=== PATIENT | male | born 1960 | race Caucasian/White ===

== ENCOUNTER → 2018-09-05 11:45 | Outpatient (CLI) | payer BC, MEDICARE, SELFPAY ==
--- NOTE | 2018-09-05 11:52 | VDUE_ITS ---
Reason For Study: ESRD Right Arm Left Arm Right Cephalic Vein at the wrist measures Left Cephalic Vein at the wrist measures 0.17 x 0.18 cm. 0.13 x 0.15 cm. Right Cephalic Vein in the forearm measures Left Cephalic Vein in the forearm measures 0.18 x 0.20 cm. 0.04 x 0.04 cm. Right Cephalic Vein below antecub measures Left Cephalic Vein below antecub measures 0.19 x 0.20 cm. 0.06 x 0.05 cm. Right Cephalic Vein above antecub measures Left Cephalic Vein above antecub measures 0.33 x 0.35 cm. 0.21 x 0.26 cm. Right Cephalic Vein mid bicep measures 0.29 Left Cephalic Vein at mid bicep measures x 0.30 cm. 0.22 x 0.25 cm. Right Cephalic Vein at the shoulder measures Left Cephalic Vein at the shoulder measures 0.40 x 0.41 cm. 0.38 x 0.37 cm. Right Basilic Vein at the origin measures Basilic vein at origin measures 0.37 x 0.36 0.54 x 0.52 cm. cm. Right Basilic Vein mid bicep measures 0.44 x Basilic vein at bicep measures 0.31 x 0.32 0.48 cm. cm. Right Basilic Vein above antecub measures Basilic vein above antecub measures 0.34 x 0.30 x 0.33 cm. 0.34 cm. Rt Brachial artery mesures 0.56 x 0.56 cm Lt Brachial artery measures 0.48 x 0.47 cm with a velocity of 86.7 cm/sec. with a velocity of 71.1 cm/sec. Rt Radial artery measures 0.25 x 0.24 cm Lt Radial artery measures 0.23 x 0.23 cm with a velocity of 72 cm/sec. with a velocity of 62.3 cm/sec. Interpretation Summary Patent and compressible bilateral upper extremity cephalic and basilic veins. Diminutive bilateral forearm cephalic veins Adequate bilateral upper arm basilic veins Normal diameter bilateral radial and brachial arteries. Ordering Physician: Dilan Grayson Performed By: Frida Carranza RVT ?
== END ==
PROVIDERS: Referring Provider Internal Medicine Nephrology; Visit Provider Internal Medicine Nephrology
DX: Z01.818 Encounter for other preprocedural examination (principal); N18.6 End stage renal disease
CPT/HCPCS: 93970; 93971; G0365

== ENCOUNTER → 2019-12-23 11:00 | Outpatient (CLI) | payer BC, MEDICARE, SELFPAY | DX: D84.9 Immunodeficiency, unspecified (principal); R05 Cough ==

== ENCOUNTER → 2020-02-18 15:21 | Outpatient (CLI) | payer MEDICARE, BC, SELFPAY ==
[2020-02-18 15:33] LABS: Bacteria 0 SEEN /hpf (None Seen); Mucous, Urine 0 SEEN /hpf (<or=2+); Red Blood Cells-Urine 0 SEEN /hpf (0-5); Squamous Epithelial Cells - UA 0 SEEN /hpf (0-5); White Blood Cells 0 SEEN /hpf (0-5)
[2020-02-18 18:20] LABS: Hematocrit 47.3 % (40-54); Hemoglobin 14.8 g/dL (13.0-16.5); Mean Corp Hgb Conc 31.3 g/dL (32-36); Mean Corpuscular Hgb 28.1 pg (27.0-32.0); Mean Corpuscular Volume 89.9 fL (80-94); Mean Platelet Vol. 9.4 fl (6.2-12.0); Platelet Count 237 K/mm3 (150-450); RBC Distribution Width CV 13.9 % (11.6-14.6); Red Blood Count 5.26 M/mm3 (4.6-6.2); White Blood Count 5.2 K/mm3 (4.4-11.0)
[2020-02-18 18:22] LABS: Color, Urine Yellow (Yellow); Glucose, Dipstick Normal (Normal); Ketone-Dipstick Negative (Negative); Leukocyte Esterase-Dipstick Negative /ul (Negative); Nitrite-Dipstick Negative (Negative); Occult Blood-Urine Negative /ul (Negative); Protein-Dipstick Negative (Negative); Urine Bilirubin Dipstick Negative (Negative); Urine Clarity Clear (Clear); Urine Urobilinogen Normal (Normal)
[2020-02-18 18:36] LABS: ALB/GLOB Ratio 1.1 RATIO (0.9-2.4); AST(SGOT) 15 U/L (15-37); Alanine Aminotransfer ALT/SGPT 31 U/L (16-61); Albumin, Serum 3.9 g/dL (3.2-5.0); Alkaline Phosphatase 115 U/L (45-117); Anion Gap 8 (5-15); BUN 22 mg/dL (7-18); BUN/Creat Ratio 18.2 RATIO (10-20); Calcium,Total 9.5 mg/dL (8.5-10.1); Chloride 109 mmol/L (98-107); Creatinine, Serum 1.21 mg/dL (0.70-1.30); EST Glomerular Filtration Rate 65 mL/min (>60); Est Glom Filt Rate - Afr Amer 79 mL/min (>60); Globulin 3.4 g/dL (2.2-4.2); Glucose 88 mg/dL (74-106); Magnesium 1.8 mg/dL (1.6-2.6); Phosphorus 2.9 mg/dL (2.5-4.9); Potassium 4.1 mmol/L (3.5-5.1); Protein, Total 7.3 g/dL (6.4-8.2); Sodium Level 140 mmol/L (136-145)
[2020-02-18 18:40] LABS: Vitamin D,25 Hydroxy 16.4 ng/mL
[2020-02-18 19:00] LABS: Microalbumin,Random Urine 10.1 mg/L (NO RANGE EST.); Microalbumin:Creatinine Ratio 9.6 mg/g CRE (<30 mg/g CRE); Protein, Urine (Random) 25.5 mg/dL (<11.9); Protein:Creat Ratio 243 mg/g CRE (0-200)
[2020-02-19 09:04] LABS: PTHIN 213.2 pg/mL (18.4-80.1)
[2020-02-23 07:25] LABS: Tacrolimus (FK506) 4.3 ng/mL (2.0-20.0)
== END ==
PROVIDERS: Referring Provider Pediatrics Pediatric Nephrology; Visit Provider Pediatrics Pediatric Nephrology
DX: D89.9 Disorder involving the immune mechanism, unspecified (principal); D64.9 Anemia, unspecified; E55.9 Vitamin D deficiency, unspecified; Z94.0 Kidney transplant status
CPT/HCPCS: 36415; 80053; 80197; 81001; 82043; 82306; 82570; 83735; 83970; 84100; 84156; 85027

== ENCOUNTER 2020-02-24 14:56 | Outpatient (RCR) | payer MEDICARE, BC, SELFPAY ==
[2020-02-24 18:19] LABS: Hemoglobin 14.8 g/dL (13.0-16.5); Mean Corp Hgb Conc 30.8 g/dL (32-36); Mean Corpuscular Hgb 28.4 pg (27.0-32.0); Mean Platelet Vol. 9.9 fl (6.2-12.0); Platelet Count 241 K/mm3 (150-450); RBC Distribution Width SD 47.6 fl (35.1-43.9); Red Blood Count 5.22 M/mm3 (4.6-6.2); White Blood Count 5.3 K/mm3 (4.4-11.0)
[2020-02-24 18:39] LABS: Anion Gap 6 (5-15); BUN 20 mg/dL (7-18); BUN/Creat Ratio 17.1 RATIO (10-20); Calcium,Total 9.5 mg/dL (8.5-10.1); Chloride 111 mmol/L (98-107); Creatinine, Serum 1.17 mg/dL (0.70-1.30); EST Glomerular Filtration Rate 68 mL/min (>60); Est Glom Filt Rate - Afr Amer 82 mL/min (>60); Glucose 72 mg/dL (74-106); Potassium 4.2 mmol/L (3.5-5.1); Sodium Level 141 mmol/L (136-145)
[2020-02-27 15:44] LABS: Tacrolimus (FK506) 2.1 ng/mL (2.0-20.0)
== END 2020-02-24 18:00 | disposition home or self-care (01) ==
LOC: MTLAB 14:56
DX: Z48.298 Encounter for aftercare following other organ transplant (principal); D50.0 Iron deficiency anemia secondary to blood loss (chronic); D84.9 Immunodeficiency, unspecified; R79.9 Abnormal finding of blood chemistry, unspecified; R68.89 Other general symptoms and signs; Z94.0 Kidney transplant status; Z79.899 Other long term (current) drug therapy
CPT/HCPCS: 36415; 80048; 80197; 85027

== ENCOUNTER 2020-03-23 16:26 | Outpatient (RCR) | payer MEDICARE, BC, SELFPAY ==
[2020-03-10 18:00] LABS: Hematocrit 50.8 % (40-54); Hemoglobin 15.5 g/dL (13.0-16.5); Mean Corp Hgb Conc 30.5 g/dL (32-36); Mean Corpuscular Hgb 27.9 pg (27.0-32.0); Mean Corpuscular Volume 91.5 fL (80-94); Mean Platelet Vol. 10.1 fl (6.2-12.0); Platelet Count 214 K/mm3 (150-450); RBC Distribution Width CV 13.7 % (11.6-14.6); RBC Distribution Width SD 46.7 fl (35.1-43.9); Red Blood Count 5.55 M/mm3 (4.6-6.2); White Blood Count 5.6 K/mm3 (4.4-11.0)
[2020-03-10 18:26] LABS: Anion Gap 8 (5-15); BUN 25 mg/dL (7-18); Chloride 110 mmol/L (98-107); Creatinine, Serum 1.25 mg/dL (0.70-1.30); EST Glomerular Filtration Rate 63 mL/min (>60); Est Glom Filt Rate - Afr Amer 76 mL/min (>60); Glucose 75 mg/dL (74-106); Sodium Level 140 mmol/L (136-145)
[2020-03-15 09:41] LABS: Tacrolimus (FK506) 4.8 ng/mL (2.0-20.0)
[2020-03-23 17:35] LABS: Hematocrit 50.6 % (40-54); Hemoglobin 15.6 g/dL (13.0-16.5); Mean Corp Hgb Conc 30.8 g/dL (32-36); Mean Corpuscular Hgb 28.3 pg (27.0-32.0); Mean Corpuscular Volume 91.8 fL (80-94); Mean Platelet Vol. 9.9 fl (6.2-12.0); Platelet Count 220 K/mm3 (150-450); RBC Distribution Width CV 13.6 % (11.6-14.6); Red Blood Count 5.51 M/mm3 (4.6-6.2); White Blood Count 5.8 K/mm3 (4.4-11.0)
[2020-03-23 17:59] LABS: Anion Gap 5 (5-15); BUN 19 mg/dL (7-18); Chloride 110 mmol/L (98-107); Creatinine, Serum 1.13 mg/dL (0.70-1.30); EST Glomerular Filtration Rate 70 mL/min (>60); Est Glom Filt Rate - Afr Amer 85 mL/min (>60); Glucose 75 mg/dL (74-106); Potassium 4.1 mmol/L (3.5-5.1); Sodium Level 141 mmol/L (136-145)
[2020-03-27 14:25] LABS: Tacrolimus (FK506) 5.7 ng/mL (2.0-20.0)
== END 2020-03-23 18:00 | disposition home or self-care (01) ==
LOC: MTLAB 16:26
DX: Z94.0 Kidney transplant status (principal); Z48.298 Encounter for aftercare following other organ transplant; D50.0 Iron deficiency anemia secondary to blood loss (chronic); D84.9 Immunodeficiency, unspecified; R79.9 Abnormal finding of blood chemistry, unspecified; R68.89 Other general symptoms and signs; Z79.899 Other long term (current) drug therapy
CPT/HCPCS: 36415; 80051; 80197; 82565; 82947; 84520; 85027

== ENCOUNTER 2020-05-04 16:06 | Outpatient (RCR) | payer MEDICARE, BC, SELFPAY ==
[2020-04-06 17:56] LABS: Hematocrit 52.3 % (40-54); Hemoglobin 16.5 g/dL (13.0-16.5); Mean Corp Hgb Conc 31.5 g/dL (32-36); Mean Corpuscular Volume 91.9 fL (80-94); Mean Platelet Vol. 9.8 fl (6.2-12.0); Platelet Count 204 K/mm3 (150-450); RBC Distribution Width CV 13.2 % (11.6-14.6); RBC Distribution Width SD 45.1 fl (35.1-43.9); Red Blood Count 5.69 M/mm3 (4.6-6.2); White Blood Count 6.1 K/mm3 (4.4-11.0)
[2020-04-06 18:07] LABS: AST(SGOT) 15 U/L (15-37); Alanine Aminotransfer ALT/SGPT 22 U/L (16-61); Alkaline Phosphatase 115 U/L (45-117); Anion Gap 8 (5-15); BUN 25 mg/dL (7-18); BUN/Creat Ratio 17.5 RATIO (10-20); Calcium,Total 10.2 mg/dL (8.5-10.1); Chloride 107 mmol/L (98-107); Creatinine, Serum 1.43 mg/dL (0.70-1.30); EST Glomerular Filtration Rate 54 mL/min (>60); Est Glom Filt Rate - Afr Amer 65 mL/min (>60); Glucose 90 mg/dL (74-106); Magnesium 1.7 mg/dL (1.6-2.6); Phosphorus 2.9 mg/dL (2.5-4.9); Potassium 4.4 mmol/L (3.5-5.1); Sodium Level 139 mmol/L (136-145); Uric Acid 5.9 mg/dL (3.5-7.2)
[2020-04-06 18:21] LABS: Protein:Creat Ratio 226 mg/g CRE (0-200)
[2020-04-11 13:05] LABS: Tacrolimus (FK506) 4.7 ng/mL (2.0-20.0)
[2020-04-20 17:44] LABS: Hematocrit 54.4 % (40-54); Hemoglobin 17.5 g/dL (13.0-16.5); Mean Corp Hgb Conc 32.2 g/dL (32-36); Mean Corpuscular Hgb 29.7 pg (27.0-32.0); Mean Corpuscular Volume 92.2 fL (80-94); Mean Platelet Vol. 9.9 fl (6.2-12.0); Platelet Count 200 K/mm3 (150-450); RBC Distribution Width CV 12.9 % (11.6-14.6); RBC Distribution Width SD 43.4 fl (35.1-43.9); White Blood Count 6.6 K/mm3 (4.4-11.0)
[2020-04-20 17:58] LABS: Anion Gap 5 (5-15); BUN 18 mg/dL (7-18); Chloride 110 mmol/L (98-107); Creatinine, Serum 1.35 mg/dL (0.70-1.30); EST Glomerular Filtration Rate 57 mL/min (>60); Est Glom Filt Rate - Afr Amer 69 mL/min (>60); Glucose 86 mg/dL (74-106); Potassium 4.4 mmol/L (3.5-5.1); Sodium Level 138 mmol/L (136-145)
[2020-04-23 20:18] LABS: Tacrolimus (FK506) 7.3 ng/mL (2.0-20.0)
[2020-05-04 17:48] LABS: Hematocrit 52.5 % (40-54); Hemoglobin 16.9 g/dL (13.0-16.5); Mean Corp Hgb Conc 32.2 g/dL (32-36); Mean Corpuscular Hgb 29.4 pg (27.0-32.0); Mean Corpuscular Volume 91.5 fL (80-94); Mean Platelet Vol. 9.9 fl (6.2-12.0); Platelet Count 243 K/mm3 (150-450); RBC Distribution Width CV 12.4 % (11.6-14.6); RBC Distribution Width SD 41.7 fl (35.1-43.9); Red Blood Count 5.74 M/mm3 (4.6-6.2); White Blood Count 6.7 K/mm3 (4.4-11.0)
[2020-05-04 18:07] LABS: Protein, Urine (Random) 27.7 mg/dL (<11.9); Protein:Creat Ratio 181 mg/g CRE (0-200)
[2020-05-04 18:11] LABS: AST(SGOT) 12 U/L (15-37); Alanine Aminotransfer ALT/SGPT 25 U/L (16-61); Albumin, Serum 3.9 g/dL (3.2-5.0); Alkaline Phosphatase 118 U/L (45-117); Anion Gap 6 (5-15); BUN 26 mg/dL (7-18); BUN/Creat Ratio 17.7 RATIO (10-20); Calcium,Total 9.8 mg/dL (8.5-10.1); Chloride 111 mmol/L (98-107); Creatinine, Serum 1.47 mg/dL (0.70-1.30); EST Glomerular Filtration Rate 52 mL/min (>60); Est Glom Filt Rate - Afr Amer 63 mL/min (>60); Glucose 100 mg/dL (74-106); Magnesium 1.9 mg/dL (1.6-2.6); Phosphorus 2.4 mg/dL (2.5-4.9); Potassium 4.1 mmol/L (3.5-5.1); Sodium Level 139 mmol/L (136-145); Uric Acid 7.3 mg/dL (3.5-7.2)
[2020-05-08 14:34] LABS: Tacrolimus (FK506) 6.8 ng/mL (2.0-20.0)
== END 2020-05-04 18:00 | disposition home or self-care (01) ==
LOC: MTLAB 16:06
DX: R79.9 Abnormal finding of blood chemistry, unspecified (principal); D50.0 Iron deficiency anemia secondary to blood loss (chronic); D84.9 Immunodeficiency, unspecified; R68.89 Other general symptoms and signs; Z94.0 Kidney transplant status; Z79.899 Other long term (current) drug therapy; Z48.298 Encounter for aftercare following other organ transplant
CPT/HCPCS: 36415; 80048; 80051; 80197; 82040; 82247; 82565; 82570; 82947; 83735; 84075; 84100; 84156; 84450; 84460; 84520; 84550; 85027

== ENCOUNTER 2020-06-01 16:02 | Outpatient (RCR) | payer MEDICARE, BC, SELFPAY ==
[2020-05-16 07:45] LABS: Absolute Lymphocyte Count 0.46 X10^3/uL (0.83-4.51); Absolute Neutrophil Count 2.2 X10^3/uL (2.0-7.7); Basophil# 0.03 X10^3/uL; Basophil% 0.9 % (0-1); Eosinophil# 0.07 X10^3/uL; Hematocrit 53.2 % (40-54); Lymphocyte # 0.46 X10^3/ul (4.0); Lymphocyte % 13.4 % (19-41); Mean Corpuscular Hgb 29.5 pg (27.0-32.0); Mean Corpuscular Volume 92.4 fL (80-94); Mean Platelet Vol. 9.5 fl (6.2-12.0); Monocyte# 0.65 X10^3/uL; NRBC Flagged by Analyzer 0 % (0-5); Neutrophil # 2.18 X10^3/uL (2.7-7.7); Neutrophil % 63.5 % (47-70); POSITIVE DIFFERENTIAL YES; Platelet Count 182 K/mm3 (150-450); RBC Distribution Width CV 12.3 % (11.6-14.6); RBC Distribution Width SD 42.1 fl (35.1-43.9); Red Blood Count 5.76 M/mm3 (4.6-6.2); White Blood Count 3.4 K/mm3 (4.4-11.0)
[2020-05-16 07:47] LABS: Differential Indicated SCAN CRITERIA MET
[2020-05-16 08:00] LABS: Protein, Urine (Random) 32.1 mg/dL (<11.9); Protein:Creat Ratio 223 mg/g CRE (0-200)
[2020-05-16 08:21] LABS: AST(SGOT) 15 U/L (15-37); Alanine Aminotransfer ALT/SGPT 24 U/L (16-61); Albumin, Serum 3.7 g/dL (3.2-5.0); Alkaline Phosphatase 106 U/L (45-117); Anion Gap 6 (5-15); BUN 17 mg/dL (7-18); BUN/Creat Ratio 13.4 RATIO (10-20); Bilirubin, Direct 0.11 mg/dL (0.00-0.30); Calcium,Total 9.9 mg/dL (8.5-10.1); Chloride 110 mmol/L (98-107); Cholesterol 161 mg/dL (200); Creatinine, Serum 1.27 mg/dL (0.70-1.30); EST Glomerular Filtration Rate 62 mL/min (>60); Est Glom Filt Rate - Afr Amer 74 mL/min (>60); Ferritin 899 ng/mL (26-388); Globulin 3.4 g/dL (2.2-4.2); Glucose 111 mg/dL (74-106); High Density Lipoprotein 45 mg/dL; Iron 63 ug/dL (65-175); Iron Binding Capacity,Total 229 ug/dL (250-450); Magnesium 1.9 mg/dL (1.6-2.6); PERCENT IRON SATURATION 27.5 % (15.0-55.0); Phosphorus 2.3 mg/dL (2.5-4.9); Potassium 4.3 mmol/L (3.5-5.1); Protein, Total 7.1 g/dL (6.4-8.2); Sodium Level 140 mmol/L (136-145); Triglycerides 198 mg/dL; Uric Acid 5.2 mg/dL (3.5-7.2); Very Low Density Lipoprotein 40 mg/dL (5-40)
[2020-05-16 09:41] LABS: Hemoglobin A1c 5.2 % (3.8-5.6)
[2020-05-18 12:19] LABS: Pathologist Review Reviewed
[2020-05-18 18:38] LABS: Protein, Urine (Random) 26.4 mg/dL (<11.9); Protein:Creat Ratio 259 mg/g CRE (0-200)
[2020-05-19 15:39] LABS: Tacrolimus (FK506) 3.5 ng/mL (2.0-20.0)
[2020-06-01 17:54] LABS: Hematocrit 51.5 % (40-54); Hemoglobin 16.2 g/dL (13.0-16.5); Mean Corp Hgb Conc 31.5 g/dL (32-36); Mean Corpuscular Hgb 28.4 pg (27.0-32.0); Mean Corpuscular Volume 90.4 fL (80-94); Mean Platelet Vol. 9.6 fl (6.2-12.0); Platelet Count 219 K/mm3 (150-450); RBC Distribution Width CV 12.3 % (11.6-14.6); RBC Distribution Width SD 40.3 fl (35.1-43.9); White Blood Count 6.2 K/mm3 (4.4-11.0)
[2020-06-01 18:19] LABS: Anion Gap 8 (5-15); BUN 18 mg/dL (7-18); Chloride 107 mmol/L (98-107); Creatinine, Serum 1.11 mg/dL (0.70-1.30); EST Glomerular Filtration Rate 72 mL/min (>60); Est Glom Filt Rate - Afr Amer 87 mL/min (>60); Glucose 86 mg/dL (74-106); Sodium Level 138 mmol/L (136-145)
[2020-06-01 18:30] LABS: PSA,Total - Annual Screen 2.48 ng/mL (0.00-4.00)
[2020-06-02 10:00] LABS: PTHIN 191.9 pg/mL (18.4-80.1)
== END 2020-06-01 18:00 | disposition home or self-care (01) ==
LOC: MTLAB 16:02
PROVIDERS: Family Medicine
DX: R79.9 Abnormal finding of blood chemistry, unspecified (principal); D50.0 Iron deficiency anemia secondary to blood loss (chronic); D84.9 Immunodeficiency, unspecified; R68.89 Other general symptoms and signs; Z94.0 Kidney transplant status; Z79.899 Other long term (current) drug therapy; Z48.298 Encounter for aftercare following other organ transplant; Z12.5 Encounter for screening for malignant neoplasm of prostate
CPT/HCPCS: 36415; 80048; 80051; 80061; 80076; 80197; 81050; 82565; 82570; 82728; 82947; 83036; 83540; 83550; 83735; 83970; 84100; 84153; 84156; 84520; 84550; 85025; 85027; G0103

== ENCOUNTER 2020-06-29 07:55 | Outpatient (RCR) | payer MEDICARE, BC, SELFPAY ==
[2020-06-15 18:01] LABS: Protein, Urine (Random) 40.2 mg/dL (<11.9); Protein:Creat Ratio 207 mg/g CRE (0-200)
[2020-06-15 18:08] LABS: Hematocrit 51.9 % (40-54); Hemoglobin 16.6 g/dL (13.0-16.5); Mean Corpuscular Hgb 28.4 pg (27.0-32.0); Mean Corpuscular Volume 88.9 fL (80-94); Mean Platelet Vol. 9.8 fl (6.2-12.0); Platelet Count 237 K/mm3 (150-450); RBC Distribution Width CV 12.4 % (11.6-14.6); RBC Distribution Width SD 40.2 fl (35.1-43.9); Red Blood Count 5.84 M/mm3 (4.6-6.2); White Blood Count 7.2 K/mm3 (4.4-11.0)
[2020-06-15 18:23] LABS: AST(SGOT) 15 U/L (15-37); Alanine Aminotransfer ALT/SGPT 26 U/L (16-61); Alkaline Phosphatase 107 U/L (45-117); Anion Gap 11 (5-15); BUN 20 mg/dL (7-18); BUN/Creat Ratio 14.1 RATIO (10-20); Calcium,Total 9.7 mg/dL (8.5-10.1); Chloride 107 mmol/L (98-107); Creatinine, Serum 1.42 mg/dL (0.70-1.30); EST Glomerular Filtration Rate 54 mL/min (>60); Est Glom Filt Rate - Afr Amer 65 mL/min (>60); Glucose 136 mg/dL (74-106); Magnesium 1.5 mg/dL (1.6-2.6); Phosphorus 2.4 mg/dL (2.5-4.9); Potassium 3.9 mmol/L (3.5-5.1); Sodium Level 140 mmol/L (136-145); Uric Acid 5.7 mg/dL (3.5-7.2)
[2020-06-19 12:48] LABS: Tacrolimus (FK506) 7.3 ng/mL (2.0-20.0)
[2020-06-29 10:39] LABS: Absolute Lymphocyte Count 0.67 X10^3/uL (0.83-4.51); Absolute Neutrophil Count 3.5 X10^3/uL (2.0-7.7); Basophil# 0.02 X10^3/uL; Basophil% 0.4 % (0-1); Hematocrit 49.3 % (40-54); Hemoglobin 15.9 g/dL (13.0-16.5); Lymphocyte # 0.67 X10^3/ul (0.83-4.51); Lymphocyte % 13.6 % (19-41); Mean Corp Hgb Conc 32.3 g/dL (32-36); Mean Corpuscular Hgb 28.9 pg (27.0-32.0); Mean Corpuscular Volume 89.6 fL (80-94); Mean Platelet Vol. 9.9 fl (6.2-12.0); Monocyte# 0.58 X10^3/uL; Monocyte% 11.8 % (0-10); NRBC Flagged by Analyzer 0 % (0-5); Neutrophil # 3.51 X10^3/uL (2.7-7.7); Neutrophil % 71.6 % (47-70); Platelet Count 222 K/mm3 (150-450); RBC Distribution Width CV 12.7 % (11.6-14.6); RBC Distribution Width SD 41.7 fl (35.1-43.9); White Blood Count 4.9 K/mm3 (4.4-11.0)
[2020-06-29 10:51] LABS: Protein:Creat Ratio 209 mg/g CRE (0-200)
[2020-06-29 10:55] LABS: AST(SGOT) 14 U/L (15-37); Alanine Aminotransfer ALT/SGPT 21 U/L (16-61); Albumin, Serum 3.7 g/dL (3.2-5.0); Alkaline Phosphatase 96 U/L (45-117); BUN 19 mg/dL (7-18); Calcium,Total 9.6 mg/dL (8.5-10.1); Chloride 108 mmol/L (98-107); Creatinine, Serum 1.09 mg/dL (0.70-1.30); EST Glomerular Filtration Rate 73 mL/min (>60); Est Glom Filt Rate - Afr Amer 89 mL/min (>60); Glucose 109 mg/dL (74-106); Phosphorus 2.2 mg/dL (2.5-4.9); Potassium 4.3 mmol/L (3.5-5.1); Sodium Level 139 mmol/L (136-145); Uric Acid 4.9 mg/dL (3.5-7.2)
[2020-07-01 13:32] LABS: Tacrolimus (FK506) 3.6 ng/mL (2.0-20.0)
== END 2020-06-29 18:00 | disposition home or self-care (01) ==
LOC: MTLAB 07:55
DX: R79.9 Abnormal finding of blood chemistry, unspecified (principal); D50.0 Iron deficiency anemia secondary to blood loss (chronic); D84.9 Immunodeficiency, unspecified; R68.89 Other general symptoms and signs; Z94.0 Kidney transplant status; Z79.899 Other long term (current) drug therapy; Z48.298 Encounter for aftercare following other organ transplant
CPT/HCPCS: 36415; 80048; 80197; 82040; 82247; 82310; 82374; 82435; 82565; 82570; 82947; 83735; 84075; 84100; 84132; 84156; 84295; 84450; 84460; 84520; 84550; 85025; 85027

== ENCOUNTER 2020-07-27 16:25 | Outpatient (RCR) | payer MEDICARE, BC, SELFPAY ==
[2020-07-13 17:49] LABS: Hemoglobin 15.8 g/dL (13.0-16.5); Mean Corp Hgb Conc 32.9 g/dL (32-36); Mean Corpuscular Hgb 29.5 pg (27.0-32.0); Mean Corpuscular Volume 89.7 fL (80-94); Platelet Count 226 K/mm3 (150-450); RBC Distribution Width CV 12.6 % (11.6-14.6); RBC Distribution Width SD 41.4 fl (35.1-43.9); Red Blood Count 5.35 M/mm3 (4.6-6.2); White Blood Count 7.6 K/mm3 (4.4-11.0)
[2020-07-13 18:09] LABS: AST(SGOT) 17 U/L (15-37); Alanine Aminotransfer ALT/SGPT 27 U/L (16-61); Albumin, Serum 3.9 g/dL (3.2-5.0); Alkaline Phosphatase 119 U/L (45-117); Anion Gap 11 (5-15); BUN 16 mg/dL (7-18); BUN/Creat Ratio 10.8 RATIO (10-20); Calcium,Total 9.8 mg/dL (8.5-10.1); Chloride 108 mmol/L (98-107); Creatinine, Serum 1.48 mg/dL (0.70-1.30); EST Glomerular Filtration Rate 52 mL/min (>60); Est Glom Filt Rate - Afr Amer 62 mL/min (>60); Glucose 112 mg/dL (74-106); Magnesium 1.7 mg/dL (1.6-2.6); Phosphorus 2.4 mg/dL (2.5-4.9); Potassium 4.3 mmol/L (3.5-5.1); Sodium Level 140 mmol/L (136-145); Uric Acid 5.9 mg/dL (3.5-7.2)
[2020-07-13 18:16] LABS: Protein, Urine (Random) 45.9 mg/dL (<11.9); Protein:Creat Ratio 228 mg/g CRE (0-200)
[2020-07-27 18:11] LABS: Hematocrit 47.4 % (40-54); Hemoglobin 15.3 g/dL (13.0-16.5); Mean Corp Hgb Conc 32.3 g/dL (32-36); Mean Corpuscular Hgb 29.1 pg (27.0-32.0); Mean Corpuscular Volume 90.3 fL (80-94); Mean Platelet Vol. 9.7 fl (6.2-12.0); Platelet Count 236 K/mm3 (150-450); RBC Distribution Width CV 13.1 % (11.6-14.6); RBC Distribution Width SD 43.1 fl (35.1-43.9); Red Blood Count 5.25 M/mm3 (4.6-6.2); White Blood Count 6.6 K/mm3 (4.4-11.0)
[2020-07-27 18:29] LABS: Anion Gap 9 (5-15); BUN 16 mg/dL (7-18); Chloride 109 mmol/L (98-107); EST Glomerular Filtration Rate 55 mL/min (>60); Est Glom Filt Rate - Afr Amer 66 mL/min (>60); Glucose 93 mg/dL (74-106); Potassium 4.4 mmol/L (3.5-5.1); Sodium Level 140 mmol/L (136-145)
[2020-08-01 08:28] LABS: Tacrolimus (FK506) 5.3 ng/mL (2.0-20.0)
== END 2020-07-27 18:00 | disposition home or self-care (01) ==
LOC: MTLAB 16:25
DX: Z48.298 Encounter for aftercare following other organ transplant (principal); Z11.59 Encounter for screening for other viral diseases; E11.22 Type 2 diabetes mellitus with diabetic chronic kidney disease; I10 Essential (primary) hypertension; D50.0 Iron deficiency anemia secondary to blood loss (chronic); R79.9 Abnormal finding of blood chemistry, unspecified; Z94.0 Kidney transplant status
CPT/HCPCS: 36415; 80048; 80051; 80197; 82040; 82247; 82565; 82570; 82947; 83735; 84075; 84100; 84156; 84450; 84460; 84520; 84550; 85027

== ENCOUNTER 2020-08-24 16:18 | Outpatient (RCR) | payer MEDICARE, BC, SELFPAY ==
[2020-08-24 17:44] LABS: Hematocrit 47.4 % (40-54); Hemoglobin 15.5 g/dL (13.0-16.5); Mean Corp Hgb Conc 32.7 g/dL (32-36); Mean Corpuscular Hgb 29.8 pg (27.0-32.0); Platelet Count 235 K/mm3 (150-450); RBC Distribution Width CV 12.9 % (11.6-14.6); RBC Distribution Width SD 43.2 fl (35.1-43.9); Red Blood Count 5.21 M/mm3 (4.6-6.2); White Blood Count 5.4 K/mm3 (4.4-11.0)
[2020-08-24 18:32] LABS: AST(SGOT) 15 U/L (15-37); Alanine Aminotransfer ALT/SGPT 29 U/L (16-61); Albumin, Serum 3.9 g/dL (3.2-5.0); Alkaline Phosphatase 115 U/L (45-117); Anion Gap 8 (5-15); BUN 18 mg/dL (7-18); Calcium,Total 9.4 mg/dL (8.5-10.1); Chloride 109 mmol/L (98-107); Cholesterol 187 mg/dL (200); Creatinine, Serum 1.29 mg/dL (0.70-1.30); EST Glomerular Filtration Rate 60 mL/min (>60); Est Glom Filt Rate - Afr Amer 73 mL/min (>60); Ferritin 988 ng/mL (26-388); Glucose 98 mg/dL (74-106); High Density Lipoprotein 37 mg/dL; Iron 111 ug/dL (65-175); Iron Binding Capacity,Total 210 ug/dL (250-450); Magnesium 1.7 mg/dL (1.6-2.6); Phosphorus 2.5 mg/dL (2.5-4.9); Potassium 4.1 mmol/L (3.5-5.1); Sodium Level 141 mmol/L (136-145); Triglycerides 486 mg/dL
[2020-08-24 18:36] LABS: Protein, Urine (Random) 38.2 mg/dL (<11.9); Protein:Creat Ratio 211 mg/g CRE (0-200)
[2020-08-27 10:58] LABS: Tacrolimus (FK506) 3.7 ng/mL (2.0-20.0); Transferrin 156 mg/dL (177-329)
== END 2020-08-24 18:00 | disposition home or self-care (01) ==
LOC: MTLAB 16:18
PROVIDERS: PCP Family Medicine
DX: Z48.298 Encounter for aftercare following other organ transplant (principal); Z11.59 Encounter for screening for other viral diseases; I10 Essential (primary) hypertension; D50.0 Iron deficiency anemia secondary to blood loss (chronic); E11.22 Type 2 diabetes mellitus with diabetic chronic kidney disease; R79.9 Abnormal finding of blood chemistry, unspecified; Z94.0 Kidney transplant status
CPT/HCPCS: 80048; 80061; 80197; 82040; 82247; 82570; 82728; 83540; 83550; 83735; 84075; 84100; 84156; 84450; 84460; 84466; 84550; 85027

== ENCOUNTER 2020-09-16 16:22 | Outpatient (RCR) | payer MEDICARE, BC, SELFPAY ==
[2020-09-16 16:31] LABS: Bacteria 0 SEEN /hpf (None Seen); Mucous, Urine 0 SEEN /hpf (<or=2+); Red Blood Cells-Urine 0 SEEN /hpf (0-5); Squamous Epithelial Cells - UA 0 SEEN /hpf (0-5); White Blood Cells 0 SEEN /hpf (0-5)
[2020-09-16 17:43] LABS: Hematocrit 49.5 % (40-54); Mean Corp Hgb Conc 32.3 g/dL (32-36); Mean Corpuscular Hgb 29.4 pg (27.0-32.0); Platelet Count 239 K/mm3 (150-450); RBC Distribution Width CV 12.7 % (11.6-14.6); RBC Distribution Width SD 41.9 fl (35.1-43.9); Red Blood Count 5.44 M/mm3 (4.6-6.2); White Blood Count 5.8 K/mm3 (4.4-11.0)
[2020-09-16 17:51] LABS: Color, Urine Yellow (Yellow); Glucose, Dipstick Normal (Normal); Ketone-Dipstick Negative (Negative); Leukocyte Esterase-Dipstick Negative /ul (Negative); Nitrite-Dipstick Negative (Negative); Occult Blood-Urine Negative /ul (Negative); Protein-Dipstick 15 mg/dl (Negative); Specific Gravity, Urine 1.015 (1.002-1.030); Urine Bilirubin Dipstick Negative (Negative); Urine Clarity Clear (Clear); Urine Urobilinogen 1 mg/dl (Normal); Urine pH 6.5 (5.0 - 8.0)
[2020-09-16 18:08] LABS: ALB/GLOB Ratio 1.2 RATIO (0.9-2.4); AST(SGOT) 21 U/L (15-37); Alanine Aminotransfer ALT/SGPT 26 U/L (16-61); Albumin, Serum 4.1 g/dL (3.2-5.0); Alkaline Phosphatase 97 U/L (45-117); Anion Gap 6 (5-15); BUN 18 mg/dL (7-18); BUN/Creat Ratio 14.3 RATIO (10-20); Calcium,Total 9.9 mg/dL (8.5-10.1); Chloride 109 mmol/L (98-107); Creatinine, Serum 1.26 mg/dL (0.70-1.30); EST Glomerular Filtration Rate 62 mL/min (>60); Est Glom Filt Rate - Afr Amer 75 mL/min (>60); Globulin 3.4 g/dL (2.2-4.2); Glucose 92 mg/dL (74-106); Magnesium 1.8 mg/dL (1.6-2.6); Phosphorus 3.2 mg/dL (2.5-4.9); Potassium 4.1 mmol/L (3.5-5.1); Protein, Total 7.5 g/dL (6.4-8.2); Sodium Level 141 mmol/L (136-145)
[2020-09-16 18:12] LABS: Microalbumin,Random Urine 20.5 mg/L (NO RANGE EST.); Microalbumin:Creatinine Ratio 9.3 mg/g CRE (<30 mg/g CRE); Protein, Urine (Random) 45.6 mg/dL (<11.9); Protein:Creat Ratio 206 mg/g CRE (0-200)
[2020-09-17 08:29] LABS: PTHIN 346.7 pg/mL (18.4-80.1)
[2020-09-21 08:46] LABS: Tacrolimus (FK506) 5.1 ng/mL (2.0-20.0)
== END 2020-09-16 18:00 | disposition home or self-care (01) ==
LOC: MTLAB 16:22
PROVIDERS: PCP Family Medicine
DX: Z94.0 Kidney transplant status (principal); Z48.298 Encounter for aftercare following other organ transplant; R79.9 Abnormal finding of blood chemistry, unspecified; E11.22 Type 2 diabetes mellitus with diabetic chronic kidney disease; Z11.59 Encounter for screening for other viral diseases; D50.0 Iron deficiency anemia secondary to blood loss (chronic); D89.9 Disorder involving the immune mechanism, unspecified; E83.42 Hypomagnesemia; N18.9 Chronic kidney disease, unspecified; I12.9 Hypertensive chronic kidney disease with stage 1 through stage 4 chronic kidney disease, or unspecified chronic kidney disease
CPT/HCPCS: 36415; 80053; 80197; 81001; 82043; 82570; 83735; 83970; 84100; 84156; 85027

== ENCOUNTER 2020-10-27 16:41 | Outpatient (RCR) | payer MEDICARE, BC, SELFPAY ==
[2020-10-27 18:07] LABS: Hematocrit 50.9 % (40-54); Hemoglobin 16.5 g/dL (13.0-16.5); Mean Corp Hgb Conc 32.4 g/dL (32-36); Mean Corpuscular Hgb 29.2 pg (27.0-32.0); Mean Corpuscular Volume 89.9 fL (80-94); Mean Platelet Vol. 9.6 fl (6.2-12.0); Platelet Count 216 K/mm3 (150-450); RBC Distribution Width CV 12.4 % (11.6-14.6); RBC Distribution Width SD 40.4 fl (35.1-43.9); Red Blood Count 5.66 M/mm3 (4.6-6.2); White Blood Count 6.6 K/mm3 (4.4-11.0)
[2020-10-27 18:25] LABS: Anion Gap 6 (5-15); BUN 22 mg/dL (7-18); Chloride 112 mmol/L (98-107); Creatinine, Serum 1.09 mg/dL (0.70-1.30); EST Glomerular Filtration Rate 73 mL/min (>60); Est Glom Filt Rate - Afr Amer 89 mL/min (>60); Glucose 104 mg/dL (74-106); Potassium 4.2 mmol/L (3.5-5.1); Sodium Level 140 mmol/L (136-145)
[2020-10-31 08:31] LABS: Tacrolimus (FK506) 8.1 ng/mL (2.0-20.0)
== END 2020-10-27 18:00 | disposition home or self-care (01) ==
LOC: MTLAB 16:41
PROVIDERS: PCP Family Medicine
DX: Z48.298 Encounter for aftercare following other organ transplant (principal); Z11.59 Encounter for screening for other viral diseases; I12.9 Hypertensive chronic kidney disease with stage 1 through stage 4 chronic kidney disease, or unspecified chronic kidney disease; E11.22 Type 2 diabetes mellitus with diabetic chronic kidney disease; N18.9 Chronic kidney disease, unspecified; D50.0 Iron deficiency anemia secondary to blood loss (chronic); R79.9 Abnormal finding of blood chemistry, unspecified; Z94.0 Kidney transplant status
CPT/HCPCS: 36415; 80051; 80197; 82565; 82947; 84520; 85027

== ENCOUNTER 2020-11-24 16:23 | Outpatient (RCR) | payer MEDICARE, BC, SELFPAY ==
[2020-11-24 18:06] LABS: Hematocrit 47.3 % (40-54); Hemoglobin 15.6 g/dL (13.0-16.5); Mean Corpuscular Hgb 29.1 pg (27.0-32.0); Mean Corpuscular Volume 88.2 fL (80-94); Mean Platelet Vol. 10.1 fl (6.2-12.0); Platelet Count 217 K/mm3 (150-450); RBC Distribution Width CV 12.2 % (11.6-14.6); RBC Distribution Width SD 39.6 fl (35.1-43.9); Red Blood Count 5.36 M/mm3 (4.6-6.2)
[2020-11-24 18:26] LABS: AST(SGOT) 15 U/L (15-37); Alanine Aminotransfer ALT/SGPT 23 U/L (16-61); Albumin, Serum 3.6 g/dL (3.2-5.0); Alkaline Phosphatase 103 U/L (45-117); Anion Gap 8 (5-15); BUN 17 mg/dL (7-18); BUN/Creat Ratio 16.7 RATIO (10-20); Calcium,Total 9.7 mg/dL (8.5-10.1); Chloride 108 mmol/L (98-107); Creatinine, Serum 1.02 mg/dL (0.70-1.30); EST Glomerular Filtration Rate 79 mL/min (>60); Est Glom Filt Rate - Afr Amer 96 mL/min (>60); Glucose 87 mg/dL (74-106); Magnesium 1.7 mg/dL (1.6-2.6); Phosphorus 2.4 mg/dL (2.5-4.9); Potassium 4.1 mmol/L (3.5-5.1); Sodium Level 140 mmol/L (136-145)
[2020-11-30 19:30] LABS: Tacrolimus (FK506) 6.4 ng/mL (2.0-20.0)
== END 2020-12-06 18:00 | disposition home or self-care (01) ==
LOC: MTLAB 16:23
PROVIDERS: PCP Family Medicine
DX: I12.9 Hypertensive chronic kidney disease with stage 1 through stage 4 chronic kidney disease, or unspecified chronic kidney disease (principal); Z48.298 Encounter for aftercare following other organ transplant; Z11.59 Encounter for screening for other viral diseases; D50.0 Iron deficiency anemia secondary to blood loss (chronic); E11.22 Type 2 diabetes mellitus with diabetic chronic kidney disease; R79.9 Abnormal finding of blood chemistry, unspecified; Z94.0 Kidney transplant status; N18.9 Chronic kidney disease, unspecified
CPT/HCPCS: 36415; 80048; 80197; 82040; 82247; 83735; 84075; 84100; 84450; 84460; 85027

== ENCOUNTER 2020-11-25 08:41 | Observation (INO) | payer MEDICARE, BC, SELFPAY ==
[2020-11-25] VITALS (36 sets, daily range): BP systolic 77–131; BP diastolic 54–105; PULSE 58–142; RESP 12–23; TEMP 35.8–36.7; O2SAT 94–100; BMI 34.7; BMI 34.9
--- NOTE | 2020-11-25 08:54 | EKG12_ITS ---
Test Reason : PALP Blood Pressure : / mmHG Vent. Rate : 149 BPM Atrial Rate : 150 BPM P-R Int : 000 ms QRS Dur : 084 ms QT Int : 294 ms P-R-T Axes : 000 -02 -02 degrees QTc Int : 463 ms Atrial fibrillation Abnormal ECG Confirmed by BRENDA BUTLER, NICO ([id number]), pictures editor STEPHANIE BOBBY ([id number]) on 11/26/2020 1:46:53 P M Referred By: DEYA Confirmed By:NAZ GUTIERREZ MD
--- NOTE | 2020-11-25 08:55 | EX.ED.DYSGE1 ---
HPI History of Present Illness Chief Complaint: Palpitations Narrative Narrative: Patient has a history of atrial fibrillation but he is normally in sinus rhythm regardless he is anticoagulated with Eliquis and he takes it every day twice daily. He woke up in the middle the night with palpitations. These persisted the morning. He has no chest pain he has no back pain or tearing sensation. No fevers or chills. PFSH PFS Medical History Afib Polycystic kidney disease Home Medications apixaban [Eliquis] 5 mg PO BID 11/25/20 [History Last Taken Unknown] famotidine 20 mg PO DAILY 11/25/20 [History Last Taken Unknown] magnesium oxide 400 mg PO DAILY 11/25/20 [History Last Taken Unknown] metoprolol succinate 25 mg PO DAILY 11/25/20 [History Last Taken Unknown] Allergy/AdvReac Type Severity Reaction Status Date / Time Acnysyn-Nlv-Djr Reductase Allergy NEEDS Verified 11/25/20 08:59 Inhibitor FOLLOW-UP Surgical History Kidney transplant recipient Social History Smoking Status: Never smoker ROS ROS ED ROS Narrative Past medical history: Reviewed, significant for atrial fibrillation, polycystic kidney disease status post transplant, he is on immunosuppressant agents. Medications: Reviewed Social history: Noncontributory Review of systems: All systems negative except as indicated General: No fever Eyes: No visual changes ENT: No upper airway congestion, normal voice Neck: No neck pain Cardiovascular: No chest pain. Palpitations as in HPI Respiratory: No shortness of breath or cough Gastrointestinal: No abdominal pain, nausea vomiting or diarrhea Genitourinary: No dysuria Musculoskeletal: Denies myalgias no difficulty with ambulation Skin: No rash Neurological: No memory loss, confusion or any focal weakness Psych: No recent behavioral changes Hematologic: No easy bleeding or easy bruising EXAM Physical Exam Narrative Exam Narrative: Physical exam General: He appears relatively comfortable in bed. Head: Normocephalic, Atraumatic Eyes: Conjunctiva not pale ENT: Moist mucous membranes Neck: Supple, Nontender, No lymphadenopathy Cardiovascular: Irregular tachycardia Respiratory: No distress, CTA bilaterally Abdomen: Soft, Nontender, Nondistended Back: Nontender, Normal Inspection. Negative for: CVA tenderness Extremities: Nontender, No edema Skin: Normal color, No rash Neurological: Alert, Normal Strength, Normal Sensation Psychological: Normal affect Const Vital Signs: 11/25/20 08:42 11/25/20 08:53 11/25/20 08:57 Temperature 96.4 F L Temperature Source Temporal Pulse Rate 58 L Pulse Rate [1 (Initial Baseline)] Pulse Rate [2] Pulse Rate [3] Respiratory Rate 19 H Respiratory Rate [1 (Initial Baseline)] Respiratory Rate [2] Respiratory Rate [3] Respiratory Effort Normal Non-Labored Blood Pressure 129/88 H Blood Pressure [1 (Initial Baseline)] Blood Pressure [2] Blood Pressure Mean 101 Pulse Ox 100 98 Oxygen Delivery Method Room Air Room Air Oxygen Delivery Method [1 (Initial Baseline)] Oxygen Delivery Method [2] Oxygen Delivery Method [3] Oxygen Flow Rate (L/min) Oxygen Flow Rate (L/min) [1 (Initial Baseline)] Oxygen Flow Rate (L/min) [2] Oxygen Flow Rate (L/min) [3] 11/25/20 09:40 11/25/20 09:41 11/25/20 09:57 Temperature Temperature Source Pulse Rate 136 H 128 H Pulse Rate [1 (Initial Baseline)] 128 H Pulse Rate [2] 134 H Pulse Rate [3] 127 H Respiratory Rate 18 20 H Respiratory Rate [1 (Initial Baseline)] 20 H Respiratory Rate [2] 23 H Respiratory Rate [3] 15 Respiratory Effort Blood Pressure 118/105 H 118/105 H Blood Pressure [1 (Initial Baseline)] 106/88 H Blood Pressure [2] 106/88 H Blood Pressure Mean 109 Pulse Ox 96 96 Oxygen Delivery Method Nasal Cannula Oxygen Delivery Method [1 (Initial Baseline)] Nasal Cannula Oxygen Delivery Method [2] Nasal Cannula Oxygen Delivery Method [3] Nasal Cannula Oxygen Flow Rate (L/min) 2 Oxygen Flow Rate (L/min) [1 (Initial Baseline)] 2 Oxygen Flow Rate (L/min) [2] 5 Oxygen Flow Rate (L/min) [3] 6 11/25/20 10:07 Temperature Temperature Source Pulse Rate 142 H Pulse Rate [1 (Initial Baseline)] Pulse Rate [2] Pulse Rate [3] Respiratory Rate 18 Respiratory Rate [1 (Initial Baseline)] Respiratory Rate [2] Respiratory Rate [3] Respiratory Effort Blood Pressure 89/70 L Blood Pressure [1 (Initial Baseline)] Blood Pressure [2] Blood Pressure Mean Pulse Ox 95 Oxygen Delivery Method Nasal Cannula Oxygen Delivery Method [1 (Initial Baseline)] Oxygen Delivery Method [2] Oxygen Delivery Method [3] Oxygen Flow Rate (L/min) 6 Oxygen Flow Rate (L/min) [1 (Initial Baseline)] Oxygen Flow Rate (L/min) [2] Oxygen Flow Rate (L/min) [3] MDM MDM MDM Narrative Medical decision making narrative: I discussed with the patient, he tells me his symptoms started last night, he has been taking his Eliquis therefore I thought it was reasonable to cardiovert especially that his initial blood pressure was 89/70. I did not want to give him diltiazem or any other AV ronen blocking agents at the time. I did attempt cardioversion 1st with 150 J and then with 200 J of biphasic energy, the cardioversion was unsuccessful. His blood pressure however has improved. I gave him 10 mg of Cardizem, I put him on a Cardizem drip and gave him digoxin I will admit him. Procedure note: Procedural sedation Cardioversion Written consent obtained Indication atrial fibrillation A total of 5 mg of Versed was given by me, when the patient was adequately sedated I shocked with 150 J of synchronized cardioversion, this was unsuccessful I then proceeded to 200 J synchronized biphasic cardioversion and still unsuccessful. Patient awoke and is now lucid and coherent. He tolerated procedure well although the procedure was unsuccessful Lab Data Labs: Laboratory Results - last 24 hr 11/25/20 11/25/20 08:50 08:50 WBC 6.6 RBC 5.80 Hgb 16.9 H Hct 51.9 MCV 89.5 MCH 29.1 MCHC 32.6 RDW Std Deviation 39.8 RDW Coeff of Te 12.1 Plt Count 241 MPV 9.5 Immature Gran % (Auto) 0.600 Neut % (Auto) 67.3 Lymph % (Auto) 19.8 Weld % (Auto) 11.0 H Eos % (Auto) 0.8 Baso % (Auto) 0.5 Absolute Neuts (auto) 4.4 Absolute Lymphs (auto) 1.30 Nucleated RBC % 0 Sodium 142 Potassium 4.4 Chloride 109 H Carbon Dioxide 27.0 Anion Gap 6 BUN 14 Creatinine 1.16 Estim Creat Clear Calc 67.72 Est GFR (MDRD) Af Amer 82 Est GFR (MDRD) Non-Af 68 BUN/Creatinine Ratio 12.1 Glucose 130 H Calcium 9.9 Troponin I High Sens 8 Radiography Diagnostic Testing: Clinical Impression(s) from Imaging Studies Chest X-Ray 11/25/20 09:05 IMPRESSION: Lungs are clear. Electronically Signed: Linwood Alvarenga MD at 9:23 EDT , Service support , EKG Initial EKG: Comments: A. fib with RVR at a rate of 149. Normal QTc interval. No obvious ischemic changes. Interpreted by emergency doctor Critical Care Time Critical Care Time: Yes Critical care time (excluding procedures): 30-74 minutes and - (30 min) Discharge Plan Triage Chief Complaint: Palpitations ED Provider: Bert Mina Dx/Rx/DC Orders Clinical Impression: Atrial fibrillation Instructions: ED AFIB Prescriptions: No Action famotidine 20 mg Tablet 20 mg PO DAILY RF: 0 magnesium oxide 400 mg magnesium Capsule 400 mg PO DAILY RF: 0 Eliquis 5 mg tablet 5 mg PO BID RF: 0 metoprolol succinate 25 mg Capsule,Sprinkle,Er 24hr 25 mg PO DAILY RF: 0 Primary Care Provider: Ramon Carrillo Referrals: Ramon Carrillo MD [Primary Care Provider] - Disposition Disposition: Acute Care Hospital [facility]
[2020-11-25] MEDS: Aspirin 81 MG TAB.CHEW 324 MG PO (08:59)
[2020-11-25 09:02] LABS: Absolute Neutrophil Count 4.4 X10^3/uL (2.0-7.7); Basophil# 0.03 X10^3/uL; Basophil% 0.5 % (0-1); Eosinophil# 0.05 X10^3/uL; Eosinophils% 0.8 % (0-5); Hematocrit 51.9 % (40-54); Hemoglobin 16.9 g/dL (13.0-16.5); Lymphocyte % 19.8 % (19-41); Mean Corp Hgb Conc 32.6 g/dL (32-36); Mean Corpuscular Hgb 29.1 pg (27.0-32.0); Mean Corpuscular Volume 89.5 fL (80-94); Mean Platelet Vol. 9.5 fl (6.2-12.0); Monocyte# 0.72 X10^3/uL; NRBC Flagged by Analyzer 0 % (0-5); Neutrophil # 4.41 X10^3/uL (2.7-7.7); Neutrophil % 67.3 % (47-70); Platelet Count 241 K/mm3 (150-450); RBC Distribution Width CV 12.1 % (11.6-14.6); RBC Distribution Width SD 39.8 fl (35.1-43.9); White Blood Count 6.6 K/mm3 (4.4-11.0)
--- NOTE | 2020-11-25 09:05 | RAD_ITS ---
STUDY: X-RAY CHEST REASON FOR EXAM: Male, 60 years old. Chest pain. Atrial fibrillation. TECHNIQUE: Single AP portable view of the chest. COMPARISON: None. FINDINGS: EKG electrodes are seen. The lungs are clear and expanded. There is no demonstrated pleural abnormality. Normal size heart. Normal mediastinum and martín. Normal visualized pulmonary arteries. There is atherosclerotic tortuosity of the aortic arch and descending thoracic aorta. Normal visualized thoracic spine. Normal visualized ribs, clavicles, and shoulders. There is no demonstrated abnormality of the visualized soft tissue structures of the upper abdomen. RAD/Chest 1 View (Portable) IMPRESSION: Lungs are clear. Electronically Signed: Linwood Alvarenga MD at 9:23 EDT , Service support ,
[2020-11-25 09:18] LABS: Anion Gap 6 (5-15); BUN 14 mg/dL (7-18); BUN/Creat Ratio 12.1 RATIO (10-20); Calcium,Total 9.9 mg/dL (8.5-10.1); Chloride 109 mmol/L (98-107); Creatinine, Serum 1.16 mg/dL (0.70-1.30); EST Glomerular Filtration Rate 68 mL/min (>60); Est Glom Filt Rate - Afr Amer 82 mL/min (>60); Estimated Creatinine Clearance 67.72 ml/min; Glucose 130 mg/dL (74-106); Potassium 4.4 mmol/L (3.5-5.1); Sodium Level 142 mmol/L (136-145); Troponin-I HS 8 pg/mL (3.0-78.0)
--- NOTE | 2020-11-25 09:20 | ED.RN ---
rn at bedside to administer iv cardizem 20mg. rn obtained bp 1st was 87/63 & 2nd was 98/76. dr vega notified at this time. per dr vega hold cardizem dose.
[2020-11-25] MEDS: Midazolam 5 MG/ML Syringe IV ×2 (10:15→11:42)
[2020-11-25] MEDS: 0.9% Normal Saline 1,000 ML 999 ML IV (10:22)
--- NOTE | 2020-11-25 10:27 | ED.RN ---
PT HYPOTENSIVE POST SEdation medication administration per dr. vega.dr. informed. briggs held at this time. fluid bolus ordered.
[2020-11-25] MEDS: Digoxin 125 MCG Tablet PO (10:40)
--- NOTE | 2020-11-25 11:59 | ED.RN ---
pt resedated to attempt second cardioversion after amiodarone was given. pt agrees to plan of care.
--- NOTE | 2020-11-25 13:11 | PCM.HP.STD ---
HPI - General General Date of Admission: 11/25/20 Date of Service: 11/25/20 Chief Complaint: Palpitations HPI Narrative EDMOND ALFRED, is a 60 M who presented to the emergency department at [facility] on 11/25/2020 with a chief complaint of palpitations. The patient stated that started the morning of admission. He has a known history of atrial fibrillation with RVR but has been in sinus rhythm as far as he knows since December of last year. He was adamant that the palpitations started on the morning of admission and he felt fine before he went back to bed last evening. He sees Dr. Wills in [place] for cardiology and at baseline takes apixaban and does not miss his doses and is on metoprolol 25 mg twice daily. 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 In the emergency department he was cardioverted x2 without success. The case was then discussed with cardiology and he was bolused with 150 mg of amiodarone and then repeat cardioversion was attempted without success at that time either. Heart rates were as high as 140 in the emergency department. His heart rate did improve after Cardizem, digoxin, and the amiodarone bolus but again he remained in atrial fibrillation with faster rates and therefore was admitted to the emergency department. His vital signs are otherwise stable. His CBC is unremarkable other than some mild erythrocytosis with a hemoglobin of 16.9. His BMP was overall unremarkable with a serum creatinine of 1.16 which appears to be his baseline. He is on CellCept and tacrolimus at baseline. A troponin was obtained and was 8. His EKG shows A. fib with RVR but no ST-T wave changes consistent with acute ischemia. His chest x-ray was overall unremarkable. [facility] Medical History (Updated 11/25/20 @ 13:[address] Cindy Mckeon DO) Afib Polycystic kidney disease Home Medications apixaban [Eliquis] 5 mg PO BID 11/25/20 [History Last Taken 11/25/20 06:00] enalapril maleate 5 mg PO DAILY 11/25/20 [History Last Taken 11/25/20 06:00] famotidine 20 mg PO DAILY 11/25/20 [History Last Taken 11/24/20 22:00] magnesium oxide 400 mg PO BID 11/25/20 [History Last Taken 11/25/20 06:00] metoprolol succinate 25 mg PO DAILY 11/25/20 [History Last Taken 11/25/20 06:00] mycophenolate sodium 360 mg PO BID 11/25/20 [History Last Taken 11/25/20 06:00] tacrolimus 0.5 mg PO BID 11/25/20 [History Last Taken 11/25/20 06:00] Allergy/AdvReac Type Severity Reaction Status Date / Time Iqnbaeo-[id number]-[id number] Reductase Allergy NEEDS Verified 11/25/20 08:59 Inhibitor FOLLOW-UP Family History (Updated 11/25/20 @ 13:[address] Cindy Mckeon DO) Other Polycystic kidney disease Surgical History (Updated 11/25/20 @ 13:[address] Cindy Mckeon DO) Kidney transplant recipient Social History (Updated 11/25/20 @ 13:[address] Cindy Mckeon DO) Smoking Status: Never smoker alcohol intake: never substance use type: does not use ROS Constitutional Constitutional: Denies anorexia, change in weight, chills, fatigue, fever(s), malaise, night sweats, weakness or other Eyes Eyes: Denies blurry vision, change in eye color, change in vision, discharge from eye(s), double vision, erythema, eye pain, loss of vision or other ENT HEENT: Denies abnormal hearing, dysphagia, ear pain, epistaxis, headache(s), hearing loss, nasal congestion, nasal discharge, post nasal drip, sinus pressure, sore throat or other Cardiovascular Cardiovascular: Reports palpitations and rapid heart rate; Denies chest pain, claudication, dyspnea on exertion, edema, lightheadedness, orthopnea, paroxysmal nocturnal dyspnea, syncope or other Respiratory/Chest Respiratory/Chest: Reports dyspnea; Denies cough, excessive phlegm production, hemoptysis, productive cough, shortness of breath at rest, shortness of breath with exertion, wheezing or other Gastrointestinal Gastrointestinal: Denies abdominal pain, coffee ground emesis, constipation, diarrhea, dyspepsia, hematemesis, hematochezia, loose stools, melena, nausea, vomiting or other Genitourinary Genitourinary: Denies burning urination, difficulty urinating, dysuria, hematuria, nocturia, urinary frequency, urinary hesitancy, urinary incontinence, urinary urgency or other Musculoskeletal Musculoskeletal: Denies arthralgias, back pain, joint pain, joint stiffness, joint swelling, myalgias, neck pain or other Neurologic Neurologic: Denies abnormal gait, abnormal speech, confusion, disequilibrium, dizziness, focal weakness, headache(s), numbness, paresthesias, seizure-like activity, seizures, syncope, tingling, tremor(s) or other Psychiatric Psychiatric: Denies anxiety, depression, homicidal ideation, suicidal ideation or other Endocrine Endocrinology: Denies change in body appearance, cold intolerance, excessive sweating, heat intolerance, polydipsia, polyuria or other Hematologic/Lymphatic Hematologic/Lymphatic: Denies anemia, easy bleeding, easy bruising, lymphadenopathy or other Allergic/Immunologic Allergic/Immunologic: Denies rhinitis, hives, eczemia, asthma or other Vital Signs Vital Signs Vital Signs: 11/25/20 08:42 11/25/20 08:53 11/25/20 08:57 Temperature 96.4 F L Temperature Source Temporal Pulse Rate 58 L Pulse Rate [1 (Initial Baseline)] Pulse Rate [2] Pulse Rate [3] Pulse Rate [4] Pulse Rate [5] Respiratory Rate 19 H Respiratory Rate [1 (Initial Baseline)] Respiratory Rate [2] Respiratory Rate [3] Respiratory Rate [4] Respiratory Rate [5] Respiratory Effort Normal Non-Labored Blood Pressure 129/88 H Blood Pressure [1 (Initial Baseline)] Blood Pressure [2] Blood Pressure [4] Blood Pressure [5] Blood Pressure Mean 101 Pulse Ox 100 98 Oxygen Delivery Method Room Air Room Air Oxygen Delivery Method [1 (Initial Baseline)] Oxygen Delivery Method [2] Oxygen Delivery Method [3] Oxygen Delivery Method [4] Oxygen Flow Rate (L/min) Oxygen Flow Rate (L/min) [1 (Initial Baseline)] Oxygen Flow Rate (L/min) [2] Oxygen Flow Rate (L/min) [3] Oxygen Flow Rate (L/min) [4] 11/25/20 09:40 11/25/20 09:41 11/25/20 09:57 Temperature Temperature Source Pulse Rate 136 H 128 H Pulse Rate [1 (Initial Baseline)] 128 H Pulse Rate [2] 134 H Pulse Rate [3] 127 H Pulse Rate [4] Pulse Rate [5] Respiratory Rate 18 20 H Respiratory Rate [1 (Initial Baseline)] 20 H Respiratory Rate [2] 23 H Respiratory Rate [3] 15 Respiratory Rate [4] Respiratory Rate [5] Respiratory Effort Blood Pressure 118/105 H 118/105 H Blood Pressure [1 (Initial Baseline)] 106/88 H Blood Pressure [2] 106/88 H Blood Pressure [4] Blood Pressure [5] Blood Pressure Mean 109 Pulse Ox 96 96 Oxygen Delivery Method Nasal Cannula Oxygen Delivery Method [1 (Initial Baseline)] Nasal Cannula Oxygen Delivery Method [2] Nasal Cannula Oxygen Delivery Method [3] Nasal Cannula Oxygen Delivery Method [4] Oxygen Flow Rate (L/min) 2 Oxygen Flow Rate (L/min) [1 (Initial Baseline)] 2 Oxygen Flow Rate (L/min) [2] 5 Oxygen Flow Rate (L/min) [3] 6 Oxygen Flow Rate (L/min) [4] 11/25/20 10:07 11/25/20 10:12 11/25/20 10:17 Temperature Temperature Source Pulse Rate 142 H 136 H 131 H Pulse Rate [1 (Initial Baseline)] Pulse Rate [2] Pulse Rate [3] Pulse Rate [4] Pulse Rate [5] Respiratory Rate 18 20 H 20 H Respiratory Rate [1 (Initial Baseline)] Respiratory Rate [2] Respiratory Rate [3] Respiratory Rate [4] Respiratory Rate [5] Respiratory Effort Blood Pressure 89/70 L 77/61 L 89/62 L Blood Pressure [1 (Initial Baseline)] Blood Pressure [2] Blood Pressure [4] Blood Pressure [5] Blood Pressure Mean 76 Pulse Ox 95 98 98 Oxygen Delivery Method Nasal Cannula Nasal Cannula Nasal Cannula Oxygen Delivery Method [1 (Initial Baseline)] Oxygen Delivery Method [2] Oxygen Delivery Method [3] Oxygen Delivery Method [4] Oxygen Flow Rate (L/min) 6 6 6 Oxygen Flow Rate (L/min) [1 (Initial Baseline)] Oxygen Flow Rate (L/min) [2] Oxygen Flow Rate (L/min) [3] Oxygen Flow Rate (L/min) [4] 11/25/20 10:22 11/25/20 10:27 11/25/20 10:32 Temperature Temperature Source Pulse Rate 128 H 128 H 128 H Pulse Rate [1 (Initial Baseline)] Pulse Rate [2] Pulse Rate [3] Pulse Rate [4] Pulse Rate [5] Respiratory Rate 20 H 20 H 20 H Respiratory Rate [1 (Initial Baseline)] Respiratory Rate [2] Respiratory Rate [3] Respiratory Rate [4] Respiratory Rate [5] Respiratory Effort Blood Pressure 79/67 L 87/73 L 93/54 L Blood Pressure [1 (Initial Baseline)] Blood Pressure [2] Blood Pressure [4] Blood Pressure [5] Blood Pressure Mean Pulse Ox 97 97 95 Oxygen Delivery Method Nasal Cannula Nasal Cannula Room Air Oxygen Delivery Method [1 (Initial Baseline)] Oxygen Delivery Method [2] Oxygen Delivery Method [3] Oxygen Delivery Method [4] Oxygen Flow Rate (L/min) 2 2 Oxygen Flow Rate (L/min) [1 (Initial Baseline)] Oxygen Flow Rate (L/min) [2] Oxygen Flow Rate (L/min) [3] Oxygen Flow Rate (L/min) [4] 11/25/20 10:41 11/25/20 10:42 11/25/20 10:43 Temperature 97.1 F L 97.1 F L Temperature Source Temporal Temporal Pulse Rate 132 H 116 H 139 H Pulse Rate [1 (Initial Baseline)] Pulse Rate [2] Pulse Rate [3] Pulse Rate [4] Pulse Rate [5] Respiratory Rate 18 20 H 18 Respiratory Rate [1 (Initial Baseline)] Respiratory Rate [2] Respiratory Rate [3] Respiratory Rate [4] Respiratory Rate [5] Respiratory Effort Blood Pressure 100/76 100/76 100/76 Blood Pressure [1 (Initial Baseline)] Blood Pressure [2] Blood Pressure [4] Blood Pressure [5] Blood Pressure Mean 84 84 84 Pulse Ox 96 94 95 Oxygen Delivery Method Room Air Room Air Room Air Oxygen Delivery Method [1 (Initial Baseline)] Oxygen Delivery Method [2] Oxygen Delivery Method [3] Oxygen Delivery Method [4] Oxygen Flow Rate (L/min) Oxygen Flow Rate (L/min) [1 (Initial Baseline)] Oxygen Flow Rate (L/min) [2] Oxygen Flow Rate (L/min) [3] Oxygen Flow Rate (L/min) [4] 11/25/20 11:15 11/25/20 11:19 11/25/20 11:26 Temperature 97.3 F L 97.3 F L Temperature Source Temporal Temporal Pulse Rate 129 H 123 H 84 Pulse Rate [1 (Initial Baseline)] Pulse Rate [2] Pulse Rate [3] Pulse Rate [4] Pulse Rate [5] Respiratory Rate 20 H 18 15 Respiratory Rate [1 (Initial Baseline)] Respiratory Rate [2] Respiratory Rate [3] Respiratory Rate [4] Respiratory Rate [5] Respiratory Effort Blood Pressure 107/77 110/92 H 98/86 H Blood Pressure [1 (Initial Baseline)] Blood Pressure [2] Blood Pressure [4] Blood Pressure [5] Blood Pressure Mean 87 98 90 Pulse Ox 95 97 96 Oxygen Delivery Method Room Air Room Air Room Air Oxygen Delivery Method [1 (Initial Baseline)] Oxygen Delivery Method [2] Oxygen Delivery Method [3] Oxygen Delivery Method [4] Oxygen Flow Rate (L/min) Oxygen Flow Rate (L/min) [1 (Initial Baseline)] Oxygen Flow Rate (L/min) [2] Oxygen Flow Rate (L/min) [3] Oxygen Flow Rate (L/min) [4] 11/25/20 11:41 11/25/20 11:44 11/25/20 11:49 Temperature Temperature Source Pulse Rate 92 95 Pulse Rate [1 (Initial Baseline)] Pulse Rate [2] Pulse Rate [3] Pulse Rate [4] 85 Pulse Rate [5] 94 Respiratory Rate 20 H 20 H Respiratory Rate [1 (Initial Baseline)] Respiratory Rate [2] Respiratory Rate [3] Respiratory Rate [4] 20 H Respiratory Rate [5] 16 Respiratory Effort Blood Pressure 111/80 101/69 Blood Pressure [1 (Initial Baseline)] Blood Pressure [2] Blood Pressure [4] 98/86 H Blood Pressure [5] 111/80 Blood Pressure Mean Pulse Ox 99 96 Oxygen Delivery Method Nasal Cannula Room Air Oxygen Delivery Method [1 (Initial Baseline)] Oxygen Delivery Method [2] Oxygen Delivery Method [3] Oxygen Delivery Method [4] Nasal Cannula Oxygen Flow Rate (L/min) 2 Oxygen Flow Rate (L/min) [1 (Initial Baseline)] Oxygen Flow Rate (L/min) [2] Oxygen Flow Rate (L/min) [3] Oxygen Flow Rate (L/min) [4] 2 11/25/20 11:53 11/25/20 11:54 11/25/20 11:56 Temperature 97.2 F L Temperature Source Temporal Pulse Rate 92 96 106 H Pulse Rate [1 (Initial Baseline)] Pulse Rate [2] Pulse Rate [3] Pulse Rate [4] Pulse Rate [5] Respiratory Rate 20 H 20 H 20 H Respiratory Rate [1 (Initial Baseline)] Respiratory Rate [2] Respiratory Rate [3] Respiratory Rate [4] Respiratory Rate [5] Respiratory Effort Blood Pressure 101/69 96/66 96/66 Blood Pressure [1 (Initial Baseline)] Blood Pressure [2] Blood Pressure [4] Blood Pressure [5] Blood Pressure Mean 79 Pulse Ox 96 96 96 Oxygen Delivery Method Room Air Room Air Room Air Oxygen Delivery Method [1 (Initial Baseline)] Oxygen Delivery Method [2] Oxygen Delivery Method [3] Oxygen Delivery Method [4] Oxygen Flow Rate (L/min) Oxygen Flow Rate (L/min) [1 (Initial Baseline)] Oxygen Flow Rate (L/min) [2] Oxygen Flow Rate (L/min) [3] Oxygen Flow Rate (L/min) [4] 11/25/20 12:03 11/25/20 12:05 Temperature Temperature Source Pulse Rate 103 H Pulse Rate [1 (Initial Baseline)] Pulse Rate [2] Pulse Rate [3] Pulse Rate [4] Pulse Rate [5] Respiratory Rate 19 H Respiratory Rate [1 (Initial Baseline)] Respiratory Rate [2] Respiratory Rate [3] Respiratory Rate [4] Respiratory Rate [5] Respiratory Effort Blood Pressure 89/73 L 98/66 Blood Pressure [1 (Initial Baseline)] Blood Pressure [2] Blood Pressure [4] Blood Pressure [5] Blood Pressure Mean 78 76 Pulse Ox 95 Oxygen Delivery Method Room Air Oxygen Delivery Method [1 (Initial Baseline)] Oxygen Delivery Method [2] Oxygen Delivery Method [3] Oxygen Delivery Method [4] Oxygen Flow Rate (L/min) Oxygen Flow Rate (L/min) [1 (Initial Baseline)] Oxygen Flow Rate (L/min) [2] Oxygen Flow Rate (L/min) [3] Oxygen Flow Rate (L/min) [4] Weight Weight: 107.2 kg Body Mass Index (BMI) 34.9 Physical Exam Const alert, oriented x3 and no apparent distress Constitutional Narrative: Obese white male sitting up in bed, appears comfortable, nontoxic General Appearance: cooperative HEENT normocephalic, head/scalp atraumatic, hearing grossly normal bilaterally and moist oral mucous membranes Eyes PERRL, EOMs intact bilaterally and conjunctivae normal Neck no lymphadenopathy, supple, no JVD and no carotid bruits Neck Narrative: Trachea midline, no thyroid enlargement Resp normal respiratory effort, no retractions, no use of accessory muscles and clear to auscultation bilaterally Auscultation: Negative for crackles, rales, rhonchi or wheezes Cardio S1 normal heart sound, S2 normal heart sound, no murmurs, no rub, no gallops, no clicks and no JVD Cardio Narrative: Irregular irregular rhythm with a rapid rate GI normal to inspection, nondistended, normoactive bowel sounds, soft to palpation, non-tender and non-distended Extremity normal to inspection and no clubbing, cyanosis or edema Peripheral Pulses: Yes pulses 2+ throughout Skin no rashes or lesions noted, no wounds, skin turgor normal, no jaundice, no petechiae and no mottling Neuro oriented x3, CN's II-XII intact bilaterally, moves all extremities and no focal motor deficits Sensorium / Orientation: awake and alert Speech: speech normal Motor Exam: strength 5/5 throughout Psych affect normal Results Lab / Micro Data Attestation: I reviewed the patient's lab results. Result Diagrams: 11/25/20 08:50 11/25/20 08:50 Labs: Laboratory Results - last 24 hr 11/25/20 08:50: WBC 6.6, RBC 5.80, Hgb 16.9 H, Hct 51.9, MCV 89.5, MCH 29.1, MCHC 32.6, RDW Std Deviation 39.8, RDW Coeff of Te 12.1, Plt Count 241, MPV 9.5, Immature Gran % (Auto) 0.600, Neut % (Auto) 67.3, Lymph % (Auto) 19.8, Bibb % (Auto) 11.0 H, Eos % (Auto) 0.8, Baso % (Auto) 0.5, Absolute Neuts (auto) 4.4, Absolute Lymphs (auto) 1.30, Nucleated RBC % 0 11/25/20 08:50: Sodium 142, Potassium 4.4, Chloride 109 H, Carbon Dioxide 27.0, Anion Gap 6, BUN 14, Creatinine 1.16, Estim Creat Clear Calc 67.72, Est GFR (MDRD) Af Amer 82, Est GFR (MDRD) Non-Af 68, BUN/Creatinine Ratio 12.1, Glucose 130 H, Calcium 9.9, Troponin I High Sens 8 Radiology Impression Chest X-Ray 11/25/20 09:05 IMPRESSION: Lungs are clear. Electronically Signed: Linwood Alvarenga MD at 9:23 EDT , Service support , Assessment & Plan Assessment/Plan (1) Paroxysmal atrial fibrillation with RVR: PLAN: Paroxysmal A. fib with RVR -Last known episode of A. fib was December 2019 -Patient is on apixaban 5 mg p.o. twice daily and takes this with no missed doses -Will continue -Failed cardioversion x3 in the emergency department with the third being after an amiodarone bolus -Check TSH -Check echocardiogram -Discussed case with cardiology and will increase metoprolol from 25 mg daily to 50 mg twice daily -Outpatient unit control worker is Dr. Markus Wills -Cardiology consultation Polycystic kidney disease -Has been HD dependent in the past -Status post transplant x2 -Continue CellCept and tacrolimus -Tacrolimus level drawn yesterday -Monitor -Follows with nephrology in [place], [place] DVT prophylaxis -Full anticoagulation with Eliquis CODE STATUS -Full code Charges/Coding Visit Charges Inpatient E&M: 39943 Init Hosp L2
--- NOTE | 2020-11-25 16:55 | PCM.CONS.C ---
Assessment & Plan Assessment/Plan (1) Paroxysmal atrial fibrillation with RVR: PLAN: He does appear to have atrial fibrillation with a rapid ventricular response rate. He has been anticoagulated and the plan will be to continue his Eliquis at the same dose. I would recommend that we increase his beta-felisa to metoprolol titrate 50 mg twice a day. Depending on what his rate control is in the morning we may be able to discharge him and have him follow-up with his outpatient pharmacy technician inpatient. Have discussed the above with him the risk benefits alternatives he understands and agrees to proceed. I do not think there is any reason to DC cardiovert him again. Thank you for allowing me to participate in the care of your patient. Please don't hesitate to call if any issues arise. HPI Consult Data Date of Consult: 11/25/20 HPI Narrative HPI Narrative: EDMOND ALFRED, is a 60 M who presents to the emergency department at [facility] on 11/25/2020 with a chief complaint of palpitations. The patient stated that started the morning of admission. He has a known history of atrial fibrillation with RVR but has been in sinus rhythm as far as he knows since December of last year. He was adamant that the palpitations started on the morning of admission and he felt fine before he went back to bed last evening. He sees Dr. Wills in [place] for cardiology and at baseline takes apixaban and does not miss his doses and is on metoprolol 25 mg twice daily. He also has a history of renal transplant x2 for polycystic kidney disease and follows in [place] with a obiee lead developer there. In the emergency department he was cardioverted x2 without success. The case was then discussed with cardiology and he was bolused with 150 mg of amiodarone and then repeat cardioversion was attempted without success at that time either. Heart rates were as high as 140 in the emergency department. His heart rate did improve after Cardizem, digoxin, and the amiodarone bolus but again he remained in atrial fibrillation with faster rates and therefore was admitted to the emergency department. Since admission his been doing quite well he was started on a beta-felisa and his rates are improving. He did have an echocardiogram performed within the last month which demonstrated an ejection fraction of 60 to 65% with no significant wall motion abnormalities present. [facility] Medical History Afib Polycystic kidney disease Home Medications apixaban [Eliquis] 5 mg PO BID 11/25/20 [History Last Taken 11/25/20 06:00] enalapril maleate 5 mg PO DAILY 11/25/20 [History Last Taken 11/25/20 06:00] famotidine 20 mg PO DAILY 11/25/20 [History Last Taken 11/24/20 22:00] magnesium oxide 400 mg PO BID 11/25/20 [History Last Taken 11/25/20 06:00] metoprolol succinate 25 mg PO DAILY 11/25/20 [History Last Taken 11/25/20 06:00] mycophenolate sodium 360 mg PO BID 11/25/20 [History Last Taken 11/25/20 06:00] tacrolimus 0.5 mg PO BID 11/25/20 [History Last Taken 11/25/20 06:00] Allergy/AdvReac Type Severity Reaction Status Date / Time Cdikynm-Swh-Cpa Reductase Allergy NEEDS Verified 11/25/20 08:59 Inhibitor FOLLOW-UP Family History Other Polycystic kidney disease Surgical History Kidney transplant recipient Social History Smoking Status: Never smoker alcohol intake: never substance use type: does not use ROS Constitutional Constitutional: Denies fever(s) or weight loss Eyes Eyes: Reports systems reviewed and no addt'l complaints, except as documented ENT HEENT: Reports systems reviewed and no addt'l complaints, except as documented Cardiovascular Cardiovascular: Reports palpitations; Denies chest pain at rest, chest pain with activity, dyspnea at rest, dyspnea on exertion, edema or paroxysmal nocturnal dyspnea Respiratory/Chest Respiratory/Chest: Denies dyspnea on exertion, productive cough, shortness of breath at rest or shortness of breath with exertion Gastrointestinal Gastrointestinal: Denies change in bowel habits, nausea, vomiting or weight changes Genitourinary Genitourinary: Denies difficulty urinating Musculoskeletal Musculoskeletal: Denies joint stiffness or muscle weakness Integumentary Integumentary: Denies lesions Neurologic Neurologic: Denies dizziness or syncope Psychiatric Psychiatric: Denies anxiety Endocrine Endocrinology: Denies excessive sweating or fatigue Hematologic/Lymphatic Hematologic/Lymphatic: Denies anemia Allergic/Immunologic Allergic/Immunologic: Denies seasonal rhinorrhea Physical Exam Const alert, oriented x3 and no apparent distress General Appearance: cooperative HEENT hearing grossly normal bilaterally Head and Scalp: atraumatic Eyes EOMs intact bilaterally Neck General: normal visual inspection Chest inspection of chest normal and palpation of chest normal Resp normal respiratory effort Auscultation: clear to auscultation bilaterally Cardio S1 normal heart sound and S2 normal heart sound Jugular Venous Distention: JVD Rhythm: abnormal rhythm and other Other Details: Irregular rate and rhythm GI normal to inspection, nondistended, normoactive bowel sounds Extremity normal capillary refill and no pedal edema Peripheral Pulses: Yes pulses 2+ throughout and femoral pulses present Skin no rashes or lesions noted Neuro oriented x3 and CN's II-XII intact bilaterally Psych Appearance: grossly normal and appropriate Risk Stratification Risk Stratification Applicable: No Objective Data Vital Signs: Vital Signs Temp Pulse Resp BP Pulse Ox 97.7 F L 85 18 106/88 H 95 11/25/20 12:45 11/25/20 12:46 11/25/20 12:45 11/25/20 12:45 11/25/20 16:17 Oxygen Flow Rate (L/min) [4] 2 Oxygen Flow Rate (L/min) [3] 6 Oxygen Flow Rate (L/min) [2] 5 Oxygen Flow Rate (L/min) [1 ( 2 Initial Baseline)] Oxygen Flow Rate (L/min) 2 Oxygen Delivery Method [4] Nasal Cannula Oxygen Delivery Method [3] Nasal Cannula Oxygen Delivery Method [2] Nasal Cannula Oxygen Delivery Method [1 ( Nasal Cannula Initial Baseline)] Oxygen Delivery Method Room Air Weight: 236 lb 5.369 oz Body Mass Index (BMI) 34.9 Intake & Output: Intake and Output for Last 24 Hours 11/23/20 11/24/20 11/25/20 23:59 23:59 23:59 Intake Total 1103 / 1103 Balance 1103 / 1103 Lab / Micro Data Result Diagrams: 11/25/20 08:50 11/25/20 08:50 Labs: Laboratory Results - last 24 hr 11/25/20 08:50: WBC 6.6, RBC 5.80, Hgb 16.9 H, Hct 51.9, MCV 89.5, MCH 29.1, MCHC 32.6, RDW Std Deviation 39.8, RDW Coeff of Te 12.1, Plt Count 241, MPV 9.5, Immature Gran % (Auto) 0.600, Neut % (Auto) 67.3, Lymph % (Auto) 19.8, [place] % (Auto) 11.0 H, Eos % (Auto) 0.8, Baso % (Auto) 0.5, Absolute Neuts (auto) 4.4, Absolute Lymphs (auto) 1.30, Nucleated RBC % 0 11/25/20 08:50: Sodium 142, Potassium 4.4, Chloride 109 H, Carbon Dioxide 27.0, Anion Gap 6, BUN 14, Creatinine 1.16, Estim Creat Clear Calc 67.72, Est GFR (MDRD) Af Amer 82, Est GFR (MDRD) Non-Af 68, BUN/Creatinine Ratio 12.1, Glucose 130 H, Calcium 9.9, Troponin I High Sens 8 Cardiology Labs/Tests 11/25/20 08:50: WBC 6.6, RBC 5.80, Hgb 16.9 H, Hct 51.9, MCV 89.5, MCH 29.1, MCHC 32.6, Plt Count 241, MPV 9.5, Immature Gran % (Auto) 0.600, Neut % (Auto) 67.3, Lymph % (Auto) 19.8, [place] % (Auto) 11.0 H, Eos % (Auto) 0.8, Baso % (Auto) 0.5, Absolute Neuts (auto) 4.4, Nucleated RBC % 0 11/25/20 08:50: Sodium 142, Potassium 4.4, Chloride 109 H, Carbon Dioxide 27.0, Anion Gap 6, BUN 14, Creatinine 1.16, Est GFR (MDRD) Af Amer 82, Est GFR (MDRD) Non-Af 68, BUN/Creatinine Ratio 12.1, Glucose 130 H, Calcium 9.9 Rhythm: EKG: Atrial fibrillation with a rapid ventricular response rate ECHO: Stress Test: Cardiac Cath: PCI: CT Surgery: Holter monitor: EPS: PPM: CXR: Chest CT Scan: Radiography Diagnostic Testing: Radiology Impression Chest X-Ray 11/25/20 09:05 IMPRESSION: Lungs are clear. Electronically Signed: Linwood Alvarenga MD at 9:23 EDT , Service support ,
[2020-11-25] MEDS: APIXABAN 5 MG TABLET PO (20:35)
[2020-11-25] MEDS: Tacrolimus 0.5 MG Capsule PO (20:35)
[2020-11-25] MEDS: Mycophenolate Mofetil 250 MG Capsule 500 MG PO (20:35)
[2020-11-25] MEDS: Metoprolol Tartrate 50 MG Tablet PO (20:35)
[2020-11-25] MEDS: Magnesium Chloride 64 MG Delay Rel.Tablet 128 MG PO (20:35)
[2020-11-26] VITALS (7 sets, daily range): BP systolic 108–124; BP diastolic 67–75; PULSE 54–73; RESP 14–18; TEMP 36.6–36.7; O2SAT 98
[2020-11-26 06:09] LABS: Absolute Lymphocyte Count 0.81 X10^3/uL (0.83-4.51); Absolute Neutrophil Count 3.8 X10^3/uL (2.0-7.7); Basophil# 0.04 X10^3/uL; Basophil% 0.7 % (0-1); Eosinophil# 0.11 X10^3/uL; Hematocrit 47.3 % (40-54); Hemoglobin 15.5 g/dL (13.0-16.5); Lymphocyte # 0.81 X10^3/ul (0.83-4.51); Lymphocyte % 14.8 % (19-41); Mean Corp Hgb Conc 32.8 g/dL (32-36); Mean Corpuscular Hgb 29.2 pg (27.0-32.0); Mean Corpuscular Volume 89.2 fL (80-94); Mean Platelet Vol. 9.8 fl (6.2-12.0); Monocyte# 0.71 X10^3/uL; Monocyte% 12.9 % (0-10); NRBC Flagged by Analyzer 0 % (0-5); Neutrophil # 3.79 X10^3/uL (2.7-7.7); Neutrophil % 69.1 % (47-70); Platelet Count 196 K/mm3 (150-450); RBC Distribution Width CV 12.1 % (11.6-14.6); RBC Distribution Width SD 39.3 fl (35.1-43.9); White Blood Count 5.5 K/mm3 (4.4-11.0)
[2020-11-26 07:02] LABS: ALB/GLOB Ratio 0.9 RATIO (0.9-2.4); AST(SGOT) 15 U/L (15-37); Alanine Aminotransfer ALT/SGPT 22 U/L (16-61); Alkaline Phosphatase 83 U/L (45-117); Anion Gap 7 (5-15); BUN 15 mg/dL (7-18); Calcium,Total 9.1 mg/dL (8.5-10.1); Chloride 110 mmol/L (98-107); Creatinine, Serum 1.07 mg/dL (0.70-1.30); EST Glomerular Filtration Rate 75 mL/min (>60); Est Glom Filt Rate - Afr Amer 91 mL/min (>60); Estimated Creatinine Clearance 73.42 ml/min; Globulin 3.3 g/dL (2.2-4.2); Glucose 99 mg/dL (74-106); Magnesium 1.5 mg/dL (1.6-2.6); Phosphorus 2.5 mg/dL (2.5-4.9); Potassium 4.2 mmol/L (3.5-5.1); Protein, Total 6.3 g/dL (6.4-8.2); Sodium Level 141 mmol/L (136-145)
--- NOTE | 2020-11-26 08:08 | PCM.PN.CARD ---
Subjective Subjective Patient seen in the record. Appears to be doing well. Back in sinus rhythm. Objective Data Vital Signs: Vital Signs Temp Pulse Resp BP Pulse Ox 97.9 F 54 L 14 108/73 98 11/26/20 03:15 11/26/20 07:00 11/26/20 03:15 11/26/20 03:15 11/26/20 03:15 Oxygen Flow Rate (L/min) [4] 2 Oxygen Flow Rate (L/min) [3] 6 Oxygen Flow Rate (L/min) [2] 5 Oxygen Flow Rate (L/min) [1 ( 2 Initial Baseline)] Oxygen Flow Rate (L/min) 2 Oxygen Delivery Method [4] Nasal Cannula Oxygen Delivery Method [3] Nasal Cannula Oxygen Delivery Method [2] Nasal Cannula Oxygen Delivery Method [1 ( Nasal Cannula Initial Baseline)] Oxygen Delivery Method Room Air Weight: 236 lb 5.369 oz Body Mass Index (BMI) 34.9 Intake & Output: Intake and Output for Last 24 Hours 11/24/20 11/25/20 11/26/20 23:59 23:59 23:59 Intake Total 1463 / 1463 Balance 1463 / 1463 Lab / Micro Data Result Diagrams: 11/26/20 05:05 11/26/20 05:05 Labs: Laboratory Results - last 24 hr 11/25/20 08:50: WBC 6.6, RBC 5.80, Hgb 16.9 H, Hct 51.9, MCV 89.5, MCH 29.1, MCHC 32.6, RDW Std Deviation 39.8, RDW Coeff of Te 12.1, Plt Count 241, MPV 9.5, Immature Gran % (Auto) 0.600, Neut % (Auto) 67.3, Lymph % (Auto) 19.8, [place] % (Auto) 11.0 H, Eos % (Auto) 0.8, Baso % (Auto) 0.5, Absolute Neuts (auto) 4.4, Absolute Lymphs (auto) 1.30, Nucleated RBC % 0 11/25/20 08:50: Sodium 142, Potassium 4.4, Chloride 109 H, Carbon Dioxide 27.0, Anion Gap 6, BUN 14, Creatinine 1.16, Estim Creat Clear Calc 67.72, Est GFR (MDRD) Af Amer 82, Est GFR (MDRD) Non-Af 68, BUN/Creatinine Ratio 12.1, Glucose 130 H, Calcium 9.9, Troponin I High Sens 8 11/26/20 05:05: WBC 5.5, RBC 5.30, Hgb 15.5, Hct 47.3, MCV 89.2, MCH 29.2, MCHC 32.8, RDW Std Deviation 39.3, RDW Coeff of Te 12.1, Plt Count 196, MPV 9.8, Immature Gran % (Auto) 0.500, Neut % (Auto) 69.1, Lymph % (Auto) 14.8 L, [place] % (Auto) 12.9 H, Eos % (Auto) 2.0, Baso % (Auto) 0.7, Absolute Neuts (auto) 3.8, Absolute Lymphs (auto) 0.81 L, Nucleated RBC % 0 11/26/20 05:05: Sodium 141, Potassium 4.2, Chloride 110 H, Carbon Dioxide 24.0, Anion Gap 7, BUN 15, Creatinine 1.07, Estim Creat Clear Calc 73.42, Est GFR (MDRD) Af Amer 91, Est GFR (MDRD) Non-Af 75, BUN/Creatinine Ratio 14.0, Glucose 99, Calcium 9.1, Magnesium 1.5 L, Total Bilirubin 0.60, AST 15, ALT 22, Alkaline Phosphatase 83, Total Protein 6.3 L, Albumin 3.0 L, Globulin 3.3, Albumin/Globulin Ratio 0.9, TSH 1.00 11/26/20 05:05: Phosphorus 2.5 Cardiology Labs/Tests 11/25/20 08:50: WBC 6.6, RBC 5.80, Hgb 16.9 H, Hct 51.9, MCV 89.5, MCH 29.1, MCHC 32.6, Plt Count 241, MPV 9.5, Immature Gran % (Auto) 0.600, Neut % (Auto) 67.3, Lymph % (Auto) 19.8, [place] % (Auto) 11.0 H, Eos % (Auto) 0.8, Baso % (Auto) 0.5, Absolute Neuts (auto) 4.4, Nucleated RBC % 0 11/25/20 08:50: Sodium 142, Potassium 4.4, Chloride 109 H, Carbon Dioxide 27.0, Anion Gap 6, BUN 14, Creatinine 1.16, Est GFR (MDRD) Af Amer 82, Est GFR (MDRD) Non-Af 68, BUN/Creatinine Ratio 12.1, Glucose 130 H, Calcium 9.9 11/26/20 05:05: WBC 5.5, RBC 5.30, Hgb 15.5, Hct 47.3, MCV 89.2, MCH 29.2, MCHC 32.8, Plt Count 196, MPV 9.8, Immature Gran % (Auto) 0.500, Neut % (Auto) 69.1, Lymph % (Auto) 14.8 L, [place] % (Auto) 12.9 H, Eos % (Auto) 2.0, Baso % (Auto) 0.7, Absolute Neuts (auto) 3.8, Nucleated RBC % 0 11/26/20 05:05: Sodium 141, Potassium 4.2, Chloride 110 H, Carbon Dioxide 24.0, Anion Gap 7, BUN 15, Creatinine 1.07, Est GFR (MDRD) Af Amer 91, Est GFR (MDRD) Non-Af 75, BUN/Creatinine Ratio 14.0, Glucose 99, Calcium 9.1, Magnesium 1.5 L, Total Bilirubin 0.60 11/26/20 05:05: Phosphorus 2.5 Rhythm: EKG: ECHO: Stress Test: Cardiac Cath: PCI: CT Surgery: Holter monitor: EPS: PPM: CXR: Chest CT Scan: Radiography Diagnostic Testing: Radiology Impression Chest X-Ray 11/25/20 09:05 IMPRESSION: Lungs are clear. Electronically Signed: Linwood Alvarenga MD at 9:23 EDT , Service support , Assessment & Plan Assessment/Plan (1) Paroxysmal atrial fibrillation with RVR: PLAN: He does appear to have atrial fibrillation with a rapid ventricular response rate. He has been anticoagulated and the plan will be to continue his Eliquis at the same dose. He has converted to sinus rhythm and the plan will be to continue him on the current dose of the beta-felisa. He can be discharged for outpatient follow-up with his primary emergency room physician assistant. Thank you for allowing me to participate in the care of your patient. Please don't hesitate to call if any issues arise.
[2020-11-26] MEDS: Tacrolimus 0.5 MG Capsule PO (08:49)
[2020-11-26] MEDS: Famotidine 20 MG Tablet PO (08:49)
[2020-11-26] MEDS: Lisinopril 5 MG Tablet PO (08:49)
[2020-11-26] MEDS: Magnesium Chloride 64 MG Delay Rel.Tablet 128 MG PO (08:49)
[2020-11-26] MEDS: APIXABAN 5 MG TABLET PO (08:50)
[2020-11-26] MEDS: Mycophenolate Mofetil 250 MG Capsule 500 MG PO (08:50)
[2020-11-26] MEDS: Metoprolol Tartrate 50 MG Tablet PO (08:50)
--- NOTE | 2020-11-26 10:13 | PCM.DC.SUM ---
Providers Date of Admission: 11/25/20 Primary Care Physician: Dr. Ramon Carrillo MD Consultations 11/25/20 13:19 Consult: Cardiology Routine Consulting Provider: Peter German Reason for Consult: Afib with RVR EMERGENT Consult: Yes MD Notified: Yes Date Notified: 11/25/20 Time Notified: 13:36 Method of Notification: Text Reason For Visit: AFIB Diagnosis Discharge Diagnosis (1) Paroxysmal atrial fibrillation with RVR: Status: Acute Code(s): I48.0 - Paroxysmal atrial fibrillation Medications at Discharge Home Medications Eliquis 5 mg PO BID 11/25/20 enalapril maleate 5 mg PO DAILY 11/25/20 famotidine 20 mg PO DAILY 11/25/20 magnesium oxide 400 mg PO BID 11/25/20 mycophenolate sodium 360 mg PO BID 11/25/20 tacrolimus 0.5 mg PO BID 11/25/20 metoprolol tartrate 50 mg PO BID #60 tab 11/26/20 Hospital Course Operations None Procedures Cardioversion (x 3 Unsuccessful) Summary of Care Provided Minutes Spent on Discharge: 22 Hospital Course: EDMOND ALFRED, is a 60 M who presented to the emergency department at [facility] on 11/25/2020 with a chief complaint of palpitations. The patient stated that started the morning of admission. He has a known history of atrial fibrillation with RVR but had been in sinus rhythm as far as he knows since December of last year. He was adamant that the palpitations started on the morning of admission and he felt fine before he went back to bed last evening. He sees Dr. Wills in [place] for cardiology and at baseline takes apixaban and had not missed his doses and is on metoprolol 25 mg daily. He also has a history of renal transplant x2 for polycystic kidney disease and follows in [place] with a manager managed backup services there. In the emergency department he was cardioverted x2 without success. The case was then discussed with cardiology and he was bolused with 150 mg of amiodarone and then repeat cardioversion was attempted without success at that time either. Heart rates were as high as 140 in the emergency department. His heart rate did improve after Cardizem, digoxin, and the amiodarone bolus but again he remained in atrial fibrillation with faster rates and therefore was admitted to the PCU His vital signs were otherwise stable. His CBC is unremarkable other than some mild erythrocytosis with a hemoglobin of 16.9. His BMP was overall unremarkable with a serum creatinine of 1.16 which appears to be his baseline. He is on CellCept and tacrolimus at baseline. A troponin was obtained and was 8. His EKG shows A. fib with RVR but no ST-T wave changes consistent with acute ischemia. His chest x-ray was overall unremarkable. On admission his metoprolol was changed from 25 mg daily to 50 mg twice daily. Overnight he converted back into normal sinus rhythm. He had a recent echocardiogram done by his primary commercial sales manager within the last month so he refused a repeat echo. Upon further discussion with commercial sales manager on the a.m. of 11/26/2020 he felt he was okay for discharge and follow-up with his primary commercial sales manager Dr. Wills in [place]. He did recommend however that be discharged on the increased dose of metoprolol for which a prescription was sent to his pharmacy. He was discharged in stable condition. Discharge diagnoses: A. fib with RVR-resolved PAF Polycystic kidney disease status post renal transplant x2 GERD Physical Exam Const alert, oriented x3 and no apparent distress Constitutional Narrative: Obese white male sitting up in bed, appears comfortable, nontoxic General Appearance: cooperative, comfortable, well kempt and well developed Exam Limitations: no limitations HEENT normocephalic, head/scalp atraumatic, hearing grossly normal bilaterally and moist oral mucous membranes Resp normal respiratory effort, no retractions, no use of accessory muscles and clear to auscultation bilaterally Auscultation: Negative for crackles, rales, rhonchi or wheezes Cardio regular rate, regular rhythm, S1 normal heart sound, S2 normal heart sound, no murmurs, no rub, no gallops, no clicks and no JVD GI normal to inspection, nondistended, normoactive bowel sounds, soft to palpation, non-tender and non-distended Extremity no clubbing, cyanosis or edema Skin no petechiae and no mottling Neuro oriented x3, CN's II-XII intact bilaterally, moves all extremities and no focal motor deficits Sensorium / Orientation: awake and alert Speech: speech normal Motor Exam: strength 5/5 throughout Weight / BMI Weight Weight: 107.2 kg Body Mass Index (BMI) 34.9 ABG / Lab / Microbiology Data Result Diagrams: 11/26/20 05:05 11/26/20 05:05 Laboratory: Laboratory Results - last 24 hr 11/26/20 05:05: WBC 5.5, RBC 5.30, Hgb 15.5, Hct 47.3, MCV 89.2, MCH 29.2, MCHC 32.8, RDW Std Deviation 39.3, RDW Coeff of Te 12.1, Plt Count 196, MPV 9.8, Immature Gran % (Auto) 0.500, Neut % (Auto) 69.1, Lymph % (Auto) 14.8 L, [place] % (Auto) 12.9 H, Eos % (Auto) 2.0, Baso % (Auto) 0.7, Absolute Neuts (auto) 3.8, Absolute Lymphs (auto) 0.81 L, Nucleated RBC % 0 11/26/20 05:05: Sodium 141, Potassium 4.2, Chloride 110 H, Carbon Dioxide 24.0, Anion Gap 7, BUN 15, Creatinine 1.07, Estim Creat Clear Calc 73.42, Est GFR (MDRD) Af Amer 91, Est GFR (MDRD) Non-Af 75, BUN/Creatinine Ratio 14.0, Glucose 99, Calcium 9.1, Magnesium 1.5 L, Total Bilirubin 0.60, AST 15, ALT 22, Alkaline Phosphatase 83, Total Protein 6.3 L, Albumin 3.0 L, Globulin 3.3, Albumin/Globulin Ratio 0.9, TSH 1.00 11/26/20 05:05: Phosphorus 2.5 D/C Instructions Discharge Diet: Low fat / Low cholesterol Meaningful Use Info Meaningful Use Diagnoses (Choose all that apply): None applicable Discharge Plan Admission Admit Date/Time: 11/25/20 11:06 Primary Reason for Your Visit: A-fib with RVR Attending Provider: Cindy Mckeon Primary Care Provider: Ramon Carrillo Consulting Providers: Peter German Discharge Orders/Prescriptions Prescriptions: New metoprolol tartrate 50 mg Tablet 50 mg PO BID Qty: 60 RF: 0 Continued famotidine 20 mg Tablet 20 mg PO DAILY RF: 0 magnesium oxide 400 mg magnesium Capsule 400 mg PO BID RF: 0 Eliquis 5 mg tablet 5 mg PO BID RF: 0 enalapril maleate 5 mg tablet 5 mg PO DAILY RF: 0 tacrolimus 0.5 mg capsule 0.5 mg PO BID RF: 0 mycophenolate sodium 360 mg tablet,delayed release (DR/EC) 360 mg PO BID RF: 0 Discontinued metoprolol succinate 25 mg Capsule,Sprinkle,Er 24hr 25 mg PO DAILY RF: 0 Referrals / Follow Up: Ramon Carrillo MD [Primary Care Provider] - See Referral Note (as needed) Markus Wills MD [NON-STAFF] - See Referral Note (as scheduled) Disposition Disposition (needs filled in before D/C Order can be placed): Home, Self Care Charges/Coding Visit Charges Inpatient E&M: 81441 Disch Hosp
== END 2020-11-26 10:17 | disposition home or self-care (01) ==
LOC: ED 10:19 → PCU 14:32
PROVIDERS: Admitting Provider Internal Medicine; Emergency Provider Emergency Medicine; PCP Family Medicine; Visit Provider Internal Medicine
DX: I48.0 Paroxysmal atrial fibrillation (principal); Q61.3 Polycystic kidney, unspecified; Z79.01 Long term (current) use of anticoagulants; Z79.899 Other long term (current) drug therapy; Z94.0 Kidney transplant status
CPT/HCPCS: 36415; 71045; 80048; 80053; 83735; 84100; 84443; 84484; 85025; 92960; 93005; 96360; 96361; 99218; 99251; 99285; J7030; J7050; A4216; G0378; G0463

== ENCOUNTER 2020-12-21 16:23 | Outpatient (RCR) | payer MEDICARE, BC, SELFPAY ==
[2020-12-21 18:06] LABS: Hematocrit 48.6 % (40-54); Hemoglobin 16.1 g/dL (13.0-16.5); Mean Corp Hgb Conc 33.1 g/dL (32-36); Mean Corpuscular Hgb 29.4 pg (27.0-32.0); Mean Corpuscular Volume 88.7 fL (80-94); Mean Platelet Vol. 10.2 fl (6.2-12.0); Platelet Count 201 K/mm3 (150-450); RBC Distribution Width CV 12.3 % (11.6-14.6); RBC Distribution Width SD 39.9 fl (35.1-43.9); Red Blood Count 5.48 M/mm3 (4.6-6.2); White Blood Count 6.8 K/mm3 (4.4-11.0)
[2020-12-21 18:29] LABS: Anion Gap 6 (5-15); BUN 20 mg/dL (7-18); Chloride 107 mmol/L (98-107); Creatinine, Serum 1.15 mg/dL (0.70-1.30); EST Glomerular Filtration Rate 69 mL/min (>60); Est Glom Filt Rate - Afr Amer 83 mL/min (>60); Glucose 91 mg/dL (74-106); Potassium 4.1 mmol/L (3.5-5.1); Sodium Level 138 mmol/L (136-145)
[2020-12-25 09:38] LABS: Tacrolimus (FK506) 5.6 ng/mL (2.0-20.0)
== END 2021-01-05 18:00 | disposition home or self-care (01) ==
LOC: MTLAB 16:23
PROVIDERS: PCP Family Medicine
DX: Z48.298 Encounter for aftercare following other organ transplant (principal); Z11.59 Encounter for screening for other viral diseases; D50.0 Iron deficiency anemia secondary to blood loss (chronic); E11.22 Type 2 diabetes mellitus with diabetic chronic kidney disease; R79.9 Abnormal finding of blood chemistry, unspecified; Z94.0 Kidney transplant status; N18.9 Chronic kidney disease, unspecified; I12.9 Hypertensive chronic kidney disease with stage 1 through stage 4 chronic kidney disease, or unspecified chronic kidney disease
CPT/HCPCS: 36415; 80051; 80197; 82565; 82947; 84520; 85027

== ENCOUNTER 2021-01-22 08:03 | Outpatient (RCR) | payer MEDICARE, BC, SELFPAY ==
[2021-01-22 10:09] LABS: Absolute Lymphocyte Count 0.52 X10^3/uL (0.83-4.51); Absolute Neutrophil Count 5.8 X10^3/uL (2.0-7.7); Basophil# 0.03 X10^3/uL; Basophil% 0.4 % (0-1); Eosinophil# 0.06 X10^3/uL; Eosinophils% 0.8 % (0-5); Hematocrit 49.9 % (40-54); Hemoglobin 15.9 g/dL (13.0-16.5); Lymphocyte # 0.52 X10^3/ul (0.83-4.51); Lymphocyte % 7.3 % (19-41); Mean Corp Hgb Conc 31.9 g/dL (32-36); Mean Corpuscular Hgb 28.8 pg (27.0-32.0); Mean Corpuscular Volume 90.4 fL (80-94); Mean Platelet Vol. 9.9 fl (6.2-12.0); Monocyte# 0.71 X10^3/uL; Monocyte% 9.9 % (0-10); NRBC Flagged by Analyzer 0 % (0-5); Neutrophil # 5.78 X10^3/uL (2.7-7.7); POSITIVE DIFFERENTIAL YES; Platelet Count 188 K/mm3 (150-450); RBC Distribution Width CV 12.5 % (11.6-14.6); RBC Distribution Width SD 41.5 fl (35.1-43.9); Red Blood Count 5.52 M/mm3 (4.6-6.2); White Blood Count 7.1 K/mm3 (4.4-11.0)
[2021-01-22 10:10] LABS: Differential Indicated SCAN CRITERIA MET
[2021-01-22 10:17] LABS: AST(SGOT) 15 U/L (15-37); Alanine Aminotransfer ALT/SGPT 28 U/L (16-61); Albumin, Serum 3.6 g/dL (3.2-5.0); Alkaline Phosphatase 102 U/L (45-117); Anion Gap 4 (5-15); BUN 21 mg/dL (7-18); BUN/Creat Ratio 18.8 RATIO (10-20); Chloride 113 mmol/L (98-107); Cholesterol 189 mg/dL (200); Creatinine, Serum 1.12 mg/dL (0.70-1.30); EST Glomerular Filtration Rate 71 mL/min (>60); Est Glom Filt Rate - Afr Amer 86 mL/min (>60); Ferritin 907 ng/mL (26-388); Globulin 3.6 g/dL (2.2-4.2); Glucose 102 mg/dL (74-106); High Density Lipoprotein 47 mg/dL; Iron 77 ug/dL (65-175); Iron Binding Capacity,Total 231 ug/dL (250-450); Magnesium 1.9 mg/dL (1.6-2.6); PERCENT IRON SATURATION 33.3 % (15.0-55.0); Potassium 4.2 mmol/L (3.5-5.1); Protein, Total 7.2 g/dL (6.4-8.2); Protein, Urine (Random) 26.1 mg/dL (<11.9); Protein:Creat Ratio 233 mg/g CRE (0-200); Sodium Level 144 mmol/L (136-145); Triglycerides 213 mg/dL; Uric Acid 6.5 mg/dL (3.5-7.2); Very Low Density Lipoprotein 43 mg/dL (5-40)
[2021-01-22 11:50] LABS: Phosphorus 2.7 mg/dL (2.5-4.9)
[2021-01-25 20:06] LABS: Tacrolimus (FK506) 7.9 ng/mL (2.0-20.0)
== END 2021-02-06 18:00 | disposition home or self-care (01) ==
LOC: MTLAB 08:03
PROVIDERS: PCP Family Medicine
DX: Z48.298 Encounter for aftercare following other organ transplant (principal); Z11.59 Encounter for screening for other viral diseases; D50.0 Iron deficiency anemia secondary to blood loss (chronic); E11.22 Type 2 diabetes mellitus with diabetic chronic kidney disease; R79.9 Abnormal finding of blood chemistry, unspecified; Z94.0 Kidney transplant status; N18.9 Chronic kidney disease, unspecified; I12.9 Hypertensive chronic kidney disease with stage 1 through stage 4 chronic kidney disease, or unspecified chronic kidney disease
CPT/HCPCS: 36415; 80053; 80061; 80197; 82570; 82728; 83540; 83550; 83735; 84100; 84156; 84550; 85025

== ENCOUNTER 2021-02-22 16:03 | Outpatient (RCR) | payer MEDICARE, BC, SELFPAY ==
[2021-02-22 17:50] LABS: Absolute Lymphocyte Count 1.22 X10^3/uL (0.83-4.51); Absolute Neutrophil Count 4.7 X10^3/uL (2.0-7.7); Basophil# 0.06 X10^3/uL; Basophil% 0.8 % (0-1); Eosinophil# 0.12 X10^3/uL; Eosinophils% 1.7 % (0-5); Hematocrit 48.6 % (40-54); Hemoglobin 15.7 g/dL (13.0-16.5); Lymphocyte # 1.22 X10^3/ul (0.83-4.51); Lymphocyte % 17.1 % (19-41); Mean Corp Hgb Conc 32.3 g/dL (32-36); Mean Corpuscular Hgb 28.7 pg (27.0-32.0); Mean Corpuscular Volume 88.8 fL (80-94); Mean Platelet Vol. 10.2 fl (6.2-12.0); Monocyte# 0.91 X10^3/uL; Monocyte% 12.8 % (0-10); NRBC Flagged by Analyzer 0 % (0-5); Neutrophil # 4.73 X10^3/uL (2.7-7.7); Neutrophil % 66.3 % (47-70); Platelet Count 222 K/mm3 (150-450); RBC Distribution Width CV 12.5 % (11.6-14.6); Red Blood Count 5.47 M/mm3 (4.6-6.2); White Blood Count 7.1 K/mm3 (4.4-11.0)
[2021-02-22 18:05] LABS: Anion Gap 7 (5-15); BUN 26 mg/dL (7-18); Chloride 107 mmol/L (98-107); Creatinine, Serum 1.06 mg/dL (0.70-1.30); EST Glomerular Filtration Rate 76 mL/min (>60); Est Glom Filt Rate - Afr Amer 91 mL/min (>60); Glucose 94 mg/dL (74-106); Sodium Level 139 mmol/L (136-145)
[2021-02-25 17:39] LABS: Tacrolimus (FK506) 7.9 ng/mL (2.0-20.0)
== END 2021-03-08 18:00 | disposition home or self-care (01) ==
LOC: MTLAB 16:03
PROVIDERS: PCP Family Medicine; Visit Provider Internal Medicine Nephrology
DX: Z94.0 Kidney transplant status (principal); E11.22 Type 2 diabetes mellitus with diabetic chronic kidney disease; Z48.298 Encounter for aftercare following other organ transplant; R79.9 Abnormal finding of blood chemistry, unspecified; Z11.59 Encounter for screening for other viral diseases; I10 Essential (primary) hypertension; D50.0 Iron deficiency anemia secondary to blood loss (chronic)
CPT/HCPCS: 36415; 80051; 80197; 82565; 82947; 84520; 85025

== ENCOUNTER 2021-03-24 16:16 | Outpatient (RCR) | payer MEDICARE, BC, SELFPAY ==
[2021-03-24 16:27] LABS: Bacteria 0 SEEN /hpf (None Seen); Mucous, Urine 0 SEEN /hpf (<or=2+); Red Blood Cells-Urine 0 SEEN /hpf (0-5); Squamous Epithelial Cells - UA 0 SEEN /hpf (0-5); White Blood Cells 0 SEEN /hpf (0-5)
[2021-03-24 18:10] LABS: Color, Urine Yellow (Yellow); Glucose, Dipstick Normal (Normal); Hematocrit 46.4 % (40-54); Hemoglobin 15.4 g/dL (13.0-16.5); Ketone-Dipstick Negative (Negative); Leukocyte Esterase-Dipstick Negative /ul (Negative); Mean Corp Hgb Conc 33.2 g/dL (32-36); Mean Corpuscular Hgb 29.8 pg (27.0-32.0); Mean Corpuscular Volume 89.7 fL (80-94); Mean Platelet Vol. 10.2 fl (6.2-12.0); Nitrite-Dipstick Negative (Negative); Occult Blood-Urine Negative /ul (Negative); Platelet Count 223 K/mm3 (150-450); Protein-Dipstick 15 mg/dl (Negative); RBC Distribution Width CV 12.5 % (11.6-14.6); RBC Distribution Width SD 41.3 fl (35.1-43.9); Red Blood Count 5.17 M/mm3 (4.6-6.2); Urine Bilirubin Dipstick Negative (Negative); Urine Clarity Clear (Clear); Urine Urobilinogen Normal (Normal); White Blood Count 6.6 K/mm3 (4.4-11.0)
[2021-03-24 18:27] LABS: ALB/GLOB Ratio 1.1 RATIO (0.9-2.4); AST(SGOT) 18 U/L (15-37); Alanine Aminotransfer ALT/SGPT 25 U/L (16-61); Albumin, Serum 3.6 g/dL (3.2-5.0); Alkaline Phosphatase 92 U/L (45-117); Anion Gap 7 (5-15); BUN 20 mg/dL (7-18); BUN/Creat Ratio 17.4 RATIO (10-20); Calcium,Total 9.2 mg/dL (8.5-10.1); Chloride 109 mmol/L (98-107); Creatinine, Serum 1.15 mg/dL (0.70-1.30); EST Glomerular Filtration Rate 69 mL/min (>60); Est Glom Filt Rate - Afr Amer 83 mL/min (>60); Globulin 3.3 g/dL (2.2-4.2); Glucose 87 mg/dL (74-106); Magnesium 1.8 mg/dL (1.6-2.6); Phosphorus 2.6 mg/dL (2.5-4.9); Potassium 4.2 mmol/L (3.5-5.1); Protein, Total 6.9 g/dL (6.4-8.2); Sodium Level 140 mmol/L (136-145)
[2021-03-24 18:36] LABS: Vitamin D,25 Hydroxy 26.5 ng/mL
[2021-03-24 18:59] LABS: Microalbumin,Random Urine 10.1 mg/L (NO RANGE EST.); Microalbumin:Creatinine Ratio 6.9 mg/g CRE (<30 mg/g CRE)
[2021-03-25 08:16] LABS: PTHIN 289.8 pg/mL (18.4-80.1)
[2021-03-30 14:21] LABS: Tacrolimus (FK506) 5.9 ng/mL (2.0-20.0)
== END 2021-03-24 23:59 | disposition home or self-care (01) ==
LOC: MTLAB 16:16
PROVIDERS: PCP Family Medicine; Visit Provider Internal Medicine Nephrology
DX: D50.0 Iron deficiency anemia secondary to blood loss (chronic) (principal); D89.9 Disorder involving the immune mechanism, unspecified; E11.22 Type 2 diabetes mellitus with diabetic chronic kidney disease; I12.9 Hypertensive chronic kidney disease with stage 1 through stage 4 chronic kidney disease, or unspecified chronic kidney disease; N18.9 Chronic kidney disease, unspecified; R79.9 Abnormal finding of blood chemistry, unspecified; Z94.0 Kidney transplant status; Z48.298 Encounter for aftercare following other organ transplant; Z11.59 Encounter for screening for other viral diseases; E55.9 Vitamin D deficiency, unspecified
CPT/HCPCS: 36415; 80053; 80197; 81001; 82043; 82306; 82570; 83735; 83970; 84100; 85027

== ENCOUNTER 2021-04-27 16:30 | Outpatient (RCR) | payer MEDICARE, BC, SELFPAY ==
[2021-04-27 17:37] LABS: Absolute Lymphocyte Count 1.06 X10^3/uL (0.83-4.51); Absolute Neutrophil Count 4.1 X10^3/uL (2.0-7.7); Basophil# 0.03 X10^3/uL; Basophil% 0.5 % (0-1); Eosinophil# 0.12 X10^3/uL; Hematocrit 46.4 % (40-54); Hemoglobin 15.4 g/dL (13.0-16.5); Lymphocyte # 1.06 X10^3/ul (0.83-4.51); Lymphocyte % 17.4 % (19-41); Mean Corp Hgb Conc 33.2 g/dL (32-36); Mean Corpuscular Hgb 29.4 pg (27.0-32.0); Mean Corpuscular Volume 88.5 fL (80-94); Mean Platelet Vol. 9.7 fl (6.2-12.0); Monocyte# 0.74 X10^3/uL; Monocyte% 12.2 % (0-10); NRBC Flagged by Analyzer 0 % (0-5); Neutrophil # 4.09 X10^3/uL (2.7-7.7); Neutrophil % 67.1 % (47-70); Platelet Count 205 K/mm3 (150-450); RBC Distribution Width CV 12.5 % (11.6-14.6); RBC Distribution Width SD 40.7 fl (35.1-43.9); Red Blood Count 5.24 M/mm3 (4.6-6.2); White Blood Count 6.1 K/mm3 (4.4-11.0)
[2021-04-27 17:53] LABS: ALB/GLOB Ratio 1.2 RATIO (0.9-2.4); AST(SGOT) 15 U/L (15-37); Alanine Aminotransfer ALT/SGPT 22 U/L (16-61); Albumin, Serum 3.7 g/dL (3.2-5.0); Alkaline Phosphatase 91 U/L (45-117); Anion Gap 4 (5-15); BUN 17 mg/dL (7-18); BUN/Creat Ratio 15.9 RATIO (10-20); Calcium,Total 9.4 mg/dL (8.5-10.1); Chloride 111 mmol/L (98-107); Creatinine, Serum 1.07 mg/dL (0.70-1.30); EST Glomerular Filtration Rate 75 mL/min (>60); Est Glom Filt Rate - Afr Amer 90 mL/min (>60); Globulin 3.1 g/dL (2.2-4.2); Glucose 85 mg/dL (74-106); Magnesium 1.9 mg/dL (1.6-2.6); Potassium 4.2 mmol/L (3.5-5.1); Protein, Total 6.8 g/dL (6.4-8.2); Sodium Level 140 mmol/L (136-145)
[2021-05-03 21:33] LABS: Tacrolimus (FK506) 6.5 ng/mL (2.0-20.0)
== END 2021-05-06 18:00 | disposition home or self-care (01) ==
LOC: MTLAB 16:30
PROVIDERS: PCP Family Medicine; Visit Provider Internal Medicine Nephrology
DX: Z48.298 Encounter for aftercare following other organ transplant (principal); E11.22 Type 2 diabetes mellitus with diabetic chronic kidney disease; Z11.59 Encounter for screening for other viral diseases; D50.0 Iron deficiency anemia secondary to blood loss (chronic); R79.9 Abnormal finding of blood chemistry, unspecified; Z94.0 Kidney transplant status; N18.9 Chronic kidney disease, unspecified; I12.9 Hypertensive chronic kidney disease with stage 1 through stage 4 chronic kidney disease, or unspecified chronic kidney disease
CPT/HCPCS: 36415; 80053; 80197; 83735; 85025

== ENCOUNTER 2021-05-24 16:29 | Outpatient (RCR) | payer MEDICARE, BC, SELFPAY ==
[2021-05-24 17:37] LABS: Hematocrit 48.8 % (40-54); Mean Corp Hgb Conc 32.8 g/dL (32-36); Mean Corpuscular Hgb 29.1 pg (27.0-32.0); Mean Corpuscular Volume 88.9 fL (80-94); Mean Platelet Vol. 10.1 fl (6.2-12.0); Platelet Count 211 K/mm3 (150-450); RBC Distribution Width CV 12.5 % (11.6-14.6); RBC Distribution Width SD 40.9 fl (35.1-43.9); Red Blood Count 5.49 M/mm3 (4.6-6.2); White Blood Count 7.6 K/mm3 (4.4-11.0)
[2021-05-24 18:02] LABS: Anion Gap 7 (5-15); BUN 21 mg/dL (7-18); Chloride 107 mmol/L (98-107); Creatinine, Serum 1.13 mg/dL (0.70-1.30); EST Glomerular Filtration Rate 70 mL/min (>60); Est Glom Filt Rate - Afr Amer 85 mL/min (>60); Glucose 89 mg/dL (74-106); Sodium Level 139 mmol/L (136-145)
== END 2021-05-24 18:00 | disposition home or self-care (01) ==
LOC: MTLAB 16:29
PROVIDERS: PCP Family Medicine
DX: Z48.298 Encounter for aftercare following other organ transplant (principal); Z11.59 Encounter for screening for other viral diseases; D50.0 Iron deficiency anemia secondary to blood loss (chronic); E11.22 Type 2 diabetes mellitus with diabetic chronic kidney disease; R79.9 Abnormal finding of blood chemistry, unspecified; Z94.0 Kidney transplant status; N18.9 Chronic kidney disease, unspecified; I12.9 Hypertensive chronic kidney disease with stage 1 through stage 4 chronic kidney disease, or unspecified chronic kidney disease
CPT/HCPCS: 36415; 80051; 80197; 82565; 82947; 84520; 85027

== ENCOUNTER 2021-06-22 16:39 | Outpatient (RCR) | payer MEDICARE, BC, SELFPAY ==
[2021-06-22 17:31] LABS: Hemoglobin 15.2 g/dL (13.0-16.5); Mean Corp Hgb Conc 32.3 g/dL (32-36); Mean Corpuscular Hgb 29.1 pg (27.0-32.0); Mean Corpuscular Volume 89.9 fL (80-94); Mean Platelet Vol. 10.1 fl (6.2-12.0); Platelet Count 211 K/mm3 (150-450); RBC Distribution Width CV 12.4 % (11.6-14.6); RBC Distribution Width SD 40.7 fl (35.1-43.9); Red Blood Count 5.23 M/mm3 (4.6-6.2)
[2021-06-22 18:27] LABS: Anion Gap 6 (5-15); BUN 22 mg/dL (7-18); Chloride 111 mmol/L (98-107); Creatinine, Serum 1.12 mg/dL (0.70-1.30); EST Glomerular Filtration Rate 71 mL/min (>60); Est Glom Filt Rate - Afr Amer 86 mL/min (>60); Glucose 90 mg/dL (74-106); Potassium 4.1 mmol/L (3.5-5.1); Sodium Level 140 mmol/L (136-145)
[2021-06-27 16:24] LABS: Tacrolimus (FK506) 6.1 ng/mL (2.0-20.0)
== END 2021-06-22 18:00 | disposition home or self-care (01) ==
LOC: MTLAB 16:39
PROVIDERS: PCP Family Medicine
DX: E11.22 Type 2 diabetes mellitus with diabetic chronic kidney disease (principal); N18.9 Chronic kidney disease, unspecified; Z94.0 Kidney transplant status; Z48.298 Encounter for aftercare following other organ transplant; R79.9 Abnormal finding of blood chemistry, unspecified; I12.9 Hypertensive chronic kidney disease with stage 1 through stage 4 chronic kidney disease, or unspecified chronic kidney disease; Z11.59 Encounter for screening for other viral diseases; D50.0 Iron deficiency anemia secondary to blood loss (chronic)
CPT/HCPCS: 36415; 80051; 80197; 82565; 82947; 84520; 85027

== ENCOUNTER 2021-07-22 09:34 | Outpatient (RCR) | payer MEDICARE, SELFPAY ==
[2021-07-22 09:56] LABS: Absolute Neutrophil Count 5.1 X10^3/uL (2.0-7.7); Basophil# 0.05 X10^3/uL; Basophil% 0.7 % (0-1); Eosinophil# 0.11 X10^3/uL; Eosinophils% 1.6 % (0-5); Hematocrit 50.4 % (40-54); Hemoglobin 16.1 g/dL (13.0-16.5); Lymphocyte % 14.2 % (19-41); Mean Corp Hgb Conc 31.9 g/dL (32-36); Mean Corpuscular Hgb 28.8 pg (27.0-32.0); Mean Corpuscular Volume 90.2 fL (80-94); Mean Platelet Vol. 9.5 fl (6.2-12.0); Monocyte# 0.66 X10^3/uL; Monocyte% 9.4 % (0-10); NRBC Flagged by Analyzer 0 % (0-5); Neutrophil # 5.14 X10^3/uL (2.7-7.7); Neutrophil % 73.1 % (47-70); Platelet Count 193 K/mm3 (150-450); RBC Distribution Width CV 12.4 % (11.6-14.6); Red Blood Count 5.59 M/mm3 (4.6-6.2)
[2021-07-22 10:22] LABS: AST(SGOT) 15 U/L (15-37); Alanine Aminotransfer ALT/SGPT 24 U/L (16-61); Albumin, Serum 3.5 g/dL (3.2-5.0); Alkaline Phosphatase 111 U/L (45-117); Anion Gap 6 (5-15); BUN 18 mg/dL (7-18); BUN/Creat Ratio 15.9 RATIO (10-20); Calcium,Total 10.6 mg/dL (8.5-10.1); Chloride 110 mmol/L (98-107); Creatinine, Serum 1.13 mg/dL (0.70-1.30); EST Glomerular Filtration Rate 70 mL/min (>60); Est Glom Filt Rate - Afr Amer 85 mL/min (>60); Globulin 3.5 g/dL (2.2-4.2); Glucose 106 mg/dL (74-106); Magnesium 1.6 mg/dL (1.6-2.6); Potassium 4.4 mmol/L (3.5-5.1); Sodium Level 139 mmol/L (136-145)
[2021-07-22 17:56] LABS: Protein, Urine (Random) 12.9 mg/dL (<11.9); Protein:Creat Ratio 189 mg/g CRE (0-200)
[2021-07-22 18:11] LABS: Cholesterol 175 mg/dL (200); Ferritin 801 ng/mL (26-388); High Density Lipoprotein 34 mg/dL; Iron 78 ug/dL (65-175); Iron Binding Capacity,Total 302 ug/dL (250-450); PERCENT IRON SATURATION 25.8 % (15.0-55.0); Triglycerides 461 mg/dL; Uric Acid 6.5 mg/dL (3.5-7.2)
[2021-07-24 20:09] LABS: Transferrin 173 mg/dL (177-329)
[2021-07-25 16:46] LABS: Tacrolimus (FK506) 7.4 ng/mL (2.0-20.0)
== END 2021-08-05 16:00 | disposition home or self-care (01) ==
LOC: MTLAB 09:34
PROVIDERS: PCP Family Medicine
DX: E11.22 Type 2 diabetes mellitus with diabetic chronic kidney disease (principal); N18.9 Chronic kidney disease, unspecified; Z94.0 Kidney transplant status; Z48.298 Encounter for aftercare following other organ transplant; R79.9 Abnormal finding of blood chemistry, unspecified; I12.9 Hypertensive chronic kidney disease with stage 1 through stage 4 chronic kidney disease, or unspecified chronic kidney disease; Z11.59 Encounter for screening for other viral diseases; D50.0 Iron deficiency anemia secondary to blood loss (chronic)
CPT/HCPCS: 36415; 80053; 80061; 80197; 82570; 82728; 83540; 83550; 83735; 84156; 84466; 84550; 85025

== ENCOUNTER 2021-09-22 09:07 | Outpatient (RCR) | payer MEDICARE, SELFPAY ==
[2021-09-22 10:18] LABS: Hematocrit 49.7 % (40-54); Hemoglobin 15.9 g/dL (13.0-16.5); Mean Corpuscular Hgb 28.7 pg (27.0-32.0); Mean Corpuscular Volume 89.7 fL (80-94); Mean Platelet Vol. 9.8 fl (6.2-12.0); Platelet Count 239 K/mm3 (150-450); RBC Distribution Width CV 12.5 % (11.6-14.6); RBC Distribution Width SD 40.8 fl (35.1-43.9); Red Blood Count 5.54 M/mm3 (4.6-6.2); White Blood Count 7.6 K/mm3 (4.4-11.0)
[2021-09-22 10:58] LABS: Anion Gap 7 (5-15); BUN 15 mg/dL (7-18); BUN/Creat Ratio 13.8 RATIO (10-20); Calcium,Total 9.9 mg/dL (8.5-10.1); Chloride 110 mmol/L (98-107); Creatinine, Serum 1.09 mg/dL (0.70-1.30); EST Glomerular Filtration Rate 73 mL/min (>60); Est Glom Filt Rate - Afr Amer 88 mL/min (>60); Glucose 115 mg/dL (74-106); Magnesium 1.8 mg/dL (1.6-2.6); Phosphorus 2.2 mg/dL (2.5-4.9); Potassium 3.9 mmol/L (3.5-5.1); Sodium Level 141 mmol/L (136-145)
[2021-09-24 13:14] LABS: Tacrolimus (FK506) 7.2 ng/mL (2.0-20.0)
== END 2021-09-22 18:00 | disposition home or self-care (01) ==
LOC: MTLAB 09:07
PROVIDERS: PCP Family Medicine
DX: Z48.298 Encounter for aftercare following other organ transplant (principal); Z11.59 Encounter for screening for other viral diseases; E11.22 Type 2 diabetes mellitus with diabetic chronic kidney disease; N18.9 Chronic kidney disease, unspecified; I12.9 Hypertensive chronic kidney disease with stage 1 through stage 4 chronic kidney disease, or unspecified chronic kidney disease; D50.0 Iron deficiency anemia secondary to blood loss (chronic); R79.9 Abnormal finding of blood chemistry, unspecified; Z94.0 Kidney transplant status; E78.5 Hyperlipidemia, unspecified
CPT/HCPCS: 36415; 80048; 80197; 83735; 84100; 85027

== ENCOUNTER 2021-11-22 08:00 | Outpatient (RCR) | payer MEDICARE, SELFPAY ==
[2021-11-22 10:01] LABS: Hemoglobin 15.4 g/dL (13.0-16.5); Mean Corp Hgb Conc 32.1 g/dL (32-36); Mean Corpuscular Hgb 28.7 pg (27.0-32.0); Mean Corpuscular Volume 89.4 fL (80-94); Mean Platelet Vol. 9.9 fl (6.2-12.0); Platelet Count 215 K/mm3 (150-450); RBC Distribution Width CV 12.4 % (11.6-14.6); RBC Distribution Width SD 40.7 fl (35.1-43.9); Red Blood Count 5.37 M/mm3 (4.6-6.2); White Blood Count 7.7 K/mm3 (4.4-11.0)
[2021-11-22 10:30] LABS: Anion Gap 9 (5-15); BUN 24 mg/dL (7-18); BUN/Creat Ratio 19.5 RATIO (10-20); Calcium,Total 9.8 mg/dL (8.5-10.1); Chloride 108 mmol/L (98-107); Creatinine, Serum 1.23 mg/dL (0.70-1.30); EST Glomerular Filtration Rate 64 mL/min (>60); Est Glom Filt Rate - Afr Amer 77 mL/min (>60); Glucose 110 mg/dL (74-106); Magnesium 1.6 mg/dL (1.6-2.6); Phosphorus 2.4 mg/dL (2.5-4.9); Potassium 4.1 mmol/L (3.5-5.1); Sodium Level 139 mmol/L (136-145)
== END 2021-11-22 18:00 | disposition home or self-care (01) ==
LOC: MTLAB 08:00
PROVIDERS: Family Medicine; PCP Family Medicine
DX: Z48.298 Encounter for aftercare following other organ transplant (principal); Z11.59 Encounter for screening for other viral diseases; E11.22 Type 2 diabetes mellitus with diabetic chronic kidney disease; N18.9 Chronic kidney disease, unspecified; I12.9 Hypertensive chronic kidney disease with stage 1 through stage 4 chronic kidney disease, or unspecified chronic kidney disease; D50.0 Iron deficiency anemia secondary to blood loss (chronic); E78.5 Hyperlipidemia, unspecified; R79.9 Abnormal finding of blood chemistry, unspecified; Z94.0 Kidney transplant status
CPT/HCPCS: 36415; 80048; 80197; 83735; 84100; 84153; 85027; G0103

== ENCOUNTER 2022-02-01 09:38 | Outpatient (RCR) | payer MEDICARE, SELFPAY ==
[2022-02-01 12:22] LABS: Hematocrit 47.5 % (40-54); Hemoglobin 14.9 g/dL (13.0-16.5); Mean Corp Hgb Conc 31.4 g/dL (32-36); Mean Corpuscular Hgb 28.3 pg (27.0-32.0); Mean Corpuscular Volume 90.3 fL (80-94); Mean Platelet Vol. 10.1 fl (6.2-12.0); Platelet Count 208 K/mm3 (150-450); RBC Distribution Width CV 12.6 % (11.6-14.6); RBC Distribution Width SD 41.8 fl (35.1-43.9); Red Blood Count 5.26 M/mm3 (4.6-6.2); White Blood Count 6.8 K/mm3 (4.4-11.0)
[2022-02-01 12:34] LABS: Anion Gap 7 (5-15); BUN 22 mg/dL (7-18); BUN/Creat Ratio 20.8 RATIO (10-20); Chloride 110 mmol/L (98-107); Creatinine, Serum 1.06 mg/dL (0.70-1.30); EST Glomerular Filtration Rate 75 mL/min (>60); Est Glom Filt Rate - Afr Amer 91 mL/min (>60); Glucose 112 mg/dL (74-106); Magnesium 1.8 mg/dL (1.6-2.6); Potassium 4.1 mmol/L (3.5-5.1); Sodium Level 143 mmol/L (136-145)
[2022-02-03 16:38] LABS: Tacrolimus (FK506) 6.5 ng/mL (2.0-20.0)
== END 2022-02-01 18:00 | disposition home or self-care (01) ==
LOC: MTLAB 09:38
PROVIDERS: PCP Family Medicine
DX: Z48.298 Encounter for aftercare following other organ transplant (principal); Z11.59 Encounter for screening for other viral diseases; E11.22 Type 2 diabetes mellitus with diabetic chronic kidney disease; N18.9 Chronic kidney disease, unspecified; I12.9 Hypertensive chronic kidney disease with stage 1 through stage 4 chronic kidney disease, or unspecified chronic kidney disease; D50.0 Iron deficiency anemia secondary to blood loss (chronic); E78.5 Hyperlipidemia, unspecified; R79.9 Abnormal finding of blood chemistry, unspecified; Z94.0 Kidney transplant status
CPT/HCPCS: 36415; 80048; 80197; 83735; 84100; 85027

== ENCOUNTER 2022-03-24 08:13 | Outpatient (RCR) | payer MEDICARE, SELFPAY ==
[2022-03-24 10:12] LABS: Absolute Lymphocyte Count 1.19 X10^3/uL (0.83-4.51); Absolute Neutrophil Count 4.1 X10^3/uL (2.0-7.7); Basophil# 0.06 X10^3/uL; Eosinophil# 0.16 X10^3/uL; Eosinophils% 2.5 % (0-5); Hematocrit 49.2 % (40-54); Hemoglobin 15.3 g/dL (13.0-16.5); Lymphocyte # 1.19 X10^3/ul (0.83-4.51); Lymphocyte % 18.9 % (19-41); Mean Corp Hgb Conc 31.1 g/dL (32-36); Mean Corpuscular Hgb 28.5 pg (27.0-32.0); Mean Corpuscular Volume 91.6 fL (80-94); Mean Platelet Vol. 9.6 fl (6.2-12.0); Monocyte# 0.71 X10^3/uL; Monocyte% 11.3 % (0-10); NRBC Flagged by Analyzer 0 % (0-5); Neutrophil # 4.12 X10^3/uL (2.7-7.7); Neutrophil % 65.5 % (47-70); Platelet Count 189 K/mm3 (150-450); RBC Distribution Width CV 12.7 % (11.6-14.6); RBC Distribution Width SD 42.5 fl (35.1-43.9); Red Blood Count 5.37 M/mm3 (4.6-6.2); White Blood Count 6.3 K/mm3 (4.4-11.0)
[2022-03-24 10:21] LABS: Anion Gap 9 (5-15); BUN 15 mg/dL (7-18); BUN/Creat Ratio 13.3 RATIO (10-20); Calcium,Total 9.7 mg/dL (8.5-10.1); Chloride 111 mmol/L (98-107); Creatinine, Serum 1.13 mg/dL (0.70-1.30); EST Glomerular Filtration Rate 70 mL/min (>60); Est Glom Filt Rate - Afr Amer 85 mL/min (>60); Glucose 123 mg/dL (74-106); Magnesium 1.8 mg/dL (1.6-2.6); Phosphorus 2.3 mg/dL (2.5-4.9); Sodium Level 144 mmol/L (136-145)
[2022-03-28 12:57] LABS: Tacrolimus (FK506) 5.4 ng/mL (2.0-20.0)
== END 2022-03-24 18:00 | disposition home or self-care (01) ==
LOC: MTLAB 08:13
PROVIDERS: PCP Family Medicine
DX: Z48.298 Encounter for aftercare following other organ transplant (principal); Z11.59 Encounter for screening for other viral diseases; E11.22 Type 2 diabetes mellitus with diabetic chronic kidney disease; N18.9 Chronic kidney disease, unspecified; I12.9 Hypertensive chronic kidney disease with stage 1 through stage 4 chronic kidney disease, or unspecified chronic kidney disease; D50.0 Iron deficiency anemia secondary to blood loss (chronic); E78.5 Hyperlipidemia, unspecified; R79.9 Abnormal finding of blood chemistry, unspecified; Z94.0 Kidney transplant status
CPT/HCPCS: 36415; 80048; 80197; 83735; 84100; 85025

== ENCOUNTER 2022-05-26 08:33 | Outpatient (RCR) | payer MEDICARE, SELFPAY ==
[2022-05-26 10:02] LABS: Absolute Lymphocyte Count 1.27 X10^3/uL (0.83-4.51); Absolute Neutrophil Count 4.5 X10^3/uL (2.0-7.7); Basophil# 0.06 X10^3/uL; Basophil% 0.9 % (0-1); Eosinophils% 1.4 % (0-5); Hematocrit 49.7 % (40-54); Hemoglobin 15.8 g/dL (13.0-16.5); Lymphocyte # 1.27 X10^3/ul (0.83-4.51); Lymphocyte % 18.1 % (19-41); Mean Corp Hgb Conc 31.8 g/dL (32-36); Mean Corpuscular Hgb 28.8 pg (27.0-32.0); Mean Corpuscular Volume 90.7 fL (80-94); Monocyte# 0.95 X10^3/uL; Monocyte% 13.6 % (0-10); NRBC Flagged by Analyzer 0 % (0-5); Neutrophil # 4.54 X10^3/uL (2.7-7.7); Neutrophil % 64.9 % (47-70); Platelet Count 197 K/mm3 (150-450); RBC Distribution Width CV 12.5 % (11.6-14.6); RBC Distribution Width SD 41.2 fl (35.1-43.9); Red Blood Count 5.48 M/mm3 (4.6-6.2)
[2022-05-26 10:17] LABS: Anion Gap 1 (5-15); BUN 17 mg/dL (7-18); BUN/Creat Ratio 15.3 RATIO (10-20); Calcium,Total 9.9 mg/dL (8.5-10.1); Chloride 112 mmol/L (98-107); Creatinine, Serum 1.11 mg/dL (0.70-1.30); EST Glomerular Filtration Rate 71 mL/min (>60); Est Glom Filt Rate - Afr Amer 86 mL/min (>60); Glucose 117 mg/dL (74-106); Magnesium 1.7 mg/dL (1.6-2.6); Phosphorus 2.5 mg/dL (2.5-4.9); Potassium 3.9 mmol/L (3.5-5.1); Sodium Level 138 mmol/L (136-145)
== END 2022-06-05 05:26 | disposition home or self-care (01) ==
LOC: MTLAB 08:33
PROVIDERS: PCP Family Medicine
DX: Z48.298 Encounter for aftercare following other organ transplant (principal); Z11.59 Encounter for screening for other viral diseases; E11.22 Type 2 diabetes mellitus with diabetic chronic kidney disease; N18.9 Chronic kidney disease, unspecified; I12.9 Hypertensive chronic kidney disease with stage 1 through stage 4 chronic kidney disease, or unspecified chronic kidney disease; D50.0 Iron deficiency anemia secondary to blood loss (chronic); E78.5 Hyperlipidemia, unspecified; R79.9 Abnormal finding of blood chemistry, unspecified; Z94.0 Kidney transplant status
CPT/HCPCS: 36415; 80048; 80197; 83735; 84100; 85025

== ENCOUNTER → 2022-10-11 | Outpatient (CLI) | payer OTHER, SELFPAY ==
[2022-10-11 10:33] LABS: Hematocrit 47.8 % (40-54); Hemoglobin 15.4 g/dL (13.0-16.5); Mean Corp Hgb Conc 32.2 g/dL (32-36); Mean Corpuscular Hgb 29.2 pg (27.0-32.0); Mean Corpuscular Volume 90.7 fL (80-94); Mean Platelet Vol. 9.9 fl (6.2-12.0); Platelet Count 202 K/mm3 (150-450); RBC Distribution Width CV 12.5 % (11.6-14.6); RBC Distribution Width SD 41.1 fl (35.1-43.9); Red Blood Count 5.27 M/mm3 (4.6-6.2); White Blood Count 7.1 K/mm3 (4.4-11.0)
[2022-10-11 11:01] LABS: Albumin, Serum 3.5 g/dL (3.2-5.0); BUN 20 mg/dL (7-18); BUN/Creat Ratio 16.4 RATIO (10-20); Calcium,Total 9.4 mg/dL (8.5-10.1); Chloride 112 mmol/L (98-107); Creatinine, Serum 1.22 mg/dL (0.70-1.30); EST Glomerular Filtration Rate 64 mL/min (>60); Est Glom Filt Rate - Afr Amer 77 mL/min (>60); Glucose 128 mg/dL (74-106); Phosphorus 2.5 mg/dL (2.5-4.9); Potassium 4.3 mmol/L (3.5-5.1); Sodium Level 142 mmol/L (136-145)
[2022-10-11 11:31] LABS: Microalbumin,Random Urine 5.6 mg/L (NO RANGE EST.); Microalbumin:Creatinine Ratio 3.5 mg/g CRE (<30 mg/g CRE); Protein, Urine (Random) 20.9 mg/dL (<11.9); Protein:Creat Ratio 132 mg/g CRE (0-200)
[2022-10-11 14:43] LABS: Vitamin D,25 Hydroxy 44.2 ng/mL
[2022-10-13 06:09] LABS: Tacrolimus (FK506) 28.4 ng/mL (2.0-20.0)
== END | disposition home or self-care (01) ==
LOC: MTLAB 09:10
PROVIDERS: PCP Family Medicine; Referring Provider Pediatrics Pediatric Nephrology; Visit Provider Pediatrics Pediatric Nephrology
DX: Z94.0 Kidney transplant status (principal); E55.9 Vitamin D deficiency, unspecified
CPT/HCPCS: 36415; 80069; 80197; 82043; 82306; 82570; 83970; 84156; 85027

== ENCOUNTER → 2022-10-14 | Outpatient (CLI) | payer OTHER, SELFPAY ==
[2022-10-18 21:07] LABS: Tacrolimus (FK506) 13.7 ng/mL (2.0-20.0)
== END | disposition home or self-care (01) ==
LOC: MTLAB 08:16
PROVIDERS: PCP Family Medicine; Referring Provider Pediatrics Pediatric Nephrology; Visit Provider Pediatrics Pediatric Nephrology
DX: D89.9 Disorder involving the immune mechanism, unspecified (principal)
CPT/HCPCS: 36415; 80197

== ENCOUNTER → 2023-03-31 | Outpatient (CLI) | payer OTHER, SELFPAY ==
[2023-03-31 10:15] LABS: Hematocrit 47.6 % (40-54); Hemoglobin 15.7 g/dL (13.0-16.5); Mean Corpuscular Hgb 29.5 pg (27.0-32.0); Mean Corpuscular Volume 89.3 fL (80-94); Platelet Count 218 K/mm3 (150-450); RBC Distribution Width CV 12.7 % (11.6-14.6); RBC Distribution Width SD 41.2 fl (35.1-43.9); Red Blood Count 5.33 M/mm3 (4.6-6.2); White Blood Count 5.9 K/mm3 (4.4-11.0)
[2023-03-31 10:32] LABS: Vitamin D,25 Hydroxy 57.2 ng/mL
[2023-03-31 10:36] LABS: PTHIN 125.6 pg/mL (18.4-80.1)
[2023-03-31 10:40] LABS: Protein, Urine (Random) 15.9 mg/dL (<11.9); Protein:Creat Ratio 98 mg/g CRE (0-200)
[2023-03-31 11:01] LABS: Albumin, Serum 3.7 g/dL (3.2-5.0); BUN 15 mg/dL (7-18); BUN/Creat Ratio 13.3 RATIO (10-20); Calcium,Total 10.4 mg/dL (8.5-10.1); Chloride 110 mmol/L (98-107); Creatinine, Serum 1.13 mg/dL (0.70-1.30); EST Glomerular Filtration Rate 70 mL/min (>60); Est Glom Filt Rate - Afr Amer 84 mL/min (>60); Glucose 123 mg/dL (74-106); Phosphorus 2.7 mg/dL (2.5-4.9); Sodium Level 141 mmol/L (136-145)
== END | disposition home or self-care (01) ==
LOC: MTLAB 08:44
PROVIDERS: PCP Family Medicine; Referring Provider Pediatrics Pediatric Nephrology; Visit Provider Pediatrics Pediatric Nephrology
DX: D89.9 Disorder involving the immune mechanism, unspecified (principal); E55.9 Vitamin D deficiency, unspecified; D64.9 Anemia, unspecified
CPT/HCPCS: 36415; 80069; 80197; 82306; 82570; 83970; 84156; 85027

== ENCOUNTER → 2023-09-26 | Outpatient (CLI) | payer OTHER, SELFPAY ==
[2023-09-26 10:34] LABS: Hematocrit 49.8 % (40-54); Hemoglobin 15.9 g/dL (13.0-16.5); Mean Corp Hgb Conc 31.9 g/dL (32-36); Mean Corpuscular Hgb 28.4 pg (27.0-32.0); Mean Corpuscular Volume 88.9 fL (80-94); Mean Platelet Vol. 10.2 fl (6.2-12.0); Platelet Count 200 K/mm3 (150-450); RBC Distribution Width CV 12.3 % (11.6-14.6); RBC Distribution Width SD 40.1 fl (35.1-43.9); White Blood Count 6.6 K/mm3 (4.4-11.0)
[2023-09-26 10:49] LABS: PTHIN 214.1 pg/mL (18.4-80.1)
[2023-09-26 11:08] LABS: Albumin, Serum 3.5 g/dL (3.2-5.0); BUN 19 mg/dL (7-18); BUN/Creat Ratio 17.3 RATIO (10-20); Chloride 110 mmol/L (98-107); EST Glomerular Filtration Rate 72 mL/min (>60); Est Glom Filt Rate - Afr Amer 87 mL/min (>60); Glucose 110 mg/dL (74-106); Phosphorus 2.4 mg/dL (2.5-4.9); Potassium 4.1 mmol/L (3.5-5.1); Sodium Level 139 mmol/L (136-145)
[2023-09-26 11:17] LABS: Protein, Urine (Random) 17.9 mg/dL (<11.9); Protein:Creat Ratio 161 mg/g CRE (0-200)
[2023-09-26 12:34] LABS: Vitamin D,25 Hydroxy 77.6 ng/mL
[2023-09-28 15:09] LABS: BK Virus Quant, PCR Negative (Negative); Tacrolimus (FK506) 5.8 ng/mL (2.0-20.0)
== END | disposition home or self-care (01) ==
LOC: MTLAB 08:12
PROVIDERS: PCP Family Medicine; Referring Provider Internal Medicine Nephrology; Visit Provider Internal Medicine Nephrology
DX: Z94.0 Kidney transplant status (principal)
CPT/HCPCS: 36415; 80069; 80197; 82306; 82570; 83970; 84156; 85027; 87799

== ENCOUNTER → 2024-04-03 | Outpatient (CLI) | payer OTHER, SELFPAY ==
[2024-04-03 10:27] LABS: Hematocrit 47.1 % (40-54); Hemoglobin 15.1 g/dL (13.0-16.5); Mean Corp Hgb Conc 32.1 g/dL (32-36); Mean Corpuscular Hgb 28.7 pg (27.0-32.0); Mean Corpuscular Volume 89.4 fL (80-94); Mean Platelet Vol. 10.1 fl (6.2-12.0); Platelet Count 187 K/mm3 (150-450); RBC Distribution Width CV 12.6 % (11.6-14.6); RBC Distribution Width SD 40.9 fl (35.1-43.9); Red Blood Count 5.27 M/mm3 (4.6-6.2); White Blood Count 7.2 K/mm3 (4.4-11.0)
[2024-04-03 10:56] LABS: Protein, Urine (Random) 8 mg/dL (<=12); Protein:Creat Ratio 68 mg/g CRE (0-200)
[2024-04-03 11:15] LABS: PTHIN 119 pg/mL (11-61)
[2024-04-03 18:52] LABS: Albumin, Serum 4.1 g/dL (3.4-4.8); BUN 20 mg/dL (4-19); BUN/Creat Ratio 16.4 RATIO (10-20); Calcium 10.4 mg/dL (7.6-11.0); Carbon Dioxide 23.4 mmol/L (22.0-29.0); Chloride 106 mmol/L (96-108); Creatinine, Serum 1.2 mg/dL (0.8-1.3); EST Glomerular Filtration Rate 68 (>60); Glucose 103 mg/dL (70-99); Potassium 4.2 mmol/L (3.3-5.1); Sodium Level 141 mmol/L (133-145); Vitamin D,25 Hydroxy 54.7 ng/mL (30-100)
[2024-04-05 18:08] LABS: Tacrolimus (FK506) 6.6 ng/mL (5.0-20.0)
== END | disposition home or self-care (01) ==
PROVIDERS: PCP Family Medicine; Referring Provider Internal Medicine Nephrology; Visit Provider Internal Medicine Nephrology
DX: Z94.0 Kidney transplant status (principal); D64.9 Anemia, unspecified; D89.9 Disorder involving the immune mechanism, unspecified
CPT/HCPCS: 36415; 80069; 80197; 82306; 82570; 83970; 84156; 85027

== ENCOUNTER → 2024-10-29 | Outpatient (CLI) | payer OTHER, SELFPAY ==
--- OUTSIDE RECORDS SUMMARY | 2024-10-29 07:35 | XMS RPT_ITS | CCD ---
Author Organization [facility] [place] [facility]ini[facility] Care Team Providers Care Cytologist Name Role Phone LIBBY MENENDEZ Unavailable Unavailable LIBBY MENENDEZ Unavailable Unavailable Brittany Murillo Primary Care Provider [phone] Brittany Murillo Primary Care Provider Marina Arita MD Unavailable HILDA BUTLER, DR JOHNSON Attending Unavailable NONE, NONE Primary Care Unavailable NONE, NONE Consulting Unavailable HILDA BUTLER, DR JOHNSON Admitting Unavailable NONE, NONE Primary Care Unavailable NONE, NONE Consulting Unavailable HILDA BUTLER, DR JOHNSON Admitting Unavailable HILDA BUTLER, DR JOHNSON Attending Unavailable Luchoa, Minor F Unavailable [phone] Unavailable Unavailable Petrisoa , Minor F Primary Care Provider Petrisoa DO, Minor Primary Care Provider Renuka BUTLER, Liane Unavailable [phone] Denzel BUTLER, Azalea Unavailable [phone] Bharath Garcia Unavailable AMOSLLA, MINOR Primary Care Unavailable OKABE, TOSHIMASA Attending Unavailable OKABE, TOSHIMASA Referring Unavailable RENEE CALLE Attending Unavailable PETRILLA, MINOR Primary Care Unavailable PETRILLA, MINOR Referring Unavailable SELF, SELF Referring Unavailable PETRILLA, MINOR Primary Care Unavailable OKABE, TOSHIMASA Admitting Unavailable OKABE, TOSHIMASA Attending Unavailable PETRILLA, MINOR Primary Care Unavailable SELF, SELF Referring Unavailable LOUIE PLASENCIA Attending Unavailable PETRILLA, MINOR Primary Care Unavailable OKABE, TOSHIMASA Referring Unavailable RENEE CALLE Attending Unavailable HELDER BUSBY Attending Unavailable SELF, SELF Referring Unavailable PETRILLA, MINOR Primary Care Unavailable SUGEY MADERAAY S Referring Unavailable PETRILLA, MINOR Primary Care Unavailable MEDINAERIK ROCKYSELINA Attending Unavailable Petrilla DO, Minor F Primary Care Provider Amoslla DO, Minor F Primary Care Provider Luchoa DO, Minor F Primary Care Provider [phone] Ramon Carrillo Primary Care Unavailable Renuka, Dilan Referring Unavailable Renuka, Dilan Attending Unavailable Renuka, Dilan Attending Unavailable Ramon Carrillo Primary Care Unavailable Renuka, Aguilaryaprakas Referring Unavailable Gerardo BUTLER, Dr. Navarro Primary Care Provider Renuka BUTLER, Dr. Kong Attending Provider [phone] Renuka BUTLER, Dr. Kong Referring Provider PETRIA, MINOR Attending Unavailable PETRILLA, MINOR Primary Care Unavailable SAMAD, ACE Attending Unavailable SAMAD, ACE Referring Unavailable PETRILLA, MINOR Primary Care Unavailable SAMAD, ACE Attending Unavailable PETRILLA, MINOR Primary Care Unavailable CECE, REGI Attending Unavailable PETRILLA, MINOR Primary Care Unavailable PETRILLA, MINOR Attending Unavailable PETRILLA, MINOR Primary Care Unavailable PETRILLA, MINOR Primary Care Unavailable SAMAD, ACE Attending Unavailable PETRILLA, MINOR Primary Care Unavailable Allergies Allergy Classification Reported Allergen(s) Allergy Type Date of Onset Reaction(s) Facility HMG-CoA Reductase Inhibitors (statins) (1 source) Hmg-Coa Reductase Inhibitors (Statins); Translations: [Statins] Drug Allergy [facility]: nickel sulfate (1 source) nickel sulfate Drug Allergy 3 [facility] (1 source) Hmg-Coa Reductase Inhibitors (Statins); Translations: [[id number]-LJ A REDUCTASE INHIBITORS] Propensity to adverse reactions (disorder) [facility] Repository (17 sources) Hmg-Coa Reductase Inhibitors (Statins) Propensity to adverse reactions to drug 6 [place], [place] (3 sources) Zwrctol-Biu-Ecd Reductase Inhibitor; Translations: [Oaooozz-Ayx-Zv a Reductase Inhibitor] Allergy to substance 1 NEEDS FOLLOW-UP [facility] Repository (20 sources) HMG-CoA reductase inhibitor Drug Intolerance 6 Other [facility] (20 sources) nickel sulfate Drug Allergy 3 [facility] Medications Current Medications Medication Drug Class(es) Dates Sig (Normalized) Sig (Original) acetaminophen 325 mg / HYDROcodone bitartrate 5 mg oral tablet (2 sources) Opioid Agonist Start: 10-09-2018 End: 10-12-2018 take 1 tablet by mouth every four hours as needed for pain, then take 1 tablet by mouth as needed for pain HYDROcodone-aceta minophen (NORCO) 5-325 MG per tablet Indications: ESRD on dialysis (HCC) Take 1 tablet by mouth every 4 hours as needed for Pain for up to 3 days. Intended supply: 3 days. Take lowest dose possible to manage pain 18 tablet 0 10/09/2018 10/12/2018 Active Start: 10-09-2018 End: 10-14-2018 HYDROcodone-acetaminophen (N ORCO) 5-325 MG per tablet 1 tablet ALPRAZolam 0.25 mg disintegrating oral tablet (1 source) Benzodiazepine Start: 10-09-2018 ALPRAZolam (NIRAVAM) dissolvable tablet 0.25 mg apixaban 5 mg oral tablet (12 sources) Factor Xa Inhibitor Start: 10-23-2019 take 1 tablet by mouth twice daily Apixaban (Eliquis) 5 mg tablet Active 5 mg PO TWICE A DAY November 25, 2020 12:00am aspirin 81 mg chewable tablet (8 sources) Platelet Aggregation Inhibitor, Nonsteroidal Anti-inflammatory Drug Start: 07-06-2021 End: 07-06-2021 aspirin 81 MG Chew Tab chewable tablet Chew 1 tablet daily every morning. Take for 1 month then stop 08/06/2021 30 tablet 0 07/06/2021 Active take 1 tablet by mouth once ángel y aspirin 81 MG tablet Take 81 mg by mouth nightly 0 Active calcitriol 0.0005 mg oral capsule (4 sources) Vitamin D3 Analog calcitRIOL (RO CALTROL) 0.5 MCG capsule Take 0.5 mcg by mouth 0 Active cinacalcet 60 mg oral tablet (4 sources) Calcium-sensing Receptor Agonist take 1 tablet by mouth once daily cinacalcet (SENSIPAR) 60 MG tablet Take 60 mg by mouth daily 0 Active 24 hr dilTIAZem hydrochloride 360 mg extended release oral tablet (3 sources) Calcium Channel Javi take 360 mg by mouth once daily DILTIAZEM HCL PO Take 360 mg by mouth nightly 0 Active 1 ml diphenhydrAMINE hydrochloride 50 mg/ml cartridge (1 source) Histamine-1 Receptor Antagonist Start: 10-10-19 End: 10-10-19 diphenhydrAMINE (BENADRYL) injection 12.5 mg enalapril maleate 10 mg oral tablet (20 sources) Angiotensin Converting Enzyme Inhibitor Start: 05-14-19 End: 11-05-19 take 1 tablet by mouth once daily enalapril (Vasotec) 10 MG tablet Take 1 tablet (10 mg) by mouth daily for 90 doses. 90 tablet 1 08/06/2024 11/04/2024 Active Start: 09-26-2022 End: 05-13-2024 take 1 tablet by mouth once daily enalapril (Vasotec) 5 MG tablet Take 1 tablet (5 mg) by mouth daily. 90 tablet 1 12/06/2023 05/13/2024 Discontinued Start: 07-07-2021 End: 07-06-2021 take 5 mg by mouth once daily 5 mg, Oral, DAILY, First dose on Mon07/07/21 at 0900, Until Discontinued Start: 04-10-2020 End: 09-26-2022 take 1 tablet by mouth once daily Enalapril Maleate 5 mg tablet Active 5 mg PO DAILY November 25, 2020 12:00am ergocalciferol 94458 unt oral capsule (4 sources) Provitamin D2 Compound Start: 04-26-2015 take 1.25 mg by mouth every week vitamin D (ERGOCALCIFEROL) 1.25 MG (24344 UT) CAPS capsule Take 50,000 Units by mouth once a week 0 04/26/2015 Active Start: 04-26-2015 vitamin D (ERG OCALCIFEROL) 51998 UNITS CAPS capsule Indications: (SUN) once a week Indications: (SUN) 0 04/26/2015 Active famotidine 20 mg oral tablet (20 sources) Histamine-2 Receptor Antagonist Start: 12-22-2022 End: 07-03-2024 take 1 tablet by mouth twice daily famotidine (Pepcid) 20 MG tablet Take 1 tablet (20 mg) by mouth 2 times daily. 180 tablet 3 01/05/2024 Active Start: 11-03-2021 take 1 tablet by yeimi th in the morning famotidine (Pepcid) 20 MG tablet Take 1 tablet by mouth in the morning and 1 tablet before bedtime. 0 11/03/2021 Active Start: 07-06-2021 End: 07-06-2021 take 20 mg by mouth twice daily 20 mg, Oral, 2 TIMES D AILY, First dose on Mon07/06/21 at 2100, Until Discontinued Start: 10-23-2019 End: 12-22-2022 take 1 tablet by mouth once daily Famotidine 20 mg Tablet Active 20 mg PO DAILY November 25, 2020 12:00am Start: 10-09-2018 End: 10-09-2018 famotidine (PEPCID) tablet 2 0 mg End: 09-26-2022 take 1 tablet by mouth in the morning famotidine (Pepcid) 20 MG tablet Take 20 mg by mouth in the morning and 20 mg in the evening. 0 09/26/2022 Discontinued (Reorder) furosemide 80 mg oral tablet (3 sources) Loop Diuretic take 1 tablet by mouth once daily furosemide (LASIX) 80 MG tablet Take 80 mg by mouth daily 0 Active 1 ml hydrALAZINE hydrochloride 20 mg/ml injection (1 source) Arteriolar Vasodilator Start: 9 hydrALAZINE (APRESOLINE) injection 5 mg 4 ml labetalol hydrochloride 5 mg/ml cartridge (4 sources) beta-Adrenergic Javi Start: 9 labetalol (NORMODYNE;TRANDATE ) injection 5 mg take 1 tablet by mouth twice carla ly labetalol (NORMODYNE) 300 MG tablet Take 300 mg by mouth 2 times daily 0 Active Lactobacillus acidophilus (19 sources) Lactobacillus (P ROBIOTIC ACIDOPHILUS PO) Take by mouth daily. Active 10 ml lidocaine hydrochloride 10 mg/ml injection (1 source) Antiarrhythmic, Amide Local Anesthetic Start: 10-09-2018 End: 10-09-2018 lidocaine PF 1 % injection 1 mL 1 ml meperidine hydrochloride 25 mg/ml cartridge (1 source) Opioid Agonist Start: 10-09-2018 meperidine (DEMEROL) injection 12.5 mg metoprolol tartrate 50 mg oral tablet (20 sources) beta-Adrenergic Javi Start: 07-06-2021 End: 07-06-2021 50 mg, Oral, 2 TIMES DAILY, First dose on Mon07/06/21 at 1700, Until Discontinued Slow release product. Do not crush. Extended release can be cut in half. Start: 11-26-2020 End: 07-30-2024 metoprolol tartrate (Lopress or) 50 MG tablet TAKE 1 TABLET TWICE A DAY 180 tablet 1 07/12/2024 Active Start: 11-25-2020 End: 11-26-2020 take 1 capsule by mouth once daily Metoprolol Succinate 25 mg Capsule,Sprinkle,Er 24hr Discontinued 25 mg PO DAILY November 25, 2020 12:00am November 26, 2020 10:15am Start: 05-21-2020 take 1 tablet by yeimi once daily metoprolol succinate (TOPROL XL) 25 MG extended release tablet TAKE 1 TABLET BY MOUTH EVERY DAY 90 tablet 3 05/21/2020 Active Start: 10-23-2019 METOPROLOL SUC CINATE ER 25 MG [id number] 1 tablet daily METOPROLOL SUCCINATE [id number] Lynn Brice LPN End: 09-26-2022 take 1 tablet by mouth every twenty-four hours in the morning metoprolol succinate XL (Toprol-XL) 25 MG 24 hr tablet Take 50 mg by mouth in the morning and 50 mg in the evening. 0 09/26/2022 Discontinued (Therapy completed) take 2 tablets by mo [facility] twice daily metoprolol succinate 25 MG tablet XL Take 50 mg by mouth 2 times daily. 0 Active take 1 tablet by yeimi once daily Metoprolol Tartrate 25 MG Oral Tablet TAKE 1 TABLET DAILY. Quantity: 0 Refills: 0 Ordered: 08-Jul-2020 DO Active Multiple Vitamin (multivitamin) tablet (19 sources) take 1 tablet by mouth once daily Multiple Vitamin (multivitamin) tablet Take 1 tablet by mouth daily. Active Multiple Vitamins-Minerals (PRESERVISION AREDS 2 PO) (19 sources) Multiple Vitamins-Minerals (PRESERVISION AREDS 2 PO) Take by mouth daily. Active mycophenolate mofetil 500 mg oral tablet (13 sources) Start: 02-27-19 take 1 tablet by mouth twice daily mycophenolate (Cellcept) 500 MG tablet Take 500 mg by mouth 2 times daily. 02/28/2024 Active pantoprazole 40 mg delayed release oral tablet (4 sources) Proton Pump Inhibitor Start: 07-08-19 End: 07-07-19 pantopraz[address] tablet Indications: Prevention of esophageal injury after catheter ablation Take 1 tablet by mouth daily. Take for 1 month then stop 08/06/2021 30 tablet 0 07/07/2021 Active perflutren lipid microspheres (DEFINITY) injection 1.65 mg (1 source) Start: 11-24-19 End: 11-27-19 perflutren lipid microspheres (DEFINITY) injection 1.65 mg 1 ml promethazine hydrochloride 25 mg/ml injection (1 source) Phenothiazine Start: 10-10-19 End: 10-10-19 promethazine (PHENERGAN) injection 6.25 mg rivaroxaban 20 mg oral tablet (20 sources) Factor Xa Inhibitor Start: 01-27-20 End: 08-07-19 take 1 tablet by mouth at dinner rivaroxaban (Xarelto) 20 MG tablet Take 1 tablet (20 mg) by mouth with evening meal. 90 tablet 1 08/06/2024 Active Start: 02-02-2022 End: 07-28-2022 take 1 tablet by mouth at dinner Xarelto 20 MG tablet TAKE 1 TABLET BY MOUTH WITH EVENING MEAL 90 tablet 1 07/28/2022 Active take 1 tablet by yeimi th once daily at dinner Rivaroxaban 20 MG tablet Indications: Resume tonight around 9pm Take 20 mg by mouth daily with dinner. 0 Active sevelamer carbonate 800 mg oral tablet (4 sources) Phosphate Binder take 3 tablets by mouth three times daily at mealtime sevelamer (RENVELA) 800 MG tablet Take 3 tablets by mouth 3 times daily (with meals) 0 Active Completed/Discontinued Medications Medication Drug Class(es) Dates Sig (Normalized) Sig (Original) acetaminophen 325 mg oral tablet (2 sources) Start: 07-06-2021 End: 07-06-2021 take 1 tablet by mouth every six hours as needed acetaminophen (TYLENOL) tablet 325 mg Start: 10-09-2018 End: 10-09-2018 acetaminophen (TYLENOL) tabl et 1,000 mg 2 ml fentaNYL 0.05 mg/ml injection (3 sources) Opioid Agonist Start: 07-06-2021 End: 07-06-2021 fentaNYL (SUBLIMAZE) injection Start: 10-09-2018 fentaNYL (SUBL IMAZE) injection 25 mcg Start: 10-09-2018 fentaNYL (SUBL IMAZE) injection 50 mcg 1 ml HYDROmorphone hydrochloride 1 mg/ml cartridge (3 sources) Opioid Agonist Start: 07-06-2021 End: 07-06-2021 take 0.2 mg intravenously every two hours as needed HYDROmorphone (DILAUDID) injection 0.2 mg Start: 10-09-2018 HYDROmorphone (DILAUDID) injection 0.25 mg Start: 10-09-2018 HYDROmorphone (DILAUDID) injection 0.5 mg HYDROmorphone (DILAUDID) injection 0.2 mg (1 source) Start: 07-06-2021 End: 07-06-2021 HYDROmorphone (DILAUDID) injection 0.2 mg magnesium oxide 400 mg oral tablet (20 sources) Start: 07-06-2021 End: 07-06-2021 magnesium oxide (MAG-OX) tab let 800 mg Start: 11-25-2020 take 1 capsule by mo [facility] twice daily Magnesium Oxide 400 mg magnesium Capsule Active 400 mg PO TWICE A DAY November 25, 2020 12:00am Start: 10-23-2019 MAGNESIUM OXID E 400 (241.3 Mg) MG TABS 2 tablets every 12 hours MAGNESIUM OXIDE [id number] Lynn Brice MACHINE BUILDER Start: 08-23-2019 take 400 mg by mouth in the morning magnesium oxide (Mag-Ox) Take 400 mg by mouth in the morning and 400 mg in the evening. 08/23/2019 Active Start: 08-23-2019 [facility] oxide 400 (241.3 Mg) MG tablet Take 1 tablet by mouth 2 times daily. 60 tablet 11 08/23/2019 Active Magnesium Oxide 400 MG CAPS TAKE DIRECTED. Quantity: 0 Refills: 0 Ordered: 08-Jul-2020 DO Active 2 ml midazolam 1 mg/ml injection (2 sources) Benzodiazepine Start: 07-06-2021 End: 07-06-2021 midazolam (VERSED) injection Start: 10-09-2018 midazolam (WILSON SED) injection 2 mg mycophenolic acid 360 mg delayed release oral tablet (20 sources) Antimetabolite Immunosuppressant Start: 07-30-2021 End: 04-24-2024 take 1 tablet by mouth in the morning mycophenolate (Myfortic) 360 MG EC tablet Take 360 mg by mouth in the morning and 360 mg before bedtime. 07/30/2021 04/24/2024 Discontinued (Med list cleanup) Start: 11-25-2020 take 1 tablet by yeimi th twice daily Mycophenolate Sodium 360 mg tablet,delayed release (DR/EC) Active 360 mg PO TWICE A DAY November 25, 2020 12:00am Start: 11-17-2020 End: 07-06-2021 take 1 tablet by mouth every twelve hours mycophenolate sodium (generic) [address] tablet DR TAKE 1 TABLET BY MOUTH EVERY 12 HOURS. 60 tablet 6 11/17/2020 Active Start: 10-23-2019 MYCOPHENOLATE SODIUM 360 MG TBEC 2 tablets every 12 hours MYCOPHENOLATE SODIUM [id number] Lynn Brice LPN take 720 mg by mouth twice daily Mycophenolate Sodium 360 MG TBEC Take 720 mg by mouth 2 times daily 0 Active take 1 tablet by yeimi th twice daily Mycophenolate Sodium 360 MG Oral Tablet Delayed Release 1 po twice a day Quantity: 0 Refills: 0 Ordered: 08-Jul-2020 DO Active 2 ml ondansetron 2 mg/ml injection (3 sources) Serotonin-3 Receptor Antagonist Start: 07-06-2021 End: 07-06-2021 ondansetron 4mg/2ml (ZOFRAN) injection 4 mg Start: 10-09-2018 End: 10-09-2018 ondansetron (ZOFRAN) injecti on 4 mg oxyCODONE (2 sources) Opioid Agonist Start: 07-06-2021 End: 07-06-2021 take 1 tablet by mouth every four hours as needed oxyCODONE (ROXICODONE) tablet 5 mg Start: 10-09-2018 End: 10-09-2018 oxyCODONE (ROXICODONE) immed iate release tablet 5 mg perflutren lipid microsphere s (Definity) injection 1.65 mg (2 sources) Start: 03-22-2022 End: 03-22-2022 perflutren lipid microsphere s (Definity) injection 1.65 mg perflutren protein A microsp here (Optison) 3 mL in sodium chloride (PF) 0.9 % 10 mL IV syringe (2 sources) Start: 04-10-2023 End: 04-10-2023 perflutren protein A microsphere (Optison) 3 mL in sodium chloride (PF) 0.9 % 10 mL IV syringe microencapsulated potassium chloride 20 meq extended release oral tablet (2 sources) Start: 07-06-2021 End: 07-06-2021 potassium chloride (K-DUR) tablet ER 20 mEq Start: 07-06-2021 End: 07-06-2021 potassium chloride (K-DUR) t ablet ER 40-60 mEq pregabalin 75 mg oral capsule (1 source) Start: 10-23-2019 PREGABALIN 75 MG CAPS 1 capsule daily PREGABALIN [id number] Lynn Brice LPN rOPINIRole 0.25 mg oral tablet (5 sources) Nonergot Dopamine Agonist Start: 10-23-2019 ROPINIROLE HCL 0.25 MG TABS 2 tablets every 12 hours ROPINIROLE HCL [id number] Lynn Brice LPN take 1 tablet by mouth twice carla ly rOPINIRole (REQUIP) 0.25 MG tablet Take 0.25 mg by mouth 2 times daily 0 Active Sodium Chloride (6 sources) Start: 07-06-2021 End: 07-06-2021 sodium chloride 0.9% IV solu tion Start: 07-06-2021 End: 07-06-2021 sodium chloride 0.9% IV solu tion 500 mL Start: 07-06-2021 End: 07-06-2021 sodium chloride 0.9% IV solu tion Start: 10-09-2018 0.9 % sodium c hloride infusion Start: 10-09-2018 sodium chlorid e flush 0.9 % injection 10 mL sulfamethoxazole 800 mg / trimethoprim 160 mg oral tablet (3 sources) Dihydrofolate Reductase Inhibitor Antibacterial, Sulfonamide Antimicrobial Start: 10-23-2019 BACTRIM DS 800-160 MG TABS 1 tablet daily SULFAMETHOXAZOLE-TRIMETHOPRIM [id number] Lynn Brice LPN take 1 tablet by mouth once sulf amethoxazole-trimethoprim (BACTRIM DS;SEPTRA DS) 800-160 MG per tablet Take 1 tablet by mouth once 0 Active tacrolimus 1 mg oral capsule (20 sources) Calcineurin Inhibitor Immunosuppressant Start: 07-06-2021 End: 07-06-2021 take 1 mg by mouth every twelve hours 1 mg, Oral, EVERY 12 HOURS, First dose on Mon07/06/21 at 2100, Until Discontinued Do not split, break, crush, or open doses of this medication. Contact pharmacy if altered dose or route needed. Do not split, break, crush, or open doses of this medication. Contact pharmacy if altered dose or route needed. Start: 03-12-2021 take 1 capsule by mo uth every twelve hours tacrolimus (PROGRAF) 0.5 MG capsule TAKE 2 CAPSULES BY MOUTH EVERY 12 HOURS 120 capsule 8 03/12/2021 Active Start: 11-25-2020 take 1 capsule by mo [facility] twice daily Tacrolimus 0.5 mg capsule Active 0.5 mg PO TWICE A DAY November 25, 2020 12:00am Start: 03-03-2020 tacrolimus (Pr ograf) 0.5 MG capsule Take 1 mg by mouth 2 times daily. 1 mg and 1/2 at night 03/03/2020 Active Start: 03-03-2020 tacrolimus (Pr ograf) 0.5 MG capsule Take 1 mg by mouth. 0 03/03/2020 Active Start: 10-23-2019 TACROLIMUS 1 M G CAPS 2 capsules in the morning and 1 capsule at night TACROLIMUS [id number] Lynn Brice LPN take 1 capsule by mo ut[facility] twice daily Tacrolimus 0.5 MG Oral Capsule 1 po twice a day Quantity: 0 Refills: 0 Ordered: 08-Jul-2020 DO Active Problems Active Problems Problem Classification Problem Date Documented Da te Episodic/Chronic Acute and unspecified renal failure (2 sources) Chronic renal failure; Translations: [Chronic renal failure] Onset: 6 04-13-2015 Chronic Aortic; peripheral; and visceral artery aneurysms (20 sources) Dilatation of aortic sinus of Valsalva; Translations: [Dilatation of aorta] Onset: 9 11-06-2018 Chronic Cardiac and circulatory congenital anomalies (2 sources) Other congenital malformations of aorta; Translations: [Other congenital malformations of aorta] Onset: 2 Chronic Cardiac and circulatory congenital anomalies (1 source) H/O: cardiac anomaly; Translations: [Personal history of (corrected) congenital malformations of heart and circulatory system] Episodic Cardiac dysrhythmias (20 sources) Paroxysmal atrial fibrillation; Translations: [Paroxysmal atrial fibrillation] Onset: 0 10-28-2019 Chronic Cardiac dysrhythmias (4 sources) Palpitations; Translations: [Palpitations] Onset: 5 06-26-2024 Episodic Chronic kidney disease (20 sources) End stage renal failure on dialysis; Translations: [History of renal transplant] Onset: 7 04-13-2015 Chronic Chronic kidney disease (3 sources) Chronic renal insufficiency; Translations: [Chronic renal failure] Onset: 6 04-13-2015 Disorders of lipid metabolism (20 sources) Hyperlipidemia; Translations: [Hyperlipidemia, unspecified] Onset: 8 12-02-2021 Chronic Diverticulosis and diverticulitis (20 sources) Diverticular disease; Translations: [Diverticulosis of intestine, part unspecified, without perforation or abscess without bleeding] Onset: 4 09-29-2022 Chronic Esophageal disorders (20 sources) Gastroesophageal reflux disease; Translations: [Esophageal reflux] Onset: 0 10-28-2019 Chronic Essential hypertension (20 sources) Hypertensive disorder; Translations: [Essential hypertension] Onset: 6 05-04-2015 Chronic Gastrointestinal hemorrhage (1 source) Rectal hemorrhage; Translations: [Hemorrhage of rectum and anus] Episodic Genitourinary congenital anomalies (20 sources) Multiple renal cysts; Translations: [Polycystic kidney, unspecified type] Onset: 5 10-28-2019 Chronic Genitourinary symptoms and ill-defined conditions (2 sources) History of renal failure; Translations: [Personal history of other specified urinary system disorders] Episodic Gout and other crystal arthropathies (20 sources) Gout; Translations: [Gout, unspecified] Onset: 3 09-29-2022 Chronic Heart valve disorders (20 sources) Aortic valve regurgitation; Translations: [Aortic valve stenosis with insufficiency] Onset: 9 11-06-2018 Chronic Hemorrhoids (1 source) Hemorrhoids; Translations: [Unspecified hemorrhoids without mention of complication] Episodic Immunity disorders (3 sources) Immunosuppression; Translations: [Immunodeficiency, unspecified] Onset: 2 Chronic Immunizations and screening for infectious disease (2 sources) Encounter for immunization; Translations: [ENCOUNTER FOR IMMUNIZATION] Onset: 1 Episodic Other aftercare (1 source) Transplant follow-up; Translations: [Encounter for aftercare following other organ transplant] Chronic Other aftercare (2 sources) Encounter for aftercare following other organ transplant; Translations: [Encounter for aftercare following other organ transplant] Onset: 2 Chronic Other aftercare (10 sources) Long-term current use of anticoagulant; Translations: [Long-term (current) use of anticoagulants] Onset: 5 05-13-2024 Episodic Other aftercare (1 source) Taking high risk medication; Translations: [Other customer counter associate (current) drug therapy] Episodic Other aftercare (2 sources) long-term (current) use of anticoagulants; Translations: [long-term (current) use of anticoagulants] Onset: 5 Episodic Other and unspecified benign neoplasm (2 sources) History of polyp of colon; Translations: [Personal history of colonic polyps] Episodic Other circulatory disease (1 source) H/O: atrial fibrillation; Translations: [Personal history of other diseases of circulatory system] Episodic Other circulatory disease (1 source) H/O: hypertension; Translations: [Personal history of other diseases of circulatory system] Episodic Other gastrointestinal disorders (1 source) Loose stool; Translations: [Abnormal feces] Episodic Other gastrointestinal disorders (1 source) Dysphagia; Translations: [Dysphagia, unspecified] Episodic Other gastrointestinal disorders (1 source) History of gastroesophageal reflux disease; Translations: [Personal history of other diseases of digestive system] Episodic Other hereditary and degenerative nervous system conditions (20 sources) Restless legs; Translations: [Restless legs syndrome] Onset: 0 10-28-2019 Chronic Other nervous system disorders (2 sources) H/O: Disorder; Translations: [Personal history of other disorders of nervous system and sense organs] Episodic Other nutritional; endocrine; and metabolic disorders (20 sources) Obese class I; Translations: [Obesity, unspecified] Onset: 8 08-01-2019 Chronic Other nutritional; endocrine; and metabolic disorders (20 sources) Body mass index 30+ - obesity; Translations: [Body mass index (BMI) 36.0-36.9, adult] Onset: 3 09-29-2022 Chronic Other screening for suspected conditions (not mental disorders or infectious disease) (14 sources) Blood chemistry abnormal; Translations: [Abnormal finding of blood chemistry, unspecified] Onset: 2 Episodic Other upper respiratory infections (3 sources) Viral upper respiratory tract infection; Translations: [Acute upper respiratory infection, unspecified] Onset: 5 05-13-2024 Episodic Residual codes; unclassified (4 sources) Awaiting transplantation of kidney; Translations: [Awaiting organ transplant status] Onset: 0 08-01-2019 Chronic Unclassified (2 sources) Blood Pressure Check; Translations: [Blood Pressure Check] Onset: 5 Viral infection (1 source) COVID-19; Translations: [COVID-19 virus detected] Episodic Comment on above: 12/2019; Past or Other Problems Problem Classification Problem Date Documented Date Episodic/Chronic Complication of device; implant or graft (10 sources) Mechanical complication of peritoneal dialysis catheter; Translations: [Peritonitis due to infected peritoneal dialysis catheter] Onset: 07-20-2018 Resolved: 05-21-2020 07-20-2018 Episodic Heart valve disorders (1 source) Cardiac murmur, intensity grade III/; Translations: [Grade 3 out of 6 intensity murmur] Episodic Nonspecific chest pain (3 sources) Chest pain; Translations: [Chest pain, unspecified] Onset: 04-24-2024 04-24-2024 Episodic Other aftercare (2 sources) Other snf (current) drug therapy; Translations: [Other customer counter associate (current) drug therapy] Onset: 08-16-2021 Episodic Other connective tissue disease (1 source) Complete rotator cuff tear or rupture of right shoulder, not specified as traumatic; Translations: [Complete rotator cuff tear or rupture of right shoulder, not specified as traumatic] Onset: 10-25-2019 10-25-2019 Episodic Other connective tissue disease (1 source) Impingement syndrome of shoulder region; Translations: [Impingement syndrome of right shoulder] Onset: 10-25-2019 10-25-2019 Episodic Residual codes; unclassified (2 sources) Other general symptoms and signs; Translations: [Other general symptoms and signs] Onset: 02-15-2021 Episodic Residual codes; unclassified (20 sources) Other specified health status; Translations: [Other drug allergy] Onset: 09-26-2022 09-26-2022 Episodic Residual codes; unclassified (20 sources) History of colonoscopy; Translations: [Other specified postprocedural states] Onset: 08-06-2020 09-29-2022 Episodic Unclassified (1 source) Problem Results Test Name Value Interpretation Reference Range Facility 36on 08-06-2024 36 Medication name: juan lapril (Vasotec) 10 MG tablet Medication dosage: 10 mg (Miligrams Monthly quantity needed: 30 How many day supply requestin days Medication route: oral (PO) Medication administration time(s): daily If taking medication PRN, reason for taking medication: N/A If this is a controlled substance do you receive this or any other controlled medication from any other doctor or facility: N/A Ordering provider: Dr. Beasley Date of last office visit: 06/07/24 Date of next office visit: 11/12/24 Date of last refill: (see medication tab): 05/13/24 Updated/Validated preferred pharmacy: Yes Patient instructed to contact the pharmacy prior to picking up the medication: n/a [facility] 36 Patient called, and requested refill of Xarelto to be sent to [facility]. [facility] 36on 07-12-2024 36 Recent Visits Date Type Provider Dept 05/13/24 Office Visit Minor Beasley DO [facility] 11/27/23 Office Visit Minor Beasley DO [facility] Showing recent visits within past 365 days and meeting all other requirements Future Appointments No visits were found meeting these conditions. Showing future appointments within next 90 days and meeting all other requirements Requested Prescriptions Pending Prescriptions Disp Refills metoprolol tartrate (Lopressor) 50 MG tablet [Pharmacy Med Name: METOPROLOL TARTRATE TABS 50MG] 180 tablet 1 Sig: TAKE 1 TABLET TWICE A DAY Provider: Minor Beasley DO Verified pharmacy: yes Verified day(s) supplied: yes Verified refill(s) needed (previous prescription showing no refills in chart): Yes Have you received any controlled medications from any other provider? N/A Overdue for visit: N/A If yes - patient scheduled? N/A Most recent labs completed in chart? N/A None Normal [facility] Office Visiton 06-26-2024 Follow-up visit [id number] Edmond Lama 1960 M Date Provider Department Center 06/26/2024 [id number] MESSINA [facility] [place] None Family History Problem Relation Age of Onset Cerebral aneurysm Mother Comments: at age 55 Diabetes Father Dementia Father Comments: at age 82 No Known Problems Sister No Known Problems Brother No Known Problems Brother Other Maternal Grandmother Comments: age 80 Cancer Maternal Grandfather Comments: ? Type Other Paternal Grandmother Comments: in mid 70s Dementia Paternal Grandfather Comments: age 79 Family Status - Relation Status Age at Mother Father Sister Brother Brother Alive Maternal Grandmother Maternal Grandfather Paternal Grandmother Paternal Grandfather Level of Service:05104 MT OFFICE/OUTPATIENT ESTABLISHED HIGH MDM 40 MIN Reason for Visit and Comments: Follow-up [491266] - 2 Month Atrial Fibrillation [80] Other [0] - Aortic Root Aneursym Normal [facility] Progress Noteon 06-26-2024 Progress Note [facility] Cardiology Note Visit type: New Chief Complaint: No chief complaint on file. History of Present Illness: Edmond Lama is a 64 y.o. 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 He has a history of aortic aneurysm and moderate aortic regurgitation. He is here for a routine follow-up. He had routine echocardiogram completed 04/16/24 which noting aortic regurgitation moderate-severe,preserved LVEF. Aortic root 4.6 cm. He tells me that when he saw Regi Zhao couple of months ago he was having some heartburn that has resolved with PPI. He denies chest pain pressure or heaviness. He denies shortness of breath orthopnea or PND. He has no exertional angina. Past Medical History: Past Medical History: Diagnosis Date Anticoagulant long-term use 06/2021 Xarelto Aortic insufficiency 11/06/2018 moderate to severe 04/30 ECHO- Dr. 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 Elizabeth- due 5-10 yrs History of renal transplant 1996 and 2019 Hyperlipidemia 08/01/2017 statin intolerance- defers rx Hypertension 05/04/2015 PAF (paroxysmal atrial fibrillation) ([facility]) 10/28/2019 s/p ablation 06/27 at [facility], nml LVEF 04/30 Polycystic kidney disease 1994 Prostate cancer screening 05/2024 lab only Statin intolerance Past Surgical History Past Surgical History: Procedure Laterality Date CARDIAC ABLATION P ROCEDURE (HISTORICAL) 06/2021 at [facility] for At Fib CHOLECYSTECTOMY 1999 COLONOSCOPY W/ POLYPECTOMY 2012 Dr Reis-small polyp COLONOSCOPY W/ POLYPECTOMY 08/2020 Dr Reis-small polyp-due 5-10 yrs HX AV GRAFT CREATION Left 10/09/2018 [place] OTHER SURGICAL HISTORY exp lap for abd lymphocele drainage OTHER SURGICAL HISTORY 10/08/2015 Laparoscopic peritoneal dialysis catheter placement-Dr Arshad OTHER SURGICAL HISTORY 07/22/2018 Removal peritoneal dialysis catheter at [facility] TONSILLECTOMY 1965 TRANSPLANT, KIDNEY, OPEN 1996 [facility] TRANSPLANT, KIDNEY, OPEN 07/2019 [facility] UPPER GASTROINTESTINAL ENDOSCOPY 08/2020 Dr Reis-mild GERD VENTRAL HERNIA REPAIR 2014 Family History Family History Problem Relation Name Age of Onset Cerebral aneurysm Mother at age 55 Diabetes Father Dementia Father at age 82 No Known Problems Sister Pilar No Known Problems Brother Arjun No Known Problems Brother Scot Other Maternal Grandmother age 80 Cancer Maternal Grandfather ? Type Other Paternal Grandmother in mid 70s Dementia Paternal Grandfather age 79 Social History Social History Tobacco Use Smoking status: Never Smokeless tobacco: Never Vaping Use Vaping status: Never Used Substance Use Topics Alcohol use: Never Drug use: Never Comment: Caffiene: Rare Allergies: Allergies Allergen Reactions Statins Other Muscle weakness Back pain Nickel When he gets anatn-red, inflamed Medications: Current Outpatient Medications: enalapril (Vasotec) 10 MG tablet, Take 1 tablet (10 mg) by mouth daily for 90 doses., Disp: 90 tablet, Rfl: 1 famotidine (Pepcid) 20 MG tablet, Take 1 tablet (20 mg) by mouth 2 times daily., Disp: 180 tablet, Rfl: 3 Lactobacillus (PROBIOTIC ACIDOPHILUS PO), Take by mouth daily., Disp: , Rfl: magnesium oxide (Mag-Ox), Take 400 mg by mouth in the morning and 400 mg in the evening., Disp: , Rfl: metoprolol tartrate (Lopressor) 50 MG tablet, Take 1 tablet (50 mg) by mouth 2 times daily., Disp: 180 tablet, Rfl: 1 Multiple Vitamin (multivitamin) tablet, Take 1 tablet by mouth daily., Disp: , Rfl: Multiple Vitamins-Minerals (PRESERVISION AREDS 2 PO), Take by mouth daily., Disp: , Rfl: mycophenolate (Cellcept) 500 MG tablet, Take 500 mg by mouth 2 times daily., Disp: , Rfl: tacrolimus (Prograf) 0.5 MG capsule, Take 1 mg by mouth 2 times daily. 1 mg and 1/2 at night, Disp: , Rfl: Xarelto 20 MG tablet, TAKE 1 TABLET BY MOUTH EVERY DAY WITH EVENING MEAL., Disp: 90 tablet, Rfl: 1 Review of Systems: Review of Systems Constitutional: Negative for activity change, chills, diaphoresis, fatigue and fever. HENT: Negative for nosebleeds and trouble swallowing. Eyes: Negative for discharge and visual disturbance. Respiratory: Negative for apnea, cough, chest tightness, shortness of breath and wheezing. Cardiovascular: N (more content not included)... Normal [facility] Progress Noteon 06-07-2024 Progress Note Sent MyChart message Normal [facility] Progress Note The patient, Edmond Lama, identity was verified by name and . Supervising provider for clinic visit: Dr. Minor Beasley Chief Complaint Patient presents with Blood Pressure Check Reason for visit: Elevated BP Reading at last visit Edmond Lama has validated current medications Patient states compliant with medications as written: Yes BP medication taken prior to this visit? Yes Are you having any symptoms? No Current Blood Pressure:127/62 Current Heart Rate:52 Did Blood Pressure need rechecked: no Second Blood Pressure Reading: Second Heart Rate: Assessment/Plan: Edmond was seen today for blood pressure check. Diagnoses and all orders for this visit: Primary hypertension normal Future Appointments Date Time Provider Department Center 06/07/2024 9:00 AM SCHEDULE, [facility] 06/26/2024 2:20 PM Ace Messina MD [facility] [place] None 11/12/2024 8:20 AM Minor Beasley DO [facility] Cc'd provider blood pressure readings? Yes [facility] Progress Note Blood pressure stabl e, no med changes necessary [facility] 36on 05-27-2024 36 Patient rescheduled for 06/07/24 at 9:00AM [facility] 36 Name of Caller: alysa baker Contact Reason for Appointment: Pt requesting to be rescheduled for the following week for his nurse visit on 06/10. Please advise. Office Name: [facility] Medication Refills need, if any: / Medication Name: / Normal [facility] 37on 05-13-2024 37 Rech BP 4 wks [facility] Office Visiton 05-13-2024 Follow-up visit [id number] Edmond Lama 1960 M Date Provider Department Center 05/13/2024 [id number] BEASLEY [facility] Family History Problem Relation Age of Onset Cerebral aneurysm Mother Comments: at age 55 Diabetes Father Dementia Father Comments: at age 82 No Known Problems Sister No Known Problems Brother No Known Problems Brother Other Maternal Grandmother Comments: age 80 Cancer Maternal Grandfather Comments: ? Type Other Paternal Grandmother Comments: in mid 70s Dementia Paternal Grandfather Comments: age 79 Family Status - Relation Status Age at Mother Father Sister Brother Brother Alive Maternal Grandmother Maternal Grandfather Paternal Grandmother Paternal Grandfather Level of Service:79399 MT OFFICE/OUTPATIENT ESTABLISHED MOD MDM 30 MIN Reason for Visit and Comments: 6 Month Follow-up [671] Normal [facility] Progress Noteon 05-13-2024 Progress Note [facility] [address] [facility] [id number] Visit type: Established Patient Reason for Visit: 6 Month Follow-up Assessment / Plan: Edmond was seen today for 6 month follow-up. Diagnoses and all orders for this visit: Primary hypertension (Primary) Comments: Increase Vasotec to 10 mg daily, continue metoprolol and BP check 4 weeks Gout, unspecified cause, unspecified chronicity, unspecified site Prostate cancer screening - PSA Total (Screening); Future - PSA Total (Screening) Polycystic kidney disease Viral URI Comments: Acute, improving, discussed red flags Aortic valve insufficiency, etiology of cardiac valve disease unspecified Comments: Moderately severe, follow-up with cardiology possible sleep study PAF (paroxysmal atrial fibrillation) (HCC) Comments: Stable on metoprolol and Xarelto Chronic anticoagulation History of renal transplant Comments: Stable, creatinine 1.2, goal BP less than 130 systolic? Follow-up with nephrology Other orders - enalapril (Vasotec) 10 MG tablet; Take 1 tablet (10 mg) by mouth daily for 90 doses. Subjective: Patient ID: Edmond Lama is a 64 y.o. male. HPI non-smoker with history of polycystic kidney disease and status post second renal transplant presents for overall checkup but having a mild rhinorrhea and cough. No fever or substantial sore throat. No purulent phlegm chest pain or shortness of breath. Symptoms are resolving. Recent nephrology lab is stable. Had echocardiogram recently has moderate severe aortic regurgitation but no impaired left ventricular function. On Xarelto for paroxysmal atrial fibs. Last EKG sinus rhythm Review of Systems denies palpitations PND orthopnea or change in mild leg edema. Denies excessive's daytime sedation or snoring. No family history of sleep apnea. No change in bowels. Colonoscopy due next year. No black or bloody stools. No constipation diarrhea. Rare nocturia. He is due for SHAYNA and PSA. No new arthralgias. No recent gout flareup. Of note he does not smoke or drink Allergies Allergen Reactions Statins Other Muscle weakness Back pain Nickel When he gets anant-red, inflamed Current Outpatient Medications on File Prior to Visit Medication Sig Dispense Refill famotidine (Pepcid) 20 MG tablet Take 1 tablet (20 mg) by mouth 2 times daily. 180 tablet 3 Lactobacillus (PROBIOTIC ACIDOPHILUS PO) Take by mouth daily. magnesium oxide (Mag-Ox) Take 400 mg by mouth in the morning and 400 mg in the evening. metoprolol tartrate (Lopressor) 50 MG tablet Take 1 tablet (50 mg) by mouth 2 times daily. 180 tablet 1 Multiple Vitamin (multivitamin) tablet Take 1 tablet by mouth daily. Multiple Vitamins-Minerals (PRESERVISION AREDS 2 PO) Take by mouth daily. mycophenolate (Cellcept) 500 MG tablet Take 500 mg by mouth 2 times daily. tacrolimus (Prograf) 0.5 MG capsule Take 1 mg by mouth 2 times daily. 1 mg and 1/2 at night Xarelto 20 MG tablet TAKE 1 TABLET BY MOUTH EVERY DAY WITH EVENING MEAL. 90 tablet 1 [DISCONTINUED] enalapril (Vasotec) 5 MG tablet Take 1 tablet (5 mg) by mouth daily. 90 tablet 1 No current facility-administered medications on file prior to visit. Patient Active Problem List Diagnosis Polycystic kidney disease RLS (restless legs syndrome) Gastroesophageal reflux disease without esophagitis PAF (paroxysmal atrial fibrillation) ([facility]) Hypertension History of renal transplant Dilatation of aortic sinus of Valsalva CRF (chronic renal failure) Aortic insufficiency Hyperlipidemia ESRD on dialysis ([facility]) Class 1 obesity ADPKD (autosomal dominant polycystic kidney disease) Statin intolerance Diverticulosis Gout H/O colonoscopy with polypectomy BMI 36.0-36.9,adult Chronic anticoagulation Social History Tobacco Use Smoking status: Never Smokeless tobacco: Never Substance Use Topics Alcohol use: Never Past Surgical History: Procedure Laterality Date CARDIAC ABLATION P ROCEDURE (HISTORICAL) 06/2021 at [facility] for At Fib CHOLECYSTECTOMY 1999 COLONOSCOPY W/ POLYPECTOMY 2012 Dr Reis-small polyp COLONOSCOPY W/ POLYPECTOMY 08/2020 Dr Reis-small polyp-due 5-10 yrs HX AV GRAFT CREATION Left 10/09/2018 [place] OTHER SURGICAL HISTORY exp lap for abd lymphocele drainage OTHER SURGICAL HISTORY 10/08/2015 Laparoscopic peritoneal dialysis catheter placement-Dr Arshad OTHER SURGICAL HISTORY 07/22/2018 Removal peritoneal dialysis catheter at [facility] TONSILLECTOMY 1965 TRANSPLANT, KIDNEY, OPEN 1996 [facility] TRANSPLANT, KIDNEY, OPEN 07/2019 [facility] UPPER GASTROINTESTINAL ENDOSCOPY 08/2020 Dr Reis-mild GERD VENTRAL HERNIA REPAIR 2013 Family History Problem Relation Name Age of Onset Cerebral aneurysm Mother at age 55 Diabetes Father Dementia Father at age 82 No Known Problems Sister Pilar No Known Problems Brother Arjun No Known Problems Broth (more content not included)... [facility] 05-09-2024 I called and spoke mandi Garcia checking to see how is doing-he tells me he is feeling great-no chest pressure. We will have him keep f/up with Dr Messina in June, if any symptoms, please call and we can plan to arrange testing sooner. He was thankful for the call. [place] [id number] I called and LMOM as taylor patient to give me a call back to discuss if any further symptoms. If so, we will order testing. If not, we will have him keep f/up with Dr Messina in June. Left number for office. [place] [id number] I called and spoke mandi Garcia; he was actually on a flight to [place] yesterday; he will be there through the weekend and return next week. He reports he is doing well; reports no recurrence of chest pressure or any other symptoms. He has been taking his Pepcid twice daily. I let him know we talked with Dr Grayson's office and he said it would be okay for contrast dye; just would need to give him a litter of IV Fluids prior to scan. I let him know I will discuss further testing with Regi; since he is on vacation, will plan to call him back next week with an update. He was thankful for the call. [place] [id number] 36 LM requesting a call back to discuss pt's symptoms and need for further testing. [address] 04-26-[address] Patti horan ch atted today and reports ok for MRI and if needing to use dye for CT recommends giving 1 liter of IVF prior to scan. [facility] 36 JUAN Mcwilliams called back from Dr Grayson's office asking for more information; I explained about echocardiogram with aortic regurgitation and technically limited imaging and patient reports chest pressure; I relayed question from Regi, relaying if contrast for coronary CTA could be used and also, if gadolinium would be okay for cardiac MRI considering patient history of multiple renal transplants/renal issues? She reports she will review this further and talk with Dr Grayson and will get back to me, likely later today. Given callback number/best way to reach me today. Normal [facility] 36 I called and spoke t o Dr Grayson's financial secretary; MA is busy right now, but they will have her call back to further discuss patietn's situation/what types of dye can be used for cardiac testing. Normal [facility] 36 ----- Message from MICHAEL Saldana CNP sent at 04/26/2024 8:24 AM EDT ----- Please call grocery sacker and see if would be ok to do these studies with dye. ----- Message ----- From: Ace Messina MD Sent: 04/25/2024 9:26 AM EDT To: MICHAEL Delarosa CNP I am thinking in terms of CAD related heart burn? Coronary CTA would be an option.. Would have to reach out to his grocery sacker if its ok to use contrast for coronary CTA as well as gadolinium for MRI. If they say it should be ok then we should probably go ahead and start with coronary CTA first. Thanks FS ----- Message ----- From: MICHAEL Delarosa CNP Sent: 04/24/2024 4:28 PM EDT To: Ace Messina MD See my note. I think this is GERD related. If not, do you want me to order an MRI? Normal [facility] ECG 12 leadon 04-24-2024 Sinus Bradycardia WITHIN NORMAL LIMITS [facility] ECG 12 leadOrdered By: Viky England on 04-24-2024 [facility] [employer] Work Phone: Office Visiton 04-24-2024 Follow-up visit [id number] Edmond Lama 1960 M Date Provider Department Center 04/24/2024 [id number] ZHAO [facility] None Family History Problem Relation Age of Onset Cerebral aneurysm Mother Comments: at age 55 Diabetes Father Dementia Father Comments: at age 82 No Known Problems Sister No Known Problems Brother No Known Problems Brother Other Maternal Grandmother Comments: age 80 Cancer Maternal Grandfather Other Paternal Grandmother Comments: in mid 70s Dementia Paternal Grandfather Comments: age 79 Family Status - Relation Status Age at Mother Father Sister Brother Brother Alive Maternal Grandmother Maternal Grandfather Paternal Grandmother Paternal Grandfather Level of Service:70660 MT OFFICE/OUTPATIENT ESTABLISHED MOD MDM 30 MIN Reason for Visit and Comments: Chest Pain [[id number]] [facility] 04-24-2024 Progress Note [facility] [employer] [facility] Cardiology Note Visit type: Established Chief Complaint: Chief Complaint Patient presents with Chest Pain History of Present Illness: Edmond Lama is a 64 y.o. 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 He has a history of aortic aneurysm and moderate aortic regurgitation. He is here for a routine follow-up. Was doing well when last seen by Dr. Messina back in December. Had a follow up echo that showed normal LV function. Aortic regurgitration is moderate-severe. No significant stenosis. Aorta is stable. Aortic root 4.6 cm, ascending aorta 4.0 cm. He comes in for an urgent scheduled visit and reports that for the past 4-6 weeks he has been getting chest pressure (left side). No radiation of symptoms. Feels like it goes down the left side and down into his rib cage. His reports that they exercise and does life some weights but doesn't overdo it. He walks on the treadmill, does a rowing machine. No symptoms when he does activity. No recent injuries. Denies palpitations/fluttering. No orthopnea. No syncope or dizziness or lightheadedness. Trace amount of edema in his lower extremities. No history of heart catheterization. I questioned him about having any gastric reflux symptoms. He reports that it might be reflux. His big triggers for reflux are tomato based items, ice cream, chocolate. His does report that he has been eating those most recently. He does report that sometimes he gets some fluid/reflux that comes up on him during the nighttime. Not able to lay on his left side at night due to should issues. Laying on his left side may help some issues with reflux symptoms. No reproducible chest discomfort on examination. EKG is normal and without any acute changes. No current complaints while in office today. Past Medical History: Past Medical History: Diagnosis Date Anticoagulant long-term use 06/2021 Xarelto Aortic insufficiency 11/06/2018 Mild Aortic stenosis 2023 Dr. Messina BMI 36.0-36.9,adult COVID-19 12/2019 CRF (chronic renal failure) 1996 polycystic kidney ds- transplant 2000 and 07/2019 Dilatation of aortic sinus of Valsalva 11/06/2018 Diverticulosis 2013 ESRD on dialysis ([facility]) 08/01/2017 LUE shunt- stopped 07/26 with second transplant Gastroesophageal reflux disease without esophagitis 10/28/201908/26 EGD per Smiley Liu H/O colonoscopy with polypectomy 08/2020 Dr. Elizabeth- due 5-10 yrs History of renal transplant 07/2019 and 2000 Hyperlipidemia 08/01/2017 statin intolerance- defers rx Hypertension 05/04/2015 PAF (paroxysmal atrial fibrillation) ([facility]) 10/28/2019 s/p ablation 06/27 at [facility] Polycystic kidney disease 1994 Prostate cancer screening 04/2023 Statin intolerance Past Surgical History Past Surgical History: Procedure Laterality Date CARDIAC ABLATION P ROCEDURE (HISTORICAL) 06/2021 at [facility] for At Fib CHOLECYSTECTOMY [address] Reis-small polyp COLONOSCOPY W/ POLYPECTOMY 08/2020 Dr Reis-small polyp-due 5-10 yrs HX AV GRAFT CREATION Left 10/09/2018 [place] OTHER SURGICAL HISTORY exp lap for abd lymphocele drainage OTHER SURGICAL HISTORY 10/08/2015 Laparoscopic peritoneal dialysis catheter placement-Dr Arshad OTHER SURGICAL HISTORY 07/22/2018 Removal peritoneal dialysis catheter at [facility] TONSILLECTOMY 1965 TRANSPLANT, KIDNEY, OPEN 1996 [facility] TRANSPLANT, KIDNEY, OPEN 07/2019 [facility] UPPER GASTROINTESTINAL ENDOSCOPY 08/2020 Dr Reis-mild GERD VENTRAL HERNIA REPAIR 2013 Family History Family History Problem Relation Name Age of Onset Cerebral aneurysm Mother at age 55 Diabetes Father Dementia Father at age 82 No Known Problems Sister Pilar No Known Problems Brother Arjun No Known Problems Brother Scot Other Maternal Grandmother age 80 Cancer Maternal Grandfather Other Paternal Grandmother in mid 70s Dementia Paternal Grandfather age 79 Social History Social History Tobacco Use Smoking status: Never Smokeless tobacco: Never Vaping Use Vaping status: Never Used Substance Use Topics Alcohol use: Never Drug use: Never Comment: Caffiene: Rare Allergies: Allergies Allergen Reactions Statins Other Muscle weakness Back pain Nickel When he gets anant-red, inflamed Medications: Current Outpatient Medications: enalapril (Vasotec) 5 MG tablet, Take 1 tablet (5 mg) by mouth daily., Disp: 90 tablet, Rfl: 1 famotidine (Pepcid) 20 MG tablet, Take 1 tablet (20 mg) by mouth 2 times daily., Disp: 180 tablet, Rfl: 3 Lactobacillus (PROBIOTIC ACIDOPHILUS PO), Take by mouth daily., Disp: , Rfl: magnesium oxide (Mag-Ox), Take 400 mg by mouth in the morning and 400 mg in the evening., Disp: , Rfl: metoprolol ta (more content not included)... [place] [id number] 04-19-2024 36 Noted; thank you. [place] [id number] Noted; thank you. [place] [id number] I called and spoke mandi Garcia relaying echocardiogram result note from Dr Messina. He verbalized understanding. He reports he recently had labs with nephrolog at [place]; Dr Grayson and Cr was 1.2-we will request these. He denies shortness of breath, dizziness, palpitations, syncope. He reports chest pain once in awhile at rest; lasts about 5 minutes. He denies any other symptoms. I let him know I would reach out to Dr Messina for further advice. He was thankful for the call. [facility] 36on 04-17-2024 36 I called and LMOM re laying I was calling to go over echo results. Please give me a call back to discuss-left callback number for office. [facility] 36 ----- Message from Lynn Messina MD sent at 04/17/2024 11:02 AM EDT ----- Fred Jack Please let patient know that his lv function seems to be fine. 62%. Aortic regurgitration is moderate-severe. No significant stenosis. Aorta is stable. Aortic root 4.6 cm, ascending aorta 4.0 cm. We could do an mri to further assess this but MR uses gadolinium and I believe he has had renal transplant? No recent Cr and so I am hesitant to order that. He was asymptomatic.\ We could opt for seeing him in 6 months and repeat TTE. If symptoms, he should let us know Normal [facility] [employer] [facility] US Heart TransthoracicOrdere d By: Philomena Wu on 04-16-2024 Aortic Arch 3.9 cm [facility] Work Phone: [phone] Aortic Sinus Valsalva 4.6 cm [facility] Work Phone: [phone] Aortic Sinus Valsalva Index 2.04 cm/m2 [facility] Work Phone: [phone] Aortic valve Mean systole pressure gradient by US.doppler derived full Bernoulli 21 mmHg [facility] Work Phone: [phone] Aortic valve Orifice area by US 3.8 cm2 [facility] Work Phone: [phone] Aortic valve Peak systolic flow by US.doppler 2.1 m/s [facility] Work Phone: [phone] AR Max Velocity PISA 4.3 m/s [facility] Work Phone: [phone] AR PHT 644.2 ms [facility] Work Phone: [phone] Ascending A[facility] 4 [facility] Work Phone: [phone] Ascending Aorta Index 1.77 cm/m2 [facility] Work Phone: [phone] AV Area by Peak Velocity 1.5 cm2 [facility] Work Phone: [phone] AV Area by VTI 1.6 cm2 [facility] Work Phone: AV Peak Gradient 36 mmHg [facility] Work Phone: [phone] AV Peak Velocity 3 m/s [facility] Work Phone: AV Velocity Ratio 0.4 [facility] Work Phone: [phone] AV VTI 73.3 cm [facility] Work Phone: [phone] CELINA/BSA Peak Velocity 0.7 cm2/m2 [facility] Work Phone: CELINA/BSA VTI 0.7 cm2/m2 [facility] [employer] Work Phone: [phone] Est. RA Pressure 3 mmHg [facility] Work Phone: Fractional Shortening 2D 43 % 28 - 44 % [facility] [employer] Work Phone: [phone] Interpretation and review of laboratory results Abnormal [facility] [employer] Work Phone: [phone] IVC Diameter 1.4 cm [facility] [employer] Work Phone: [phone] IVSd 1.2 cm Abnormal 0.6 - 1.0 cm [facility] [employer] Work Phone: [phone] LA Diameter 4.8 cm [facility] [employer] Phone: [phone] LA Size Index 2.12 cm/m2 [facility] [employer] Work Phone: [phone] LA Volume 2C 77 mL Abnormal 18 - 58 mL [facility] [employer] Phone: [phone] LA Volume 4C 78 mL Abnormal 18 - 58 mL [facility] [employer] Work Phone: [phone] LA Volume A/L 85 mL [facility] [employer] Work Phone: [phone] LA Volume BP 80 mL Abnormal 18 - 58 mL [facility] [employer] Phone: [phone] LA Volume Index 2C 34 mL/m2 16 - 34 mL/m2 [facility] [employer] Phone: LA Volume Index 4C 35 mL/m2 Abnormal 16 - 34 mL/m2 [facility] [employer] Phone: [phone] LA Volume Index A/L 38 mL/m2 16 - 34 mL/m2 [facility] [employer] Work Phone: [phone] LA Volume Index BP 35 ml/m2 Abnormal 16 - 34 ml/m2 [facility] [employer] Phone: [phone] Left ventricular Ejection fraction by US.2D+Calculated by biplane method of disks 62 % 55 - 100 % [facility] [employer] Phone: LV E' Lateral Velocity 3 cm/s [facility] [employer] Work Phone: [phone] LV E' Septal Velocity 4 cm/s [facility] [employer] Work Phone: [phone] LV EDV A2C 223 mL [facility] Work Phone: [phone] LV EDV A4C 173 mL [facility] Work Phone: LV EDV BP 208 mL Abnormal 67 - 155 mL [facility] Work Phone: [phone] LV EDV Index A2C 99 mL/m2 [facility] Work Phone: LV EDV Index A4C 77 mL/m2 [facility] Work Phone: LV EDV Index BP 92 mL/m2 [facility] Work Phone: LV Ejection Fraction A2C 66 % [facility] Work Phone: LV Ejection Fraction A4C 61 % [facility] Work Phone: LV ESV A2C 76 mL [facility] Work Phone: LV ESV A4C 67 mL [facility] Work Phone: LV ESV BP 79 mL Abnormal 22 - 58 mL [facility] Work Phone: LV ESV Index A2C 34 mL/m2 [facility] Work Phone: LV ESV Index A4C 30 mL/m2 [facility] Work Phone: LV ESV Index BP 35 mL/m2 [facility] Work Phone: LV Mass 2D 249.3 g Abnormal 88 - 224 g [facility] Work Phone: LV Mass 2D Index 110.3 g/m2 49 - 115 g/m2 [facility] Work Phone: LV RWT Ratio 0.36 [facility] Work Phone: [phone] LVIDd 5.6 cm 4.2 - 5.9 cm [facility] Work Phone: LVIDd Index 2.48 cm/m2 [facility] Work Phone: LVIDs 3.2 cm [facility] Work Phone: LVIDs Index 1.42 cm/m2 [facility] Work Phone: LVOT Cardiac Output 5.8 liter/mi nu te [facility] Work Phone: LVOT Diameter 2.2 cm [facility] Work Phone: LVOT Mean Gradient 3 mmHg [facility] Work Phone: LVOT Peak Gradient 6 mmHg [facility] Work Phone: LVOT Peak Velocity 1.2 m/s [facility] Work Phone: [phone] LVOT Stroke Volume Index 52.8 mL/m2 [facility] Work Phone: LVOT SV 119.3 ml [facility] Work Phone: LVOT VTI 31.4 cm [facility] Work Phone: [phone] LVOT:AV VTI Index 0.43 [facility] e[facility] Work Phone: [phone] LVPWd 1 cm 0.6 - 1.0 cm [facility] Work Phone: [phone] RA Area 4C 48.5 mL [facility] Work Phone: RA Area 4C 46.4 mL [facility] Work Phone: RV Basal Dimension 3.4 cm [facility] Work Phone: RV Free Wall Peak S' 17 cm/s [facility] Work Phone: RV Longitudinal Dimension 7.2 cm [facility] Work Phone: RV Mid Dimension 2.5 cm [facility] alth Work Phone: RVSP 29 mmHg [facility] Work Phone: Sinotubular Junction 4.1 cm [facility] Work Phone: TAPSE 2.5 cm 1.7 cm [facility] Work Phone: TR Max Velocity 2.56 m/s [facility] Work Phone: TR Peak Gradient 26 mmHg [facility] Work Phone: [facility] Work Phone: [phone] US Heart Transthoracicon Left Ventricle: Not well visualized. Left ventricle is mildly dilated. Normal wall thickness. Normal left ventricular systolic function. EF by 2D Simpsons Biplane is 62%. Technical limitations preclude assessment of global longitudinal strain. Normal wall motion. Right Ventricle: Right ventricle size is normal. Normal systolic function. Aortic Valve: Moderately calcified cusps. Moderately severe (3+) regurgitation, technically difficult assessment (benjamin contracta is not well seen, LVOT jet ratio ~50%. No significant stenosis. Aorta: Dilated sinuses of Valsalva. Sinuses of Valsalva diameter is 4.6 cm. Mildly dilated ascending aorta. Ao ascending diameter is 4.0 cm. There is moderate effacement of the STJ. Technically difficult study. Consider CMR imaging for more accurate LV volumes and AR assessment. Left Ventricle Not well visualized. Left ventricle is mildly dilated. Normal wall thickness. Normal left ventricular systolic function. EF by 2D Simpsons Biplane is 62%. Technical limitations preclude assessment of global longitudinal strain. Normal wall motion. Right Ventricle Right ventricle size is normal. Normal systolic function. Left Atrium Left atrium size is normal. Right Atrium Right atrium size is normal. IVC/SVC IVC diameter is normal and decreases greater than 50% during inspiration; therefore the estimated right atrial pressure is normal (~3 mmHg). Mitral Valve Valve structure is normal. Mild (1+) regurgitation. No stenosis noted. Tricuspid Valve Valve structure is normal. Trace regurgitation. Normal RVSP. Aortic Valve Moderately calcified cusps. Moderately severe (3+) regurgitation, technically difficult assessment (benjamin contracta is not well seen, LVOT jet ratio ~50%. No significant stenosis. Pulmonic Valve Valve structure is normal. Trace regurgitation. Ascending Aorta Dilated sinuses of Valsalva. Sinuses of Valsalva diameter is 4.6 cm. Mildly dilated ascending aorta. Ao ascending diameter is 4.0 cm. There is moderate effacement of the STJ. Pericardium Evidence of prominent epicardial fat. No pericardial effusion. Septum No interatrial shunt visualized on color Doppler. Study Details Image quality: technically difficult. Heart rate: 50 bpm. Blood pressure: 116/74 mmHg. The underlying ECG rhythm was sinus bradycardia. Technical qualifiers: Technically difficult study due to patient's body habitus. No contrast was given. Echo Additional Conclusions Technically difficult study. CV CPACS Tacrolimus (Prograf)on 04-05 Tacrolimus (Bld) [Mass/Vol] 6.6 ng/mL Normal 5.0-20.0 [facility] Comment on above: Order Comment: Test( s) [id number] ([id number]), Blood was developed and its performance characteristics determined by [facility]. It has not been cleared or approved by the Food and Drug Administration. Result Comment: Targ et steady state trough concentration for Tacrolimus varies based on type of organ transplant immunosuppressive protocol and other patient specific factors. Tacrolimus trough concentrations should be interpreted in conjunction with clinical assessments of rejection and tolerability. Values obtained with different assay methods cannot be used interchangeably due to differences in assay methods and cross-reactivty with metabolites, nor should correction factors be applied. Therefore, consistent use of one assay for individual patients is recommended. Detection Limit = 0.5 ng/mL Performed by LC-MS/MS technology Please note reference interval change Performed at: [address] [id number] Automatic Wheel Line Operator: Neto Cullen MD, Phone: [phone] Performed By: #### L 509.1000, L500.3600, L3500.3200, L506.1001, L100.0500, L3380.1000, L501.0900 #### [facility] [address] [place], [address] BUN/creatinine ratioOrdered By: Dilan Grayson on 04-03-2024 Urea nitrogen/Creatinine [Mass ratio] 16.4 mg/mg 10-20 [facility] CBC-Complete Blood Cnt No Di ffon 04-03-2024 Erythrocyte distribution width (RBC) [Ratio] 12.6 % Normal 11.6-14.6 [facility] Comment on above: Performed By: #### L 509.1000, L500.3600, L3500.3200, L506.1001, L100.0500, L3380.1000, L501.0900 #### [facility] [address] [place], [address] Hematocrit (Bld) [Volume fraction] 47.1 % Normal 40-54 [facility] Comment on above: Performed By: #### L 509.1000, L500.3600, L3500.3200, L506.1001, L100.0500, L3380.1000, L501.0900 #### [facility] [address] [place], [address] Hemoglobin (Bld) [Mass/Vol] 15.1 g/dL Normal 13.0-16.5 [facility] Comment on above: Performed By: #### L 509.1000, L500.3600, L3500.3200, L506.1001, L100.0500, L3380.1000, L501.0900 #### [facility] [address] [place], [address] MCH (RBC) [Entitic mass] 28.7 pg Normal 27.0-32.0 [facility] Comment on above: Performed By: #### L 509.1000, L500.3600, L3500.3200, L506.1001, L100.0500, L3380.1000, L501.0900 #### [facility] [address] [place], [address] MCHC (RBC) [Mass/Vol] 32.1 g/dL Normal 32-36 [facility] Comment on above: Performed By: #### L 509.1000, L500.3600, L3500.3200, L506.1001, L100.0500, L3380.1000, L501.0900 #### [facility] [address] [place], [address] MCV (RBC) [Entitic vol] 89.4 fL Normal 80-94 [facility] Comment on above: Performed By: #### L 509.1000, L500.3600, L3500.3200, L506.1001, L100.0500, L3380.1000, L501.0900 #### [facility] [address] [place], [address] Platelet mean volume (Bld) [Entitic vol] 10.1 fL Normal 6.2-12.0 [facility] Comment on above: Performed By: #### L 509.1000, L500.3600, L3500.3200, L506.1001, L100.0500, L3380.1000, L501.0900 #### [facility] [address] [place], [address] Platelets (Bld) [#/Vol] 187 10*3/uL Normal 150-450 [facility] Comment on above: Performed By: #### L 509.1000, L500.3600, L3500.3200, L506.1001, L100.0500, L3380.1000, L501.0900 #### [facility] [address] [place], [address] RBC (Bld) [#/Vol] 5.27 10*6/uL Normal 4.6-6.2 [facility] Comment on above: Performed By: #### L 509.1000, L500.3600, L3500.3200, L506.1001, L100.0500, L3380.1000, L501.0900 #### [facility] [address] [place], [address] RDW SD 40.9 fl Normal 35.1-43.9 [facility] Comment on above: Performed By: #### L 509.1000, L500.3600, L3500.3200, L506.1001, L100.0500, L3380.1000, L501.0900 #### [facility] [address] [place], [address] WBC (Bld) [#/Vol] 7.2 10*3/uL Normal 4.4-11.0 [facility] Comment on above: Performed By: #### L 509.1000, L500.3600, L3500.3200, L506.1001, L100.0500, L3380.1000, L501.0900 #### [facility] [place], [address] Carbon dioxide measurementOr dered By: Dilan Grayson on 04-03-2024 CO2 [Moles/Vol] 23.4 mmol/L 22.0-29.0 [facility] Chloride measurementOrdered By: Dilan Grayson on 04-03-2024 Chloride [Moles/Vol] 106 mmol/L 96-108 [facility] Creatinine Unsp time (U) [Ma ss/Vol]Ordered By: Dilan Grayson on 04-03-2024 Creatinine (U) [Mass/Vol] 109.00 mg/dL NO RANGE EST. [facility] Creatinine [Moles/Vol]Ordere d By: Dilan Grayson on 04-03-2024 Creatinine [Mass/Vol] 1.2 mg/dL 0.8-1.3 [facility] Erythrocyte distribution wid th ratioOrdered By: Dilan Grayson on 04-03-2024 Erythrocyte distribution width (RBC) [Ratio] 12.6 % 11.6-14.6 [facility] Erythrocyte distribution wid th standard deviationOrdered By: Dilan Grayson on 04-03-2024 Erythrocyte distribution width (RBC) [Entitic vol] 40.9 fL 35.1-43.9 [facility] GFR/1.73 sq M.predicted caridad g non-blacks MDRD (S/P/Bld) [Vol rate/Area]Ordered By: Dilan Grayson on 04-03-2024 Estimated GFR (MDRD) Non-Af Amer 68 >60 [facility] Comment on above: mL/min/1.73m2 CKD-EP I Creatinine Equation (2020) Hematocrit Auto (Bld) [Volum e fraction]Ordered By: Dilan Grayson on 04-03-2024 Hematocrit (Bld) [Volume fraction] 47.1 % 40-54 [facility] Hemoglobin measurementOrdere d By: Dilan Grayson on 04-03-2024 Hemoglobin (Bld) [Mass/Vol] 15.1 g/dL 13.0-16.5 [facility] Intact parathyroid hormone ( iPTH) measurementOrdered By: Dilan Grayson on 04-03-2024 Parathyroid Hormone (Intact) 119 pg/mL High 11-61 [facility] L506.1001on 04-03-2024 Vitamin D 25-OH 54.7 ng/mL Normal 30-100 [facility] Comment on above: Result Comment: Veronique min D Status Deficiency: <20 ng/mL (50nmol/L) Insufficiency: 20-30 ng/mL (50-75 nmol/L) Sufficiency: 30-100 ng/mL (75-250 nmol/L) Toxicity: >100 ng/mL (>250 nmol/L) Performed By: #### L 509.1000, L500.3600, L3500.3200, L506.1001, L100.0500, L3380.1000, L501.0900 #### [facility] [address] [place], [place], [id number] MCV (mean corpuscular volume ) determinationOrdered By: Dilan Grayson on 04-03-2024 MCV (RBC) [Entitic vol] 89.4 fL 80-94 [facility] Mean corpuscular hemoglobin (MCH) determinationOrdered By: Dilan Grayson on 04-03-2024 MCH (RBC) [Entitic mass] 28.7 pg 27.0-32.0 [facility] Mean corpuscular hemoglobin concentration (MCHC) determinationOrdered By: Dilan Grayson on 04-03-2024 MCHC (RBC) [Mass/Vol] 32.1 g/dL 32-36 [facility] Mean platelet volume determi nationOrdered By: Dilan Grayson on 04-03-2024 Platelet mean volume (Bld) [Entitic vol] 10.1 fL 6.2-12.0 [facility] No Panel InformationOrdered By: Dilan Grayson on 04-03-2024 Vitamin D 25-Hydroxy 54.7 ng/mL 30-100 [facility] Comment on above: Vitamin D StatusDefi ciency: <20 ng/mL (50nmol/L)Insufficiency: 20-30 ng/mL (50-75 nmol/L)Sufficiency: 30-100 ng/mL (75-250 nmol/L)Toxicity: >100 ng/mL (>250 nmol/L) PTHINon 04-03-2024 PTH 119 pg/mL High 11-61 [facility] Comment on above: Performed By: #### L 509.1000, L500.3600, L3500.3200, L506.1001, L100.0500, L3380.1000, L501.0900 #### [facility] [address] [place], [address] Platelet countOrdered By: Aguilar Grayson on 04-03-2024 Platelets (Bld) [#/Vol] 187 10*3/uL 150-450 [facility] Prograf-[id number] TO [facility] 04-03-2024 PROGRAF,MAILED MAILED SPECIMEN Normal [facility] Comment on above: Order Comment: WRONG TEST Result Comment: WRON G TEST Performed By: #### L 509.1000, L500.3600, L3500.3200, L506.1001, L100.0500, L3380.1000, L501.0900 #### [facility] Laboratory [address] [place], [address] Protein+Creatinine Ratio,Uri neon 04-03-2024 PROT:CRE RATIO 68 mg/g CRE Normal 0-200 [facility] Comment on above: Performed By: #### L 509.1000, L500.3600, L3500.3200, L506.1001, L100.0500, L3380.1000, L501.0900 #### [facility] Laboratory [address] [place], [address] Protein (U) [Mass/Vol] 8 mg/dL Normal <=12 [facility] Comment on above: Performed By: #### L 509.1000, L500.3600, L3500.3200, L506.1001, L100.0500, L3380.1000, L501.0900 #### [facility] Laboratory [address] [place], [address] UR CREAT 109.00 mg/dL Normal NO RANGE EST. [facility] Comment on above: Performed By: #### L 509.1000, L500.3600, L3500.3200, L506.1001, L100.0500, L3380.1000, L501.0900 #### [facility] Laboratory [address] [place], [address] Protein/Creatinine (U) [Mass ratio]Ordered By: Dilan Grayson on 04-03-2024 Urine Protein/Creatinine Ratio 68 mg/g CRE 0-200 [facility] RBC Auto (Bld) [#/Vol]Ordere d By: Dilan Grayson on 04-03-2024 RBC (Bld) [#/Vol] 5.27 10*6/uL 4.6-6.2 [facility] Renal Profileon 04-03-2024 Albumin [Mass/Vol] 4.1 g/dL Normal 3.4-4.8 [facility] Comment on above: Performed By: #### L 509.1000, L500.3600, L3500.3200, L506.1001, L100.0500, L3380.1000, L501.0900 #### [facility] Laboratory [address] [place], [address] BUN/CRE 16.4 RATIO Normal 10-20 [facility] Comment on above: Performed By: #### L 509.1000, L500.3600, L3500.3200, L506.1001, L100.0500, L3380.1000, L501.0900 #### [facility] Laboratory [address] [place], [address] Calcium [Mass/Vol] 10.4 mg/dL Normal 7.6-11.0 [facility] Comment on above: Performed By: #### L 509.1000, L500.3600, L3500.3200, L506.1001, L100.0500, L3380.1000, L501.0900 #### [facility] Laboratory [address] [place], [address] Chloride [Moles/Vol] 106 mmol/L Normal 96-108 [facility] Comment on above: Performed By: #### L 509.1000, L500.3600, L3500.3200, L506.1001, L100.0500, L3380.1000, L501.0900 #### [facility] Laboratory [address] [place], [address] CO2 [Moles/Vol] 23.4 mmol/L Normal 22.0-29.0 [facility] Comment on above: Performed By: #### L 509.1000, L500.3600, L3500.3200, L506.1001, L100.0500, L3380.1000, L501.0900 #### [facility] Laboratory [address] [place], [address] Creatinine [Mass/Vol] 1.2 mg/dL Normal 0.8-1.3 [facility] Comment on above: Performed By: #### L 509.1000, L500.3600, L3500.3200, L506.1001, L100.0500, L3380.1000, L501.0900 #### [facility] Laboratory [address] [place], [address] GFR/1.73 sq M.predicted among non-blacks MDRD (S/P/Bld) [Vol rate/Area] 68 mL/min/{1.73_m2} Normal >60 [facility] Comment on above: Result Comment: mL/m in/1.73m2 CKD-EPI Creatinine Equation (2020) Performed By: #### L 509.1000, L500.3600, L3500.3200, L506.1001, L100.0500, L3380.1000, L501.0900 #### [facility] Laboratory [address] [place], [address] Glucose [Mass/Vol] 103 mg/dL High 70-99 [facility] Comment on above: Performed By: #### L 509.1000, L500.3600, L3500.3200, L506.1001, L100.0500, L3380.1000, L501.0900 #### [facility] Laboratory [address] [place], [address] Phosphate [Mass/Vol] 3.0 mg/dL Normal 2.7-4.5 [facility] Comment on above: Performed By: #### L 509.1000, L500.3600, L3500.3200, L506.1001, L100.0500, L3380.1000, L501.0900 #### [facility] [address] [place], [address] Potassium [Moles/Vol] 4.2 mmol/L Normal 3.3-5.1 [facility] Comment on above: Performed By: #### L 509.1000, L500.3600, L3500.3200, L506.1001, L100.0500, L3380.1000, L501.0900 #### [facility] [address] [place], [address] Sodium [Moles/Vol] 141 mmol/L Normal 133-145 [facility] Comment on above: Performed By: #### L 509.1000, L500.3600, L3500.3200, L506.1001, L100.0500, L3380.1000, L501.0900 #### [facility] [address] [place], [address] Urea nitrogen [Mass/Vol] 20 mg/dL High 4-19 [facility] Comment on above: Performed By: #### L 509.1000, L500.3600, L3500.3200, L506.1001, L100.0500, L3380.1000, L501.0900 #### [facility] [place], [address] Serum glucose measurement (m ass/volume)Ordered By: Dilan Grayson on 04-03-2024 Glucose [Mass/Vol] 103 mg/dL High 70-99 [facility] Serum or plasma albumin deya urement (mass/volume)Ordered By: Dilan Grayson on 04-03-2024 Albumin [Mass/Vol] 4.1 g/dL 3.4-4.8 [facility] Serum or plasma calcium deya urement (mass/volume)Ordered By: Dilan Grayson on 04-03-2024 Calcium [Mass/Vol] 10.4 mg/dL 7.6-11.0 [facility] Serum or plasma potassium me asurementOrdered By: Dilan Grayson on 04-03-2024 Potassium [Moles/Vol] 4.2 mmol/L 3.3-5.1 [facility] Serum or plasma sodium measu rement (moles/volume)Ordered By: Dilan Grayson on 04-03-2024 Sodium [Moles/Vol] 141 mmol/L 133-145 [facility] Serum or plasma urea nitroge n measurement (mass/volume)Ordered By: Dilan Grayson on 04-03-2024 Urea nitrogen [Mass/Vol] 20 mg/dL High 4-19 [facility] Serum phosphorus measurement Ordered By: Dilan Grayson on 04-03-2024 Phosphorus Level 3.0 mg/dL 2.7-4.5 [facility] Tacrolimus levelOrdered By: Dilan Grayson on 04-03-2024 Tacrolimus (Prograf) Level 6.6 ng/mL 5.0-20.0 [facility] Comment on above: Target steady state trough concentration forTacrolimus varies based on type of organ transplantimmunosuppressive protocol and other patient specificfactors. Tacrolimus trough concentrations should beinterpreted in conjunction with clinical assessmentsof rejection and tolerability. Values obtained withdifferent assay methods cannot be used interchangeablydue to differences in assay methods and cross-reactivtywith metabolites, nor should correction factors beapplied. Therefore, consistent use of one assay forindividual patients is recommended.Detection Limit = 0.5 ng/mLPerformed by LC-MS/MS technology Please note reference interval changePerformed at: [address] [id number] Director: Neto Cullen MD, Phone: [phone] Urine protein measurement (m ass/volume)Ordered By: Dilan Grayson on 04-03-2024 Protein (U) [Mass/Vol] 8 mg/dL <=12 [facility] White blood cell (WBC) count Ordered By: Dilan Grayson on 04-03-2024 WBC (Bld) [#/Vol] 7.2 10*3/uL 4.4-11.0 [facility] 36on 02-14-2024 36 CBC and BMP at nephr oly 09/26/23: Hematocrit (Bld) [Volume fraction] 49.8 % Normal 40-54 [facility] Comment on above: Performed By: #### L100.0500, L506.1000, L3380.1000, L500.3600, L509.1000, L3900.4000, L501.0900 #### [facility] [address] [place], [address] Hemoglobin (Bld) [Mass/Vol] 15.9 g/dL Normal 13.0-16.5 [facility] Comment on above: Performed By: #### L100.0500, L506.1000, L3380.1000, L500.3600, L509.1000, L3900.4000, L501.0900 #### [facility] Laboratory [address] [place], [address] MCH (RBC) [Entitic mass] 28.4 pg Normal 27.0-32.0 [facility] Comment on above: Performed By: #### L100.0500, L506.1000, L3380.1000, L500.3600, L509.1000, L3900.4000, L501.0900 #### [facility] Laboratory [address] [place], [address] MCHC (RBC) [Mass/Vol] 31.9 g/dL Low 32-36 [facility] Comment on above: Performed By: #### L100.0500, L506.1000, L3380.1000, L500.3600, L509.1000, L3900.4000, L501.0900 #### [facility] [address] [place], [address] MCV (RBC) [Entitic vol] 88.9 fL Normal 80-94 [facility] Comment on above: Performed By: #### L100.0500, L506.1000, L3380.1000, L500.3600, L509.1000, L3900.4000, L501.0900 #### [facility] [address] [place], [address] Platelet mean volume (Bld) [Entitic vol] 10.2 fL Normal 6.2-12.0 [facility] Comment on above: Performed By: #### L100.0500, L506.1000, L3380.1000, L500.3600, L509.1000, L3900.4000, L501.0900 #### [facility] [address] [place], [address] Platelets (Bld) [#/Vol] 200 10*3/uL Normal 150-450 [facility] Comment on above: Performed By: #### L100.0500, L506.1000, L3380.1000, L500.3600, L509.1000, L3900.4000, L501.0900 #### [facility] [address] [place], [address] RBC (Bld) [#/Vol] 5.60 10*6/uL Normal 4.6-6.2 [facility] Comment on above: Performed By: #### L100.0500, L506.1000, L3380.1000, L500.3600, L509.1000, L3900.4000, L501.0900 #### [facility] [address] [place], [address] RDW SD 40.1 fl Normal 35.1-43.9 [facility] Comment on above: Performed By: #### L100.0500, L506.1000, L3380.1000, L500.3600, L509.1000, L3900.4000, L501.0900 #### [facility] [address] [place], [address] WBC (Bld) [#/Vol] 6.6 10*3/uL Normal 4.4-11.0 [facility] Comment on above: Performed By: #### L100.0500, L506.1000, L3380.1000, L500.3600, L509.1000, L3900.4000, L501.0900 #### [facility] [address] [place], [address] PTHIN on 09-26-2023 PTH 214.1 pg/mL High 18.4-80.1 [facility] Comment on above: Performed By: #### L100.0500, L506.1000, L3380.1000, L500.3600, L509.1000, L3900.4000, L501.0900 #### [facility] Laboratory [address] [place], [address] Protein+Creatinine Ratio,Urine on 09-26-2023 PROT:CRE RATIO 161 mg/g CRE Normal 0-200 [facility] Comment on above: Performed By: #### L100.0500, L506.1000, L3380.1000, L500.3600, L509.1000, L3900.4000, L501.0900 #### [facility] [address] [place], [address] Protein (U) [Mass/Vol] 17.9 mg/dL High <11.9 [facility] Comment on above: Performed By: #### L100.0500, L506.1000, L3380.1000, L500.3600, L509.1000, L3900.4000, L501.0900 #### [facility] [address] [place], [address] UR CREAT 111.00 mg/dL Normal NO RANGE EST. [facility] Comment on above: Performed By: #### L100.0500, L506.1000, L3380.1000, L500.3600, L509.1000, L3900.4000, L501.0900 #### [facility] [address] [place], [address] Renal Profile on 09-26-2023 Albumin [Mass/Vol] 3.5 g/dL Normal 3.2-5.0 [facility] Comment on above: Performed By: ## L100.0500, L506.1000, L3380.1000, L500.3600, L509.1000, L3900.4000, L501.0900 #### [facility] [address] [place], [address] BUN/CRE 17.3 RATIO Normal - [facility] Comment on above: Performed By: ## L100.0500, L506.1000, L3380.1000, L500.3600, L509.1000, L3900.4000, L501.0900 ## [facility] [address] [place], [address] CA,Total 10.0 mg/dL Normal 8.5-10.1 [facility] Comment on above: Performed By: ## L100.0500, L506.1000, L3380.1000, L500.3600, L509.1000, L3900.4000, L501.0900 ## [facility] (more content not included)... Normal [facility] 36on 02-01-2024 36 Recent Visits Date Type Provider Dept 11/27/23 Office Visit Minor Beasley, DO [facility] 04/06/23 Office Visit Minor Beasley DO [facility] Showing recent visits within past 365 days and meeting all other requirements Future Appointments No visits were found meeting these conditions. Showing future appointments within next 90 days and meeting all other requirements Requested Prescriptions Pending Prescriptions Disp Refills metoprolol tartrate (Lopressor) 50 MG tablet [Pharmacy Med Name: METOPROLOL TARTRATE TABS 50MG] 180 tablet 1 Sig: Take 1 tablet (50 mg) by mouth 2 times daily. Provider: Minor Beasley DO Verified pharmacy: yes Verified day(s) supplied: yes Verified refill(s) needed (previous prescription showing no refills in chart): Yes Have you received any controlled medications from any other provider? N/A Overdue for visit: No If yes - patient scheduled? N/A Most recent labs completed in chart? N/A None [facility] 36on 01-05-2024 36 Recent Visits Date Type Provider Dept 11/27/23 Office Visit Minor Beasley, DO [facility] 04/06/23 Office Visit Minor Beasley, DO [facility] Showing recent visits within past 365 days and meeting all other requirements Future Appointments No visits were found meeting these conditions. Showing future appointments within next 90 days and meeting all other requirements Requested Prescriptions Pending Prescriptions Disp Refills famotidine (Pepcid) 20 MG tablet [Pharmacy Med Name: FAMOTIDINE TABS 20MG] 180 tablet 1 Sig: Take 1 tablet (20 mg) by mouth 2 times daily. Provider: Minor Beasley DO Verified pharmacy: yes Verified day(s) supplied: yes Verified refill(s) needed (previous prescription showing no refills in chart): Yes Have you received any controlled medications from any other provider? N/A Overdue for visit: No If yes - patient scheduled? N/A Most recent labs completed in chart? No None [facility] ECG 12 lead - CLINIC PERFORM EDon 12-25-2023 Start of ekg - run o f afib with conversion to sinus bradycardia with PAC and a non-conducted PAC [facility] Office Visiton 12-25-2023 Follow-up visit [id number] Edmond Lama 1960 M Date Provider Department Center 12/25/2023 [id number]-WHDHIACE LYNN [facility] [place] None Family History Problem Relation Age of Onset Cerebral aneurysm Mother Comments: at age 55 Diabetes Father Dementia Father Comments: at age 82 No Known Problems Sister No Known Problems Brother No Known Problems Brother Other Maternal Grandmother Comments: age 80 Cancer Maternal Grandfather Other Paternal Grandmother Comments: in mid 70s Dementia Paternal Grandfather Comments: age 79 Family Status - Relation Status Age at Mother Father Sister Brother Brother Alive Maternal Grandmother Maternal Grandfather Paternal Grandmother Paternal Grandfather Level of Service:85867 MT OFFICE/OUTPATIENT ESTABLISHED HIGH MDM 40 MIN Reason for Visit and Comments: 1 Year Follow-up [670] Atrial Fibrillation [80] Normal [facility] Progress Noteon 12-25-2023 Progress Note [facility] Cardiology Note Visit type: New Chief Complaint: Chief Complaint Patient presents with 1 Year Follow-up Atrial Fibrillation History of Present Illness: Edmond Lama is a 63 y.o. 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 He has a history of aortic aneurysm and moderate aortic regurgitation. He is here for a routine follow-up. He continues to do well. He denies chest pain, shortness of breath, orthopnea or PND. No syncope or presyncope. No falls. No bleeding issues. Past Medical History: Past Medical History: Diagnosis Date Anticoagulant long-term use 06/2021 Xarelto Aortic insufficiency 11/06/2018 Mild Aortic stenosis 2023 Dr. Messina BMI 36.0-36.9,adult COVID-19 12/2019 CRF (chronic renal failure) 1996 polycystic kidney ds- transplant 2000 and 07/2019 Dilatation of aortic sinus of Valsalva 11/06/2018 Diverticulosis 2014 ESRD on dialysis (HCC) 08/01/2017 LUE shunt- stopped 07/26 with second transplant Gastroesophageal reflux disease without esophagitis 10/28/201908/26 EGD per [facility] Gout H/O colonoscopy with polypectomy 08/2020 Dr. Elizabeth- due 5-10 yrs History of renal transplant 07/2019 and 2001 Hyperlipidemia 08/01/2017 statin intolerance- defers rx Hypertension 05/04/2015 PAF (paroxysmal atrial fibrillation) (HCC) 10/28/2019 s/p ablation 06/27 at [facility] Polycystic kidney disease 1994 Prostate cancer screening 04/2023 Statin intolerance Past Surgical History Past Surgical History: Procedure Laterality Date CARDIAC ABLATION P ROCEDURE (HISTORICAL) 06/2021 at [facility] for At Fib CHOLECYSTECTOMY [address] Reis-small polyp COLONOSCOPY W/ POLYPECTOMY 08/2020 Dr Reis-small polyp-due 5-10 yrs HX AV GRAFT CREATION Left 10/09/2018 [place] OTHER SURGICAL HISTORY exp lap for abd lymphocele drainage OTHER SURGICAL HISTORY 10/08/2015 Laparoscopic peritoneal dialysis catheter placement-Dr Arshad OTHER SURGICAL HISTORY 07/22/2018 Removal peritoneal dialysis catheter at [facility] TONSILLECTOMY 1965 TRANSPLANT, KIDNEY, OPEN 1996 [facility] TRANSPLANT, KIDNEY, OPEN 07/2019 [facility] UPPER GASTROINTESTINAL ENDOSCOPY 08/2020 Dr Reis-mild GERD VENTRAL HERNIA REPAIR 2013 Family History Family History Problem Relation Name Age of Onset Cerebral aneurysm Mother at age 55 Diabetes Father Dementia Father at age 82 No Known Problems Sister Pilar No Known Problems Brother Arjun No Known Problems Brother Scot Other Maternal Grandmother age 80 Cancer Maternal Grandfather Other Paternal Grandmother in mid 70s Dementia Paternal Grandfather age 79 Social History Social History Tobacco Use Smoking status: Never Smokeless tobacco: Never Vaping Use Vaping status: Never Used Substance Use Topics Alcohol use: Never Drug use: Never Comment: Caffiene: Rare Allergies: Allergies Allergen Reactions Statins Other Muscle weakness Back pain Nickel When he gets anant-red, inflamed Medications: Current Outpatient Medications: enalapril (Vasotec) 5 MG tablet, Take 1 tablet (5 mg) by mouth daily., Disp: 90 tablet, Rfl: 1 famotidine (Pepcid) 20 MG tablet, Take 1 tablet (20 mg) by mouth 2 times daily., Disp: 180 tablet, Rfl: 1 Lactobacillus (PROBIOTIC ACIDOPHILUS PO), Take by mouth daily., Disp: , Rfl: magnesium oxide (Mag-Ox), Take 400 mg by mouth in the morning and 400 mg in the evening., Disp: , Rfl: metoprolol tartrate (Lopressor) 50 MG tablet, Take 1 tablet (50 mg) by mouth 2 times daily., Disp: 180 tablet, Rfl: 1 Multiple Vitamin (multivitamin) tablet, Take 1 tablet by mouth daily., Disp: , Rfl: Multiple Vitamins-Minerals (PRESERVISION AREDS 2 PO), Take by mouth daily., Disp: , Rfl: mycophenolate (Myfortic) 360 MG EC tablet, Take 360 mg by mouth in the morning and 360 mg before bedtime., Disp: , Rfl: rivaroxaban (Xarelto) 20 MG tablet, Take 1 tablet (20 mg) by mouth with evening meal. Take with food., Disp: 90 tablet, Rfl: 3 tacrolimus (Prograf) 0.5 MG capsule, Take 1 mg by mouth 2 times daily. 1 mg and 1/2 at night, Disp: , Rfl: Review of Systems: Review of Systems Constitutional: Negative for activity change, chills, diaphoresis, fatigue and fever. HENT: Negative for nosebleeds and trouble swallowing. Eyes: Negative for discharge and visual disturbance. Respiratory: Negative for apnea, cough, chest tightness, shortness of breath and wheezing. Cardiovascular: Negative for chest pain, palpitations (occasionally) and leg swelling. Gastrointestinal: Negative for abdominal distention, abdominal pain, blood in stool, diarrhea, nausea and vomiting. Endocrine: Negative for cold intolerance and heat intolerance. Genitourinary: Negative for hematuria and u (more content not included)... Normal [facility] 36on 12-06-2023 36 RX loaded Next ov 05/13/24 [facility] 36 Medication name: juan lapril (Vasotec) 5 MG tablet [[id number]] Medication dosage: 5 mg (Miligrams Monthly quantity needed: 30 How many day supply requestin year Medication route: oral (PO) Medication administration time(s): daily If taking medication PRN, reason for taking medication: N/A If this is a controlled substance do you receive this or any other controlled medication from any other doctor or facility: No Ordering provider: Dr. Beasley Date of last office visit: 11.27.23 Date of next office visit: 05.13.24 Date of last refill: (see medication tab): 06.07.23 Updated/Validated preferred pharmacy: Yes [facility] [place] - [address] [place] [address] [place] [id number] Patient instructed to contact the pharmacy prior to picking up the medication: N/A Normal [facility] Progress Noteon 11-27-2023 Progress Note [facility] - [address] [facility] [id number] Visit type: Established Patient Reason for Visit: Follow-up (Med check) and Flu Vaccine (Patient has declined the flu vaccine ) Assessment / Plan: Edmond was seen today for follow-up and flu vaccine. Diagnoses and all orders for this visit: Primary hypertension (Primary) Comments: Stable, continue Lopressor and Vasotec Hyperlipidemia, unspecified hyperlipidemia type Comments: Uncontrolled, discussed LDL goal and potential use of Repatha or Praluent Orders: - Lipid panel; Future - Lipid panel PAF (paroxysmal atrial fibrillation) (HCC) Comments: Stable, continue Xarelto History of renal transplant Other orders - Flu vaccine (FLUAD), trivalent, adjuvanted, preservative-free (ages 65+) Subjective: Patient ID: Edmond Lama is a 63 y.o. male. HPI hypertensive patient with history of 2 renal transplants and paroxysmal atrial fibrillation on Xarelto presents for checkup. Overall has done well. No new concerns. Apparently recent lab in October after nephrology office was acceptable. Review of Systems no recent earache sore throat or cough. No chest pain or palpitations. No PND orthopnea claudication or edema. No heartburn or abdominal pain. Bowels are regular. No melena or blood. Colonoscopy up-to-date. Prostate cancer screening up-to-date Allergies Allergen Reactions Statins Other Muscle weakness Back pain Nickel When he gets anant-red, inflamed Current Outpatient Medications on File Prior to Visit Medication Sig Dispense Refill CellCept 500 MG tablet Take 1 tablet by mouth in the morning and 1 tablet in the evening. enalapril (Vasotec) 5 MG tablet Take 1 tablet (5 mg) by mouth daily. 90 tablet 1 famotidine (Pepcid) 20 MG tablet Take 1 tablet (20 mg) by mouth 2 times daily. 180 tablet 1 magnesium oxide (Mag-Ox) Take 400 mg by mouth in the morning and 400 mg in the evening. metoprolol tartrate (Lopressor) 50 MG tablet Take 1 tablet (50 mg) by mouth 2 times daily. 180 tablet 1 mycophenolate (Myfortic) 360 MG EC tablet Take 360 mg by mouth in the morning and 360 mg before bedtime. rivaroxaban (Xarelto) 20 MG tablet Take 1 tablet (20 mg) by mouth with evening meal. Take with food. 90 tablet 3 tacrolimus (Prograf) 0.5 MG capsule Take 1 mg by mouth 2 times daily. 1 mg and 1/2 at night No current facility-administered medications on file prior to visit. Patient Active Problem List Diagnosis Polycystic kidney disease RLS (restless legs syndrome) Gastroesophageal reflux disease without esophagitis PAF (paroxysmal atrial fibrillation) ([facility]) Hypertension History of renal transplant Dilatation of aortic sinus of Valsalva CRF (chronic renal failure) Aortic insufficiency Hyperlipidemia ESRD on dialysis ([facility]) Class 1 obesity ADPKD (autosomal dominant polycystic kidney disease) Statin intolerance Diverticulosis Gout H/O colonoscopy with polypectomy BMI 36.0-36.9,adult Social History Tobacco Use Smoking status: Never Smokeless tobacco: Never Substance Use Topics Alcohol use: Never Past Surgical History: Procedure Laterality Date CARDIAC ABLATION P ROCEDURE (HISTORICAL) 06/2021 at [facility] for [facility] CHOLECYSTECTOMY [address] Reis-small polyp COLONOSCOPY W/ POLYPECTOMY 08/2020 Dr Reis-small polyp-due 5-10 yrs HX AV GRAFT CREATION Left 10/09/2018 [place] OTHER SURGICAL HISTORY exp lap for abd lymphocele drainage OTHER SURGICAL HISTORY 10/08/2015 Laparoscopic peritoneal dialysis catheter placement-Dr Arshad OTHER SURGICAL HISTORY 07/22/2018 Removal peritoneal dialysis catheter at [facility] TONSILLECTOMY 1965 TRANSPLANT, KIDNEY, OPEN 1996 [facility] TRANSPLANT, KIDNEY, OPEN 07/2019 [facility] UPPER GASTROINTESTINAL ENDOSCOPY 08/2020 Dr Reis-mild GERD VENTRAL HERNIA REPAIR 2013 Family History Problem Relation Name Age of Onset Cerebral aneurysm Mother at age 55 Diabetes Father Dementia Father at age 82 No Known Problems Sister Pilar No Known Problems Brother Arjun No Known Problems Brother Scot Other Maternal Grandmother age 80 Cancer Maternal Grandfather Other Paternal Grandmother in mid 70s Dementia Paternal Grandfather age 79 Objective: BP 138/62 (BP Location: Right arm, Patient Position: Sitting, BP Cuff Size: Large adult) Pulse 56 Temp 36.4 ?C (97.6 ?F) (Temporal) Ht 5' 9.5 (1.765 m) Wt 239 lb (108 kg) SpO2 98% BMI 34.79 kg/m? Physical Exam pleasant cooperative. Well-hydrated. Normal eardrums and oropharynx. No neck masses JVD adenopathy or thyroid lesions. No carotid bruits. Rate is regular with same aortic valve murmur. Lungs are clear. Abdomen soft nontender without pain hepatosplenomegaly masses or bruits. No ascites. Femoral pedal pulses well. No edema. No skin breakdowns. Normal [facility] L3900.4000on 09-28-2023 BK Virus log10 TNP Normal . [facility] Comment on above: Order Comment: Test( s) [id number] ([id number]), Bloodwas developed and its performance characteristicsdetermined by [employer]. It has not been cleared or approvedby the Food and Drug Administration. Performed By: #### L 509.1000, L500.3600, L3500.3200, L506.1001, L100.0500, L3380.1000, L501.0900 #### [facility] [address] [place], [place], [id number] (868 BK Virus, Quant Negative Normal Negative [facility] Comment on above: Order Comment: Test( s) [id number] ([id number]), Bloodwas developed and its performance characteristicsdetermined by [employer]. It has not been cleared or approvedby the Food and Drug Administration. Result Comment: No B K DNA detected. The linear range of the assay is 22 - 100,000,000 IU/mL. Performed By: #### L 509.1000, L500.3600, L3500.3200, L506.1001, L100.0500, L3380.1000, L501.0900 #### [facility] [address] [place], [place], [id number] (927) Tacrolimus (Prograf)on 09-27 Tacrolimus (Bld) [Mass/Vol] 5.8 ng/mL Normal 2.0-20.0 [facility] Comment on above: Order Comment: Test( s) [id number] (FK506), Bloodwas developed and its performance characteristicsdetermined by [employer]. It has not been cleared or approvedby the Food and Drug Administration. Result Comment: Trou gh (immediately following transplant) 15.0 Trough (steady state, 2 weeks or more after transplant): 3.0 - 8.0 Performed by LC-MS/MS technology. Performed at: [address] [id number] Automatic Wheel Line Operator: Neto Cullen MD, Phone: [phone] Performed By: #### L 509.1000, L500.3600, L3500.3200, L506.1001, L100.0500, L3380.1000, L501.0900 #### [facility] [address] [place], [place], [id number] CBC-Complete Blood Cnt No Di ffon 09-26-2023 Erythrocyte distribution width (RBC) [Ratio] 12.3 % Normal 11.6-14.6 [facility] Comment on above: Performed By: #### L 100.0500, L506.1000, L3380.1000, L500.3600, L509.1000, L3900.4000, L501.0900 #### [facility] [address] [place], [place], [id number] (444 Hematocrit (Bld) [Volume fraction] 49.8 % Normal 40-54 [facility] Comment on above: Performed By: #### L 100.0500, L506.1000, L3380.1000, L500.3600, L509.1000, L3900.4000, L501.0900 #### [facility] [address] [facility] [place], [address] Hemoglobin (Bld) [Mass/Vol] 15.9 g/dL Normal 13.0-16.5 [facility] Comment on above: Performed By: #### L 100.0500, L506.1000, L3380.1000, L500.3600, L509.1000, L3900.4000, L501.0900 #### [facility] [address] [place], [address] MCH (RBC) [Entitic mass] 28.4 pg Normal 27.0-32.0 [facility] Comment on above: Performed By: #### L 100.0500, L506.1000, L3380.1000, L500.3600, L509.1000, L3900.4000, L501.0900 #### [facility] [address] [place], [address] MCHC (RBC) [Mass/Vol] 31.9 g/dL Low 32-36 [facility] Comment on above: Performed By: #### L 100.0500, L506.1000, L3380.1000, L500.3600, L509.1000, L3900.4000, L501.0900 #### [facility] [address] [place], [address] MCV (RBC) [Entitic vol] 88.9 fL Normal 80-94 [facility] Comment on above: Performed By: #### L 100.0500, L506.1000, L3380.1000, L500.3600, L509.1000, L3900.4000, L501.0900 #### [facility] [address] [place], [address] Platelet mean volume (Bld) [Entitic vol] 10.2 fL Normal 6.2-12.0 [facility] Comment on above: Performed By: #### L 100.0500, L506.1000, L3380.1000, L500.3600, L509.1000, L3900.4000, L501.0900 #### [facility] [address] [place], [address] Platelets (Bld) [#/Vol] 200 10*3/uL Normal 150-450 [facility] Comment on above: Performed By: #### L 100.0500, L506.1000, L3380.1000, L500.3600, L509.1000, L3900.4000, L501.0900 #### [facility] [address] [place], [address] RBC (Bld) [#/Vol] 5.60 10*6/uL Normal 4.6-6.2 [facility] Comment on above: Performed By: #### L 100.0500, L506.1000, L3380.1000, L500.3600, L509.1000, L3900.4000, L501.0900 #### [facility] [address] [place], [address] RDW SD 40.1 fl Normal 35.1-43.9 [facility] Comment on above: Performed By: #### L 100.0500, L506.1000, L3380.1000, L500.3600, L509.1000, L3900.4000, L501.0900 #### [facility] [address] [place], [address] WBC (Bld) [#/Vol] 6.6 10*3/uL Normal 4.4-11.0 [facility] Comment on above: Performed By: #### L 100.0500, L506.1000, L3380.1000, L500.3600, L509.1000, L3900.4000, L501.0900 #### [facility] [address] [place], [address] PTHINon 09-26-2023 PTH 214.1 pg/mL High 18.4-80.1 [facility] Comment on above: Performed By: #### L 100.0500, L506.1000, L3380.1000, L500.3600, L509.1000, L3900.4000, L501.0900 #### [facility] [address] [place], [address] Protein+Creatinine Ratio,Uri neon 09-26-2023 PROT:CRE RATIO 161 mg/g CRE Normal 0-200 [facility] Comment on above: Performed By: #### L 509.1000, L500.3600, L3500.3200, L506.1001, L100.0500, L3380.1000, L501.0900 #### [facility] [address] [place], [address] Protein (U) [Mass/Vol] 17.9 mg/dL High <11.9 [facility] Comment on above: Performed By: #### L 509.1000, L500.3600, L3500.3200, L506.1001, L100.0500, L3380.1000, L501.0900 #### [facility] [address] [place], [address] UR CREAT 111.00 mg/dL Normal NO RANGE EST. [facility] Comment on above: Performed By: #### L 509.1000, L500.3600, L3500.3200, L506.1001, L100.0500, L3380.1000, L501.0900 #### [facility] [address] [place], [address] Renal Profileon 09-26-2023 Albumin [Mass/Vol] 3.5 g/dL Normal 3.2-5.0 [facility] Comment on above: Performed By: #### L 100.0500, L506.1000, L3380.1000, L500.3600, L509.1000, L3900.4000, L501.0900 #### [facility] [address] [place], [address] BUN/CRE 17.3 RATIO Normal 10-20 [facility] Comment on above: Performed By: #### L 100.0500, L506.1000, L3380.1000, L500.3600, L509.1000, L3900.4000, L501.0900 #### [facility] [address] [place], [address] CA,Total 10.0 mg/dL Normal 8.5-10.1 [facility] Comment on above: Performed By: #### L 100.0500, L506.1000, L3380.1000, L500.3600, L509.1000, L3900.4000, L501.0900 #### [facility] [address] [place], [address] Chloride [Moles/Vol] 110 mmol/L High 98-107 [facility] Comment on above: Performed By: #### L 100.0500, L506.1000, L3380.1000, L500.3600, L509.1000, L3900.4000, L501.0900 #### [facility] [address] [place], [address] CO2 [Moles/Vol] 26.0 mmol/L Normal 21.0-32.0 [facility] Comment on above: Performed By: #### L 100.0500, L506.1000, L3380.1000, L500.3600, L509.1000, L3900.4000, L501.0900 #### [facility] [address] [place], [address] Creatinine [Mass/Vol] 1.10 mg/dL Normal 0.70-1.30 [facility] Comment on above: Result Comment: The validity of the calculated GFR GFRAA in patients over 70 years has not been determined. Clinical correlation is essential. Performed By: #### L 100.0500, L506.1000, L3380.1000, L500.3600, L509.1000, L3900.4000, L501.0900 #### [facility] [address] [place], [address] EST GFR - AA 87 mL/min Normal >60 [facility] Comment on above: Result Comment: Afri can [place] GFR Calc Performed By: #### L 100.0500, L506.1000, L3380.1000, L500.3600, L509.1000, L3900.4000, L501.0900 #### [facility] [address] [place], [address] GFR/1.73 sq M.predicted among non-blacks MDRD (S/P/Bld) [Vol rate/Area] 72 mL/min/{1.73_m2} Normal >60 [facility] Comment on above: Result Comment: Non- GFR Calc Performed By: #### L 100.0500, L506.1000, L3380.1000, L500.3600, L509.1000, L3900.4000, L501.0900 #### [facility] [address] [place], [address] Glucose [Mass/Vol] 110 mg/dL High 74-106 [facility] Comment on above: Result Comment: Fast ing Glucose result from 100 to 125 mg/dL suggests IMPAIRED HOMEOSTASIS per A.D.A. criteria. Performed By: #### L 100.0500, L506.1000, L3380.1000, L500.3600, L509.1000, L3900.4000, L501.0900 #### [facility] [address] [place], [address] Phosphate [Mass/Vol] 2.4 mg/dL Low 2.5-4.9 [facility] Comment on above: Performed By: #### L 100.0500, L506.1000, L3380.1000, L500.3600, L509.1000, L3900.4000, L501.0900 #### [facility] [address] [place], [address] Potassium [Moles/Vol] 4.1 mmol/L Normal 3.5-5.1 [facility] Comment on above: Performed By: #### L 100.0500, L506.1000, L3380.1000, L500.3600, L509.1000, L3900.4000, L501.0900 #### [facility] [address] [place], [address] Sodium [Moles/Vol] 139 mmol/L Normal 136-145 [facility] Comment on above: Performed By: #### L 100.0500, L506.1000, L3380.1000, L500.3600, L509.1000, L3900.4000, L501.0900 #### [facility] [address] [place], [address] Urea nitrogen [Mass/Vol] 19 mg/dL High 7-18 [facility] Comment on above: Performed By: #### L 100.0500, L506.1000, L3380.1000, L500.3600, L509.1000, L3900.4000, L501.0900 #### [facility] [address] [place], [place], [id number] Vitamin D,25 Hydroxyon 09-25 Vitamin D 25-OH 77.6 ng/mL Normal [facility] Comment on above: Result Comment: Veronique min D 25(OH) Status Range Deficiency <20 ng/mL (50nmol/L) Insufficiency 20 - 30 ng/mL (50 - 75 nmol/L) Sufficiency 30 - 100 ng/mL (75 - 250 nmol/L) Toxicity >100 ng/mL (>250 nmol/L) Performed By: #### L 509.1000, L500.3600, L3500.3200, L506.1001, L100.0500, L3380.1000, L501.0900 #### [facility] [address] [place], [place], [id number] US Heart TransthoracicOrdere d By: Jenny Arceo on 04-10-2023 Aortic Sinus Valsalva 4.9 cm [facility] Work Phone: Aortic Sinus Valsalva Index 2.16 cm/m2 [facility] Work Phone: AR Max Velocity PISA 4.6 m/s [facility] Work Phone: [phone] AR PHT 586.0 ms [facility] Work Phone: [phone] Ascending Aorta 4.2 cm [facility] Work Phone: [phone] Ascending Aorta Index 1.85 cm/m2 [facility] Work Phone: [phone] AV Area by Peak Velocity 1.3 cm2 [facility] Work Phone: [phone] AV Area by VTI 1.4 cm2 [facility] Work Phone: [phone] AV AT 99.19 ms [facility] Work Phone: [phone] AV Mean Gradient 27 mmHg [facility] Work Phone: [phone] AV Mean Velocity 2.4 m/s [facility] Work Phone: [phone] AV Peak Gradient 47 mmHg [facility] Work Phone: [phone] AV Peak Velocity 3.4 m/s [facility] Work Phone: [phone] AV Velocity Ratio 0.35 [facility] Work Phone: [phone] AV VTI 73.2 cm [facility] Work Phone: [phone] CELINA/BSA Peak Velocity 0.6 cm2/m2 [facility] Work Phone: [phone] CELINA/BSA VTI 0.6 cm2/m2 [facility] Work Phone: [phone] E/E' Lateral 7.25 [facility] Work Phone: [phone] E/E' Ratio (Averaged) 9.43 [facility] Work Phone: [phone] E/E' Septal 11.60 [facility] Work Phone: [phone] EF BP 72 % 55 - 100 % [facility] Work Phone: [phone] Est. RA Pressure 3 mmHg [facility] Work Phone: [phone] Fractional Shortening 2D 40 % 28 - 44 % [facility] Work Phone: [phone] Interpretation and review of laboratory results Abnormal [facility] Work Phone: [phone] IVC Diameter 1.9 cm [facility] Work Phone: IVSd 1.1 cm Abnormal 0.6 - 1.0 cm [facility] Work Phone: [phone] LA Diameter 4.7 cm [facility] Work Phone: [phone] LA Size Index 2.07 cm/m2 [facility] Work Phone: LA Volume 2C 64 mL Abnormal 18 - 58 mL [facility] Work Phone: [phone] LA Volume 4C 61 mL Abnormal 18 - 58 mL [facility] Work Phone: [phone] LA Volume A/L 72 mL [facility] Work Phone: [phone] LA Volume Index 2C 28 mL/m2 16 - 34 mL/m2 [facility] [employer] Work Phone: [phone] LA Volume Index 4C 27 mL/m2 16 - 34 mL/m2 [facility] [employer] Work Phone: LA Volume Index A/L 32 mL/m2 16 - 34 mL/m2 [facility] [employer] Work Phone: [phone] LV E' Lateral Velocity 8 cm/s [facility] [employer] Work Phone: [phone] LV E' Septal Velocity 5 cm/s [facility] [employer] Work Phone: [phone] LV EDV A2C 127 mL [facility] [employer] Work Phone: LV EDV A4C 178 mL [facility] [employer] Work Phone: LV EDV BP 151 mL 67 - 155 mL [facility] Work Phone: LV EDV Index A2C 56 mL/m2 [facility] Work Phone: LV EDV Index A4C 78 mL/m2 [facility] Work Phone: LV EDV Index BP 67 mL/m2 [facility] Work Phone: LV Ejection Fraction A2C 74 % [facility] Work Phone: LV Ejection Fraction A4C 69 % [facility] [employer] Work Phone: LV ESV A2C 33 mL [facility] Work Phone: LV ESV A4C 55 mL [facility] Work Phone: [phone] LV ESV BP 43 mL 22 - 58 mL [facility] Work Phone: [phone] LV ESV Index A2C 15 mL/m2 [facility] Work Phone: [phone] LV ESV Index A4C 24 mL/m2 [facility] Work Phone: [phone] LV ESV Index BP 19 mL/m2 [facility] Work Phone: [phone] LV Mass 2D 213.9 g 88 - 224 g [facility] Work Phone: [phone] LV Mass 2D Index 94.2 g/m2 49 - 115 g/m2 [facility] Work Phone: [phone] LV RWT Ratio 0.38 [facility] Work Phone: 95 LVIDd 5.3 cm 4.2 - 5.9 cm [facility] Work Phone: 95 LVIDd Index 2.33 cm/m2 [facility] Work Phone: 95 LVIDs 3.2 cm [facility] Work Phone: 95 LVIDs Index 1.41 cm/m2 [facility] Work Phone: 95 LVOT Area 3.5 cm2 [facility] Work Phone: [phone] LVOT Cardiac Output 9.6 liter/mi nu te [facility] Work Phone: 95 LVOT Diameter 2.1 cm [facility] Work Phone: [phone] LVOT Mean Gradient 4 mmHg [facility] Work Phone: 95 LVOT Peak Gradient 6 mmHg [facility] Work Phone: 95 LVOT Peak Velocity 1.2 m/s [facility] Work Phone: [phone] LVOT Stroke Volume Index 43.3 mL/m2 [facility] Work Phone: [phone] LVOT SV 98.3 ml [facility] Work Phone: [phone] LVOT VTI 28.4 cm [facility] Work Phone: [phone] LVOT:AV VTI Index 0.39 [facility] Work Phone: [phone] LVPWd 1.0 cm 0.6 - 1.0 cm [facility] Work Phone: [phone] MV A Velocity 0.75 m/s [facility] Work Phone: [phone] MV E Velocity 0.58 m/s [facility] Work Phone: [phone] MV E Wave Deceleration Time 374.2 ms [facility] Work Phone: [phone] MV E/A 0.77 [facility] Work Phone: [phone] Pulm Vein Peak D Velocity 0.3 m/s [facility] Work Phone: [phone] Pulm Vein Peak S Velocity 0.6 m/s [facility] Work Phone: [phone] Pulm Vein S/D 2.0 [facility] Work Phone: [phone] PV Max Velocity 0.9 m/s [facility] Work Phone: [phone] PV Mean Gradient 2 mmHg [facility] Work Phone: [phone] PV Mean Velocity 0.6 m/s [facility] Work Phone: [phone] PV Peak Gradient 3 mmHg [facility] Work Phone: [phone] PV VTI 19.5 cm [facility] Work Phone: [phone] RV Free Wall Peak S' 15 cm/s [facility] Work Phone: [phone] RVSP 46 mmHg [facility] Work Phone: [phone] TAPSE 2.8 cm 1.7 cm [facility] Work Phone: [phone] TR Max Velocity 3.27 m/s [facility] Work Phone: [phone] TR Peak Gradient 43 mmHg [facility] Work Phone: [phone] [facility] Work Phone: [phone] US Heart Transthoracicon Left Ventricle: Left ventricle size is normal. Normal wall thickness. Normal left ventricular systolic function. EF by 2D Simpsons Biplane is 72%. Normal wall motion. Right Ventricle: Right ventricle is mildly dilated. Normal systolic function. Aortic Valve: Moderate (2+) regurgitation with a posterolateral eccentrically directed jet and may underestimate severity. Moderate stenosis of the aortic valve. AV mean gradient is 27 mmHg. AV area by continuity VTI is 1.4 cm2. Tricuspid Valve: Mildly elevated RVSP. RVSP is 46 mmHg. Aorta: Moderately dilated sinuses of Valsalva. Sinuses of Valsalva diameter is 4.9 cm. Mildly dilated ascending aorta. Ao ascending diameter is 4.2 cm. Left Ventricle Left ventricle size is normal. Normal wall thickness. Normal left ventricular systolic function. EF by 2D Simpsons Biplane is 72%. Normal wall motion. Diastolic dysfunction present with normal LVEF. Right Ventricle Right ventricle is mildly dilated. Normal systolic function. Left Atrium Left atrium is mildly dilated. Right Atrium Right atrium size is normal. IVC/SVC IVC was not well visualized. IVC diameter is normal and decreases greater than 50% during inspiration; therefore the estimated right atrial pressure is normal (~3 mmHg). Mitral Valve Valve structure is normal. Mild annular calcification. Trace regurgitation. No stenosis noted. Tricuspid Valve Valve structure is normal. Trace regurgitation. Mildly elevated RVSP. RVSP is 46 mmHg. Aortic Valve Trileaflet. Moderately calcified cusps. Moderate (2+) regurgitation with a posterolateral eccentrically directed jet and may underestimate severity. Moderate stenosis of the aortic valve. AV mean gradient is 27 mmHg. AV area by continuity VTI is 1.4 cm2. Pulmonic Valve Valve structure is normal. Trace regurgitation. Ascending Aorta Moderately dilated sinuses of Valsalva. Sinuses of Valsalva diameter is 4.9 cm. Mildly dilated ascending aorta. Ao ascending diameter is 4.2 cm. Pericardium No pericardial effusion. Septum No interatrial shunt visualized on color Doppler. Pulmonary Artery Normal pulmonary arteries. Study Details Image quality: suboptimal. Heart rate: 56 bpm. Blood pressure: 127/57 mmHg. The underlying ECG rhythm was sinus bradycardia. Technical qualifiers: Technically difficult study with poor endocardial visualization. Ultrasound enhancement agent was given to enhance imaging. CV CPACS Basophil percentageOrdered B y: Kosta Leal on 03-31-2023 Basophil percentage 2.7 mg/dL 2.5-4.9 [place] [facility] Chloride [Moles/Vol] 110 mmol/L 98-[address] [facility] [facility] Glucose [Mass/Vol] 123 mg/dL 74-106 [facility] Comment on above: Fasting Glucose resu lt from 100 to 125 mg/dL suggests IMPAIRED HOMEOSTASIS per A.D.A. criteria. Hemoglobin (Bld) [Mass/Vol] 15.7 g/dL 13.0-16.5 [facility] Potassium [Moles/Vol] 4.0 mmol/L 3.5-5.1 [facility] Sodium [Moles/Vol] 141 mmol/L 136-145 [facility] WBC (Bld) [#/Vol] 5.9 10*3/uL 4.4-11.0 [facility] Determination of erythrocyte mean corpuscular volume (MCV)Ordered By: Kosta Leal on 03-31-2023 MCV (RBC) [Entitic vol] 89.3 fL 80-94 [facility] Erythrocyte distribution wid th ratioOrdered By: [facility] Mel on 03-31-2023 Erythrocyte distribution width (RBC) [Ratio] 12.7 % 11.6-14.6 [facility] Erythrocyte distribution wid th standard deviationOrdered By: Kosta Mel on 03-31-2023 Erythrocyte distribution width (RBC) [Entitic vol] 41.2 fL 35.1-43.9 [facility] Hematocrit Auto (Bld) [Volum e fraction]Ordered By: [facility] Mel on 03-31-2023 Hematocrit (Bld) [Volume fraction] 47.6 % 40-54 [facility] Laboratory - Chemistry and C hemistry - challengeOrdered By: Kosta Mel on 03-31-2023 CO2 [Moles/Vol] 27.0 mmol/L 21.0-32.0 [facility] Urea nitrogen/Creatinine [Mass ratio] 13.3 mg/mg 10-20 [facility] Laboratory - Hematology and Cell countsOrdered By: Kosta Mel on 03-31-2023 MCH (RBC) [Entitic mass] 29.5 pg 27.0-32.0 [facility] MCHC (RBC) [Mass/Vol] 33.0 g/dL 32-36 [facility] Platelet mean volume (Bld) [Entitic vol] 10.0 fL 6.2-12.0 [facility] Platelets (Bld) [#/Vol] 218 10*3/uL 150-450 [facility] No Panel InformationOrdered By: Kosta Leal on 03-31-2023 Estimated GFR (MDRD) Amer 84 mL/min >60 [facility] Comment on above: GFR Calc Estimated GFR (MDRD) Non-Af Amer 70 mL/min >60 [facility] Comment on above: Non- GFR Calc Parathyroid Hormone (Intact) 125.6 pg/mL 18.4-80.1 [facility] Vitamin D 25-Hydroxy 57.2 ng/mL [facility] Comment on above: Vitamin D 25(OH) Sta tus Range Deficiency <20 ng/mL (50nmol/L) Insufficiency 20 - 30 ng/mL (50 - 75 nmol/L) Sufficiency 30 - 100 ng/mL (75 - 250 nmol/L) Toxicity >100 ng/mL (>250 nmol/L) RBC Auto (Bld) [#/Vol]Ordere d By: Kosta Leal on 03-31-2023 RBC (Bld) [#/Vol] 5.33 10*6/uL 4.6-6.2 [facility] Serum or plasma calcium deya urement (mass/volume)Ordered By: Kosta Leal on 03-31-2023 Calcium [Mass/Vol] 10.4 mg/dL 8.5-10.1 [facility] Serum or plasma creatinine m easurement (mass/volume)Ordered By: Kosta Leal on 03-31-2023 Creatinine [Mass/Vol] 1.13 mg/dL 0.70-1.30 [facility] Comment on above: The validity of the calculated GFR & GFRAA in patients over 70 years has not been determined. Clinical correlation is essential. Serum or plasma urea nitroge n measurement (mass/volume)Ordered By: Kosta Leal on 03-31-2023 Urea nitrogen [Mass/Vol] 15 mg/dL 7-18 [facility] Thin prep Papanicolaou smear with manual screeningOrdered By: Kosta Leal on 03-31-2023 Protein (U) [Mass/Vol] 15.9 mg/dL 0.0-11.8 [facility] Thin prep Papanicolaou smear with manual screening 3.7 g/dL 3.2-5.0 [facility] Urine creatinine measurement (mass/volume)Ordered By: Kosta Leal on 03-31-2023 Creatinine (U) [Mass/Vol] 162.00 mg/dL NO RANGE EST. [facility] Urine protein/creatinine mas s ratioOrdered By: Kosta Mel on 03-31-2023 Protein/Creatinine (U) [Mass ratio] 98 mg/g CRE 0-200 [facility] Basophil percentageOrdered B y: Kosta Leal on 10-11-2022 Basophil percentage 2.5 mg/dL 2.5-4.9 [facility] Chloride [Moles/Vol] 112 mmol/L 98-107 [facility] Glucose [Mass/Vol] 128 mg/dL 74-106 [facility] Comment on above: Fasting Glucose resu lt greater than or equal to 126 mg/dL suggests DIABETES MELLITUS per A.D.A. criteria. Potassium [Moles/Vol] 4.3 mmol/L 3.5-5.1 [facility] Sodium [Moles/Vol] 142 mmol/L 136-145 [facility] WBC (Bld) [#/Vol] 7.1 10*3/uL 4.4-11.0 [facility] Blood erythrocytes count (nu mber/volume)Ordered By: Kosta Mel on 10-11-2022 RBC (Bld) [#/Vol] 5.27 10*6/uL 4.6-6.2 [facility] Blood hemoglobin measurement (mass/volume)Ordered By: Kosta Mel on 10-11-2022 Hemoglobin (Bld) [Mass/Vol] 15.4 g/dL 13.0-16.5 [facility] Blood platelet mean volumeOr dered By: [facility] Mel on 10-11-2022 Platelet mean volume (Bld) [Entitic vol] 9.9 fL 6.2-12.0 [facility] Determination of erythrocyte mean corpuscular volume (MCV)Ordered By: [facility] Mel on 10-11-2022 MCV (RBC) [Entitic vol] 90.7 fL 80-94 [facility] Hematocrit Auto (Bld) [Volum e fraction]Ordered By: Kosta Leal on 10-11-2022 Hematocrit (Bld) [Volume fraction] 47.8 % 40-54 [facility] Laboratory - Chemistry and C hemistry - challengeOrdered By: Kosta Leal on 10-11-2022 CO2 [Moles/Vol] 26.0 mmol/L 21.0-32.0 [facility] Urea nitrogen/Creatinine [Mass ratio] 16.4 mg/mg 10-20 [facility] Laboratory - Hematology and Cell countsOrdered By: Kosta Leal on 10-11-2022 Erythrocyte distribution width (RBC) [Entitic vol] 41.1 fL 35.1-43.9 [facility] Erythrocyte distribution width (RBC) [Ratio] 12.5 % 11.6-14.6 [facility] MCH (RBC) [Entitic mass] 29.2 pg 27.0-32.0 [facility] MCHC Auto (RBC) [Mass/Vol]Or dered By: Kosta Leal on 10-11-2022 MCHC (RBC) [Mass/Vol] 32.2 g/dL 32-36 [facility] No Panel InformationOrdered By: Kosta Leal on 10-11-2022 Estimated GFR (MDRD) Amer 77 mL/min >60 [facility] Comment on above: GFR Calc Estimated GFR (MDRD) Non-Af Amer 64 mL/min >60 [facility] Comment on above: Non- GFR Calc Parathyroid Hormone (Intact) 277.0 pg/mL 18.4-80.1 [facility] Tacrolimus (Prograf) Level 28.4 ng/mL 2.0-20.0 [facility] Comment on above: Trough (immediately following transplant) 15.0 Trough (steady state, 2 weeks or more after transplant): 3.0 - 8.0 Performed by LC-MS/MS technology.Patient drug level exceeds published reference range.Evaluate clinically for signs of potential toxicity.Performed at: [facility] [id number] Director: Neto Cullen MD, Phone: [phone] Urine Microalbumin/Creatini ne Ratio 3.5 mg/g CRE <30 [facility] Vitamin D 25-Hydroxy 44.2 ng/mL [facility] Comment on above: Vitamin D 25(OH) Sta tus Range Deficiency <20 ng/mL (50nmol/L) Insufficiency 20 - 30 ng/mL (50 - 75 nmol/L) Sufficiency 30 - 100 ng/mL (75 - 250 nmol/L) Toxicity >100 ng/mL (>250 nmol/L) Platelets bldOrdered By: [facility] Mel on 10-11-2022 Platelets (Bld) [#/Vol] 202 10*3/uL 150-450 [facility] Serum or plasma albumin deya urement (mass/volume)Ordered By: Kosta Mel on 10-11-2022 Albumin [Mass/Vol] 3.5 g/dL 3.2-5.0 [facility] Serum or plasma calcium deya urement (mass/volume)Ordered By: Kosta Leal on 10-11-2022 Calcium [Mass/Vol] 9.4 mg/dL 8.5-10.1 [facility] Serum or plasma creatinine m easurement (mass/volume)Ordered By: Kosta Leal on 10-11-2022 Creatinine [Mass/Vol] 1.22 mg/dL 0.70-1.30 [facility] Comment on above: The validity of the calculated GFR & GFRAA in patients over 70 years has not been determined. Clinical correlation is essential. Serum or plasma urea nitroge n measurement (mass/volume)Ordered By: Kosta Mel on 10-11-2022 Urea nitrogen [Mass/Vol] 20 mg/dL 7-18 [facility] Thin prep Papanicolaou smear with manual screeningOrdered By: Kosta Leal on 10-11-2022 Thin prep Papanicolaou smear with manual screening 5.6 mg/L NO RANGE EST. [facility] Urine creatinine measurement (mass/volume)Ordered By: Kosta Mel on 10-11-2022 Creatinine (U) [Mass/Vol] 158.00 mg/dL NO RANGE EST. [facility] Urine protein measurement (m ass/volume)Ordered By: Kosta Mel on 10-11-2022 Protein (U) [Mass/Vol] 20.9 mg/dL 0.0-11.8 [facility] Urine protein/creatinine mas s ratioOrdered By: Kosta Leal on 10-11-2022 Protein/Creatinine (U) [Mass ratio] 132 mg/g CRE 0-200 [facility] Absolute lymphocyte counton 05-26-2022 Lymphocytes Auto (Unsp spec) [#/Vol] 1.27 10*3/uL 0.83-4.51 [facility] Basophil percentageon 2022 Basophil percentage 2.5 mg/dL 2.5-4.9 [facility] Basophils/100 WBC (Bld) 0.9 % 0-1 [facility] Chloride [Moles/Vol] 112 mmol/L 98-107 [facility] Eosinophils/100 WBC (Bld) 1.4 % 0-5 [facility] Glucose [Mass/Vol] 117 mg/dL 74-106 [facility] Comment on above: Fasting Glucose resu lt from 100 to 125 mg/dL suggests IMPAIRED HOMEOSTASIS per A.D.A. criteria. Neutrophils (Bld) [#/Vol] 4.5 10*3/uL 2.0-7.7 [facility] Neutrophils/100 WBC (Bld) 64.9 % 47-70 [facility] Potassium [Moles/Vol] 3.9 mmol/L 3.5-5.1 [facility] Sodium [Moles/Vol] 138 mmol/L 136-145 [facility] WBC (Bld) [#/Vol] 7.0 10*3/uL 4.4-11.0 [facility] Blood erythrocytes count (nu mber/volume)on 05-26-2022 RBC (Bld) [#/Vol] 5.48 10*6/uL 4.6-6.2 [facility] Blood hemoglobin measurement (mass/volume)on 05-26-2022 Hemoglobin (Bld) [Mass/Vol] 15.8 g/dL 13.0-16.5 [facility] Blood lymphocytes/100 leukoc yteson 05-26-2022 Lymphocytes/100 WBC (Bld) 18.1 % 19-41 [facility] Blood monocytes/100 leukocyt eson 05-26-2022 Monocytes/100 WBC (Bld) 13.6 % 0-10 [facility] Blood platelet mean volumeon 05-26-2022 Platelet mean volume (Bld) [Entitic vol] 10.0 fL 6.2-12.0 [facility] Determination of erythrocyte mean corpuscular volume (MCV)on 05-26-2022 MCV (RBC) [Entitic vol] 90.7 fL 80-94 [facility] Hematocrit Auto (Bld) [Volum e fraction]on 05-26-2022 Hematocrit (Bld) [Volume fraction] 49.7 % 40-54 [facility] Laboratory - Chemistry and C hemistry - challengeon 05-26-2022 CO2 [Moles/Vol] 25.0 mmol/L 21.0-32.0 [facility] Magnesium [Mass/Vol] 1.7 mg/dL 1.6-2.6 [facility] Urea nitrogen/Creatinine [Mass ratio] 15.3 mg/mg 10-20 [facility] Laboratory - Hematology and Cell countson 05-26-2022 Erythrocyte distribution width (RBC) [Entitic vol] 41.2 fL 35.1-43.9 [facility] Erythrocyte distribution width (RBC) [Ratio] 12.5 % 11.6-14.6 [facility] Immature granulocytes/100 WBC (Bld) 1.100 % 0.0-0.9 [facility] Comment on above: IG% - Immature Granu locytes (promyelocytes, myelocytes and metamyelocytes) > 1% indicates that a LEFT SHIFT is Present. MCH (RBC) [Entitic mass] 28.8 pg 27.0-32.0 [facility] Nucleated RBC/100 WBC (Bld) [Ratio] 0 % 0-5 [facility] MCHC Auto (RBC) [Mass/Vol]on 05-26-2022 MCHC (RBC) [Mass/Vol] 31.8 g/dL 32-36 [facility] No Panel Informationon 05-26 Estimated GFR (MDRD) Amer 86 mL/min >60 [facility] Comment on above: GFR Calc Estimated GFR (MDRD) Non-Af Amer 71 mL/min >60 [facility] Comment on above: Non- GFR Calc Platelets bldon 05-26-2022 Platelets (Bld) [#/Vol] 197 10*3/uL 150-450 [facility] Serum or plasma calcium deya urement (mass/volume)on 05-26-2022 Calcium [Mass/Vol] 9.9 mg/dL 8.5-10.1 [facility] Serum or plasma creatinine m easurement (mass/volume)on 05-26-2022 Creatinine [Mass/Vol] 1.11 mg/dL 0.70-1.30 [facility] Comment on above: The validity of the calculated GFR & GFRAA in patients over 70 years has not been determined. Clinical correlation is essential. Serum or plasma urea nitroge n measurement (mass/volume)on 05-26-2022 Urea nitrogen [Mass/Vol] 17 mg/dL 7-18 [facility] Thin prep Papanicolaou smear with manual screeningon 05-26-2022 Thin prep Papanicolaou smear with manual screening 1 5-15 [facility] Absolute lymphocyte counton 03-24-2022 Lymphocytes Auto (Unsp spec) [#/Vol] 1.19 10*3/uL 0.83-4.51 [facility] Basophil percentageon 2022 Basophil percentage 2.3 mg/dL 2.5-4.9 [facility] Basophils/100 WBC (Bld) 1.0 % 0-1 [facility] Chloride [Moles/Vol] 111 mmol/L 98-107 [facility] Eosinophils/100 WBC (Bld) 2.5 % 0-5 [facility] Glucose [Mass/Vol] 123 mg/dL 74-106 [facility] Comment on above: Fasting Glucose resu lt from 100 to 125 mg/dL suggests IMPAIRED HOMEOSTASIS per A.D.A. criteria. Neutrophils (Bld) [#/Vol] 4.1 10*3/uL 2.0-7.7 [facility] Neutrophils/100 WBC (Bld) 65.5 % 47-70 [facility] Potassium [Moles/Vol] 4.0 mmol/L 3.5-5.1 [facility] Sodium [Moles/Vol] 144 mmol/L 136-145 [facility] WBC (Bld) [#/Vol] 6.3 10*3/uL 4.4-11.0 [facility] Blood erythrocytes count (nu mber/volume)on 03-24-2022 RBC (Bld) [#/Vol] 5.37 10*6/uL 4.6-6.2 [facility] Blood hemoglobin measurement (mass/volume)on 03-24-2022 Hemoglobin (Bld) [Mass/Vol] 15.3 g/dL 13.0-16.5 [facility] Blood lymphocytes/100 leukoc yteson 03-24-2022 Lymphocytes/100 WBC (Bld) 18.9 % 19-41 [facility] Blood monocytes/100 leukocyt eson 03-24-2022 Monocytes/100 WBC (Bld) 11.3 % 0-10 [facility] Blood platelet mean volumeon 03-24-2022 Platelet mean volume (Bld) [Entitic vol] 9.6 fL 6.2-12.0 [facility] Determination of erythrocyte mean corpuscular volume (MCV)on 03-24-2022 MCV (RBC) [Entitic vol] 91.6 fL 80-94 [facility] Hematocrit Auto (Bld) [Volum e fraction]on 03-24-2022 Hematocrit (Bld) [Volume fraction] 49.2 % 40-54 [facility] Laboratory - Chemistry and C hemistry - challengeon 03-24-2022 CO2 [Moles/Vol] 24.0 mmol/L 21.0-32.0 [facility] Magnesium [Mass/Vol] 1.8 mg/dL 1.6-2.6 [facility] Urea nitrogen/Creatinine [Mass ratio] 13.3 mg/mg 10-20 [facility] Laboratory - Hematology and Cell countson 03-24-2022 Erythrocyte distribution width (RBC) [Entitic vol] 42.5 fL 35.1-43.9 [facility] Erythrocyte distribution width (RBC) [Ratio] 12.7 % 11.6-14.6 [facility] Immature granulocytes/100 WBC (Bld) 0.800 % 0.0-0.9 [facility] Comment on above: IG% - Immature Granu locytes (promyelocytes, myelocytes and metamyelocytes) > 1% indicates that a LEFT SHIFT is Present. MCH (RBC) [Entitic mass] 28.5 pg 27.0-32.0 [facility] Nucleated RBC/100 WBC (Bld) [Ratio] 0 % 0-5 [facility] MCHC Auto (RBC) [Mass/Vol]on 03-24-2022 MCHC (RBC) [Mass/Vol] 31.1 g/dL 32-36 [facility] No Panel Informationon 03-24 Estimated GFR (MDRD) Amer 85 mL/min >60 [facility] Comment on above: GFR Calc Estimated GFR (MDRD) Non-Af Amer 70 mL/min >60 [facility] Comment on above: Non- GFR Calc Tacrolimus (Prograf) Level 5.4 ng/mL 2.0-20.0 [facility] Comment on above: Trough (immediately following transplant) 15.0 Trough (steady state, 2 weeks or more after transplant): 3.0 - 8.0 Performed by LC-MS/MS technology.Performed at: [employer] [address] [id number] Director: Neto Cullen MD, Phone: [phone] Platelets bldon 03-24-2022 Platelets (Bld) [#/Vol] 189 10*3/uL 150-450 [facility] Serum or plasma calcium deya urement (mass/volume)on 03-24-2022 Calcium [Mass/Vol] 9.7 mg/dL 8.5-10.1 [facility] Serum or plasma creatinine m easurement (mass/volume)on 03-24-2022 Creatinine [Mass/Vol] 1.13 mg/dL 0.70-1.30 [facility] Comment on above: The validity of the calculated GFR & GFRAA in patients over 70 years has not been determined. Clinical correlation is essential. Serum or plasma urea nitroge n measurement (mass/volume)on 03-24-2022 Urea nitrogen [Mass/Vol] 15 mg/dL 7-18 [facility] Thin prep Papanicolaou smear with manual screeningon 03-24-2022 Thin prep Papanicolaou smear with manual screening 9 5-[address] [facility] Heart TransthoracicOrdere d By: Austin Tucker on 03-22-2022 Aortic Sinus Valsalva 4.9 cm [facility] Work Phone: Aortic Sinus Valsalva Index 2.17 cm/m2 [facility] Work Phone: [phone] AR Max Velocity PISA 3.8 m/s [facility] Work Phone: [phone] AR PHT 653.7 ms [facility] Work Phone: [phone] Ascending Aorta 4.1 cm [facility] Work Phone: [phone] Ascending Aorta Index 1.81 cm/m2 [facility] Work Phone: [phone] AV Area by Peak Velocity 1.8 cm2 [facility] Work Phone: [phone] AV Area by VTI 1.9 cm2 [facility] Work Phone: [phone] AV AT 138.41 ms [facility] Work Phone: [phone] AV Mean Gradient 16 mmHg [facility] Work Phone: [phone] AV Mean Velocity 1.9 m/s [facility] Work Phone: [phone] AV Peak Gradient 28 mmHg [facility] Work Phone: [phone] AV Peak Velocity 2.7 m/s [facility] Work Phone: [phone] AV Velocity Ratio 0.37 [facility] Work Phone: [phone] AV VTI 67.3 cm [facility] Work Phone: [phone] CELINA/BSA Peak Velocity 0.8 cm2/m2 [facility] Work Phone: [phone] CELINA/BSA VTI 0.8 cm2/m2 [facility] Work Phone: [phone] E/E' Lateral 17.00 [facility] Work Phone: [phone] E/E' Ratio (Averaged) 17.00 [facility] Work Phone: [phone] E/E' Septal 17.00 [facility] Work Phone: [phone] EF BP 66 % 55 - 100 % [facility] Work Phone: [phone] Fractional Shortening 2D 28 % 28 - 44 % [facility] Work Phone: [phone] Interpretation and review of laboratory results Abnormal [facility] Work Phone: [phone] IVC Diameter 2.7 cm [facility] Work Phone: IVSd 0.9 cm 0.6 - 1.0 cm [facility] Work Phone: [phone] LA Diameter 4.5 cm [facility] Work Phone: [phone] LA Size Index 1.99 cm/m2 [facility] Work Phone: LA Volume 2C 89 mL Abnormal 18 - 58 mL [facility] Work Phone: LA Volume 4C 113 mL Abnormal 18 - 58 mL [facility] Work Phone: [phone] LA Volume A/L 113 mL [facility] Work Phone: LA Volume Index 2C 39 mL/m2 Abnormal 16 - 34 mL/m2 [facility] Work Phone: [phone] LA Volume Index 4C 50 mL/m2 Abnormal 16 - 34 mL/m2 [facility] [employer] Work Phone: LA Volume Index A/L 50 mL/m2 16 - 34 mL/m2 [facility] [employer] Work Phone: LV E' Lateral Velocity 4 cm/s [facility] [employer] Work Phone: LV E' Septal Velocity 4 cm/s [facility] [employer] Work Phone: LV EDV A2C 118 mL [facility] Work Phone: LV EDV A4C 177 mL [facility] [employer] Work Phone: LV EDV BP 146 mL 67 - 155 mL [facility] Work Phone: LV EDV Index A2C 52 mL/m2 [facility] Work Phone: LV EDV Index A4C 78 mL/m2 [facility] Work Phone: LV EDV Index BP 65 mL/m2 [facility] Work Phone: LV Ejection Fraction A2C 62 % [facility] Work Phone: LV Ejection Fraction A4C 70 % [facility] [employer] Work Phone: LV ESV A2C 45 mL [facility] Work Phone: LV ESV A4C 52 mL [facility] Work Phone: [phone] LV ESV BP 50 mL 22 - 58 mL [facility] Work Phone: [phone] LV ESV Index A2C 20 mL/m2 [facility] Work Phone: [phone] LV ESV Index A4C 23 mL/m2 [facility] Work Phone: [phone] LV ESV Index BP 22 mL/m2 [facility] Work Phone: [phone] LV Mass 2D 180.1 g 88 - 224 g [facility] Work Phone: [phone] LV Mass 2D Index 79.7 g/m2 49 - 115 g/m2 [facility] Work Phone: [phone] LV RWT Ratio 0.33 [facility] Work Phone: [phone] LVIDd 5.4 cm 4.2 - 5.9 cm [facility] Work Phone: [phone] LVIDd Index 2.39 cm/m2 [facility] Work Phone: [phone] LVIDs 3.9 cm [facility] Work Phone: [phone] LVIDs Index 1.73 cm/m2 [facility] Work Phone: 95 LVOT Area 4.9 cm2 [facility] Work Phone: [phone] LVOT Cardiac Output 6.2 liter/mi nu te [facility] Work Phone: [phone] LVOT Diameter 2.5 cm [facility] Work Phone: [phone] LVOT Mean Gradient 2 mmHg [facility] [facility] Work Phone: [phone] LVOT Peak Gradient 4 mmHg [facility] Work Phone: [phone] LVOT Peak Velocity 1.0 m/s [facility] Work Phone: [phone] LVOT Stroke Volume Index 58.8 mL/m2 [facility] Work Phone: [phone] LVOT SV 133.0 ml [facility] Work Phone: [phone] LVOT VTI 27.1 cm [facility] Work Phone: [phone] LVOT:AV VTI Index 0.40 [facility] Work Phone: [phone] LVPWd 0.9 cm 0.6 - 1.0 cm [facility] Work Phone: [phone] MV A Velocity 0.39 m/s [facility] Work Phone: [phone] MV E Velocity 0.68 m/s [facility] Work Phone: [phone] MV E Wave Deceleration Time 211.7 ms [facility] Work Phone: [phone] MV E/A 1.74 [facility] Work Phone: [phone] RV Free Wall Peak S' 10 cm/s [facility] Work Phone: [phone] Sinotubular Junction 4.6 cm [facility] Work Phone: [phone] TAPSE 2.1 cm 1.7 cm [facility] Work Phone: [phone] TR Max Velocity 2.59 [facility] Work Phone: [phone] TR Peak Gradient 27 mmHg [facility] Work Phone: [phone] [facility] Work Phone: [phone] Heart Transthoracicon Left Ventricle: Left ventricle is moderately dilated. LVIDd is 5.4 cm. LVIDs is 3.9 cm. Normal wall thickness. Normal left ventricular systolic function. EF by 2D Simpsons Biplane is 66%. Normal wall motion. Diastolic dysfunction present with increased LAP with normal LVEF. Elevated left ventricular filling pressure. E/A ratio is 1.74. Average E/e' ratio is 17.00. Right Ventricle: Right ventricle is mildly dilated. Normal systolic function. Aortic Valve: Thickening and calcification of the commisures (left and non),( non and right).. Moderate (2+) regurgitation with a posterolateral eccentrically directed jet. Prolapse of the left or right cusp is suspected. Vena contracta 5.0 mm Probably no more than mild stenosis of the aortic valve. Although AV mean gradient is 16 and AV peak gradient is 28 mmHg. AV area by continuity VTI is 1.9 cm2. The plainimetry area is 2.7 cm2. The peak and mean gradients are higher than the 2-D images and VTI valve area suggest, likely due to the increased stroke volume from the aortic regurgitation. Mitral Valve: Valve structure is normal. Mild annular calcification (anterior and posterior). Tricuspid Valve: Valve structure is normal. Trace regurgitation. Pulmonic Valve: Valve structure is normal. Mild (1+) regurgitation. Left Atrium: Left atrium is moderately dilated. Left atrium size is mildly increased (LA volume index 35-41 mL/m2). Right Atrium: Right atrium size is normal. Aorta: Normal sized annulus. Moderately dilated sinuses of Valsalva. Sinuses of Valsalva diameter is 4.9 cm. Moderately dilated ascending aorta. Ao ascending diameter is 4.1 cm. There is moderate effacement of the STJ. IVC/SVC: IVC diameter is dilated and decreases less than 50% during inspiration; therefore the estimated right atrial pressure is elevated (~15 mmHg). Left Ventricle Left ventricle is moderately dilated. LVIDd is 5.4 cm. LVIDs is 3.9 cm. Normal wall thickness. Normal left ventricular systolic function. EF by 2D Simpsons Biplane is 66%. Normal wall motion. Diastolic dysfunction present with increased LAP with normal LVEF. Elevated left ventricular filling pressure. E/A ratio is 1.74. Average E/e' ratio is 17.00. Right Ventricle Right ventricle is mildly dilated. Normal systolic function. Left Atrium Left atrium is moderately dilated. Left atrium size is mildly increased (LA volume index 35-41 mL/m2). Right Atrium Right atrium size is normal. IVC/SVC IVC diameter is dilated and decreases less than 50% during inspiration; therefore the estimated right atrial pressure is elevated (~15 mmHg). Mitral Valve Valve structure is normal. Mild annular calcification (anterior and posterior). Trace regurgitation. No stenosis noted. Tricuspid Valve Valve structure is normal. Trace regurgitation. Aortic Valve Thickening and calcification of the commisures (left and non),( non and right).. Moderate (2+) regurgitation with a posterolateral eccentrically directed jet. Prolapse of the left or right cusp is suspected. Vena contracta 5.0 mm Probably no more than mild stenosis of the aortic valve. Although AV mean gradient is 16 and AV peak gradient is 28 mmHg. AV area by continuity VTI is 1.9 cm2. The plainimetry area is 2.7 cm2. The peak and mean gradients are higher than the 2-D images and VTI valve area suggest, likely due to the increased stroke volume from the aortic regurgitation. Pulmonic Valve Valve structure is normal. Mild (1+) regurgitation. Ascending Aorta Normal sized annulus. Moderately dilated sinuses of Valsalva. Sinuses of Valsalva diameter is 4.9 cm. Moderately dilated ascending aorta. Ao ascending diameter is 4.1 cm. There is moderate effacement of the STJ. Pericardium The pericardium is normal. No pericardial effusion. Septum No interatrial shunt visualized on color Doppler. Study Details Image quality: adequate. Blood pressure: 133/67 mmHg. Technical qualifiers: Technically difficult study due to patient's body habitus. Ultrasound enhancement agent was given to enhance imaging. Wall Scoring Baseline Score Index: 1.00 The left ventricular wall motion is normal. CV CPACS Basophil percentageon 2021 Basophil percentage 3.0 mg/dL 2.5-4.9 [facility] Work Phone: Chloride [Moles/Vol] 110 mmol/L 98-107 [facility] Work Phone: Glucose [Mass/Vol] 112 mg/dL 74-106 [facility] Work Phone: Comment on above: Fasting Glucose resu lt from 100 to 125 mg/dL suggests IMPAIRED HOMEOSTASIS per A.D.A. criteria. Potassium [Moles/Vol] 4.1 mmol/L 3.5-5.1 [facility] Work Phone: Sodium [Moles/Vol] 143 mmol/L 136-145 [facility] Work Phone: [phone] WBC (Bld) [#/Vol] 6.8 10*3/uL 4.4-11.0 [facility] Work Phone: [phone] Blood erythrocytes count (nu mber/volume)on 02-01-2022 RBC (Bld) [#/Vol] 5.26 10*6/uL 4.6-6.2 [facility] Work Phone: Blood hemoglobin measurement (mass/volume)on 02-01-2022 Hemoglobin (Bld) [Mass/Vol] 14.9 g/dL 13.0-16.5 [facility] Work Phone: Blood platelet mean volumeon 02-01-2022 Platelet mean volume (Bld) [Entitic vol] 10.1 fL 6.2-12.0 [facility] Work Phone: [phone] Determination of erythrocyte mean corpuscular volume (MCV)on 02-01-2022 MCV (RBC) [Entitic vol] 90.3 fL 80-94 [facility] Work Phone: [phone] Hematocrit Auto (Bld) [Volum e fraction]on 02-01-2022 Hematocrit (Bld) [Volume fraction] 47.5 % 40-54 [facility] Work Phone: Laboratory - Chemistry and C hemistry - challengeon 02-01-2022 CO2 [Moles/Vol] 26.0 mmol/L 21.0-32.0 [facility] Work Phone: [phone] Magnesium [Mass/Vol] 1.8 mg/dL 1.6-2.6 [facility] Work Phone: [phone] Urea nitrogen/Creatinine [Mass ratio] 20.8 mg/mg 10-20 [facility] Work Phone: [phone] Laboratory - Hematology and Cell countson 02-01-2022 Erythrocyte distribution width (RBC) [Entitic vol] 41.8 fL 35.1-43.9 [facility] Work Phone: [phone] Erythrocyte distribution width (RBC) [Ratio] 12.6 % 11.6-14.6 [facility] Work Phone: [phone] MCH (RBC) [Entitic mass] 28.3 pg 27.0-32.0 [facility] Work Phone: [phone] MCHC Auto (RBC) [Mass/Vol]on 02-01-2022 MCHC (RBC) [Mass/Vol] 31.4 g/dL 32-36 [facility] Work Phone: No Panel Informationon 02-01 Estimated GFR (MDRD) Amer 91 mL/min >60 [facility] Work Phone: [phone] Comment on above: GFR Calc Estimated GFR (MDRD) Non-Af Amer 75 mL/min >60 [facility] Work Phone: Comment on above: Non- GFR Calc Tacrolimus (Prograf) Level 6.5 ng/mL 2.0-20.0 [facility] Work Phone: Comment on above: Trough (immediately following transplant) 15.0 Trough (steady state, 2 weeks or more after transplant): 3.0 - 8.0 Performed by LC-MS/MS technology.Performed at: [facility] [id number] Director: Neto Cullen MD, Phone: [phone] Platelets bldon 02-01-2022 Platelets (Bld) [#/Vol] 208 10*3/uL 150-450 [facility] Work Phone: Serum or plasma calcium deya urement (mass/volume)on 02-01-2022 Calcium [Mass/Vol] 10.0 mg/dL 8.5-10.1 [facility] Work Phone: Serum or plasma creatinine m easurement (mass/volume)on 02-01-2022 Creatinine [Mass/Vol] 1.06 mg/dL 0.70-1.30 [facility] Work Phone: Comment on above: The validity of the calculated GFR & GFRAA in patients over 70 years has not been determined. Clinical correlation is essential. Serum or plasma urea nitroge n measurement (mass/volume)on 02-01-2022 Urea nitrogen [Mass/Vol] 22 mg/dL 7-18 [facility] Work Phone: Thin prep Papanicolaou smear with manual screeningon 02-01-2022 Thin prep Papanicolaou smear with manual screening 7 5-15 [facility] Work Phone: [phone] Basophil percentageon 2021 Basophil percentage 2.4 mg/dL 2.5-4.9 [facility] Work Phone: Chloride [Moles/Vol] 108 mmol/L 98-107 [facility] Work Phone: Glucose [Mass/Vol] 110 mg/dL 74-106 [facility] Work Phone: Comment on above: Fasting Glucose resu lt from 100 to 125 mg/dL suggests IMPAIRED HOMEOSTASIS per A.D.A. criteria. Potassium [Moles/Vol] 4.1 mmol/L 3.5-5.1 [facility] Work Phone: Sodium [Moles/Vol] 139 mmol/L 136-145 [facility] Work Phone: [phone] WBC (Bld) [#/Vol] 7.7 10*3/uL 4.4-11.0 [facility] Work Phone: [phone] Blood erythrocytes count (nu mber/volume)on 11-22-2021 RBC (Bld) [#/Vol] 5.37 10*6/uL 4.6-6.2 [facility] Work Phone: [phone] Blood hemoglobin measurement (mass/volume)on 11-22-2021 Hemoglobin (Bld) [Mass/Vol] 15.4 g/dL 13.0-16.5 [facility] Work Phone: [phone] Blood platelet mean volumeon 11-22-2021 Platelet mean volume (Bld) [Entitic vol] 9.9 fL 6.2-12.0 [facility] Work Phone: [phone] Determination of erythrocyte mean corpuscular volume (MCV)on 11-22-2021 MCV (RBC) [Entitic vol] 89.4 fL 80-94 [facility] Work Phone: [phone] Hematocrit Auto (Bld) [Volum e fraction]on 11-22-2021 Hematocrit (Bld) [Volume fraction] 48.0 % 40-54 [facility] Work Phone: [phone] Laboratory - Chemistry and C hemistry - challengeon 11-22-2021 CO2 [Moles/Vol] 22.0 mmol/L 21.0-32.0 [facility] Work Phone: [phone] Magnesium [Mass/Vol] 1.6 mg/dL 1.6-2.6 [facility] Work Phone: Urea nitrogen/Creatinine [Mass ratio] 19.5 mg/mg 11-25 [facility] Work Phone: [phone] Laboratory - Hematology and Cell countson 11-22-2021 Erythrocyte distribution width (RBC) [Entitic vol] 40.7 fL 35.1-43.9 [facility] Work Phone: [phone] Erythrocyte distribution width (RBC) [Ratio] 12.4 % 11.6-14.6 [facility] Work Phone: [phone] MCH (RBC) [Entitic mass] 28.7 pg 27.0-32.0 [facility] Work Phone: [phone] MCHC Auto (RBC) [Mass/Vol]on 11-22-2021 MCHC (RBC) [Mass/Vol] 32.1 g/dL 32-36 [facility] Work Phone: No Panel Informationon 11-22 Estimated GFR (MDRD) Amer 77 mL/min >60 [facility] Work Phone: Comment on above: GFR Calc Estimated GFR (MDRD) Non-Af Amer 64 mL/min >60 [facility] Work Phone: Comment on above: Non- GFR Calc Tacrolimus (Prograf) Level 7.0 ng/mL 2.0-20.0 [facility] Work Phone: Comment on above: Trough (immediately following transplant) 15.0 Trough (steady state, 2 weeks or more after transplant): 3.0 - 8.0 Performed by LC-MS/MS technology.Performed at: - [address] [id number] Director: Neto Cullen MD, Phone: [phone] Prostate Specific Antigen Screen 3.20 ng/mL 0.00-4.00 [facility] Work Phone: Comment on above: This test was perfor med using the TPSA assay method [facility]. Values obtained with differentassay methods cannot be used interchangably.When changing PSA assays in the course of monitoring apatient, additional sequential testing should be carriedout to confirm baseline values. Platelets bldon 11-22-2021 Platelets (Bld) [#/Vol] 215 10*3/uL 150-450 [facility] Work Phone: Serum or plasma calcium deya urement (mass/volume)on 11-22-2021 Calcium [Mass/Vol] 9.8 mg/dL 8.5-10.1 [facility] Work Phone: Serum or plasma creatinine m easurement (mass/volume)on 11-22-2021 Creatinine [Mass/Vol] 1.23 mg/dL 0.70-1.30 [facility] Work Phone: Comment on above: The validity of the calculated GFR & GFRAA in patients over 70 years has not been determined. Clinical correlation is essential. Serum or plasma urea nitroge n measurement (mass/volume)on 11-22-2021 Urea nitrogen [Mass/Vol] 24 mg/dL 7-18 [facility] Work Phone: Thin prep Papanicolaou smear with manual screeningon 11-22-2021 Thin prep Papanicolaou smear with manual screening 9 5-15 [facility] Work Phone: Basophil percentageon 2021 Basophil percentage 2.2 mg/dL 2.5-4.9 [facility] Work Phone: Chloride [Moles/Vol] 110 mmol/L 98-107 [facility] Work Phone: Glucose [Mass/Vol] 115 mg/dL 74-106 [facility] Work Phone: Comment on above: Fasting Glucose resu lt from 100 to 125 mg/dL suggests IMPAIRED HOMEOSTASIS per A.D.A. criteria. Potassium [Moles/Vol] 3.9 mmol/L 3.5-5.1 [facility] Work Phone: Sodium [Moles/Vol] 141 mmol/L 136-145 [facility] Work Phone: [phone] WBC (Bld) [#/Vol] 7.6 10*3/uL 4.4-11.0 [facility] Work Phone: Blood erythrocytes count (nu mber/volume)on 09-22-2021 RBC (Bld) [#/Vol] 5.54 10*6/uL 4.6-6.2 [facility] Work Phone: [phone] Blood hemoglobin measurement (mass/volume)on 09-22-2021 Hemoglobin (Bld) [Mass/Vol] 15.9 g/dL 13.0-16.5 [facility] Work Phone: [phone] Blood platelet mean volumeon 09-22-2021 Platelet mean volume (Bld) [Entitic vol] 9.8 fL 6.2-12.0 [facility] Work Phone: [phone] Determination of erythrocyte mean corpuscular volume (MCV)on 09-22-2021 MCV (RBC) [Entitic vol] 89.7 fL 80-94 [facility] Work Phone: [phone] Hematocrit Auto (Bld) [Volum e fraction]on 09-22-2021 Hematocrit (Bld) [Volume fraction] 49.7 % 40-54 [facility] Work Phone: [phone] Laboratory - Chemistry and C hemistry - challengeon 09-22-2021 CO2 [Moles/Vol] 24.0 mmol/L 21.0-32.0 [facility] Work Phone: [phone] Magnesium [Mass/Vol] 1.8 mg/dL 1.6-2.6 [facility] Work Phone: [phone] Urea nitrogen/Creatinine [Mass ratio] 13.8 mg/mg 10-20 [facility] Work Phone: [phone] Laboratory - Hematology and Cell countson 09-22-2021 Erythrocyte distribution width (RBC) [Entitic vol] 40.8 fL 35.1-43.9 [facility] Work Phone: [phone] Erythrocyte distribution width (RBC) [Ratio] 12.5 % 11.6-14.6 [facility] Work Phone: [phone] MCH (RBC) [Entitic mass] 28.7 pg 27.0-32.0 [facility] Work Phone: MCHC Auto (RBC) [Mass/Vol]on 09-22-2021 MCHC (RBC) [Mass/Vol] 32.0 g/dL 32-36 [facility] Work Phone: No Panel Informationon 09-22 Estimated GFR (MDRD) Amer 88 mL/min >60 [facility] Work Phone: Comment on above: GFR Calc Estimated GFR (MDRD) Non-Af Amer 73 mL/min >60 [facility] Work Phone: Comment on above: Non- GFR Calc Tacrolimus (Prograf) Level 7.2 ng/mL 2.0-20.0 [facility] Work Phone: Comment on above: Trough (immediately following transplant) 15.0 Trough (steady state, 2 weeks or more after transplant): 3.0 - 8.0 Performed by LC-MS/MS technology.Performed at: [facility] [id number] Director: Neto Cullen MD, Phone: [phone] Platelets bldon 09-22-2021 Platelets (Bld) [#/Vol] 239 10*3/uL 150-450 [facility] Work Phone: Serum or plasma calcium deya urement (mass/volume)on 09-22-2021 Calcium [Mass/Vol] 9.9 mg/dL 8.5-10.1 [facility] Work Phone: Serum or plasma creatinine m easurement (mass/volume)on 09-22-2021 Creatinine [Mass/Vol] 1.09 mg/dL 0.70-1.30 [facility] Work Phone: Comment on above: The validity of the calculated GFR & GFRAA in patients over 70 years has not been determined. Clinical correlation is essential. Serum or plasma urea nitroge n measurement (mass/volume)on 09-22-2021 Urea nitrogen [Mass/Vol] 15 mg/dL 7-18 [facility] Work Phone: [phone] Thin prep Papanicolaou smear with manual screeningon 09-22-2021 Thin prep Papanicolaou smear with manual screening 7 5-15 [facility] Work Phone: [phone] Absolute lymphocyte counton 07-22-2021 Lymphocytes Auto (Unsp spec) [#/Vol] 1.00 10*3/uL 0.83-4.51 [facility] Work Phone: [phone] Basophil percentageon 2021 Cholesterol [Mass/Vol] 175 mg/dL <200 [facility] Work Phone: [phone] Comment on above: <200 mg/dL Desirable 200-240 mg/dL Borderline >240 mg/dL High Risk Triglyceride [Mass/Vol] 461 mg/dL <199 [facility] Work Phone: [phone] Comment on above: The drugs N-Acetylcy steine and Metamizole may falsely depress this assay. TRIGLYCERIDE IS GREATER THAN 400 mg/dL. LDL RESULT IS INVALID AND WILL NOT BE REPORTED.Serum Triglycerides Reference Interval Normal <150 mg/dL Borderline high 150 - 199 mg/dL High 200 - 499 mg/dL Very High > or = 500 mg/dL Basophils/100 WBC (Bld) 0.7 % 0-1 [facility] Work Phone: Bilirubin [Mass/Vol] 0.40 mg/dL 0.20-1.00 [facility] Work Phone: [phone] Comment on above: For patients on eltr ombopag therapy, use of [employer] [place] TBIL is not recommended. Chloride [Moles/Vol] 110 mmol/L 98-107 [facility] Work Phone: Eosinophils/100 WBC (Bld) 1.6 % 0-5 [facility] Work Phone: [phone] Glucose [Mass/Vol] 106 mg/dL 74-106 [facility] Work Phone: [phone] Comment on above: Fasting Glucose resu lt from 100 to 125 mg/dL suggests IMPAIRED HOMEOSTASIS per A.D.A. criteria. Neutrophils (Bld) [#/Vol] 5.1 10*3/uL 2.0-7.7 [facility] Work Phone: Neutrophils/100 WBC (Bld) 73.1 % 47-70 [facility] Work Phone: Potassium [Moles/Vol] 4.4 mmol/L 3.5-5.1 [facility] Work Phone: Protein [Mass/Vol] 7.0 g/dL 6.4-8.2 [facility] Work Phone: Sodium [Moles/Vol] 139 mmol/L 136-145 [facility] Work Phone: WBC (Bld) [#/Vol] 7.0 10*3/uL 4.4-11.0 [facility] Work Phone: Blood erythrocytes count (nu mber/volume)on 07-22-2021 RBC (Bld) [#/Vol] 5.59 10*6/uL 4.6-6.2 [facility] Work Phone: Blood hemoglobin measurement (mass/volume)on 07-22-2021 Hemoglobin (Bld) [Mass/Vol] 16.1 g/dL 13.0-16.5 [facility] Work Phone: Blood lymphocytes/100 leukoc yteson 07-22-2021 Lymphocytes/100 WBC (Bld) 14.2 % 19-41 [facility] Work Phone: Blood monocytes/100 leukocyt eson 07-22-2021 Monocytes/100 WBC (Bld) 9.4 % 0-10 [facility] Work Phone: Blood platelet mean volumeon 07-22-2021 Platelet mean volume (Bld) [Entitic vol] 9.5 fL 6.2-12.0 [facility] Work Phone: Determination of erythrocyte mean corpuscular volume (MCV)on 07-22-2021 MCV (RBC) [Entitic vol] 90.2 fL 80-94 [facility] Work Phone: Hematocrit Auto (Bld) [Volum e fraction]on 07-22-2021 Hematocrit (Bld) [Volume fraction] 50.4 % 40-54 [facility] Work Phone: Iron measurement (mass/mass) on 07-22-2021 Iron (Unsp spec) [Mass/Mass] 78 ug/dL 65-175 [facility] Work Phone: Comment on above: Slight Hemolysis, Re sult may be falsely increased. Laboratory - Chemistry and C hemistry - challengeon 07-22-2021 Transferrin [Mass/Vol] 173 mg/dL 177-329 [facility] Work Phone: Comment on above: Performed at: [place] [id number] Director: Holden Garcia PhD, Phone: [phone] ALP [Catalytic activity/Vol] 111 U/L 45-117 [facility] Work Phone: ALT [Catalytic activity/Vol] 24 U/L 16-61 [facility] Work Phone: [phone] CO2 [Moles/Vol] 23.0 mmol/L 21.0-32.0 [facility] Work Phone: Globulin (S) [Mass/Vol] 3.5 g/dL 2.2-4.2 [facility] Work Phone: [phone] Magnesium [Mass/Vol] 1.6 mg/dL 1.6-2.6 [facility] Work Phone: [phone] Urea nitrogen/Creatinine [Mass ratio] 15.9 mg/mg 10-20 [facility] Work Phone: Laboratory - Hematology and Cell countson 07-22-2021 Erythrocyte distribution width (RBC) [Entitic vol] 41.0 fL 35.1-43.9 [facility] Work Phone: [phone] Erythrocyte distribution width (RBC) [Ratio] 12.4 % 11.6-14.6 [facility] Work Phone: Immature granulocytes/100 WBC (Bld) 1.000 % 0.0-0.9 [facility] Work Phone: [phone] Comment on above: IG% - Immature Granu locytes (promyelocytes, myelocytes and metamyelocytes) > 1% indicates that a LEFT SHIFT is Present. MCH (RBC) [Entitic mass] 28.8 pg 27.0-32.0 [facility] Work Phone: [phone] Nucleated RBC/100 WBC (Bld) [Ratio] 0 % 0-5 [facility] Work Phone: [phone] MCHC Auto (RBC) [Mass/Vol]on 07-22-2021 MCHC (RBC) [Mass/Vol] 31.9 g/dL 32-36 [facility] Work Phone: [phone] Panel Informationon 07-22 Miscellaneous Test See comment [facility] Work Phone: [phone] Comment on above: TEST RESULT LIMITSBK V DNA, Quant PCR, Plasma Negative IU/mL Negative No BK DNA detected. The linear range of the assay is 22 - 100,000,000 IU/mL. TESTING PERFORMED AT [facility]. ORIGINAL REPORT ON FILE IN LAB CONTAINS ADDITIONAL TEST SITE INFORMATION. Total Iron Binding Capacity 302 ug/dL 250-450 [facility] Work Phone: [phone] Estimated GFR (MDRD) Amer 85 mL/min >60 [facility] Work Phone: [phone] Comment on above: GFR Calc Estimated GFR (MDRD) Non-Af Amer 70 mL/min >60 [facility] Work Phone: [phone] Comment on above: Non- GFR Calc Tacrolimus (Prograf) Level 7.4 ng/mL 2.0-20.0 [facility] Work Phone: Comment on above: Trough (immediately following transplant) 15.0 Trough (steady state, 2 weeks or more after transplant): 3.0 - 8.0 Performed by LC-MS/MS technology.Performed at: [facility] [id number] Director: Neto Cullen MD, Phone: [phone] Platelets bldon 07-22-2021 Platelets (Bld) [#/Vol] 193 10*3/uL 150-450 [facility] Work Phone: Serum or plasma albumin deya urement (mass/volume)on 07-22-2021 Albumin [Mass/Vol] 3.5 g/dL 3.2-5.0 [facility] Work Phone: Serum or plasma albumin/glob ulin mass ratioon 07-22-2021 Albumin/Globulin [Mass ratio] 1.0 {ratio} 0.9-2.4 [facility] Work Phone: Serum or plasma calcium deya urement (mass/volume)on 07-22-2021 Calcium [Mass/Vol] 10.6 mg/dL 8.5-10.1 [facility] Work Phone: Serum or plasma cholesterol in HDL measurement (mass/volume)on 07-22-2021 Cholesterol in HDL [Mass/Vol] 34 mg/dL >40 [facility] Work Phone: Comment on above: The drugs N-Acetylcy steine and Metamizole may falsely depress this assay. Reference Range HDL <40 mg/dL Low HDL Cholesterol HDL >or= 60 mg/dL High HDL Cholesterol Serum or plasma cholesterol in VLDL measurement (mass/volume)on 07-22-2021 Cholesterol in VLDL [Mass/Vol] TNP [facility] Work Phone: Comment on above: Test not performed Serum or plasma creatinine m easurement (mass/volume)on 07-22-2021 Creatinine [Mass/Vol] 1.13 mg/dL 0.70-1.30 [facility] Work Phone: Comment on above: The validity of the calculated GFR & GFRAA in patients over 70 years has not been determined. Clinical correlation is essential. Serum or plasma ferritin imani surement (mass/volume)on 07-22-2021 Ferritin [Mass/Vol] 801 ng/mL 26-388 [facility] Work Phone: Serum or plasma iron saturat ion measurement (mass fraction)on 07-22-2021 Iron saturation [Mass fraction] 25.8 % 15.0-55.0 [facility] Work Phone: Serum or plasma low density lipoprotein (LDL) cholesterol measurement (mass/volume)on 07-22-2021 Cholesterol in LDL [Mass/Vol] TNP [facility] Work Phone: Comment on above: Test not performed Serum or plasma urea nitroge n measurement (mass/volume)on 07-22-2021 Urea nitrogen [Mass/Vol] 18 mg/dL 7-18 [facility] Work Phone: Serum or plasma uric acid me asurement (mass/volume)on 07-22-2021 Urate [Mass/Vol] 6.5 mg/dL 3.5-7.2 [facility] Work Phone: Comment on above: The drugs N-Acetylcy steine and Metamizole may falsely depress this assay. Thin prep Papanicolaou smear with manual screeningon 07-22-2021 Thin prep Papanicolaou smear with manual screening 15 U/L 15-37 [facility] Work Phone: [phone] Thin prep Papanicolaou smear with manual screening 6 5-15 [facility] Work Phone: [phone] Urine creatinine measurement (mass/volume)on 07-22-2021 Creatinine (U) [Mass/Vol] 68.20 mg/dL NO RANGE EST. [facility] Work Phone: Urine protein measurement (m ass/volume)on 07-22-2021 Protein (U) [Mass/Vol] 12.9 mg/dL 0.0-11.8 [facility] Work Phone: [phone] Urine protein/creatinine mas s ratioon 07-22-2021 Protein/Creatinine (U) [Mass ratio] 189 mg/g CRE 0-200 [facility] Work Phone: EP PROCEDURE - EPS/ABLATION/ DEVICEon 07-07-2021 EP PROCEDURE - EPS/ABLATION/DEVICE ? Wide are PV circumferential isolation This is a 61 y/o male with CKD s/p renal txp, symptomatic PAF who was referred for AF ablation. Findings: 1) Patient arrived in the EP lab in SR. Right femoral venous access obtained without difficulty using ultrasound guidance. 2) Successful double transeptal puncture with ICE guidance. 3) 3D electroanatomic mapping of the LA, KATYA and all 4 pulmonary veins using Pentray catheter. LA bipolar voltage mapping showed normal voltage. There was no right phrenic capture around RSPV with high output pacing. 4) Successful PVI of all 4 pulmonary. Both right and left veins were isolated after the first pass. Esophageal temperature was monitored with temp probe. The esophageal location was identified using a multipolar catheter inserted inside the temp probe, and registered on the 3D LA map. There was no esophageal heating noted. 5) No effusion post RFA with ICE Comprehensive EP study was performed at baseline state 1) prolonged SNRT. 2) Normal AV node function, normal infranodal conduction 3) No evidence of accessory pathway. 4) No evidence of dual AV node physiology 5) VAD Hemostasis method: Perclose x 3 Recommendations: 1) Bedrest 2 hours 2) ASA 81 mg daily until follow-up 3) Pantoprazole 40 mg daily for one month 4) Resume home anticoagulation regimen with xarelto. 5) Follow-up in 3 months with Denzel or EP TUBE ROOM CASHIER 6) Asymptomatic Event monitor in 2 months. 7) can be discharged same day, per pt's preference. Edmond Lama EP Procedure - EPS/Ablation/Device Ordering Physician: AZALEA LEIGH Order #: [id number] Study Date: 07/06/2021 Patient Information Name MRN Description Edmond Lama [id number] 61 y.o. male Physicians Panel Physicians Referring Physician Case Authorizing Physician Azalea Leigh MD (Primary) CARMENZA Bejarano MD Procedures AFIB Ablation Pre Procedure Diagnosis PAF (paroxysmal atrial fibrillation) [I48.0] Post Procedure Diagnosis PAF (paroxysmal atrial fibrillation) [I48.0] Indications PAF (paroxysmal atrial fibrillation) [I48.0 (ICD-10-CM)] Conclusion ? Wide are PV circumferential isolation This is a 61 y/o male with CKD s/p renal txp, symptomatic PAF who was referred for AF ablation. Findings: 1) Patient arrived in the EP lab in SR. Right femoral venous access obtained without difficulty using ultrasound guidance. 2) Successful double transeptal puncture with ICE guidance. 3) 3D electroanatomic mapping of the LA, KATYA and all 4 pulmonary veins using Pentray catheter. LA bipolar voltage mapping showed normal voltage. There was no right phrenic capture around RSPV with high output pacing. 4) Successful PVI of all 4 pulmonary. Both right and left veins were isolated after the first pass. Esophageal temperature was monitored with temp probe. The esophageal location was identified using a multipolar catheter inserted inside the temp probe, and registered on the 3D LA map. There was no esophageal heating noted. 5) No effusion post RFA with ICE Comprehensive EP study was performed at baseline state 1) prolonged SNRT. 2) Normal AV node function, normal infranodal conduction 3) No evidence of accessory pathway. 4) No evidence of dual AV node physiology 5) VAD Hemostasis method: Perclose x 3 Recommendations: 1) Bedrest 2 hours 2) ASA 81 mg daily until follow-up 3) Pantoprazole 40 mg daily for one month 4) Resume home anticoagulation regimen with xarelto. 5) Follow-up in 3 months with [facility] or EP TUBE ROOM CASHIER 6) Asymptomatic Event monitor in 2 months. 7) can be discharged same day, per pt's preference. Consent The procedure was explained including the potential risks of infection, heart perforation, re-operation, and other risks pertinent to procedure. Informed consent and permission to proceed was given. Site Preparation On the day of the procedure, the patient was brought to the operating room and the groin prepped with chloraprep. Site prepped by RT Dana. The patient was draped in the usual sterile manner. Site prepped by Frida Meade RN. Interval Collection conditions: baseline. Type of rhythm: sinus bradycardia. Ventricular cycle length: 1226 ms. P-R interval: 154 ms. QRS duration: 406 ms. QT interval: 406 ms. Corrected QT interval: 366.67 ms. H-V: 38 ms. Atrial Pacing Atrial site studied: left atrium via coronary sinus. Collection conditions: baseline. Longest SNRT: 2600 ms. Sinus cycle length: 1250 ms. CSNRT: 1350 ms. AV Wenckebach interval: [address] cycle length: 600 ms. Fast pathway AVERP: 350 ms. Ventricular Pacing Site paced: right ventricle. Collection conditions: baseline. Ventriculoatrial dissociation. Ablation Ablation Site: pulmonary veins. Arrhythmia Type: atrial fibrillation. System used: Carto (3D). Catheter successful. Energy type: radio frequency. Irrigation method: open irrigation cool (more content not included)... Normal [facility] ACT* LOW RANGE, POCon 2021 ACT-LR, POC 330 High [facility] ACT-LR, POC 394 High [facility] CBC AND ELECTRONIC DIFFon Basophils (Bld) [#/Vol] 10*3/uL Normal 0.00-0.09 [facility] Comment on above: Performed By: #### L [id number] #### [facility] (DEFAULT) [address] [address] Basophils/100 WBC (Bld) 0.5 % Normal [facility] Comment on above: Performed By: #### L [id number] #### [facility] (DEFAULT) [address] [address] DIFF STATUS Electronic Differential Normal [facility] Comment on above: Performed By: #### L [id number] #### [facility] (DEFAULT) [address] [place] [address] Eosinophils (Bld) [#/Vol] 0.14 10*3/uL Normal 0.00-0.48 [facility] Comment on above: Performed By: #### L [id number] #### [facility] (DEFAULT) [address] [address] Eosinophils/100 WBC (Bld) 2.3 % Normal [facility] Comment on above: Performed By: #### L [id number] #### [facility] (DEFAULT) [address] [place] [address] Hematocrit (Bld) [Volume fraction] 47.8 % Normal 39.6-48.8 [facility] Comment on above: Performed By: #### L [id number] #### [facility] (DEFAULT) [address] [address] Hemoglobin (Bld) [Mass/Vol] 15.8 g/dL Normal 13.4-16.8 [facility] Comment on above: Performed By: #### L [id number] #### [facility] (DEFAULT) [address] [address] Immature Grans % 0.8 % Normal [facility] Comment on above: Performed By: #### L [id number] #### [facility] (DEFAULT) [address] [address] Immature Grans Absolute 0.05 K/uL Normal <=0.08 [facility] Comment on above: Performed By: #### L [id number] #### [facility] (DEFAULT) [address] [address] Lymphocytes (Bld) [#/Vol] 0.93 10*3/uL Normal 0.83-3.57 [facility] Comment on above: Performed By: #### L [id number] #### [facility] (DEFAULT) [address] [address] Lymphocytes/100 WBC (Bld) 15.1 % Normal [facility] Comment on above: Performed By: #### L [id number] #### [facility] (DEFAULT) [address] [address] MCV (RBC) [Entitic vol] 88.8 fL Normal 79.0-94.5 [facility] Comment on above: Performed By: #### L [id number] #### [facility] (DEFAULT) [address] [address] Mean Cell Hgb 29.4 pg Normal 26.1-33.3 [facility] Comment on above: Performed By: #### L [id number] #### [facility] (DEFAULT) [address] [address] Mean Cell Hgb Conc 33.1 g/dL Normal 31.9-36.5 [facility] Comment on above: Performed By: #### L [id number] #### [facility] (DEFAULT) [address] [address] Monocytes (Bld) [#/Vol] 0.72 10*3/uL Normal 0.24-0.93 [facility] Comment on above: Performed By: #### L [id number] #### [facility] (DEFAULT) [address] [address] Monocytes/100 WBC (Bld) 11.7 % Normal [facility] Comment on above: Performed By: #### L [id number] #### [facility] (DEFAULT) [address] [address] Nucleated RBC 0.0 /100 WBC Normal <=0.2 [facility] Comment on above: Performed By: #### L [id number] #### [facility] (DEFAULT) [address] [address] Platelet mean volume (Bld) [Entitic vol] 9.8 fL Normal 8.7-12.3 [facility] Comment on above: Performed By: #### L [id number] #### [facility] (DEFAULT) [address] [address] Platelets (Bld) [#/Vol] 217 10*3/uL Normal 146-337 [facility] Comment on above: Performed By: #### L [id number] #### [facility] (DEFAULT) [address] [address] RBC (Bld) [#/Vol] 5.38 10*6/uL Normal 4.38-5.83 [facility] Comment on above: Performed By: #### L [id number] #### [facility] (DEFAULT) [address] [address] RBC Distribution 12.9 % Normal 10.9-14.3 [facility] Comment on above: Performed By: #### L [id number] #### [facility] (DEFAULT) [address] [place] [address] Segs + Bands Auto 69.6 % Normal [facility] Comment on above: Performed By: #### L [id number] #### [facility] (DEFAULT) [address] [place] [address] Segs + Bands,Absolute Auto 4.28 K/uL Normal 1.57-6.19 [facility] Comment on above: Performed By: #### L [id number] #### [facility] (DEFAULT) [address] [place] [address] WBC (Bld) [#/Vol] 6.15 10*3/uL Normal 3.73-10.10 [facility] Comment on above: Performed By: #### L [id number] #### [facility] (DEFAULT) [address] [place] [address] Basophils (Bld) [#/Vol] 10*3/uL 0.00 - 0.09 K/uL [facility] Basophils/100 WBC (Bld) 0.5 % [facility] Differential cell count method Nom (Bld) Electronic Differential [facility] Eosinophils (Bld) [#/Vol] 0.14 10*3/uL 0.00 - 0.48 K/uL [facility] Eosinophils/100 WBC (Bld) 2.3 % [facility] Erythrocyte distribution width (RBC) [Ratio] 12.9 % 10.9 - 14.3 % [facility] Hematocrit (Bld) [Volume fraction] 47.8 % 39.6 - 48.8 % [facility] Hemoglobin (Bld) [Mass/Vol] 15.8 g/dL 13.4 - 16.8 g/dL [facility] Immature granulocytes (Bld) [#/Vol] 0.05 10*3/uL <=0.08 [facility] Immature granulocytes/100 WBC (Bld) 0.8 % [facility] Lymphocytes (Bld) [#/Vol] 0.93 10*3/uL 0.83 - 3.57 K/uL [facility] Lymphocytes/100 WBC (Bld) 15.1 % [facility] MCH (RBC) [Entitic mass] 29.4 pg 26.1 - 33.3 pg [facility] MCHC (RBC) [Mass/Vol] 33.1 g/dL 31.9 - 36.5 g/dL [facility] MCV (RBC) [Entitic vol] 88.8 fL 79.0 - 94.5 fL [facility] Monocytes (Bld) [#/Vol] 0.72 10*3/uL 0.24 - 0.93 K/uL [facility] Monocytes/100 WBC (Bld) 11.7 % [facility] Neutrophils (Bld) [#/Vol] 4.28 10*3/uL 1.57 - 6.19 K/uL [facility] Nucleated RBC/100 WBC (Bld) [Ratio] 0.0 % <=0.2 /100 WBC [facility] Platelet mean volume (Bld) [Entitic vol] 9.8 fL 8.7 - 12.3 fL [facility] Platelets (Bld) [#/Vol] 217 10*3/uL 146 - 337 K/uL [facility] RBC (Bld) [#/Vol] 5.38 10*6/uL [facility] Segmented neutrophils/100 WBC (Bld) 69.6 % [facility] WBC (Bld) [#/Vol] 6.15 10*3/uL 3.73 - 10.10 K/uL [facility] CHEM 7 (LYTES,BUN,CREA,GLUC) on 07-06-2021 Anion gap [Moles/Vol] 13 mmol/L Normal 7-17 [facility] Comment on above: Performed By: #### C HM7 #### [facility] (DEFAULT) [address] [place] [address] Chloride [Moles/Vol] 111 mmol/L High 98-108 [facility] Comment on above: Performed By: #### C HM7 #### [facility] (DEFAULT) [address] [place] [address] CO2 [Moles/Vol] 20 mmol/L Low 21-31 [facility] Comment on above: Performed By: #### C HM7 #### [facility] (DEFAULT) [address] [place] [address] Creatinine [Mass/Vol] 1.08 mg/dL Normal 0.70-1.30 [facility] Comment on above: Performed By: #### C HM7 #### [facility] (DEFAULT) [address] [place] [address] GFR/1.73 sq M.predicted among non-blacks MDRD (S/P/Bld) [Vol rate/Area] 78 mL/min/{1.73_m2} Normal >=60 [facility] Comment on above: Result Comment: Repo rted eGFR is based on the CKD-EPI 2020 equation using creatinine, age, and sex. Performed By: #### C HM7 #### [facility] (DEFAULT) [address] [place] [address] Glucose [Mass/Vol] 111 mg/dL High 70-99 [facility] Comment on above: Performed By: #### C HM7 #### [facility] (DEFAULT) [address] [place] [address] Osmolality [Osmolality] 297 mosm/kg Normal 278-305 [facility] Comment on above: Performed By: #### C HM7 #### [facility] (DEFAULT) [address] [place] [address] Potassium [Moles/Vol] 4.4 mmol/L Normal 3.5-5.0 [facility] Comment on above: Performed By: #### C HM7 #### [facility] (DEFAULT) [address] [place] [address] Sodium [Moles/Vol] 140 mmol/L Normal 135-145 [facility] Comment on above: Performed By: #### C HM7 #### [facility] (DEFAULT) [address] [place] [address] Urea nitrogen [Mass/Vol] 21 mg/dL Normal 7-25 [facility] Comment on above: Performed By: #### C HM7 #### [facility] (DEFAULT) [address] [place] [address] Urea nitrogen/Creatinine [Mass ratio] 19 mg/mg Normal [facility] Comment on above: Performed By: #### C HM7 #### [facility] (DEFAULT) [address] [place] [address] Anion gap [Moles/Vol] 13 mmol/L 7 - 17 mmol/L [facility] Chloride [Moles/Vol] 111 mmol/L High 98 - 10 8 mmol/L [facility] CO2 [Moles/Vol] 20 mmol/L Low 21 - 31 mmol/L [facility] Creatinine [Mass/Vol] 1.08 mg/dL 0.70 - 1.30 mg/dL [facility] GFR/1.73 sq M.predicted CKD-EPI (S/P/Bld) [Vol rate/Area] 78 >=60 mL/min/1.7 3m2 [facility] Comment on above: Reported eGFR is bas ed on the CKD-EPI 2020 equation using creatinine, age, and sex. Glucose [Mass/Vol] 111 mg/dL High 70 - 99 mg/dL [facility] Interpretation and review of laboratory results Abnormal [facility] Osmolality Calc [Osmolality] 297 [facility] Potassium [Moles/Vol] 4.4 mmol/L 3.5 - 5.0 mmol/L [facility] Sodium [Moles/Vol] 140 mmol/L 135 - 145 mmol/L [facility] Urea nitrogen [Mass/Vol] 21 mg/dL 7 - 25 mg/dL [facility] Urea nitrogen/Creatinine [Mass ratio] 19 mg/mg [facility] ECHOCARDIOGRAM TRANSESOPHAGE AL (JONO)on 07-06-2021 ECHOCARDIOGRAM TRANSESOPHAGEAL (JONO) Exam aborted as patient was in sinus rhythm. Facility [facility] Patient Information Patient Name Edmond Lama Legal Sex Male Indication for Exam Priority: Routine Dx: PAF (paroxysmal atrial fibrillation) [I48.0 (ICD-10-CM)] Comments: Noel Gee or Mely Brumfield to schedule Same day as procedure Interpretation Summary Exam aborted as patient was in sinus rhythm. Findings Left Ventricle Diastolic function not assessed. Reading Providers Reading Role Read Date Justice Schmidt MD Test Vibrator Equipment Tester, Echo [place] 07/06/2021 Performing Staff Leah Cummings RN Study Details The risks and alternatives of the procedure and conscious sedation were explained to the patient/family member and/or their power of associate attorney. Informed consent was obtained. All staff members involved in the procedure completed a timeout prior to the start of the procedure verifying correct patient identity and correct procedure to be performed. A transesophageal echocardiography study was performed. Total time physician provided [id number] service beginning with the administration of sedation medications until the patient was sufficiently recovered after the procedure was 0 minutes. There were no complications. Exam Details Performed Procedure Technologist Supporting Staff Performing Physician PROCEDURE ABORTED/NOT PERFORMED HAYDEN Finney MD Appointment Date/Status Modality Department 07/06/2021 Arrived JONO TESTING, [facility] ECHOCARDIOGRAPHY ROSS Begin Exam End Exam 07/06/2021 7:43 AM 07/06/2021 8:40 AM Moderate sedation provided by performing physician. Vitals Height Weight BSA (Calculated - sq m) BP Pulse 1.753 m (5' 9) 108.9 kg (240 lb) 2.23 m2 104/58 45 JONO Sedation Medications Sedation Medications: Today (07/06/2021) 07:56 to 08:31 Time Event Details User 07:56:39 Documentation Start Leah Cummings RN 08:23:32 Medication Ordered and Given midazolam (VERSED) injection - Dose: 2 mg ; Route: Intravenous ; Line: Peripheral IV Line - Single Lumen 07/06/21 0641 basilic vein (medial side of arm), right 18 gauge Ordered by: MD Russell Acevedo MD 08:28:23 Medication Ordered and Given fentaNYL (SUBLIMAZE) injection - Dose: 50 mcg ; Route: Intravenous ; Line: Peripheral IV Line - Single Lumen 07/06/21 0641 basilic vein (medial side of arm), right 18 gauge Ordered by: MD Russell Acevedo MD 08:29:49 Medication Not Given fentaNYL (SUBLIMAZE) injection - Dose: 50 mcg ; Route: Intravenous ; Line: Peripheral IV Line - Single Lumen 07/06/21 0641 basilic vein (medial side of arm), right 18 gauge ; Reason: Other ; Comment: duplicate documentation Leah Cummings RN 08:31:51 Documentation End Leah Cummings RN JONO Documentation Sedation/Intra-procedure Log Signed at 0909 EDT Order Report Order Details Encounter View Encounter External Results Report Open External Results Report Patient Release Status: This result is viewable by the patient in MyChart. ECHOCARDIOGRAM TRANSESOPHAGEAL (JONO): Patient Communication Released Not seen ABN Associated with this Order There is no ABN associated with this order. Normal [facility] No Panel Informationon 07-06 ACT-LR, POC >400 High [facility] Interpretation and review of laboratory results Abnormal [facility] Test performed at ad dress of the patient encounter. [facility] PT,INR,PTTon 07-06-2021 aPTT Coag (Bld) [Time] 32.6 s Normal 24.0-34.3 [facility] Comment on above: Performed By: #### P TPTT #### [facility] (DEFAULT) [address] [address] INR Coag (PPP) [Relative time] 1.1 {INR} Normal 0.9-1.1 [facility] Comment on above: Performed By: #### P TPTT #### [facility] (DEFAULT) [address] [place] [address] PT Coag (PPP) [Time] 14.1 s Normal 11.9-14.2 [facility] Comment on above: Performed By: #### P TPTT #### [facility] (DEFAULT) [address] [place] [address] aPTT Coag (PPP) [Time] 32.6 s [facility] INR Coag (Bld) [Relative time] 1.1 {INR} [facility] Interpretation and review of laboratory results Normal [facility] PT Coag (PPP) [Time] 14.1 s [facility] Basophil percentageon 2021 Chloride [Moles/Vol] 111 mmol/L 98-107 [facility] Work Phone: [phone] Glucose [Mass/Vol] 90 mg/dL 74-106 [facility] Work Phone: Potassium [Moles/Vol] 4.1 mmol/L 3.5-5.1 [facility] Work Phone: Sodium [Moles/Vol] 140 mmol/L 136-145 [facility] Work Phone: [phone] WBC (Bld) [#/Vol] 7.0 10*3/uL 4.4-11.0 [facility] Work Phone: Blood erythrocytes count (nu mber/volume)on 06-22-2021 RBC (Bld) [#/Vol] 5.23 10*6/uL 4.6-6.2 [facility] Work Phone: Blood hemoglobin measurement (mass/volume)on 06-22-2021 Hemoglobin (Bld) [Mass/Vol] 15.2 g/dL 13.0-16.5 [facility] Work Phone: Blood platelet mean volumeon 06-22-2021 Platelet mean volume (Bld) [Entitic vol] 10.1 fL 6.2-12.0 [facility] Work Phone: Determination of erythrocyte mean corpuscular volume (MCV)on 06-22-2021 MCV (RBC) [Entitic vol] 89.9 fL 80-94 [facility] Work Phone: [phone] Hematocrit Auto (Bld) [Volum e fraction]on 06-22-2021 Hematocrit (Bld) [Volume fraction] 47.0 % 40-54 [facility] Work Phone: [phone] Laboratory - Chemistry and C hemistry - challengeon 06-22-2021 CO2 [Moles/Vol] 23.0 mmol/L 21.0-32.0 [facility] Work Phone: [phone] Laboratory - Hematology and Cell countson 06-22-2021 Erythrocyte distribution width (RBC) [Entitic vol] 40.7 fL 35.1-43.9 [facility] Work Phone: [phone] Erythrocyte distribution width (RBC) [Ratio] 12.4 % 11.6-14.6 [facility] Work Phone: [phone] MCH (RBC) [Entitic mass] 29.1 pg 27.0-32.0 [facility] Work Phone: [phone] MCHC Auto (RBC) [Mass/Vol]on 06-22-2021 MCHC (RBC) [Mass/Vol] 32.3 g/dL 32-36 [facility] Work Phone: No Panel Informationon 06-22 Estimated GFR (MDRD) Amer 86 mL/min >60 [facility] Work Phone: [phone] Comment on above: GFR Calc Estimated GFR (MDRD) Non-Af Amer 71 mL/min >60 [facility] Work Phone: [phone] Comment on above: Non- GFR Calc Tacrolimus (Prograf) Level 6.1 ng/mL 2.0-20.0 [facility] Work Phone: [phone] Comment on above: Trough (immediately following transplant) 15.0 Trough (steady state, 2 weeks or more after transplant): 3.0 - 8.0 Performed by LC-MS/MS technology.Performed at: [address], [place] [id number] Director: Neto Cullen MD, Phone: [phone] Platelets bldon 06-22-2021 Platelets (Bld) [#/Vol] 211 10*3/uL 150-450 [facility] Work Phone: [phone] Serum or plasma creatinine m easurement (mass/volume)on 06-22-2021 Creatinine [Mass/Vol] 1.12 mg/dL 0.70-1.30 [facility] Work Phone: [phone] Comment on above: The validity of the calculated GFR & GFRAA in patients over 70 years has not been determined. Clinical correlation is essential. Serum or plasma urea nitroge n measurement (mass/volume)on 06-22-2021 Urea nitrogen [Mass/Vol] 22 mg/dL 08-23 [facility] Work Phone: [phone] Thin prep Papanicolaou smear with manual screeningon 06-22-2021 Thin prep Papanicolaou smear with manual screening 6 5-15 [facility] Work Phone: Basophil percentageon 2021 Chloride [Moles/Vol] 107 mmol/L 98-107 [facility] Work Phone: [phone] Glucose [Mass/Vol] 89 mg/dL 74-106 [facility] Work Phone: [phone] Potassium [Moles/Vol] 4.0 mmol/L 3.5-5.1 [facility] Work Phone: [phone] Sodium [Moles/Vol] 139 mmol/L 136-145 [facility] Work Phone: [phone] WBC (Bld) [#/Vol] 7.6 10*3/uL 4.4-11.0 [facility] Work Phone: [phone] Blood erythrocytes count (nu mber/volume)on 05-24-2021 RBC (Bld) [#/Vol] 5.49 10*6/uL 4.6-6.2 [facility] Work Phone: [phone] Blood hemoglobin measurement (mass/volume)on 05-24-2021 Hemoglobin (Bld) [Mass/Vol] 16.0 g/dL 13.0-16.5 [facility] Work Phone: [phone] Blood platelet mean volumeon 05-24-2021 Platelet mean volume (Bld) [Entitic vol] 10.1 fL 6.2-12.0 [facility] Work Phone: [phone] Determination of erythrocyte mean corpuscular volume (MCV)on 05-24-2021 MCV (RBC) [Entitic vol] 88.9 fL 80-94 [facility] Work Phone: [phone] Hematocrit Auto (Bld) [Volum e fraction]on 05-24-2021 Hematocrit (Bld) [Volume fraction] 48.8 % 40-54 [facility] Work Phone: [phone] Laboratory - Chemistry and C hemistry - challengeon 05-24-2021 CO2 [Moles/Vol] 25.0 mmol/L 21.0-32.0 [facility] Work Phone: [phone] Laboratory - Hematology and Cell countson 05-24-2021 Erythrocyte distribution width (RBC) [Entitic vol] 40.9 fL 35.1-43.9 [facility] Work Phone: [phone] Erythrocyte distribution width (RBC) [Ratio] 12.5 % 11.6-14.6 [facility] Work Phone: [phone] MCH (RBC) [Entitic mass] 29.1 pg 27.0-32.0 [facility] Work Phone: [phone] MCHC Auto (RBC) [Mass/Vol]on 05-24-2021 MCHC (RBC) [Mass/Vol] 32.8 g/dL 32-36 [facility] Work Phone: [phone] No Panel Informationon 05-24 Estimated GFR (MDRD) Amer 85 mL/min >60 [facility] Work Phone: [phone] Comment on above: GFR Calc Estimated GFR (MDRD) Non-Af Amer 70 mL/min >60 [facility] Work Phone: [phone] Comment on above: Non- GFR Calc Tacrolimus (Prograf) Level 7.0 ng/mL [facility] Work Phone: Comment on above: Trough (immediately following transplant) 15.0 Trough (steady state, 2 weeks or more after transplant): 3.0 - 8.0 Performed by LC-MS/MS technology.Performed at: [facility] [id number] Director: Neto Cullen MD, Phone: [phone] Platelets bldon 05-24-2021 Platelets (Bld) [#/Vol] 211 10*3/uL 150-450 [facility] Work Phone: Serum or plasma creatinine m easurement (mass/volume)on 05-24-2021 Creatinine [Mass/Vol] 1.13 mg/dL 0.70-1.30 [facility] Work Phone: Comment on above: The validity of the calculated GFR & GFRAA in patients over 70 years has not been determined. Clinical correlation is essential. Serum or plasma urea nitroge n measurement (mass/volume)on 05-24-2021 Urea nitrogen [Mass/Vol] 21 mg/dL 08-23 [facility] Work Phone: [phone] Thin prep Papanicolaou smear with manual screeningon 05-24-2021 Thin prep Papanicolaou smear with manual screening 7 -15 [facility] Work Phone: Absolute lymphocyte counton 04-27-2021 Lymphocytes Auto (Unsp spec) [#/Vol] 1.06 10*3/uL 0.83-4.51 [facility] Work Phone: [phone] Basophil percentageon 2021 Basophils/100 WBC (Bld) 0.5 % 0-1 [facility] Work Phone: Bilirubin [Mass/Vol] 0.50 mg/dL 0.20-1.00 [facility] Work Phone: Comment on above: For patients on eltr ombopag therapy, use of [place] TBIL is not recommended. Chloride [Moles/Vol] 111 mmol/L 98-107 [facility] Work Phone: Eosinophils/100 WBC (Bld) 2.0 % 0-5 [facility] Work Phone: Glucose [Mass/Vol] 85 mg/dL 74-106 [facility] Work Phone: Neutrophils (Bld) [#/Vol] 4.1 10*3/uL 2.0-7.7 [facility] Work Phone: Neutrophils/100 WBC (Bld) 67.1 % 47-70 [facility] Work Phone: Potassium [Moles/Vol] 4.2 mmol/L 3.5-5.1 [facility] Work Phone: Protein [Mass/Vol] 6.8 g/dL 6.4-8.2 [facility] Work Phone: Sodium [Moles/Vol] 140 mmol/L 136-145 [facility] Work Phone: WBC (Bld) [#/Vol] 6.1 10*3/uL 4.4-11.0 [facility] Work Phone: Blood erythrocytes count (nu mber/volume)on 04-27-2021 RBC (Bld) [#/Vol] 5.24 10*6/uL 4.6-6.2 [facility] Work Phone: Blood hemoglobin measurement (mass/volume)on 04-27-2021 Hemoglobin (Bld) [Mass/Vol] 15.4 g/dL 13.0-16.5 [facility] Work Phone: Blood lymphocytes/100 leukoc yteson 04-27-2021 Lymphocytes/100 WBC (Bld) 17.4 % 19-41 [facility] Work Phone: Blood monocytes/100 leukocyt eson 04-27-2021 Monocytes/100 WBC (Bld) 12.2 % 0-10 [facility] Work Phone: Blood platelet mean volumeon 04-27-2021 Platelet mean volume (Bld) [Entitic vol] 9.7 fL 6.2-12.0 [facility] Work Phone: [phone] Determination of erythrocyte mean corpuscular volume (MCV)on 04-27-2021 MCV (RBC) [Entitic vol] 88.5 fL 80-94 [facility] Work Phone: [phone] Hematocrit Auto (Bld) [Volum e fraction]on 04-27-2021 Hematocrit (Bld) [Volume fraction] 46.4 % 40-54 [facility] Work Phone: [phone] Laboratory - Chemistry and C hemistry - challengeon 04-27-2021 ALP [Catalytic activity/Vol] 91 U/L 45-117 [facility] Work Phone: [phone] ALT [Catalytic activity/Vol] 22 U/L 16-61 [facility] Work Phone: [phone] CO2 [Moles/Vol] 25.0 mmol/L 21.0-32.0 [facility] Work Phone: [phone] Globulin (S) [Mass/Vol] 3.1 g/dL 2.2-4.2 [facility] Work Phone: [phone] Magnesium [Mass/Vol] 1.9 mg/dL 1.6-2.6 [facility] Work Phone: [phone] Urea nitrogen/Creatinine [Mass ratio] 15.9 mg/mg 10-20 [facility] Work Phone: [phone] Laboratory - Hematology and Cell countson 04-27-2021 Erythrocyte distribution width (RBC) [Entitic vol] 40.7 fL 35.1-43.9 [facility] Work Phone: [phone] Erythrocyte distribution width (RBC) [Ratio] 12.5 % 11.6-14.6 [facility] Work Phone: [phone] Immature granulocytes/100 WBC (Bld) 0.800 % 0.0-0.9 [facility] Work Phone: [phone] Comment on above: IG% - Immature Granu locytes (promyelocytes, myelocytes and metamyelocytes) > 1% indicates that a LEFT SHIFT is Present. MCH (RBC) [Entitic mass] 29.4 pg 27.0-32.0 [facility] Work Phone: Nucleated RBC/100 WBC (Bld) [Ratio] 0 % 0-5 [facility] Work Phone: [phone] MCHC Auto (RBC) [Mass/Vol]on 04-27-2021 MCHC (RBC) [Mass/Vol] 33.2 g/dL 32-36 [facility] Work Phone: No Panel Informationon 04-27 Estimated GFR (MDRD) Amer 90 mL/min >60 [facility] Work Phone: Comment on above: GFR Calc Estimated GFR (MDRD) Non-Af Amer 75 mL/min >60 [facility] Work Phone: Comment on above: Non- GFR Calc Tacrolimus (Prograf) Level 6.5 ng/mL [facility] Work Phone: Comment on above: Trough (immediately following transplant) 15.0 Trough (steady state, 2 weeks or more after transplant): 3.0 - 8.0 Performed by LC-MS/MS technology.Performed at: [address] [id number] Director: Neto Cullen MD, Phone: [phone] Platelets bldon 04-27-2021 Platelets (Bld) [#/Vol] 205 10*3/uL 150-450 [facility] Work Phone: [phone] Serum or plasma albumin deya urement (mass/volume)on 04-27-2021 Albumin [Mass/Vol] 3.7 g/dL 3.2-5.0 [facility] Work Phone: [phone] Serum or plasma albumin/glob ulin mass ratioon 04-27-2021 Albumin/Globulin [Mass ratio] 1.2 {ratio} 0.9-2.4 [facility] Work Phone: [phone] Serum or plasma calcium deya urement (mass/volume)on 04-27-2021 Calcium [Mass/Vol] 9.4 mg/dL 8.5-10.1 [facility] Work Phone: Serum or plasma creatinine m easurement (mass/volume)on 04-27-2021 Creatinine [Mass/Vol] 1.07 mg/dL 0.70-1.30 [facility] Work Phone: Comment on above: The validity of the calculated GFR & GFRAA in patients over 70 years has not been determined. Clinical correlation is essential. Serum or plasma urea nitroge n measurement (mass/volume)on 04-27-2021 Urea nitrogen [Mass/Vol] 17 mg/dL 7-18 [facility] Work Phone: Thin prep Papanicolaou smear with manual screeningon 04-27-2021 Thin prep Papanicolaou smear with manual screening 15 U/L 15-37 [facility] Work Phone: Thin prep Papanicolaou smear with manual screening 4 5-15 [facility] Work Phone: Basophil percentageon 2021 Basophil percentage 0 SEEN /hpf [facility] Work Phone: Basophil percentage 2.6 mg/dL 2.5-4.9 [facility] Work Phone: Bilirubin [Mass/Vol] 0.70 mg/dL 0.20-1.00 [facility] Work Phone: Comment on above: For patients on eltr ombopag therapy, use of [place] TBIL is not recommended. Chloride [Moles/Vol] 109 mmol/L 98-107 [facility] Work Phone: Glucose [Mass/Vol] 87 mg/dL 74-106 [facility] Work Phone: Potassium [Moles/Vol] 4.2 mmol/L 3.5-5.1 [facility] Work Phone: Protein [Mass/Vol] 6.9 g/dL 6.4-8.2 [facility] Work Phone: Sodium [Moles/Vol] 140 mmol/L 136-145 [facility] Work Phone: WBC (Bld) [#/Vol] 6.6 10*3/uL 4.4-11.0 [facility] Work Phone: Bilirubin Test strip Ql (U)o n 03-24-2021 Bilirubin Ql (U) Negative Negative [facility] Work Phone: Blood erythrocytes count (nu mber/volume)on 03-24-2021 RBC (Bld) [#/Vol] 5.17 10*6/uL 4.6-6.2 [facility] Work Phone: Blood hemoglobin measurement (mass/volume)on 03-24-2021 Hemoglobin (Bld) [Mass/Vol] 15.4 g/dL 13.0-16.5 [facility] Work Phone: Blood platelet mean volumeon 03-24-2021 Platelet mean volume (Bld) [Entitic vol] 10.2 fL 6.2-12.0 [facility] Work Phone: Determination of erythrocyte mean corpuscular volume (MCV)on 03-24-2021 MCV (RBC) [Entitic vol] 89.7 fL 80-94 [facility] Work Phone: Hematocrit Auto (Bld) [Volum e fraction]on 03-24-2021 Hematocrit (Bld) [Volume fraction] 46.4 % 40-54 [facility] Work Phone: Ketones Test strip Ql (U)on 03-24-2021 Ketones Ql (U) Negative Negative [facility] Work Phone: Laboratory - Chemistry and C hemistry - challengeon 03-24-2021 ALP [Catalytic activity/Vol] 92 U/L 45-117 [facility] Work Phone: [phone] ALT [Catalytic activity/Vol] 25 U/L 16-61 [facility] Work Phone: CO2 [Moles/Vol] 24.0 mmol/L 21.0-32.0 [facility] Work Phone: Globulin (S) [Mass/Vol] 3.3 g/dL 2.2-4.2 [facility] Work Phone: [phone] Magnesium [Mass/Vol] 1.8 mg/dL 1.6-2.6 [facility] Work Phone: [phone] Urea nitrogen/Creatinine [Mass ratio] 17.4 mg/mg 10-20 [facility] Work Phone: [phone] Laboratory - Hematology and Cell countson 03-24-2021 Erythrocyte distribution width (RBC) [Entitic vol] 41.3 fL 35.1-43.9 [facility] Work Phone: [phone] Erythrocyte distribution width (RBC) [Ratio] 12.5 % 11.6-14.6 [facility] Work Phone: [phone] MCH (RBC) [Entitic mass] 29.8 pg 27.0-32.0 [facility] Work Phone: [phone] MCHC Auto (RBC) [Mass/Vol]on 03-24-2021 MCHC (RBC) [Mass/Vol] 33.2 g/dL 32-36 [facility] Work Phone: [phone] Mucus LM Ql (Urine sed)on Mucus Ql (Urine sed) 0 SEEN /hpf [facility] Work Phone: [phone] Nitrite Test strip Ql (U)on 03-24-2021 Nitrite Ql (U) Negative Negative [facility] Work Phone: [phone] No Panel Informationon 03-24 Estimated GFR (MDRD) Amer 83 mL/min >60 [facility] Work Phone: [phone] Comment on above: GFR Calc Estimated GFR (MDRD) Non-Af Amer 69 mL/min >60 [facility] Work Phone: [phone] Comment on above: Non- GFR Calc Parathyroid Hormone (Intact) 289.8 pg/mL 18.4-80.1 [facility] Work Phone: [phone] Tacrolimus (Prograf) Level 5.9 ng/mL [facility] Work Phone: [phone] Comment on above: Trough (immediately following transplant) 15.0 Trough (steady state, 2 weeks or more after transplant): 3.0 - 8.0 Performed by LC-MS/MS technology.Performed at: [address] [id number] Director: Neto Cullen MD, Phone: [phone] Urine Microalbumin/Creatini ne Ratio 6.9 mg/g CRE <30 [facility] Work Phone: [phone] Vitamin D 25-Hydroxy 26.5 ng/mL [facility] Work Phone: [phone] Comment on above: Vitamin D 25(OH) Sta tus Range Deficiency <20 ng/mL (50nmol/L) Insufficiency 20 - 30 ng/mL (50 - 75 nmol/L) Sufficiency 30 - 100 ng/mL (75 - 250 nmol/L) Toxicity >100 ng/mL (>250 nmol/L) Platelets bldon 03-24-2021 Platelets (Bld) [#/Vol] 223 10*3/uL 150-450 [facility] Work Phone: [phone] Protein Test strip Ql (U)on 03-24-2021 Protein Ql (U) 15 mg/dl Negative [facility] Work Phone: [phone] Serum or plasma albumin deya urement (mass/volume)on 03-24-2021 Albumin [Mass/Vol] 3.6 g/dL 3.2-5.0 [facility] Work Phone: [phone] Serum or plasma albumin/glob ulin mass ratioon 03-24-2021 Albumin/Globulin [Mass ratio] 1.1 {ratio} 0.9-2.4 [facility] Work Phone: [phone] Serum or plasma calcium deya urement (mass/volume)on 03-24-2021 Calcium [Mass/Vol] 9.2 mg/dL 8.5-10.1 [facility] Work Phone: [phone] Serum or plasma creatinine m easurement (mass/volume)on 03-24-2021 Creatinine [Mass/Vol] 1.15 mg/dL 0.70-1.30 [facility] Work Phone: Comment on above: The validity of the calculated GFR & GFRAA in patients over 70 years has not been determined. Clinical correlation is essential. Serum or plasma urea nitroge n measurement (mass/volume)on 03-24-2021 Urea nitrogen [Mass/Vol] 20 mg/dL 7-18 [facility] Work Phone: Squamous epithelial cells de tection in urine sediment by light microscopyon 03-24-2021 Epithelial cells.squamous LM Ql (Urine sed) 0 SEEN /hpf [facility] Work Phone: Thin prep Papanicolaou smear with manual screeningon 03-24-2021 Thin prep Papanicolaou smear with manual screening 18 U/L 15-37 [facility] Work Phone: Thin prep Papanicolaou smear with manual screening 7 5-15 [facility] Work Phone: Thin prep Papanicolaou smear with manual screening 10.1 mg/L NO RANGE EST. [facility] Work Phone: Urine blood detectionon 03-09 RBC Ql (U) Negative Negative [facility] Work Phone: RBC Ql (U) 0 SEEN /hpf [facility] Work Phone: Urine clarityon 03-24-2021 Clarity (U) Clear Clear [facility] Work Phone: Urine color determinationon 03-24-2021 Color (U) Yellow Yellow [facility] Work Phone: Urine creatinine measurement (mass/volume)on 03-24-2021 Creatinine (U) [Mass/Vol] 147.00 mg/dL NO RANGE EST. [facility] Work Phone: Urine glucose detectionon Glucose Ql (U) Normal mg/dl Normal [facility] Work Phone: Urine leukocyte esterase det ection by dipstickon 03-24-2021 Leukocyte esterase Test strip Ql (U) Negative Negative [facility] Work Phone: Urine pHon 03-24-2021 pH (U) 6.0 [pH] [facility] Work Phone: Urine sediment bacteria coun t by microscopy (number/high power field)on 03-24-2021 Bacteria LM.HPF (Urine sed) [#/Area] 0 /[HPF] None Seen [facility] Work Phone: Urine specific gravity measu rementon 03-24-2021 Specific gravity (U) [Rel density] 1.020 [facility] Work Phone: Urobilinogen Auto test strip Ql (U)on 03-24-2021 Urobilinogen Ql (U) Normal mg/dl Normal [facility] Work Phone: Absolute lymphocyte counton 02-22-2021 Lymphocytes Auto (Unsp spec) [#/Vol] 1.22 10*3/uL 0.83-4.51 [facility] Work Phone: Basophil percentageon 2021 Basophils/100 WBC (Bld) 0.8 % 0-1 [facility] Work Phone: Chloride [Moles/Vol] 107 mmol/L 98-107 [facility] Work Phone: Eosinophils/100 WBC (Bld) 1.7 % 0-5 [facility] Work Phone: Glucose [Mass/Vol] 94 mg/dL 74-106 [facility] Work Phone: Neutrophils (Bld) [#/Vol] 4.7 10*3/uL 2.0-7.7 [facility] Work Phone: Neutrophils/100 WBC (Bld) 66.3 % 47-70 [facility] Work Phone: Potassium [Moles/Vol] 4.0 mmol/L 3.5-5.1 [facility] Work Phone: Sodium [Moles/Vol] 139 mmol/L 136-145 [facility] Work Phone: WBC (Bld) [#/Vol] 7.1 10*3/uL 4.4-11.0 [facility] Work Phone: Blood erythrocytes count (nu mber/volume)on 02-22-2021 RBC (Bld) [#/Vol] 5.47 10*6/uL 4.6-6.2 [facility] Work Phone: Blood hemoglobin measurement (mass/volume)on 02-22-2021 Hemoglobin (Bld) [Mass/Vol] 15.7 g/dL 13.0-16.5 [facility] Work Phone: Blood lymphocytes/100 leukoc yteson 02-22-2021 Lymphocytes/100 WBC (Bld) 17.1 % 19-41 [facility] Work Phone: Blood monocytes/100 leukocyt eson 02-22-2021 Monocytes/100 WBC (Bld) 12.8 % 0-10 [facility] Work Phone: Blood platelet mean volumeon 02-22-2021 Platelet mean volume (Bld) [Entitic vol] 10.2 fL 6.2-12.0 [facility] Work Phone: Determination of erythrocyte mean corpuscular volume (MCV)on 02-22-2021 MCV (RBC) [Entitic vol] 88.8 fL 80-94 [facility] Work Phone: Hematocrit Auto (Bld) [Volum e fraction]on 02-22-2021 Hematocrit (Bld) [Volume fraction] 48.6 % 40-54 [facility] Work Phone: Laboratory - Chemistry and C hemistry - challengeon 02-22-2021 CO2 [Moles/Vol] 25.0 mmol/L 21.0-32.0 [facility] Work Phone: Laboratory - Hematology and Cell countson 02-22-2021 Erythrocyte distribution width (RBC) [Entitic vol] 41.0 fL 35.1-43.9 [facility] Work Phone: [phone] Erythrocyte distribution width (RBC) [Ratio] 12.5 % 11.6-14.6 [facility] Work Phone: [phone] Immature granulocytes/100 WBC (Bld) 1.300 % 0.0-0.9 [facility] Work Phone: Comment on above: IG% - Immature Granu locytes (promyelocytes, myelocytes and metamyelocytes) > 1% indicates that a LEFT SHIFT is Present. MCH (RBC) [Entitic mass] 28.7 pg 27.0-32.0 [facility] Work Phone: [phone] Nucleated RBC/100 WBC (Bld) [Ratio] 0 % 0-5 [facility] Work Phone: MCHC Auto (RBC) [Mass/Vol]on 02-22-2021 MCHC (RBC) [Mass/Vol] 32.3 g/dL 32-36 [facility] Work Phone: No Panel Informationon 02-22 Estimated GFR (MDRD) Amer 91 mL/min >60 [facility] Work Phone: Comment on above: GFR Calc Estimated GFR (MDRD) Non-Af Amer 76 mL/min >60 [facility] Work Phone: Comment on above: Non- GFR Calc Tacrolimus (Prograf) Level 7.9 ng/mL [facility] Work Phone: Comment on above: Trough (immediately following transplant) 15.0 Trough (steady state, 2 weeks or more after transplant): 3.0 - 8.0 Performed by LC-MS/MS technology.Performed at: [address] [id number] Director: Neto Cullen MD, Phone: [phone] Platelets bldon 02-22-2021 Platelets (Bld) [#/Vol] 222 10*3/uL 150-450 [facility] Work Phone: [phone] Serum or plasma creatinine m easurement (mass/volume)on 02-22-2021 Creatinine [Mass/Vol] 1.06 mg/dL 0.70-1.30 [facility] Work Phone: [phone] Comment on above: The validity of the calculated GFR & GFRAA in patients over 70 years has not been determined. Clinical correlation is essential. Serum or plasma urea nitroge n measurement (mass/volume)on 02-22-2021 Urea nitrogen [Mass/Vol] 26 mg/dL 7-18 [facility] Work Phone: Thin prep Papanicolaou smear with manual screeningon 02-22-2021 Thin prep Papanicolaou smear with manual screening 7 5-15 [facility] Work Phone: [phone] Absolute lymphocyte counton 01-22-2021 Lymphocytes Auto (Unsp spec) [#/Vol] 0.52 10*3/uL 0.83-4.51 [facility] Work Phone: Basophil percentageon 2020 Basophil percentage 2.7 mg/dL 2.5-4.9 [facility] Work Phone: [phone] Bilirubin [Mass/Vol] 0.90 mg/dL 0.20-1.00 [facility] Work Phone: Comment on above: For patients on eltr ombopag therapy, use of Dimension [place] TBIL is not recommended. Chloride [Moles/Vol] 113 mmol/L 98-107 [facility] Work Phone: Cholesterol [Mass/Vol] 189 mg/dL <200 [facility] Work Phone: Comment on above: <200 mg/dL Desirable 200-240 mg/dL Borderline >240 mg/dL High Risk Eosinophils/100 WBC (Bld) 0.8 % 0-5 [facility] Work Phone: Glucose [Mass/Vol] 102 mg/dL 74-106 [facility] Work Phone: Comment on above: Fasting Glucose resu lt from 100 to 125 mg/dL suggests IMPAIRED HOMEOSTASIS per A.D.A. criteria.Please note revised GLUCOSE reference range effective 2017. Neutrophils (Bld) [#/Vol] 5.8 10*3/uL 2.0-7.7 [facility] Work Phone: [phone] Potassium [Moles/Vol] 4.2 mmol/L 3.5-5.1 [facility] Work Phone: Protein [Mass/Vol] 7.2 g/dL 6.4-8.2 [facility] Work Phone: Sodium [Moles/Vol] 144 mmol/L 136-145 [facility] Work Phone: Triglyceride [Mass/Vol] 213 mg/dL [facility] Work Phone: Comment on above: The drugs N-Acetylcy steine and Metamizole may falsely depress this assay.Serum Triglycerides Reference Interval Normal <150 mg/dL Borderline high 150 - 199 mg/dL High 200 - 499 mg/dL Very High > or = 500 mg/dL WBC (Bld) [#/Vol] 7.1 10*3/uL 4.4-11.0 [facility] Work Phone: Blood erythrocytes count (nu mber/volume)on 01-22-2021 RBC (Bld) [#/Vol] 5.52 10*6/uL 4.6-6.2 [facility] Work Phone: Blood hemoglobin measurement (mass/volume)on 01-22-2021 Hemoglobin (Bld) [Mass/Vol] 15.9 g/dL 13.0-16.5 [facility] Work Phone: Blood lymphocytes/100 leukoc yteson 01-22-2021 Lymphocytes/100 WBC (Bld) 7.3 % 19-41 [facility] Work Phone: Blood monocytes/100 leukocyt eson 01-22-2021 Monocytes/100 WBC (Bld) 9.9 % 0-10 [facility] Work Phone: Blood platelet mean volumeon 01-22-2021 Platelet mean volume (Bld) [Entitic vol] 9.9 fL 6.2-12.0 [facility] Work Phone: Determination of erythrocyte mean corpuscular volume (MCV)on 01-22-2021 MCV (RBC) [Entitic vol] 90.4 fL 80-94 [facility] Work Phone: Hematocrit Auto (Bld) [Volum e fraction]on 01-22-2021 Hematocrit (Bld) [Volume fraction] 49.9 % 40-54 [facility] Work Phone: Iron measurement (mass/mass) on 01-22-2021 Iron (Unsp spec) [Mass/Mass] 77 ug/dL 65-175 [facility] Work Phone: Laboratory - Chemistry and C hemistry - challengeon 01-22-2021 ALP [Catalytic activity/Vol] 102 U/L 45-117 [facility] Work Phone: ALT [Catalytic activity/Vol] 28 U/L 16-61 [facility] Work Phone: [phone] CO2 [Moles/Vol] 27.0 mmol/L 21.0-32.0 [facility] Work Phone: Globulin (S) [Mass/Vol] 3.6 g/dL 2.2-4.2 [facility] Work Phone: Magnesium [Mass/Vol] 1.9 mg/dL 1.6-2.6 [facility] Work Phone: Urea nitrogen/Creatinine [Mass ratio] 18.8 mg/mg 10-20 [facility] Work Phone: Laboratory - Hematology and Cell countson 01-22-2021 Basophils/100 WBC (Unsp spec) 0.4 % 0-1 [facility] Work Phone: Erythrocyte distribution width (RBC) [Entitic vol] 41.5 fL 35.1-43.9 [facility] Work Phone: Erythrocyte distribution width (RBC) [Ratio] 12.5 % 11.6-14.6 [facility] Work Phone: Immature granulocytes/100 WBC (Bld) 0.600 % 0.0-0.9 [facility] Work Phone: Comment on above: IG% - Immature Granu locytes (promyelocytes, myelocytes and metamyelocytes) > 1% indicates that a LEFT SHIFT is Present. MCH (RBC) [Entitic mass] 28.8 pg 27.0-32.0 [facility] Work Phone: Neutrophils/100 WBC (Bld) 81.0 % 47-70 [facility] Work Phone: [phone] Nucleated RBC/100 WBC (Bld) [Ratio] 0 % 0-5 [facility] Work Phone: MCHC Auto (RBC) [Mass/Vol]on 01-22-2021 MCHC (RBC) [Mass/Vol] 31.9 g/dL 32-36 [facility] Work Phone: No Panel Informationon 01-22 Estimated GFR (MDRD) Amer 86 mL/min >60 [facility] Work Phone: Comment on above: GFR Calc Estimated GFR (MDRD) Non-Af Amer 71 mL/min >60 [facility] Work Phone: Comment on above: Non- GFR Calc Miscellaneous Test See comment [facility] Work Phone: Comment on above: TEST RESULT LIMITSBK Quantitation PCR Negative copies/mL Negative No BK DNA detected. The quantitative range of this assay is 200 to 10 million copies/mL.This test was developed and its performance characteristics determined by [employer]. It has not been cleared or approved by the Food and Drug Administration. The FDA has determined that such clearance or approval is not necessary.log10 BK Qn PCR Unable to calculate result since non-numeric result obtained for component test. TESTING PERFORMED AT [facility]. ORIGINAL REPORT ON FILE IN LAB CONTAINS ADDITIONAL TEST SITE INFORMATION. Tacrolimus (Prograf) Level 7.9 ng/mL [facility] Work Phone: Comment on above: Trough (immediately following transplant) 15.0 Trough (steady state, 2 weeks or more after transplant): 3.0 - 8.0 Performed by LC-MS/MS technology.Performed at: [address] [id number] Director: Neto Cullen MD, Phone: [phone] Total Iron Binding Capacity 231 ug/dL 250-450 [facility] Work Phone: Platelets bldon 01-22-2021 Platelets (Bld) [#/Vol] 188 10*3/uL 150-450 [facility] Work Phone: Serum or plasma albumin deya urement (mass/volume)on 01-22-2021 Albumin [Mass/Vol] 3.6 g/dL 3.2-5.0 [facility] Work Phone: Serum or plasma albumin/glob ulin mass ratioon 01-22-2021 Albumin/Globulin [Mass ratio] 1.0 {ratio} 0.9-2.4 [facility] Work Phone: Serum or plasma calcium deya urement (mass/volume)on 01-22-2021 Calcium [Mass/Vol] 10.0 mg/dL 8.5-10.1 [facility] Work Phone: Serum or plasma cholesterol in HDL measurement (mass/volume)on 01-22-2021 Cholesterol in HDL [Mass/Vol] 47 mg/dL [facility] Work Phone: Comment on above: The drugs N-Acetylcy steine and Metamizole may falsely depress this assay. Reference Range HDL <40 mg/dL Low HDL Cholesterol HDL >or= 60 mg/dL High HDL Cholesterol Serum or plasma cholesterol in VLDL measurement (mass/volume)on 01-22-2021 Cholesterol in VLDL [Mass/Vol] 43 mg/dL 5-40 [facility] Work Phone: [phone] Serum or plasma creatinine m easurement (mass/volume)on 01-22-2021 Creatinine [Mass/Vol] 1.12 mg/dL 0.70-1.30 [facility] Work Phone: Comment on above: The validity of the calculated GFR & GFRAA in patients over 70 years has not been determined. Clinical correlation is essential. Serum or plasma ferritin imani surement (mass/volume)on 01-22-2021 Ferritin [Mass/Vol] 907 ng/mL 26-388 [facility] Work Phone: [phone] Serum or plasma iron saturat ion measurement (mass fraction)on 01-22-2021 Iron saturation [Mass fraction] 33.3 % 15.0-55.0 [facility] Work Phone: Serum or plasma low density lipoprotein (LDL) cholesterol measurement (mass/volume)on 01-22-2021 Cholesterol in LDL [Mass/Vol] 99 mg/dL 0-130 [facility] Work Phone: Serum or plasma urea nitroge n measurement (mass/volume)on 01-22-2021 Urea nitrogen [Mass/Vol] 21 mg/dL 7-18 [facility] Work Phone: Serum or plasma uric acid me asurement (mass/volume)on 01-22-2021 Urate [Mass/Vol] 6.5 mg/dL 3.5-7.2 [facility] Work Phone: Comment on above: The drugs N-Acetylcy steine and Metamizole may falsely depress this assay. Thin prep Papanicolaou smear with manual screeningon 01-22-2021 Thin prep Papanicolaou smear with manual screening 15 U/L 15-37 [facility] Work Phone: [phone] Thin prep Papanicolaou smear with manual screening 4 5-15 [facility] Work Phone: Urine creatinine measurement (mass/volume)on 01-22-2021 Creatinine (U) [Mass/Vol] 112.00 mg/dL NO RANGE EST. [facility] Work Phone: Urine protein measurement (m ass/volume)on 01-22-2021 Protein (U) [Mass/Vol] 26.1 mg/dL 0.0-11.8 [facility] Work Phone: Urine protein/creatinine mas s ratioon 01-22-2021 Protein/Creatinine (U) [Mass ratio] 233 mg/g CRE 0-200 [facility] Work Phone: ECHO Complete 2D W Doppler W ColorOrdered By: Sarah Charles on 11-23-2020 TRANSTHORACIC ECHOCARDIOGRAM PATIENT: Edmond Lama STUDY DATE: 11/23/2020 : 1960 AGE: 60 HT/WT: 175.3 cm (69 106.1 kg in) (233.5 lb) GENDER: M BP: 123 / 73 LOCATION: [facility] PATIENT Outpatient [facility] STATUS: *ORDERING PHYSICIAN: * Sarah Charles *RN: * Cindy Segura *READING PHYSICIAN: * Nick *GASOLINE TESTER: * Aliza Sotelo RDCS, MD Leroy AE, RVT, [place] INDICATIONS: 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 CONCLUSIONS SUMMARY: 1. Left ventricle: There is mild concentric hypertrophy. Systolic function is normal by the biplane method of disks. The estimated ejection fraction is 64%. 2. Right ventricle: The cavity size is moderately dilated. Right ventricular systolic pressure is within the normal range. 3. Left atrium: The atrium is mildly dilated. 4. Right atrium: The atrium is mildly dilated. 5. Aortic valve: Trileaflet; mildly calcified leaflets. There is mild stenosis. There is mild-moderate, 1-2+ regurgitation. The mean systolic gradient is 13 mm Hg. The peak systolic gradient is 22 mm Hg. The valve area by the velocity-time integral method is 2.2 cm^2. The valve area index by the velocity-time integral method is 1 cm^2/m^2. 6. Aortic root: The aortic root is mildly dilated. STUDY DATA: Complete transthoracic echocardiogram. Procedure: Image quality was poor. The study was technically limited due to poor acoustic window availability and respiratory interference. Intravenous imaging enhancement (Definity) was administered to opacify the chamber. Definity lot #: [id number]. M-mode, complete 2D, complete spectral Doppler, and color flow Doppler images were acquired and archived for permanent storage and are available for subsequent review. Study status: Routine. Patient status: Outpatient. FINDINGS LEFT VENTRICLE: The cavity size is normal. Wall thickness is mildly increased. There is mild concentric hypertrophy. Systolic function is normal by the biplane method of disks. The estimated ejection fraction is 64%. There are no regional wall motion abnormalities. Left ventricular diastolic function parameters are normal. RIGHT VENTRICLE: The cavity size is moderately dilated. Systolic function is normal. Right ventricular systolic pressure is within the normal range. VENTRICULAR SEPTUM: There is no evidence of a ventricular septal defect. LEFT ATRIUM: The atrium is mildly dilated. RIGHT ATRIUM: The atrium is mildly dilated. ATRIAL SEPTUM: Doppler shows no shunt. There is no evidence of right to left shunting with injection of agitated saline contrast. There is redundancy of the septum, with borderline criteria for aneurysm. MITRAL VALVE: Structurally normal valve. Leaflet separation is normal. Doppler: Transvalvular velocity is within the normal range. There is no evidence for stenosis. There is trivial, less than 1+ regurgitation. AORTIC VALVE: Trileaflet; mildly calcified leaflets. Doppler: There is mild stenosis. There is mild-moderate, 1-2+ regurgitation. Dimensionless index: 0.45. The valve area by the velocity-time integral method is 2.2 cm^2. The valve area index by the velocity-time integral method is 1 cm^2/m^2. The mean systolic gradient is 13 mm Hg. The peak systolic gradient is 22 mm Hg. The peak systolic velocity is 2.3 m/sec. TRICUSPID VALVE: Structurally normal valve. Leaflet separation is normal. Doppler: Transvalvular velocity is within the normal range. There is no evidence for stenosis. There is trivial, less than 1+ regurgitation. PULMONIC VALVE: Structurally normal valve. Cusp separation is normal. Doppler: Transvalvular velocity is within the normal range. There is trivial, less than 1+ regurgitation. AORTA: Aortic root: The aortic root is mildly dilated. Ascending aorta: The ascending aorta is mildly dilated. PERICARDIUM: There is no pericardial effusion. SYSTEMIC VEINS: Inferior vena cava: Not well visualized. Measurements Value 09/25/2018 Reference Aortic root ID, ED (H) 4.8 cm <4.4 (sinus) Value 09/25/2018 Reference Ascending aorta ID, A-P, 3.9 cm 4.4 S Ascending aorta ID/bsa, 1.7 cm/m^2 A-P, S Value 09/25/2018 Reference (more content not included)... [employer] Work Phone: [place], [employer] Incoming Cardiology Results From [facility] - 11/23/2020 4:54 PM EDT TRANSTHORACIC ECHOCARDIOGRAM PATIENT: Edmond Lama STUDY DATE: 11/23/2020 : 1960 AGE: 60 HT/WT: 175.3 cm (69 106.1 kg in) (233.5 lb) GENDER: M BP: 123 / 73 LOCATION: [facility] PATIENT Outpatient [facility] STATUS: *ORDERING PHYSICIAN: * Sarah Charles *RN: * Cindy Segura *READING PHYSICIAN: * Nick *GASOLINE TESTER: * Aliza Sotelo RDCS, MD Leroy AE, RVT, [place] INDICATIONS: 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 CONCLUSIONS SUMMARY: 1. Left ventricle: There is mild concentric hypertrophy. Systolic function is normal by the biplane method of disks. The estimated ejection fraction is 64%. 2. Right ventricle: The cavity size is moderately dilated. Right ventricular systolic pressure is within the normal range. 3. Left atrium: The atrium is mildly dilated. 4. Right atrium: The atrium is mildly dilated. 5. Aortic valve: Trileaflet; mildly calcified leaflets. There is mild stenosis. There is mild-moderate, 1-2+ regurgitation. The mean systolic gradient is 13 mm Hg. The peak systolic gradient is 22 mm Hg. The valve area by the velocity-time integral method is 2.2 cm^2. The valve area index by the velocity-time integral method is 1 cm^2/m^2. 6. Aortic root: The aortic root is mildly dilated. STUDY DATA: Complete transthoracic echocardiogram. Procedure: Image quality was poor. The study was technically limited due to poor acoustic window availability and respiratory interference. Intravenous imaging enhancement (Definity) was administered to opacify the chamber. Definity lot #: [id number]. M-mode, complete 2D, complete spectral Doppler, and color flow Doppler images were acquired and archived for permanent storage and are available for subsequent review. Study status: Routine. Patient status: Outpatient. FINDINGS LEFT VENTRICLE: The cavity size is normal. Wall thickness is mildly increased. There is mild concentric hypertrophy. Systolic function is normal by the biplane method of disks. The estimated ejection fraction is 64%. There are no regional wall motion abnormalities. Left ventricular diastolic function parameters are normal. RIGHT VENTRICLE: The cavity size is moderately dilated. Systolic function is normal. Right ventricular systolic pressure is within the normal range. VENTRICULAR SEPTUM: There is no evidence of a ventricular septal defect. LEFT ATRIUM: The atrium is mildly dilated. RIGHT ATRIUM: The atrium is mildly dilated. ATRIAL SEPTUM: Doppler shows no shunt. There is no evidence of right to left shunting with injection of agitated saline contrast. There is redundancy of the septum, with borderline criteria for aneurysm. MITRAL VALVE: Structurally normal valve. Leaflet separation is normal. Doppler: Transvalvular velocity is within the normal range. There is no evidence for stenosis. There is trivial, less than 1+ regurgitation. AORTIC VALVE: Trileaflet; mildly calcified leaflets. Doppler: There is mild stenosis. There is mild-moderate, 1-2+ regurgitation. Dimensionless index: 0.45. The valve area by the velocity-time integral method is 2.2 cm^2. The valve area index by the velocity-time integral method is 1 cm^2/m^2. The mean systolic gradient is 13 mm Hg. The peak systolic gradient is 22 mm Hg. The peak systolic velocity is 2.3 m/sec. TRICUSPID VALVE: Structurally normal valve. Leaflet separation is normal. Doppler: Transvalvular velocity is within the normal range. There is no evidence for stenosis. There is trivial, less than 1+ regurgitation. PULMONIC VALVE: Structurally normal valve. Cusp separation is normal. Doppler: Transvalvular velocity is within the normal range. There is trivial, less than 1+ regurgitation. AORTA: Aortic root: The aortic root is mildly dilated. Ascending aorta: The ascending aorta is mildly dilated. PERICARDIUM: There is no pericardial effusion. SYSTEMIC VEINS: Inferior vena cava: Not well visualized. Measurements Value 09/25/2018 Reference Aortic root ID, ED (H) 4.8 cm <4.4 (sinus) Value 09/25/2018 Reference Ascending aorta ID, A-P, 3.9 cm 4.4 S Ascending aorta ID/bsa, 1.7 cm/m^2 A-P, S Value 09/25/2018 Reference Aortic arch ID 3.5 cm 4.1 Aortic arch ID/bsa 1.5 cm/m^2 IVC Value 09/25/2018 Reference ID 2.1 cm 2.6 --------- (more content not included)... [employer] Work Phone: [employer] Work Phone: Echo Complete w/wo Contrasto n 11-23-2020 Echo Complete w/wo Contrast Patient Name: EDMOND LAMA Ultrasound ACCESSION EXAM DATE/TIME PROCEDURE ORDERING PROVIDER [id number] 11/23/2020 16:41 EDT Echo Complete w/wo MALINDA CHARLES JUDITH ANN Contrast Reason For Exam (Echo Complete w/wo Contrast) AI Report TRANSTHORACIC ECHOCARDIOGRAM PATIENT: Edmond Lama STUDY DATE: 11/23/2020 : 1960 AGE: 60 HT/WT: 175.3 cm (69 106.1 kg in) (233.5 lb) GENDER: M BP: 123 / 73 LOCATION: [facility] PATIENT Outpatient [facility] STATUS: *ORDERING PHYSICIAN: * Sarah Charles *RN: * Cindy Segura *READING PHYSICIAN: * Nick *GASOLINE TESTER: * Aliza Sotelo RDCS, MD Leroy AE, RVT, VT INDICATIONS: 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 CONCLUSIONS SUMMARY: 1. Left ventricle: There is mild concentric hypertrophy. Systolic function is normal by the biplane method of disks. The estimated ejection fraction is 64%. 2. Right ventricle: The cavity size is moderately dilated. Right ventricular systolic pressure is within the normal range. 3. Left atrium: The atrium is mildly dilated. 4. Right atrium: The atrium is mildly dilated. 5. Aortic valve: Trileaflet; mildly calcified leaflets. There is mild stenosis. There is mild-moderate, 1-2+ regurgitation. The mean systolic gradient is 13 mm Hg. The peak systolic gradient is 22 mm Hg. The valve area by the velocity-time integral method is 2.2 cm^2. The valve area index by the velocity-time integral method is 1 cm^2/m^2. 6. Aortic root: The aortic root is mildly dilated. STUDY DATA: Complete transthoracic echocardiogram. Procedure: Image quality was poor. The study was technically limited due to poor acoustic window availability and respiratory interference. Intravenous imaging enhancement (Definity) was administered to opacify the chamber. Definity lot #: [id number]. M-mode, complete 2D, complete spectral Doppler, and color flow Doppler images were acquired and archived for permanent storage and are available for subsequent review. Study status: Ultrasound Report Routine. Patient status: Outpatient. FINDINGS LEFT VENTRICLE: The cavity size is normal. Wall thickness is mildly increased. There is mild concentric hypertrophy. Systolic function is normal by the biplane method of disks. The estimated ejection fraction is 64%. There are no regional wall motion abnormalities. Left ventricular diastolic function parameters are normal. RIGHT VENTRICLE: The cavity size is moderately dilated. Systolic function is normal. Right ventricular systolic pressure is within the normal range. VENTRICULAR SEPTUM: There is no evidence of a ventricular septal defect. LEFT ATRIUM: The atrium is mildly dilated. RIGHT ATRIUM: The atrium is mildly dilated. ATRIAL SEPTUM: Doppler shows no shunt. There is no evidence of right to left shunting with injection of agitated saline contrast. There is redundancy of the septum, with borderline criteria for aneurysm. MITRAL VALVE: Structurally normal valve. Leaflet separation is normal. Doppler: Transvalvular velocity is within the normal range. There is no evidence for stenosis. There is trivial, less than 1+ regurgitation. AORTIC VALVE: Trileaflet; mildly calcified leaflets. Doppler: There is mild stenosis. There is mild-moderate, 1-2+ regurgitation. Dimensionless index: 0.45. The valve area by the velocity-time integral method is 2.2 cm^2. The valve area index by the velocity-time integral method is 1 cm^2/m^2. The mean systolic gradient is 13 mm Hg. The peak systolic gradient is 22 mm Hg. The peak systolic velocity is 2.3 m/sec. TRICUSPID VALVE: Structurally normal valve. Leaflet separation is normal. Doppler: Transvalvular velocity is within the normal range. There is no evidence for stenosis. There is trivial, less than 1+ regurgitation. PULMONIC VALVE: Structurally normal valve. Cusp separation is normal. Doppler: Transvalvular velocity is within the normal range. There is trivial, less than 1+ regurgitation. AORTA: Aortic root: The aortic root is mildly dilated. Ascending aorta: The ascending aorta is mildly dilated. PERICARDIUM: There is no pericardial effusion. SYSTEMIC VEINS: Inferior vena cava: Not well visualized. Measurements Value 09/25/2018 Reference Aortic root ID, ED (H) 4.8 cm <4.4 (sinus) Value 09/25/2018 Reference Ascending aorta ID, A-P, 3.9 cm 4.4 S Ascending aorta ID/bsa, 1.7 cm/m^2 A-P, S Value 09/25/2018 Referen (more content not included)... Normal [facility] No Panel Informationon 08-13 [email or web address] [id number] } [facility] [facility] Work Phone: [facility] Work Phone: [facility] Surgical Pathology Depar tmenton 08-13-2020 [facility] Surgical Pathology Department Name EDMOND LAMA Pathologist: MARINA GALLARDO MD Date of Procedure: 08/13/2020 Date Received: 08/13/2020 Date Reported 08/17/2020 Submitting Physician: HOSSEIN REIS DO Location: [facility] Copy To/Referring/Attending: MINOR BEASLEY DO Other External # FINAL DIAGNOSIS A. ASCENDING COLON, POLYPECTOMY: --TUBULAR ADENOMA. Electronically Signed Out By MARINA GALLARDO MD/[facility] By the signature on this report, the individual or group listed as making the Final Interpretation/Diagnosis certifies that they have reviewed this case. Clinical History: Rectal bleeding loose stools hx of colon polyps Specimens Submitted As: A: ASCENDING COLON POLYP Gross Description: Received in formalin, labeled with the patient's name and hospital number and ascending colon, is one light malik polypoid, soft tissue fragment measuring 0.3 x 0.3 x 0.2 cm. The specimen is submitted in toto in one cassette. LMP lmp/08/14/2020 [facility] Department of Pathology [address] [place] [address] Normal [facility] Comment on above: Performed By: #### U [facility] #### [facility] Surgical Pathology Department [address] [place] [address] No Panel Informationon 08-06 [id number] } [facility] Work Phone: [facility] Work Phone: Clinical Summary: HMSPatient IDon 10-25-2019 VOP [facility] Work Phone: Clinical Lists Update: Prelo ad Extendedon 10-23-2019 Tobacco smoking status NHIS Tobacco smoking status NHIS [facility] Work Phone: Clinical Summary: Outcome Escobar mmaryon 10-23-2019 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 [facility] Work Phone: Adult DLA20 Question 10 2 [facility] Work Phone: Adult DLA20 Question 11 3 [facility] Work Phone: Adult DLA20 Question 12 3 [facility] Work Phone: Adult DLA20 Question 13 3 [facility] Work Phone: Adult DLA20 Question 14 2 [facility] Work Phone: Adult DLA20 Question 15 1 [facility] Work Phone: Adult DLA20 Question 16 2 [facility] Work Phone: Adult DLA20 Question 17 2 [facility] Work Phone: Adult DLA20 Question 2 camping [facility] Work Phone: Adult DLA20 Question 3 Yes [facility] Work Phone: Adult DLA20 Question 4 Yes [facility] Work Phone: Adult DLA20 Question 5 No [facility] Work Phone: Adult DLA20 Question 6 2 [facility] Work Phone: Adult DLA20 Question 7 4 [facility] Work Phone: Adult DLA20 Question 8 2 [facility] Work Phone: Adult DLA20 Question 9 2 [facility] Work Phone: Adult DLA20 SUM 66.74 [facility] Work Phone: diagnostic criteria for SLE #1 3 [facility] Work Phone: diagnostic criteria for SLE #10 5 [facility] Work Phone: diagnostic criteria for SLE #11 10 [facility] Work Phone: diagnostic criteria for SLE #12 17 [facility] Work Phone: diagnostic criteria for SLE #13 34.9 [facility] Work Phone: diagnostic criteria for SLE #14 56.0 [facility] Work Phone: diagnostic criteria for SLE #15 0.46761 [facility] Work Phone: diagnostic criteria for SLE #2 4 [facility] Work Phone: diagnostic criteria for SLE #3 2 [facility] Work Phone: diagnostic criteria for SLE #4 4 [facility] Work Phone: diagnostic criteria for SLE #5 4 [facility] Work Phone: diagnostic criteria for SLE #6 4 [facility] Work Phone: diagnostic criteria for SLE #7 5 [facility] Work Phone: diagnostic criteria for SLE #8 5 [facility] Work Phone: diagnostic criteria for SLE #9 3 [facility] Work Phone: Clinical Summary: Scanned [place] pat Navaon 10-23-2019 cause of , mother anuerism [facility] Work Phone: comments about allergies statins [facility] Work Phone: data entered by patient, alcohol (ethanol or ETOH) use No [facility] Work Phone: Data entered by patient, allergy list I don't have any Environmental AllergiesI don't have any Food Allergies [facility] Work Phone: data entered by patient, drug (of abuse) use No [facility] Work Phone: data entered by patient, Employer Name employed [facility] Work Phone: data entered by patient, exercise history No [facility] Work Phone: data entered by patient, father's medical history [facility] Work Phone: Data entered by patient, history of past surgeries Gallbladder surgeryHernia repair [facility] Work Phone: data entered by patient, past medical history A-FibGoutHigh blood pressureKidney disease [facility] Work Phone: data entered by patient, 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, current smoker never smoker [facility] Work Phone: data entered by patient, 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, marital status [facility] Work Phone: data entered by patient, 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, 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 [facility] Work Phone: father of patient is alive or [facility] Work Phone: Housing Type: apartment, house, mcc, trailer, none house [facility] Work Phone: housing unit size (asthma environmental history, housing) (from single family to don't know) 1 floor [facility] Work Phone: medical history of patient's brother(s) My brother's health history is unknown [facility] Work Phone: medical history of patient's sister My sister's health history is unknown [facility] Work Phone: mother of patient is alive or [facility] Work Phone: Number of dependent children No [facility] Work Phone: Sodium [Moles/Vol] mycophenolate sodium -360 mg-2-every 12 unknjdrajldvkwn-4xk-3 morning 1at night-every 12 hourseliquis-5 mg-1-every 12 hoursfamotidine-20 mg-1-per daymagnesium oxide-243.1 mg-2-every 12 hoursmetoprolol succinate-25 mg-1-per daypregabalin-75 mg-1-per dayropinirole-.25 mg-2-every 12 hourssulfamethoxazole-trime wqhzfys-393-4-per day [facility] Work Phone: Web entered surgical history comments 2 kidney transplants [facility] Work Phone: cause of , mother anuerism [facility] Work Phone: comments about allergies statins [facility] Work Phone: data entered by patient, alcohol (ethanol or ETOH) use No [facility] Work Phone: data entered by patient, drug (of abuse) use No [facility] Work Phone: data entered by patient, Employer Name employed [facility] Work Phone: data entered by patient, exercise history No [facility] Work Phone: data entered by patient, father's medical history Diabetes - non-insulin dependentGoutHigh blood pressure [facility] Work Phone: Data entered by patient, history of past surgeries Cataract surgeryGallbladder surgeryHernia repairTonsillectomy [facility] Work Phone: data entered by patient, past medical history GoutHigh blood pressureKidney disease [facility] Work Phone: data entered by patient, 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, current smoker never smoker [facility] Work Phone: data entered by patient, 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, marital status [facility] Work Phone: father of patient is alive or [facility] Work Phone: Housing Type: apartment, house, mcc, trailer, none house [facility] Work Phone: housing unit size (asthma environmental history, housing) (from single family to don't know) 1 floor [facility] Work Phone: medical history of patient's brother(s) My brother's health history is unknown [facility] Work Phone: medical history of patient's sister My sister's health history is unknown [facility] Work Phone: mother of patient is alive or [facility] Work Phone: Number of dependent children No [facility] Work Phone: Sodium [Moles/Vol] mycophenolate sodium-360/mg-2-every 12 hourstacrolimus-1 mg-2 morning 1at night-every 12 hourseliquis-5 mg-1-every 12 hoursfamotidine-20 mg-1-per daymagnesium oxide-243.1 mg-2-every 12 hoursmetoprolol succinate-25 mg-1-per daypregabalin-75 mg-1-per dayropinirole-.25 mg-2-every 12 hgvgvgvczyid-076jd-0-per day [facility] Work Phone: Web entered surgical history comments 2 kidney transplant [facility] Work Phone: Potassiumon 10-09-2018 Potassium [Moles/Vol] 4.2 mmol/L Normal 3.5-5.1 [facility] Comment on above: Performed By: #### H EMDF, LIPA4, CMP3 #### [facility] [address] [place] [address] Potassium [Moles/Vol] 4.2 mmol/L 3.5 - 5.1 mmol/L [facility], [place] Test Performed by [facility], [facility] [place] [address] [facility], [place] ECHO Complete 2D W Doppler W Coloron 09-25-2018 TRANSTHORACIC ECHOCARDIOGRAM PATIENT: Edmond Lama STUDY DATE: 09/25/2018 : 1960 AGE: 58 HT/WT: 175.3 cm (69 95.3 kg in) (209.6 lb) GENDER: M BP: 97 / 59 LOCATION: [facility] PATIENT Outpatient [facility] STATUS: Center *ORDERING PHYSICIAN: * Fouzia Pool *READING PHYSICIAN: * Bobby Sánchez MD *GASOLINE TESTER: * Amarilis VILLA INDICATIONS: Murmur. Hypertension. Aortic dilation. CONCLUSIONS SUMMARY: 1. Aorta: The aorta is moderately dilated. AO/SINUS= 4.46 CM. 2. Left ventricle: Average LV Global Longitudinal Strain is -20 The cavity size is normal. Wall thickness is mildly increased. Systolic function is normal by the biplane method of disks. The estimated ejection fraction is 64%. There are no regional wall motion abnormalities. 3. Right ventricle: The cavity size is normal. Wall thickness is normal. Systolic function is normal. Right ventricular systolic pressure is mildly increased. 4. Left atrium: The atrium is moderately dilated. 5. Aortic valve: Structurally normal valve. Trileaflet. There is mild, 1+ regurgitation. Dimensionless index: 0.47. 6. Tricuspid valve: There is trivial, less than 1+ regurgitation. 7. MODRATE AORTIC ROOT DILATATION. NO EVIDENCE OF DISSECTION BY TTE. AV IS TRILEAFLET WITH TRIVIAL REGURGITATION. JONO IS SUGGESTED IF INDICATED. STUDY DATA: Complete transthoracic echocardiogram. Procedure: Image quality was good. M-mode, complete 2D, strain rate, complete spectral Doppler, and color flow Doppler images were acquired and archived for permanent storage and are available for subsequent review. Study status: Routine. Patient status: Outpatient. FINDINGS LEFT VENTRICLE: Average LV Global Longitudinal Strain is -20 The cavity size is normal. Wall thickness is mildly increased. Systolic function is normal by the biplane method of disks. The estimated ejection fraction is 64%. There are no regional wall motion abnormalities. Unable to assess LV diastolic function due to suboptimal technical data RIGHT VENTRICLE: The cavity size is normal. Wall thickness is normal. Systolic function is normal. Right ventricular systolic pressure is mildly increased. VENTRICULAR SEPTUM: There is no evidence of a ventricular septal defect. LEFT ATRIUM: The atrium is moderately dilated. RIGHT ATRIUM: The atrium is normal in size. ATRIAL SEPTUM: The interatrial septum is normal. Color Doppler shows no evidence of shunt. Doppler shows no evidence of shunt. MITRAL VALVE: Structurally normal valve. Doppler: There is trivial, less than 1+ regurgitation. Peak gradient (D): 3 mm Hg. AORTIC VALVE: Structurally normal valve. Trileaflet. Doppler: There is mild, 1+ regurgitation. Dimensionless index: 0.47. Valve area (VTI): 2.3 cm2. Indexed valve area (VTI): 1 cm2/m2. Mean gradient (S): 15 mm Hg. Peak gradient (S): 24 mm Hg. Peak velocity (S): 2.5 m/sec. TRICUSPID VALVE: Structurally normal valve. Doppler: There is trivial, less than 1+ regurgitation. PULMONIC VALVE: Structurally normal valve. Doppler: There is trivial, less than 1+ regurgitation. AORTA: The aorta is moderately dilated. AO/SINUS= 4.46 CM. PULMONARY ARTERY: Main pulmonary artery: Normal. PERICARDIUM: There is no pericardial effusion. SYSTEMIC VEINS: Inferior vena cava: The vessel is normal and moderately dilated. The IVC collapses by greater than 50% with inspiration. Diameter: 2.6 cm. Hepatic veins: The flow pattern is normal. Measurements IVC Value Reference ID 2.6 cm --------- Left ventricle Value Reference Longitudinal strain, 2D 19.85 % --------- LV ID, ED 4.8 cm 4.2 - 5.9 LV ID, ES 3.0 cm --------- LV PW thickness, ED (H) 1.1 cm 0.6 - 1.0 LV end-diastolic volume, 1-p A4C 122 ml 67 - 155 LV end-systolic volume, 1-p A4C 44 ml 22 - 58 LV end-diastolic volume, 2-p 121 ml 67 - 155 LV end-systolic volume, 2-p 43 ml 22 - 58 LV ejection fraction, 2-p 64 % >=55 LV E/e', lateral 9 --------- LV E/e', medial 11 --------- LV E/e', average 9.9 --------- Ventricular septum Value Reference IVS thickness, ED (H) 1.3 cm 0.6 - 1.0 LVOT Value Reference LVOT ID, A-P 2.4 cm --------- LVOT mean velocity, S 0.7 m/sec --------- LVOT VTI, S 26.0 cm --------- LVOT peak gradient, S 5 mm Hg --------- Stroke volume (SV), LVOT DP 115 ml --------- Stroke index (SV/bsa), LVOT DP 53 ml/m2 --------- Aortic valve Value Reference Aortic valve peak velocity, S 2.5 m/sec --------- Aortic valve mean velocity, S 1.8 m/sec --------- Aortic valve VTI, S 55.9 cm --------- Aortic mean gradient, S 15 mm Hg --------- Aortic peak gradient, S 24 mm Hg --------- DI 0.47 --------- Aortic valve area, VTI 2.3 cm2 --------- Aortic valve area/bsa, VTI 1 cm2/m2 --------- Aortic regurg pressure half-time 625 ms --------- Aorta Value Reference Aortic root ID (H) 4.5 cm <4.3 Aortic root ID, STJ, ED 4.1 cm --------- Ascending aorta ID, A-P 4.4 cm --------- Ascending aorta ID, A-P, S 4.4 cm --------- Aortic arch ID 4.1 cm --------- Left atrium Value Reference LA volume/bsa, ES, 2-p 51 ml/m2 --------- Mitral valve Value Reference Mitral E-wave peak velocity 0.8 m/sec --------- Mitral A-wave peak velocity 0.9 m/sec --------- Mitral deceleration time 256 ms --------- Mitral peak gradient, D 3 mm Hg --------- Mitral E/A ratio, peak 0.9 --------- Pulmonary arteries Value Reference PA pressure, S, DP 37 mm Hg --------- Tricuspid valve Value Reference Tricuspid regurg peak velocity 2.9 m/sec --------- Tricuspid peak RV-RA gradient 34 mm Hg --------- Right atrium Value Reference RA area, ES, A4C 15 cm2 10 - 18 Systemic veins Value Reference Estimated RAP 3 mm Hg --------- Right ventricle Value Reference RV ID, minor axis, ED, A4C base 3.2 cm 2.4 - 4.2 RV ID, minor axis, ED, A4C mid 3.0 cm 2.0 - 3.5 TAPSE 3.2 cm --------- RV pressure, S, DP 37 mm Hg --------- RV s', lateral, S 0.16 m/sec --------- Pulmonic valve Value Reference Pulmonic regurg gradient, ED 4 mm Hg --------- Legend: (L) and (H) marina values outside specified reference range. Electronically signed by Bobby Sánchez MD 09/25/2018 15:40 [facility], [facility] Incoming Cardiology Results From [facility]less[facility] - 09/25/2018 3:40 PM EDT TRANSTHORACIC ECHOCARDIOGRAM PATIENT: Edmond Lama STUDY DATE: 09/25/2018 : 1960 AGE: 58 HT/WT: 175.3 cm (69 95.3 kg in) (209.6 lb) GENDER: M BP: 97 / 59 LOCATION: [facility] PATIENT Outpatient [facility] STATUS: Center *ORDERING PHYSICIAN: * Fouzia Pool *READING PHYSICIAN: * Bobby Sánchez MD *GASOLINE TESTER: * Amarilis VILLA --- INDICATIONS: Murmur. Hypertension. Aortic dilation. --- CONCLUSIONS SUMMARY: 1. Aorta: The aorta is moderately dilated. AO/SINUS= 4.46 CM. 2. Left ventricle: Average LV Global Longitudinal Strain is -20 The cavity size is normal. Wall thickness is mildly increased. Systolic function is normal by the biplane method of disks. The estimated ejection fraction is 64%. There are no regional wall motion abnormalities. 3. Right ventricle: The cavity size is normal. Wall thickness is normal. Systolic function is normal. Right ventricular systolic pressure is mildly increased. 4. Left atrium: The atrium is moderately dilated. 5. Aortic valve: Structurally normal valve. Trileaflet. There is mild, 1+ regurgitation. Dimensionless index: 0.47. 6. Tricuspid valve: There is trivial, less than 1+ regurgitation. 7. MODRATE AORTIC ROOT DILATATION. NO EVIDENCE OF DISSECTION BY TTE. AV IS TRILEAFLET WITH TRIVIAL REGURGITATION. JONO IS SUGGESTED IF INDICATED. --- STUDY DATA: Complete transthoracic echocardiogram. Procedure: Image quality was good. M-mode, complete 2D, strain rate, complete spectral Doppler, and color flow Doppler images were acquired and archived for permanent storage and are available for subsequent review. Study status: Routine. Patient status: Outpatient. --- FINDINGS LEFT VENTRICLE: Average LV Global Longitudinal Strain is -20 The cavity size is normal. Wall thickness is mildly increased. Systolic function is normal by the biplane method of disks. The estimated ejection fraction is 64%. There are no regional wall motion abnormalities. Unable to assess LV diastolic function due to suboptimal technical data RIGHT VENTRICLE: The cavity size is normal. Wall thickness is normal. Systolic function is normal. Right ventricular systolic pressure is mildly increased. VENTRICULAR SEPTUM: There is no evidence of a ventricular septal defect. LEFT ATRIUM: The atrium is moderately dilated. RIGHT ATRIUM: The atrium is normal in size. ATRIAL SEPTUM: The interatrial septum is normal. Color Doppler shows no evidence of shunt. Doppler shows no evidence of shunt. MITRAL VALVE: Structurally normal valve. Doppler: There is trivial, less than 1+ regurgitation. Peak gradient (D): 3 mm Hg. AORTIC VALVE: Structurally normal valve. Trileaflet. Doppler: There is mild, 1+ regurgitation. Dimensionless index: 0.47. Valve area (VTI): 2.3 cm2. Indexed valve area (VTI): 1 cm2/m2. Mean gradient (S): 15 mm Hg. Peak gradient (S): 24 mm Hg. Peak velocity (S): 2.5 m/sec. TRICUSPID VALVE: Structurally normal valve. Doppler: There is trivial, less than 1+ regurgitation. PULMONIC VALVE: Structurally normal valve. Doppler: There is trivial, less than 1+ regurgitation. AORTA: The aorta is moderately dilated. AO/SINUS= 4.46 CM. PULMONARY ARTERY: Main pulmonary artery: Normal. PERICARDIUM: There is no pericardial effusion. SYSTEMIC VEINS: Inferior vena cava: The vessel is normal and moderately dilated. The IVC collapses by greater than 50% with inspiration. Diameter: 2.6 cm. Hepatic veins: The flow pattern is normal. --- Measurements IVC Value Reference ID 2.6 cm --------- Left ventricle Value Reference Longitudinal strain, 2D 19.85 % --------- LV ID, ED 4.8 cm 4.2 - 5.9 LV ID, ES 3.0 cm --------- LV PW thickness, ED (H) 1.1 cm 0.6 - 1.0 LV end-diastolic volume, 1-p A4C 122 ml 67 - 155 LV end-systolic volume, 1-p A4C 44 ml 22 - 58 LV end-diastolic volume, 2-p 121 ml 67 - 155 LV end-systolic volume, 2-p 43 ml 22 - 58 LV ejection fraction, 2-p 64 % >=55 LV E/e', lateral 9 --------- LV E/e', medial 11 --------- LV E/e', average 9.9 --------- Ventricular septum Value Reference IVS thickness, ED (H) 1.3 cm 0.6 - 1.0 LVOT Value Reference LVOT ID, A-P 2.4 cm --------- LVOT mean velocity, S 0.7 m/sec --------- LVOT VTI, S 26.0 cm --------- LVOT peak gradient, S 5 mm Hg --------- Stroke volume (SV), LVOT DP 115 ml --------- Stroke index (SV/bsa), LVOT DP 53 ml/m2 --------- Aortic valve Value Reference Aortic valve peak velocity, S 2.5 m/sec --------- Aortic valve mean velocity, S 1.8 m/sec --------- Aortic valve VTI, S 55.9 cm --------- Aortic mean gradient, S 15 mm Hg --------- Aortic peak gradient, S 24 mm Hg --------- DI 0.47 --------- Aortic valve area, VTI 2.3 cm2 --------- Aortic valve area/bsa, VTI 1 cm2/m2 --------- Aortic regurg pressure half-time 625 ms --------- Aorta Value Reference Aortic root ID (H) 4.5 cm <4.3 Aortic root ID, STJ, ED 4.1 cm --------- Ascending aorta ID, A-P 4.4 cm --------- Ascending aorta ID, A-P, S 4.4 cm --------- Aortic arch ID 4.1 cm --------- Left atrium Value Reference LA volume/bsa, ES, 2-p 51 ml/m2 --------- Mitral valve Value Reference Mitral E-wave peak velocity 0.8 m/sec --------- Mitral A-wave peak velocity 0.9 m/sec --------- Mitral deceleration time 256 ms --------- Mitral peak gradient, D 3 mm Hg --------- Mitral E/A ratio, peak 0.9 --------- Pulmonary arteries Value Reference PA pressure, S, DP 37 mm Hg --------- Tricuspid valve Value Reference Tricuspid regurg peak velocity 2.9 m/sec --------- Tricuspid peak RV-RA gradient 34 mm Hg --------- Right atrium Value Reference RA area, ES, A4C 15 cm2 10 - 18 Systemic veins Value Reference Estimated RAP 3 mm Hg --------- Right ventricle Value Reference RV ID, minor axis, ED, A4C base 3.2 cm 2.4 - 4.2 RV ID, minor axis, ED, A4C mid 3.0 cm 2.0 - 3.5 TAPSE 3.2 cm --------- RV pressure, S, DP 37 mm Hg --------- RV s', lateral, S 0.16 m/sec --------- Pulmonic valve Value Reference Pulmonic regurg gradient, ED 4 mm Hg --------- Legend: (L) and (H) marina values outside specified reference range. Electronically signed by Bobby Sánchez MD 09/25/2018 15:40 [facility] [place] CULTURE ANAEROBEon 9 CULTURE ANAEROBE CULTURE ANAEROBE --> Status: F No growth of anaerobes at 5 days. [facility] Comment on above: Order Comment: Speci men collected in O.R. Performed By: #### H NORRIS FINN CMP3 #### [facility] [address] [place] [address] CULT./ST. BACTERIAon 019 CULT./ST. BACTERIA STAIN GRAM --> Statu s: F No organisms seen. 1 Organism Pseudomonas aeruginosa Few -- 1 Organism -- Antibiotic Result Intrp -- Amikacin(KYLIE) <= 2 S Cefepime(KYLIE) = 2 S Ciprofloxacin(KYLIE) <= 0.25 S Gentamicin(KYLIE) <= 1 S Levofloxacin(KYLIE) = 1 S Meropenem(KYLIE) <= 0.25 S Pip/Tazobactam(KYLIE) = 8 S [facility] Comment on above: Order Comment: Speci men collected in O.R. Performed By: #### H NORRIS FINN CMP3 #### [employer] [address] [place] [address] CULTURE AND STAIN - FLUIDon 07-24-2018 CULTURE AND STAIN - FLUID 1 Organism Gram positive larisa Few Catalase positive, pigmented gram positive bacilli Unable to identify by mass spectrometry (MALDI-TOF); no further identification. [facility] Comment on above: Order Comment: Speci men Source Comment:Ascitic Fluid Performed By: #### S /GRM, CXFLD #### [facility] [address] [place], [place] Basic Metabolic Panelon 07-07 Anion gap [Moles/Vol] 11 Normal [facility] Comment on above: Performed By: #### H EMDF, LIPA4, CMP3 #### [place] [address] [place], [place] Calcium [Mass/Vol] 8.8 mg/dL Normal 8.4-10.4 [facility] Comment on above: Performed By: #### H EMDF, LIPA4, CMP3 #### [place] [address] [place], [place] CO2 [Moles/Vol] 24 mmol/L Normal 22-30 [facility] Comment on above: Performed By: #### H EMDF, LIPA4, CMP3 #### [place] [address] [place], [place] Creatinine [Mass/Vol] 4.18 mg/dL High 0.52-1.25 [facility] Comment on above: Performed By: #### H EMDF, LIPA4, CMP3 #### [place] [address] [place], [place] GFR/1.73 sq M predicted among blacks MDRD (S/P/Bld) [Vol rate/Area] 17.8 mL/min/{1.73_m2} Normal >60 [facility] Comment on above: Performed By: #### H EMDF, LIPA4, CMP3 #### [place] [address] [place], [place] GFR/1.73 sq M predicted among non-blacks MDRD (S/P/Bld) [Vol rate/Area] 14.7 mL/min/{1.73_m2} Normal >60 [facility] Comment on above: Result Comment: Sour ce- MDRD equation with creatinine calibration to IDMS(NKDEP) eGFR not recommended for drug dose adjustment Performed By: #### H EMDF, LIPA4, CMP3 #### [facility] [place] [address], [place] Glucose [Mass/Vol] 72 mg/dL Normal 70-100 [facility] Comment on above: Performed By: #### H EMDF, LIPA4, CMP3 #### [facility] [address], [place] Urea nitrogen [Mass/Vol] 41 mg/dL High 7-20 [facility] [place] Comment on above: Performed By: #### H EMDF, LIPA4, CMP3 #### [facility] [place] [address], [place] Chloride [Moles/Vol] 107 mmol/L Normal 98-107 [facility] Comment on above: Performed By: #### H EMDF, LIPA4, CMP3 #### [place] [address], [place] Potassium [Moles/Vol] 4.0 mmol/L Normal 3.5-5.1 [facility] Comment on above: Performed By: #### H EMDF, LIPA4, CMP3 #### [place] [address], [place] Sodium [Moles/Vol] 142 mmol/L Normal 135-145 [facility] [place] Comment on above: Performed By: #### H EMDF, LIPA4, CMP3 #### [place] [address], [place] Hemogramon 07-22-2018 Erythrocyte distribution width (RBC) [Ratio] 12.6 % Normal 11.5-14.5 [facility] [place] Comment on above: Performed By: #### H EMDF, LIPA4, CMP3 #### [facility] [place] [address], [place] Hematocrit (Bld) [Volume fraction] 38.6 % Low 40.0-52.0 [facility] [place] Comment on above: Performed By: #### H EMDF, LIPA4, CMP3 #### [facility] [place] [address] [place] [address] Hemoglobin (Bld) [Mass/Vol] 13.2 g/dL Normal 13.0-18.0 [facility] [place] Comment on above: Performed By: #### H EMDF, LIPA4, CMP3 #### [address] MCH (RBC) [Entitic mass] 30.4 pg Normal 26.0-34.0 [facility] [place] Comment on above: Performed By: #### H EMDF, LIPA4, CMP3 #### [place] [address] [place], [place] MCHC (RBC) [Mass/Vol] 34.1 % Normal 32.0-36.0 [facility] Comment on above: Performed By: #### H EMDF, LIPA4, CMP3 #### [address] MCV (RBC) [Entitic vol] 89.3 fL Normal 80.0-98.0 [facility] [place] Comment on above: Performed By: #### H EMDF, LIPA4, CMP3 #### [address] Platelet mean volume (Bld) [Entitic vol] 8.0 fL Normal 7.4-10.4 [facility] [place] Comment on above: Performed By: #### H EMDF, LIPA4, CMP3 #### [address] Platelets (Bld) [#/Vol] 235 10*3/uL Normal 140-440 [facility] [place] Comment on above: Performed By: #### H EMDF, LIPA4, CMP3 #### [address] RBC (Bld) [#/Vol] 4.32 10*6/uL Low 4.40-5.90 [facility] [place] Comment on above: Performed By: #### H EMDF, LIPA4, CMP3 #### [address] WBC (Bld) [#/Vol] 5.0 10*3/uL Normal 3.6-10.7 [facility] [place] Comment on above: Performed By: #### H EMDF, LIPA4, CMP3 #### [place] [address] [address], [place] Basic Metabolic Panelon 06-1 Calcium [Mass/Vol] 8.3 mg/dL Low 8.4-10.4 [facility] [place] Comment on above: Performed By: #### H EMDF, LIPA4, CMP3 #### [place] [address] [address], [place] Anion gap [Moles/Vol] 10 Normal [facility] Comment on above: Performed By: #### H EMDF, LIPA4, CMP3 #### [address] CO2 [Moles/Vol] 23 mmol/L Normal 22-30 [facility] Comment on above: Performed By: #### H EMDF, LIPA4, CMP3 #### [place] [address] [place], [place] Creatinine [Mass/Vol] 6.80 mg/dL High 0.52-1.25 [facility] Comment on above: Performed By: #### H EMDF, LIPA4, CMP3 #### [place] [address] [place], [place] GFR/1.73 sq M predicted among blacks MDRD (S/P/Bld) [Vol rate/Area] 10.2 mL/min/{1.73_m2} Normal >60 [facility] Comment on above: Performed By: #### H EMDF, LIPA4, CMP3 #### [place] [address] [address], [place] GFR/1.73 sq M predicted among non-blacks MDRD (S/P/Bld) [Vol rate/Area] 8.4 mL/min/{1.73_m2} Normal >60 [facility] Comment on above: Result Comment: Sour ce- MDRD equation with creatinine calibration to IDMS(NKDEP) eGFR not recommended for drug dose adjustment Performed By: #### H EMDF, LIPA4, CMP3 #### [place] [address] [address], [place] Glucose [Mass/Vol] 91 mg/dL Normal 70-100 [facility] [place] Comment on above: Performed By: #### H EMDLynn LIPA4, CMP3 #### [place] [address], [place] Urea nitrogen [Mass/Vol] 94 mg/dL High 7-20 [facility] [place] Comment on above: Performed By: #### H EMDF, LIPA4, CMP3 #### [place] [address], [place] Chloride [Moles/Vol] 107 mmol/L Normal 98-107 [facility] Comment on above: Performed By: #### H EMDLynn LIPA4, CMP3 #### [place] [address] [place], [place] Potassium [Moles/Vol] 3.9 mmol/L Normal 3.5-5.1 [facility] Comment on above: Performed By: #### H EMDLynn LIPA4, CMP3 #### [place] [address], [place] Sodium [Moles/Vol] 140 mmol/L Normal 135-145 [facility] [place] Comment on above: Performed By: #### H EMDLynn LIPA4, CMP3 #### [place] [address] [place], [place] Hemogramon 07-21-2018 Erythrocyte distribution width (RBC) [Ratio] 12.7 % Normal 11.5-14.5 [facility] [place] Comment on above: Performed By: #### H EMDF, LIPA4, CMP3 #### [place] [address], [place] Hematocrit (Bld) [Volume fraction] 35.0 % Low 40.0-52.0 [facility] [place] Comment on above: Performed By: #### H EMDF, LIPA4, CMP3 #### [place] [address] [place], [place] Hemoglobin (Bld) [Mass/Vol] 11.9 g/dL Low 13.0-18.0 [facility] [place] Comment on above: Performed By: #### H EMDF, LIPA4, CMP3 #### [place] [address], [place] MCH (RBC) [Entitic mass] 30.5 pg Normal 26.0-34.0 [facility] [place] Comment on above: Performed By: #### H EMDF, LIPA4, CMP3 #### [place] [address], [place] MCHC (RBC) [Mass/Vol] 34.0 % Normal 32.0-36.0 [facility] Comment on above: Performed By: #### H EMDF, LIPA4, CMP3 #### [address] MCV (RBC) [Entitic vol] 89.6 fL Normal 80.0-98.0 [facility] [place] Comment on above: Performed By: #### H EMDF, LIPA4, CMP3 #### [address] Platelet mean volume (Bld) [Entitic vol] 7.8 fL Normal 7.4-10.4 [facility] [place] Comment on above: Performed By: #### H EMDF, LIPA4, CMP3 #### [place] [address] [place], [place] Platelets (Bld) [#/Vol] 235 10*3/uL Normal 140-440 [facility] [place] Comment on above: Performed By: #### H EMDF, LIPA4, CMP3 #### [place] [address], [place] RBC (Bld) [#/Vol] 3.90 10*6/uL Low 4.40-5.90 [facility] [place] Comment on above: Performed By: #### H EMDF, LIPA4, CMP3 #### [address] WBC (Bld) [#/Vol] 6.0 10*3/uL Normal 3.6-10.7 [facility] [place] Comment on above: Performed By: #### H EMDF, LIPA4, CMP3 #### [place] [address] [place], [place] TS GELon 07-21-2018 TS GEL ABO Group: O Rh, Gel: POS Antibody Screen Gel: NEG Normal [facility] [place] Comment on above: Performed By: #### H EMDF, LIPA4, CMP3 #### [facility] [place] [address], [place] Acute Hepatitis Panelon 07-07 Hep B Core IgM NOT DETECTED Normal Not-Detect ed [facility] [place] Comment on above: Performed By: #### H EMDF, LIPA4, CMP3 #### [facility] [place] [address], [place] Hep A Virus Ab,IgM NOT DETECTED Normal Not-Detec t [facility] Comment on above: Performed By: #### H EMDF, LIPA4, CMP3 #### [facility] [place] [address], [place] Hep C Antibody NOT DETECTED Normal Not-Detect ed [facility] [place] Comment on above: Result Comment: Fide ents with DETECTED Hepatitis C Ab results should have a new specimen submitted for supplemental testing with a Hepatitis C Quantitative RNA assay (viral load), if clinically indicated. Performed By: #### H EMDF, LIPA4, CMP3 #### [facility] [place] [address], [place] Hep B Surface Ag NOT DETECTED Normal Not-Detect [facility] Comment on above: Performed By: #### H EMDF, LIPA4, CMP3 #### [facility] [place] [address], [place] CT Abdomen/Pelvis w/o Contra ston 07-20-2018 CT Abdomen/Pelvis w/o Contrast Patient Name: EDMOND LAMA CT Exam Date/Time 07/20/2018 13:57:[address] Abdomen/Pelvis (No PO, No IV) Ordering Physician ANDREEA HIDALGO MD Accession Number [id number] CPT4 Codes 39462 (CT Abdomen/Pelvis (No PO, No IV)) Reason For Exam ABDOMINAL PAIN Report CT SCAN OF THE ABDOMEN AND PELVIS WITHOUT CONTRAST: INDICATION: Diffuse abdominal pain, peritonitis, patient currently undergoing peritoneal dialysis COMPARISON: None. CT scans of the abdomen and pelvis were performed without oral and intravenous contrast administration, with images from the lung bases through the pubic symphysis. The images are reviewed in the axial, sagittal and coronal planes. There is mild scarring of the lung bases. The cardiac silhouette is satisfactory. The liver is normal in size, shape and attenuation. Multiple hepatic cysts are present. The gallbladder is surgically absent. No intra or extrahepatic biliary ductal dilatation is appreciated. The pancreas is unremarkable. The spleen is unremarkable. Evaluation of the upper GI tract demonstrates stomach to be moderately distended with ingested debris. The duodenum is satisfactory in appearance. The small bowel is unremarkable. There is no mucosal thickening. No zone of transition is appreciated. There is no free fluid nor free air. A peritoneal dialysis catheter is present within the abdomen and upper pelvis. There is a small amount of free fluid within the upper abdomen, likely representing dialysate. Evaluation of the colon demonstrate diffuse colonic diverticulosis without evidence of acute diverticulitis. There is no mucosal thickening of the colon. The appendix is unremarkable. The adrenal glands are unremarkable. Polycystic kidneys are redemonstrated. There are no mass lesions nor evidence of obstruction. Small bilateral nonobstructing calculi are present. Scans through the pelvis demonstrate rectosigmoid diverticulosis without an acute inflammatory process. The bladder is unremarkable. The remainder of the pelvic contents are unremarkable. There is no mass or adenopathy. There is no free fluid. The osseous structures are intact. The retroperitoneum is unremarkable. There is no mass or adenopathy. Scattered atherosclerotic changes of the aorta and iliac arteries are noted. IMPRESSION: Polycystic kidneys with multiple hepatic cysts present. A peritoneal dialysis catheter is noted within the abdomen and upper pelvis. There is a small amount of free fluid within the pelvis, likely dialysate. Diffuse colonic diverticulosis. No acute inflammatory process is appreciated. Report Dictated on Final Dictated: 07/20/2018 2:36 pm Dictating Physician: DO CAO ALFRED Signed Date and Time: 07/20/2018 2:43 pm Signed by: DO CAO ALFRED Transcribed Date and Time: 07/20/2018 2:36 Normal [facility] [place] Cell Count,Body Fluidon 07-07 Nucleated Cells 3263 {cells}/uL Normal [facility] Comment on above: Result Comment: slid e sent for path review Performed By: #### C UA2, FLDCC, GLMS3, LDMS3, DIFBF #### [place] [address] [place] [address] RBC Count Body Fld 463 {RBC}/uL Normal [facility] Comment on above: Performed By: #### C UA2, FLDCC, GLMS3, LDMS3, DIFBF #### [place] [address], [place] Fluid Type Peritoneal Normal [facility] Comment on above: Performed By: #### C UA2, FLDCC, GLMS3, LDMS3, DIFBF #### [place] [address], [place] Differential,Body Fluidson 0 07-20-2018 Other Cells 5 % Normal [facility] [place] Comment on above: Result Comment: Reac tive mesothelial cells and mixed acute and chronic inflammatory cells. 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, [place] Lymphocytes/100 WBC (Bld) 15 % Normal [facility] [place] Comment on above: Performed By: #### C UA2, FLDCC, GLMS3, LDMS3, DIFBF #### [place] [address], [place] Macrophages 9 % Normal [facility] [place] Comment on above: Performed By: #### C UA2, FLDCC, GLMS3, LDMS3, DIFBF #### [place] [address], [place] Monocytes/100 WBC (Bld) 20 % Normal [facility] Comment on above: Performed By: #### C UA2, FLDCC, GLMS3, LDMS3, DIFBF #### [place] [address] [place] [address] Neutrophils/100 WBC (Bld) 51 % Normal [facility] Comment on above: Performed By: #### C UA2, FLDCC, GLMS3, LDMS3, DIFBF #### [facility] [place] [address], [place] Cells Counted for Diff 100 Normal [facility] [place] Comment on above: Performed By: #### C UA2, FLDCC, GLMS3, LDMS3, DIFBF #### [facility] [place] [address], [place] Glucose, Body Fluidon 2018 Glucose, Body Fluid 81 mg/dL Normal No Range [facility] [place] Comment on above: Performed By: #### C UA2, FLDCC, GLMS3, LDMS3, DIFBF #### [facility] [place] [address], [place] Hep B Surface Abon 9 Hep B Surface Ab 20.3 m[IU]/mL Normal [facility] [place] Comment on above: Result Comment: Inte rpretation: <8.0 Non-Reactive 8.0-11.9 Equivocal >= 12.0 Ab Detected Performed By: #### H EMDF, LIPA4, CMP3 #### [facility] [place] [address], [place] LDH, Body Fluidon 07-20-2018 Fluid Type Acites Normal [facility] [place] Comment on above: Performed By: #### C UA2, FLDCC, GLMS3, LDMS3, DIFBF #### [facility] [place] [address], [place] LDH, Body Fluid 81 U/L Normal No Range [facility] Comment on above: Performed By: #### C UA2, FLDCC, GLMS3, LDMS3, DIFBF #### [facility] [place] [address], [place] Prothrombin Timeon 9 INR Coag (PPP) [Relative time] 1.0 Normal 0.9-1.1 [facility] Comment on above: Result Comment: Miles mmended Anticoagulant Therapy: SEE BELOW ----- INR of 2.0 - 3.0 : - Prophylaxis of Venous Thrombosis (high-risk surgery) - Treatment of Venous Thrombosis - Treatment of Pulmonary Embolism (Includes tissue heart valves, Acute Myocardial Infarction to prevent systemic embolism, Valvular Heart Disease, and Atrial Fibrillation) ----- INR of 2.5 - 3.5 : - Mechanical Prosthetic Valves (high risk) - If oral anticoagulant therapy is used to prevent Myocardial Infarction Performed By: #### H EMDF, LIPA4, CMP3 #### [facility] [place] [address] [place] [address] PT Coag (PPP) [Time] 10.5 s Normal 9.0-12.0 [facility] Comment on above: Result Comment: . Performed By: #### H EMDF, LIPA4, CMP3 #### [facility] [place] [address] [place] [address] STAIN GRAMon 07-20-2018 STAIN GRAM STAIN GRAM --> Statu s: F Cytocentrifugation performed. Many mononuclear cells/lpf Many polymorphonuclear cells/lpf. Few gram positive bacilli. Many mononuclear cells/lpf Many polymorphonuclear cells/lpf. Few gram positive bacilli. Normal [facility] Comment on above: Order Comment: Speci men Source Comment:Ascitic Fluid Performed By: #### S /GRM, CXFLD #### [facility] [address] [place] [address] XA Special Angiography Proce dureon 07-20-2018 XA Special Angiography Procedure Patient Name: EDMOND LAMA Special Procedures Exam Date/Time 07/20/2018 16:54:56 EDT Exam XA Special Angiography Procedure Ordering Physician NARESH JIMENEZ Accession Number [id number] Reason For Exam place tunnel dialysis cvc today for hemodialysis Report Reasons for procedure: Renal insufficiency requiring dialysis. Patient with peritoneal infection, precluding use of peritoneal dialysis catheter. Tunneled dialysis catheter placement requested. Informed consent was obtained after discussion of risks, benefits, and alternatives and all questions were answered. Attestation was signed. Guidance 1: Ultrasound guidance for right internal jugular venous access, with ultrasound image capture, showing that the right internal jugular vein was patent. Guidance 2: Fluoroscopic guidance for guidewire and catheter manipulations. Fluoroscopy screen save image for documentation of final catheter positioning. Total fluoroscopy time: 0.3 minutes. Sterile Procedure: Sterile procedure was used including cap, mask, sterile gown, sterile gloves, a large sterile sheet, hand hygiene, and 2% chlorhexidine for cutaneous antisepsis. A sterile ultrasound probe cover was used with sterile ultrasound gel. Images obtained: One fluoroscopy screen save image. Procedure: Ultrasound evaluation demonstrated a patent right internal jugular vein. After obtaining informed consent, sterile preparation, draping, and local anesthetic administration, under direct ultrasound guidance, with ultrasound image capture, access was obtained into the right internal jugular vein with a micropuncture system. A microguidewire was placed, over which a 5 Ecuadorean sheath was placed. A subcutaneous tunnel was prepared in the right upper chest following administration of local anesthetic, and creation of a small dermatotomy. A 28 cm Gustavo split catheter was tunneled subcutaneously to the venous access site. Under fluoroscopic guidance, the small sheath was exchanged over a stiff guidewire, and a peel-away sheath was placed. The dialysis catheter was placed into the central circulation through the peel-away sheath. The tips are near the confluence of the superior vena cava and right atrium. Both ports flushed and aspirated well. The catheter tabs were secured with 2-0 silk sutures. The dermatotomy at the venous access site was closed with skin glue. Sites were sterilely dressed. The patient tolerated the procedure, and there were no immediate complications. IMPRESSION: Satisfactory placement of right internal jugular 28 cm tunneled dialysis catheter. Report Dictated on Workstation: [id number] Final Dictated: 07/20/2018 4:55 pm Dictating Physician: MD ORELLANA JOE M Signed Date and Time: 07/20/2018 4:56 pm Signed by: MD ORELLANA JOE M Transcribed Date and Time: 07/20/2018 4:55 Normal [facility] Comp Metabolic Panelon 07-19 Creatinine [Mass/Vol] 6.79 mg/dL High 0.52-1.25 [facility] Comment on above: Performed By: #### H EMDF, LIPA4, CMP3 #### [address] [address] GFR/1.73 sq M predicted among blacks MDRD (S/P/Bld) [Vol rate/Area] 10.2 mL/min/{1.73_m2} Normal >60 [facility] Comment on above: Performed By: #### H EMDF, LIPA4, CMP3 #### [facility] [address], [place] GFR/1.73 sq M predicted among non-blacks MDRD (S/P/Bld) [Vol rate/Area] 8.4 mL/min/{1.73_m2} Normal >60 [facility] Comment on above: Result Comment: Sour ce- MDRD equation with creatinine calibration to IDMS(NKDEP) eGFR not recommended for drug dose adjustment Performed By: #### H EMDF, LIPA4, CMP3 #### [facility] [place] [address], [place] ALP [Catalytic activity/Vol] 137 U/L High 38-126 [facility] Comment on above: Performed By: #### H EMDF, LIPA4, CMP3 #### [facility] [place] [address], [place] ALT [Catalytic activity/Vol] 18 U/L Normal 13-69 [facility] Comment on above: Performed By: #### H EMDF, LIPA4, CMP3 #### [facility] [place] [address], [place] Anion gap [Moles/Vol] 14 Normal [facility] Comment on above: Performed By: #### H EMDF, LIPA4, CMP3 #### [facility] [place] [address], [place] AST [Catalytic activity/Vol] 27 U/L Normal 15-46 [facility] Comment on above: Performed By: #### H EMDF, LIPA4, CMP3 #### [facility] [address], [place] Bilirubin [Mass/Vol] 0.4 mg/dL Normal 0.2-1.3 [facility] Comment on above: Performed By: #### H EMDF, LIPA4, CMP3 #### [facility] [place] [address], [place] Calcium [Mass/Vol] 8.1 mg/dL Low 8.4-10.4 [facility] Comment on above: Performed By: #### H EMDF, LIPA4, CMP3 #### [facility] [address] [place] [address] CO2 [Moles/Vol] 28 mmol/L Normal 22-30 [facility] Comment on above: Performed By: #### H EMDF, LIPA4, CMP3 #### [facility] [place] [address], [place] Glucose [Mass/Vol] 106 mg/dL High 70-100 [facility] Comment on above: Performed By: #### H EMDF, LIPA4, CMP3 #### [facility] [address], [place] Protein [Mass/Vol] 6.0 g/dL Low 6.3-8.2 [facility] Comment on above: Performed By: #### H EMDF, LIPA4, CMP3 #### [facility] [place] [address], [place] Urea nitrogen [Mass/Vol] 94 mg/dL High 7-20 [facility] Comment on above: Performed By: #### H EMDF, LIPA4, CMP3 #### [facility] [address], [place] Albumin [Mass/Vol] 3.1 g/dL Low 3.5-5.0 [facility] Comment on above: Performed By: #### H EMDF, LIPA4, CMP3 #### [facility] [address], [place] Chloride [Moles/Vol] 97 mmol/L Low 98-107 [facility] Comment on above: Performed By: #### H EMDF, LIPA4, CMP3 #### [facility] [address], [place] Potassium [Moles/Vol] 3.2 mmol/L Low 3.5-5.1 [facility] Comment on above: Performed By: #### H EMDF, LIPA4, CMP3 #### [facility] [address], [place] Sodium [Moles/Vol] 139 mmol/L Normal 135-145 [facility] Comment on above: Performed By: #### H EMDF, LIPA4, CMP3 #### [place] [address], [place] Complete Urinalysison 2018 Appearance (U) Clear Normal [facility] Comment on above: Result Comment: Refe rence Range: Clear Performed By: #### C UA2, FLDCC, GLMS3, LDMS3, DIFBF #### [place] [address], [place] Bilirubin,Urine Negative Normal [facility] Comment on above: Result Comment: Refe rence Range: Negative Performed By: #### C UA2, FLDCC, GLMS3, LDMS3, DIFBF #### [place] [address] [place], [place] Color (U) Light-Yellow Normal [facility] Comment on above: Result Comment: Refe rence Range: Lt. Yellow Performed By: #### C UA2, FLDCC, GLMS3, LDMS3, DIFBF #### [place] [address] [place], [place] Glucose Ql (U) Normal Normal [facility] Comment on above: Result Comment: Refe rence Range: Normal (<70) Performed By: #### C UA2, FLDCC, GLMS3, LDMS3, DIFBF #### [place] [address] [place], [place] Ketone,Urine Negative Normal [facility] Comment on above: Result Comment: Refe rence Range: Negative Performed By: #### C UA2, FLDCC, GLMS3, LDMS3, DIFBF #### [place] [address], [place] Leukocytes,Urine Negative Normal [facility] Comment on above: Result Comment: Refe rence Range: Negative Performed By: #### C UA2, FLDCC, GLMS3, LDMS3, DIFBF #### [place] [address], [place] Nitrites,Urine Negative Normal [facility] Comment on above: Result Comment: Refe rence Range: Negative Performed By: #### C UA2, FLDCC, GLMS3, LDMS3, DIFBF #### [address] Occult Blood,Urine Negative Normal [facility] Comment on above: Result Comment: Refe rence Range: Negative Performed By: #### C UA2, FLDCC, GLMS3, LDMS3, DIFBF #### [address] pH (U) 6.5 Normal 5.0-8.0 [facility] Comment on above: Performed By: #### C UA2, FLDCC, GLMS3, LDMS3, DIFBF #### [address] Protein (U) [Mass/Vol] 10 mg/dL Normal [facility] Comment on above: Result Comment: Refe rence Range: Negative Performed By: #### C UA2, FLDCC, GLMS3, LDMS3, DIFBF #### [address] RBC LM.HPF (Urine sed) [#/Area] 0 - 2 Normal [facility] Comment on above: Result Comment: Refe rence Range: 0-2 Performed By: #### C UA2, FLDCC, GLMS3, LDMS3, DIFBF #### [address] Specific [place],Urine 1.007 Normal 1.005-1.03 0 [facility] Comment on above: Performed By: #### C UA2, FLDCC, GLMS3, LDMS3, DIFBF #### [address] Urobilinogen,Urine Normal Normal [facility] Comment on above: Result Comment: Refe rence Range: Normal (0-1) Performed By: #### C UA2, FLDCC, GLMS3, LDMS3, DIFBF #### [address] Hemogram w/ Autodiffon 07-19 Abs Baso Cnt 0.0 10*3/uL Normal 0.0-0.2 [facility] Comment on above: Performed By: #### H EMDF, LIPA4, CMP3 #### [facility] [address], [place] Abs Neutrophile Cnt 4.4 10*3/uL Normal 1.8-7.0 [facility] Comment on above: Performed By: #### H EMDF, LIPA4, CMP3 #### [place] [address] [address], [place] Basophils/100 WBC (Bld) 0.6 % Normal 0.0-2.0 [facility] Comment on above: Performed By: #### H EMDF, LIPA4, CMP3 #### [place] [address] [address], [place] Eosinophils (Bld) [#/Vol] 0.2 10*3/uL Normal 0.0-0.5 [facility] Comment on above: Performed By: #### H EMDF, LIPA4, CMP3 #### [place] [address] [address], [place] Eosinophils/100 WBC (Bld) 2.7 % Normal 1.0-6.0 [facility] Comment on above: Performed By: #### H EMDF, LIPA4, CMP3 #### [place] [address] [address] [place], [place] Erythrocyte distribution width (RBC) [Ratio] 12.7 % Normal 11.5-14.5 [facility] Comment on above: Performed By: #### H EMDF, LIPA4, CMP3 #### [place] [address] [address] [place], [place] Granulocytes/100 WBC (Bld) 78.0 % Normal 40.0-80.0 [facility] Comment on above: Performed By: #### H EMDF, LIPA4, CMP3 #### [place] [address] [address] [place], [place] Hematocrit (Bld) [Volume fraction] 35.4 % Low 40.0-52.0 [facility] Comment on above: Performed By: #### H EMDF, LIPA4, CMP3 #### [place] [address] [place], [place] Hemoglobin (Bld) [Mass/Vol] 12.4 g/dL Low 13.0-18.0 [facility] Comment on above: Performed By: #### H EMDF, LIPA4, CMP3 #### [place] [address] [place], [place] Lymphocytes (Bld) [#/Vol] 0.4 10*3/uL Low 1.0-4.3 [facility] Comment on above: Performed By: #### H EMDF, LIPA4, CMP3 #### [address] Lymphocytes/100 WBC (Bld) 7.7 % Low 20.0-40.0 [facility] Comment on above: Performed By: #### H EMDF, LIPA4, CMP3 #### [address] MCH (RBC) [Entitic mass] 30.8 pg Normal 26.0-34.0 [facility] Comment on above: Performed By: #### H EMDF, LIPA4, CMP3 #### [address] MCHC (RBC) [Mass/Vol] 35.0 % Normal 32.0-36.0 [facility] Comment on above: Performed By: #### H EMDF, LIPA4, CMP3 #### [place] [address] [place], [place] MCV (RBC) [Entitic vol] 88.0 fL Normal 80.0-98.0 [facility] Comment on above: Performed By: #### H EMDF, LIPA4, CMP3 #### [address] Monocytes (Bld) [#/Vol] 0.6 10*3/uL Normal 0.0-0.8 [facility] Comment on above: Performed By: #### H EMDF, LIPA4, CMP3 #### [place] [address] [address] [place], [place] Monocytes/100 WBC (Bld) 11.0 % High 2.0-10.0 [facility] Comment on above: Performed By: #### H EMDF, LIPA4, CMP3 #### [place] [address] [address] [place], [place] Platelet mean volume (Bld) [Entitic vol] 7.8 fL Normal 7.4-10.4 [facility] Comment on above: Performed By: #### H EMDF, LIPA4, CMP3 #### [place] [address] [address] [place], [place] Platelets (Bld) [#/Vol] 228 10*3/uL Normal 140-440 [facility] Comment on above: Performed By: #### H EMDF, LIPA4, CMP3 #### [place] [address] [address] [place], [place] RBC (Bld) [#/Vol] 4.03 10*6/uL Low 4.40-5.90 [facility] Comment on above: Performed By: #### H EMDF, LIPA4, CMP3 #### [place] [address] [address] [place], [place] WBC (Bld) [#/Vol] 5.6 10*3/uL Normal 3.6-10.7 [facility] Comment on above: Performed By: #### H EMDF, LIPA4, CMP3 #### [place] [address] [address] [place], [place] Lipaseon 07-19-2018 Lipase [Catalytic activity/Vol] 246 U/L Normal 23-300 [facility] Comment on above: Performed By: #### H EMDF, LIPA4, CMP3 #### [place] [address] [address] [place], [place] Vital Signs Date Time Vital Sign Value Performing Clinician Facility 06-26-2024 14:14-0400 Body height 177.8 cm Ace Messina MD Work Phone: [facility] 06-26-2024 14:14-0400 Body mass index (BMI) [Ratio] 34.44 kg/m2 Ace Messina MD Work Phone: [facility] 06-26-2024 14:14-0400 Body weight 108.86 kg Ace Messina MD Work Phone: [facility] 06-26-2024 14:14-0400 Diastolic blood pressure 68 mm[Hg] Ace Messina MD Work Phone: [facility] 06-26-2024 14:14-0400 Heart rate 68 /min Ace Messina MD Work Phone: [facility] 06-26-2024 14:14-0400 Respiratory rate 15 /min Ace Messina MD Work Phone: [facility] 06-26-2024 14:14-0400 Systolic blood pressure 134 mm[Hg] Ace Messina MD Work Phone: [facility] 05-13-2024 09:29-0400 Diastolic blood pressure 72 mm[Hg] Minor Barbersotamir DO Work Phone: [facility] 05-13-2024 09:29-0400 Heart rate 60 /min Minor Barbersotamir DO Work Phone: [facility] 05-13-2024 09:29-0400 Systolic blood pressure 156 mm[Hg] Minor Barbersoa DO Work Phone: [facility] 05-13-2024 08:31-0400 Body height 177.8 cm Minor Barbersoa DO Work Phone: [facility] 05-13-2024 08:31-0400 Body mass index (BMI) [Ratio] 34.98 kg/m2 Minor Barbersoa DO Work Phone: [facility] 05-13-2024 08:31-0400 Body temperature 97.2 [degF] Minor Barberenma DO Work Phone: [facility] 05-13-2024 08:31-0400 Body weight 110.59 kg Minor Beasley DO Work Phone: [facility] 05-13-2024 08:31-0400 SaO2% (BldA) [Mass fraction] 98 % Minor Beasley DO Work Phone: [facility] 04-24-2024 14:24-0400 Body height 177.8 cm Regi Zhao [employer]ORDINATOR Work Phone: [facility] 04-24-2024 14:24-0400 Body mass index (BMI) [Ratio] 35.15 kg/m2 Regi Zhao [employer]ENS[employer] COORDINATOR Work Phone: [facility] 04-24-2024 14:24-0400 Body weight 111.13 kg Regi Zhao [employer]ENSATION COORDINATOR Work Phone: [facility] 04-24-2024 14:24-0400 Diastolic blood pressure 72 mm[Hg] Regi Zhao [employer] COMPENSATION COORDINATOR Work Phone: [facility] 04-24-2024 14:24-0400 Heart rate 55 /min Regi Zhao [employer] COMPENSATION COORDINATOR Work Phone: [facility] 04-24-2024 14:24-0400 Systolic blood pressure 136 mm[Hg] Regi Zhao [employer] COMPENSATION COORDINATOR Work Phone: [facility] 04-16-2024 14:03-0400 Body height 177.8 cm Ace Messina MD Work Phone: [facility] 04-16-2024 14:03-0400 Body mass index (BMI) [Ratio] 34.44 kg/m2 Ace Messina MD Work Phone: [facility] 04-16-2024 14:03-0400 Body weight 108.86 kg Ace Messina MD Work Phone: [facility] 12-25-2023 13:22-0500 Body height 177.8 cm Ace Messina MD Work Phone: [facility] 12-25-2023 13:22-0500 Body mass index (BMI) [Ratio] 34.47 kg/m2 Ace Messina MD Work Phone: [facility] 12-25-2023 13:22-0500 Body weight 108.95 kg Ace Messina MD Work Phone: [facility] 12-25-2023 13:22-0500 Diastolic blood pressure 70 mm[Hg] Ace Messina MD Work Phone: [facility] 12-25-2023 13:22-0500 Heart rate 83 /min Ace Messina MD Work Phone: [facility] 12-25-2023 13:22-0500 SaO2% (BldA) [Mass fraction] 100 % Ace Messina MD Work Phone: [facility] 12-25-2023 13:22-0500 Systolic blood pressure 110 mm[Hg] Ace Messina MD Work Phone: [facility] 04-10-2023 09:45-0500 Body height 175.3 cm Ace Messina MD Work Phone: [facility] 04-10-2023 09:45-0500 Body mass index (BMI) [Ratio] 36.77 kg/m2 Ace Messina MD Work Phone: [facility] 04-10-2023 09:45-0500 Body weight 112.95 kg Ace Messina MD Work Phone: [facility] 04-06-2023 11:49-0500 Body height 175.3 cm Minor Beasley DO Work Phone: [facility] 04-06-2023 11:49-0500 Body mass index (BMI) [Ratio] 36.77 kg/m2 Minor Beasley DO Work Phone: [facility] 04-06-2023 11:49-0500 Body temperature 97.3 [degF] Minor Beasley DO Work Phone: [facility] 04-06-2023 11:49-0500 Body weight 112.95 kg Minor Beasley DO Work Phone: [facility] 04-06-2023 11:49-0500 Diastolic blood pressure 60 mm[Hg] Minor Beasley DO Work Phone: [facility] 04-06-2023 11:49-0500 Heart rate 59 /min Minor Yepeza DO Work Phone: [facility] 04-06-2023 11:49-0500 SaO2% (BldA) [Mass fraction] 98 % Minor Yepeza DO Work Phone: [facility] 04-06-2023 11:49-0500 Systolic blood pressure 118 mm[Hg] Minor Yepeza DO Work Phone: [facility] 09-26-2022 12:32-0400 Body height 175.3 cm Minor Beasley DO Work Phone: [facility] 09-26-2022 12:32-0400 Body mass index (BMI) [Ratio] 36.77 kg/m2 Minor Beasley DO Work Phone: [facility] 09-26-2022 12:32-0400 Body temperature 97.3 [degF] Minor Beasley DO Work Phone: [facility] 09-26-2022 12:32-0400 Body weight 112.95 kg Minor Beasley DO Work Phone: [facility] 09-26-2022 12:32-0400 Diastolic blood pressure 71 mm[Hg] Minor Yepeza DO Work Phone: [facility] 09-26-2022 12:32-0400 Heart rate 55 /min Minor Beasley DO Work Phone: [facility] 09-26-2022 12:32-0400 SaO2% (BldA) [Mass fraction] 98 % Minor Yepeza DO Work Phone: [facility] 09-26-2022 12:32-0400 Systolic blood pressure 126 mm[Hg] Minor Yepeza DO Work Phone: [facility] 03-22-2022 08:05-0500 Body height 175.3 cm Ace Messina MD Work Phone: [facility] 03-22-2022 08:05-0500 Body mass index (BMI) [Ratio] 36.33 kg/m2 Ace Messina MD Work Phone: [facility] 03-22-2022 08:05-0500 Body weight 111.58 kg Ace Messina MD Work Phone: [facility] 08-16-2021 14:17-0400 Body mass index (BMI) [Ratio] 35.18 kg/m2 Louie HERR Work Phone: [facility] 08-16-2021 14:17-0400 Body temperature 97.7 [degF] Louie HERR Work Phone: [facility] 08-16-2021 14:17-0400 Body weight 108.05 kg Louie HERR Work Phone: [facility] 08-16-2021 14:17-0400 Diastolic blood pressure 69 mm[Hg] Louie HERR Work Phone: [facility] 08-16-2021 14:17-0400 Heart rate 66 /min Louie HERR Work Phone: [facility] 08-16-2021 14:17-0400 Systolic blood pressure 107 mm[Hg] Louie HERR Work Phone: [facility] 07-07-2021 08:05-0400 Body height 175.3 cm Renee Calle [employer]INATOR Work Phone: [facility] 07-07-2021 08:05-0400 Body mass index (BMI) [Ratio] 35.44 kg/m2 Renee Calle [employer] COORDINATOR Work Phone: [facility] 07-07-2021 08:05-0400 Body weight 108.86 kg Renee Calle [employer] COORDINATOR Work Phone: [facility] 07-07-2021 08:05-0400 Diastolic blood pressure 85 mm[Hg] Renee Calle [employer] COORDINATOR Work Phone: [facility] 07-07-2021 08:05-0400 Heart rate 55 /min Renee Calle [employer] COORDINATOR Work Phone: [facility] 07-07-2021 08:05-0400 Systolic blood pressure 119 mm[Hg] Renee Calle [employer] COORDINATOR Work Phone: [facility] 07-06-2021 19:27-0400 Body temperature 98.01 [degF] Azalea Leigh MD Work Phone: 4(243)467-948317 [place] [address] 07-06-2021 19:27-0400 Diastolic blood pressure 75 mm[Hg] Azalea Leigh MD Work Phone: 3(752)914-328717 [place] [address] 07-06-2021 19:27-0400 Systolic blood pressure 135 mm[Hg] Azalea Leigh MD Work Phone: 5(782)930-663717 [place] [address] 07-06-2021 19:00-0400 Heart rate 50 /min Azalea Leigh MD Work Phone: 6(469)925-744517 [place] [address] 07-06-2021 19:00-0400 Respiratory rate 20 /min Azalea Leigh MD Work Phone: 0(190)739-742817 [place] [address] 07-06-2021 19:00-0400 SaO2% (BldA) [Mass fraction] 96 % Azalea Leigh MD Work Phone: 3(495)033-402117 [place] [address] 07-06-2021 06:28-0400 Body height 175.3 cm Azaela Leigh MD Work Phone: 4(608)988-066817 [place] [address] 07-06-2021 06:28-0400 Body mass index (BMI) [Ratio] 35.44 kg/m2 Azalea Leigh MD Work Phone: [facility] 07-06-2021 06:28-0400 Body weight 108.86 kg Azalea Leigh MD Work Phone: [facility] 10-09-2018 13:30-0400 Body Temperature 97.5 [degF] Libby Spivey [employer] 10-09-2018 13:30-0400 BP Diastolic 83 mm[Hg] [facility] [place] 10-09-2018 13:30-0400 BP Systolic 159 mm[Hg] Libby TamayoBuzzinate Information Technology Companyquentin [facility] [place] 10-09-2018 13:30-0400 Pulse (Heart Rate) 55 /min Libby DillardS.N. Safe&[facility] [place] 10-09-2018 13:30-0400 Pulse Oximetry 97 % Libby Spivey [facility] [place] 10-09-2018 13:30-0400 Respiratory Rate 16 /min [facility] [place] 10-09-2018 07:56-0400 BMI (Body Mass Index) 30.42 kg/m2 [facility] [place] 10-09-2018 07:56-0400 Body weight 93.44 kg Libby DillardS.N. [facility] [place] 10-09-2018 07:56-0400 Height 175.3 cm Libby Felix [facility] , [place] 09-20-2018 16:34-0400 BMI (Body Mass Index) 30.42 kg/m2 Libby TamayoBuzzinate Information Technology Companyquentin [facility] [place] 09-20-2018 16:34-0400 Body Temperature 98.71 [degF] Libby TamayoBu[employer] Information Technology Companyquentin [place] 09-20-2018 16:34-0400 Body weight 93.44 kg Libby Spivey [facility] [place] 09-20-2018 16:34-0400 BP Diastolic 68 mm[Hg] Libby TamayoBu[employer] Information Technology Companyquentin [facility] [place] 09-20-2018 16:34-0400 BP Systolic 114 mm[Hg] Libby TamayoBuzzinate Information Technology Companyquentin [facility] [place] 09-20-2018 16:34-0400 Height 175.3 cm Libby Spivey [facility] , [place] 09-20-2018 16:34-0400 Pulse (Heart Rate) 54 /min [facility]yb [facility] 09-20-2018 16:34-0400 Pulse Oximetry 96 % Libby Felix [facility] [place] 09-20-2018 16:34-0400 Respiratory Rate 16 /min Libby Felix [facility], [place] NEGATED: Highlighted [id number] 08:41-0400 BMI (Body Mass Index) 34.09 kg/m2 Paulina Jenniffer [employer]ACHINE [employer] [facility] Work Phone: NEGATED: Highlighted [id number] 08:41-0400 Body weight 104.33 kg Paulina Jenniffer [employer]ACHINE [employer] [facility] Work Phone: NEGATED: Highlighted [id number] 08:41-0400 Body weight 105 kg Paulina Jenniffer [employer]ACHINE [employer] [facility] Work Phone: NEGATED: Highlighted [id number] 08:41-0400 Height 175.26 cm Paulina Jenniffer MACHINE BU[employer] [facility] Work Phone: NEGATED: Highlighted [id number] 08:41-0400 Height 175 cm Paulina Jenniffer MACHINE [employer] [facility] Work Phone: Encounters Encounter Date Encounter Type Care Provider Facility Start: 08-06-2024 End: 08-06-2024 Refill Ace Messina MD Work Phone: [facility] [place] Start: 07-12-2024 End: 07-12-2024 Refill Minor Beasley DO Work Phone: [facility] [place] Start: 06-26-2024 End: 06-26-2024 Office outpatient visit 40 minutes Ace Messina MD Work Phone: [facility] [place] Comment on above: Palpitations (Primar y Dx); Nonrheumatic aortic valve insufficiency Start: 06-26-2024 End: 06-26-2024 ambulatory [facility] Start: 06-07-2024 End: 06-07-2024 Clinical Support [facility] [place] Comment on above: Primary hypertension Start: 05-27-2024 End: 05-29-2024 Telephone encounter Minor Beasley DO Work Phone: [facility] - [place] Comment on above: Reschedule Start: 05-13-2024 End: 05-13-2024 Office outpatient visit 25 minutes Minor Beasley DO Work Phone: [facility] [place] Comment on above: Primary hypertension (Primary Dx); Gout, unspecified cause, unspecified chronicity, unspecified site; Prostate cancer screening; Polycystic kidney disease; Viral URI; Aortic valve insufficiency, etiology of cardiac valve disease unspecified; PAF (paroxysmal atrial fibrillation) (HCC); Chronic anticoagulation; History of renal transplant Start: 05-13-2024 End: 05-13-2024 ambulatory [facility] Start: 04-26-2024 End: 04-30-2024 Telephone encounter Ace Messina MD Work Phone: [facility] [place] Start: 04-24-2024 End: 04-24-2024 Office outpatient visit 25 minutes Regi Zhao APRN - WORKERS COMPENSATION COORDINATOR Work Phone: [facility] - Sarah Lara Comment on above: Chest pain, unspecif ied type Start: 04-24-2024 End: 04-24-2024 ambulatory REGI ZHAO [facility] Start: 04-16-2024 End: 04-16-2024 Subsequent hospital visit by physician Ace Messina MD Work Phone: [facility]-In[facility] Comment on above: PAF (paroxysmal atri al fibrillation) (HCC); Dilatation of aortic sinus of Valsalva; Aortic valve insufficiency, etiology of cardiac valve disease unspecified Start: 04-16-2024 End: 04-16-2024 ambulatory [facility] Start: 04-03-2024 End: 04-03-[address] Ramon Carrillo MD Work Phone: [facility] Work Phone: Start: 04-03-2024 End: 04-03-[address] Dilan Grayson MD -Laboratory, [place] Work Phone: Start: 04-03-2024 End: 04-03-2024 ambulatory Dilan Grayson Facility:[facility] Start: 02-14-2024 End: 02-14-2024 Refill Ace Messina MD Work Phone: [facility] Start: 01-31-2024 End: 02-01-2024 Refill Minor Beasley DO Work Phone: [facility] Start: 01-05-2024 End: 01-05-2024 Refill Minor Lynn Delfin DO Work Phone: [facility] Start: 12-25-2023 End: 12-25-2023 Office outpatient visit 40 minutes Ace Messina MD Work Phone: [facility] Comment on above: 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 Start: 09-26-2023 End: 09-26-2023 ambulatory Ramon Carrillo Facility:[facility] Start: 07-31-2023 End: 07-31-2023 Orders Only Minor Beasley DO Work Phone: [facility] Start: 06-28-2023 Refill Minor Barber lla DO Work Phone: [facility] Start: 05-30-2023 Refill Minor Barber lla DO Work Phone: [facility] Start: 04-10-2023 End: 04-10-2023 Subsequent hospital visit by physician Ace Messina MD Work Phone: [facility]In[facility] Comment on above: PAF (paroxysmal atri al fibrillation) (HCC); Dilatation of aortic sinus of Valsalva Start: 04-06-2023 End: 04-06-2023 Office outpatient visit 25 minutes Minor Barberlla DO Work Phone: [facility] Comment on above: Gastroesophageal ref lux disease without esophagitis (Primary Dx); Primary hypertension; PAF (paroxysmal atrial fibrillation) (HCC); Aortic valve insufficiency, etiology of cardiac valve disease unspecified; Polycystic kidney disease; History of renal transplant; Prostate cancer screening; Hyperlipidemia, unspecified hyperlipidemia type Start: 03-31-2023 End: 03-31-2023 ambulatory [facility] Work Phone: Start: 03-31-2023 End: 03-31-2023 Patient encounter procedure [facility] Work Phone: Start: 02-02-2023 Refill Minor Barber lla DO Work Phone: [facility] Start: 12-22-2022 Refill Minor Barber lla DO Work Phone: [facility] Clinical Communication Start: 10-14-2022 Patient encounter procedure [facility] Work Phone: Start: 10-11-2022 End: 10-11-2022 ambulatory [facility] Work Phone: Start: 10-11-2022 End: 10-11-2022 Patient encounter procedure [facility] Work Phone: Start: 09-26-2022 End: 09-26-2022 Office outpatient visit 15 minutes Minor F Delfin DO Work Phone: [facility] Comment on above: Primary hypertension (Primary Dx); History of renal transplant; Gastroesophageal reflux disease without esophagitis; Statin intolerance; PAF (paroxysmal atrial fibrillation) (CMS/HCC) (HCC) Start: 07-27-2022 Refill Sarah Charles PA-C Work Phone: [facility] Start: 06-10-2022 Refill Minor Bailey Amos rizzotamir DO Work Phone: [facility] Start: 05-26-2022 End: 06-05-2022 ambulatory [facility] Work Phone: Start: 05-26-2022 End: 06-05-2022 Discharged Recurring [facility] Start: 03-24-2022 End: 03-24-2022 Discharged Recurring [facility] Start: 03-22-2022 End: 03-22-2022 Subsequent hospital visit by physician Ace Messina MD Work Phone: [facility] Comment on above: Paroxysmal atrial fi brillation (CMS/HCC) (HCC); Dilated aortic root (CMS/HCC) (HCC) Start: 02-01-2022 End: 02-01-2022 ambulatory [facility] Work Phone: Start: 02-01-2022 End: 02-01-2022 Discharged Recurring [facility] Start: 12-07-2021 ambulatory MINOR BEASLEY [facility] Start: 11-22-2021 End: 11-22-2021 ambulatory [facility] Work Phone: Start: 11-22-2021 End: 11-22-2021 Discharged Recurring [facility] Start: 09-22-2021 End: 09-22-2021 ambulatory [facility] Work Phone: Start: 09-22-2021 End: 09-22-2021 Discharged Recurring [facility] Start: 08-16-2021 ambulatory MINOR BEASLEY Facilit y:[facility] Start: 08-16-2021 End: 08-16-2021 Office outpatient visit 40 minutes Louie HERR Work Phone: [facility] Comment on above: Kidney replaced by t ransplant (Primary Dx); Abnormal blood chemistry; Aftercare following organ transplant; Immunosuppressed status; High risk medication use Start: 07-22-2021 End: 08-05-2021 Discharged Recurring [facility] Start: 07-07-2021 End: 07-07-2021 Office outpatient visit 15 minutes Rneee Calle [employer] Work Phone: [facility] Comment on above: Paroxysmal atrial fi brillation (Primary Dx); Hypertension, essential Start: 07-07-2021 ambulatory RENEE CALLE Facility :[facility] Start: 07-06-2021 End: 07-06-2021 ambulatory SELF SELF Facility:[facility] Start: 07-06-2021 End: 07-06-2021 Subsequent hospital visit by physician Azalea Leigh MD Work Phone: Cardiology [facility] Comment on above: PAF (paroxysmal atri al fibrillation) Arrived Start: 06-22-2021 End: 06-22-2021 Discharged Recurring [facility] Start: 06-02-2021 ambulatory BHARATH MADERA Facility:[facility] Start: 05-24-2021 End: 05-24-2021 Discharged Recurring [facility] Start: 04-27-2021 End: 05-06-2021 Discharged Recurring [facility] Start: 03-24-2021 End: 03-24-2021 Discharged Recurring [facility] Start: 02-22-2021 End: 03-08-2021 Discharged Recurring [facility] Start: 02-15-2021 ambulatory HELDER BUSBY Facility:[facility] Start: 01-22-2021 End: 01-01-2022 Discharged Recurring [facility] Start: 11-23-2020 End: 11-23-2020 Subsequent hospital visit by physician Sarah Charles PA-C Work Phone: [facility] E[facility] Comment on above: Nonrheumatic aortic (valve) insufficiency; Nonrheumatic aortic valve insufficiency Start: 08-18-2020 Chart Update Minor Bailey Amos rizzotamir Work Phone: [facility] Gastroenterology-Joan n Work Phone: Start: 05-14-2020 End: 05-15-2020 ambulatory NONE NONE Facility:[facility] Start: 04-23-2020 End: 04-24-[address] ELIZABETH STEVENS MD Facility:[facility] Start: 10-25-2019 End: 10-25-2019 Patient encounter procedure Marina Arita MD Work Phone: [facility] Work Phone: Start: 04-16-2019 End: 04-16-2019 Subsequent hospital visit by physician Markus Barclay Work Phone: [facility] E[facility] Comment on above: Palpitations Start: 10-09-2018 End: 10-09-2018 Subsequent hospital visit by physician Libby Spivey Work Phone: [facility] General Surgery Comment on above: ESRD on dialysis (HC C) (Primary Dx) Start: 09-25-2018 End: 09-25-2018 Subsequent hospital visit by physician Fouzia Pool Work Phone: [facility] Comment on above: Grade 3 out of 6 int ensity murmur; Aortic dilatation (HCC); Chronic renal failure, stage 5 (HCC); Essential hypertension; ESRD on dialysis (HCC) Start: 09-20-2018 End: 09-20-2018 Subsequent hospital visit by physician Libby Spivey Work Phone: [facility] Pre-Admit Testing Comment on above: Arrived Start: 01-12-2017 Ambulatory LIBBY MENENDEZ Facility: [facility] Procedures Date Procedure Procedure Detail Performing Clinician Start: 05-10-2024 Adult depression scr eening assessment Minor Beasley DO Work Phone: Start: 04-24-2024 Ecg routine ecg w/le ast 12 lds w/i&r Markus England MD Work Phone: Start: 04-16-2024 Echo tthrc r-t 2d w/ wom-mode compl spec&colr d Ace Messina MD Work Phone: Start: 12-25-2023 Ecg routine ecg w/le ast 12 lds w/i&r Ace Messina MD Work Phone: Start: 11-27-2023 Adult depression scr eening assessment Minor Beasley DO Work Phone: Start: 05-04-2023 Lipid 1996 panel - S jess or Plasma Minor Beasley DO Work Phone: Start: 04-10-2023 TTE w or wo fol wcon,Doppler Ace Messina MD Work Phone: Start: 03-22-2022 TTE w or wo fol wcon,Doppler Ace Messina MD Work Phone: Start: 07-06-2021 Ephys evl trnsptl tx atrial fib isolat pulm vein Azalea Leigh MD Work Phone: Start: 07-06-2021 End: 07-06-2021 ACT* LOW RANGE, POC Azalea Leigh MD Work Phone: Start: 07-06-2021 Transesophageal echocardiography Azalea Leigh MD Work Phone: Start: 07-06-2021 CBC AND ELECTRONIC DIFF Trisha A Dudley [employer] Work Phone: Start: 07-06-2021 Complete blood count with white cell differential, automated Trisha A Dudley [employer] Work Phone: Start: 07-06-2021 Creatinine blood Trisha A Dudley [employer] Work Phone: Start: 11-23-2020 Echo tthrc r-t 2d w/ wom-mode compl spec&colr d Sarah Charles PA-C Work Phone: Start: 08-13-2020 End: 08-13-2020 Colonoscopy Minor Beasley Work Phone: Start: 05-21-2020 History of renal transplant Hi story of renal transplant Ace Messina MD Work Phone: Start: 10-25-2019 End: 10-25-2019 Arthrocentesis aspir&/inj major jt/bursa w/o us Marina Arita MD Work Phone: Start: 10-25-2019 End: 10-25-2019 Blood pressure screening not performed - reason not given Marina Arita MD Work Phone: Start: 10-25-2019 End: 10-25-2019 BMI documented as above normal parameters - follow-up documented Marina Arita MD Work Phone: Start: 10-25-2019 End: 10-25-2019 Documentation of current medications Marina Arita MD Work Phone: Start: 10-25-2019 End: 10-25-2019 Injection - betamethasone acetate 3 mg and betamethasone sodium phosphate 3 mg Marina Arita MD Work Phone: Start: 10-25-2019 End: 10-25-2019 Pain assessment documented as positive - follow-up documented Marina Arita MD Work Phone: Start: 10-25-2019 End: 10-25-2019 Radex shoulder complete minimum 2 views Marina Arita MD Work Phone: Start: 10-25-2019 End: 10-25-2019 Tobacco non-user Marina Arita MD Work Phone: Start: 08-12-2019 Lipid 1996 panel - S jess or Plasma Azalea Leigh MD Work Phone: Start: 08-01-2019 History of renal transplant De ceased-donor kidney transplant recipient Azalea Leigh MD Work Phone: Start: 10-09-2018 OPERATIVE REPORT 3m Sca nning Start: 10-09-2018 Potassium serum plas ma/whole blood Tereso Hutchison Work Phone: Start: 09-25-2018 Echo ttc r-t 2d w/ wom-mode compl spec&colr d Fouzia R Mayo Work Phone: Start: 07-26-2018 Microscopic examinat ion of blood, culture Comment on above: Order Comment: Speci men Source Comment:Blood Performed By: #### H EMDF, LIPA4, CMP3 #### [email or web address] [address] [place] [address] Start: 07-25-2018 Microscopic examinat ion of blood, culture Comment on above: Order Comment: Speci men Source Comment:Blood Performed By: #### H EMDF, LIPA4, CMP3 #### [email or web address] [address] [place] [address] Start: 04-13-2015 History of renal transplant Hi story of renal transplant Sarah Charles PA-C Work Phone: Cholecystectomy Minor Bailey Pet rilla Work Phone: Colonoscopy Minor Bailey Sheri la Work Phone: Comment on above: 2012 and 2015; Esophagogastroduodenoscopy E ugmariano Lynn Luchoa Work Phone: Comment on above: 2012, 2015; History of renal transplant Carmen l transplant recipient Minor Bailey Petrilla Work Phone: History of renal transplant Kidn ey replaced by transplant Louie HERR Work Phone: History of renal transplant Hist ory of renal transplant Minor F Petrilla DO Work Phone: History of renal transplant Hist ory of renal transplant Minor F Luchoa DO Work Phone: History of renal transplant Hist ory of renal transplant Minor Bailey Luchoa DO Work Phone: Procedure on abdomen Minor Bailey Luchoa Work Phone: Replacement of perit mars dialysis catheter Minor Beasley Work Phone: Tonsillectomy Minor norwood Work Phone: Transplant of kidney Minor Beasley Work Phone: Comment on above: 1996 and 2019; NEGATED: Highlighted rowStart: 10-25-2019 End: 10-25-2019 Documentation of current medications Paulina Abad LPN Plan of Treatment Date Care Activity Detail Author Start: 08-13-2030 Screening for malignant neoplasm of colon [facility] Start: 05-03-2028 Lipid panel Lipid Panel [facility] Start: 08-24-2025 Colon cancer screen colonoscopy Colon cancer screen colonoscopy [place], [place] Start: 05-10-2025 Depression Screening Depression Screening [facility] Start: 11-26-2024 Depression Screening Depression Screening [facility] Start: 11-12-2024 End: 11-12-2024 Patient encounter procedure 11/12/2024 8:20 AM EDT Office Visit [facility] [address] [place] [address] Amosenma Minor BaileyDO [address] [place] [address] [facility] Start: 11-11-2024 End: 11-11-2024 Patient encounter procedure 11/11/2024 2:00 PM EDT Appointment [facility] Non-Invasive Cardiology [address] [place] [address] Ace Messina MD [address] [place], [place] [id number] [facility] Non-Invasive Cardiology Start: 10-16-2024 End: 06-26-2026 Heart Transthoracic Transthoracic echocardiogram (TTE) complete with contrast, bubble, strain, and 3D PRN CV Echocardiography Routine Nonrheumatic aortic valve insufficiency Expected: 10/16/2024 (Approximate), Expires: 06/26/2026 [facility] Comment on above: Expected: 10/16/2024 (Approximate), Expi res: 06/26/2026 Start: 10-07-2024 Influenza vaccination Influenza Vaccine (#1) [facility] Start: 08-11-2024 Fasting lipid profile LIPID SCREENING [facility] Start: 08-11-2024 Lipid panel Lipid Panel [facility] Start: 06-26-2024 End: 06-26-2024 Patient encounter procedure 06/26/2024 2:20 PM EDT [facility] [address] [place] [address] Ace Messina MD [address] [place] [address] [address] [place] [address] [facility] Start: 06-10-2024 End: 06-10-2024 Clinical Support 06/10/2024 2:00 PM EDT Clinical Support [facility] [place] [address] [place] [address] [facility] Start: 06-07-2024 End: 06-07-2024 Clinical Support 06/07/2024 9:00 AM EDT [facility] [address] [place] [address] [facility] Start: 05-13-2024 End: 05-13-2025 PSA Total (Screening) PSA Total (Screening) Lab Routine Prostate cancer screening Expected: 05/13/2024 (Approximate), Expires: 05/13/2025 [facility] Work Phone: Comment on above: Expected: 05/13/2024 (Approximate), Expi res: 05/13/2025 Start: 05-13-2024 End: 05-13-2024 Patient encounter procedure 05/13/2024 9:00 AM EDT Office Visit [facility] [place] [address] [place] [address] Minor Beasley DO [address] [place] [address] [facility] Start: 04-16-2024 End: 04-16-2024 Patient encounter procedure 04/16/2024 2:00 PM EDT Appointment [facility] Non-Invasive Cardiology [address] [place] [address] Ace Messina MD [address] [place] [address] [facility] Non-Invasive Cardiology Start: 04-16-2024 End: 12-24-2025 Heart Transthoracic Transthoracic echocardiogram (TTE) complete with contrast, bubble, strain, and 3D PRN CV Echocardiography Routine PAF (paroxysmal atrial fibrillation) (HCC) Dilatation of aortic sinus of Valsalva Aortic valve insufficiency, etiology of cardiac valve disease unspecified Expected: 04/16/2024 (Approximate), Expires: 12/24/2025 [facility] Work Phone: Comment on above: Expected: 04/16/2024 (Approximate), Expi res: 12/24/2025 Start: 04-03-2024 Vitamin D, 25-hydroxy measurement [facility] Start: 12-25-2023 End: 12-25-2023 Patient encounter procedure 12/25/2023 1:20 PM EST Office Visit [facility] [address] [place] [address] Ace Messina MD [address] [place], [place] [id number] [facility] Start: 11-29-2023 Pneumococcal 0-64 years Vaccine (2 of 4 - PPSV23) Pneumococcal 0-64 years Vaccine (2 of 4 - PPSV23) [facility] Work Phone: Start: 10-08-2023 COVID-19 Vaccine ( season) COVID-19 Vaccine ( season) [facility] Start: 10-08-2023 Influenza vaccination Influenza Vaccine (Season Ended) [facility] Start: 10-05-2023 End: 10-05-2023 Patient encounter procedure 10/05/2023 11:30 AM EDT Office Visit [facility] Family Medicine [address] [place] [address] Minor Beasley DO [address] [place] [address] [facility] Start: 04-10-2023 End: 04-10-2023 Patient encounter procedure 04/10/2023 10:00 AM EST Appointment [facility] Non-Invasive Cardiology [address] [place] [address] Ace Messina MD [address] [place] [address] [facility] Non-Invasive Cardiology Start: 04-06-2023 End: 04-05-2024 Lipid 1996 panel - Serum or Plasma Lipid panel Lab Routine Hyperlipidemia, unspecified hyperlipidemia type Expected: 04/06/2023 (Approximate), Expires: 04/05/2024 [facility] Comment on above: Expected: 04/06/2023 (Approximate), Expi res: 04/05/2024 Start: 04-06-2023 End: 04-05-2024 PSA Total (Screening) PSA Total (Screening) Lab Routine Prostate cancer screening Expected: 04/06/2023 (Approximate), Expires: 04/05/2024 [facility] Work Phone: Comment on above: Expected: 04/06/2023 (Approximate), Expi res: 04/05/2024 Start: 04-05-2023 End: 04-05-2023 Patient encounter procedure [facility] Start: 12-15-2022 End: 12-15-2022 Patient encounter procedure [facility] Start: 11-04-2022 End: 11-04-2022 Patient encounter procedure [facility] Start: 10-07-2022 COVID-19 Vaccine ( season) COVID-19 Vaccine ( season) [facility] Start: 10-07-2022 Influenza vaccination [facility] Start: 08-16-2022 End: 08-16-2022 Patient encounter procedure 08/16/2022 Office Visit Transplant Surgery Louie Plasencia MBBS [address] [place] [address] [facility] [place] [facility] Start: 01-03-2022 Zoster Vaccines (2 of 2) Zoster Vaccines (2 of 2) [facility] Start: 12-08-2021 End: 12-08-2021 Patient encounter procedure 12/08/2021 Office Visit Electrophysiology Azalea Leigh MD [address] [place] [address] Cardiovascular Testing Outpatient Care [facility] Start: 11-16-2021 End: 11-16-2021 Patient encounter procedure 11/16/2021 Office Visit Electrophysiology Renee Calle, [employer] COORDINATOR [address] [place] [address] [facility] [place] Start: 10-07-2021 Influenza vaccination [facility] Start: 08-27-2021 Diabetes mellitus screening Diabetes Screening [facility] Start: 08-17-2021 End: 07-06-2022 Cardiac telemetry [employer] ECG Routine PAF (paroxysmal atrial fibrillation) Expected: 08/17/2021, Expires: 07/06/2022 [facility] Comment on above: Expected: 08/17/2021, Expires: Start: 08-16-2021 End: 08-16-2021 Patient encounter procedure 08/16/2021 Office Visit Transplant Surgery Louie Plasencia MBBS [address] [place] [address] [facility] Transplant [place] [facility] Start: 08-13-2021 End: 08-13-2022 ALLOSCREEN RECIPIENT (POST TX PRA) ALLOSCREEN RECIPIENT (POST TX PRA) Lab Routine Kidney replaced by transplant Abnormal blood chemistry Aftercare following organ transplant Immunosuppressed status High risk medication use Expected: 08/13/2021, Expires: 08/13/2022 [facility] Comment on above: Expected: 08/13/2021, Expires: 3 Start: 08-13-2021 End: 08-13-2022 BK VIRUS DNA QN, PCR, PLASMA BK VIRUS DNA QN, PCR, PLASMA Lab Routine Kidney replaced by transplant Abnormal blood chemistry Aftercare following organ transplant Immunosuppressed status High risk medication use Expected: 08/13/2021, Expires: 08/13/2022 [facility] Comment on above: Expected: 08/13/2021, Expires: 3 Start: 08-13-2021 End: 08-13-2022 URINE PROTEIN/CREA RATIO, RANDOM URINE PROTEIN/CREA RATIO, RANDOM Fluids Routine Kidney replaced by transplant Abnormal blood chemistry Aftercare following organ transplant Immunosuppressed status High risk medication use Expected: 08/13/2021, Expires: 08/13/2022 [facility] Comment on above: Expected: 08/13/2021, Expires: 3 Start: 07-07-2021 End: 07-07-2021 Telemedicine consultation with patient 07/07/2021 Telemedicine Electrophysiology Renee Calle, [employer] COMPENSATION COORDINATOR [address] [place] [id number] [facility] Start: 03-18-2021 COVID-19 Vaccine (4 - Booster) COVID-19 Vaccine (4 - Booster) [facility] [employer] Start: 03-18-2021 COVID-19 Vaccine (5 - Booster for Pfizer series) COVID-19 Vaccine (5 - Booster for Pfizer series) [facility] [employer] Start: 10-07-2020 Influenza vaccination Flu vaccine (#1) [employer] Work Phone: Start: 06-11-2020 COVID-19 Vaccine (3 - Pfizer risk 3-dose series) COVID-19 Vaccine (3 - Pfizer risk 3-dose series) [facility] Work Phone: Start: 06-11-2020 COVID-19 VACCINE (3 - Pfizer risk series) COVID-19 VACCINE (3 - Pfizer risk series) [facility] Start: 2020 RSV Immunization aged 60 or older (1 - 1-dose 60+ series) RSV Immunization aged 60 or older (1 - 1-dose 60+ series) [facility] Start: 2020 RSV Immunization for Adults (1 - Risk 60-74 years 1-dose series) RSV Immunization for Adults (1 - Risk 60-74 years 1-dose series) [facility] Start: 02-22-2020 Lipid panel Lipid screen [facility] Work Phone: Start: 02-22-2020 Lipid screen Lipid screen [facility] [place] Start: 10-28-2019 End: 10-28-2019 Appointment Appointment [facility] Work Phone: Start: 10-25-2019 End: 10-25-2019 Appointment Appointment [facility] Work Phone: Start: 10-25-2019 End: 10-25-2019 TSH Qn MRI right shoulder without contrast [facility] Work Phone: Start: 10-10-2019 Potassium monitoring Potassium monitoring [facility] Work Phone: Start: 07-23-2019 Creatinine measurement Creatinine monitoring [facility] Work Phone: Start: 07-23-2019 Creatinine monitoring Creatinine monitoring [facility] , [place] Start: 07-23-2019 Potassium monitoring Potassium monitoring [facility] [place] Start: 10-24-2018 End: 10-24-2018 Office Visit 10/24/2018 Office Visit Vascular Surgery Libby Spivey MD [address] [place] [address] [phone] [facility] Start: 10-10-2018 End: 10-10-2018 Office Visit 10/10/2018 Office Visit Vascular Surgery Libby Spivey MD [address] [place] [address] [phone] [facility] Start: 10-07-2018 Influenza vaccination Flu vaccine (#1) [place], [place] Start: 09-27-2018 End: 09-27-2018 Appointment 09/27/2018 Appointment General Surgery Libby Spivey MD [address] [place] [address] [phone] [facility] General Surgery Start: 09-18-2018 Annual Wellness Visit (AWV) Annual Wellness Visit (AWV) [place], [place] Start: 2010 Prostate specific antigen measurement PROSTATE CANCER SCREENING DISCUSSION [facility] Start: 2010 Shingles Vaccine (1 of 2) Shingles Vaccine (1 of 2) [place], [place] Start: 2010 Zoster vaccine hzv live for subcutaneous use ZOSTER (SHINGLES) VACCINE (1 of 2) [facility] Start: 2005 Colonoscopy COLORECTAL CANCER SCREENING DISCUSSION [facility] Start: 1980 Hepatitis B Vaccines (1 of 3 - Risk Dialysis 4-dose series) Hepatitis B Vaccines (1 of 3 - Risk Dialysis 4-dose series) [facility] Start: 04-23-1979 DTaP/Tdap/Td vaccine (1 - Tdap) DTaP/Tdap/Td vaccine (1 - Tdap) [place] Start: 04-23-1979 DTaP/Tdap/Td Vaccines (1 - Tdap) DTaP/Tdap/Td Vaccines (1 - Tdap) [facility] Start: 04-23-1979 Hepatitis B Vaccine (1 of 3 - Risk Recombivax 3-dose series) Hepatitis B Vaccine (1 of 3 - Risk Recombivax 3-dose series) [place] Start: 04-23-1979 Third diphtheria, tetanus and acellular pertussis (DTaP) vaccination TDAP (ADULT) [facility] Start: 1978 Diabetes mellitus screening Diabetes Screening [facility] Start: 1978 Hepatitis C screening Hepatitis C Screening [facility] Start: 1978 Tetanus vaccination TETANUS [facility] Start: 04-23-1975 HIV screen HIV screen [place], [place] Start: 04-23-1975 HIV screening HIV screen [facility] Work Phone: Start: 1972 Depression Screening Depression Screening [facility] Start: 1966 Pneumococcal 0-64 years Vaccine (1 of 3 - PCV13) Pneumococcal 0-64 years Vaccine (1 of 3 - PCV13) [place] Start: 1966 PNEUMOCOCCAL VACCINE SERIES (1 - PCV) PNEUMOCOCCAL VACCINE SERIES (1 - PCV) [facility] Start: 1966 Pneumococcal Vaccine: Pediatrics (0 to 5 Years) and At-Risk Patients (6 to 64 Years) (1 - PCV) Pneumococcal Vaccine: Pediatrics (0 to 5 Years) and At-Risk Patients (6 to 64 Years) (1 - PCV) [facility] Start: 1961 MMR Vaccines (1 of 1 - Standard series) MMR Vaccines (1 of 1 - Standard series) [facility] Start: 1960 Hepatitis B Vaccines (1 of 3 - 3-dose series) Hepatitis B Vaccines (1 of 3 - 3-dose series) [facility] Start: 1960 HIV screening HIV Screening [facility] Start: 1960 Lipid panel Lipid Panel [facility] Start: 1960 Screening for malignant neoplasm of colon [facility] End: 10-09-2018 Blood glucose - POCT Blood glucose - POCT Point of Care Testing Routine One Time for 1 Occurrences starting 10/09/2018 until 10/09/2018 [facility] [place] Comment on above: One Time for 1 Occurrences starting 04/2018 until 10/09/2018 End: 10-09-2018 CBC CBC Lab STAT One Time for 1 Occurrences starting 10/09/2018 until 10/09/2018 [facility] [place] Comment on above: One Time for 1 Occurrences starting 04/2018 until 10/09/2018 End: 10-09-2018 Creatinine [Mass/Vol] Creatinine, serum Lab Routine One Time for 1 Occurrences starting 10/09/2018 until 10/09/2018 [facility] [place] Comment on above: One Time for 1 Occurrences starting 04/2018 until 10/09/2018 ECG 12 lead - CLINIC PERFORMED ECG 12 lead - CLINIC PERFORMED CV ECG Routine Palpitations Ordered: 06/26/2024 [facility] [employer] [facility] Work Phone: Comment on above: Ordered: 06/26/2024 Electrophysiology study EP PROCE DURE - EPS/ABLATION/DEVICE Electrophysiology Routine PAF (paroxysmal atrial fibrillation) 07/06/2021 4:31 PM EDT [facility] Incentive spirometry Incentive s pirometry Respiratory Care Routine Q1H PRN until discontinued starting 10/09/2018 [facility] [place] Comment on above: Q1H PRN until discontinued starting 04/2018 Initiate Oxygen Ther apy Protocol Initiate Oxygen Therapy Protocol Respiratory Care Routine Daily until discontinued starting 10/09/2018 [facility] Comment on above: Daily until discontinued starting 2018 Phase I & II - meter ed glucose Phase I & II - metered glucose Point of Care Testing Routine As Needed until discontinued starting 10/09/2018 [facility] [place] Comment on above: As Needed until discontinued starting End: 10-09-2018 , urine , urine Lab Routine One Time for 1 Occurrences starting 10/09/2018 until 10/09/2018 [facility] Comment on above: One Time for 1 Occurrences starting 04/2018 until 10/09/2018 End: 10-09-2018 Protime-INR Protime-INR Lab Routine One Time for 1 Occurrences starting 10/09/2018 until 10/09/2018 [facility] [place] Comment on above: One Time for 1 Occurrences starting 04/2018 until 10/09/2018 Tacrolimus [Mass/vol ume] in [facility] Tacrolimus [Mass/vol ume] in [facility] Tacrolimus [Mass/vol ume] in [facility] Immunizations Immunization Date Immunization Notes Care Provider [facility] 11-27-2023 Seasonal trivalent influenza vaccine, adjuvanted, preservative free Minor Beasley DO Work Phone: [facility] 11-27-2023 influenza virus vaccine, unspecified formulation Ace Messina MD Work Phone: [facility] 02-10-2023 influenza, injectabl e, quadrivalent, preservative free Minor Beasley DO Work Phone: [facility] 09-26-2022 Pneumococcal Conjuga te PCV20, Pf (Prevnar 20) Minor Beasley DO Work Phone: [facility] 01-26-2022 zoster vaccine recombinant Minor Beasley DO Work Phone: [facility] 11-08-2021 zoster vaccine recombinant Minor Beasley DO Work Phone: [facility] [employer] 05-24-2020 Covid (Pfizer) [facility] 05-14-2020 Pfizer-BioNTech COVID-19 Vacc 30 MCG/0.3ML Intramuscular Suspension Minor Beasley Work Phone: [facility] Comment on above: Series: 04-23-2020 Pfizer-BioNTech COVID-19 Vacc 30 MCG/0.3ML Intramuscular Suspension Minor Beasley Work Phone: [facility] Comment on above: Series: 10-31-2018 influenza virus vaccine, unspecified formulation Azalea Leigh MD Work Phone: [facility] Payers Date Payer Category Payer Self-pay [id number] 2022 Commercial Managed Care - [id number] 2022 Unknown [id number] 2021 Medicare [id number] 2018 Unknown BCBS BCBS OUT OF STATE xxxxxxxxxxxxxxx 2018-Present [address] [place] [address] xxxxxxxxxxxxxxx [id number] 2017 Medicare MEDICARE MEDICAR E PART A AND B xxxxxxxxxxx 2017-Present [phone] [place] [address] xxxxxxxxxxx [id number] 2017 Medicare MEDICARE MEDICAR E PART A AND B xxxxxxxxxx 2017-Present [phone] [id number] [place] [address] xxxxxxxxxx [id number] 2017 Medicare [id number] 2017 Unknown 1960 Unknown [id number] 419 1960 Unknown [id number]. 419 1960 Unknown [id number]. 594 1960 Unknown [id number]. 594 1960 Unknown [id number]. 594 1960 Unknown [id number]. 594 1960 Unknown [id number]. 594 1960 Unknown [id number]. 594 1960 Unknown [id number]. 594 1959 Medicare [id number] 1959 Unknown [id number] Unknown [id number] Unknown [id number] 462 Unknown [id number] 462 Social History Date Type Detail Facility Start: 10-09-2018 End: 12-02-2021 Tobacco smoking status NHIS Never smoker [facility] Start: 10-09-2018 End: 05-10-2024 Alcohol intake No [place], [place] Start: 1960 Sex Assigned At Not on file M [place], [place] Start: 04-09-2019 End: 08-23-2020 Alcohol intake Current non-drinker of alcohol (finding) [place], [place] Start: 11-25-2020 End: 11-25-2020 Assertion Unknown if ever smoked [facility] Work Phone: Start: 08-23-2020 End: 05-10-2024 Patient has living will Patient has living will [facility] Work Phone: Start: 08-23-2020 End: 12-02-2021 Tobacco use and exposure Never used [facility] Work Phone: Start: 08-01-2019 End: 10-28-2019 History SDOH Alcohol Frequency 1 [facility] Work Phone: Start: 10-28-2019 History SDOH Social Connections Phone 5 [facility] Work Phone: Start: 10-28-2019 History SDOH Social Connections Get Together 2 [facility] Work Phone: Start: 10-28-2019 History SDOH Social Connections Denominational 3 [facility] Work Phone: Start: 10-28-2019 History SDOH Physica l Activity DPW 0 [facility] Work Phone: Start: 1960 Sex Assigned At Male [facility] Start: 06-02-2021 End: 06-26-2024 Alcohol intake Lifetime non-drinker (finding) [facility] Start: 12-15-2021 End: 09-26-2022 Alcohol intake Ex-drinker (finding) [facility] Start: 03-07-2022 End: 09-26-2022 Exposure to SARS-CoV-2 (event) Not sure [facility] Start: 09-06-2021 End: 04-18-2024 Sex Male (finding) [facility] How often do you nee d to have someone help you when you read instructions, pamphlets, or other written material from your doctor or pharmacy [SILS] Never [facility] Has the Insights, viseto, or water [employer] threatened to shut off services in your home in past 12Mo No [facility] Do you belong to any clubs or organizations such as rastafarian groups, unions, fraternal or athletic groups, or school groups? Yes [facility] Are you now , , , , never or living with a partner? [facility] How often to you hav e a drink containing alcohol? Never [facility] Do you feel stress - tense, restless, nervous, or anxious, or unable to sleep at night because your mind is troubled all the time - these days [OSQ] Only a little [facility] (I/We) worried wheth er (my/our) food would run out before (I/we) got money to buy more. Never true [facility] Medical Equipment Procedure Code Equipment Code Equipment Origin al Text Equipment Identifier Dates Device Closure Proglide 6fr - [id number] FDA Start: 07-06-2021 Stent Ureteral D bl J 6 X 12 - [id number] Start: 08-01-2019 Clinical Notes 04-02-2020 to 08-06-2024 Telephone Encounter - Bess Monaco - 08/06/2024 1:34 PM EDTTelephone Encounter - Bess Monaco - 08/06/2024 1:34 PM EDTTelephone Encounter - Laquita Dubois - 08/06/2024 1:27 PM EDT Note Date & Type Note Facility 08-06-2024 Telephone encounter Note Medication name: enalapril (Vasotec) 10 MG tablet Medication dosage: 10 mg (Miligrams Monthly quantity needed: 30 How many day supply requestin days Medication route: oral (PO) Medication administration time(s): daily If taking medication PRN, reason for taking medication: N/A If this is a controlled substance do you receive this or any other controlled medication from any other doctor or facility: N/A Ordering provider: Dr. Beasley Date of last office visit: 06/07/24 Date of next office visit: 11/12/24 Date of last refill: (see medication tab): 05/13/24 Updated/Validated preferred pharmacy: Yes Patient instructed to contact the pharmacy prior to picking up the medication: n/a [facility] 08-06-2024 Miscellaneous Notes Medication name: enalapril (Vasotec) 10 MG tablet Medication dosage: 10 mg (Miligrams Monthly quantity needed: 30 How many day supply requestin days Medication route: oral (PO) Medication administration time(s): daily If taking medication PRN, reason for taking medication: N/A If this is a controlled substance do you receive this or any other controlled medication from any other doctor or facility: N/A Ordering provider: Dr. Beasley Date of last office visit: 06/07/24 Date of next office visit: 11/12/24 Date of last refill: (see medication tab): 05/13/24 Updated/Validated preferred pharmacy: Yes Patient instructed to contact the pharmacy prior to picking up the medication: n/a documented in this encounter [facility] 08-06-2024 Telephone encounter Note Patient called, and requested refill of Xarelto to be sent to [facility]. [facility] 08-06-2024 Miscellaneous Notes Patient called, and requested refill of Xarelto to be sent to [facility]. documented in this encounter [facility] 07-12-2024 Telephone encounter Note Recent Visits Date Type Provider Dept 05/13/24 Office Visit Minor Lynn DO [facility] 11/27/23 Office Visit Minor Bailey DO [facility] Showing recent visits within past 365 days and meeting all other requirements Future Appointments No visits were found meeting these conditions. Showing future appointments within next 90 days and meeting all other requirements Requested Prescriptions Pending Prescriptions Disp Refills metoprolol tartrate (Lopressor) 50 MG tablet [Pharmacy Med Name: METOPROLOL TARTRATE TABS 50MG] 180 tablet 1 Sig: TAKE 1 TABLET TWICE A DAY Provider: Minor Beasley DO Verified pharmacy: yes Verified day(s) supplied: yes Verified refill(s) needed (previous prescription showing no refills in chart): Yes Have you received any controlled medications from any other provider? N/A Overdue for visit: N/A If yes - patient scheduled? N/A Most recent labs completed in chart? N/A None [facility] 07-12-2024 Miscellaneous Notes Recent Visits Date Type Provider Dept 05/13/24 Office Visit Minor Bailey DO [facility] 11/27/23 Office Visit Minor Bailey DO [facility] Showing recent visits within past 365 days and meeting all other requirements Future Appointments No visits were found meeting these conditions. Showing future appointments within next 90 days and meeting all other requirements Requested Prescriptions Pending Prescriptions Disp Refills metoprolol tartrate (Lopressor) 50 MG tablet [Pharmacy Med Name: METOPROLOL TARTRATE TABS 50MG] 180 tablet 1 Sig: TAKE 1 TABLET TWICE A DAY Provider: Minor Beasley DO Verified pharmacy: yes Verified day(s) supplied: yes Verified refill(s) needed (previous prescription showing no refills in chart): Yes Have you received any controlled medications from any other provider? N/A Overdue for visit: N/A If yes - patient scheduled? N/A Most recent labs completed in chart? N/A None documented in this encounter [facility] 06-26-2024 History of Present illness Narrative [facility] Cardiology Note Visit type: New Chief Complaint: No chief complaint on file. History of Present Illness: Edmond Lama is a 64 y.o. 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 He has a history of aortic aneurysm and moderate aortic regurgitation. He is here for a routine follow-up. He had routine echocardiogram completed 04/16/24 which noting aortic regurgitation moderate-severe,preserved LVEF. Aortic root 4.6 cm. He tells me that when he saw Regi Zhao couple of months ago he was having some heartburn that has resolved with PPI. He denies chest pain pressure or heaviness. He denies shortness of breath orthopnea or PND. He has no exertional angina. Past Medical History: Past Medical History: Diagnosis Date Anticoagulant long-term use 06/2021 Xarelto Aortic insufficiency 11/06/2018 moderate to severe 04/30 ECHO- Dr. 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 Elizabeth- due 5-10 yrs History of renal transplant 1996 and 2019 Hyperlipidemia 08/01/2017 statin intolerance- defers rx Hypertension 05/04/2015 PAF (paroxysmal atrial fibrillation) (HCC) 10/28/2019 s/p ablation 06/27 at [facility], nml LVEF 04/30 Polycystic kidney disease 1994 Prostate cancer screening 05/2024 lab only Statin intolerance Past Surgical History Past Surgical History: Procedure Laterality Date CARDIAC ABLATION P ROCEDURE (HISTORICAL) 06/2021 at [facility] for At Fib CHOLECYSTECTOMY 1999 COLONOSCOPY W/ POLYPECTOMY 2012 Dr Reis-small polyp COLONOSCOPY W/ POLYPECTOMY 08/2020 Dr Reis-small polyp-due 5-10 yrs HX AV GRAFT CREATION Left 10/09/2018 [place] OTHER SURGICAL HISTORY exp lap for abd lymphocele drainage OTHER SURGICAL HISTORY 10/08/2015 Laparoscopic peritoneal dialysis catheter placement-Dr Arshad OTHER SURGICAL HISTORY 07/22/2018 Removal peritoneal dialysis catheter at [facility] TONSILLECTOMY 1965 TRANSPLANT, KIDNEY, OPEN 1996 [facility] TRANSPLANT, KIDNEY, OPEN 07/2019 [facility] UPPER GASTROINTESTINAL ENDOSCOPY 08/2020 Dr Reis-mild GERD VENTRAL HERNIA REPAIR 2013 Family History Family History Problem Relation Name Age of Onset Cerebral aneurysm Mother at age 55 Diabetes Father Dementia Father at age 82 No Known Problems Sister Pilar No Known Problems Brother Arjun No Known Problems Brother Scot Other Maternal Grandmother age 80 Cancer Maternal Grandfather ? Type Other Paternal Grandmother in mid 70s Dementia Paternal Grandfather age 79 Social History Social History Tobacco Use Smoking status: Never Smokeless tobacco: Never Vaping Use Vaping status: Never Used Substance Use Topics Alcohol use: Never Drug use: Never Comment: Caffiene: Rare Allergies: Allergies Allergen Reactions Statins Other Muscle weakness Back pain Nickel When he gets anant-red, inflamed Medications: Current Outpatient Medications: enalapril (Vasotec) 10 MG tablet, Take 1 tablet (10 mg) by mouth daily for 90 doses., Disp: 90 tablet, Rfl: 1 famotidine (Pepcid) 20 MG tablet, Take 1 tablet (20 mg) by mouth 2 times daily., Disp: 180 tablet, Rfl: 3 Lactobacillus (PROBIOTIC ACIDOPHILUS PO), Take by mouth daily., Disp: , Rfl: magnesium oxide (Mag-Ox), Take 400 mg by mouth in the morning and 400 mg in the evening., Disp: , Rfl: metoprolol tartrate (Lopressor) 50 MG tablet, Take 1 tablet (50 mg) by mouth 2 times daily., Disp: 180 tablet, Rfl: 1 Multiple Vitamin (multivitamin) tablet, Take 1 tablet by mouth daily., Disp: , Rfl: Multiple Vitamins-Minerals (PRESERVISION AREDS 2 PO), Take by mouth daily., Disp: , Rfl: mycophenolate (Cellcept) 500 MG tablet, Take 500 mg by mouth 2 times daily., Disp: , Rfl: tacrolimus (Prograf) 0.5 MG capsule, Take 1 mg by mouth 2 times daily. 1 mg and 1/2 at night, Disp: , Rfl: Xarelto 20 MG tablet, TAKE 1 TABLET BY MOUTH EVERY DAY WITH EVENING MEAL., Disp: 90 tablet, Rfl: 1 Review of Systems: Review of Systems Constitutional: Negative for activity change, chills, diaphoresis, fatigue and fever. HENT: Negative for nosebleeds and trouble swallowing. Eyes: Negative for discharge and visual disturbance. Respiratory: Negative for apnea, cough, chest tightness, shortness of breath and wheezing. Cardiovascular: Negative for chest pain, palpitations and leg swelling. Gastrointestinal: Negative for abdominal distention, abdominal pain, blood in stool, diarrhea, nausea and vomiting. Endocrine: Negative for cold intolerance and heat intolerance. Genitourinary: Negative for hematuria and urgency. Musculoskeletal: Negative for gait problem and myalgias. Skin: Negative for color change and rash. Neurological: Negative for dizziness, seizures, syncope, facial asymmetry, speech difficulty, weakness, light-headedness, numbness and headaches. Hematological: Does not bruise/bleed easily. Psychiatric/Behavioral: Negative for dysphoric mood and hallucinations. Physical Examination: Vitals: There were no vitals filed for this visit. There is no height or weight on file to calculate BMI. Physical Exam Constitutional: Appearance: Normal appearance. HENT: Head: Normocephalic. Mouth/Throat: Pharynx: No oropharyngeal exudate. Eyes: General: No scleral icterus. Right eye: No discharge. Left eye: No discharge. Cardiovascular: Rate and Rhythm: Normal rate and regular rhythm. Heart sounds: Murmur (diastolic murmur at aortic area) heard. No gallop. Pulmonary: Effort: No respiratory distress. Abdominal: General: There is no distension. Tenderness: There is no abdominal tenderness. Musculoskeletal: General: Normal range of motion. Cervical back: Normal range of motion. Right lower leg: No edema. Left lower leg: No edema. Skin: General: Skin is warm and dry. Neurological: Mental Status: He is alert and oriented to person, place, and time. Cardiac Tests: ECG: NSR (today) Last Echo: 11/2020 1. Left ventricle: There is mild concentric hypertrophy. Systolic function is normal by the biplane method of disks. The estimated ejection fraction is 64%. 2. Right ventricle: The cavity size is moderately dilated. Right ventricular systolic pressure is within the normal range. 3. Left atrium: The atrium is mildly dilated. 4. Right atrium: The atrium is mildly dilated. 5. Aortic valve: Trileaflet; mildly calcified leaflets. There is mild stenosis. There is mild-moderate, 1-2+ regurgitation. The mean systolic gradient is 13 mm Hg. The peak systolic gradient is 22 mm Hg. The valve area by the velocity-time integral method is 2.2 cm^2. The valve area index by the velocity-time integral method is 1 cm^2/m^2. 6. Aortic root: The aortic root is mildly dilated Last Echocardiogram 03/22/2022: Left Ventricle: Left ventricle is moderately dilated. LVIDd is 5.4 cm. LVIDs is 3.9 cm. Normal wall thickness. Normal left ventricular systolic function. EF by 2D Simpsons Biplane is 66%. Normal wall motion. Diastolic dysfunction present with increased LAP with normal LVEF. Elevated left ventricular filling pressure. E/A ratio is 1.74. Average E/e' ratio is 17.00. Right Ventricle: Right ventricle is mildly dilated. Normal systolic function. Aortic Valve: Thickening and calcification of the commisures (left and non),( non and right).. Moderate (2+) regurgitation with a posterolateral eccentrically directed jet. Prolapse of the left or right cusp is suspected. Vena contracta 5.0 mm Probably no more than mild stenosis of the aortic valve. Although AV mean gradient is 16 and AV peak gradient is 28 mmHg. AV area by continuity VTI is 1.9 cm2. The plainimetry area is 2.7 cm2. The peak and mean gradients are higher than the 2-D images and VTI valve area suggest, likely due to the increased stroke volume from the aortic regurgitation. Mitral Valve: Valve structure is normal. Mild annular calcification (anterior and posterior). Tricuspid Valve: Valve structure is normal. Trace regurgitation. Pulmonic Valve: Valve structure is normal. Mild (1+) regurgitation. Left Atrium: Left atrium is moderately dilated. Left atrium size is mildly increased (LA volume index 35-41 mL/m2). Right Atrium: Right atrium size is normal. Aorta: Normal sized annulus. Moderately dilated sinuses of Valsalva. Sinuses of Valsalva diameter is 4.9 cm. Moderately dilated ascending aorta. Ao ascending diameter is 4.1 cm. There is moderate effacement of the STJ. IVC/SVC: IVC diameter is dilated and decreases less than 50% during inspiration; therefore the estimated right atrial pressure is elevated (~15 mmHg). Echo 04/10/23: Left Ventricle: Left ventricle size is normal. Normal wall thickness. Normal left ventricular systolic function. EF by 2D Simpsons Biplane is 72%. Normal wall motion. Right Ventricle: Right ventricle is mildly dilated. Normal systolic function. Aortic Valve: Moderate (2+) regurgitation with a posterolateral eccentrically directed jet and may underestimate severity. Moderate stenosis of the aortic valve. AV mean gradient is 27 mmHg. AV area by continuity VTI is 1.4 cm2. Tricuspid Valve: Mildly elevated RVSP. RVSP is 46 mmHg. Aorta: Moderately dilated sinuses of Valsalva. Sinuses of Valsalva diameter is 4.9 cm. Mildly dilated ascending aorta. Ao ascending diameter is 4.2 cm. Last Echo 04/16/24: Left Ventricle: Not well visualized. Left ventricle is mildly dilated. Normal wall thickness. Normal left ventricular systolic function. EF by 2D Simpsons Biplane is 62%. Technical limitations preclude assessment of global longitudinal strain. Normal wall motion. Right Ventricle: Right ventricle size is normal. Normal systolic function. Aortic Valve: Moderately calcified cusps. Moderately severe (3+) regurgitation, technically difficult assessment (benjamin contracta is not well seen, LVOT jet ratio ~50%. No significant stenosis. Aorta: Dilated sinuses of Valsalva. Sinuses of Valsalva diameter is 4.6 cm. Mildly dilated ascending aorta. Ao ascending diameter is 4.0 cm. There is moderate effacement of the STJ. Technically difficult study. Consider CMR imaging for more accurate LV volumes and AR assessment. Assessment and Plan: Paroxysmal atrial fibrillation He had a PVI in June 2021 at [facility]. He is asymptomatic. -Continue metoprolol 50 mg BID and rivaroxaban 20 mg daily. Tolerating NOAC without any bleeding issues. 2. Aortic root aneurysm Sinus of Valsalva 4.6 cm per echo 04/16/24 (stable from 4.9 cm from echo 03/2022); ascending aorta 4.0 cm -Continue with beta-blockers and good BP control 3. Moderate-severe aortic regurgitation Moderate-severe aortic insufficiency per echo 04/16/24, LVEF is preserved at 62%. He is asymptomatic. We will plan on a repeat echocardiogram in November 2024 to see if stable regurgitation. If any symptoms then would consider a JONO versus a cardiac MRI Continue Lopressor 50 mg twice a day and enalapril 10 mg daily for optimal blood pressure control. RTC in 6 months documented in this encounter [facility] 06-07-2024 History of Present illness Narrative The patient, Edmond Lama, identity was verified by name and . Supervising provider for clinic visit: Dr. Minor Beasley Chief Complaint Patient presents with Blood Pressure Check Reason for visit: Elevated BP Reading at last visit Edmond Lama has validated current medications Patient states compliant with medications as written: Yes BP medication taken prior to this visit? Yes Are you having any symptoms? No Current Blood Pressure:127/62 Current Heart Rate:52 Did Blood Pressure need rechecked: no Second Blood Pressure Reading: Second Heart Rate: Assessment/Plan: Edmond was seen today for blood pressure check. Diagnoses and all orders for this visit: Primary hypertension normal Future Appointments Date Time Provider Department Center 06/07/2024 9:00 AM SCHEDULE, [facility] 06/26/2024 2:20 PM Ace Messina MD [facility] None 11/12/2024 8:20 AM Minor Beasley DO [facility] Cc'd provider blood pressure readings? Yes Blood pressure stable, no med changes necessary documented in this encounter [facility] 06-07-2024 History of Present illness Narrative The patient, Edmond Lama, identity was verified by name and . Supervising provider for clinic visit: Dr. Minor Beasley Chief Complaint Patient presents with Blood Pressure Check Reason for visit: Elevated BP Reading at last visit Edmond Lama has validated current medications Patient states compliant with medications as written: Yes BP medication taken prior to this visit? Yes Are you having any symptoms? No Current Blood Pressure:127/62 Current Heart Rate:52 Did Blood Pressure need rechecked: no Second Blood Pressure Reading: Second Heart Rate: Assessment/Plan: Edmond was seen today for blood pressure check. Diagnoses and all orders for this visit: Primary hypertension normal Future Appointments Date Time Provider Department Center 06/07/2024 9:00 AM SCHEDULE, [facility] 06/26/2024 2:20 PM Ace Messina MD [facility] None 11/12/2024 8:20 AM Minor Beasley DO [facility] Cc'd provider blood pressure readings? Yes Blood pressure stable, no med changes necessary Sent [employer] message documented in this encounter [facility] 05-27-2024 Telephone encounter Note Patient rescheduled for 06/07/24 at 9:00AM [facility] 05-27-2024 Miscellaneous Notes Patient rescheduled for 06/07/24 at 9:00AM Name of Caller: edmodn Contact Reason for Appointment: Pt requesting to be rescheduled for the following week for his nurse visit on 06/10. Please advise. Office Name: [facility]neliusmandi coronado Medication Refills need, if any: / Medication Name: / documented in this encounter [facility] 05-27-2024 Telephone encounter Note Name of Caller: edmond Contact Reason for Appointment: Pt requesting to be rescheduled for the following week for his nurse visit on 06/10. Please advise. Office Name: nicholas salazar mc Medication Refills need, if any: / Medication Name: / [facility] 05-13-2024 History of Present illness Narrative Images from the original note were not included. [facility] - [address] [facility] [id number] Visit type: Established Patient Reason for Visit: 6 Month Follow-up Assessment / Plan: Edmond was seen today for 6 month follow-up. Diagnoses and all orders for this visit: Primary hypertension (Primary) Comments: Increase Vasotec to 10 mg daily, continue metoprolol and BP check 4 weeks Gout, unspecified cause, unspecified chronicity, unspecified site Prostate cancer screening - PSA Total (Screening); Future - PSA Total (Screening) Polycystic kidney disease Viral URI Comments: Acute, improving, discussed red flags Aortic valve insufficiency, etiology of cardiac valve disease unspecified Comments: Moderately severe, follow-up with cardiology possible sleep study PAF (paroxysmal atrial fibrillation) (HCC) Comments: Stable on metoprolol and Xarelto Chronic anticoagulation History of renal transplant Comments: Stable, creatinine 1.2, goal BP less than 130 systolic? Follow-up with nephrology Other orders - enalapril (Vasotec) 10 MG tablet; Take 1 tablet (10 mg) by mouth daily for 90 doses. Subjective: Patient ID: Edmond Lama is a 64 y.o. male. HPI non-smoker with history of polycystic kidney disease and status post second renal transplant presents for overall checkup but having a mild rhinorrhea and cough. No fever or substantial sore throat. No purulent phlegm chest pain or shortness of breath. Symptoms are resolving. Recent nephrology lab is stable. Had echocardiogram recently has moderate severe aortic regurgitation but no impaired left ventricular function. On Xarelto for paroxysmal atrial fibs. Last EKG sinus rhythm Review of Systems denies palpitations PND orthopnea or change in mild leg edema. Denies excessive's daytime sedation or snoring. No family history of sleep apnea. No change in bowels. Colonoscopy due next year. No black or bloody stools. No constipation diarrhea. Rare nocturia. He is due for SHAYNA and PSA. No new arthralgias. No recent gout flareup. Of note he does not smoke or drink Allergies Allergen Reactions Statins Other Muscle weakness Back pain Nickel When he gets anant-red, inflamed Current Outpatient Medications on File Prior to Visit Medication Sig Dispense Refill famotidine (Pepcid) 20 MG tablet Take 1 tablet (20 mg) by mouth 2 times daily. 180 tablet 3 Lactobacillus (PROBIOTIC ACIDOPHILUS PO) Take by mouth daily. magnesium oxide (Mag-Ox) Take 400 mg by mouth in the morning and 400 mg in the evening. metoprolol tartrate (Lopressor) 50 MG tablet Take 1 tablet (50 mg) by mouth 2 times daily. 180 tablet 1 Multiple Vitamin (multivitamin) tablet Take 1 tablet by mouth daily. Multiple Vitamins-Minerals (PRESERVISION AREDS 2 PO) Take by mouth daily. mycophenolate (Cellcept) 500 MG tablet Take 500 mg by mouth 2 times daily. tacrolimus (Prograf) 0.5 MG capsule Take 1 mg by mouth 2 times daily. 1 mg and 1/2 at night Xarelto 20 MG tablet TAKE 1 TABLET BY MOUTH EVERY DAY WITH EVENING MEAL. 90 tablet 1 [DISCONTINUED] enalapril (Vasotec) 5 MG tablet Take 1 tablet (5 mg) by mouth daily. 90 tablet 1 No current facility-administered medications on file prior to visit. Patient Active Problem List Diagnosis Polycystic kidney disease RLS (restless legs syndrome) Gastroesophageal reflux disease without esophagitis PAF (paroxysmal atrial fibrillation) ([facility]) Hypertension History of renal transplant Dilatation of aortic sinus of Valsalva CRF (chronic renal failure) Aortic insufficiency Hyperlipidemia ESRD on dialysis (HCC) Class 1 obesity ADPKD (autosomal dominant polycystic kidney disease) Statin intolerance Diverticulosis Gout H/O colonoscopy with polypectomy BMI 36.0-36.9,adult Chronic anticoagulation Social History Tobacco Use Smoking status: Never Smokeless tobacco: Never Substance Use Topics Alcohol use: Never Past Surgical History: Procedure Laterality Date CARDIAC ABLATION P ROCEDURE (HISTORICAL) 06/2021 at [facility] for At Fib CHOLECYSTECTOMY 1999 COLONOSCOPY W/ POLYPECTOMY 2012 Dr Reis-small polyp COLONOSCOPY W/ POLYPECTOMY 08/2020 Dr Reis-small polyp-due 5-10 yrs HX AV GRAFT CREATION Left 10/09/2018 [facility] OTHER SURGICAL HISTORY exp lap for abd lymphocele drainage OTHER SURGICAL HISTORY 10/08/2015 Laparoscopic peritoneal dialysis catheter placement-Dr Arshad OTHER SURGICAL HISTORY 07/22/2018 Removal peritoneal dialysis catheter at [facility] TONSILLECTOMY 1965 TRANSPLANT, KIDNEY, OPEN 1996 [facility] TRANSPLANT, KIDNEY, OPEN 07/2019 [facility] UPPER GASTROINTESTINAL ENDOSCOPY 08/2020 Dr Reis-mild GERD VENTRAL HERNIA REPAIR 2014 Family History Problem Relation Name Age of Onset Cerebral aneurysm Mother at age 55 Diabetes Father Dementia Father at age 82 No Known Problems Sister Pilar No Known Problems Brother Arjun No Known Problems Brother Scot Other Maternal Grandmother age 80 Cancer Maternal Grandfather ? Type Other Paternal Grandmother in mid 70s Dementia Paternal Grandfather age 79 Objective: BP (!) 156/72 Pulse 60 Temp 36.2 C (97.2 F) (Temporal) Ht 5' 10 (1.778 m) Wt 243 lb 12.8 oz (111 kg) SpO2 98% BMI 34.98 kg/m Physical Exam blood pressure 154/72. Pulse in the 56 range. No JVD adenopathy or thyroid lesions. Clear oropharynx. Normal eardrums. Heart is regular with aortic murmur. No gallops or ectopy. Some transmission of the aortic valve to both carotids. Lungs are clear without rales wheezes or egophony. Abdomen obese nontender without pain hepatosplenomegaly or masses. No bruits or ascites. Femoral pedal pulses are adequate. Trace ankle edema is evident. documented in this encounter [facility] 05-13-2024 Instructions Minor Beasley DO - 05/13/2024 9:00 AM EDT Rech BP 4 wks documented in this encounter [facility] 05-09-2024 Telephone encounter Note I called and spoke to Edmond checking to see how is doing-he tells me he is feeling great-no chest pressure. We will have him keep f/up with Dr Messina in June, if any symptoms, please call and we can plan to arrange testing sooner. He was thankful for the call. [facility] 05-09-2024 Miscellaneous Notes I called and spoke to Edomnd checking to see how is doing-he tells me he is feeling great-no chest pressure. We will have him keep f/up with Dr Messina in June, if any symptoms, please call and we can plan to arrange testing sooner. He was thankful for the call. I called and LMOM asking patient to give me a call back to discuss if any further symptoms. If so, we will order testing. If not, we will have him keep f/up with Dr Messina in June. Left number for PW office. I called and spoke to Edmond; he was actually on a flight to [place] yesterday; he will be there through the weekend and return next week. He reports he is doing well; reports no recurrence of chest pressure or any other symptoms. He has been taking his Pepcid twice daily. I let him know we talked with Dr Grayson's office and he said it would be okay for contrast dye; just would need to give him a litter of IV Fluids prior to scan. I let him know I will discuss further testing with Regi; since he is on vacation, will plan to call him back next week with an update. He was thankful for the call. LM requesting a call back to discuss pt's symptoms and need for further testing. Dr. Armstrong secure chatted today and reports ok for MRI and if needing to use dye for CT recommends giving 1 liter of IVF prior to scan. JUAN Mcwilliams called back from Dr Grayson's office asking for more information; I explained about echocardiogram with aortic regurgitation and technically limited imaging and patient reports chest pressure; I relayed question from Regi, relaying if contrast for coronary CTA could be used and also, if gadolinium would be okay for cardiac MRI considering patient history of multiple renal transplants/renal issues? She reports she will review this further and talk with Dr Grayson and will get back to me, likely later today. Given callback number/best way to reach me today. I called and spoke to Dr Grayson's financial secretary; MORGAN is busy right now, but they will have her call back to further discuss patietn's situation/what types of dye can be used for cardiac testing. ----- Message from MICHAEL Perez CNP sent at 04/26/2024 8:24 AM EDT ----- Please call grocery sacker and see if would be ok to do these studies with dye. ----- Message ----- From: Ace Messina MD Sent: 04/25/2024 9:26 AM EDT To: MICHAEL Delarosa CNP I am thinking in terms of CAD related heart burn? Coronary CTA would be an option.. Would have to reach out to his grocery sacker if its ok to use contrast for coronary CTA as well as gadolinium for MRI. If they say it should be ok then we should probably go ahead and start with coronary CTA first. Thanks FS ----- Message ----- From: MICHAEL Delarosa CNP Sent: 04/24/2024 4:28 PM EDT To: Ace Messina MD See my note. I think this is GERD related. If not, do you want me to order an MRI? documented in this encounter [facility] 05-08-2024 Telephone encounter Note I called and LMOM asking patient to give me a call back to discuss if any further symptoms. If so, we will order testing. If not, we will have him keep f/up with Dr Messina in June. Left number for PW office. [facility] 05-08-2024 Miscellaneous Notes I called and LMOM asking patient to give me a call back to discuss if any further symptoms. If so, we will order testing. If not, we will have him keep f/up with Dr Messina in June. Left number for PW office. I called and spoke to Edmond; he was actually on a flight to [place] yesterday; he will be there through the weekend and return next week. He reports he is doing well; reports no recurrence of chest pressure or any other symptoms. He has been taking his Pepcid twice daily. I let him know we talked with Dr Grayson's office and he said it would be okay for contrast dye; just would need to give him a litter of IV Fluids prior to scan. I let him know I will discuss further testing with Regi; since he is on vacation, will plan to call him back next week with an update. He was thankful for the call. LM requesting a call back to discuss pt's symptoms and need for further testing. Dr. Armstrong secure chatted today and reports ok for MRI and if needing to use dye for CT recommends giving 1 liter of IVF prior to scan. JUAN Mcwilliams called back from Dr Grayson's office asking for more information; I explained about echocardiogram with aortic regurgitation and technically limited imaging and patient reports chest pressure; I relayed question from Regi, relaying if contrast for coronary CTA could be used and also, if gadolinium would be okay for cardiac MRI considering patient history of multiple renal transplants/renal issues? She reports she will review this further and talk with Dr Grayson and will get back to me, likely later today. Given callback number/best way to reach me today. I called and spoke to Dr Grayson's financial secretary; MA is busy right now, but they will have her call back to further discuss patietn's situation/what types of dye can be used for cardiac testing. ----- Message from MICHAEL Perez CNP sent at 04/26/2024 8:24 AM EDT ----- Please call grocery sacker and see if would be ok to do these studies with dye. ----- Message ----- From: Ace Messina MD Sent: 04/25/2024 9:26 AM EDT To: MICHAEL Delarosa CNP I am thinking in terms of CAD related heart burn? Coronary CTA would be an option.. Would have to reach out to his grocery sacker if its ok to use contrast for coronary CTA as well as gadolinium for MRI. If they say it should be ok then we should probably go ahead and start with coronary CTA first. Thanks FS ----- Message ----- From: MICHAEL Delarosa CNP Sent: 04/24/2024 4:28 PM EDT To: Ace Messina MD See my note. I think this is GERD related. If not, do you want me to order an MRI? documented in this encounter [facility] 05-01-2024 Telephone encounter Note I called and spoke to Emdond; he was actually on a flight to [place] yesterday; he will be there through the weekend and return next week. He reports he is doing well; reports no recurrence of chest pressure or any other symptoms. He has been taking his Pepcid twice daily. I let him know we talked with Dr Grayson's office and he said it would be okay for contrast dye; just would need to give him a litter of IV Fluids prior to scan. I let him know I will discuss further testing with Regi; since he is on vacation, will plan to call him back next week with an update. He was thankful for the call. [facility] 05-01-2024 Miscellaneous Notes I called and spoke to Edmond; he was actually on a flight to [place] yesterday; he will be there through the weekend and return next week. He reports he is doing well; reports no recurrence of chest pressure or any other symptoms. He has been taking his Pepcid twice daily. I let him know we talked with Dr Grayson's office and he said it would be okay for contrast dye; just would need to give him a litter of IV Fluids prior to scan. I let him know I will discuss further testing with Regi; since he is on vacation, will plan to call him back next week with an update. He was thankful for the call. LM requesting a call back to discuss pt's symptoms and need for further testing. Dr. Armstrong secure chatted today and reports ok for MRI and if needing to use dye for CT recommends giving 1 liter of IVF prior to scan. JUAN Mcwilliams called back from Dr Grayson's office asking for more information; I explained about echocardiogram with aortic regurgitation and technically limited imaging and patient reports chest pressure; I relayed question from Regi, relaying if contrast for coronary CTA could be used and also, if gadolinium would be okay for cardiac MRI considering patient history of multiple renal transplants/renal issues? She reports she will review this further and talk with Dr Grayson and will get back to me, likely later today. Given callback number/best way to reach me today. I called and spoke to Dr Grayson's financial secretary; MORGAN is busy right now, but they will have her call back to further discuss patietn's situation/what types of dye can be used for cardiac testing. ----- Message from MICHAEL Perez CNP sent at 04/26/2024 8:24 AM EDT ----- Please call grocery sacker and see if would be ok to do these studies with dye. ----- Message ----- From: Ace Messina MD Sent: 04/25/2024 9:26 AM EDT To: MICHAEL Delarosa CNP I am thinking in terms of CAD related heart burn? Coronary CTA would be an option.. Would have to reach out to his grocery sacker if its ok to use contrast for coronary CTA as well as gadolinium for MRI. If they say it should be ok then we should probably go ahead and start with coronary CTA first. Thanks FS ----- Message ----- From: MICHAEL Delarosa CNP Sent: 04/24/2024 4:28 PM EDT To: Ace Messina MD See my note. I think this is GERD related. If not, do you want me to order an MRI? documented in this encounter [email or web address] 04-30-2024 Telephone encounter Note LM requesting a call back to discuss pt's symptoms and need for further testing. [email or web address] 04-26-[address] Armstrong secure chatted today and reports ok for MRI and if needing to use dye for CT recommends giving 1 liter of IVF prior to scan. [email or web address] Work Phone: 04-26-2024 Telephone encounter Note JUAN Mcwilliams called back from Dr Grayson's office asking for more information; I explained about echocardiogram with aortic regurgitation and technically limited imaging and patient reports chest pressure; I relayed question from Regi, relaying if contrast for coronary CTA could be used and also, if gadolinium would be okay for cardiac MRI considering patient history of multiple renal transplants/renal issues? She reports she will review this further and talk with Dr Grayson and will get back to me, likely later today. Given callback number/best way to reach me today. [facility] 04-26-2024 Telephone encounter Note I called and spoke to Dr Grayson's financial secretary; MA is busy right now, but they will have her call back to further discuss amy's situation/what types of dye can be used for cardiac testing. [facility] 04-26-2024 Telephone encounter Note ----- Message from MICHAEL Perez CNP sent at 04/26/2024 8:24 AM EDT ----- Please call grocery sacker and see if would be ok to do these studies with dye. ----- Message ----- From: Ace Messina MD Sent: 04/25/2024 9:26 AM EDT To: MICHAEL Delarosa CNP I am thinking in terms of CAD related heart burn? Coronary CTA would be an option.. Would have to reach out to his grocery sacker if its ok to use contrast for coronary CTA as well as gadolinium for MRI. If they say it should be ok then we should probably go ahead and start with coronary CTA first. Thanks FS ----- Message ----- From: MICHAEL Delarosa CNP Sent: 04/24/2024 4:28 PM EDT To: Ace Messina MD See my note. I think this is GERD related. If not, do you want me to order an MRI? [facility] [employer] 04-24-2024 History of Present illness Narrative [facility] Cardiology Note Visit type: Established Chief Complaint: Chief Complaint Patient presents with Chest Pain History of Present Illness: Edmond Lama is a 64 y.o. 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 He has a history of aortic aneurysm and moderate aortic regurgitation. He is here for a routine follow-up. Was doing well when last seen by Dr. Messina back in December. Had a follow up echo that showed normal LV function. Aortic regurgitration is moderate-severe. No significant stenosis. Aorta is stable. Aortic root 4.6 cm, ascending aorta 4.0 cm. He comes in for an urgent scheduled visit and reports that for the past 4-6 weeks he has been getting chest pressure (left side). No radiation of symptoms. Feels like it goes down the left side and down into his rib cage. His reports that they exercise and does life some weights but doesn't overdo it. He walks on the treadmill, does a rowing machine. No symptoms when he does activity. No recent injuries. Denies palpitations/fluttering. No orthopnea. No syncope or dizziness or lightheadedness. Trace amount of edema in his lower extremities. No history of heart catheterization. I questioned him about having any gastric reflux symptoms. He reports that it might be reflux. His big triggers for reflux are tomato based items, ice cream, chocolate. His does report that he has been eating those most recently. He does report that sometimes he gets some fluid/reflux that comes up on him during the nighttime. Not able to lay on his left side at night due to should issues. Laying on his left side may help some issues with reflux symptoms. No reproducible chest discomfort on examination. EKG is normal and without any acute changes. No current complaints while in office today. Past Medical History: Past Medical History: Diagnosis Date Anticoagulant long-term use 06/2021 Xarelto Aortic insufficiency 11/06/2018 Mild Aortic stenosis 2023 Dr. Messina BMI 36.0-36.9,adult COVID-19 12/2019 CRF (chronic renal failure) 1996 polycystic kidney ds- transplant 2000 and 07/2019 Dilatation of aortic sinus of Valsalva 11/06/2018 Diverticulosis 2014 ESRD on dialysis ([facility]) 08/01/2017 LUE shunt- stopped 07/26 with second transplant Gastroesophageal reflux disease without esophagitis 10/28/201908/26 EGD per Smiley Liu H/O colonoscopy with polypectomy 08/2020 Dr. Elizabeth- due 5-10 yrs History of renal transplant 07/2019 and 2000 Hyperlipidemia 08/01/2017 statin intolerance- defers rx Hypertension 05/04/2015 PAF (paroxysmal atrial fibrillation) ([facility]) 10/28/2019 s/p ablation 06/27 at [facility] Polycystic kidney disease 1994 Prostate cancer screening 04/2023 Statin intolerance Past Surgical History Past Surgical History: Procedure Laterality Date CARDIAC ABLATION P ROCEDURE (HISTORICAL) 06/2021 at [facility] for At Fib CHOLECYSTECTOMY [address] Reis-small polyp COLONOSCOPY W/ POLYPECTOMY 08/2020 Dr Reis-small polyp-due 5-10 yrs HX AV GRAFT CREATION Left 10/09/2018 [facility] OTHER SURGICAL HISTORY exp lap for abd lymphocele drainage OTHER SURGICAL HISTORY 10/08/2015 Laparoscopic peritoneal dialysis catheter placement-Dr Arshad OTHER SURGICAL HISTORY 07/22/2018 Removal peritoneal dialysis catheter at [facility] TONSILLECTOMY 1965 TRANSPLANT, KIDNEY, OPEN 1996 [facility] TRANSPLANT, KIDNEY, OPEN 07/2019 [facility] UPPER GASTROINTESTINAL ENDOSCOPY 08/2020 Dr Reis-mild GERD VENTRAL HERNIA REPAIR 2013 Family History Family History Problem Relation Name Age of Onset Cerebral aneurysm Mother at age 55 Diabetes Father Dementia Father at age 82 No Known Problems Sister Pilar No Known Problems Brother Arjun No Known Problems Brother Scot Other Maternal Grandmother age 80 Cancer Maternal Grandfather Other Paternal Grandmother in mid 70s Dementia Paternal Grandfather age 79 Social History Social History Tobacco Use Smoking status: Never Smokeless tobacco: Never Vaping Use Vaping status: Never Used Substance Use Topics Alcohol use: Never Drug use: Never Comment: Caffiene: Rare Allergies: Allergies Allergen Reactions Statins Other Muscle weakness Back pain Nickel When he gets anant-red, inflamed Medications: Current Outpatient Medications: enalapril (Vasotec) 5 MG tablet, Take 1 tablet (5 mg) by mouth daily., Disp: 90 tablet, Rfl: 1 famotidine (Pepcid) 20 MG tablet, Take 1 tablet (20 mg) by mouth 2 times daily., Disp: 180 tablet, Rfl: 3 Lactobacillus (PROBIOTIC ACIDOPHILUS PO), Take by mouth daily., Disp: , Rfl: magnesium oxide (Mag-Ox), Take 400 mg by mouth in the morning and 400 mg in the evening., Disp: , Rfl: metoprolol tartrate (Lopressor) 50 MG tablet, Take 1 tablet (50 mg) by mouth 2 times daily., Disp: 180 tablet, Rfl: 1 Multiple Vitamin (multivitamin) tablet, Take 1 tablet by mouth daily., Disp: , Rfl: Multiple Vitamins-Minerals (PRESERVISION AREDS 2 PO), Take by mouth daily., Disp: , Rfl: mycophenolate (Cellcept) 500 MG tablet, Take 500 mg by mouth 2 times daily., Disp: , Rfl: tacrolimus (Prograf) 0.5 MG capsule, Take 1 mg by mouth 2 times daily. 1 mg and 1/2 at night, Disp: , Rfl: Xarelto 20 MG tablet, TAKE 1 TABLET BY MOUTH EVERY DAY WITH EVENING MEAL., Disp: 90 tablet, Rfl: 1 Review of Systems: Review of Systems Constitutional: Negative for activity change, chills, diaphoresis, fatigue and fever. HENT: Negative for nosebleeds and trouble swallowing. Eyes: Negative for discharge and visual disturbance. Respiratory: Negative for apnea, cough, chest tightness, shortness of breath and wheezing. Cardiovascular: Negative for chest pain, palpitations (occasionally) and leg swelling. Gastrointestinal: Negative for abdominal distention, abdominal pain, blood in stool, diarrhea, nausea and vomiting. Endocrine: Negative for cold intolerance and heat intolerance. Genitourinary: Negative for hematuria and urgency. Musculoskeletal: Negative for gait problem and myalgias. Skin: Negative for color change and rash. Neurological: Negative for dizziness, seizures, syncope, facial asymmetry, speech difficulty, weakness, light-headedness, numbness and headaches. Hematological: Does not bruise/bleed easily. Psychiatric/Behavioral: Negative for dysphoric mood and hallucinations. Physical Examination: Vitals: Vitals: 04/24/24 1424 BP: 136/72 BP Location: Right arm Patient Position: Sitting BP Cuff Size: Adult Pulse: 55 Weight: 245 lb (111 kg) Height: 5' 10 (1.778 m) Body mass index is 35.15 kg/m . Physical Exam Constitutional: Appearance: Normal appearance. HENT: Head: Normocephalic. Mouth/Throat: Pharynx: No oropharyngeal exudate. Eyes: General: No scleral icterus. Right eye: No discharge. Left eye: No discharge. Cardiovascular: Rate and Rhythm: Normal rate and regular rhythm. Heart sounds: Murmur heard. Diastolic murmur is present with a grade of 2/4. No gallop. Pulmonary: Effort: No respiratory distress. Abdominal: General: There is no distension. Tenderness: There is no abdominal tenderness. Musculoskeletal: General: Normal range of motion. Cervical back: Normal range of motion. Right lower leg: No edema. Left lower leg: No edema. Skin: General: Skin is warm and dry. Neurological: Mental Status: He is alert and oriented to person, place, and time. Cardiac Tests: EC04/24/2024. NSR. Echocardiogram: 04/16/2024 Left Ventricle: Not well visualized. Left ventricle is mildly dilated. Normal wall thickness. Normal left ventricular systolic function. EF by 2D Simpsons Biplane is 62%. Technical limitations preclude assessment of global longitudinal strain. Normal wall motion. Right Ventricle: Right ventricle size is normal. Normal systolic function. Aortic Valve: Moderately calcified cusps. Moderately severe (3+) regurgitation, technically difficult assessment (benjamin contracta is not well seen, LVOT jet ratio ~50%. No significant stenosis. Aorta: Dilated sinuses of Valsalva. Sinuses of Valsalva diameter is 4.6 cm. Mildly dilated ascending aorta. Ao ascending diameter is 4.0 cm. There is moderate effacement of the STJ. Technically difficult study. Consider CMR imaging for more accurate LV volumes and AR assessment. Echo: 11/2020 1. Left ventricle: There is mild concentric hypertrophy. Systolic function is normal by the biplane method of disks. The estimated ejection fraction is 64%. 2. Right ventricle: The cavity size is moderately dilated. Right ventricular systolic pressure is within the normal range. 3. Left atrium: The atrium is mildly dilated. 4. Right atrium: The atrium is mildly dilated. 5. Aortic valve: Trileaflet; mildly calcified leaflets. There is mild stenosis. There is mild-moderate, 1-2+ regurgitation. The mean systolic gradient is 13 mm Hg. The peak systolic gradient is 22 mm Hg. The valve area by the velocity-time integral method is 2.2 cm^2. The valve area index by the velocity-time integral method is 1 cm^2/m^2. 6. Aortic root: The aortic root is mildly dilated Last Echocardiogram 03/22/2022: Left Ventricle: Left ventricle is moderately dilated. LVIDd is 5.4 cm. LVIDs is 3.9 cm. Normal wall thickness. Normal left ventricular systolic function. EF by 2D Simpsons Biplane is 66%. Normal wall motion. Diastolic dysfunction present with increased LAP with normal LVEF. Elevated left ventricular filling pressure. E/A ratio is 1.74. Average E/e' ratio is 17.00. Right Ventricle: Right ventricle is mildly dilated. Normal systolic function. Aortic Valve: Thickening and calcification of the commisures (left and non),( non and right).. Moderate (2+) regurgitation with a posterolateral eccentrically directed jet. Prolapse of the left or right cusp is suspected. Vena contracta 5.0 mm Probably no more than mild stenosis of the aortic valve. Although AV mean gradient is 16 and AV peak gradient is 28 mmHg. AV area by continuity VTI is 1.9 cm2. The plainimetry area is 2.7 cm2. The peak and mean gradients are higher than the 2-D images and VTI valve area suggest, likely due to the increased stroke volume from the aortic regurgitation. Mitral Valve: Valve structure is normal. Mild annular calcification (anterior and posterior). Tricuspid Valve: Valve structure is normal. Trace regurgitation. Pulmonic Valve: Valve structure is normal. Mild (1+) regurgitation. Left Atrium: Left atrium is moderately dilated. Left atrium size is mildly increased (LA volume index 35-41 mL/m2). Right Atrium: Right atrium size is normal. Aorta: Normal sized annulus. Moderately dilated sinuses of Valsalva. Sinuses of Valsalva diameter is 4.9 cm. Moderately dilated ascending aorta. Ao ascending diameter is 4.1 cm. There is moderate effacement of the STJ. IVC/SVC: IVC diameter is dilated and decreases less than 50% during inspiration; therefore the estimated right atrial pressure is elevated (~15 mmHg). Last Echo 04/10/23: Left Ventricle: Left ventricle size is normal. Normal wall thickness. Normal left ventricular systolic function. EF by 2D Simpsons Biplane is 72%. Normal wall motion. Right Ventricle: Right ventricle is mildly dilated. Normal systolic function. Aortic Valve: Moderate (2+) regurgitation with a posterolateral eccentrically directed jet and may underestimate severity. Moderate stenosis of the aortic valve. AV mean gradient is 27 mmHg. AV area by continuity VTI is 1.4 cm2. Tricuspid Valve: Mildly elevated RVSP. RVSP is 46 mmHg. Aorta: Moderately dilated sinuses of Valsalva. Sinuses of Valsalva diameter is 4.9 cm. Mildly dilated ascending aorta. Ao ascending diameter is 4.2 cm. Assessment and Plan: Paroxysmal atrial fibrillation He had a PVI in June 2021 at [facility]. Currently in NSR. He is asymptomatic if he does flip into afib (sounds like he may have been in afib at his last office visit and then went back into normal rhythm) -would continue metoprolol 50 mg BID -would continue Xarelto 20 mg daily. -recent labs dated 04/03/2024 are wnl 2. Aortic root aneurysm Sinus of Valsalva 4.9 cm per echo 04/10/23 (stable at 4.9 cm from echo 03/2022) (stable per echo 04/2024) -continue metoprolol tartrate 50mg bid -continue Enalapril 5mg daily 3. Moderate aortic regurgitation Moderate to severe AR -Recommend good BP control -repeat echo 6 months 4. Chest pressure: His EKG today is normal and without any acute changes. His symptoms sound more GERD related to me. He is not in any distress. -advised to continue his pepcid twice a day. -advised to avoid triggers that cause his increase in GERD symptoms to see if he has improvement in his symptoms. -I'll discuss with Dr. Messina his moderate-severe AR and his current symptoms. He just had an echo. He is a renal transplant patient X2 and sees Dr. Armstrong at [facility]. Recent labs show his creatinine to be 1.2. Will discuss potential of MRI to reassess if his symptoms don't resolve with dietary changes. He has no exertional component to his symptoms. Only finding on physical examination is 2/6 murmur. Will return to clinic as planned in June with Dr. Messina. documented in this encounter [facility] 02-14-2024 Telephone encounter Note CBC and BMP at nephrology 09/26/23: Hematocrit (Bld) [Volume fraction] 49.8 % Normal 40-54 [facility] Comment on above: Performed By: #### L100.0500, L506.1000, L3380.1000, L500.3600, L509.1000, L3900.4000, L501.0900 #### [facility] [address] [place], [address] Hemoglobin (Bld) [Mass/Vol] 15.9 g/dL Normal 13.0-16.5 [facility] Comment on above: Performed By: #### L100.0500, L506.1000, L3380.1000, L500.3600, L509.1000, L3900.4000, L501.0900 #### [facility] [address] [place], [address] MCH (RBC) [Entitic mass] 28.4 pg Normal 27.0-32.0 [facility] Comment on above: Performed By: #### L100.0500, L506.1000, L3380.1000, L500.3600, L509.1000, L3900.4000, L501.0900 #### [facility] [address] [place], [address] MCHC (RBC) [Mass/Vol] 31.9 g/dL Low 32-36 [facility] Comment on above: Performed By: #### L100.0500, L506.1000, L3380.1000, L500.3600, L509.1000, L3900.4000, L501.0900 #### [facility] [address] [place], [address] MCV (RBC) [Entitic vol] 88.9 fL Normal 80-94 [facility] Comment on above: Performed By: #### L100.0500, L506.1000, L3380.1000, L500.3600, L509.1000, L3900.4000, L501.0900 #### [facility] [address] [place], [address] Platelet mean volume (Bld) [Entitic vol] 10.2 fL Normal 6.2-12.0 [facility] Comment on above: Performed By: #### L100.0500, L506.1000, L3380.1000, L500.3600, L509.1000, L3900.4000, L501.0900 #### [facility] [address] [place], [address] Platelets (Bld) [#/Vol] 200 10*3/uL Normal 150-450 [facility] Comment on above: Performed By: #### L100.0500, L506.1000, L3380.1000, L500.3600, L509.1000, L3900.4000, L501.0900 #### [facility] [address] [place], [address] RBC (Bld) [#/Vol] 5.60 10*6/uL Normal 4.6-6.2 [facility] Comment on above: Performed By: #### L100.0500, L506.1000, L3380.1000, L500.3600, L509.1000, L3900.4000, L501.0900 #### [facility] [address] [place], [address] RDW SD 40.1 fl Normal 35.1-43.9 [facility] Comment on above: Performed By: #### L100.0500, L506.1000, L3380.1000, L500.3600, L509.1000, L3900.4000, L501.0900 #### [facility] [address] [place], [address] WBC (Bld) [#/Vol] 6.6 10*3/uL Normal 4.4-11.0 [facility] Comment on above: Performed By: #### L100.0500, L506.1000, L3380.1000, L500.3600, L509.1000, L3900.4000, L501.0900 #### [facility] [address] [place], [address] PTHIN on 09-26-2023 PTH 214.1 pg/mL High 18.4-80.1 [facility] Comment on above: Performed By: #### L100.0500, L506.1000, L3380.1000, L500.3600, L509.1000, L3900.4000, L501.0900 #### [facility] [address] [place], [address] Protein+Creatinine Ratio,Urine on 09-26-2023 PROT:CRE RATIO 161 mg/g CRE Normal 0-200 [facility] Comment on above: Performed By: #### L100.0500, L506.1000, L3380.1000, L500.3600, L509.1000, L3900.4000, L501.0900 #### [facility] [address] [place], [address] Protein (U) [Mass/Vol] 17.9 mg/dL High <11.9 [facility] Comment on above: Performed By: #### L100.0500, L506.1000, L3380.1000, L500.3600, L509.1000, L3900.4000, L501.0900 #### [facility] [address] [place], [address] UR CREAT 111.00 mg/dL Normal NO RANGE EST. [facility] Comment on above: Performed By: #### L100.0500, L506.1000, L3380.1000, L500.3600, L509.1000, L3900.4000, L501.0900 #### [facility] [address] [place], [address] Renal Profile on 09-26-2023 Albumin [Mass/Vol] 3.5 g/dL Normal 3.2-5.0 [facility] Comment on above: Performed By: ## L100.0500, L506.1000, L3380.1000, L500.3600, L509.1000, L3900.4000, L501.0900 #### [facility] [address] [place], [address] BUN/CRE 17.3 RATIO Normal 10-20 [facility] Comment on above: Performed By: ## L100.0500, L506.1000, L3380.1000, L500.3600, L509.1000, L3900.4000, L501.0900 ## [facility] [address] [place], [address] CA,Total 10.0 mg/dL Normal 8.5-10.1 [facility] Comment on above: Performed By: ## L100.0500, L506.1000, L3380.1000, L500.3600, L509.1000, L3900.4000, L501.0900 ## [facility] [address] [place], [address] Chloride [Moles/Vol] 110 mmol/L High 98-107 [facility] Comment on above: Performed By: ## L100.0500, L506.1000, L3380.1000, L500.3600, L509.1000, L3900.4000, L501.0900 ## [facility] [address] [place], [address] CO2 [Moles/Vol] 26.0 mmol/L Normal 21.0-32.0 [facility] Comment on above: Performed By: ## L100.0500, L506.1000, L3380.1000, L500.3600, L509.1000, L3900.4000, L501.0900 ## [facility] [address] [place], [address] Creatinine [Mass/Vol] 1.10 mg/dL Normal 0.70-1.30 [facility] Comment on above: Result Comment: The validity of the calculated GFR GFRAA in patients over 70 years has not been determined. Clinical correlation is essential. Performed By:## L100.0500, L506.1000, L3380.1000, L500.3600, L509.1000, L3900.4000, L501.0900 ## [facility] [address] [place], [address] EST GFR - AA 87 mL/min Normal >60 [facility] Comment on above: Result Comment: GFR Calc Performed By: ## L100.0500, L506.1000, L3380.1000, L500.3600, L509.1000, L3900.4000, L501.0900 ## [facility] [address] [place], [address] GFR/1.73 sq M.predicted among non-blacks MDRD (S/P/Bld) [Vol rate/Area] Normal >60 [facility] Comment on above: Result Comment: Non- GFR Calc Performed By: ## L100.0500, L506.1000, L3380.1000, L500.3600, L509.1000, L3900.4000, L501.0900 ## [facility] [address] [place], [address] Glucose [Mass/Vol] 110 mg/dL High 74-106 [facility] Comment on above: Result Comment: Fasting Glucose result from 100 to 125 mg/dL suggests IMPAIRED HOMEOSTASIS per A.D.A. criteria. Performed By: #### L100.0500, L506.1000, L3380.1000, L500.3600, L509.1000, L3900.4000, L501.0900 #### [facility] [address] [place], [address] Phosphate [Mass/Vol] 2.4 mg/dL Low 2.5-4.9 [facility] Comment on above: Performed By: ## L100.0500, L506.1000, L3380.1000, L500.3600, L509.1000, L3900.4000, L501.0900 ## [facility] [address] [place], [address] Potassium [Moles/Vol] 4.1 mmol/L Normal 3.5-5.1 [facility] Comment on above: Performed By: ## L100.0500, L506.1000, L3380.1000, L500.3600, L509.1000, L3900.4000, L501.0900 ## [facility] [address] [place], [address] Sodium [Moles/Vol] 139 mmol/L Normal 136-145 [facility] Comment on above: Performed By: ## L100.0500, L506.1000, L3380.1000, L500.3600, L509.1000, L3900.4000, L501.0900## [facility] [address] [place], [address] Urea nitrogen [Mass/Vol] 19 mg/dL [facility] 02-14-2024 Miscellaneous Notes CBC and BMP at nephrology 09/26/23: Hematocrit (Bld) [Volume fraction] 49.8 % Normal 40-54 [facility] Comment on above: Performed By: #### L100.0500, L506.1000, L3380.1000, L500.3600, L509.1000, L3900.4000, L501.0900 #### [facility] [address] [place], [address] Hemoglobin (Bld) [Mass/Vol] 15.9 g/dL Normal 13.0-16.5 [facility] Comment on above: Performed By: #### L100.0500, L506.1000, L3380.1000, L500.3600, L509.1000, L3900.4000, L501.0900 #### [facility] [address] [place], [address] MCH (RBC) [Entitic mass] 28.4 pg Normal 27.0-32.0 [facility] Comment on above: Performed By: #### L100.0500, L506.1000, L3380.1000, L500.3600, L509.1000, L3900.4000, L501.0900 #### [facility] [address] [place], [address] MCHC (RBC) [Mass/Vol] 31.9 g/dL Low 32-36 [facility] Comment on above: Performed By: #### L100.0500, L506.1000, L3380.1000, L500.3600, L509.1000, L3900.4000, L501.0900 #### [facility] [address] [place], [address] MCV (RBC) [Entitic vol] 88.9 fL Normal 80-94 [facility] Comment on above: Performed By: #### L100.0500, L506.1000, L3380.1000, L500.3600, L509.1000, L3900.4000, L501.0900 #### [facility] [address] [place], [address] Platelet mean volume (Bld) [Entitic vol] 10.2 fL Normal 6.2-12.0 [facility] Comment on above: Performed By: #### L100.0500, L506.1000, L3380.1000, L500.3600, L509.1000, L3900.4000, L501.0900 #### [facility] [address] [place], [address] Platelets (Bld) [#/Vol] 200 10*3/uL Normal 150-450 [facility] Comment on above: Performed By: #### L100.0500, L506.1000, L3380.1000, L500.3600, L509.1000, L3900.4000, L501.0900 #### [facility] [address] [place], [address] RBC (Bld) [#/Vol] 5.60 10*6/uL Normal 4.6-6.2 [facility] Comment on above: Performed By: #### L100.0500, L506.1000, L3380.1000, L500.3600, L509.1000, L3900.4000, L501.0900 #### [facility] [address] [place], [address] RDW SD 40.1 fl Normal 35.1-43.9 [facility] Comment on above: Performed By: #### L100.0500, L506.1000, L3380.1000, L500.3600, L509.1000, L3900.4000, L501.0900 #### [facility] [address] [place], [address] WBC (Bld) [#/Vol] 6.6 10*3/uL Normal 4.4-11.0 [facility] Comment on above: Performed By: #### L100.0500, L506.1000, L3380.1000, L500.3600, L509.1000, L3900.4000, L501.0900 #### [facility] [address] [place], [address] PTHIN on 09-26-2023 PTH 214.1 pg/mL High 18.4-80.1 [facility] Comment on above: Performed By: #### L100.0500, L506.1000, L3380.1000, L500.3600, L509.1000, L3900.4000, L501.0900 #### [facility] [address] [place], [address] Protein+Creatinine Ratio,Urine on 09-26-2023 PROT:CRE RATIO 161 mg/g CRE Normal 0-200 [facility] Comment on above: Performed By: #### L100.0500, L506.1000, L3380.1000, L500.3600, L509.1000, L3900.4000, L501.0900 #### [facility] [address] [place], [address] Protein (U) [Mass/Vol] 17.9 mg/dL High <11.9 [facility] Comment on above: Performed By: #### L100.0500, L506.1000, L3380.1000, L500.3600, L509.1000, L3900.4000, L501.0900 #### [facility] [address] [place], [address] UR CREAT 111.00 mg/dL Normal NO RANGE EST. [facility] Comment on above: Performed By: #### L100.0500, L506.1000, L3380.1000, L500.3600, L509.1000, L3900.4000, L501.0900 #### [facility] [address] [place], [address] Renal Profile on 09-26-2023 Albumin [Mass/Vol] 3.5 g/dL Normal 3.2-5.0 [facility] Comment on above: Performed By: ## L100.0500, L506.1000, L3380.1000, L500.3600, L509.1000, L3900.4000, L501.0900 #### [facility] [address] [place], [address] BUN/CRE 17.3 RATIO Normal 10-20 [facility] Comment on above: Performed By: ## L100.0500, L506.1000, L3380.1000, L500.3600, L509.1000, L3900.4000, L501.0900 ## [facility] [address] [place], [address] CA,Total 10.0 mg/dL Normal 8.5-10.1 [facility] Comment on above: Performed By: ## L100.0500, L506.1000, L3380.1000, L500.3600, L509.1000, L3900.4000, L501.0900 ## [facility] [address] [place], [address] Chloride [Moles/Vol] 110 mmol/L High 98-107 [facility] Comment on above: Performed By: ## L100.0500, L506.1000, L3380.1000, L500.3600, L509.1000, L3900.4000, L501.0900 ## [facility] [address] [place], [address] CO2 [Moles/Vol] 26.0 mmol/L Normal 21.0-32.0 [facility] Comment on above: Performed By: ## L100.0500, L506.1000, L3380.1000, L500.3600, L509.1000, L3900.4000, L501.0900 ## [facility] [address] [place], [address] Creatinine [Mass/Vol] 1.10 mg/dL Normal 0.70-1.30 [facility] Comment on above: Result Comment: The validity of the calculated GFR GFRAA in patients over 70 years has not been determined. Clinical correlation is essential. Performed By:## L100.0500, L506.1000, L3380.1000, L500.3600, L509.1000, L3900.4000, L501.0900 ## [facility] [address] [place], [address] EST GFR - AA 87 mL/min Normal >60 [facility] Comment on above: Result Comment: GFR Calc Performed By: ## L100.0500, L506.1000, L3380.1000, L500.3600, L509.1000, L3900.4000, L501.0900 ## [facility] [address] [place], [address] GFR/1.73 sq M.predicted among non-blacks MDRD (S/P/Bld) [Vol rate/Area] Normal >60 [facility] Comment on above: Result Comment: Non- GFR Calc Performed By: ## L100.0500, L506.1000, L3380.1000, L500.3600, L509.1000, L3900.4000, L501.0900 ## [facility] [address] [place], [address] Glucose [Mass/Vol] 110 mg/dL High 74-106 [facility] Comment on above: Result Comment: Fasting Glucose result from 100 to 125 mg/dL suggests IMPAIRED HOMEOSTASIS per A.D.A. criteria. Performed By: #### L100.0500, L506.1000, L3380.1000, L500.3600, L509.1000, L3900.4000, L501.0900 #### [facility] [address] [place], [address] Phosphate [Mass/Vol] 2.4 mg/dL Low 2.5-4.9 [facility] Comment on above: Performed By: ## L100.0500, L506.1000, L3380.1000, L500.3600, L509.1000, L3900.4000, L501.0900 ## [facility] [address] [place], [address] Potassium [Moles/Vol] 4.1 mmol/L Normal 3.5-5.1 [facility] Comment on above: Performed By: ## L100.0500, L506.1000, L3380.1000, L500.3600, L509.1000, L3900.4000, L501.0900 ## [facility] [address] [place], [address] Sodium [Moles/Vol] 139 mmol/L Normal 136-145 [facility] Comment on above: Performed By: ## L100.0500, L506.1000, L3380.1000, L500.3600, L509.1000, L3900.4000, L501.0900## [facility] [address] [place], [address] Urea nitrogen [Mass/Vol] 19 mg/dL documented in this encounter [facility] 02-01-2024 Telephone encounter Note Recent Visits Date Type Provider Dept 11/27/23 Office Visit Minor Beasley DO [facility] 04/06/23 Office Visit Minor Beasley DO [facility] Showing recent visits within past 365 days and meeting all other requirements Future Appointments No visits were found meeting these conditions. Showing future appointments within next 90 days and meeting all other requirements Requested Prescriptions Pending Prescriptions Disp Refills metoprolol tartrate (Lopressor) 50 MG tablet [Pharmacy Med Name: METOPROLOL TARTRATE TABS 50MG] 180 tablet 1 Sig: Take 1 tablet (50 mg) by mouth 2 times daily. Provider: Minor Beasley DO Verified pharmacy: yes Verified day(s) supplied: yes Verified refill(s) needed (previous prescription showing no refills in chart): Yes Have you received any controlled medications from any other provider? N/A Overdue for visit: No If yes - patient scheduled? N/A Most recent labs completed in chart? N/A None [facility] 02-01-2024 Miscellaneous Notes Recent Visits Date Type Provider Dept 11/27/23 Office Visit Minor Beasley DO [facility] 04/06/23 Office Visit Minor Beasley DO [facility] Showing recent visits within past 365 days and meeting all other requirements Future Appointments No visits were found meeting these conditions. Showing future appointments within next 90 days and meeting all other requirements Requested Prescriptions Pending Prescriptions Disp Refills metoprolol tartrate (Lopressor) 50 MG tablet [Pharmacy Med Name: METOPROLOL TARTRATE TABS 50MG] 180 tablet 1 Sig: Take 1 tablet (50 mg) by mouth 2 times daily. Provider: Minor Beasley DO Verified pharmacy: yes Verified day(s) supplied: yes Verified refill(s) needed (previous prescription showing no refills in chart): Yes Have you received any controlled medications from any other provider? N/A Overdue for visit: No If yes - patient scheduled? N/A Most recent labs completed in chart? N/A None documented in this encounter [facility] 01-05-2024 Telephone encounter Note Recent Visits Date Type Provider Dept 11/27/23 Office Visit Minor Beasley DO [facility] 04/06/23 Office Visit Minor Beasley DO [facility] Showing recent visits within past 365 days and meeting all other requirements Future Appointments No visits were found meeting these conditions. Showing future appointments within next 90 days and meeting all other requirements Requested Prescriptions Pending Prescriptions Disp Refills famotidine (Pepcid) 20 MG tablet [Pharmacy Med Name: FAMOTIDINE TABS 20MG] 180 tablet 1 Sig: Take 1 tablet (20 mg) by mouth 2 times daily. Provider: Minor Beasley DO Verified pharmacy: yes Verified day(s) supplied: yes Verified refill(s) needed (previous prescription showing no refills in chart): Yes Have you received any controlled medications from any other provider? N/A Overdue for visit: No If yes - patient scheduled? N/A Most recent labs completed in chart? No None [facility] 01-05-2024 Miscellaneous Notes Recent Visits Date Type Provider Dept 11/27/23 Office Visit Minor Beasley DO [facility] 04/06/23 Office Visit Minor Beasley DO [facility] Showing recent visits within past 365 days and meeting all other requirements Future Appointments No visits were found meeting these conditions. Showing future appointments within next 90 days and meeting all other requirements Requested Prescriptions Pending Prescriptions Disp Refills famotidine (Pepcid) 20 MG tablet [Pharmacy Med Name: FAMOTIDINE TABS 20MG] 180 tablet 1 Sig: Take 1 tablet (20 mg) by mouth 2 times daily. Provider: Minor Beasley DO Verified pharmacy: yes Verified day(s) supplied: yes Verified refill(s) needed (previous prescription showing no refills in chart): Yes Have you received any controlled medications from any other provider? N/A Overdue for visit: No If yes - patient scheduled? N/A Most recent labs completed in chart? No None documented in this encounter [facility] 12-25-2023 History of Present illness Narrative [facility] Cardiology Note Visit type: New Chief Complaint: Chief Complaint Patient presents with 1 Year Follow-up Atrial Fibrillation History of Present Illness: Edmond Lama is a 63 y.o. 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 He has a history of aortic aneurysm and moderate aortic regurgitation. He is here for a routine follow-up. He continues to do well. He denies chest pain, shortness of breath, orthopnea or PND. No syncope or presyncope. No falls. No bleeding issues. Past Medical History: Past Medical History: Diagnosis Date Anticoagulant long-term use 06/2021 Xarelto Aortic insufficiency 11/06/2018 Mild Aortic stenosis 2023 Dr. 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 Elizabeth- due 5-10 yrs History of renal transplant 07/2019 and 2001 Hyperlipidemia 08/01/2017 statin intolerance- defers rx Hypertension 05/04/2015 PAF (paroxysmal atrial fibrillation) (HCC) 10/28/2019 s/p ablation 06/27 at [facility] Polycystic kidney disease 1994 Prostate cancer screening 04/2023 Statin intolerance Past Surgical History Past Surgical History: Procedure Laterality Date CARDIAC ABLATION P ROCEDURE (HISTORICAL) 06/2021 at [facility] for At Fib CHOLECYSTECTOMY [address] Reis-small polyp COLONOSCOPY W/ POLYPECTOMY 08/2020 Dr Reis-small polyp-due 5-10 yrs HX AV GRAFT CREATION Left 10/09/2018 [place] OTHER SURGICAL HISTORY exp lap for abd lymphocele drainage OTHER SURGICAL HISTORY 10/08/2015 Laparoscopic peritoneal dialysis catheter placement-Dr Arshad OTHER SURGICAL HISTORY 07/22/2018 Removal peritoneal dialysis catheter at [facility] TONSILLECTOMY 1965 TRANSPLANT, KIDNEY, OPEN 1996 [facility] TRANSPLANT, KIDNEY, OPEN 07/2019 [facility] UPPER GASTROINTESTINAL ENDOSCOPY 08/2020 Dr Reis-mild GERD VENTRAL HERNIA REPAIR 2014 Family History Family History Problem Relation Name Age of Onset Cerebral aneurysm Mother at age 55 Diabetes Father Dementia Father at age 82 No Known Problems Sister Pilar No Known Problems Brother Arjun No Known Problems Brother Scot Other Maternal Grandmother age 80 Cancer Maternal Grandfather Other Paternal Grandmother in mid 70s Dementia Paternal Grandfather age 79 Social History Social History Tobacco Use Smoking status: Never Smokeless tobacco: Never Vaping Use Vaping status: Never Used Substance Use Topics Alcohol use: Never Drug use: Never Comment: Caffiene: Rare Allergies: Allergies Allergen Reactions Statins Other Muscle weakness Back pain Nickel When he gets anant-red, inflamed Medications: Current Outpatient Medications: enalapril (Vasotec) 5 MG tablet, Take 1 tablet (5 mg) by mouth daily., Disp: 90 tablet, Rfl: 1 famotidine (Pepcid) 20 MG tablet, Take 1 tablet (20 mg) by mouth 2 times daily., Disp: 180 tablet, Rfl: 1 Lactobacillus (PROBIOTIC ACIDOPHILUS PO), Take by mouth daily., Disp: , Rfl: magnesium oxide (Mag-Ox), Take 400 mg by mouth in the morning and 400 mg in the evening., Disp: , Rfl: metoprolol tartrate (Lopressor) 50 MG tablet, Take 1 tablet (50 mg) by mouth 2 times daily., Disp: 180 tablet, Rfl: 1 Multiple Vitamin (multivitamin) tablet, Take 1 tablet by mouth daily., Disp: , Rfl: Multiple Vitamins-Minerals (PRESERVISION AREDS 2 PO), Take by mouth daily., Disp: , Rfl: mycophenolate (Myfortic) 360 MG EC tablet, Take 360 mg by mouth in the morning and 360 mg before bedtime., Disp: , Rfl: rivaroxaban (Xarelto) 20 MG tablet, Take 1 tablet (20 mg) by mouth with evening meal. Take with food., Disp: 90 tablet, Rfl: 3 tacrolimus (Prograf) 0.5 MG capsule, Take 1 mg by mouth 2 times daily. 1 mg and 1/2 at night, Disp: , Rfl: Review of Systems: Review of Systems Constitutional: Negative for activity change, chills, diaphoresis, fatigue and fever. HENT: Negative for nosebleeds and trouble swallowing. Eyes: Negative for discharge and visual disturbance. Respiratory: Negative for apnea, cough, chest tightness, shortness of breath and wheezing. Cardiovascular: Negative for chest pain, palpitations (occasionally) and leg swelling. Gastrointestinal: Negative for abdominal distention, abdominal pain, blood in stool, diarrhea, nausea and vomiting. Endocrine: Negative for cold intolerance and heat intolerance. Genitourinary: Negative for hematuria and urgency. Musculoskeletal: Negative for gait problem and myalgias. Skin: Negative for color change and rash. Neurological: Negative for dizziness, seizures, syncope, facial asymmetry, speech difficulty, weakness, light-headedness, numbness and headaches. Hematological: Does not bruise/bleed easily. Psychiatric/Behavioral: Negative for dysphoric mood and hallucinations. Physical Examination: Vitals: Vitals: 12/25/23 1322 BP: 110/70 BP Location: Right arm Patient Position: Sitting BP Cuff Size: Large adult Pulse: 83 SpO2: 100% Weight: 240 lb 3.2 oz (109 kg) Height: 5' 10 (1.778 m) Body mass index is 34.47 kg/m . Physical Exam Constitutional: Appearance: Normal appearance. HENT: Head: Normocephalic. Mouth/Throat: Pharynx: No oropharyngeal exudate. Eyes: General: No scleral icterus. Right eye: No discharge. Left eye: No discharge. Cardiovascular: Rate and Rhythm: Normal rate and regular rhythm. Heart sounds: Murmur heard. Diastolic murmur is present with a grade of 2/4. No gallop. Pulmonary: Effort: No respiratory distress. Abdominal: General: There is no distension. Tenderness: There is no abdominal tenderness. Musculoskeletal: General: Normal range of motion. Cervical back: Normal range of motion. Right lower leg: No edema. Left lower leg: No edema. Skin: General: Skin is warm and dry. Neurological: Mental Status: He is alert and oriented to person, place, and time. Cardiac Tests: ECG: NSR (today) Last Echo: 11/2020 1. Left ventricle: There is mild concentric hypertrophy. Systolic function is normal by the biplane method of disks. The estimated ejection fraction is 64%. 2. Right ventricle: The cavity size is moderately dilated. Right ventricular systolic pressure is within the normal range. 3. Left atrium: The atrium is mildly dilated. 4. Right atrium: The atrium is mildly dilated. 5. Aortic valve: Trileaflet; mildly calcified leaflets. There is mild stenosis. There is mild-moderate, 1-2+ regurgitation. The mean systolic gradient is 13 mm Hg. The peak systolic gradient is 22 mm Hg. The valve area by the velocity-time integral method is 2.2 cm^2. The valve area index by the velocity-time integral method is 1 cm^2/m^2. 6. Aortic root: The aortic root is mildly dilated Last Echocardiogram 03/22/2022: Left Ventricle: Left ventricle is moderately dilated. LVIDd is 5.4 cm. LVIDs is 3.9 cm. Normal wall thickness. Normal left ventricular systolic function. EF by 2D Simpsons Biplane is 66%. Normal wall motion. Diastolic dysfunction present with increased LAP with normal LVEF. Elevated left ventricular filling pressure. E/A ratio is 1.74. Average E/e' ratio is 17.00. Right Ventricle: Right ventricle is mildly dilated. Normal systolic function. Aortic Valve: Thickening and calcification of the commisures (left and non),( non and right).. Moderate (2+) regurgitation with a posterolateral eccentrically directed jet. Prolapse of the left or right cusp is suspected. Vena contracta 5.0 mm Probably no more than mild stenosis of the aortic valve. Although AV mean gradient is 16 and AV peak gradient is 28 mmHg. AV area by continuity VTI is 1.9 cm2. The plainimetry area is 2.7 cm2. The peak and mean gradients are higher than the 2-D images and VTI valve area suggest, likely due to the increased stroke volume from the aortic regurgitation. Mitral Valve: Valve structure is normal. Mild annular calcification (anterior and posterior). Tricuspid Valve: Valve structure is normal. Trace regurgitation. Pulmonic Valve: Valve structure is normal. Mild (1+) regurgitation. Left Atrium: Left atrium is moderately dilated. Left atrium size is mildly increased (LA volume index 35-41 mL/m2). Right Atrium: Right atrium size is normal. Aorta: Normal sized annulus. Moderately dilated sinuses of Valsalva. Sinuses of Valsalva diameter is 4.9 cm. Moderately dilated ascending aorta. Ao ascending diameter is 4.1 cm. There is moderate effacement of the STJ. IVC/SVC: IVC diameter is dilated and decreases less than 50% during inspiration; therefore the estimated right atrial pressure is elevated (~15 mmHg). Last Echo 04/10/23: Left Ventricle: Left ventricle size is normal. Normal wall thickness. Normal left ventricular systolic function. EF by 2D Simpsons Biplane is 72%. Normal wall motion. Right Ventricle: Right ventricle is mildly dilated. Normal systolic function. Aortic Valve: Moderate (2+) regurgitation with a posterolateral eccentrically directed jet and may underestimate severity. Moderate stenosis of the aortic valve. AV mean gradient is 27 mmHg. AV area by continuity VTI is 1.4 cm2. Tricuspid Valve: Mildly elevated RVSP. RVSP is 46 mmHg. Aorta: Moderately dilated sinuses of Valsalva. Sinuses of Valsalva diameter is 4.9 cm. Mildly dilated ascending aorta. Ao ascending diameter is 4.2 cm. Assessment and Plan: Paroxysmal atrial fibrillation He had a PVI in June 2021 at [facility]. On EKG today it seems like he had a short run of afib and then flipped to sinus bradycardia with pac He is asymptomatic , continue metoprolol 50 mg BID and rivaroxaban 20 mg daily. Tolerating NOAC without any bleeding issues. 2. Aortic root aneurysm Sinus of Valsalva 4.9 cm per echo 04/10/23 (stable at 4.9 cm from echo 03/2022) -Continue with beta-blockers and good BP control Repeat echo 04/2024 3. Moderate aortic regurgitation Moderate aortic stenosis and moderate aortic insuffiencey per echo 04/10/23 Asymptomatic. Echo with normal LVEF of 72%. -Recommend good BP control Repeat echo RTC in 6 months documented in this encounter [facility] 12-06-2023 Telephone encounter Note RX loaded Next ov 05/13/24 [facility] 12-06-2023 Miscellaneous Notes RX loaded Next ov 05/13/24 Medication name: enalapril (Vasotec) 5 MG tablet [[id number]] Medication dosage: 5 mg (Miligrams Monthly quantity needed: 30 How many day supply requestin year Medication route: oral (PO) Medication administration time(s): daily If taking medication PRN, reason for taking medication: N/A If this is a controlled substance do you receive this or any other controlled medication from any other doctor or facility: No Ordering provider: Dr. Beasley Date of last office visit: 11.27.23 Date of next office visit: 05.13.24 Date of last refill: (see medication tab): 06.07.23 Updated/Validated preferred pharmacy: Yes [facility] - [address] [address] Patient instructed to contact the pharmacy prior to picking up the medication: N/A documented in this encounter [facility] 12-06-2023 Telephone encounter Note Medication name: enalapril (Vasotec) 5 MG tablet [[id number]] Medication dosage: 5 mg (Miligrams Monthly quantity needed: 30 How many day supply requestin year Medication route: oral (PO) Medication administration time(s): daily If taking medication PRN, reason for taking medication: N/A If this is a controlled substance do you receive this or any other controlled medication from any other doctor or facility: No Ordering provider: Dr. Beasley Date of last office visit: 11.27.23 Date of next office visit: 05.13.24 Date of last refill: (see medication tab): 06.07.23 Updated/Validated preferred pharmacy: Yes [facility] - [address] [address] Patient instructed to contact the pharmacy prior to picking up the medication: N/A [facility] 07-14-2023 Telephone encounter Note Rx has been sent. [facility] 07-14-2023 Miscellaneous Notes Rx has been sent. Edmond called asking the status of the script being send to the pharm. Please send to the pharm [facility] - [address] Medication name: metoprolol tartrate (Lopressor) 50 MG tablet Medication dosage: 50 mg (Miligrams Monthly quantity needed: 60 How many day supply requestin days Medication route: oral (PO) Medication administration time(s): 2 times a day (BID) If taking medication PRN, reason for taking medication: N/A If this is a controlled substance do you receive this or any other controlled medication from any other doctor or facility: N/A Ordering provider: Delfin Date of last office visit: 04/06/2023 Date of next office visit: 10/05/2023 Date of last refill: (see medication tab): 04/06/23 Updated/Validated preferred pharmacy: Yes Patient instructed to contact the pharmacy prior to picking up the medication: Yes documented in this encounter [facility] 07-14-2023 Telephone encounter Note Edmond called asking the status of the script being send to the pharm. Please send to the pharm [facility] 06-28-2023 Telephone encounter Note [facility] [address] Medication name: metoprolol tartrate (Lopressor) 50 MG tablet Medication dosage: 50 mg (Miligrams Monthly quantity needed: 60 How many day supply requestin days Medication route: oral (PO) Medication administration time(s): 2 times a day (BID) If taking medication PRN, reason for taking medication: N/A If this is a controlled substance do you receive this or any other controlled medication from any other doctor or facility: N/A Ordering provider: Delfin Date of last office visit: 04/06/2023 Date of next office visit: 10/05/2023 Date of last refill: (see medication tab): 04/06/23 Updated/Validated preferred pharmacy: Yes Patient instructed to contact the pharmacy prior to picking up the medication: Yes [facility] 06-07-2023 Telephone encounter Note Name of caller: Edmond Contact phone number: [phone] Relationship to Patient: patient Provider: delfin Practice: [facility] Chief Complaint/Reason for Call: Edmond called stating the [facility] only gave him a 30 day supply and is he wants it to go to [facility]. Best time of day caller can be reached: any Patient advised that office/PCP has 24-48 business hours to return their call: no [facility] 05-30-2023 Telephone encounter Note Recent Visits Date Type Provider Dept 04/06/23 Office Visit Minor Beasley DO [facility] 09/26/22 Office Visit Minor Beasley DO [facility] Showing recent visits within past 365 days and meeting all other requirements Future Appointments No visits were found meeting these conditions. Showing future appointments within next 90 days and meeting all other requirements Requested Prescriptions Pending Prescriptions Disp Refills enalapril (Vasotec) 5 MG tablet 90 tablet 1 Sig: Take 1 tablet (5 mg) by mouth daily. metoprolol tartrate (Lopressor) 50 MG tablet 180 tablet 1 Sig: Take 1 tablet (50 mg) by mouth 2 times daily. Provider: Minor Beasley DO Verified pharmacy: yes Verified day(s) supplied: yes Verified refill(s) needed (previous prescription showing no refills in chart): Yes Have you received any controlled medications from any other provider? N/A Overdue for visit: No If yes - patient scheduled? Yes Most recent labs completed in chart? Yes Hypertension: No results found for: NA, K, EGFR, BUN, CREATININE [facility] 05-30-2023 Telephone encounter Note Ordering provider: Date of last office visit: 04/06/23 Date of next office visit: 10/05/23 Updated/Validated preferred pharmacy: Yes Patient instructed to contact the pharmacy prior to picking up the medication: Yes (1) Medication name: enalapril (Vasotec) 5 MG tablet Medication dosage: 5 MG tablet Monthly quantity needed: 30 How many day supply requestin days Medication route: oral (PO) Medication administration time(s): daily If taking medication PRN, reason for taking medication: N/A If this is a controlled substance do you receive this or any other controlled medication from any other doctor or facility: N/A Date of last refill (see medication tab): 04/06/23 (2) Medication name: metoprolol tartrate (Lopressor) 50 MG tablet Medication dosage: 50 MG tablet Monthly quantity needed: 60 How many day supply requestin days Medication route: oral (PO) Medication administration time(s): 2 times a day (BID) If taking medication PRN, reason for taking medication: N/A If this is a controlled substance do you receive this or any other controlled medication from any other doctor or facility: N/A Date of last refill (see medication tab): 04/06/23 [facility] 05-08-2023 Miscellaneous Notes Name of caller: Edmond Contact phone number: [phone] Relationship to Patient: patient Provider: delfin Practice: [facility] Chief Complaint/Reason for Call: Edmond called stating the [facility] only gave him a 30 day supply and is [facility] Best time of day caller can be reached: any Patient advised that office/PCP has 24-48 business hours to return their call: no Recent Visits Date Type Provider Dept 04/06/23 Office Visit Minor Beasley DO [facility] 09/26/22 Office Visit Minor Beasley DO [facility] Showing recent visits within past 365 days and meeting all other requirements Future Appointments No visits were found meeting these conditions. Showing future appointments within next 90 days and meeting all other requirements Requested Prescriptions Pending Prescriptions Disp Refills enalapril (Vasotec) 5 MG tablet 90 tablet 1 Sig: Take 1 tablet (5 mg) by mouth daily. metoprolol tartrate (Lopressor) 50 MG tablet 180 tablet 1 Sig: Take 1 tablet (50 mg) by mouth 2 times daily. Provider: Minor Beasley DO Verified pharmacy: yes Verified day(s) supplied: yes Verified refill(s) needed (previous prescription showing no refills in chart): Yes Have you received any controlled medications from any other provider? N/A Overdue for visit: No If yes - patient scheduled? Yes Most recent labs completed in chart? Yes Hypertension: No results found for: NA, K, EGFR, BUN, CREATININE Ordering provider: Date of last office visit: 04/06/23 Date of next office visit: 10/05/23 Updated/Validated preferred pharmacy: Yes Patient instructed to contact the pharmacy prior to picking up the medication: Yes (1) Medication name: enalapril (Vasotec) 5 MG tablet Medication dosage: 5 MG tablet Monthly quantity needed: 30 How many day supply requestin days Medication route: oral (PO) Medication administration time(s): daily If taking medication PRN, reason for taking medication: N/A If this is a controlled substance do you receive this or any other controlled medication from any other doctor or facility: N/A Date of last refill (see medication tab): 04/06/23 (2) Medication name: metoprolol tartrate (Lopressor) 50 MG tablet Medication dosage: 50 MG tablet Monthly quantity needed: 60 How many day supply requestin days Medication route: oral (PO) Medication administration time(s): 2 times a day (BID) If taking medication PRN, reason for taking medication: N/A If this is a controlled substance do you receive this or any other controlled medication from any other doctor or facility: N/A Date of last refill (see medication tab): 04/06/23 documented in this encounter [facility] 04-06-2023 History of Present illness Narrative Images from the original note were not included. [facility] [address] [place] [id number] Visit type: Established Patient Reason for Visit: Follow-up (6 month med check) Assessment / Plan: Edmond was seen today for follow-up. Diagnoses and all orders for this visit: Gastroesophageal reflux disease without esophagitis (Primary) Primary hypertension PAF (paroxysmal atrial fibrillation) (HCC) Aortic valve insufficiency, etiology of cardiac valve disease unspecified Polycystic kidney disease History of renal transplant Prostate cancer screening - PSA Total (Screening); Future - PSA Total (Screening) Hyperlipidemia, unspecified hyperlipidemia type - Lipid panel; Future - Lipid panel Other orders - enalapril (Vasotec) 5 MG tablet; Take 1 tablet (5 mg) by mouth daily. - famotidine (Pepcid) 20 MG tablet; Take 1 tablet (20 mg) by mouth 2 times daily. - metoprolol tartrate (Lopressor) 50 MG tablet; Take 1 tablet (50 mg) by mouth 2 times daily. Hypertension stable, continue Lopressor and Vasotec, acid reflux stable, continue Pepcid, PAF stable, continue Xarelto, Subjective: Patient ID: Edmond Lama is a 62 y.o. male. HPI hypertension management for patient with history of polycystic kidney disease status post renal transplant, paroxysmal atrial fibrillation and hyperlipidemia. Overall feeling well. Acid reflux well-controlled on Pepcid. Review of Systems recently [place]000 [place] Feeling well. No recent earache sore throat or cough. No chest pain palpitations PND orthopnea claudication or edema. Getting echocardiogram next week. History of moderate aortic regurgitation. No heartburn or dysphagia. No abdominal pain. No melena or blood. Bowels are regular. Colonoscopy due in a couple years. No mucus constipation or diarrhea. Needs SHAYNA and PSA. Rare postvoid dribbling but some nocturia. No dysuria hematuria. Rare arthralgia. Overall feeling pretty positive and upbeat Allergies Allergen Reactions Statins Other Muscle weakness Back pain Nickel When he gets anant-red, inflamed Current Outpatient Medications on File Prior to Visit Medication Sig Dispense Refill magnesium oxide (Mag-Ox) Take 400 mg by mouth in the morning and 400 mg in the evening. mycophenolate (Myfortic) 360 MG EC tablet Take 360 mg by mouth in the morning and 360 mg before bedtime. rivaroxaban (Xarelto) 20 MG tablet Take 1 tablet (20 mg) by mouth with evening meal. Take with food. 90 tablet 3 tacrolimus (Prograf) 0.5 MG capsule Take 1 mg by mouth 2 times daily. [DISCONTINUED] enalapril (Vasotec) 5 MG tablet Take 1 tablet (5 mg) by mouth daily. 90 tablet 1 [DISCONTINUED] famotidine (Pepcid) 20 MG tablet Take 1 tablet (20 mg) by mouth 2 times daily. 180 tablet 1 [DISCONTINUED] metoprolol tartrate (Lopressor) 50 MG tablet Take 1 tablet (50 mg) by mouth 2 times daily. 180 tablet 1 No current facility-administered medications on file prior to visit. Patient Active Problem List Diagnosis Polycystic kidney disease RLS (restless legs syndrome) Gastroesophageal reflux disease without esophagitis PAF (paroxysmal atrial fibrillation) ([facility]) Hypertension History of renal transplant Dilatation of aortic sinus of Valsalva CRF (chronic renal failure) Aortic insufficiency Hyperlipidemia ESRD on dialysis ([facility]) Class 1 obesity ADPKD (autosomal dominant polycystic kidney disease) Statin intolerance Diverticulosis Gout H/O colonoscopy with polypectomy BMI 36.0-36.9,adult Social History Tobacco Use Smoking status: Never Smokeless tobacco: Never Substance Use Topics Alcohol use: Never Past Surgical History: Procedure Laterality Date CARDIAC ABLATION P ROCEDURE (HISTORICAL) 06/2021 at [facility] CHOLECYSTECTOMY [address] Reis-small polyp COLONOSCOPY W/ POLYPECTOMY 08/2020 Dr Reis-small polyp-due 5-10 yrs HX AV GRAFT CREATION Left 10/09/2018 [facility] OTHER SURGICAL HISTORY Abdominal sx for lymphocele drainage OTHER SURGICAL HISTORY 10/08/2015 Laparoscopic peritoneal dialysis catheter placement-Dr Arshad OTHER SURGICAL HISTORY 07/22/2018 Removal peritoneal dialysis catheter at [facility] TONSILLECTOMY 1965 TRANSPLANT, KIDNEY, OPEN 1996 [facility] TRANSPLANT, KIDNEY, OPEN 07/2019 [facility] UPPER GASTROINTESTINAL ENDOSCOPY 08/2020 Dr Reis-mild GERD VENTRAL HERNIA REPAIR 2013 Family History Problem Relation Name Age of Onset Cerebral aneurysm Mother at age 55 Diabetes Father Dementia Father at age 82 No Known Problems Sister Pilar No Known Problems Brother Arjun No Known Problems Brother Scot Other Maternal Grandmother age 80 Cancer Maternal Grandfather Other Paternal Grandmother in mid 70s Dementia Paternal Grandfather age 79 Objective: BP 118/60 Pulse 59 Temp 36.3 C (97.3 F) (Temporal) Ht 5' 9 (1.753 m) Wt 249 lb (113 kg) SpO2 98% BMI 36.77 kg/m Physical Exam Pleasant alert and oriented. Normal eardrums and oropharynx. Nonicteric. No JVD adenopathy or carotid bruits. No thyroid masses. Heart is regular with with a moderate aortic regurg murmur. No gallops or ectopy. Lungs are clear. Abdomen obese nontender without pain hepatosplenomegaly masses or bruits. Extremities are pink without appreciable edema. Peripheral pulses well. Genitalia normal. Scrotum normal. No hernias. Rectal exam reveals small prostate without nodules. No rectal masses. Normal sphincter tone documented in this encounter [facility] 02-02-2023 Telephone encounter Note Medication name: metoprolol tartrate (Lopressor) 50 MG tablet [[id number]] Order Details Dose, Route, Frequency: As Directed Dispense Quantity: 180 tablet Refills: 1 Sig: TAKE 1 TABLET BY MOUTH TWICE A DAY If taking medication PRN, reason for taking medication: N/A If this is a controlled substance do you receive this or any other controlled medication from any other doctor or facility: N/A Ordering provider: Dr Beasley Date of last office visit: 09/26/2022 Date of next office visit: 04/05/2023 Date of last refill: (see medication tab): 06/10/2022 Updated/Validated preferred pharmacy: Yes Patient instructed to contact the pharmacy prior to picking up the medication: Yes [facility] 02-02-2023 Miscellaneous Notes Medication name: metoprolol tartrate (Lopressor) 50 MG tablet [[id number]] Order Details Dose, Route, Frequency: As Directed Dispense Quantity: 180 tablet Refills: 1 Sig: TAKE 1 TABLET BY MOUTH TWICE A DAY If taking medication PRN, reason for taking medication: N/A If this is a controlled substance do you receive this or any other controlled medication from any other doctor or facility: N/A Ordering provider: Dr Beasley Date of last office visit: 09/26/2022 Date of next office visit: 04/05/2023 Date of last refill: (see medication tab): 06/10/2022 Updated/Validated preferred pharmacy: Yes Patient instructed to contact the pharmacy prior to picking up the medication: Yes documented in this encounter [facility] 12-22-2022 Telephone encounter Note Pt states he is taking two times a day Medication name: famotidine (Pepcid) 20 MG tablet Medication dosage: 20 MG tablet Monthly quantity needed: 60 How many day supply requestin days Medication route: oral (PO) Medication administration time(s): 2 times a day (BID) If taking medication PRN, reason for taking medication: N/A If this is a controlled substance do you receive this or any other controlled medication from any other doctor or facility: N/A Ordering provider: Delfin Date of last office visit: 09.26.22 Date of next office visit: 04.05.23 Date of last refill: (see medication tab): 09.26.22 Updated/Validated preferred pharmacy: Yes Patient instructed to contact the pharmacy prior to picking up the medication: Yes [facility] 12-22-2022 Miscellaneous Notes Pt states he is taking two times a day Medication name: famotidine (Pepcid) 20 MG tablet Medication dosage: 20 MG tablet Monthly quantity needed: 60 How many day supply requestin days Medication route: oral (PO) Medication administration time(s): 2 times a day (BID) If taking medication PRN, reason for taking medication: N/A If this is a controlled substance do you receive this or any other controlled medication from any other doctor or facility: N/A Ordering provider: Delfin Date of last office visit: 09.26.22 Date of next office visit: 04.05.23 Date of last refill: (see medication tab): 09.26.22 Updated/Validated preferred pharmacy: Yes Patient instructed to contact the pharmacy prior to picking up the medication: Yes documented in this encounter [facility] 09-26-2022 History of Present illness Narrative Images from the original note were not included. [facility] [address] [address] Visit type: Established Patient Reason for Visit: Follow-up (Med check) Assessment / Plan: Edmond was seen today for follow-up. Diagnoses and all orders for this visit: Primary hypertension (Primary) Comments: Stable, continue metoprolol and enalapril History of renal transplant Gastroesophageal reflux disease without esophagitis Comments: Stable, continue Pepcid Statin intolerance PAF (paroxysmal atrial fibrillation) (CMS/HCC) ([facility]) Comments: Stable, continue Xarelto Other orders - famotidine (Pepcid) 20 MG tablet; Take 1 tablet (20 mg) by mouth daily. - enalapril (Vasotec) 5 MG tablet; Take 1 tablet (5 mg) by mouth daily. - Pneumococcal conjugate vaccine 20-valent IM (PREVNAR 20) Subjective: Patient ID: Edmond Lama is a 62 y.o. male. HPI hypertension and acid reflux refills for patient status post kidney transplant more than 3 years ago. Follows up with nephrology and cardiology regularly. History of paroxysmal atrial fibrillation with successful ablation in June 2021. Review of Systems overall feeling well. Will be getting lab work and a few months. No recent earache sore throat or cough. Denies exertional chest pain palpitations PND orthopnea or change in mild pretibial edema. No abdominal pain. Bowels are regular. Due for colonoscopy in quite a few years. Prostate cancer screening due in November Allergies Allergen Reactions Statins Other Muscle weakness Back pain Other reaction(s): NEEDS FOLLOW-UP Other reaction(s): Pain Current Outpatient Medications on File Prior to Visit Medication Sig Dispense Refill magnesium oxide (Mag-Ox) Take 400 mg by mouth in the morning and 400 mg in the evening. metoprolol tartrate (Lopressor) 50 MG tablet TAKE 1 TABLET BY MOUTH TWICE A DAY 180 tablet 1 mycophenolate (Myfortic) 360 MG EC tablet Take 360 mg by mouth in the morning and 360 mg before bedtime. tacrolimus (Prograf) 0.5 MG capsule Take 1 mg by mouth. Xarelto 20 MG tablet TAKE 1 TABLET BY MOUTH WITH EVENING MEAL 90 tablet 1 [DISCONTINUED] enalapril (Vasotec) 5 MG tablet Take 5 mg by mouth in the morning. [DISCONTINUED] famotidine (Pepcid) 20 MG tablet Take 20 mg by mouth in the morning and 20 mg in the evening. [DISCONTINUED] famotidine (Pepcid) 20 MG tablet Take 1 tablet by mouth in the morning and 1 tablet before bedtime. [DISCONTINUED] metoprolol succinate XL (Toprol-XL) 25 MG 24 hr tablet Take 50 mg by mouth in the morning and 50 mg in the evening. No current facility-administered medications on file prior to visit. Patient Active Problem List Diagnosis Polycystic renal disease RLS (restless legs syndrome) Gastroesophageal reflux disease without esophagitis PAF (paroxysmal atrial fibrillation) ([facility]) ([facility]) Hypertension History of renal transplant Dilatation of aortic sinus of Valsalva CRF (chronic renal failure) Aortic insufficiency Hyperlipidemia ESRD on dialysis ([facility]) Class 1 obesity ADPKD (autosomal dominant polycystic kidney disease) Statin intolerance Social History Tobacco Use Smoking status: Never Smokeless tobacco: Never Substance Use Topics Alcohol use: Not Currently Past Surgical History: Procedure Laterality Date CARDIAC ABLATION P ROCEDURE (HISTORICAL) 06/2021 at [facility] CHOLECYSTECTOMY [address] Reis-small polyp COLONOSCOPY 08/2020 Dr Reis-small polyp-due 5-10 yrs HX AV GRAFT CREATION Left 10/09/2018 [place] OTHER SURGICAL HISTORY Abdominal sx for lymphocele drainage OTHER SURGICAL HISTORY 10/08/2015 Laparoscopic peritoneal dialysis catheter placement-Dr Arshad OTHER SURGICAL HISTORY 07/22/2018 Removal peritoneal dialysis catheter at [facility] TONSILLECTOMY 1965 TRANSPLANT, KIDNEY, OPEN 1996 [facility] TRANSPLANT, KIDNEY, OPEN 07/2019 [facility] UPPER GASTROINTESTINAL ENDOSCOPY 08/2020 Dr Reis-mild GERD VENTRAL HERNIA REPAIR 2013 Family History Problem Relation Name Age of Onset Cerebral aneurysm Mother at age 55 Diabetes Father Dementia Father at age 82 No Known Problems Sister Pilar No Known Problems Brother Arjun No Known Problems Brother Scot Other Maternal Grandmother age 80 Cancer Maternal Grandfather Other Paternal Grandmother in mid 70s Dementia Paternal Grandfather age 79 Objective: BP 126/71 Pulse 55 Temp 36.3 C (97.3 F) (Temporal) Ht 5' 9 (1.753 m) Wt 249 lb (113 kg) SpO2 98% BMI 36.77 kg/m Physical Exam Recheck blood pressure excellent. He appears well. Alert and pleasant. No JVD carotid bruits or adenopathy. No thyroid or neck masses. Heart is regular today without new murmurs or ectopy. Lungs are diminished but clear of rales wheezes or egophony. Abdomen obese nontender without pain hepatosplenomegaly masses or bruits. No ascites. Extremities have trace pretibial edema. Posterior tibial pulses are adequate documented in this encounter [facility] 06-10-2022 Telephone encounter Note Last appointment 11/03/21, Next appointment is 11/04/22 Last filled 12/17/21 #180 with 1 refill [facility] 06-10-2022 Miscellaneous Notes Last appointment 11/03/21, Next appointment is 11/04/22 Last filled 12/17/21 #180 with 1 refill documented in this encounter [facility] 08-16-2021 History of Present illness Narrative Images from the original note were not included. [facility] Patient Name: Edmond Lama Crusher Screen Repairer: Anjali Jaquez Date of Kidney Transplant: 08/01/2019 Primary Disease: Retransplant/Graft Failure Kidney Transplant Assistant Store Director: Louie Plasencia Primary Care physician: Minor Beasley Last Transplant Appointment: 02/15/2021 MONITORING: On DGF Protocol? no HLA Mismatch: A1 B2 DR1 Living Donor? No Increased Risk donor? Yes Labs done 09/04/2019 EBV IgG Donor / Recipient D + / R+ CMV IgG Donor / Recipient: D- / R+ On Valcyte or frequent labs? yes CMV weekly x12 weeks DONE Ureteral Stent? yes Removed / Removal Sched? yes When? 09/04/2019 - 12:00 Hepatitis C+/ANAT- donor? no Hepatitis C+/ANAT+ donor? no IMMUNOSUPPRESSION AND LABS: Current Immunosuppressive Medication(s) Immunosuppressive Agents mycophenolate sodium (MYFORTIC) [address] tablet DR Take 1 tablet by mouth every 12 hours. tacrolimus (PROGRAF) 0.5 MG capsule TAKE 2 CAPSULES BY MOUTH EVERY 12 HOURS I/S levels: No results found for: CYCLOSPORIN, CYCLOSPORIN2, [id number], CYCLORAND No components found for: CYCLOSPORINE, 2HR POST No results found for: SIROLIMUS, RAPAMUNE, RAPAMYCIN No results found for: EVEROLIMUS, EVRLMSTRGH, EVERTRGHMANE Lab Results Component Value Date TACROLIMUS 7.8 09/16/2019 TACROLIMUS 32.2 (H) 08/12/2019 TACROLIMUS 9.0 08/08/2019 TACROTRGHMAN 7.4 07/22/2021 TACROTRGHMAN 6.1 06/22/2021 TACROTRGHMAN 7.0 05/24/2021 CHEMISTRY: Lab Results Component Value Date CREATSERUM 1.13 07/22/2021 CREATSERUM 1.08 07/06/2021 CREATSERUM 1.12 06/22/2021 HEMATOLOGY: Lab Results Component Value Date WBC 7.0 07/22/2021 WBC 6.15 07/06/2021 WBC 7.0 06/22/2021 Lab Results Component Value Date HGB 16.1 07/22/2021 HGB 15.8 07/06/2021 HGB 15.2 06/22/2021 IMMUNOLOGY: Lab Results Component Value Date CMVPCR <50 12/17/2019 CMVPCR <390 10/29/2019 CMVPCR <390 10/15/2019 EBVBYPCR <1,000 12/17/2019 BKVIRALP <500 08/27/2020 BKVIRALP <500 02/03/2020 BKVIRALP <500 09/04/2019 CURRENT MEDICATIONS: Rivaroxaban, aspirin, enalapril, faMOTIdine, magnesium oxide, metoprolol succinate, mycophenolate sodium, pantoprazole, and tacrolimus [facility] [address] [place] [address] Change in lab frequency / new order today: Annual lab letter- in letters 07/13/2021 Labs needed in clinic today? yes enter orders & screen shot Alloscreen, UPC, BK COORDINATOR NOTES: Images from the original note were not included. Today we were happy to see Edmond Lama at [facility] for evaluation and management of immunosuppression and associated conditions in the setting of solid organ transplantation. As you may be aware Mr. Lama is a 61 y.o. year-old male. He received an organ transplant from a Donation after Brain Kidney Donor on 08/01/2019 (Kidney), 11/04/1996 (Kidney). The patient is currently 747 days out from transplantation. 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 Transplant Details: PCKD s/p LDRT 1996, now failed since 2015 on HD vis LUE AVF. A1 B2 DR 1, CMV D-/R+, EBV R+, KDPI 48%. (ATG) (4.04 mg/kg total) and a rapid prednisone taper. He was then started on mycophenolate and tacrolimus for maintenance immunosuppression. There has been a review of the patient s post-transplant course. Plan for today - feeling well. Renal function stable, no change in IS (goal 4-6, 10 hr trough). Viral PCR, DSA neg. Will follow with general nephrology and dermatology. The patient was last seen for follow-up at the [facility] on 08/17/21. We did review if the patient has had any changes in the past medical history, general state of health, hospitalizations, or visited the Emergency Room for any reason. The patient s problem, allergy and medication lists have been reviewed and updated today. REVIEW OF SYSTEMS: The patient currently endorses no complains and denies chest pain, shortness of breath, nausea or emesis. Otherwise all other systems are per HPI or negative. MEDICATIONS: Current Outpatient Medications Medication Sig aspirin 81 MG Chew Tab chewable tablet Chew 1 tablet daily every morning. Take for 1 month then stop 08/06/2021 enalapril 5 MG tablet TAKE 1 TABLET DAILY faMOTIdine 20 MG tablet Take 20 mg by mouth 2 times daily. magnesium oxide 400 (241.3 Mg) MG tablet Take 1 tablet by mouth 2 times daily. metoprolol succinate 25 MG tablet XL Take 50 mg by mouth 2 times daily. mycophenolate sodium (MYFORTIC) [address] tablet DR Take 1 tablet by mouth every 12 hours. pantoprazole [address] tablet DR Take 1 tablet by mouth daily. Take for 1 month then stop 08/06/2021 Rivaroxaban 20 MG tablet Take 20 mg by mouth daily with dinner. tacrolimus (PROGRAF) 0.5 MG capsule TAKE 2 CAPSULES BY MOUTH EVERY 12 HOURS PHYSICAL EXAM: VITALS: Blood pressure 107/69, pulse 66, temperature 97.7 F (36.5 C), temperature source Temporal, weight 108 kg (238 lb 3.2 oz). GENERAL: Alert and oriented x 3 in no apparent Distress HEENT: Normocephalic, EOMI, Moist Oral Membranes, Neck Soft/Supple, No JVD or LAD CV: Regular Rhythm, Positive S1 / S2, Negative for Rubs PULM: Bilateral Breath Sounds. No Wheezes, Crackles, Rubs, Ronchi ABD: Soft, Non-Tender, Positive Bowel Sounds : Transplanted Graft Palpable. Non-Tender, Erythematous, or Warm EXT: Symmetric, Mobile, No Edema, No Cyanosis or Clubbing LABORATORY VALUES: WBC, MANUAL ENTER Date Value Ref Range Status 07/22/2021 7.0 Final Hemoglobin (HGB), MANUAL ENTER Date Value Ref Range Status 07/22/2021 16.1 Final HEMATOCRIT (HCT), MANUAL ENTER Date Value Ref Range Status 07/22/2021 50.4 Final PLATELETS, MANUAL ENTER Date Value Ref Range Status 07/22/2021 193 Final SODIUM (NA), MANUAL ENTER Date Value Ref Range Status 07/22/2021 139 mmol/L Final Chloride (CL), MANUAL ENTER Date Value Ref Range Status 07/22/2021 110 Final Blood Urea Nitrogen (BUN), MANUAL ENTER Date Value Ref Range Status 07/22/2021 18 Final POTASSIUM (K+), MANUAL ENTER Date Value Ref Range Status 07/22/2021 4.4 Final HCO3 Date Value Ref Range Status 08/01/2019 25.6 mmol/L Final CREATININE, SERUM, MANUAL ENTER Date Value Ref Range Status 07/22/2021 1.13 Final GLUCOSE, MANUAL ENTER Date Value Ref Range Status 07/22/2021 106 Final PT Date Value Ref Range Status 07/06/2021 14.1 11.9 - 14.2 sec Final PTT Date Value Ref Range Status 07/06/2021 32.6 24.0 - 34.3 sec Final Total Protein Date Value Ref Range Status 08/27/2020 6.6 6.4 - 8.3 g/dL Final ALBUMIN, MANUAL ENTER Date Value Ref Range Status 07/22/2021 3.5 Final AST, MANUAL ENTER Date Value Ref Range Status 07/22/2021 15 Final ALT, MANUAL ENTER Date Value Ref Range Status 07/22/2021 24 Final GGT Date Value Ref Range Status 01/31/2018 13 8 - 64 U/L Final Bilirubin, Total, MANUAL ENTER Date Value Ref Range Status 07/22/2021 0.40 Final CALCIUM (CA), MANUAL ENTER Date Value Ref Range Status 07/22/2021 10.6 Final Phosphate (PO4), Manual Enter Date Value Ref Range Status 03/24/2021 2.6 Final MAGNESIUM (MG), MANUAL ENTER Date Value Ref Range Status 07/22/2021 1.6 Final ASSESSMENT AND PLAN: Encounter for aftercare post-transplant: Latest Creatinine Lab Results Component Value Date CREATSERUM 1.13 07/22/2021 CREATURINE 68.20 07/22/2021 Patient is within the usual baseline. No interventions are warranted at this time. Proteinuria: Last Urine Protein/Creatinine Ratio: PROTEIN/CREATININE RATIO, MANUAL ENTER Date Value Ref Range Status 07/22/2021 .189 Final Prot/Creat Ratio Date Value Ref Range Status 08/27/2020 0.137 Final At Goal. An intervention is not indicated at this time. High Risk Medical Decision Making For Drug Therapy Requiring Intensive Monitoring For Toxicity Current Immunosuppressive medication(s) include: Current Immunosuppressive Medication(s) Immunosuppressive Agents mycophenolate sodium (MYFORTIC) [address] tablet DR Take 1 tablet by mouth every 12 hours. tacrolimus (PROGRAF) 0.5 MG capsule TAKE 2 CAPSULES BY MOUTH EVERY 12 HOURS I/S levels: Lab Results Component Value Date TACROLIMUS 7.8 09/16/2019 No Changes are warranted at this time. Will continue intensive monitoring for drug levels and toxicity via regularly scheduled laboratory assays given the narrow therapeutic index of the immunosuppressive drug therapy listed above. High risk for infection in setting of immunosuppression 1) BK, CMV PCR negative. 2) Bactrim Dc by Dr. Busby 3) No DSAs Hypertension: Stable Today in the clinic the blood pressure was BP Readings from Last 1 Encounters: 08/16/21 107/69 These values are acceptable. An intervention is not indicated at this time. Anemia of chronic kidney disease: Latest hemoglobin Hemoglobin (HGB), MANUAL ENTER Date Value Ref Range Status 07/22/2021 16.1 Final Acceptable per current post-transplant protocols. An intervention is not indicated at this time. Bone mineral disease Last Phosphorous Level: Phosphate (PO4), Manual Enter Date Value Ref Range Status 03/24/2021 2.6 Final Last Calcium Level: CALCIUM (CA), MANUAL ENTER Date Value Ref Range Status 07/22/2021 10.6 Final Last PTH PTH INTACT, MANUAL ENTER Date Value Ref Range Status 03/24/2021 289.8 Final No interventions are warranted at this time. Hyperlipidemia: Stable TOTAL CHOLESTERL, MANUAL ENTER Date Value Ref Range Status 07/22/2021 175 Final HDL, MANUAL ENTER Date Value Ref Range Status 07/22/2021 34 Final LDL, MANUAL ENTER Date Value Ref Range Status 01/22/2021 99 Final TRIGLYCERIDES, MANUAL ENTER Date Value Ref Range Status 07/22/2021 461 Final No results found for: TCHHDLMANENT An intervention is not indicated at this time. Counseling: I counseled the patient on: The need to avoid sun exposure and the use of sunblock while outdoors given the relatively higher risk of skin malignancy in an immunosuppressed state. The need for adherence to immunosuppression medication. Patient verbalized understanding. Follow-Up: The patient will follow-up with us in clinic per transplant center follow-up protocol however we will see patient earlier should the need arise. We have ordered transplant specific labs per the center s guidelines to monitor and assess for toxicities from immunosuppressant drug therapy. - Yearly dermatology follow-up - Establish contact with general nephrology per Transplant center protocol - Age appropriate health screening per PCP Thank you for allowing us to partake in the care of your patient. Should you have any questions please do not hesitate to contact me. documented in this encounter [facility] 08-16-2021 Instructions Yeni Tapia RN - 08/16/2021 2:28 PM EDT Return to clinic in one year documented in this encounter [facility] 07-07-2021 Instructions NORTH Aguiar - 07/07/2021 8:36 AM EDT Follow up as scheduled with NORTH Aguiar on 11/16/2021. If you have any questions, please contact nurse Stout - for urgent questions: call [phone] option 3 - non urgent questions: send [employer] message documented in this encounter [facility] 07-07-2021 History of Present illness Narrative ESTABLISHED PATIENT VIDEO VISIT - CARDIAC ELECTROPHYSIOLOGY Primary care provider: Minor Beasley DO Electrophysiology physician: Azalea Leigh MD Local cardiology provider: Ayden Barclay MD Provider for this encounter: NORTH Aguiar It was my pleasure to see Edmond Lama in real-time audiovisual consultation for Cardiovascular Electrophysiology on 07/07/2021. Mr. Lama is a 61 y.o. male with a history including AF, HTN, PCKD s/p LDRT 1996 that failed in 2015 on HD via LUE AVF s/p donor renal transplant 07/2019, anemia, and morbid obesity. Mr. Lama follows with our group for management of AF, diagnosed in approximately 2018 and historically managed with metoprolol. He underwent PVI ablation on 07/06/2021. Post procedure bedside echo showed no pericardial effusion. Femoral venous access sites inspected without evidence of hematoma. He is anticoagulated with rivaroxaban for [id number] Score: 1 (for HTN). He is being seen today for hospital follow up after same day discharge. ASSESSMENT and PLAN Mr. Lama is managed today for the following issues: paroxsymal atrial fibrillation He reports feeling well. Groin access site is soft and non tender with no ecchymosis. - Continue metoprolol for rhythm control. - Continue low dose aspirin along with rivaroxaban for stroke risk reduction. - Pantoprazole for 30 days post procedure to prevent esophageal problems, then resume home famotidine. 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 - Discussed diet/lifestyle modifications to avoid exacerbations/promote heart health and weight loss, specifically initiation of a regular walking regimen. hypertension 119/85 today. Satisfactory. - Encouraged periodic home monitoring. - Continue current regimen. obesity, class 2 Body mass index is 35.44 kg/m . - Discussed the health benefits of diet and lifestyle modifications to promote weight loss, specifically initiation of a regular walking regimen. RECOMMENDED FOLLOW UP We will plan on return visit in 3-4 months, or sooner if needed. If you have any questions or concerns, please do not hesitate to contact me. Sincerely, Renee Calle APRN-WORKERS COMPENSATION COORDINATOR Clinical Electrophysiology, Division of Cardiovascular Medicine, [facility] SUBJECTIVE Today the patient reports feeling real good. No regular exercise typically. Review of Systems Constitutional: Negative for decreased appetite, malaise/fatigue and weight gain. Cardiovascular: Negative for chest pain, dyspnea on exertion, irregular heartbeat, near-syncope, orthopnea, palpitations, paroxysmal nocturnal dyspnea and syncope. Respiratory: Negative for cough, shortness of breath, sleep disturbances due to breathing and snoring. Hematologic/Lymphatic: Negative for bleeding problem. Does not bruise/bleed easily. Musculoskeletal: Negative for falls. Gastrointestinal: Negative for change in bowel habit. Genitourinary: Negative for dysuria. Neurological: Negative for dizziness and light-headedness. Psychiatric/Behavioral: The patient does not have insomnia. OBJECTIVE Physical Exam This physical examination was performed in a telemedical setting. Constitutional: In general, the patient appears well and in no distress. Obese. Eyes: Gaze appears conjugate. No apparent xanthelasmas. ENMT: No nasal deformities noted. No nasal discharge. Cardiovascular: No gross jugular venous distention visible. No periorbital or facial edema to suggest intravascular volume overload. Respiratory: No respiratory distress, normal work of breathing. No audible wheezing or stridor. Skin: Without apparent icterus, rash, or other lesions of the visualized skin. No significant facial wounds or ecchymoses apparent. Neurologic: Alert. Oriented to self, place, and time. Psychiatric: Good attention and normal thought process. Mood is fair. Good insight into situation and disease process. The following historical elements were reviewed by a provider in the specific [facility] and updated as appropriate: Tobacco Allergies Meds Problems Vital signs. I have reviewed each of the following bulleted unique test results as part of today's service: Notes from Connor Leigh EP report 06/2021 I have ordered the following: No orders of the defined types were placed in this encounter. NOTES: I confirm that this is a telehealth visit, using the synchronous technology for real-time patient interaction as denoted below, which was conducted during the [facility] Public Health Emergency in an effort to reduce in clinic visits, where possible, to mitigate the societal risk of spread of infectious illness. The patient's identity with name and date of was confirmed. By scheduling this appointment, the patient has already verbally consented to the submission of and accepts potential risks, benefits, and possible coinsurance/copay cost associated with a telehealth visit, and care was taken to assess for presence of any medical issues that would be more appropriate for expedited in-person assessment. I personally spent the following amount of time to complete the visit: ACTIVITY TIME Direct synchronous communication with the patient by video. 17 minutes Other patient care activities related to this service including chart/data review, coordination of care, and/or preparation of documentation. 11 minutes Total time spent on this service. 28 minutes Medical decision making complexity was moderate. documented in this encounter [facility] 07-06-2021 History of Present illness Narrative Edmond Lama was appropriately screened for same day discharge following successful AFib catheter ablation. The patient is awake and alert. Bedside echo showed no pericardial effusion. Femoral venous access sites were inspected and showed no hematoma. Edmond Lama has a family member who can care for the patient today. I counseled him regarding probable pericarditis that may last for a few days following catheter ablation. The next day telemedicine follow-up by EP TUBE ROOM CASHIER has been scheduled. All questions were addressed. Edmond Lama is appropriate and ready for same day discharge. documented in this encounter [facility] 07-06-2021 Note Formatting of this n ote might be different from the original. Discharge instructions given to and patient, verbalized understanding [facility] Miscellaneous Notes Discharge instructions given to and patient, verbalized understanding Pt arrives to room 2402 in IPR for afib. ECG completed. IV started in left arm. Labs drawn and sent. 0.9 NS IVF initiated @ 10mL/ hr per pump. Pt prep completed. Valuables given to self. Clothes secured in room. Questions about procedure answered. Family brought to bedside. Bed in low position, side rail up x2 and call light given to pt. Tele monitor shows . documented in this encounter [facility] 07-06-2021 Note Formatting of this n ote might be different from the original. July 06, 2021 CARMENZA Bejarano [address] [place] [address] RE: EDMOND LAMA DATE OF SERVICE:07/06/[address] Madera, I had the pleasure of taking care of your patient today. This is a pleasant 61-year-old gentleman with a history of paroxysmal atrial fibrillation, hypertension, and end-stage renal disease status post kidney transplant who was referred to me for AFib catheter ablation. Given his relatively young age, we proceeded with primary catheter ablation of symptomatic paroxysmal atrial fibrillation today. We achieved a wide area of pulmonary vein electrical isolation without acute complications. The procedure was undertaken on an outpatient basis. Given his elevated thromboembolic risk, I recommended that he continue anticoagulation with Xarelto for long-term. Thank you very much for referring this patient. I will continue to follow him from the AFib standpoint. Should you have any questions regarding his care, please do not hesitate to contact me. Sincerely, Azalea Leigh MD [facility] Work Phone: 07-06-2021 Miscellaneous Notes July 06, 2021 CARMENZA Bejarano [address] [place] [address] RE: EDMOND LAMA DATE OF SERVICE:07/06/[address] Madera, I had the pleasure of taking care of your patient today. This is a pleasant 61-year-old gentleman with a history of paroxysmal atrial fibrillation, hypertension, and end-stage renal disease status post kidney transplant who was referred to me for AFib catheter ablation. Given his relatively young age, we proceeded with primary catheter ablation of symptomatic paroxysmal atrial fibrillation today. We achieved a wide area of pulmonary vein electrical isolation without acute complications. The procedure was undertaken on an outpatient basis. Given his elevated thromboembolic risk, I recommended that he continue anticoagulation with Xarelto for long-term. Thank you very much for referring this patient. I will continue to follow him from the AFib standpoint. Should you have any questions regarding his care, please do not hesitate to contact me. Sincerely, Azalea Leigh MD Patient brought to [facility] lab and discovered to be in NSR. Per Dr. Leigh's last note and after discussing with him this morning, [facility] was canceled due to patient being in SR and and missing no doses of Xarelto. Russell Gonzalez MD PGY6 Fish Cleaner Machine [employer] Pager: [phone] documented in this encounter [facility] 07-06-2021 Note Formatting of this n ote might be different from the original. Patient brought to [facility] lab and discovered to be in NSR. Per Dr. Leigh's last note and after discussing with him this morning, JONO was canceled due to patient being in SR and and missing no doses of Xarelto. Russell Gonzalez MD PGY6 Fish Cleaner Machine [employer] Pager: [phone] [facility] Work Phone: 07-06-2021 History and physical note Images from the original note were not included. Chief Complaint headache HPI Edmond Lama is a 61 y.o. male with paroxysmal atrial fibrillation, s/p cardioversion 11/2020, hypertension, ESRD on dialysis, renal transplant, obesity. He was seen by Dr. Leigh in EP clinic on 06/02/2021 for consultation of atrial fibrillation. He endorses a headache when he goes out of rhythm. He states he has been dealing with atrial fibrillation for over three years. He is here today for AF RFA and is agreeable. Patient Active Problem List Diagnosis ESRD on dialysis Kidney transplant candidate -donor kidney transplant recipient Obesity: body mass index of 30.0-34.9 Past Medical History: Diagnosis Date ADPKD (autosomal dominant polycystic kidney disease) Anemia Arrhythmia Atrial fibrillation 04/2019 confirmed in H &P Diverticulosis 07/2013 Essential hypertension, benign FSGS (focal segmental glomerulosclerosis) Gout Hyperlipidemia Partial small bowel obstruction 04/2008 Proteinuria RLS (restless legs syndrome) Ruptured cyst of kidney Secondary hyperparathyroidism Past Surgical History: Procedure Laterality Date KIDNEY TRANSPLANT W/O [place]IK NEPHRECTOMY N/A 08/01/2019 Laterality: N/A; Surgeon: Kathy Mora MD, PhD; Location: [facility] MAIN [facility] HERNIA REPAIR 04/2013 CHOLECYSTECTOMY 2004 RENAL TRANSPLANT 11/04/1996 LR (brother) at [place] LYMPHOCELE DRAINAGE Medications Prior to Admission Medication Sig Dispense Refill Last Dose enalapril 5 MG tablet TAKE 1 TABLET DAILY 90 tablet 3 07/06/2021 at Unknown time faMOTIdine 20 MG tablet Take 20 mg by mouth 2 times daily. 07/06/2021 at Unknown time magnesium oxide 400 (241.3 Mg) MG tablet Take 1 tablet by mouth 2 times daily. 60 tablet 11 07/06/2021 at Unknown time metoprolol succinate 25 MG tablet XL Take 50 mg by mouth 2 times daily. 07/06/2021 at Unknown time mycophenolate sodium (generic) [address] tablet DR TAKE 1 TABLET BY MOUTH EVERY 12 HOURS. 60 tablet 6 07/06/2021 at Unknown time Rivaroxaban 20 MG tablet Take 20 mg by mouth daily with dinner. 07/05/2021 at 0900 tacrolimus (PROGRAF) 0.5 MG capsule TAKE 2 CAPSULES BY MOUTH EVERY 12 HOURS 120 capsule 8 07/06/2021 at Unknown time Allergies Allergen Reactions Statins Pain Back pain Social History Socioeconomic History Marital status: Tobacco Use Smoking status: Never Smoker Smokeless tobacco: Never Used Substance and Sexual Activity Alcohol use: Never Family History Problem Relation Age of Onset Diabetes Father Hypertension Father Diabetes Sister Cancer- Other Maternal Grandmother Heart Disease - Other Maternal Grandmother Heart Disease - Other Paternal Grandfather PCP Minor BUNDY MD: Denzel Anticoagulation: Xarelto Has the patient missed any doses of anticoagulation. none When was the last dose taken. 07/05 AM [id number]- Vasc score: 1 ( HTN ) Previous antiarrythmic medications: none Prior Cardiac testing: ECHOCARDIOGRAM (OUTSIDE) (Final) 06/25/2020 Review of System Constitutional: Negative for fever, weight loss, weight gain and malaise/fatigue. Skin: Negative. HEENT: Negative. Cardiovascular: Negative for leg swelling. Negative for palpitations, chest pain, dyspnea, orthopnea, claudication, edema and PND. Negative for lightheadedness or syncope. Respiratory: Negative for cough. Is not experiencing shortness of breath currently. Gastrointestinal: Negative for abdominal pain, nausea, vomiting, diarrhea, melena, and constipation. Endocrine: Negative for polyuria, polydipsia, heat or cold intolerance. Genitourinary: Negative for frequency or burning with urination. Past history of BPH or difficult catheterization? no Neurological: Negative for dizziness and headaches. Psychiatric: Negative for depression, nervous/anxious and substance abuse. Telemetry/EKG: SB 46 Temp 98.5 F (36.9 C) (Oral) Resp 16 Ht 1.753 m (5' 9) Wt 108.9 kg (240 lb) SpO2 99% BMI 35.44 kg/m Smoking Status Never Smoker Body mass index is 35.44 kg/m . Physical Exam General appearance - alert, LOC x 3, well appearing, and in no distress Neck - supple, no significant adenopathy, carotids upstroke normal bilaterally without bruits. Chest - lungs clear to auscultation Heart - regular rate and rhythm, S1 and S2 normal, no murmurs, clicks, gallops or rubs, normal bilateral carotid upstroke without bruits, no JVD Abdomen - soft, nontender, nondistended, no masses or organomegaly, bowel sounds present x 4 quadrants. Extremities - peripheral pulses normal, no pedal edema, no clubbing or cyanosis Skin - normal coloration and turgor, no rashes, no suspicious skin lesions noted Lab Results Component Value Date SODIUM 140 06/22/2021 POTASSIUM 4.1 06/22/2021 CHLORIDE 111 06/22/2021 CO2 23 06/22/2021 BUN 22 06/22/2021 CREATSERUM 1.12 06/22/2021 GLUCOSE 90 06/22/2021 Lab Results Component Value Date WBC 7.0 06/22/2021 HGB 15.2 06/22/2021 HCT 47.0 06/22/2021 PLATELET 211 06/22/2021 MCV 90.4 02/03/2020 INR Date Value Ref Range Status 08/05/2019 1.1 0.9 - 1.1 Final 08/02/2019 1.2 (H) 0.9 - 1.1 Final 08/01/2019 1.2 (H) 0.9 - 1.1 Final PTT Date Value Ref Range Status 08/05/2019 25.4 24.0 - 34.3 sec Final 08/02/2019 25.7 24.0 - 34.3 sec Final 08/01/2019 28.7 24.0 - 34.3 sec Final Assessment and Plan Atrial fibrillation -OK to proceed with procedure pending lab results -NPO since midnight Associated attestation - Azalea Leigh MD - 07/06/2021 8:02 AM EDT Attending Physician Note I have personally interviewed and examined this patient with the Nurse Practitioner/Resident/Fellow on 07/06/2021 I have reviewed the history and examination and edited these in the note above. Patient is alert and oriented and VS stable. I agree with the medical decision and components of the note as edited by me. Azlaea Leigh MD Cardiac EP Staff Division of Cardiovascular Medicine Pager: [phone] [facility] 07-06-2021 History and physical note Images from the original note were not included. Chief Complaint headache HPI Edmond Lama is a 61 y.o. male with paroxysmal atrial fibrillation, s/p cardioversion 11/2020, hypertension, ESRD on dialysis, renal transplant, obesity. He was seen by Dr. Leigh in EP clinic on 06/02/2021 for consultation of atrial fibrillation. He endorses a headache when he goes out of rhythm. He states he has been dealing with atrial fibrillation for over three years. He is here today for AF RFA and is agreeable. Patient Active Problem List Diagnosis ESRD on dialysis Kidney transplant candidate -donor kidney transplant recipient Obesity: body mass index of 30.0-34.9 Past Medical History: Diagnosis Date ADPKD (autosomal dominant polycystic kidney disease) Anemia Arrhythmia Atrial fibrillation 04/2019 confirmed in H &P Diverticulosis 07/2013 Essential hypertension, benign FSGS (focal segmental glomerulosclerosis) Gout Hyperlipidemia Partial small bowel obstruction 04/2008 Proteinuria RLS (restless legs syndrome) Ruptured cyst of kidney Secondary hyperparathyroidism Past Surgical History: Procedure Laterality Date KIDNEY TRANSPLANT W/O [place] NEPHRECTOMY N/A 08/01/2019 Laterality: N/A; Surgeon: Kathy Mora MD, PhD; Location: [facility] MAIN OR HERNIA REPAIR 04/2013 CHOLECYSTECTOMY 2004 RENAL TRANSPLANT 11/04/1996 LR (brother) at [place] LYMPHOCELE DRAINAGE Medications Prior to Admission Medication Sig Dispense Refill Last Dose enalapril 5 MG tablet TAKE 1 TABLET DAILY 90 tablet 3 07/06/2021 at Unknown time faMOTIdine 20 MG tablet Take 20 mg by mouth 2 times daily. 07/06/2021 at Unknown time magnesium oxide 400 (241.3 Mg) MG tablet Take 1 tablet by mouth 2 times daily. 60 tablet 11 07/06/2021 at Unknown time metoprolol succinate 25 MG tablet XL Take 50 mg by mouth 2 times daily. 07/06/2021 at Unknown time mycophenolate sodium (generic) [address] tablet DR TAKE 1 TABLET BY MOUTH EVERY 12 HOURS. 60 tablet 6 07/06/2021 at Unknown time Rivaroxaban 20 MG tablet Take 20 mg by mouth daily with dinner. 07/05/2021 at 0900 tacrolimus (PROGRAF) 0.5 MG capsule TAKE 2 CAPSULES BY MOUTH EVERY 12 HOURS 120 capsule 8 07/06/2021 at Unknown time Allergies Allergen Reactions Statins Pain Back pain Social History Socioeconomic History Marital status: Tobacco Use Smoking status: Never Smoker Smokeless tobacco: Never Used Substance and Sexual Activity Alcohol use: Never Family History Problem Relation Age of Onset Diabetes Father Hypertension Father Diabetes Sister Cancer- Other Maternal Grandmother Heart Disease - Other Maternal Grandmother Heart Disease - Other Paternal Grandfather PCP Minor BUNDY MD: Denzel Anticoagulation: Xarelto Has the patient missed any doses of anticoagulation. none When was the last dose taken. 07/05 AM [id number]- Vasc score: 1 ( HTN ) Previous antiarrythmic medications: none Prior Cardiac testing: ECHOCARDIOGRAM (OUTSIDE) (Final) 06/25/2020 Review of System Constitutional: Negative for fever, weight loss, weight gain and malaise/fatigue. Skin: Negative. HEENT: Negative. Cardiovascular: Negative for leg swelling. Negative for palpitations, chest pain, dyspnea, orthopnea, claudication, edema and PND. Negative for lightheadedness or syncope. Respiratory: Negative for cough. Is not experiencing shortness of breath currently. Gastrointestinal: Negative for abdominal pain, nausea, vomiting, diarrhea, melena, and constipation. Endocrine: Negative for polyuria, polydipsia, heat or cold intolerance. Genitourinary: Negative for frequency or burning with urination. Past history of BPH or difficult catheterization? no Neurological: Negative for dizziness and headaches. Psychiatric: Negative for depression, nervous/anxious and substance abuse. Telemetry/EKG: SB 46 Temp 98.5 F (36.9 C) (Oral) Resp 16 Ht 1.753 m (5' 9) Wt 108.9 kg (240 lb) SpO2 99% BMI 35.44 kg/m Smoking Status Never Smoker Body mass index is 35.44 kg/m . Physical Exam General appearance - alert, LOC x 3, well appearing, and in no distress Neck - supple, no significant adenopathy, carotids upstroke normal bilaterally without bruits. Chest - lungs clear to auscultation Heart - regular rate and rhythm, S1 and S2 normal, no murmurs, clicks, gallops or rubs, normal bilateral carotid upstroke without bruits, no JVD Abdomen - soft, nontender, nondistended, no masses or organomegaly, bowel sounds present x 4 quadrants. Extremities - peripheral pulses normal, no pedal edema, no clubbing or cyanosis Skin - normal coloration and turgor, no rashes, no suspicious skin lesions noted Lab Results Component Value Date SODIUM 140 06/22/2021 POTASSIUM 4.1 06/22/2021 CHLORIDE 111 06/22/2021 CO2 23 06/22/2021 BUN 22 06/22/2021 CREATSERUM 1.12 06/22/2021 GLUCOSE 90 06/22/2021 Lab Results Component Value Date WBC 7.0 06/22/2021 HGB 15.2 06/22/2021 HCT 47.0 06/22/2021 PLATELET 211 06/22/2021 MCV 90.4 02/03/2020 INR Date Value Ref Range Status 08/05/2019 1.1 0.9 - 1.1 Final 08/02/2019 1.2 (H) 0.9 - 1.1 Final 08/01/2019 1.2 (H) 0.9 - 1.1 Final PTT Date Value Ref Range Status 08/05/2019 25.4 24.0 - 34.3 sec Final 08/02/2019 25.7 24.0 - 34.3 sec Final 08/01/2019 28.7 24.0 - 34.3 sec Final Assessment and Plan Atrial fibrillation -OK to proceed with procedure pending lab results -NPO since midnight Associated attestation - Azalea Leigh MD - 07/06/2021 8:02 AM EDT Attending Physician Note I have personally interviewed and examined this patient with the Nurse Practitioner/Resident/Fellow on 07/06/2021 I have reviewed the history and examination and edited these in the note above. Patient is alert and oriented and VS stable. I agree with the medical decision and components of the note as edited by me. Azalea Leigh MD Cardiac EP Staff Division of Cardiovascular Medicine Pager: [phone] documented in this encounter [facility] 07-06-2021 Note Formatting of this n ote might be different from the original. Pt arrives to room 2402 in IPR for afib. ECG completed. IV started in left arm. Labs drawn and sent. 0.9 NS IVF initiated @ 10mL/ hr per pump. Pt prep completed. Valuables given to self. Clothes secured in room. Questions about procedure answered. Family brought to bedside. Bed in low position, side rail up x2 and call light given to pt. Tele monitor shows . [facility] 07-08-2020 Note Diagnoses/Problems Assessed History of COVID-19 virus detected (079.89) (U07.1) 12/2019 Rectal bleeding (569.3) (K62.5) Hemorrhoids (455.6) (K64.9) Loose stools (787.7) (R19.5) History of colon polyps (V12.72) (Z86.010) Chronic GERD (530.81) (K21.9) Dysphagia (787.20) (R13.10) Schatzki's ring (750.3) (K22.2) Current use of customer counter associate anticoagulation (V58.61) (Z79.01) Orders Chronic GERD, Dysphagia, Schatzki's ring Endoscopy - Upper GI; Status:Hold For - Scheduling; Requested for:08Jul2020; Perform:[facility]; Order Comments:OBTAIN CARDIAC CLEARANCE AND CLEARANCE TO HOLD ELIQUIS 3 DAYS PRIOR TO ENDOSCOPY FROM DR. MARKUS BARCLAY MD. OK TO SCHEDULE AT [facility].; Due:06Oct2020;Ordered; Stat; For:Chronic GERD, Dysphagia, Schatzki's ring; Ordered By:Lynda Vargas; Patient competent to provide consent? : Yes-pt mentally competent to provide consent Hemorrhoids, History of colon polyps, Loose stools, Rectal bleeding Colonoscopy Diagnostic; Status:Active; Requested for:08Jul2020; Perform:[facility]; Order Comments:OBTAIN CARDIAC CLEARANCE AND CLEARANCE TO HOLD ELIQUIS 3 DAYS PRIOR TO ENDOSCOPY FROM DR. MARKUS BARCLAY MD. OK TO SCHEDULE AT [facility].; Due:[id number];Ordered; Stat; For:Hemorrhoids, History of colon polyps, Loose stools, Rectal bleeding; Ordered By:Lynda Vargas; Patient competent to provide consent? : Yes-pt mentally competent to provide consent SocHx: Never smoked cigarettes Tobacco Use Screening; Status:Complete; Done: 08Jul2020 Perform:Not Applicable;Ordered; For:SocHx: Never smoked cigarettes; Ordered By:Delphine Solano; Patient Discussion/Summary 1. A telephone visit was completed for this encounter. 2. The differential diagnosis of the patient?s symptoms was discussed, and a colonoscopy and upper endoscopy were recommended. The procedures and sedation were discussed including but not limited to risks of bleeding, perforation, missed polyps, damage to other organs, and reaction to medication including cardiopulmonary events. All of the patient?s questions were answered. The patient was instructed on not being able to drive the day of the exam after being sedated. 3. The patient appears medically stable for sedation and endoscopy to be scheduled on separate dates at [facility] pending Cardiac Clearance from Dr. Markus Barclay MD. 4. Prior to scheduling: will obtain Cardiac Clearance and clearance to HOLD ELIQUIS 3 days prior to upper endoscopy and colonoscopy from Dr. Markus Barclay. 5. Continue Famotidine 20 mg daily for GERD. 6. Lifestyle changes to help alleviate heartburn/reflux are recommended. These include avoiding spicy and greasy foods, tomato based products, mint and caffeine. Alcohol and smoking should be avoided. Patient should keep at least 3 hours between eating and going to sleep. Being of a normal weight helps decrease heartburn symptoms. 7. Treatment for hemorrhoids includes medication with hydrocortisone, keeping the area clean and dry, eating a high-fiber diet, avoiding straining when moving her bowels, or sitting in a sitz bath for 10-20 minutes 2-4 times a day. 8. Begin using one heaping tablespoon of Benefiber in 8 ounces of water daily by mixing and drinking quickly. This product is lqka-nek-lmwrjpi and will help maintain regular bowel habits. 9. Begin a trial of a probiotic such as Culturelle 1 capsule daily. This product is arms-zoa-foeykpo and may help with occasional loose stools or symptoms of irritable bowel syndrome. Provider Impressions 1. Rectal bleeding 2. Hemorrhoids 3. Intermittent loose stools 4. Personal history of colon polyps 5. Chronic GERD 6. Intermittent dysphagia with history of Schatzki ring 7. Long-term/current anticoagulation therapy with Eliquis for atrial fibrillation. Surgical Rn is Dr. Markus Barclay MD. Chief Complaint A telephone visit (audio only) between the patient (at the originating site) and the provider (at the distant site) was utilized to provide this telehealth service. Verbal consent was requested and obtained from EDMOND LAMA on this date, 07/08/2020 10:00 AM , for a telehealth visit. A telephone visit was completed for this encounter. CHIEF COMPLAINT: Rectal bleeding, hemorrhoids History of Present [id number] - Year old male presents today via telephone encounter for evaluation of a 4 month history of intermittent bright red rectal bleeding following a bowel movement. Patient believes this may be secondary to hemorrhoids. He is not currently using any uqhp-ncf-zyfgxjw treatments for hemorrhoids. Bowel movements are daily with occasional bouts of loose stools or diarrhea. He denies abdominal pain or rectal pain. There has been no melena. He denies nausea, vomiting, changes in appetite, unexplained weight loss or fevers. He is taking Famotidine 20 mg daily for GERD, which has been working well with breakthrough heartburn experienced if eating ice cream in the ev (more content not included)... [employer] 04-02-2020 Note Patient Outreach (CO OCC3) EDMOND LAMA ([id number]) [address] [facility] Date Time Provider Department 04/02/20 LAKESHA SANCHEZ During your visit today, we recorded the following information about you: Allergies As of Date: 04/02/2020 Noted Allergy Reaction RFUTTWA-OZI-HIX REDUCTASE INHIBIT*01/20/2015 10 - Anaphylaxis 14 - Other: See Comments Comments: Muscle weakness Date Reviewed: 12/13/2017 Reviewed by: Lashae Burns) MORGAN Nunez - Fully Assessed Order(s):SARS-COVID VACCINE 1ST DOSE APPT [[id number]] Order #: [id number] FUTURE Prescriptions as of 04/02/2020 Sig: CINACALCET 60 MG TABLET Take 60 mg by mouth once nágel* VITAMIN B COMPLEX-VITAMIN C-F* Take 0.8 mg by mouth once carla* SEVELAMER CARBONATE 800 MG TA* Take 800 mg by mouth three ti* ROPINIROLE 0.25 MG TABLET Take 0.25 mg by mouth twice d* FERROUS SULFATE 325 MG (65 MG* Take 325 mg by mouth twice da* LABETALOL 300 MG TABLET Take 300 mg by mouth twice da* FUROSEMIDE 80 MG TABLET Take 80 mg by mouth once ángel* DILTIAZEM CR 360 MG CAP Take 360 mg by mouth once carla* ERGOCALCIFEROL (VITAMIN D2) 1* Take 50,000 Units by mouth on* ASPIRIN 81 MG CHEWABLE TABLET Take 81 mg by mouth once ángel* Problem List As Of Date 04/02/2020 Noted Resolved Pre-transplant evaluation for kidney transplant*12/01/2014 Obesity, Class I, BMI 30-34.9 [E66.9] 08/01/2017 Hyperlipidemia [E78.5] 08/01/2017 Essential hypertension [I10] 08/01/2017 S/P living-donor kidney transplantation [Z94.0] 08/01/2017 ADPKD (autosomal dominant polycystic kidney dis*08/01/2017 ESRD on dialysis (HCC) [N18.6, Z99.2] 08/01/2017 Encounter Status:Closed by SHENA PRODUSER on 04/06/20 [facility] Evaluation note Diagnosis Nonrheumatic aortic (valve) insufficiency Nonrheumatic aortic valve insufficiency Aortic valve disorders documented in this encounter [facility] Work Phone: Evaluation noteNo assessment information available [facility] Work Phone: Evaluation note* Diagnosis PAF (paroxysmal atrial fibrillation) Atrial fibrillation PAF (paroxysmal atrial fibrillation) Atrial fibrillation documented in [facility] encounter [facility] Diagnosis Paroxysmal atrial fibrillation- Primary Atrial fibrillation Hypertension, essential Unspecified essential hypertension [facility] Kidney replaced by transplant- Primary Abnormal blood chemistry Other abnormal blood chemistry Aftercare following organ transplant Immunosuppressed status Unspecified disorder of immune mechanism High risk medication use Encounter for long-term (current) use of other medications [facility] Primary hypertension- Primary Unspecified essential hypertension History of renal transplant Gastroesophageal reflux disease without esophagitis Esophageal reflux Statin intolerance PAF (paroxysmal atrial fibrillation) (CMS/HCC) (HCC) Atrial fibrillation [facility] Diagnosis Gastroesophageal reflux disease without esophagitis- Primary Esophageal reflux Primary hypertension Unspecified essential hypertension PAF (paroxysmal atrial fibrillation) (HCC) Atrial fibrillation Aortic valve insufficiency, etiology of cardiac valve disease unspecified Polycystic kidney disease Congenital polycystic kidney, unspecified type History of renal transplant Prostate cancer screening Special screening for malignant neoplasm of prostate Hyperlipidemia, unspecified hyperlipidemia type [facility]* Diagnosis PAF (paroxysmal atrial fibrillation) (HCC) Atrial fibrillation Dilatation of aortic sinus of Valsalva [facility]* Diagnosis Dilatation of aortic sinus of Valsalva- Primary PAF (paroxysmal atrial fibrillation) (HCC) Atrial fibrillation Aortic valve insufficiency, etiology of cardiac valve disease unspecified [facility] Diagnosis Paroxysmal atrial fibrillation (CMS/HCC) (HCC) Atrial fibrillation Dilated aortic root (CMS/HCC) (HCC) Thoracic aneurysm without mention of rupture [facility] Diagnosis PAF (paroxysmal atrial fibrillation) (HCC) Atrial fibrillation Dilatation of aortic sinus of Valsalva Aortic valve insufficiency, etiology of cardiac valve disease unspecified [facility] Diagnosis Chest pain, unspecified type [facility] Diagnosis Primary hypertension- Primary Unspecified essential hypertension Gout, unspecified cause, unspecified chronicity, unspecified site Prostate cancer screening Special screening for malignant neoplasm of prostate Polycystic kidney disease Congenital polycystic kidney, unspecified type Viral URI Acute upper respiratory infections of unspecified site Aortic valve insufficiency, etiology of cardiac valve disease unspecified PAF (paroxysmal atrial fibrillation) (HCC) Atrial fibrillation Chronic anticoagulation Encounter for long-term (current) use of anticoagulants History of renal [facility] Primary hypertension Unspecified essential hypertension [facility] Diagnosis Primary hypertension Unspecified essential hypertension [facility] Diagnosis Palpitations- Primary Nonrheumatic aortic valve insufficiency [facility] (narrative)No reason for referral information [facility]WKettering [facility] Work Phone: Reason for visit Narrative* Auth/Cert Specialty Diagnoses / Procedures Referred By Brennen raymond Referred To Contact Diagnoses PAF (paroxysmal atrial fibrillation) PAF (paroxysmal atrial fibrillation) [I48.0] Procedures MT COMPRE EP EVAL ABLTJ ATR FIB PULM VEIN ISOLATION ABLATION SCHED INTERCARDIAC A-FIB TRANSEPTAL BY PULM VEIN ISOLATION W/EP EVAL ([id number]) Referral ID Status Reason Start Date Expiration Date Visits Re quested Visits Authorized [id number] [facility] ([facility]ine) - Closed Specialty Diagnoses / Procedures Referred By Brennen raymond Referred To Contact Cardiology Diagnoses PAF (paroxysmal atrial fibrillation) (HCC) Dilatation of aortic sinus of Valsalva Aortic valve insufficiency, etiology of cardiac valve disease unspecified Procedures Transthoracic echocardiogram (TTE) complete with contrast, bubble, strain, and 3D PRN MT ECHO TTHRC R-T 2D W/WOM-MODE COMPL SPEC&COLR D MT TTE W OR WO FOL WCON,DOPPLER Ace Messina MD [address] [place] [address] [address] [place] [address] Phone: tel: fax: Referral ID Status Reason Start Date Expiration Date Visits Re quested Visits Authorized [id number] Closed 12/25/2023 12/24/2024 1 1 [facility] Summary Purpose Family History No Family History Records FoundUnknown Family Member Name Dates Details Denies Family history of mal ignant neoplasm of colon: Other(V16.0, Z80.0) Status: : Mother, Father Status:Active Relationship Condition Age at Onset Recorded Date/T carol Not Specified Polycystic kidney disease Unknown Advance Directives No Advanced Directives Records FoundDocuments on File Type Date Recorded 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 Advance Directives and Living Will Power of Molder Operator Latest Code Status on File Code Status Date Activated Date Inactivated Comments Full Code 10/09/2018 7:56 AM Full Code 07/20/2018 8:21 AM 07/22/2018 3:24 PM Documents on File Type Date Recorded 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 Advance Directives and Living Will Power of Molder Operator Latest Code Status on File Code Status Date Activated Date Inactivated Comments Full Code 10/09/2018 7:56 AM 10/09/2018 3:55 PM Full Code 07/20/2018 8:21 AM 07/22/2018 3:24 PM Latest Code Status on File Code Status Date Activated Date Inactivated Comments Full Code 07/20/2018 8:21 AM 07/22/2018 3:24 PM Latest Code Status on File Code Status Date Activated Date Inactivated Comments Full Code 07/20/2018 8:21 AM 07/22/2018 3:24 PM Documents on File Type Date Recorded 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 ACP-Advance Directive ACP-Power of Molder Operator Advance Directive Response Recorded Date/ Time Living Will Yes November 25 12:37pm Power of Molder Operator Yes November 25, 2020 12:37pm Latest Code Status on File Code Status Date Activated Date Inactivated Comments Full Code 07/06/2021 4:58 PM Full Code 08/01/2019 2:10 PM 07/06/2021 4:58 PM Latest Code Status on File Code Status Date Activated Date Inactivated Comments Full Code 07/06/2021 4:58 PM Full Code 08/01/2019 2:10 PM 07/06/2021 4:58 PM Advance Directive Response Recorded Date/ Time Living Will Yes November 25 11:37am Power of Molder Operator Yes November 25, 2020 11:37am Discharge Instructions * Instructions* Yael Carias, HAYDEN - 10/09/2018 Fistula/Graft Recovery Instructions After Surgery: Your surgeon will give you specific instructions to follow, however, in general follow the steps listed below upon discharge. ? You may experience bruising, swelling, and discomfort in your leg(s). These symptoms can be expected. Pain medication will be prescribed at discharge. ? Keep the arm extended and elevated at the level of your heart. ? Place the arm on a pillow when lying down and when sitting. ? AVOID putting any pressure on the arm or swinging the arm. ? Rest, follow your diet, and take your prescription medications. ? Your surgeon may advise you to perform specific exercise, like squeezing a rubber ball, if so remember to do so. Incision Care: ? Keep the incision area clean and dry ? After 48 hours you may remove all the dressings except the Steri-strips directly over the incision; leave these intact. ? If Steri-Strips are directly over each incision, these may being to peel off at which time you may trim or remove them. ? If you are not currently on dialysis, you may bathe, allowing soap and water to clean the incision area, do not scrub. ? If you prefer, you may keep a clean bandage over the incision site to keep it from rubbing on clothes to prevent irritation. ? Look at the incisions daily to become familiar with any changes or concerns. ? After the swelling has gone down, you will be able to see the faint outline of the graft in your arm. By placing your fingertips over the graft, you will be able to feel the vibration (thrill) thatindicates blood is flowing. Pain Medication: ? You will be prescribed pain medication after your procedure at the time of discharge. ? Take as prescribed. ? Do Not Drive while taking a prescription pain medication. ? Please note that constipation is a side effect of prescription pain medication and using a stool softener may reduce constipation. ? Call a day prior to running out of pain medication. There will be NO REFILLS on pain medication after office hours (M-F 8:30a-5:00p). Have your medication bottle available to confirm medication, dosage, and Rx number and phone number of the pharmacy. Follow-Up: ? The office nurse will try to call you the day after your surgery to schedule your 2 week follow-up appointment. ? Please call the office if you do not hear from the office nurse. When to call the Doctor: ? If you have an increase in swelling after the initial 48 hours ? Redness ? Bleeding ? Foul odor from the incision site. ? Coldness or numbness/weakness to the hand or fingers. Please call the office if you experience these symptoms or have any questions or concerns! documented in this encounter* Instructions* Bobbi Cook RN - 09/20/2018 Please bring your [facility] Surgical Information folder on the day of surgery. Please bring a photo ID and insurance information Do NOT take the following medications on the morning of surgery: Lasix TAKE the following medications the morning of your surgery: Labetalol You may take your prescription pain medications. You may take Tylenol (Acetaminophen) if needed forpain. No Motrin, Ibuprofen, or Advil 24 hours prior to surgery, or longer if instructed by your surgeon. No Aleve or Naprosyn 3 days prior to surgery, or longer if instructed by your surgeon. If you are on BLOOD THINNERS or ASPIRIN Additional instructions: NONE You will receive a reminder call the day before surgery with your Same Day Surgery arrival time. If you have specific questions, please call your surgeon. * Attachments The following attachments cannot be sent through Care Everywhere. * Hemodialysis Access: Pre-op (Swedish) documented in this encounter History of Present Illness * Yael Carias RN - 10/09/2018 1:54 PM EDT Pt ambulated with minimal assist gait and balance steady * Yael Carias RN - 10/09/2018 12:43 PM EDT Discharge instructions reviewed with pt and verbalize understanding * Yael Carias RN - 10/09/2018 11:57 AM EDT Pt arrived to PACU from OR. Pt ID verified. Monitors applied with alarms on. Vital signs stable. documented in this encounterThere may be information available, but it has not been provided by the sender. Assessments Diagnosis ESRD on dialysis (HCC)- Primary End stage renal disease Diagnosis Palpitations Diagnosis Grade 3 out of 6 intensity murmur Aortic dilatation (HCC) Aortic ectasia, unspecified site Chronic renal failure, stage 5 (HCC) Essential hypertension Unspecified essential hypertension ESRD on dialysis (HCC) End stage renal disease Procedure Findings Note OPERATIVE NOTE Edmond Lama 1960 DATE OF PROCEDURE: 10/09/2018 SURGEON: LIBBY SPIVEY M.D. CREATION OF LEFT BRACHIOCEPHALIC ARTERIOVENOUS FISTULA. ? Preoperative Diagnosis: End-stage renal disease requiring hemodialysis access. ? Postoperative Diagnosis: End-stage renal disease requiring hemodialysis access. ? Anesthesia: MAC. ? Estimated Blood Loss: 5 mL. ? Indications: The patient has a history of chronic kidney disease progressing to hemodialysis requirement. The patient is right- handed. Vein mapping was reviewed. The radial and brachial pulses are palpable. Risks and benefits of arteriovenous access surgery have been discussed. ? Description of Procedure: After informed consent, the patient was brought to the operating room and placed supine. After IV sedation had been administered, the left upper extremity was prepped and draped circumferentially in sterile fashion. IV Ancef was given prior to skin incision for antibiotic prophylaxis. Following infiltration of 1% lidocaine, a t (more content not included)... Reason for Referral Status Reason Specialty Diagnoses / Procedures Referred By Contact Referred To Contact Open Cardiology Diagnoses Palpitations Procedures Cardiac event monitor Markus Barclay MD [address] [place] [address] Status Reason Specialty Diagnoses / Procedures Referre d By Contact Referred To Contact Open Cardiology Diagnoses Grade 3 out of 6 intensity murmur Aortic dilatation (HCC) Chronic renal failure, stage 5 (HCC) Essential hypertension ESRD on dialysis (HCC) Procedures ECHO Complete 2D W Doppler W Color Fouzia Pool, [employer] WORK[employer] COMPENSATION COORDINATOR [address] [facility] [address] [place] [address] Status Reason Specialty Diagnoses / Procedures Referre d By Contact Referred To Contact Closed Cardiology Diagnoses Nonrheumatic aortic valve insufficiency Procedures ECHO Complete 2D W Doppler W Color Sarah Charles PA-C [address] [place] [address] Specialty Diagnoses / Procedures Referred By Contac t Referred To Contact Diagnoses PAF (paroxysmal atrial fibrillation) Procedures MOBILE CARDIAC TELEMETRY Amber Ryan, [employer]WORK[employer] COMPENSATION COORDINATOR [address] [place] [address] Referral ID Status Reason Start Date Expiration Date V isits Requested Visits Authorized [id number] New Request 07/06/2021 07/31/2022 1 1 Specialty Diagnoses / Procedures Referred By Contac t Referred To Contact Cardiology Diagnoses PAF (paroxysmal atrial fibrillation) (HCC) Dilatation of aortic sinus of Valsalva Procedures Transthoracic echocardiogram (TTE) complete with contrast, bubble, strain, and 3D PRN MT ECHO TTHRC R-T 2D W/WOM-MODE COMPL SPEC&COLR D MT TTE W OR WO SHADI ESQUIVEL Fatima, MD [address] [place] [address] [address] [place] [address] Referral ID Status Reason Start Date Expiration Date Visits Re quested Visits Authorized [id number] Closed 12/15/2022 12/15/2023 1 1 Specialty Diagnoses / Procedures Referred By Contac t Referred To Contact Cardiology Diagnoses Paroxysmal atrial fibrillation (CMS/HCC) (HCC) Dilated aortic root (CMS/HCC) (HCC) Procedures Transthoracic echocardiogram (TTE) complete with contrast, bubble, strain, and 3D PRN MT ECHO TTHRC R-T 2D W/WOM-MODE COMPL SPEC&COLR D MT TTE W OR WO SHADI ESQUIVEL Fatima, MD [address] [facility] [address] [place] [address] [facility] Non-Invasive Cardiology [address] [place] [phone] Referral ID Status Reason Start Date Expiration Date V isits Requested Visits Authorized [id number] Closed Perform Procedure 03/08/2022 06/05/2022 1 1 Chief Complaint Chief Complaint Description Start Date right shoulder pain Preliminary chief co mplaint data, not yet signed by the author as of Instructions Instruction Description Start Date CompletedPatient advised to follow-up with Primary Care Physician for BMI management. Review of System There may be information available, but it has not been provided by the sender. Chief Complaint and Reason for Visit Chief Complaint STANDING ORDER-Kidne y transplant status STANDING ORDER-Kidney transplant status S/O -Kidney transplant status- ADD ADDT ORDER 03/24 S/O -Kidney transplant status- Chief Complaint STANDING ORDER-Kidne y transplant status S/O -Kidney transplant status- ADD ADDT ORDER 03/24 S/O -Kidney transplant status- S/O -Kidney transplant status- Chief Complaint S/O -Kidney transpla nt status- S/O -Kidney transplant status- S/O -Kidney transplant status- Chief Complaint S/O -Kidney transpla nt status- S/O -Kidney transplant status- Additional Source Comments (unrecognized sect ion and content) No Status Records FoundNo Status Records FoundNo Status Records FoundNo Status Records FoundNo Status Records FoundNo Status Records FoundNo Status Records FoundNo Status Records FoundNo Status Records FoundNo Status Records FoundNo Status Records Found INFORMATION SOURCE (unrecogn ized section and content) DATE CREATED AUTHOR 08/01/2017 [facility] DATE CREATED AUTHOR AUTHOR'S ORGANIZ ATION 10/10/2018 [facility] DATE CREATED AUTHOR AUTHOR'S ORGANIZ ATION 10/12/2018 [facility] DATE CREATED AUTHOR AUTHOR'S ORGANIZ ATION 05/27/2020 [facility] DATE CREATED AUTHOR AUTHOR'S ORGANIZ ATION 07/09/2020 [facility] DATE CREATED AUTHOR AUTHOR'S ORGANIZ ATION 08/17/2020 [facility] DATE CREATED AUTHOR AUTHOR'S ORGANIZ ATION 02/15/2021 [facility] DATE CREATED AUTHOR AUTHOR'S ORGANIZ ATION 03/12/2021 [facility] DATE CREATED AUTHOR AUTHOR'S ORGANIZ ATION 12/08/2021 [facility] DATE CREATED AUTHOR AUTHOR'S ORGANIZ ATION 04/20/2024 [facility] DATE CREATED AUTHOR AUTHOR'S ORGANIZ ATION 08/08/2024 [facility] Reason for Visit (unrecogniz ed section and content) Reason For Visit Description New - 1st visit with practice Preliminary reason f or visit data, not yet signed by the author as of right shoulder pain Reason Comments Post Op Visit Reason Comments Kidney Recipient Follow-up Reason Comments Med Refill Reason Comments Follow-up Med check Reason Onset Date Comments Med Refill 12/22/2022 Reason Onset Date Comments Med Refill 02/02/2023 Reason Comments Follow-up 6 month med check Specialty Diagnoses / Procedures Referred By Contac t Referred To Contact Cardiology Diagnoses PAF (paroxysmal atrial fibrillation) (HCC) Dilatation of aortic sinus of Valsalva Procedures Transthoracic echocardiogram (TTE) complete with contrast, bubble, strain, and 3D PRN MT ECHO TTHRC R-T 2D W/WOM-MODE COMPL SPEC&COLR D MT TTE W OR WO SHADI ESQUIVEL Fatima, MD [address] [facility] [address] [place] [address] Referral ID Status Reason Start Date Expiration Date Visits Re quested Visits Authorized [id number] Closed 12/15/2022 12/15/2023 1 1 Reason Onset Date Comments Med Refill 05/30/2023 Reason Onset Date Comments Med Refill 06/28/2023 Reason Onset Date Comments Med Refill 12/06/2023 Reason Comments 1 Year Follow-up Atrial Fibrillation Specialty Diagnoses / Procedures Referred By Contac t Referred To Contact Cardiology Diagnoses Paroxysmal atrial fibrillation (CMS/HCC) (HCC) Dilated aortic root (CMS/HCC) (HCC) Procedures Transthoracic echocardiogram (TTE) complete with contrast, bubble, strain, and 3D PRN MT ECHO TTHRC R-T 2D W/WOM-MODE COMPL SPEC&COLR D MT TTE W OR WO SHADI ESQUIVEL Fatima, MD [address] [facility] [address] [place] [id number] [facility] Non-Invasive Cardiology [address] [place] [phone] Referral ID Status Reason Start Date Expiration Date V isits Requested Visits Authorized [id number] Closed Perform Procedure 03/08/2022 06/05/2022 1 1 Reason Comments Chest Pain Reason Comments 6 Month Follow-up Reason Onset Date Comments Reschedule 05/27/2024 Reason Comments Blood Pressure Check Reason Comments Follow-up 2 Month Atrial Fibrillation Other Aortic Root Aneursym Reason Onset Date Comments Other 08/06/2024 Refill Xarelto Reason Onset Date Comments Med Refill 08/06/2024 Goals (unrecognized section and content) Goals may be documented in a n alternate sectionGoals may be documented in an alternate sectionGoals may be documented in an alternate sectionGoals may be documented in an alternate sectionGoals may be documented in an alternate sectionGoals may be documented in an alternate sectionGoals may be documented in an alternate sectionGoals may be documented in an alternate sectionGoals may be documented in an alternate section Scheduled Active and Recently Administ ered Medications (unrecognized section and content) Medication Order 07/04/2021 07/05/2021 07/06/2021 aspirin chewable tablet 81 mg 81 mg, Oral, DAILY EVERY MORNING, First dose on Mon07/06/21 at 1700, Until Discontinued, Post-op/Post-Proc 1732 (Not Given - Pr ovider: Viki Silva RN - Reason: Other - Comment: hold till morning per PEDRO Clark) enalapril (VASOTEC) tablet 5 mg 5 mg, Oral, DAILY, First dose on Mon07/07/21 at 0900, Until Discontinued faMOTIdine (PEPCID) tablet 20 mg 20 mg, Oral, 2 TIMES DAILY, First dose on Mon07/06/21 at 2100, Until Discontinued 2099 (Canceled Entry - Provider: System Discharge - Comment: Automatically canceled at discontinue of medication order) metoprolol succinate (TOPROL-XL) tablet XL 50 mg 50 mg, Oral, 2 TIMES DAILY, First dose on Mon07/06/21 at 1700, Until Discontinued, Slow release product. Do not crush. Extended release can be cut in half. 1818 (Not Given - Pr ovider: Viki Silva RN - Reason: Other - Comment: HR 48 held per PEDRO Clark) mycophenolate sodium (MYFORTIC) tablet DR 360 mg 360 mg, Oral, EVERY 12 HOURS, First dose on Mon07/06/21 at 2100, Until Discontinued, Give on an empty stomach. Swallow tablet whole; do not split, crush, or chew. 2099 (Canceled Entry - Provider: System Discharge - Comment: Automatically canceled at discontinue of medication order) pantoprazole (PROTONIX) tablet DR 40 mg 40 mg, Oral, DAILY, First dose on Mon07/07/21 at 0900, Until Discontinued, Swallow whole; do not crush or chew., Indications: Prevention of esophageal injury after catheter ablation, Post-op/Post-Proc tacrolimus (PROGRAF) capsule 1 mg 1 mg, Oral, EVERY 12 HOURS, First dose on Mon07/06/21 at 2100, Until Discontinued, Do not split, break, crush, or open doses of this medication. Contact pharmacy if altered dose or route needed. Do not split, break, crush, or open doses of this medication. Contact pharmacy if altered dose or route needed. 2100 (Canceled Entry - Provider: System Discharge - Comment: Automatically canceled at discontinue of medication order) Continuous Medication Order 07/04/2021 07/05/2021 07/06/2021 sodium chloride 0.9% IV solution 500 mL Intravenous, at 10 mL/hr, CONTINUOUS, Starting on Mon07/06/21 at 0630, Until Mon07/06/21 at 2155, Start the morning of procedure., Pre-op/Pre-Proc 0644 ($$New Bag$$ - Provider: Viki Silva RN)1425 (Paused - Provider: MIKE Barksdale - Comment: Switch to gravity)1426 (Restarted - Provider: MIKE Barksdale)1612 (Stopped - Provider: MIKE Barksdale) PRN Medication Order 07/04/2021 07/05/2021 07/06/2021 acetaminophen (TYLENOL) tablet 325 mg 325 mg, Oral, EVERY 6 HOURS NEEDED, Starting on Mon07/06/21 at 1658, Until Mon07/06/21 at 2155, Mild Pain, Maximum dose of acetaminophen is 4000 mg from all sources in 24 hours., Post-op/Post-Proc HYDROmorphone (DILAUDID) injection 0.2 mg(Linked Group 1) 0.2 mg, Intravenous, EVERY 5 MINUTES NEEDED, Starting on Mon07/06/21 at 0717, Until Mon07/06/21 at 2155, Moderate Pain, Severe Pain, Use as initial dose. Higher dose may be administered if lower dose did not result in adverse effects (RR<10, decrease in level of consciousness) and was previously documented as ineffective. May give a total of 4mg in PACU., Recovery HYDROmorphone (DILAUDID) injection 0.2 mg 0.2 mg, Intravenous, EVERY 2 HOURS NEEDED, Starting on Mon07/06/21 at 1658, Until Mon07/06/21 at 2155, Severe Pain, Post-op/Post-Proc HYDROmorphone (DILAUDID) injection 0.5 mg(Linked Group 1) 0.5 mg, Intravenous, EVERY 5 MINUTES NEEDED, Starting on Mon07/06/21 at 0717, Until Mon07/06/21 at 2155, Moderate Pain, Severe Pain, Higher dose may be administered if lower dose did not result in adverse effects (RR<10, decrease in level of consciousness) and was previously documented as ineffective. Decrease back to lower dose if patient has adverse effects, or no PRN used in previous 30 minutes. May give a total of 4mg in PACU ., Recovery lidocaine (XYLOCAINE) 10 mg/mL injection (CANCELED) NEEDED, Starting on Mon07/06/21 at 1509, Until Mon07/06/21 at 1652, Intra-op/Intra-Proc 1509 (Given - Provid er: Azalea Leigh MD) magnesium oxide (MAG-OX) tablet 800 mg 800 mg, Oral, ADMINISTER DIRECTED, Starting on Mon07/06/21 at 1658, Until Mon07/06/21 at 215, See admin instructions, For Magnesium 1.6 - 2.0, give 800 mg of Magnesium oxide, Post-op/Post-Proc ondansetron 4mg/2ml (ZOFRAN) injection 4 mg 4 mg, Intravenous, ONCE NEEDED, 1 dose, Starting on Mon07/06/21 at 0717, Until Mon07/06/21 at 2154, Nausea / Vomiting, FIRST line antiemetic, Do not administer within 6 hours of intra-operative dose., Recovery ondansetron 4mg/2ml (ZOFRAN) injection 4 mg 4 mg, Intravenous, EVERY 4 HOURS NEEDED, Starting on Mon07/06/21 at 1658, Until Mon07/06/21 at 2155, Nausea / Vomiting, Post-op/Post-Proc 1818 (Given - Provid er: Viki Silva RN) oxyCODONE (ROXICODONE) tablet 5 mg(Linked Group 2) 5 mg, Oral, EVERY 4 HOURS NEEDED, Starting on Mon07/06/21 at 1658, Until Mon07/06/21 at 2154, Moderate Pain, Severe Pain, PRN for Moderate Pain. Use for Severe Pain if IV not available for use as initial dose. Higher dose may be administred if lower dose was previously documented as ineffective and did not result in adverse effects (RR<10, decrease in level of consciousness)., Post-op/Post-Proc oxyCODONE HCl (ROXICODONE) tablet 10 mg(Linked Group 2) 10 mg, Oral, EVERY 4 HOURS NEEDED, Starting on Mon07/06/21 at 165, Until Mon07/06/21 at 2154, Moderate Pain, Severe Pain, PRN for Moderate Pain. Use for Severe Pain if IV not available for use as initial dose. Higher dose may be administred if lower dose was previously documented as ineffective and did not result in adverse effects (RR<10, decrease in level of consciousness), Post-op/Post-Proc potassium chloride (K-DUR) tablet ER 20 mEq 20 mEq, Oral, ADMINISTER DIRECTED, Starting on Mon07/06/21 at 1657, Until Mon07/06/21 at 2154, See admin instructions, If Cr 2.0 - 2.5 mg/dL For Potassium less than 3.6, give 20 mEq Potassium Chloride orally, recheck in AM. If Cr greater than 2.5 mg/dL contact physician/LIP for Potassium less than 3.6 for replacement orders. If potassium is low please administer magnesium first if indicated, Post-op/Post-Proc potassium chloride (K-DUR) tablet ER 40-60 mEq 40-60 mEq, Oral, ADMINISTER DIRECTED, Starting on Mon07/06/21 at 1657, Until Mon07/06/21 at 2154, See admin instructions, If Cr less than 2.0 mg/dL 1. For Potassium 3.6 - 4.0, give 40 mEq of Potassium Chloride orally, recheck in the AM. 2. For Potassium less than 3.6, give 60 mEq Potassium Chloride orally, recheck in 8 hours. 3. If potassium is low please administer magnesium first if indicated., Post-op/Post-Proc sodium chloride 0.9% IV solution Intravenous, at 1 mL/hr, CONTINUOUS NEEDED, Starting on Mon07/06/21 at 1657, Until Mon07/06/21 at 2155, See administration instructions, Per pressure bag for all transduced lines., Post-op/Post-Proc Linked Groups Order Group 1: HYDROmorphone (DILAUDID) injection 0.2 mgJump to med 0.2 mg, Intravenous, EVERY 5 MINUTES NEEDED, Starting on Mon07/06/21 at 0717, Until Mon07/06/21 at 2155, Moderate Pain, Severe Pain
Use as initial dose. Higher dose may be administered if lower dose did not result in adverse effects (RR<10, decrease in level of consciousness) and was previously documented as ineffective. May give a total of 4mg in PACU.
Recovery Or HYDROmorphone (DILAUDID) injection 0.5 mgJump to med 0.5 mg, Intravenous, EVERY 5 MINUTES NEEDED, Starting on Mon07/06/21 at 0717, Until Mon07/06/21 at 2155, Moderate Pain, Severe Pain
Higher dose may be administered if lower dose did not result in adverse effects (RR<10, decrease in level of consciousness) and was previously documented as ineffective. Decrease back to lower dose if patient has adverse effects, or no PRN used in previous 30 minutes. May give a total of 4mg in PACU .
Recovery Group 2: oxyCODONE (ROXICODONE) tablet 5 mgJump to med 5 mg, Oral, EVERY 4 HOURS NEEDED, Starting on Mon07/06/21 at 1658, Until Mon07/06/21 at 2155, Moderate Pain, Severe Pain
PRN for Moderate Pain. Use for Severe Pain if IV not available for use as initial dose. Higher dose may be administred if lower dose was previously documented as ineffective and did not result in adverse effects (RR<10, decrease in level of consciousness).
Post-op/Post-Proc Or oxyCODONE HCl (ROXICODONE) tablet 10 mgJump to med 10 mg, Oral, EVERY 4 HOURS NEEDED, Starting on Mon07/06/21 at 1658, Until Mon07/06/21 at 2155, Moderate Pain, Severe Pain
PRN for Moderate Pain. Use for Severe Pain if IV not available for use as initial dose. Higher dose may be administred if lower dose was previously documented as ineffective and did not result in adverse effects (RR<10, decrease in level of consciousness)
Post-op/Post-Proc Care Teams (unrecognized sec tion and content) Cytologist Relationship Specialty Start Date End Date Minor Beasley, DO PCP - General Family Medicine 10/31/19 Azalea Leigh MD [address] [place] [address] PCP - Referring 1 Clinical Cardiac Electrophysiology 07/06/21 Bharath Madera MBBS [address] [place] [phone] PCP - Referring 2 Nephrology 07/06/21 Liane Grayson MD Internal Medicine 10/31/19 Cytologist Relationship Specialty Start Date End Date LuchoMinor garnett DO PCP - General Family Medicine 10/31/19 Azalea Leigh MD [address] [place] [address] PCP - Referring 1 Clinical Cardiac Electrophysiology 07/06/21 Bharath Madera MBBS [address] [place] [address] PCP - Referring 2 Nephrology 07/06/21 Liane Grayson MD Internal Medicine 10/31/19 Cytologist Relationship Specialty Start Date End Date DelfinMinor DO PCP - General Family Medicine 10/31/19 Azalea Leigh MD [address] [place] [address] PCP - Referring 1 Clinical Cardiac Electrophysiology 07/06/21 Bharath Madera MBBS [address] [place] [address] PCP - Referring 2 Nephrology 07/06/21 Liane Grayson MD Internal Medicine 10/31/19 Cytologist Relationship Specialty Start Date End Date Minor Beasley DO PCP - General Family Medicine 10/31/19 Azalea Leigh MD [address] [place] [address] PCP - Referring 1 Clinical Cardiac Electrophysiology 07/06/21 Bharath Madera MBBS [address] [place] [address] PCP - Referring 2 Nephrology 07/06/21 Liane Grayson MD Internal Medicine 10/31/19 Team Status: Active Member Role Status Dates No Primary Care Physician Family Provider Active Dr. Ramon Carrillo MD Primary Care Provider Active Team Status: Inactive Member Role Status Dates Minor MITCHELL Other Provider Active Dr. Ramon Carrillo MD Primary Care Provider Active Dr. Kosta Leal MD Other Provider Active LOUIE PLASENCIA Attending Provider, Referring Provid er Active Cytologist Relationship Specialty Start Date End Date Minor Beasley DO [address] [place] [phone] PCP - General 12/19/19 Cytologist Relationship Specialty Start Date End Date Minor Beasley DO [address] [place] [address] PCP - General 12/19/19 Cytologist Relationship Specialty Start Date End Date AmosMinor norwood, DO [address] [place] [address] PCP - General 12/19/19 Team Status: Active Member Role Status Dates Dr. Ramon Carrillo MD Primary Care Provider Active Dr. Kosta Leal MD Attending Provider, Referring Pr ovider Active Team Status: Inactive Member Role Status Dates Dr. Ramon Carrillo MD Primary Care Provider Active Dr. Kosta Leal MD Attending Provider, Referring Pr ovider Active Cytologist Relationship Specialty Start Date End Date Minor Beasley, DO [address] [place] [address] PCP - General 12/19/19 Cytologist Relationship Specialty Start Date End Date Minor Beasley, DO [address] [place] [address] PCP - General 12/19/19 Cytologist Relationship Specialty Start Date End Date Minor Beasley, DO [address] [place] [address] [place] [address] PCP - General 12/19/19 Cytologist Relationship Specialty Start Date End Date Minor Beasley, DO [address] [place] [phone] PCP - General 12/19/19 Cytologist Relationship Specialty Start Date End Date Minor Beasley, DO [address] [place] [place] [phone] PCP - General 12/19/19 Cytologist Relationship Specialty Start Date End Date Minor Beasley, [address] [place] [address] PCP - General 12/19/19 Cytologist Relationship Specialty Start Date End Date Minor Beasley DO [address] [place] [address] PCP - General 12/19/19 Cytologist Relationship Specialty Start Date End Date Minor Beasley, [address] [place] [address] PCP - General 12/19/19 Cytologist Relationship Specialty Start Date End Date Minor Beasley, [address] [place] [address] PCP - General 12/19/19 Cytologist Relationship Specialty Start Date End Date Minor Beasley DO [address] [place] [phone] PCP - General 12/19/19 Cytologist Relationship Specialty Start Date End Date Minor Beasley, [address] [place] [address] PCP - General 12/19/19 Cytologist Relationship Specialty Start Date End Date Minor Beasley, [address] [place] [phone] PCP - General 12/19/19 Cytologist Relationship Specialty Start Date End Date Minor Beasley, [address] [place] [address] PCP - General 12/19/19 Team Status: Inactive Member Role Status Dates Dr. Ramon Carrillo MD Primary Care Provider Active Start: April 03, 2024 End: April 03, 2024 Dr. Dilan Grayson MD Attending Provider Active Start: April 03, 2024 End: April 03, 2024 Dr. Dilan Grayson MD Referring Provider Active Start: April 03, 2024 End: April 03, 2024 Cytologist Relationship Specialty Start Date End Date Minor Beasley, [address] [place] [address] PCP - General 12/19/19 Cytologist Relationship Specialty Start Date End Date Minor Beasley, [address] [place] [address] PCP - General 12/19/19 Cytologist Relationship Specialty Start Date End Date Minor Beasley, [address] [place] [address] PCP - General 12/19/19 Cytologist Relationship Specialty Start Date End Date Minor Beasley, [address] [place] [address] PCP - General 12/19/19 Cytologist Relationship Specialty Start Date End Date Minor Beasley, [address] [place] [address] PCP - General 12/19/19 Cytologist Relationship Specialty Start Date End Date Minor Beasley, [address] [facility] [address] [place] [phone] PCP - General 12/19/19 FOR RECORDS PERTAINING TO PATIENTS WHO ARE OR HAVE BEEN ENROLLED IN A CHEMICAL DEPENDENCY/SUBSTANCEABUSE PROGRAM, SOME INFORMATION MAY BE OMITTED. This clinical summary was aggregated from multiple sources. Caution should be exercised in using it in the provision of clinical care. This summary normalizes information from multiple sources, and as a consequence, information in this document may materially change the coding, format and clinical context of patient data. In addition, data may be omitted in some cases. CLINICAL DECISIONS SHOULD BE BASED ON THE PRIMARY CLINICAL RECORDS. [facility] provides no warranty or guarantee of the accuracy or completeness of information in this document.
--- OUTSIDE RECORDS SUMMARY | 2024-10-29 07:35 | XMS RPT_ITS | CCD ---
Author Organization [facility]ini[facility] Care Team Providers Care Social Media Marketing Manager Name Role Phone LIBBY MENENDEZ Unavailable Unavailable LIBBY MENENDEZ Unavailable Unavailable Brittany Murillo Primary Care Provider Brittany Murillo Primary Care Provider Marina Arita MD Unavailable HILDA BUTLER, DR JOHNSON Attending Unavailable NONE, NONE Primary Care Unavailable NONE, NONE Consulting Unavailable HILDA BUTLER, DR JOHNSON Admitting Unavailable NONE, NONE Primary Care Unavailable NONE, NONE Consulting Unavailable HILDA BUTLER, DR JOHNSON Admitting Unavailable HILDA BUTLER, DR JOHNSON Attending Unavailable Luchoa, Minor F Unavailable [phone] Unavailable Unavailable Petrisoa , Minor F Primary Care Provider Petrisoa DO, Minor Primary Care Provider Renuka BUTLER, Liane Unavailable Denzel BUTLER, Azalea Unavailable [phone] Bhartah Garcia Unavailable AMOSLLA, MINOR Primary Care Unavailable [...] Luchoa DO, Minor F Primary Care Provider Ramon Carrillo Primary Care Unavailable Renuka, Dilan Referring Unavailable Renuka, Dilan Attending Unavailable Renuka, Dilan Attending Unavailable Ramon Carrillo Primary Care Unavailable Renuka, Aguilaryaprakas Referring Unavailable Gerardo BUTLER, Dr. Navarro Primary Care Provider Renuka BUTLER, Dr. Kong Attending Provider Renuka BUTLER, Dr. Kong Referring Provider PETRIA, [...] Reductase Inhibitors (Statins); Translations: [Statins] Drug Allergy [facility] Work Phone: nickel sulfate (1 source) nickel sulfate Drug Allergy 3 [facility] (1 source) Hmg-Coa Reductase Inhibitors (Statins); Translations: [ZOPLUCU-VFA-GO A REDUCTASE INHIBITORS] Propensity to adverse reactions (disorder) [facility] Repository (17 sources) Hmg-Coa Reductase Inhibitors (Statins) Propensity to adverse reactions to drug 6 [place], [place] (3 sources) Apyixtl-Yhn-Eqs Reductase Inhibitor; Translations: [Ribkjbe-Iio-Eq a Reductase Inhibitor] Allergy to substance 1 NEEDS FOLLOW-UP [facility] Repository (20 sources) HMG-CoA reductase inhibitor Drug Intolerance 6 Other [facility] (20 sources) nickel sulfate Drug Allergy 3 [facility] Medications Current Medications Medication Drug [...] PO DAILY November 25, 2020 12:00am ergocalciferol 74239 unt oral capsule (4 sources) Provitamin D2 Compound Start: 04-26-2015 take 1.25 mg by mouth every week vitamin D (ERGOCALCIFEROL) 1.25 MG (44730 UT) CAPS capsule Take 50,000 Units by mouth once a week 0 04/26/2015 Active Start: 04-26-2015 vitamin D (ERG OCALCIFEROL) 65033 UNITS CAPS capsule Indications: (SUN) once a [...] 10-23-2019 METOPROLOL SUC CINATE ER 25 MG [id number] 1 tablet daily METOPROLOL SUCCINATE [id number] Lynn Brice LPN End: 09-26-2022 take 1 tablet by mouth every twenty-four hours in the morning metoprolol succinate XL (Toprol-XL) 25 MG 24 hr tablet Take 50 mg by mouth in the morning and 50 mg in the evening. 0 09/26/2022 Discontinued (Therapy completed) take 2 tablets by mo [facility] twice daily metoprolol succinate 25 MG [...] Start: 11-25-2020 take 1 capsule by mo [facility] twice daily Magnesium Oxide 400 mg magnesium Capsule Active 400 mg PO TWICE A DAY November 25, 2020 12:00am Start: 10-23-2019 MAGNESIUM OXID E 400 (241.3 Mg) MG TABS 2 tablets every 12 hours MAGNESIUM OXIDE [id number] Lynn Brice TODDLER CAREGIVER Start: 08-23-2019 take 400 mg by mouth in the morning magnesium oxide (Mag-Ox) Take 400 mg by mouth in the morning and 400 mg in the evening. 08/23/2019 Active Start: 08-23-2019 [facility] magnesium oxide 400 (241.3 [...] 2 tablets every 12 hours MYCOPHENOLATE SODIUM [id number] Lynn Brice LPN take 720 mg by [...] 75 MG CAPS 1 capsule daily PREGABALIN [id number] Lynn Brice LPN rOPINIRole 0.25 mg oral tablet (5 sources) Nonergot Dopamine Agonist Start: 10-23-2019 ROPINIROLE HCL 0.25 MG TABS 2 tablets every 12 hours ROPINIROLE HCL [id number] Lynn Brice LPN take 1 tablet by [...] 800-160 MG TABS 1 tablet daily SULFAMETHOXAZOLE-TRIMETHOPRIM [id number] Lynn Brice LPN take 1 tablet by [...] morning and 1 capsule at night TACROLIMUS [id number] Lynn Brice LPN take 1 capsule by [...] source) Taking high risk medication; Translations: [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 [facility] 36on 07-12-2024 36 Recent Visits Date Type Provider Dept 05/13/24 Office Visit Minor Beasley DO [facility] 11/27/23 Office Visit Minor Beasley DO [facility] Showing recent visits within past 365 days [...] labs completed in chart? N/A None [facility] Office Visiton 06-26-2024 Follow-up visit [id number] Edmond Lama 1960 M Date Provider Department Center 06/26/2024 [id number] MESSINA [facility] None Family History Problem Relation Age [...] Grandfather Paternal Grandmother Paternal Grandfather Level of Service:63852 [place] OFFICE/OUTPATIENT ESTABLISHED HIGH MDM 40 MIN Reason for Visit and Comments: Follow-up [762805] - 2 Month Atrial Fibrillation [80] Other [0] - Aortic Root Aneursym [facility] Progress Noteon 06-26-2024 Progress Note [facility] Cardiology Note Visit type: New Chief Complaint: No chief complaint on file. History of Present Illness: Edmond Lama is a 64 y.o. 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 He has a history of aortic [...] than 10 ng/ml 05/2024 ESRD on dialysis ([facility]) 08/01/2017 LUE shunt- stopped 07/26 with second transplant Gastroesophageal reflux disease without esophagitis 10/28/201908/26 EGD per Smiley Liu H/O colonoscopy with polypectomy 08/2020 Dr. Elizabeth- due 5-10 yrs History of renal transplant 1996 and 2019 Hyperlipidemia 08/01/2017 statin intolerance- defers rx Hypertension 05/04/2015 PAF (paroxysmal atrial fibrillation) ([facility]LY [facility]) 10/28/2019 s/p ablation 06/27 at [facility], nml [...] HISTORY 07/22/2018 Removal peritoneal dialysis catheter at [facility] TONSILLECTOMY 1965 TRANSPLANT, KIDNEY, OPEN 1996 [facility] TRANSPLANT, KIDNEY, OPEN 07/2019 [facility] UPPER [...] Cardiovascular: N (more content not included)... [facility] Progress Noteon 06-07-2024 Progress Note Sent MyChart message Normal [facility] Progress Note The patient, Edmond Lama, identity [...] Provider Department Center 06/07/2024 9:00 AM SCHEDULE, [facility] 06/26/2024 2:20 PM Ace Messina MD [facility] None 11/12/2024 8:20 AM Minor Beasley DO [facility] Cc'd provider blood pressure readings? Yes [facility] Progress Note Blood pressure stabl e, no med changes necessary [facility] 36on 05-27-2024 36 Patient rescheduled for 06/07/24 at 9:00AM [facility] 36 Name of Caller: alysa baker Contact Reason for Appointment: Pt requesting to be rescheduled for the following week for his nurse visit on 06/10. Please advise. Office Name: nicholas salazar mc Medication Refills need, if any: / Medication Name: / [facility] 37on 05-13-2024 37 Rech BP 4 wks [facility] Office Visiton 05-13-2024 Follow-up visit [id number] Edmond Lama 1960 M Date Provider Department Center 05/13/2024 [id number] BEASLEY [facility] Family History Problem Relation Age of Onset [...] Grandfather Paternal Grandmother Paternal Grandfather Level of Service:47155 [place] OFFICE/OUTPATIENT ESTABLISHED MOD MDM 30 MIN Reason for Visit and Comments: 6 Month Follow-up [671] Normal [facility] Progress Noteon 05-13-2024 Progress Note [facility] [address] [facility] [id number] Visit type: Established Patient Reason [...] disease without esophagitis PAF (paroxysmal atrial fibrillation) (FORM[facility]LY [facility]) Hypertension History of renal transplant Dilatation of aortic sinus of Valsalva CRF (chronic renal failure) Aortic insufficiency Hyperlipidemia ESRD on dialysis ([facility]) Class 1 obesity ADPKD (autosomal dominant polycystic [...] HISTORY 07/22/2018 Removal peritoneal dialysis catheter at [facility] TONSILLECTOMY 1965 TRANSPLANT, KIDNEY, OPEN 1996 [facility] TRANSPLANT, KIDNEY, OPEN 07/2019 [facility] UPPER GASTROINTESTINAL ENDOSCOPY 08/2020 Dr Reis-mild GERD VENTRAL HERNIA REPAIR 2013 Family History Problem Relation Name Age of Onset Cerebral aneurysm Mother at age 55 Diabetes Father Dementia Father at age 82 No Known Problems Sister Pilar No Known Problems Brother Arjun No Known Problems Broth (more content not included)... [facility] 05-09-2024 I called and spoke mandi Garcia checking to see how is doing-he tells me he is feeling great-no chest pressure. We will have him keep f/up with Dr Messina in June, if any symptoms, please call and we can plan to arrange testing sooner. He was thankful for the call. [place] [id number] I called and LMOM as taylor patient to give me a call back to discuss if any further symptoms. If so, we will order testing. If not, we will have him keep f/up with Dr Messnia in June. Left number for office. [place] [id number] I called and spoke mandi Garcia; he was actually on a flight to [place] yesterday; he will be there through the [...] update. He was thankful for the call. [place] [id number] 36 LM requesting a call back to discuss pt's symptoms and need for further testing. [address] 04-26-[address] Patti horan ch atted today and reports ok for MRI and if needing to use dye for CT recommends giving 1 liter of IVF prior to scan. [facility] 36 JUAN Mcwilliams called back [...] number/best way to reach me today. [facility] 36 I called and spoke t o Dr Grayson's secretary of state; [place] is busy right now, but they will have her call back to further discuss patietn's situation/what types of dye can be used for cardiac testing. [facility] 36 ----- Message from MICHAEL Saldana CNP sent at 04/26/2024 8:24 AM EDT ----- Please call artificial cherry maker and see if would be ok to do these studies with dye. ----- Message ----- From: Ace Messina MD Sent: 04/25/2024 9:26 AM EDT To: MICHAEL Delarosa CNP I am thinking in terms of CAD related heart burn? Coronary CTA would be an option.. Would have to reach out to his artificial cherry maker if its ok to use contrast for [...] want me to order an MRI? [facility] ECG 12 leadon 04-24-2024 Sinus Bradycardia WITHIN NORMAL LIMITS [facility] ECG 12 leadOrdered By: Viky England on 04-24-2024 [facility] [employer] Work Phone: Office Visiton 04-24-2024 Follow-up visit [id number] Edmond Lama 1960 M Date Provider Department Center 04/24/2024 [id number] [facility] None Family History Problem Relation Age [...] Grandfather Paternal Grandmother Paternal Grandfather Level of Service:07759 [place] OFFICE/OUTPATIENT ESTABLISHED MOD MDM 30 MIN Reason for Visit and Comments: Chest Pain [866506] Normal [facility] Progress [facility] 04-24-2024 Progress Note [facility] Cardiology Note Visit type: Established Chief Complaint: Chief Complaint Patient presents with Chest Pain History of Present Illness: Edmond Lama is a 64 y.o. 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 He has a history of aortic [...] Valsalva 11/06/2018 Diverticulosis 2013 ESRD on dialysis ([facility]) 08/01/2017 LUE shunt- stopped 07/26 with second transplant Gastroesophageal reflux disease without esophagitis 10/28/201908/26 EGD per Smiley Liu H/O colonoscopy with polypectomy 08/2020 Dr. Elizabeth- due 5-10 yrs History of renal transplant 07/2019 and 2000 Hyperlipidemia 08/01/2017 statin intolerance- defers rx Hypertension 05/04/2015 PAF (paroxysmal atrial fibrillation) ([facility]) 10/28/2019 s/p ablation 06/27 at [facility] Polycystic [...] HISTORY 07/22/2018 Removal peritoneal dialysis catheter at [facility] TONSILLECTOMY 1965 TRANSPLANT, KIDNEY, OPEN 1996 [facility] TRANSPLANT, KIDNEY, OPEN 07/2019 [facility] UPPER [...] Rfl: metoprolol ta (more content not included)... [place] [id number] 04-19-2024 36 Noted; thank you. [place] [id number] Noted; thank you. [place] [phone] I called and spoke mandi Garcia relaying echocardiogram result note from Dr Messina. He verbalized understanding. He reports he recently had labs with nephrolog at [facility]; Dr Grayson and Cr was 1.2-we will request these. He denies shortness of breath, dizziness, palpitations, syncope. He reports chest pain once in awhile at rest; lasts about 5 minutes. He denies any other symptoms. I let him know I would reach out to Dr Messina for further advice. He was thankful for the call. [facility] 36on 04-17-2024 36 I called and LMOM re laying I was calling to go over echo results. Please give me a call back to discuss-left callback number for office. [facility] 36 ----- Message from Lynn [...] symptoms, he should let us know Normal [facility] US Heart TransthoracicOrdere d By: Philomena Wu on 04-16-2024 Aortic Arch 3.9 cm [facility] Work Phone: [phone] Aortic Sinus Valsalva 4.6 cm [facility] Work Phone: [phone] Aortic Sinus Valsalva Index 2.04 cm/m2 [facility] Work Phone: [phone] Aortic valve Mean systole pressure gradient by US.doppler derived full Bernoulli 21 mmHg [facility] Work Phone: [phone] Aortic valve Orifice area by US 3.8 cm2 [facility] Work Phone: [phone] Aortic valve Peak systolic flow by US.doppler 2.1 m/s [facility] Work Phone: [phone] AR Max Velocity PISA 4.3 m/s [facility] Work Phone: [phone] AR PHT 644.2 ms [facility] Work Phone: [phone] Ascending Aorta 4 cm [facility] Work Phone: [phone] Ascending Aorta Index 1.77 cm/m2 [facility] Work Phone: [phone] AV Area by Peak Velocity 1.5 cm2 [facility] Work Phone: [phone] AV Area by VTI 1.6 cm2 [facility] Work Phone: AV Peak Gradient 36 mmHg [facility] Work Phone: [phone] AV Peak Velocity 3 m/s [facility] Work Phone: AV Velocity Ratio 0.4 [facility] Work Phone: [phone] AV VTI 73.3 cm [facility] Work Phone: [phone] CELINA/BSA Peak Velocity 0.7 cm2/m2 [facility] Work Phone: CELINA/BSA VTI 0.7 cm2/m2 [facility] [employer] Work Phone: [phone] Est. RA Pressure 3 mmHg [facility] Work Phone: Fractional Shortening 2D 43 % 28 - 44 % [facility] [employer] Work Phone: [phone] Interpretation and review of laboratory results Abnormal [facility] Work Phone: [phone] IVC Diameter 1.4 cm [facility] Work Phone: [phone] IVSd 1.2 cm Abnormal 0.6 - 1.0 cm [facility] Work Phone: [phone] Diameter 4.8 cm [facility] [employer] Phone: [phone] LA Size Index 2.12 cm/m2 [facility] [address] Work Phone: [phone] LA Volume 2C 77 mL Abnormal 18 - 58 mL [facility] [employer] Phone: [phone] LA Volume 4C 78 mL Abnormal 18 - 58 mL [facility] [employer] Work Phone: [phone] LA Volume A/L 85 mL [facility] [address] Work Phone: [phone] LA Volume BP 80 mL Abnormal 18 - 58 mL [facility] [employer] Phone: [phone] LA Volume Index 2C 34 mL/m2 16 - 34 mL/m2 [facility] [employer] Phone: LA Volume Index 4C 35 mL/m2 Abnormal 16 - 34 mL/m2 [facility] [employer] Phone: [phone] LA Volume Index A/L 38 mL/m2 16 - 34 mL/m2 [facility] [employer] Work Phone: [phone] LA Volume Index BP 35 ml/m2 Abnormal 16 - 34 ml/m2 [facility] [employer] Phone: [phone] Left ventricular Ejection fraction by US.2D+Calculated by biplane method of disks 62 % 55 - 100 % [facility] [employer] Phone: LV E' Lateral Velocity 3 cm/s [facility] [employer] Work Phone: [phone] LV E' Septal Velocity 4 cm/s [facility] [employer] Work Phone: [phone] LV EDV A2C 223 mL [facility] Work Phone: [phone] LV EDV A4C 173 mL [facility] Work Phone: LV EDV BP 208 mL Abnormal 67 - 155 mL [facility] Work Phone: [phone] LV EDV Index A2C 99 mL/m2 [facility] Work Phone: LV EDV Index A4C 77 mL/m2 [facility] Work Phone: LV EDV Index BP 92 mL/m2 [facility] Work Phone: LV Ejection Fraction A2C 66 % [facility] Work Phone: LV Ejection Fraction A4C 61 % [facility] Work Phone: LV ESV A2C 76 mL [facility] Work Phone: LV ESV A4C 67 mL [facility] Work Phone: LV ESV BP 79 mL Abnormal 22 - 58 mL [facility] Work Phone: LV ESV Index A2C 34 mL/m2 [facility] Work Phone: LV ESV Index A4C 30 mL/m2 [facility] Work Phone: LV ESV Index BP 35 mL/m2 [facility] Fabiana [facility] Work Phone: LV Mass 2D 249.3 g Abnormal 88 - 224 g [facility] Work Phone: LV Mass 2D Index 110.3 g/m2 49 - 115 g/m2 [facility] Work Phone: LV RWT Ratio 0.36 [facility] Work Phone: [phone] LVIDd 5.6 cm 4.2 - 5.9 cm [facility] Work Phone: LVIDd Index 2.48 cm/m2 [facility] Work Phone: LVIDs 3.2 cm [facility] Work Phone: LVIDs Index 1.42 cm/m2 [facility] Work Phone: LVOT Cardiac Output 5.8 liter/mi nu te [facility] Work Phone: LVOT Diameter 2.2 cm [facility] Work Phone: LVOT Mean Gradient 3 mmHg [facility] Work Phone: LVOT Peak Gradient 6 mmHg [facility] Work Phone: LVOT Peak Velocity 1.2 m/s [facility] Work Phone: [phone] LVOT Stroke Volume Index 52.8 mL/m2 [facility] Work Phone: LVOT SV 119.3 ml [facility] Work Phone: LVOT VTI 31.4 cm [facility] Work Phone: [phone] LVOT:AV VTI Index 0.43 [facility] Work Phone: [phone] LVPWd 1 cm 0.6 - 1.0 cm [facility] Work Phone: [phone] RA Area 4C 48.5 mL [facility] Work Phone: RA Area 4C 46.4 mL [facility] Work Phone: RV Basal Dimension 3.4 cm [facility] Work Phone: RV Free Wall Peak S' 17 cm/s [facility] Work Phone: RV Longitudinal Dimension 7.2 cm [facility] Work Phone: RV Mid Dimension 2.5 cm [facility] alth Work Phone: RVSP 29 mmHg [facility] Work Phone: Sinotubular Junction 4.1 cm [facility] Work Phone: TAPSE 2.5 cm 1.7 cm [facility] Work Phone: TR Max Velocity 2.56 m/s [facility] Work Phone: TR Peak Gradient 26 mmHg [facility] Work Phone: [facility] Work Phone: [phone] US Heart [...] Tacrolimus (Bld) [Mass/Vol] 6.6 ng/mL Normal 5.0-20.0 [facility] Comment on above: Order Comment: Test( s) [id number] (FK506), Blood was developed and its performance characteristics determined by [employer]. It has not been cleared or approved [...] Please note reference interval change Performed at: [address] [id number] Senior Java Engineer: Neto Cullen MD, Phone: [phone] Performed By: #### L 509.1000, L500.3600, L3500.3200, L506.1001, L100.0500, L3380.1000, L501.0900 #### [facility] [address] [place], [address] BUN/creatinine ratioOrdered By: Dilan Grayson on 04-03-2024 Urea nitrogen/Creatinine [Mass ratio] 16.4 mg/mg 10-20 [facility] CBC-Complete Blood Cnt No Di ffon 04-03-2024 Erythrocyte distribution width (RBC) [Ratio] 12.6 % Normal 11.6-14.6 [facility] Comment on above: Performed By: #### L 509.1000, L500.3600, L3500.3200, L506.1001, L100.0500, L3380.1000, L501.0900 #### [facility] [address] [place] [place], [address] Hematocrit (Bld) [Volume fraction] 47.1 % Normal 40-54 [facility] Comment on above: Performed By: #### L 509.1000, L500.3600, L3500.3200, L506.1001, L100.0500, L3380.1000, L501.0900 #### [facility] [address] [place], [address] Hemoglobin (Bld) [Mass/Vol] 15.1 g/dL Normal 13.0-16.5 [facility] Comment on above: Performed By: #### L 509.1000, L500.3600, L3500.3200, L506.1001, L100.0500, L3380.1000, L501.0900 #### [facility] [address] [place], [address] MCH (RBC) [Entitic mass] 28.7 pg Normal 27.0-32.0 [facility] Comment on above: Performed By: #### L 509.1000, L500.3600, L3500.3200, L506.1001, L100.0500, L3380.1000, L501.0900 #### [facility] [address] [place], [address] MCHC (RBC) [Mass/Vol] 32.1 g/dL Normal 32-36 [facility] Comment on above: Performed By: #### L 509.1000, L500.3600, L3500.3200, L506.1001, L100.0500, L3380.1000, L501.0900 #### [facility] [address] [place], [address] MCV (RBC) [Entitic vol] 89.4 fL Normal 80-94 [facility] Comment on above: Performed By: #### L 509.1000, L500.3600, L3500.3200, L506.1001, L100.0500, L3380.1000, L501.0900 #### [facility] [address] [place], [address] Platelet mean volume (Bld) [Entitic vol] 10.1 fL Normal 6.2-12.0 [facility] Comment on above: Performed By: #### L 509.1000, L500.3600, L3500.3200, L506.1001, L100.0500, L3380.1000, L501.0900 #### [facility] [address] [place], [address] Platelets (Bld) [#/Vol] 187 10*3/uL Normal 150-450 [facility] Comment on above: Performed By: #### L 509.1000, L500.3600, L3500.3200, L506.1001, L100.0500, L3380.1000, L501.0900 #### [facility] [address] [place], [address] RBC (Bld) [#/Vol] 5.27 10*6/uL Normal 4.6-6.2 [facility] Comment on above: Performed By: #### L 509.1000, L500.3600, L3500.3200, L506.1001, L100.0500, L3380.1000, L501.0900 #### [facility] [address] [place], [address] RDW SD 40.9 fl Normal 35.1-43.9 [facility] Comment on above: Performed By: #### L 509.1000, L500.3600, L3500.3200, L506.1001, L100.0500, L3380.1000, L501.0900 #### [facility] [address] [place], [address] WBC (Bld) [#/Vol] 7.2 10*3/uL Normal 4.4-11.0 [facility] Comment on above: Performed By: #### L 509.1000, L500.3600, L3500.3200, L506.1001, L100.0500, L3380.1000, L501.0900 #### [facility] [address], [address] Carbon dioxide measurementOr dered By: Dilan Grayson on 04-03-2024 CO2 [Moles/Vol] 23.4 mmol/L 22.0-29.0 [facility] Chloride measurementOrdered By: Dilan Grayson on 04-03-2024 Chloride [Moles/Vol] 106 mmol/L 96-108 [facility] Creatinine Unsp time (U) [Ma ss/Vol]Ordered By: Dilan Grayson on 04-03-2024 Creatinine (U) [Mass/Vol] 109.00 mg/dL NO RANGE EST. [facility] Creatinine [Moles/Vol]Ordere d By: Dilan Grayson on 04-03-2024 Creatinine [Mass/Vol] 1.2 mg/dL 0.8-1.3 [facility] Erythrocyte distribution wid th ratioOrdered By: Dilan Grayson on 04-03-2024 Erythrocyte distribution width (RBC) [Ratio] 12.6 % 11.6-14.6 [facility] Erythrocyte distribution wid th standard deviationOrdered By: Dilan Grayson on 04-03-2024 Erythrocyte distribution width (RBC) [Entitic vol] 40.9 fL 35.1-43.9 [facility] GFR/1.73 sq M.predicted caridad g non-blacks MDRD (S/P/Bld) [Vol rate/Area]Ordered By: Dilan Grayson on 04-03-2024 Estimated GFR (MDRD) Non-Af Amer 68 >60 [facility] Comment on above: mL/min/1.73m2 CKD-EP I Creatinine Equation (2020) Hematocrit Auto (Bld) [Volum e fraction]Ordered By: Dilan Grayson on 04-03-2024 Hematocrit (Bld) [Volume fraction] 47.1 % 40-54 [facility] Hemoglobin measurementOrdere d By: Dilan Grayson on 04-03-2024 Hemoglobin (Bld) [Mass/Vol] 15.1 g/dL 13.0-16.5 [facility] Intact parathyroid hormone ( iPTH) measurementOrdered By: Dilan Grayson on 04-03-2024 Parathyroid Hormone (Intact) 119 pg/mL High 11-61 [facility] L506.1001on 04-03-2024 Vitamin D 25-OH 54.7 ng/mL Normal 30-100 [facility] Comment on above: Result Comment: Veronique min D Status Deficiency: <20 ng/mL (50nmol/L) Insufficiency: 20-30 ng/mL (50-75 nmol/L) Sufficiency: 30-100 ng/mL (75-250 nmol/L) Toxicity: >100 ng/mL (>250 nmol/L) Performed By: #### L 509.1000, L500.3600, L3500.3200, L506.1001, L100.0500, L3380.1000, L501.0900 #### [facility] [address], [place], [id number] MCV (mean corpuscular volume ) determinationOrdered By: Dilan Grayson on 04-03-2024 MCV (RBC) [Entitic vol] 89.4 fL 80-94 [facility] Mean corpuscular hemoglobin (MCH) determinationOrdered By: Dilan Grayson on 04-03-2024 MCH (RBC) [Entitic mass] 28.7 pg 27.0-32.0 [facility] Mean corpuscular hemoglobin concentration (MCHC) determinationOrdered By: Dilan Grayson on 04-03-2024 MCHC (RBC) [Mass/Vol] 32.1 g/dL 32-36 [facility] Mean platelet volume determi nationOrdered By: Dilan Grayson on 04-03-2024 Platelet mean volume (Bld) [Entitic vol] 10.1 fL 6.2-12.0 [facility] No Panel InformationOrdered By: Dilan Grayson on 04-03-2024 Vitamin D 25-Hydroxy 54.7 ng/mL 30-100 [facility] Comment on above: Vitamin D StatusDefi ciency: <20 ng/mL (50nmol/L)Insufficiency: 20-30 ng/mL (50-75 nmol/L)Sufficiency: 30-100 ng/mL (75-250 nmol/L)Toxicity: >100 ng/mL (>250 nmol/L) PTHINon 04-03-2024 PTH 119 pg/mL High 11-61 [facility] Comment on above: Performed By: #### L 509.1000, L500.3600, L3500.3200, L506.1001, L100.0500, L3380.1000, L501.0900 #### [facility] [address] [place], [address] Platelet countOrdered By: Aguilar Grayson on 04-03-2024 Platelets (Bld) [#/Vol] 187 10*3/uL 150-450 [facility] Prograf-FK506 TO [facility] 04-03-2024 PROGRAF,MAILED MAILED SPECIMEN Normal [facility] Comment on above: Order Comment: WRONG TEST Result Comment: WRON G TEST Performed By: #### L 509.1000, L500.3600, L3500.3200, L506.1001, L100.0500, L3380.1000, L501.0900 #### [facility] [address] [place], [address] Protein+Creatinine Ratio,Uri neon 04-03-2024 PROT:CRE RATIO 68 mg/g CRE Normal 0-200 [facility] Comment on above: Performed By: #### L 509.1000, L500.3600, L3500.3200, L506.1001, L100.0500, L3380.1000, L501.0900 #### [facility] [address] [place], [address] Protein (U) [Mass/Vol] 8 mg/dL Normal <=12 [facility] Comment on above: Performed By: #### L 509.1000, L500.3600, L3500.3200, L506.1001, L100.0500, L3380.1000, L501.0900 #### [facility] [address] [place], [address] UR CREAT 109.00 mg/dL Normal NO RANGE EST. [facility] Comment on above: Performed By: #### L 509.1000, L500.3600, L3500.3200, L506.1001, L100.0500, L3380.1000, L501.0900 #### [facility] [address] [place], [address] Protein/Creatinine (U) [Mass ratio]Ordered By: Dilan Grayson on 04-03-2024 Urine Protein/Creatinine Ratio 68 mg/g CRE 0-200 [facility] RBC Auto (Bld) [#/Vol]Ordere d By: Dilan Grayson on 04-03-2024 RBC (Bld) [#/Vol] 5.27 10*6/uL 4.6-6.2 [facility] Renal Profileon 04-03-2024 Albumin [Mass/Vol] 4.1 g/dL Normal 3.4-4.8 [facility] Comment on above: Performed By: #### L 509.1000, L500.3600, L3500.3200, L506.1001, L100.0500, L3380.1000, L501.0900 #### [facility] [address] [place], [address] BUN/CRE 16.4 RATIO Normal 10-20 [facility] Comment on above: Performed By: #### L 509.1000, L500.3600, L3500.3200, L506.1001, L100.0500, L3380.1000, L501.0900 #### [facility] [address] [place], [address] Calcium [Mass/Vol] 10.4 mg/dL Normal 7.6-11.0 [facility] Comment on above: Performed By: #### L 509.1000, L500.3600, L3500.3200, L506.1001, L100.0500, L3380.1000, L501.0900 #### [facility] [address] [place], [address] Chloride [Moles/Vol] 106 mmol/L Normal 96-108 [facility] Comment on above: Performed By: #### L 509.1000, L500.3600, L3500.3200, L506.1001, L100.0500, L3380.1000, L501.0900 #### [facility] [address] [place], [address] CO2 [Moles/Vol] 23.4 mmol/L Normal 22.0-29.0 [facility] Comment on above: Performed By: #### L 509.1000, L500.3600, L3500.3200, L506.1001, L100.0500, L3380.1000, L501.0900 #### [facility] [address] [place], [address] Creatinine [Mass/Vol] 1.2 mg/dL Normal 0.8-1.3 [facility] Comment on above: Performed By: #### L 509.1000, L500.3600, L3500.3200, L506.1001, L100.0500, L3380.1000, L501.0900 #### [facility] [address] [place], [address] GFR/1.73 sq M.predicted among non-blacks MDRD (S/P/Bld) [Vol rate/Area] 68 mL/min/{1.73_m2} Normal >60 [facility] Comment on above: Result Comment: mL/m in/1.73m2 CKD-EPI Creatinine Equation (2020) Performed By: #### L 509.1000, L500.3600, L3500.3200, L506.1001, L100.0500, L3380.1000, L501.0900 #### [facility] [address] [place], [address] Glucose [Mass/Vol] 103 mg/dL High 70-99 [facility] Comment on above: Performed By: #### L 509.1000, L500.3600, L3500.3200, L506.1001, L100.0500, L3380.1000, L501.0900 #### [facility] [address] [place], [address] Phosphate [Mass/Vol] 3.0 mg/dL Normal 2.7-4.5 [facility] Comment on above: Performed By: #### L 509.1000, L500.3600, L3500.3200, L506.1001, L100.0500, L3380.1000, L501.0900 #### [facility] [address] [place], [address] Potassium [Moles/Vol] 4.2 mmol/L Normal 3.3-5.1 [facility] Comment on above: Performed By: #### L 509.1000, L500.3600, L3500.3200, L506.1001, L100.0500, L3380.1000, L501.0900 #### [facility] [address] [place], [address] Sodium [Moles/Vol] 141 mmol/L Normal 133-145 [facility] Comment on above: Performed By: #### L 509.1000, L500.3600, L3500.3200, L506.1001, L100.0500, L3380.1000, L501.0900 #### [facility] [address] [place], [address] Urea nitrogen [Mass/Vol] 20 mg/dL High 4-19 [facility] Comment on above: Performed By: #### L 509.1000, L500.3600, L3500.3200, L506.1001, L100.0500, L3380.1000, L501.0900 #### [facility] [place], [address] Serum glucose measurement (m ass/volume)Ordered By: Dilan Grayson on 04-03-2024 Glucose [Mass/Vol] 103 mg/dL High 70-99 [facility] Serum or plasma albumin deya urement (mass/volume)Ordered By: Dilan Grayson on 04-03-2024 Albumin [Mass/Vol] 4.1 g/dL 3.4-4.8 [facility] Serum or plasma calcium deya urement (mass/volume)Ordered By: Dilan Grayson on 04-03-2024 Calcium [Mass/Vol] 10.4 mg/dL 7.6-11.0 [facility] Serum or plasma potassium me asurementOrdered By: Dilan Grayson on 04-03-2024 Potassium [Moles/Vol] 4.2 mmol/L 3.3-5.1 [facility] Serum or plasma sodium measu rement (moles/volume)Ordered By: Dilan Grayson on 04-03-2024 Sodium [Moles/Vol] 141 mmol/L 133-145 [facility] Serum or plasma urea nitroge n measurement (mass/volume)Ordered By: Dilan Grayson on 04-03-2024 Urea nitrogen [Mass/Vol] 20 mg/dL High 4-19 [facility] Serum phosphorus measurement Ordered By: Dilan Grayson on 04-03-2024 Phosphorus Level 3.0 mg/dL 2.7-4.5 [facility] Tacrolimus levelOrdered By: Dilan Grayson on 04-03-2024 Tacrolimus (Prograf) Level 6.6 ng/mL 5.0-20.0 [facility] Comment on above: Target steady state trough [...] technology Please note reference interval changePerformed at: [address] [id number] Director: Neto Cullen MD, Phone: [phone] Urine protein measurement (m ass/volume)Ordered By: Dilan Grayson on 04-03-2024 Protein (U) [Mass/Vol] 8 mg/dL <=12 [facility] White blood cell (WBC) count Ordered By: Dilan Grayson on 04-03-2024 WBC (Bld) [#/Vol] 7.2 10*3/uL 4.4-11.0 [facility] 36on 02-14-2024 36 CBC and BMP at nephr oly 09/26/23: Hematocrit (Bld) [Volume fraction] 49.8 % Normal 40-54 [facility] Comment on above: Performed By: #### L100.0500, L506.1000, L3380.1000, L500.3600, L509.1000, L3900.4000, L501.0900 #### [facility] [address] [place], [address] Hemoglobin (Bld) [Mass/Vol] 15.9 g/dL Normal 13.0-16.5 [facility] Comment on above: Performed By: #### L100.0500, L506.1000, L3380.1000, L500.3600, L509.1000, L3900.4000, L501.0900 #### [facility] [address] [place], [address] MCH (RBC) [Entitic mass] 28.4 pg Normal 27.0-32.0 [facility] Comment on above: Performed By: #### L100.0500, L506.1000, L3380.1000, L500.3600, L509.1000, L3900.4000, L501.0900 #### [facility] [address] [place], [address] MCHC (RBC) [Mass/Vol] 31.9 g/dL Low 32-36 [facility] Comment on above: Performed By: #### L100.0500, L506.1000, L3380.1000, L500.3600, L509.1000, L3900.4000, L501.0900 #### [facility] [address] [place], [address] MCV (RBC) [Entitic vol] 88.9 fL Normal 80-94 [facility] Comment on above: Performed By: #### L100.0500, L506.1000, L3380.1000, L500.3600, L509.1000, L3900.4000, L501.0900 #### [facility] [address] [place], [address] Platelet mean volume (Bld) [Entitic vol] 10.2 fL Normal 6.2-12.0 [facility] Comment on above: Performed By: #### L100.0500, L506.1000, L3380.1000, L500.3600, L509.1000, L3900.4000, L501.0900 #### [facility] [address] [place], [address] Platelets (Bld) [#/Vol] 200 10*3/uL Normal 150-450 [facility] Comment on above: Performed By: #### L100.0500, L506.1000, L3380.1000, L500.3600, L509.1000, L3900.4000, L501.0900 #### [facility] [address] [place], [address] RBC (Bld) [#/Vol] 5.60 10*6/uL Normal 4.6-6.2 [facility] Comment on above: Performed By: #### L100.0500, L506.1000, L3380.1000, L500.3600, L509.1000, L3900.4000, L501.0900 #### [facility] [address] [place], [address] RDW SD 40.1 fl Normal 35.1-43.9 [facility] Comment on above: Performed By: #### L100.0500, L506.1000, L3380.1000, L500.3600, L509.1000, L3900.4000, L501.0900 #### [facility] [address] [place], [address] WBC (Bld) [#/Vol] 6.6 10*3/uL Normal 4.4-11.0 [facility] Comment on above: Performed By: #### L100.0500, L506.1000, L3380.1000, L500.3600, L509.1000, L3900.4000, L501.0900 #### [facility] [address] [place], [address] PTHIN on 09-26-2023 PTH 214.1 pg/mL High 18.4-80.1 [facility] Comment on above: Performed By: #### L100.0500, L506.1000, L3380.1000, L500.3600, L509.1000, L3900.4000, L501.0900 #### [facility] [address] [place], [address] Protein+Creatinine Ratio,Urine on 09-26-2023 PROT:CRE RATIO 161 mg/g CRE Normal 0-200 [facility] Comment on above: Performed By: #### L100.0500, L506.1000, L3380.1000, L500.3600, L509.1000, L3900.4000, L501.0900 #### [facility] [address] [place], [address] Protein (U) [Mass/Vol] 17.9 mg/dL High <11.9 [facility] Comment on above: Performed By: #### L100.0500, L506.1000, L3380.1000, L500.3600, L509.1000, L3900.4000, L501.0900 #### [facility] [address] [place], [address] UR CREAT 111.00 mg/dL Normal NO RANGE EST. [facility] Comment on above: Performed By: #### L100.0500, L506.1000, L3380.1000, L500.3600, L509.1000, L3900.4000, L501.0900 #### [facility] [address] [place], [address] Renal Profile on 09-26-2023 Albumin [Mass/Vol] 3.5 g/dL Normal 3.2-5.0 [facility] Comment on above: Performed By: ## L100.0500, L506.1000, L3380.1000, L500.3600, L509.1000, L3900.4000, L501.0900 #### [facility] [address] [place], [address] BUN/CRE 17.3 RATIO Normal - [facility] Comment on above: Performed By: ## L100.0500, L506.1000, L3380.1000, L500.3600, L509.1000, L3900.4000, L501.0900 ## [facility] [address] [place], [address] CA,Total 10.0 mg/dL Normal 8.5-10.1 [facility] Comment on above: Performed By: ## L100.0500, L506.1000, L3380.1000, L500.3600, L509.1000, L3900.4000, L501.0900 ## [facility] (more content not included)... Normal [facility] 36on 02-01-2024 36 Recent Visits Date Type Provider Dept 11/27/23 Office Visit Minor Beasley, DO [facility] 04/06/23 Office Visit Minor Beasley DO [facility] Showing recent visits within past 365 days [...] labs completed in chart? N/A None [facility] 36on 01-05-2024 36 Recent Visits Date Type Provider Dept 11/27/23 Office Visit Minor Beasley, DO [facility] 04/06/23 Office Visit Minor Beasley, DO [facility] Showing recent visits within past 365 days [...] labs completed in chart? No None [facility] ECG 12 lead - CLINIC PERFORM EDon 12-25-2023 Start of ekg - run o f afib with conversion to sinus bradycardia with PAC and a non-conducted PAC [facility] Office Visiton 12-25-2023 Follow-up visit [id number] Edmond Lama 1960 M Date Provider Department Center 12/25/2023 [id number] None Family History Problem Relation Age [...] Grandfather Paternal Grandmother Paternal Grandfather Level of Service:35068 [place] OFFICE/OUTPATIENT ESTABLISHED HIGH MDM 40 MIN Reason for Visit and Comments: 1 Year Follow-up [670] Atrial Fibrillation [80] Normal [facility] Progress Noteon 12-25-2023 Progress Note [facility] Cardiology Note [...] obesity.He underwent PVI ablation on 07/06/2021 at [facility]. He has a history of aortic [...] HISTORY 07/22/2018 Removal peritoneal dialysis catheter at [facility] TONSILLECTOMY 1965 TRANSPLANT, KIDNEY, OPEN 1996 [facility] TRANSPLANT, KIDNEY, OPEN 07/2019 [facility] UPPER [...] and u (more content not included)... Normal [facility] 36on 12-06-2023 36 RX loaded Next ov 05/13/24 [facility] 36 Medication name: juan lapril (Vasotec) 5 MG tablet [[id number]] Medication dosage: 5 mg (Miligrams Monthly quantity [...] tab): 06.07.23 Updated/Validated preferred pharmacy: Yes [facility] [place] - [address] [place] [address] [place] [address] Patient instructed to contact the pharmacy prior to picking up the medication: N/A Normal [facility] Progress Noteon 11-27-2023 Progress Note [facility] - [address] [facility] [id number] Visit type: Established Patient Reason [...] disease without esophagitis PAF (paroxysmal atrial fibrillation) ([facility]) Hypertension History of renal transplant Dilatation of aortic sinus of Valsalva CRF (chronic renal failure) Aortic insufficiency Hyperlipidemia ESRD on dialysis ([facility]) Class 1 obesity ADPKD (autosomal dominant polycystic kidney disease) Statin intolerance Diverticulosis Gout H/O colonoscopy with polypectomy BMI 36.0-36.9,adult Social History Tobacco Use Smoking status: Never Smokeless tobacco: Never Substance Use Topics Alcohol use: Never Past Surgical History: Procedure Laterality Date CARDIAC ABLATION P ROCEDURE (HISTORICAL) 06/2021 at [facility] for At [facility] CHOLECYSTECTOMY [address] Reis-small polyp COLONOSCOPY W/ POLYPECTOMY 08/2020 Dr Reis-small polyp-due 5-10 yrs HX AV GRAFT CREATION Left 10/09/2018 [place] OTHER SURGICAL HISTORY exp lap for abd lymphocele drainage OTHER SURGICAL HISTORY 10/08/2015 Laparoscopic peritoneal dialysis catheter placement-Dr Arshad OTHER SURGICAL HISTORY 07/22/2018 Removal peritoneal dialysis catheter at [facility] TONSILLECTOMY 1965 TRANSPLANT, KIDNEY, OPEN 1996 [facility] TRANSPLANT, KIDNEY, OPEN 07/2019 [facility] UPPER [...] well. No edema. No skin breakdowns. Normal [facility] L3900.4000on 09-28-2023 BK Virus log10 TNP Normal . [facility] Comment on above: Order Comment: Test( s) [id number] (FK506), Bloodwas developed and its performance characteristicsdetermined by [employer]. It has not been cleared or approvedby the Food and Drug Administration. Performed By: #### L 509.1000, L500.3600, L3500.3200, L506.1001, L100.0500, L3380.1000, L501.0900 #### [facility] [address] [place], [place], [id number] (610 BK Virus, Quant Negative Normal Negative [facility] Comment on above: Order Comment: Test( s) [id number]-Jqvywitqcp (FK506), Bloodwas developed and its performance characteristicsdetermined by [employer]. It has not been cleared or approvedby the Food and Drug Administration. Result Comment: No B K DNA detected. The linear range of the assay is 22 - 100,000,000 IU/mL. Performed By: #### L 509.1000, L500.3600, L3500.3200, L506.1001, L100.0500, L3380.1000, L501.0900 #### [facility] [address] [place], [place], [id number] (665) Tacrolimus (Prograf)on 09-27 Tacrolimus (Bld) [Mass/Vol] 5.8 ng/mL Normal 2.0-20.0 [facility] Comment on above: Order Comment: Test( s) [id number] (FK506), Bloodwas developed and its performance characteristicsdetermined by [employer]. It has not been cleared or approvedby the Food and Drug Administration. Result Comment: Trou gh (immediately following transplant) 15.0 Trough (steady state, 2 weeks or more after transplant): 3.0 - 8.0 Performed by LC-MS/MS technology. Performed at: [address] [id number] Senior Java Engineer: Neto Cullen MD, Phone: [phone] Performed By: #### L 509.1000, L500.3600, L3500.3200, L506.1001, L100.0500, L3380.1000, L501.0900 #### [facility] [address] [place], [place], [id number] CBC-Complete Blood Cnt No Di ffon 09-26-2023 Erythrocyte distribution width (RBC) [Ratio] 12.3 % Normal 11.6-14.6 [facility] Comment on above: Performed By: #### L 100.0500, L506.1000, L3380.1000, L500.3600, L509.1000, L3900.4000, L501.0900 #### [facility] [address] [place], [place], [id number] ([phone] Hematocrit (Bld) [Volume fraction] 49.8 % Normal 40-54 [facility] Comment on above: Performed By: #### L 100.0500, L506.1000, L3380.1000, L500.3600, L509.1000, L3900.4000, L501.0900 #### [facility] [address] [facility] [place], [address] Hemoglobin (Bld) [Mass/Vol] 15.9 g/dL Normal 13.0-16.5 [facility] Comment on above: Performed By: #### L 100.0500, L506.1000, L3380.1000, L500.3600, L509.1000, L3900.4000, L501.0900 #### [facility] [address] [place], [address] MCH (RBC) [Entitic mass] 28.4 pg Normal 27.0-32.0 [facility] Comment on above: Performed By: #### L 100.0500, L506.1000, L3380.1000, L500.3600, L509.1000, L3900.4000, L501.0900 #### [facility] [address] [place], [address] MCHC (RBC) [Mass/Vol] 31.9 g/dL Low 32-36 [facility] Comment on above: Performed By: #### L 100.0500, L506.1000, L3380.1000, L500.3600, L509.1000, L3900.4000, L501.0900 #### [facility] [address] [place], [address] MCV (RBC) [Entitic vol] 88.9 fL Normal 80-94 [facility] Comment on above: Performed By: #### L 100.0500, L506.1000, L3380.1000, L500.3600, L509.1000, L3900.4000, L501.0900 #### [facility] [address] [place], [address] Platelet mean volume (Bld) [Entitic vol] 10.2 fL Normal 6.2-12.0 [facility] Comment on above: Performed By: #### L 100.0500, L506.1000, L3380.1000, L500.3600, L509.1000, L3900.4000, L501.0900 #### [facility] [address] [place], [address] Platelets (Bld) [#/Vol] 200 10*3/uL Normal 150-450 [facility] Comment on above: Performed By: #### L 100.0500, L506.1000, L3380.1000, L500.3600, L509.1000, L3900.4000, L501.0900 #### [facility] [address] [place], [address] RBC (Bld) [#/Vol] 5.60 10*6/uL Normal 4.6-6.2 [facility] Comment on above: Performed By: #### L 100.0500, L506.1000, L3380.1000, L500.3600, L509.1000, L3900.4000, L501.0900 #### [facility] [address] [place], [address] RDW SD 40.1 fl Normal 35.1-43.9 [facility] Comment on above: Performed By: #### L 100.0500, L506.1000, L3380.1000, L500.3600, L509.1000, L3900.4000, L501.0900 #### [facility] [address] [place], [address] WBC (Bld) [#/Vol] 6.6 10*3/uL Normal 4.4-11.0 [facility] Comment on above: Performed By: #### L 100.0500, L506.1000, L3380.1000, L500.3600, L509.1000, L3900.4000, L501.0900 #### [facility] [address] [place], [address] PTHINon 09-26-2023 PTH 214.1 pg/mL High 18.4-80.1 [facility] Comment on above: Performed By: #### L 100.0500, L506.1000, L3380.1000, L500.3600, L509.1000, L3900.4000, L501.0900 #### [facility] [address] [place], [address] Protein+Creatinine Ratio,Uri neon 09-26-2023 PROT:CRE RATIO 161 mg/g CRE Normal 0-200 [facility] Comment on above: Performed By: #### L 509.1000, L500.3600, L3500.3200, L506.1001, L100.0500, L3380.1000, L501.0900 #### [facility] [address] [place], [address] Protein (U) [Mass/Vol] 17.9 mg/dL High <11.9 [facility] Comment on above: Performed By: #### L 509.1000, L500.3600, L3500.3200, L506.1001, L100.0500, L3380.1000, L501.0900 #### [facility] [address] [place], [address] UR CREAT 111.00 mg/dL Normal NO RANGE EST. [facility] Comment on above: Performed By: #### L 509.1000, L500.3600, L3500.3200, L506.1001, L100.0500, L3380.1000, L501.0900 #### [facility] [address] [place], [address] Renal Profileon 09-26-2023 Albumin [Mass/Vol] 3.5 g/dL Normal 3.2-5.0 [facility] Comment on above: Performed By: #### L 100.0500, L506.1000, L3380.1000, L500.3600, L509.1000, L3900.4000, L501.0900 #### [facility] [address] [place], [address] BUN/CRE 17.3 RATIO Normal 10-20 [facility] Comment on above: Performed By: #### L 100.0500, L506.1000, L3380.1000, L500.3600, L509.1000, L3900.4000, L501.0900 #### [facility] [address] [place], [address] CA,Total 10.0 mg/dL Normal 8.5-10.1 [facility] Comment on above: Performed By: #### L 100.0500, L506.1000, L3380.1000, L500.3600, L509.1000, L3900.4000, L501.0900 #### [facility] [address] [place], [address] Chloride [Moles/Vol] 110 mmol/L High 98-107 [facility] Comment on above: Performed By: #### L 100.0500, L506.1000, L3380.1000, L500.3600, L509.1000, L3900.4000, L501.0900 #### [facility] [address] [place], [address] CO2 [Moles/Vol] 26.0 mmol/L Normal 21.0-32.0 [facility] Comment on above: Performed By: #### L 100.0500, L506.1000, L3380.1000, L500.3600, L509.1000, L3900.4000, L501.0900 #### [facility] [address] [place], [address] Creatinine [Mass/Vol] 1.10 mg/dL Normal 0.70-1.30 [facility] Comment on above: Result Comment: The validity of the calculated GFR GFRAA in patients over 70 years has not been determined. Clinical correlation is essential. Performed By: #### L 100.0500, L506.1000, L3380.1000, L500.3600, L509.1000, L3900.4000, L501.0900 #### [facility] [address] [place], [address] EST GFR - AA 87 mL/min Normal >60 [facility] Comment on above: Result Comment: Afri can Mauritanian GFR Calc Performed By: #### L 100.0500, L506.1000, L3380.1000, L500.3600, L509.1000, L3900.4000, L501.0900 #### [facility] [address] [place], [address] GFR/1.73 sq M.predicted among non-blacks MDRD (S/P/Bld) [Vol rate/Area] 72 mL/min/{1.73_m2} Normal >60 [facility] Comment on above: Result Comment: Non- GFR Calc Performed By: #### L 100.0500, L506.1000, L3380.1000, L500.3600, L509.1000, L3900.4000, L501.0900 #### [facility] [address] [place], [address] Glucose [Mass/Vol] 110 mg/dL High 74-106 [facility] Comment on above: Result Comment: Fast ing Glucose result from 100 to 125 mg/dL suggests IMPAIRED HOMEOSTASIS per A.D.A. criteria. Performed By: #### L 100.0500, L506.1000, L3380.1000, L500.3600, L509.1000, L3900.4000, L501.0900 #### [facility] [address] [place], [address] Phosphate [Mass/Vol] 2.4 mg/dL Low 2.5-4.9 [facility] Comment on above: Performed By: #### L 100.0500, L506.1000, L3380.1000, L500.3600, L509.1000, L3900.4000, L501.0900 #### [facility] [address] [place], [address] Potassium [Moles/Vol] 4.1 mmol/L Normal 3.5-5.1 [facility] Comment on above: Performed By: #### L 100.0500, L506.1000, L3380.1000, L500.3600, L509.1000, L3900.4000, L501.0900 #### [facility] [address] [place], [address] Sodium [Moles/Vol] 139 mmol/L Normal 136-145 [facility] Comment on above: Performed By: #### L 100.0500, L506.1000, L3380.1000, L500.3600, L509.1000, L3900.4000, L501.0900 #### [facility] [address] [place], [address] Urea nitrogen [Mass/Vol] 19 mg/dL High 7-18 [facility] Comment on above: Performed By: #### L 100.0500, L506.1000, L3380.1000, L500.3600, L509.1000, L3900.4000, L501.0900 #### [facility] [address] [place], [place], [id number] Vitamin D,25 Hydroxyon 09-25 Vitamin D 25-OH 77.6 ng/mL Normal [facility] Comment on above: Result Comment: Veronique min D 25(OH) Status Range Deficiency <20 ng/mL (50nmol/L) Insufficiency 20 - 30 ng/mL (50 - 75 nmol/L) Sufficiency 30 - 100 ng/mL (75 - 250 nmol/L) Toxicity >100 ng/mL (>250 nmol/L) Performed By: #### L 509.1000, L500.3600, L3500.3200, L506.1001, L100.0500, L3380.1000, L501.0900 #### [facility] [address] [place], [place], [id number] US Heart TransthoracicOrdere d By: Jenny Arceo on 04-10-2023 Aortic Sinus Valsalva 4.9 cm [facility] Work Phone: Aortic Sinus Valsalva Index 2.16 cm/m2 [facility] Work Phone: AR Max Velocity PISA 4.6 m/s [facility] Work Phone: [phone] AR PHT 586.0 ms [facility] Work Phone: [phone] Ascending Aorta 4.2 cm [facility] Work Phone: [phone] Ascending Aorta Index 1.85 cm/m2 [facility] Work Phone: [phone] AV Area by Peak Velocity 1.3 cm2 [facility] Work Phone: [phone] AV Area by VTI 1.4 cm2 [facility] Work Phone: [phone] AV AT 99.19 ms [facility] Work Phone: [phone] AV Mean Gradient 27 mmHg [facility] Work Phone: [phone] AV Mean Velocity 2.4 m/s [facility] Work Phone: [phone] AV Peak Gradient 47 mmHg [facility] Work Phone: [phone] AV Peak Velocity 3.4 m/s [facility] Work Phone: [phone] AV Velocity Ratio 0.35 [facility] Work Phone: [phone] AV VTI 73.2 cm [facility] Work Phone: [phone] CELINA/BSA Peak Velocity 0.6 cm2/m2 [facility] Work Phone: [phone] CELINA/BSA VTI 0.6 cm2/m2 [facility] Work Phone: [phone] E/E' Lateral 7.25 [facility] Work Phone: [phone] E/E' Ratio (Averaged) 9.43 [facility] Work Phone: [phone] E/E' Septal 11.60 [facility] Work Phone: [phone] EF BP 72 % 55 - 100 % [facility] Work Phone: [phone] Est. RA Pressure 3 mmHg [facility] Work Phone: [phone] Fractional Shortening 2D 40 % 28 - 44 % [facility] Work Phone: [phone] Interpretation and review of laboratory results Abnormal [facility] Work Phone: [phone] IVC Diameter 1.9 cm [facility] Work Phone: IVSd 1.1 cm Abnormal 0.6 - 1.0 cm [facility] Work Phone: [phone] LA Diameter 4.7 cm [facility] Work Phone: [phone] LA Size Index 2.07 cm/m2 [facility] Work Phone: LA Volume 2C 64 mL Abnormal 18 - 58 mL [facility] Work Phone: [phone] LA Volume 4C 61 mL Abnormal 18 - 58 mL [facility] Work Phone: [phone] LA Volume A/L 72 [facility] Work Phone: [phone] LA Volume Index 2C 28 mL/m2 16 - 34 mL/m2 [facility] [employer] Work Phone: [phone] LA Volume Index 4C 27 mL/m2 16 - 34 mL/m2 [facility] [employer] Work Phone: LA Volume Index A/L 32 mL/m2 16 - 34 mL/m2 [facility] [employer] Work Phone: [phone] LV E' Lateral Velocity 8 cm/s [facility] [employer] Work Phone: [phone] LV E' Septal Velocity 5 cm/s [facility] [employer] Work Phone: [phone] LV EDV A2C 127 mL [facility] [employer] Work Phone: LV EDV A4C 178 mL [facility] [employer] Work Phone: LV EDV BP 151 mL 67 - 155 mL [facility] Work Phone: LV EDV Index A2C 56 mL/m2 [facility] Work Phone: LV EDV Index A4C 78 mL/m2 [facility] Work Phone: LV EDV Index BP 67 mL/m2 [facility] Work Phone: LV Ejection Fraction A2C 74 % [facility] Work Phone: LV Ejection Fraction A4C 69 % [facility] [employer] Work Phone: LV ESV A2C 33 mL [facility] Work Phone: LV ESV A4C 55 mL [facility] Work Phone: [phone] LV ESV BP 43 mL 22 - 58 mL [facility] Work Phone: [phone] LV ESV Index A2C 15 mL/m2 [facility] Work Phone: [phone] LV ESV Index A4C 24 mL/m2 [facility] Work Phone: [phone] LV ESV Index BP 19 mL/m2 [facility] Work Phone: [phone] LV Mass 2D 213.9 g 88 - 224 g [facility] Work Phone: [phone] LV Mass 2D Index 94.2 g/m2 49 - 115 g/m2 [facility] Work Phone: [phone] LV RWT Ratio 0.38 [facility] Work Phone: [phone] LVIDd 5.3 cm 4.2 - 5.9 cm [facility] Work Phone: [phone] LVIDd Index 2.33 cm/m2 [facility] Work Phone: [phone] LVIDs 3.2 cm [facility] Work Phone: [phone] LVIDs Index 1.41 cm/m2 [facility] Work Phone: 95 LVOT Area 3.5 cm2 [facility] Work Phone: [phone] LVOT Cardiac Output 9.6 liter/mi nu te [facility] Work Phone: [phone] LVOT Diameter 2.1 cm [facility] Work Phone: [phone] LVOT Mean Gradient 4 mmHg [facility] Work Phone: [phone] LVOT Peak Gradient 6 mmHg [facility] Work Phone: [phone] LVOT Peak Velocity 1.2 m/s [facility] Work Phone: [phone] LVOT Stroke Volume Index 43.3 mL/m2 [facility] Work Phone: [phone] LVOT SV 98.3 ml [facility] Work Phone: [phone] LVOT VTI 28.4 cm [facility] Work Phone: [phone] LVOT:AV VTI Index 0.39 [facility] Work Phone: [phone] LVPWd 1.0 cm 0.6 - 1.0 cm [facility] Work Phone: [phone] MV A Velocity 0.75 m/s [facility] Work Phone: [phone] MV E Velocity 0.58 m/s [facility] Work Phone: [phone] MV E Wave Deceleration Time 374.2 ms [facility] Work Phone: [phone] MV E/A 0.77 [facility] Work Phone: [phone] Pulm Vein Peak D Velocity 0.3 m/s [facility] Work Phone: [phone] Pulm Vein Peak S Velocity 0.6 m/s [facility] Work Phone: [phone] Pulm Vein S/D 2.0 [facility] Work Phone: [phone] PV Max Velocity 0.9 m/s [facility] Work Phone: [phone] PV Mean Gradient 2 mmHg [facility] Work Phone: [phone] PV Mean Velocity 0.6 m/s [facility] Work Phone: [phone] PV Peak Gradient 3 mmHg [facility] Work Phone: [phone] PV VTI 19.5 cm [facility] Work Phone: [phone] RV Free Wall Peak S' 15 cm/s [facility] Work Phone: [phone] RVSP 46 mmHg [facility] Work Phone: [phone] TAPSE 2.8 cm 1.7 cm [facility] Work Phone: [phone] TR Max Velocity 3.27 m/s [facility] Work Phone: [phone] TR Peak Gradient 43 mmHg [facility] Work [phone] [facility] Work Phone: [phone] US Heart Transthoracicon Left Ventricle: Left [...] Basophil percentage 2.7 mg/dL 2.5-4.9 [facility] Chloride [Moles/Vol] 110 mmol/L 98-[address] [facility] Glucose [Mass/Vol] 123 mg/dL 74-106 [facility] Comment on above: Fasting Glucose resu lt from 100 to 125 mg/dL suggests IMPAIRED HOMEOSTASIS per A.D.A. criteria. Hemoglobin (Bld) [Mass/Vol] 15.7 g/dL 13.0-16.5 [facility] Potassium [Moles/Vol] 4.0 mmol/L 3.5-5.1 [facility] Sodium [Moles/Vol] 141 mmol/L 136-145 [facility] WBC (Bld) [#/Vol] 5.9 10*3/uL 4.4-11.0 [facility] Determination of erythrocyte mean corpuscular volume (MCV)Ordered By: Kosta Leal on 03-31-2023 MCV (RBC) [Entitic vol] 89.3 fL 80-94 [facility] Erythrocyte distribution wid th ratioOrdered By: [facility] Mel on 03-31-2023 Erythrocyte distribution width (RBC) [Ratio] 12.7 % 11.6-14.6 [facility] Erythrocyte distribution wid th standard deviationOrdered By: Kosta Mel on 03-31-2023 Erythrocyte distribution width (RBC) [Entitic vol] 41.2 fL 35.1-43.9 [facility] Hematocrit Auto (Bld) [Volum e fraction]Ordered By: [facility] Mel on 03-31-2023 Hematocrit (Bld) [Volume fraction] 47.6 % 40-54 [facility] - Chemistry and C hemistry - challengeOrdered By: Kosta Mel on 03-31-2023 CO2 [Moles/Vol] 27.0 mmol/L 21.0-32.0 [facility] Urea nitrogen/Creatinine [Mass ratio] 13.3 mg/mg 10-20 [facility] - Hematology and Cell countsOrdered By: Kosta Mel on 03-31-2023 MCH (RBC) [Entitic mass] 29.5 pg 27.0-32.0 [facility] MCHC (RBC) [Mass/Vol] 33.0 g/dL 32-36 [facility] Platelet mean volume (Bld) [Entitic vol] 10.0 fL 6.2-12.0 [facility] Platelets (Bld) [#/Vol] 218 10*3/uL 150-450 [facility] No Panel InformationOrdered By: Kosta Leal on 03-31-2023 Estimated GFR (MDRD) Amer 84 mL/min >60 [facility] Comment on above: GFR Calc Estimated GFR (MDRD) Non-Af Amer 70 mL/min >60 [facility] Comment on above: Non- GFR Calc Parathyroid Hormone (Intact) 125.6 pg/mL 18.4-80.1 [facility] Vitamin D 25-Hydroxy 57.2 ng/mL [facility] Comment on above: Vitamin D 25(OH) Sta tus Range Deficiency <20 ng/mL (50nmol/L) Insufficiency 20 - 30 ng/mL (50 - 75 nmol/L) Sufficiency 30 - 100 ng/mL (75 - 250 nmol/L) Toxicity >100 ng/mL (>250 nmol/L) RBC Auto (Bld) [#/Vol]Ordere d By: Kosta Leal on 03-31-2023 RBC (Bld) [#/Vol] 5.33 10*6/uL 4.6-6.2 [facility] Serum or plasma calcium deya urement (mass/volume)Ordered By: Kosta Leal on 03-31-2023 Calcium [Mass/Vol] 10.4 mg/dL 8.5-10.1 [facility] Serum or plasma creatinine m easurement (mass/volume)Ordered By: Kosta Leal on 03-31-2023 Creatinine [Mass/Vol] 1.13 mg/dL 0.70-1.30 [facility] Comment on above: The validity of the calculated GFR & GFRAA in patients over 70 years has not been determined. Clinical correlation is essential. Serum or plasma urea nitroge n measurement (mass/volume)Ordered By: Kosta Leal on 03-31-2023 Urea nitrogen [Mass/Vol] 15 mg/dL 7-18 [facility] Thin prep Papanicolaou smear with manual screeningOrdered By: Kosta Leal on 03-31-2023 Protein (U) [Mass/Vol] 15.9 mg/dL 0.0-11.8 [facility] Thin prep Papanicolaou smear with manual screening 3.7 g/dL 3.2-5.0 [facility] Urine creatinine measurement (mass/volume)Ordered By: Kosta Leal on 03-31-2023 Creatinine (U) [Mass/Vol] 162.00 mg/dL NO RANGE EST. [facility] Urine protein/creatinine mas s ratioOrdered By: Kosta Mel on 03-31-2023 Protein/Creatinine (U) [Mass ratio] 98 mg/g CRE 0-200 [facility] Basophil percentageOrdered B y: Kosta Leal on 10-11-2022 Basophil percentage 2.5 mg/dL 2.5-4.9 [facility] Chloride [Moles/Vol] 112 mmol/L 98-107 [facility] Glucose [Mass/Vol] 128 mg/dL 74-106 [facility] Comment on above: Fasting Glucose resu lt greater than or equal to 126 mg/dL suggests DIABETES MELLITUS per A.D.A. criteria. Potassium [Moles/Vol] 4.3 mmol/L 3.5-5.1 [facility] Sodium [Moles/Vol] 142 mmol/L 136-145 [facility] WBC (Bld) [#/Vol] 7.1 10*3/uL 4.4-11.0 [facility] Blood erythrocytes count (nu mber/volume)Ordered By: Kosta Mel on 10-11-2022 RBC (Bld) [#/Vol] 5.27 10*6/uL 4.6-6.2 [facility] Blood hemoglobin measurement (mass/volume)Ordered By: Kosta Mel on 10-11-2022 Hemoglobin (Bld) [Mass/Vol] 15.4 g/dL 13.0-16.5 [facility] Blood platelet mean volumeOr dered By: [facility] Mel on 10-11-2022 Platelet mean volume (Bld) [Entitic vol] 9.9 fL 6.2-12.0 [facility] Determination of erythrocyte mean corpuscular volume (MCV)Ordered By: [facility] Mel on 10-11-2022 MCV (RBC) [Entitic vol] 90.7 fL 80-94 [facility] Hematocrit Auto (Bld) [Volum e fraction]Ordered By: Kosta Leal on 10-11-2022 Hematocrit (Bld) [Volume fraction] 47.8 % 40-54 [facility] - Chemistry and C hemistry - challengeOrdered By: Kosta Leal on 10-11-2022 CO2 [Moles/Vol] 26.0 mmol/L 21.0-32.0 [facility] Urea nitrogen/Creatinine [Mass ratio] 16.4 mg/mg 10-20 [facility] - Hematology and Cell countsOrdered By: Kosta Leal on 10-11-2022 Erythrocyte distribution width (RBC) [Entitic vol] 41.1 fL 35.1-43.9 [facility] Erythrocyte distribution width (RBC) [Ratio] 12.5 % 11.6-14.6 [facility] MCH (RBC) [Entitic mass] 29.2 pg 27.0-32.0 [facility] MCHC Auto (RBC) [Mass/Vol]Or dered By: Kosta Leal on 10-11-2022 MCHC (RBC) [Mass/Vol] 32.2 g/dL 32-36 [facility] No Panel InformationOrdered By: Kosta Leal on 10-11-2022 Estimated GFR (MDRD) Amer 77 mL/min >60 [facility] Comment on above: GFR Calc Estimated GFR (MDRD) Non-Af Amer 64 mL/min >60 [facility] Comment on above: Non- GFR Calc Parathyroid Hormone (Intact) 277.0 pg/mL 18.4-80.1 [facility] Tacrolimus (Prograf) Level 28.4 ng/mL 2.0-20.0 [facility] Comment on above: Trough (immediately following transplant) 15.0 Trough (steady state, 2 weeks or more after transplant): 3.0 - 8.0 Performed by LC-MS/MS technology.Patient drug level exceeds published reference range.Evaluate clinically for signs of potential toxicity.Performed at: [facility] [id number] Director: Neto Cullen MD, Phone: [phone] Urine Microalbumin/Creatini ne Ratio 3.5 mg/g CRE <30 [facility] Vitamin D 25-Hydroxy 44.2 ng/mL [facility] Comment on above: Vitamin D 25(OH) Sta tus Range Deficiency <20 ng/mL (50nmol/L) Insufficiency 20 - 30 ng/mL (50 - 75 nmol/L) Sufficiency 30 - 100 ng/mL (75 - 250 nmol/L) Toxicity >100 ng/mL (>250 nmol/L) Platelets bldOrdered By: Rafita [facility] Mel on 10-11-2022 Platelets (Bld) [#/Vol] 202 10*3/uL 150-450 [facility] Serum or plasma albumin deya urement (mass/volume)Ordered By: Kosta Mel on 10-11-2022 Albumin [Mass/Vol] 3.5 g/dL 3.2-5.0 [facility] Serum or plasma calcium deya urement (mass/volume)Ordered By: Kosta Leal on 10-11-2022 Calcium [Mass/Vol] 9.4 mg/dL 8.5-10.1 [facility] Serum or plasma creatinine m easurement (mass/volume)Ordered By: Kosta Leal on 10-11-2022 Creatinine [Mass/Vol] 1.22 mg/dL 0.70-1.30 [facility] Comment on above: The validity of the calculated GFR & GFRAA in patients over 70 years has not been determined. Clinical correlation is essential. Serum or plasma urea nitroge n measurement (mass/volume)Ordered By: Kosta Mel on 10-11-2022 Urea nitrogen [Mass/Vol] 20 mg/dL 7-18 [facility] Thin prep Papanicolaou smear with manual screeningOrdered By: Kosta Leal on 10-11-2022 Thin prep Papanicolaou smear with manual screening 5.6 mg/L NO RANGE EST. [facility] Urine creatinine measurement (mass/volume)Ordered By: Kosta Mel on 10-11-2022 Creatinine (U) [Mass/Vol] 158.00 mg/dL NO RANGE EST. [facility] Urine protein measurement (m ass/volume)Ordered By: Kosta Mel on 10-11-2022 Protein (U) [Mass/Vol] 20.9 mg/dL 0.0-11.8 [facility] Urine protein/creatinine mas s ratioOrdered By: Kosta Leal on 10-11-2022 Protein/Creatinine (U) [Mass ratio] 132 mg/g CRE 0-200 [facility] Absolute lymphocyte counton 05-26-2022 Lymphocytes Auto (Unsp spec) [#/Vol] 1.27 10*3/uL 0.83-4.51 [facility] Basophil percentageon 2022 Basophil percentage 2.5 mg/dL 2.5-4.9 [facility] Basophils/100 WBC (Bld) 0.9 % 0-1 [facility] Chloride [Moles/Vol] 112 mmol/L 98-107 [facility] Eosinophils/100 WBC (Bld) 1.4 % 0-5 [facility] Glucose [Mass/Vol] 117 mg/dL 74-106 [facility] Comment on above: Fasting Glucose resu lt from 100 to 125 mg/dL suggests IMPAIRED HOMEOSTASIS per A.D.A. criteria. Neutrophils (Bld) [#/Vol] 4.5 10*3/uL 2.0-7.7 [facility] Neutrophils/100 WBC (Bld) 64.9 % 47-70 [facility] Potassium [Moles/Vol] 3.9 mmol/L 3.5-5.1 [facility] Sodium [Moles/Vol] 138 mmol/L 136-145 [facility] WBC (Bld) [#/Vol] 7.0 10*3/uL 4.4-11.0 [facility] Blood erythrocytes count (nu mber/volume)on 05-26-2022 RBC (Bld) [#/Vol] 5.48 10*6/uL 4.6-6.2 [facility] Blood hemoglobin measurement (mass/volume)on 05-26-2022 Hemoglobin (Bld) [Mass/Vol] 15.8 g/dL 13.0-16.5 [facility] Blood lymphocytes/100 leukoc yteson 05-26-2022 Lymphocytes/100 WBC (Bld) 18.1 % 19-41 [facility] Blood monocytes/100 leukocyt eson 05-26-2022 Monocytes/100 WBC (Bld) 13.6 % 0-10 [facility] Blood platelet mean volumeon 05-26-2022 Platelet mean volume (Bld) [Entitic vol] 10.0 fL 6.2-12.0 [facility] Determination of erythrocyte mean corpuscular volume (MCV)on 05-26-2022 MCV (RBC) [Entitic vol] 90.7 fL 80-94 [facility] Hematocrit Auto (Bld) [Volum e fraction]on 05-26-2022 Hematocrit (Bld) [Volume fraction] 49.7 % 40-54 [facility] Laboratory - Chemistry and C hemistry - challengeon 05-26-2022 CO2 [Moles/Vol] 25.0 mmol/L 21.0-32.0 [facility] Magnesium [Mass/Vol] 1.7 mg/dL 1.6-2.6 [facility] Urea nitrogen/Creatinine [Mass ratio] 15.3 mg/mg 10-20 [facility] Laboratory - Hematology and Cell countson 05-26-2022 Erythrocyte distribution width (RBC) [Entitic vol] 41.2 fL 35.1-43.9 [facility] Erythrocyte distribution width (RBC) [Ratio] 12.5 % 11.6-14.6 [facility] Immature granulocytes/100 WBC (Bld) 1.100 % 0.0-0.9 [facility] Comment on above: IG% - Immature Granu locytes (promyelocytes, myelocytes and metamyelocytes) > 1% indicates that a LEFT SHIFT is Present. MCH (RBC) [Entitic mass] 28.8 pg 27.0-32.0 [facility] Nucleated RBC/100 WBC (Bld) [Ratio] 0 % 0-5 [facility] MCHC Auto (RBC) [Mass/Vol]on 05-26-2022 MCHC (RBC) [Mass/Vol] 31.8 g/dL 32-36 [facility] No Panel Informationon 05-26 Estimated GFR (MDRD) Amer 86 mL/min >60 [facility] Comment on above: GFR Calc Estimated GFR (MDRD) Non-Af Amer 71 mL/min >60 [facility] Comment on above: Non- GFR Calc Platelets bldon 05-26-2022 Platelets (Bld) [#/Vol] 197 10*3/uL 150-450 [facility] Serum or plasma calcium deya urement (mass/volume)on 05-26-2022 Calcium [Mass/Vol] 9.9 mg/dL 8.5-10.1 [facility] Serum or plasma creatinine m easurement (mass/volume)on 05-26-2022 Creatinine [Mass/Vol] 1.11 mg/dL 0.70-1.30 [facility] Comment on above: The validity of the calculated GFR & GFRAA in patients over 70 years has not been determined. Clinical correlation is essential. Serum or plasma urea nitroge n measurement (mass/volume)on 05-26-2022 Urea nitrogen [Mass/Vol] 17 mg/dL 7-18 [facility] Thin prep Papanicolaou smear with manual screeningon 05-26-2022 Thin prep Papanicolaou smear with manual screening 1 5-15 [facility] Absolute lymphocyte counton 03-24-2022 Lymphocytes Auto (Unsp spec) [#/Vol] 1.19 10*3/uL 0.83-4.51 [facility] Basophil percentageon 2022 Basophil percentage 2.3 mg/dL 2.5-4.9 [facility] Basophils/100 WBC (Bld) 1.0 % 0-1 [facility] Chloride [Moles/Vol] 111 mmol/L 98-107 [facility] Eosinophils/100 WBC (Bld) 2.5 % 0-5 [facility] Glucose [Mass/Vol] 123 mg/dL 74-106 [facility] Comment on above: Fasting Glucose resu lt from 100 to 125 mg/dL suggests IMPAIRED HOMEOSTASIS per A.D.A. criteria. Neutrophils (Bld) [#/Vol] 4.1 10*3/uL 2.0-7.7 [facility] Neutrophils/100 WBC (Bld) 65.5 % 47-70 [facility] Potassium [Moles/Vol] 4.0 mmol/L 3.5-5.1 [facility] Sodium [Moles/Vol] 144 mmol/L 136-145 [facility] WBC (Bld) [#/Vol] 6.3 10*3/uL 4.4-11.0 [facility] Blood erythrocytes count (nu mber/volume)on 03-24-2022 RBC (Bld) [#/Vol] 5.37 10*6/uL 4.6-6.2 [facility] Blood hemoglobin measurement (mass/volume)on 03-24-2022 Hemoglobin (Bld) [Mass/Vol] 15.3 g/dL 13.0-16.5 [facility] Blood lymphocytes/100 leukoc yteson 03-24-2022 Lymphocytes/100 WBC (Bld) 18.9 % 19-41 [facility] Blood monocytes/100 leukocyt eson 03-24-2022 Monocytes/100 WBC (Bld) 11.3 % 0-10 [facility] Blood platelet mean volumeon 03-24-2022 Platelet mean volume (Bld) [Entitic vol] 9.6 fL 6.2-12.0 [facility] Determination of erythrocyte mean corpuscular volume (MCV)on 03-24-2022 MCV (RBC) [Entitic vol] 91.6 fL 80-94 [facility] Hematocrit Auto (Bld) [Volum e fraction]on 03-24-2022 Hematocrit (Bld) [Volume fraction] 49.2 % 40-54 [facility] Laboratory - Chemistry and C hemistry - challengeon 03-24-2022 CO2 [Moles/Vol] 24.0 mmol/L 21.0-32.0 [facility] Magnesium [Mass/Vol] 1.8 mg/dL 1.6-2.6 [facility] Urea nitrogen/Creatinine [Mass ratio] 13.3 mg/mg 10-20 [facility] Laboratory - Hematology and Cell countson 03-24-2022 Erythrocyte distribution width (RBC) [Entitic vol] 42.5 fL 35.1-43.9 [facility] Erythrocyte distribution width (RBC) [Ratio] 12.7 % 11.6-14.6 [facility] Immature granulocytes/100 WBC (Bld) 0.800 % 0.0-0.9 [facility] Comment on above: IG% - Immature Granu locytes (promyelocytes, myelocytes and metamyelocytes) > 1% indicates that a LEFT SHIFT is Present. MCH (RBC) [Entitic mass] 28.5 pg 27.0-32.0 [facility] Nucleated RBC/100 WBC (Bld) [Ratio] 0 % 0-5 [facility] MCHC Auto (RBC) [Mass/Vol]on 03-24-2022 MCHC (RBC) [Mass/Vol] 31.1 g/dL 32-36 [facility] No Panel Informationon 03-24 Estimated GFR (MDRD) Amer 85 mL/min >60 [facility] Comment on above: GFR Calc Estimated GFR (MDRD) Non-Af Amer 70 mL/min >60 [facility] Comment on above: Non- GFR Calc Tacrolimus (Prograf) Level 5.4 ng/mL 2.0-20.0 [facility] Comment on above: Trough (immediately following transplant) 15.0 Trough (steady state, 2 weeks or more after transplant): 3.0 - 8.0 Performed by LC-MS/MS technology.Performed at: [facility] [address] [id number] Director: Neto Cullen MD, Phone: [phone] Platelets bldon 03-24-2022 Platelets (Bld) [#/Vol] 189 10*3/uL 150-450 [facility] Serum or plasma calcium deya urement (mass/volume)on 03-24-2022 Calcium [Mass/Vol] 9.7 mg/dL 8.5-10.1 [facility] Serum or plasma creatinine m easurement (mass/volume)on 03-24-2022 Creatinine [Mass/Vol] 1.13 mg/dL 0.70-1.30 [facility] Comment on above: The validity of the calculated GFR & GFRAA in patients over 70 years has not been determined. Clinical correlation is essential. Serum or plasma urea nitroge n measurement (mass/volume)on 03-24-2022 Urea nitrogen [Mass/Vol] 15 mg/dL 7-18 [facility] Thin prep Papanicolaou smear with manual screeningon 03-24-2022 Thin prep Papanicolaou smear with manual screening 9 5-15 [facility] Heart TransthoracicOrdere d By: Austin Tucker on 03-22-2022 Aortic Sinus Valsalva 4.9 cm [facility] Work Phone: Aortic Sinus Valsalva Index 2.17 cm/m2 [facility] Work Phone: [phone] AR Max Velocity PISA 3.8 m/s [facility] Work Phone: [phone] AR PHT 653.7 ms [facility] Work Phone: [phone] Ascending Aorta 4.1 cm [facility] Work Phone: [phone] Ascending Aorta Index 1.81 cm/m2 [facility] Work Phone: [phone] AV Area by Peak Velocity 1.8 cm2 [facility] Work Phone: [phone] AV Area by VTI 1.9 cm2 [facility] Work Phone: [phone] AV AT 138.41 ms [facility] Work Phone: [phone] AV Mean Gradient 16 mmHg [facility] Work Phone: [phone] AV Mean Velocity 1.9 m/s [facility] Work Phone: [phone] AV Peak Gradient 28 mmHg [facility] Work Phone: [phone] AV Peak Velocity 2.7 m/s [facility] Work Phone: [phone] AV Velocity Ratio 0.37 [facility] Work Phone: [phone] AV VTI 67.3 cm [facility] Work Phone: [phone] CELINA/BSA Peak Velocity 0.8 cm2/m2 [facility] Work Phone: [phone] CELINA/BSA VTI 0.8 cm2/m2 [facility] Work Phone: [phone] E/E' Lateral 17.00 [facility] Work Phone: [phone] E/E' Ratio (Averaged) 17.00 [facility] Work Phone: [phone] E/E' Septal 17.00 [facility] Work Phone: [phone] EF BP 66 % 55 - 100 % [facility] Work Phone: [phone] Fractional Shortening 2D 28 % 28 - 44 % [facility] Work Phone: [phone] Interpretation and review of laboratory results Abnormal [facility] Work Phone: [phone] IVC Diameter 2.7 cm [facility] Work Phone: IVSd 0.9 cm 0.6 - 1.0 cm [facility] Work Phone: [phone] LA Diameter 4.5 cm [facility] Work Phone: [phone] LA Size Index 1.99 cm[facility]2 [facility] Work Phone: LA Volume 2C 89 mL Abnormal 18 - 58 mL [facility] Work Phone: LA Volume 4C 113 mL Abnormal 18 - 58 mL [facility] Work Phone: [phone] LA Volume A/L 113 mL [facility] Work Phone: LA Volume Index 2C 39 mL/m2 Abnormal 16 - 34 mL/m2 [facility] Work Phone: [phone] LA Volume Index 4C 50 mL/m2 Abnormal 16 - 34 mL/m2 [facility] [employer] Work Phone: LA Volume Index A/L 50 mL/m2 16 - 34 mL/m2 [facility] Work Phone: LV E' Lateral Velocity 4 cm/s [facility] [employer] Work Phone: LV E' Septal Velocity 4 cm/s [facility] [employer] Work Phone: LV EDV A2C 118 mL [facility] Work Phone: LV EDV A4C 177 mL [facility] [employer] Work Phone: LV EDV BP 146 mL 67 - 155 mL [facility] Work Phone: LV EDV Index A2C 52 mL/m2 [facility] Work Phone: LV EDV Index A4C 78 mL/m2 [facility] Work Phone: LV EDV Index BP 65 mL/m2 [facility] Work Phone: LV Ejection Fraction A2C 62 % [facility] Work Phone: LV Ejection Fraction A4C 70 % [facility] [employer] Work Phone: LV ESV A2C 45 mL [facility] Work Phone: LV ESV A4C 52 mL [facility] Work Phone: [phone] LV ESV BP 50 mL 22 [...] 2D 180.1 g 88 - 224 g [facility] Work Phone: [phone] LV Mass 2D Index 79.7 g/m2 49 - 115 g/m2 [facility] Work Phone: [phone] LV RWT Ratio 0.33 [facility] Work Phone: [phone] LVIDd 5.4 cm 4.2 - 5.9 cm [facility] Work Phone: [phone] LVIDd Index 2.39 cm/m2 [facility] Work Phone: [phone] LVIDs 3.9 cm [facility] Work Phone: [phone] LVIDs Index 1.73 cm/m2 [facility] Work Phone: [phone] LVOT Area 4.9 cm2 [facility] Work Phone: [phone] LVOT Cardiac Output 6.2 liter/mi nu te [facility] Work Phone: [phone] LVOT Diameter 2.5 cm [facility] Work Phone: [phone] LVOT Mean Gradient 2 mmHg [facility] Work Phone: [phone] LVOT Peak Gradient 4 mmHg [facility] Work Phone: [phone] LVOT Peak Velocity 1.0 m/s [facility] Work Phone: [phone] LVOT Stroke Volume Index 58.8 mL/m2 [facility] Work Phone: [phone] LVOT SV 133.0 ml [facility] Work Phone: [phone] LVOT VTI 27.1 cm [facility] Work Phone: [phone] LVOT:AV VTI Index 0.40 [facility] Work Phone: [phone] LVPWd 0.9 cm 0.6 - 1.0 cm [facility] Work Phone: [phone] MV A Velocity 0.39 [facility] Work Phone: [phone] MV E Velocity 0.68 [facility]s [facility] Work Phone: [phone] MV E Wave Deceleration Time 211.7 ms [facility] Work Phone: [phone] MV E/A 1.74 [facility] Work Phone: [phone] RV [place] Peak S' 10 cm/s [facility] Work Phone: [phone] Sinotubular [place] 4.6 cm [facility] Work Phone: [phone] TAPSE 2.1 cm 1.7 cm [facility] Work Phone: [phone] TR Max Velocity 2.59 m/s [facility] Work Phone: [phone] TR Peak Gradient 27 mmHg [facility] Work Phone: [phone] [facility] Work Phone: [phone] Heart Transthoracicon Left Ventricle: Left ventricle [...] percentageon 2021 Basophil percentage 3.0 mg/dL 2.5-4.9 [facility] Work Phone: Chloride [Moles/Vol] 110 mmol/L 98-107 [facility] Work Phone: Glucose [Mass/Vol] 112 mg/dL 74-106 [facility] Work Phone: Comment on above: Fasting Glucose resu lt from 100 to 125 mg/dL suggests IMPAIRED HOMEOSTASIS per A.D.A. criteria. Potassium [Moles/Vol] 4.1 mmol/L 3.5-5.1 [facility] Work Phone: Sodium [Moles/Vol] 143 mmol/L 136-145 [facility] Work Phone: [phone] WBC (Bld) [#/Vol] 6.8 10*3/uL 4.4-11.0 [facility] Work Phone: [phone] Blood erythrocytes count (nu mber/volume)on 02-01-2022 RBC (Bld) [#/Vol] 5.26 10*6/uL 4.6-6.2 [facility] Work Phone: Blood hemoglobin measurement (mass/volume)on 02-01-2022 Hemoglobin (Bld) [Mass/Vol] 14.9 g/dL 13.0-16.5 [facility] Work Phone: Blood platelet mean volumeon 02-01-2022 Platelet mean volume (Bld) [Entitic vol] 10.1 fL 6.2-12.0 [facility] Work Phone: [phone] Determination of erythrocyte mean corpuscular volume (MCV)on 02-01-2022 MCV (RBC) [Entitic vol] 90.3 fL 80-94 [facility] Work Phone: [phone] Hematocrit Auto (Bld) [Volum e fraction]on 02-01-2022 Hematocrit (Bld) [Volume fraction] 47.5 % 40-54 [facility] Work Phone: Laboratory - Chemistry and C hemistry - challengeon 02-01-2022 CO2 [Moles/Vol] 26.0 mmol/L 21.0-32.0 [facility] Work Phone: [phone] Magnesium [Mass/Vol] 1.8 mg/dL 1.6-2.6 [facility] Work Phone: [phone] Urea nitrogen/Creatinine [Mass ratio] 20.8 mg/mg 10-20 [facility] Work Phone: [phone] Laboratory - Hematology and Cell countson 02-01-2022 Erythrocyte distribution width (RBC) [Entitic vol] 41.8 fL 35.1-43.9 [facility] Work Phone: [phone] Erythrocyte distribution width (RBC) [Ratio] 12.6 % 11.6-14.6 [facility] Work Phone: [phone] MCH (RBC) [Entitic mass] 28.3 pg 27.0-32.0 [facility] Work Phone: [phone] MCHC Auto (RBC) [Mass/Vol]on 02-01-2022 MCHC (RBC) [Mass/Vol] 31.4 g/dL 32-36 [facility] Work Phone: No Panel Informationon 02-01 Estimated GFR (MDRD) Amer 91 mL/min >60 [facility] Work Phone: [phone] Comment on above: GFR Calc Estimated GFR (MDRD) Non-Af Amer 75 mL/min >60 [facility] Work Phone: Comment on above: Non- GFR Calc Tacrolimus (Prograf) Level 6.5 ng/mL 2.0-20.0 [facility] Work Phone: Comment on above: Trough (immediately following transplant) 15.0 Trough (steady state, 2 weeks or more after transplant): 3.0 - 8.0 Performed by LC-MS/MS technology.Performed at: [facility] [id number] Director: Neto Cullen MD, Phone: [phone] Platelets bldon 02-01-2022 Platelets (Bld) [#/Vol] 208 10*3/uL 150-450 [facility] Work Phone: Serum or plasma calcium deya urement (mass/volume)on 02-01-2022 Calcium [Mass/Vol] 10.0 mg/dL 8.5-10.1 [facility] Work Phone: Serum or plasma creatinine m easurement (mass/volume)on 02-01-2022 Creatinine [Mass/Vol] 1.06 mg/dL 0.70-1.30 [facility] Work Phone: Comment on above: The validity of the calculated GFR & GFRAA in patients over 70 years has not been determined. Clinical correlation is essential. Serum or plasma urea nitroge n measurement (mass/volume)on 02-01-2022 Urea nitrogen [Mass/Vol] 22 mg/dL 7-18 [facility] Work Phone: Thin prep Papanicolaou smear with manual screeningon 02-01-2022 Thin prep Papanicolaou smear with manual screening 7 5-15 [facility] Work Phone: [phone] Basophil percentageon 2021 Basophil percentage 2.4 mg/dL 2.5-4.9 [facility] Work Phone: Chloride [Moles/Vol] 108 mmol/L 98-107 [facility] Work Phone: Glucose [Mass/Vol] 110 mg/dL 74-106 [facility] Work Phone: Comment on above: Fasting Glucose resu lt from 100 to 125 mg/dL suggests IMPAIRED HOMEOSTASIS per A.D.A. criteria. Potassium [Moles/Vol] 4.1 mmol/L 3.5-5.1 [facility] Work Phone: Sodium [Moles/Vol] 139 mmol/L 136-145 [facility] Work Phone: [phone] WBC (Bld) [#/Vol] 7.7 10*3/uL 4.4-11.0 [facility] Work Phone: [phone] Blood erythrocytes count (nu mber/volume)on 11-22-2021 RBC (Bld) [#/Vol] 5.37 10*6/uL 4.6-6.2 [facility] Work Phone: [phone] Blood hemoglobin measurement (mass/volume)on 11-22-2021 Hemoglobin (Bld) [Mass/Vol] 15.4 g/dL 13.0-16.5 [facility] Work Phone: [phone] Blood platelet mean volumeon 11-22-2021 Platelet mean volume (Bld) [Entitic vol] 9.9 fL 6.2-12.0 [facility] Work Phone: [phone] Determination of erythrocyte mean corpuscular volume (MCV)on 11-22-2021 MCV (RBC) [Entitic vol] 89.4 fL 80-94 [facility] Work Phone: [phone] Hematocrit Auto (Bld) [Volum e fraction]on 11-22-2021 Hematocrit (Bld) [Volume fraction] 48.0 % 40-54 [facility] Work Phone: [phone] Laboratory - Chemistry and C hemistry - challengeon 11-22-2021 CO2 [Moles/Vol] 22.0 mmol/L 21.0-32.0 [facility] Work Phone: [phone] Magnesium [Mass/Vol] 1.6 mg/dL 1.6-2.6 [facility] Work Phone: Urea nitrogen/Creatinine [Mass ratio] 19.5 mg/mg 11-25 [facility] Work Phone: [phone] Laboratory - Hematology and Cell countson 11-22-2021 Erythrocyte distribution width (RBC) [Entitic vol] 40.7 fL 35.1-43.9 [facility] Work Phone: [phone] Erythrocyte distribution width (RBC) [Ratio] 12.4 % 11.6-14.6 [facility] Work Phone: [phone] MCH (RBC) [Entitic mass] 28.7 pg 27.0-32.0 [facility] Work Phone: [phone] MCHC Auto (RBC) [Mass/Vol]on 11-22-2021 MCHC (RBC) [Mass/Vol] 32.1 g/dL 32-36 [facility] Work Phone: No Panel Informationon 11-22 Estimated GFR (MDRD) Amer 77 mL/min >60 [facility] Work Phone: Comment on above: GFR Calc Estimated GFR (MDRD) Non-Af Amer 64 mL/min >60 [facility] Work Phone: Comment on above: Non- GFR Calc Tacrolimus (Prograf) Level 7.0 ng/mL 2.0-20.0 [facility] Work Phone: Comment on above: Trough (immediately following transplant) 15.0 Trough (steady state, 2 weeks or more after transplant): 3.0 - 8.0 Performed by LC-MS/MS technology.Performed at: - [address] [id number] Director: Neto Cullen MD, Phone: [phone] Prostate Specific Antigen Screen 3.20 ng/mL 0.00-4.00 [facility] Work Phone: Comment on above: This test was perfor med using the TPSA assay method [facility]. Values obtained with differentassay methods cannot be used interchangably.When changing PSA assays in the course of monitoring apatient, additional sequential testing should be carriedout to confirm baseline values. Platelets bldon 11-22-2021 Platelets (Bld) [#/Vol] 215 10*3/uL 150-450 [facility] Work Phone: Serum or plasma calcium deya urement (mass/volume)on 11-22-2021 Calcium [Mass/Vol] 9.8 mg/dL 8.5-10.1 [facility] Work Phone: Serum or plasma creatinine m easurement (mass/volume)on 11-22-2021 Creatinine [Mass/Vol] 1.23 mg/dL 0.70-1.30 [facility] Work Phone: Comment on above: The validity of the calculated GFR & GFRAA in patients over 70 years has not been determined. Clinical correlation is essential. Serum or plasma urea nitroge n measurement (mass/volume)on 11-22-2021 Urea nitrogen [Mass/Vol] 24 mg/dL 7-18 [facility] Work Phone: Thin prep Papanicolaou smear with manual screeningon 11-22-2021 Thin prep Papanicolaou smear with manual screening 9 5-15 [facility] Work Phone: Basophil percentageon 2021 Basophil percentage 2.2 mg/dL 2.5-4.9 [facility] Work Phone: Chloride [Moles/Vol] 110 mmol/L 98-107 [facility] Work Phone: Glucose [Mass/Vol] 115 mg/dL 74-106 [facility] Work Phone: Comment on above: Fasting Glucose resu lt from 100 to 125 mg/dL suggests IMPAIRED HOMEOSTASIS per A.D.A. criteria. Potassium [Moles/Vol] 3.9 mmol/L 3.5-5.1 [facility] Work Phone: Sodium [Moles/Vol] 141 mmol/L 136-145 [facility] Work Phone: [phone] WBC (Bld) [#/Vol] 7.6 10*3/uL 4.4-11.0 [facility] Work Phone: Blood erythrocytes count (nu mber/volume)on 09-22-2021 RBC (Bld) [#/Vol] 5.54 10*6/uL 4.6-6.2 [facility] Work Phone: [phone] Blood hemoglobin measurement (mass/volume)on 09-22-2021 Hemoglobin (Bld) [Mass/Vol] 15.9 g/dL 13.0-16.5 [facility] Work Phone: [phone] Blood platelet mean volumeon 09-22-2021 Platelet mean volume (Bld) [Entitic vol] 9.8 fL 6.2-12.0 [facility] Work Phone: [phone] Determination of erythrocyte mean corpuscular volume (MCV)on 09-22-2021 MCV (RBC) [Entitic vol] 89.7 fL 80-94 [facility] Work Phone: [phone] Hematocrit Auto (Bld) [Volum e fraction]on 09-22-2021 Hematocrit (Bld) [Volume fraction] 49.7 % 40-54 [facility] Work Phone: [phone] Laboratory - Chemistry and C hemistry - challengeon 09-22-2021 CO2 [Moles/Vol] 24.0 mmol/L 21.0-32.0 [facility] Work Phone: [phone] Magnesium [Mass/Vol] 1.8 mg/dL 1.6-2.6 [facility] Work Phone: [phone] Urea nitrogen/Creatinine [Mass ratio] 13.8 mg/mg 10-20 [facility] Work Phone: [phone] Laboratory - Hematology and Cell countson 09-22-2021 Erythrocyte distribution width (RBC) [Entitic vol] 40.8 fL 35.1-43.9 [facility] Work Phone: [phone] Erythrocyte distribution width (RBC) [Ratio] 12.5 % 11.6-14.6 [facility] Work Phone: [phone] MCH (RBC) [Entitic mass] 28.7 pg 27.0-32.0 [facility] Work Phone: MCHC Auto (RBC) [Mass/Vol]on 09-22-2021 MCHC (RBC) [Mass/Vol] 32.0 g/dL 32-36 [facility] Work Phone: No Panel Informationon 09-22 Estimated GFR (MDRD) Amer 88 mL/min >60 [facility] Work Phone: Comment on above: GFR Calc Estimated GFR (MDRD) Non-Af Amer 73 mL/min >60 [facility] Work Phone: Comment on above: Non- GFR Calc Tacrolimus (Prograf) Level 7.2 ng/mL 2.0-20.0 [facility] Work Phone: Comment on above: Trough (immediately following transplant) 15.0 Trough (steady state, 2 weeks or more after transplant): 3.0 - 8.0 Performed by LC-MS/MS technology.Performed at: [employer] [id number] Director: Neto Cullen MD, Phone: [phone] Platelets bldon 09-22-2021 Platelets (Bld) [#/Vol] 239 10*3/uL 150-450 [facility] Work Phone: Serum or plasma calcium deya urement (mass/volume)on 09-22-2021 Calcium [Mass/Vol] 9.9 mg/dL 8.5-10.1 [facility] Work Phone: Serum or plasma creatinine m easurement (mass/volume)on 09-22-2021 Creatinine [Mass/Vol] 1.09 mg/dL 0.70-1.30 [facility] Work Phone: Comment on above: The validity of the calculated GFR & GFRAA in patients over 70 years has not been determined. Clinical correlation is essential. Serum or plasma urea nitroge n measurement (mass/volume)on 09-22-2021 Urea nitrogen [Mass/Vol] 15 mg/dL 7-18 [facility] Work Phone: [phone] Thin prep Papanicolaou smear with manual screeningon 09-22-2021 Thin prep Papanicolaou smear with manual screening 7 5-15 [facility] Work Phone: [phone] Absolute lymphocyte counton 07-22-2021 Lymphocytes Auto (Unsp spec) [#/Vol] 1.00 10*3/uL 0.83-4.51 [facility] Work Phone: [phone] Basophil percentageon 2021 Cholesterol [Mass/Vol] 175 mg/dL <200 [facility] Work Phone: [phone] Comment on above: <200 mg/dL Desirable 200-240 mg/dL Borderline >240 mg/dL High Risk Triglyceride [Mass/Vol] 461 mg/dL <199 [facility] Work Phone: [phone] Comment on above: The drugs N-Acetylcy steine and Metamizole may falsely depress this assay. TRIGLYCERIDE IS GREATER THAN 400 mg/dL. LDL RESULT IS INVALID AND WILL NOT BE REPORTED.Serum Triglycerides Reference Interval Normal <150 mg/dL Borderline high 150 - 199 mg/dL High 200 - 499 mg/dL Very High > or = 500 mg/dL Basophils/100 WBC (Bld) 0.7 % 0-1 [facility] Work Phone: Bilirubin [Mass/Vol] 0.40 mg/dL 0.20-1.00 [facility] Work Phone: [phone] Comment on above: For patients on eltr ombopag therapy, use of Dimension [place] TBIL is not recommended. Chloride [Moles/Vol] 110 mmol/L 98-107 [facility] Work Phone: Eosinophils/100 WBC (Bld) 1.6 % 0-5 [facility] Work Phone: [phone] Glucose [Mass/Vol] 106 mg/dL 74-106 [facility] Work Phone: [phone] Comment on above: Fasting Glucose resu lt from 100 to 125 mg/dL suggests IMPAIRED HOMEOSTASIS per A.D.A. criteria. Neutrophils (Bld) [#/Vol] 5.1 10*3/uL 2.0-7.7 [facility] Work Phone: Neutrophils/100 WBC (Bld) 73.1 % 47-70 [facility] Work Phone: Potassium [Moles/Vol] 4.4 mmol/L 3.5-5.1 [facility] Work Phone: Protein [Mass/Vol] 7.0 g/dL 6.4-8.2 [facility] Work Phone: Sodium [Moles/Vol] 139 mmol/L 136-145 [facility] Work Phone: WBC (Bld) [#/Vol] 7.0 10*3/uL 4.4-11.0 [facility] Work Phone: Blood erythrocytes count (nu mber/volume)on 07-22-2021 RBC (Bld) [#/Vol] 5.59 10*6/uL 4.6-6.2 [facility]: Blood hemoglobin measurement (mass/volume)on 07-22-2021 Hemoglobin (Bld) [Mass/Vol] 16.1 g/dL 13.0-16.5 [facility] Work Phone: Blood lymphocytes/100 leukoc yteson 07-22-2021 Lymphocytes/100 WBC (Bld) 14.2 % 19-41 [facility] Work Phone: Blood monocytes/100 leukocyt eson 07-22-2021 Monocytes/100 WBC (Bld) 9.4 % 0-10 [facility] Work Phone: Blood platelet mean volumeon 07-22-2021 Platelet mean volume (Bld) [Entitic vol] 9.5 fL 6.2-12.0 [facility] Work Phone: Determination of erythrocyte mean corpuscular volume (MCV)on 07-22-2021 MCV (RBC) [Entitic vol] 90.2 fL 80-94 [facility] Work Phone: Hematocrit Auto (Bld) [Volum e fraction]on 07-22-2021 Hematocrit (Bld) [Volume fraction] 50.4 % 40-54 [facility] Work Phone: Iron measurement (mass/mass) on 07-22-2021 Iron (Unsp spec) [Mass/Mass] 78 ug/dL 65-175 [facility] Work Phone: Comment on above: Slight Hemolysis, Re sult may be falsely increased. Laboratory - Chemistry and C hemistry - challengeon 07-22-2021 Transferrin [Mass/Vol] 173 mg/dL 177-329 [facility] Work Phone: Comment on above: Performed at: [place] [id number] Director: Holden Garcia PhD, Phone: [phone] ALP [Catalytic activity/Vol] 111 U/L 45-117 [facility] Work Phone: ALT [Catalytic activity/Vol] 24 U/L 16-61 [facility] Work Phone: [phone] CO2 [Moles/Vol] 23.0 mmol/L 21.0-32.0 [facility] Work Phone: Globulin (S) [Mass/Vol] 3.5 g/dL 2.2-4.2 [facility] Work Phone: [phone] Magnesium [Mass/Vol] 1.6 mg/dL 1.6-2.6 [facility] Work Phone: [phone] Urea nitrogen/Creatinine [Mass ratio] 15.9 mg/mg 10-20 [facility] Work Phone: Laboratory - Hematology and Cell countson 07-22-2021 Erythrocyte distribution width (RBC) [Entitic vol] 41.0 fL 35.1-43.9 [facility] Work Phone: [phone] Erythrocyte distribution width (RBC) [Ratio] 12.4 % 11.6-14.6 [facility] Work Phone: Immature granulocytes/100 WBC (Bld) 1.000 % 0.0-0.9 [facility] Work Phone: [phone] Comment on above: IG% - Immature Granu locytes (promyelocytes, myelocytes and metamyelocytes) > 1% indicates that a LEFT SHIFT is Present. MCH (RBC) [Entitic mass] 28.8 pg 27.0-32.0 [facility] Work Phone: [phone] Nucleated RBC/100 WBC (Bld) [Ratio] 0 % 0-5 [facility] Work Phone: [phone] MCHC Auto (RBC) [Mass/Vol]on 07-22-2021 MCHC (RBC) [Mass/Vol] 31.9 g/dL 32-36 [facility] Work Phone: [phone] Panel Informationon 07-22 Miscellaneous Test See comment [facility] Work Phone: [phone] Comment on above: TEST RESULT LIMITSBK V DNA, Quant PCR, Plasma Negative IU/mL Negative No BK DNA detected. The linear range of the assay is 22 - 100,000,000 IU/mL. TESTING PERFORMED AT [facility]. ORIGINAL REPORT ON FILE IN LAB CONTAINS ADDITIONAL TEST SITE INFORMATION. Total Iron Binding Capacity 302 ug/dL 250-450 [facility] Work Phone: [phone] Estimated GFR (MDRD) Amer 85 mL/min >60 [facility] Work Phone: [phone] Comment on above: GFR Calc Estimated GFR (MDRD) Non-Af Amer 70 mL/min >60 [facility] Work Phone: [phone] Comment on above: Non- GFR Calc Tacrolimus (Prograf) Level 7.4 ng/mL 2.0-20.0 [facility] Work Phone: Comment on above: Trough (immediately following transplant) 15.0 Trough (steady state, 2 weeks or more after transplant): 3.0 - 8.0 Performed by LC-MS/MS technology.Performed at: [employer] [id number] Director: Neto Cullen MD, Phone: [phone] Platelets bldon 07-22-2021 Platelets (Bld) [#/Vol] 193 10*3/uL 150-450 [facility] Work Phone: Serum or plasma albumin deya urement (mass/volume)on 07-22-2021 Albumin [Mass/Vol] 3.5 g/dL 3.2-5.0 [facility] Work Phone: Serum or plasma albumin/glob ulin mass ratioon 07-22-2021 Albumin/Globulin [Mass ratio] 1.0 {ratio} 0.9-2.4 [facility] Work Phone: Serum or plasma calcium deya urement (mass/volume)on 07-22-2021 Calcium [Mass/Vol] 10.6 mg/dL 8.5-10.1 [facility] Work Phone: Serum or plasma cholesterol in HDL measurement (mass/volume)on 07-22-2021 Cholesterol in HDL [Mass/Vol] 34 mg/dL >40 [facility] Work Phone: Comment on above: The drugs N-Acetylcy steine and Metamizole may falsely depress this assay. Reference Range HDL <40 mg/dL Low HDL Cholesterol HDL >or= 60 mg/dL High HDL Cholesterol Serum or plasma cholesterol in VLDL measurement (mass/volume)on 07-22-2021 Cholesterol in VLDL [Mass/Vol] TNP [facility] Work Phone: Comment on above: Test not performed Serum or plasma creatinine m easurement (mass/volume)on 07-22-2021 Creatinine [Mass/Vol] 1.13 mg/dL 0.70-1.30 [facility] Work Phone: Comment on above: The validity of the calculated GFR & GFRAA in patients over 70 years has not been determined. Clinical correlation is essential. Serum or plasma ferritin imani surement (mass/volume)on 07-22-2021 Ferritin [Mass/Vol] 801 ng/mL 26-388 [facility] Work Phone: Serum or plasma iron saturat ion measurement (mass fraction)on 07-22-2021 Iron saturation [Mass fraction] 25.8 % 15.0-55.0 [facility] Work Phone: Serum or plasma low density lipoprotein (LDL) cholesterol measurement (mass/volume)on 07-22-2021 Cholesterol in LDL [Mass/Vol] TNP [facility] Work Phone: Comment on above: Test not performed Serum or plasma urea nitroge n measurement (mass/volume)on 07-22-2021 Urea nitrogen [Mass/Vol] 18 mg/dL 7-18 [facility] Work Phone: Serum or plasma uric acid me asurement (mass/volume)on 07-22-2021 Urate [Mass/Vol] 6.5 mg/dL 3.5-7.2 [facility] Work Phone: Comment on above: The drugs N-Acetylcy steine and Metamizole may falsely depress this assay. Thin prep Papanicolaou smear with manual screeningon 07-22-2021 Thin prep Papanicolaou smear with manual screening 15 U/L 15-37 [facility] Work Phone: [phone] Thin prep Papanicolaou smear with manual screening 6 5-15 [facility] Work Phone: [phone] Urine creatinine measurement (mass/volume)on 07-22-2021 Creatinine (U) [Mass/Vol] 68.20 mg/dL NO RANGE EST. [facility] Work Phone: Urine protein measurement (m ass/volume)on 07-22-2021 Protein (U) [Mass/Vol] 12.9 mg/dL 0.0-11.8 [facility] Work Phone: [phone] Urine protein/creatinine mas s ratioon 07-22-2021 Protein/Creatinine (U) [Mass ratio] 189 mg/g CRE 0-200 [facility] Work Phone: EP PROCEDURE - EPS/ABLATION/ DEVICEon [...] in 3 months with Denzel or EP LABORATORY ENGINEER 6) Asymptomatic Event monitor in 2 months. 7) can be discharged same day, per pt's preference. Edmond Lama EP Procedure - EPS/Ablation/Device Ordering Physician: AZALEA LEIGH Order #: [id number] Study Date: 07/06/2021 Patient Information Name MRN Description Edmond Lama [id number] 61 y.o. male Physicians Panel Physicians Referring [...] in 3 months with [place] or EP LABORATORY ENGINEER 6) Asymptomatic Event monitor in 2 months. [...] irrigation cool (more content not included)... Normal [facility] ACT* LOW RANGE, POCon 2021 ACT-LR, POC 330 High [facility] ACT-LR, POC 394 High [facility] CBC AND ELECTRONIC DIFFon Basophils (Bld) [#/Vol] 10*3/uL Normal 0.00-0.09 [facility] Comment on above: Performed By: #### L [id number] #### [facility] (DEFAULT) [address] [address] Basophils/100 WBC (Bld) 0.5 % Normal [facility] Comment on above: Performed By: #### L [id number] #### [facility] (DEFAULT) [address] [address] DIFF STATUS Electronic Differential Normal [facility] Comment on above: Performed By: #### L [id number] #### [facility] (DEFAULT) [address] [place] [address] Eosinophils (Bld) [#/Vol] 0.14 10*3/uL Normal 0.00-0.48 [facility] Comment on above: Performed By: #### L [id number] #### [facility] (DEFAULT) [address] [address] Eosinophils/100 WBC (Bld) 2.3 % Normal [facility] Comment on above: Performed By: #### L [id number] #### [facility] (DEFAULT) [address] [place] [address] Hematocrit (Bld) [Volume fraction] 47.8 % Normal 39.6-48.8 [facility] Comment on above: Performed By: #### L [id number] #### [facility] (DEFAULT) [address] [address] Hemoglobin (Bld) [Mass/Vol] 15.8 g/dL Normal 13.4-16.8 [facility] Comment on above: Performed By: #### L [id number] #### [facility] (DEFAULT) [address] [address] Immature Grans % 0.8 % Normal [facility] Comment on above: Performed By: #### L [id number] #### [facility] (DEFAULT) [address] [address] Immature Grans Absolute 0.05 K/uL Normal <=0.08 [facility] Comment on above: Performed By: #### L [id number] #### [facility] (DEFAULT) [address] [address] Lymphocytes (Bld) [#/Vol] 0.93 10*3/uL Normal 0.83-3.57 [facility] Comment on above: Performed By: #### L [id number] #### [facility] (DEFAULT) [address] [address] Lymphocytes/100 WBC (Bld) 15.1 % Normal [facility] Comment on above: Performed By: #### L [id number] #### [facility] (DEFAULT) [address] [address] MCV (RBC) [Entitic vol] 88.8 fL Normal 79.0-94.5 [facility] Comment on above: Performed By: #### L [id number] #### [facility] (DEFAULT) [address] [address] Mean Cell Hgb 29.4 pg Normal 26.1-33.3 [facility] Comment on above: Performed By: #### L [id number] #### [facility] (DEFAULT) [address] [address] Mean Cell Hgb Conc 33.1 g/dL Normal 31.9-36.5 [facility] Comment on above: Performed By: #### L [id number] #### [facility] (DEFAULT) [address] [address] Monocytes (Bld) [#/Vol] 0.72 10*3/uL Normal 0.24-0.93 [facility] Comment on above: Performed By: #### L [id number] #### [facility] (DEFAULT) [address] [address] Monocytes/100 WBC (Bld) 11.7 % Normal [facility] Comment on above: Performed By: #### L [id number] #### [facility] (DEFAULT) [address] [address] Nucleated RBC 0.0 /100 WBC Normal <=0.2 [facility] Comment on above: Performed By: #### L [id number] #### [facility] (DEFAULT) [address] [address] Platelet mean volume (Bld) [Entitic vol] 9.8 fL Normal 8.7-12.3 [facility] Comment on above: Performed By: #### L [id number] #### [facility] (DEFAULT) [address] [address] Platelets (Bld) [#/Vol] 217 10*3/uL Normal 146-337 [facility] Comment on above: Performed By: #### L [id number] #### [facility] (DEFAULT) [address] [address] RBC (Bld) [#/Vol] 5.38 10*6/uL Normal 4.38-5.83 [facility] Comment on above: Performed By: #### L [id number] #### [facility] (DEFAULT) [address] [address] RBC Distribution 12.9 % Normal 10.9-14.3 [facility] Comment on above: Performed By: #### L [id number] #### [facility] (DEFAULT) [address] [place] [address] Segs + Bands Auto 69.6 % Normal [facility] Comment on above: Performed By: #### L [id number] #### [facility] (DEFAULT) [address] [place] [address] Segs + Bands,Absolute Auto 4.28 K/uL Normal 1.57-6.19 [facility] Comment on above: Performed By: #### L [id number] #### [facility] (DEFAULT) [address] [place] [address] WBC (Bld) [#/Vol] 6.15 10*3/uL Normal 3.73-10.10 [facility] Comment on above: Performed By: #### L [id number] #### [facility] (DEFAULT) [address] [place] [address] Basophils (Bld) [#/Vol] 10*3/uL 0.00 - 0.09 K/uL [facility] Basophils/100 WBC (Bld) 0.5 % [facility] Differential cell count method Nom (Bld) Electronic Differential [facility] Eosinophils (Bld) [#/Vol] 0.14 10*3/uL 0.00 - 0.48 K/uL [facility] Eosinophils/100 WBC (Bld) 2.3 % [facility] Erythrocyte distribution width (RBC) [Ratio] 12.9 % 10.9 - 14.3 % [facility] Hematocrit (Bld) [Volume fraction] 47.8 % 39.6 - 48.8 % [facility] Hemoglobin (Bld) [Mass/Vol] 15.8 g/dL 13.4 - 16.8 g/dL [facility] Immature granulocytes (Bld) [#/Vol] 0.05 10*3/uL <=0.08 [facility] Immature granulocytes/100 WBC (Bld) 0.8 % [facility] Lymphocytes (Bld) [#/Vol] 0.93 10*3/uL 0.83 - 3.57 K/uL [facility] Lymphocytes/100 WBC (Bld) 15.1 % [facility] MCH (RBC) [Entitic mass] 29.4 pg 26.1 - 33.3 pg [facility] MCHC (RBC) [Mass/Vol] 33.1 g/dL 31.9 - 36.5 g/dL [facility] MCV (RBC) [Entitic vol] 88.8 fL 79.0 - 94.5 fL [facility] Monocytes (Bld) [#/Vol] 0.72 10*3/uL 0.24 - 0.93 K/uL [facility] Monocytes/100 WBC (Bld) 11.7 % [facility] Neutrophils (Bld) [#/Vol] 4.28 10*3/uL 1.57 - 6.19 K/uL [facility] Nucleated RBC/100 WBC (Bld) [Ratio] 0.0 % <=0.2 /100 WBC [facility] Platelet mean volume (Bld) [Entitic vol] 9.8 fL 8.7 - 12.3 fL [facility] Platelets (Bld) [#/Vol] 217 10*3/uL 146 - 337 K/uL [facility] RBC (Bld) [#/Vol] 5.38 10*6/uL [facility] Segmented neutrophils/100 WBC (Bld) 69.6 % [facility] WBC (Bld) [#/Vol] 6.15 10*3/uL 3.73 - 10.10 K/uL [facility] CHEM 7 (LYTES,BUN,CREA,GLUC) on 07-06-2021 Anion gap [Moles/Vol] 13 mmol/L Normal 7-17 [facility] Comment on above: Performed By: #### C HM7 #### [facility] (DEFAULT) [address] [place] [address] Chloride [Moles/Vol] 111 mmol/L High 98-108 [facility] Comment on above: Performed By: #### C HM7 #### [facility] (DEFAULT) [address] [place] [address] CO2 [Moles/Vol] 20 mmol/L Low 21-31 [facility] Comment on above: Performed By: #### C HM7 #### [facility] (DEFAULT) [address] [place] [address] Creatinine [Mass/Vol] 1.08 mg/dL Normal 0.70-1.30 [facility] Comment on above: Performed By: #### C HM7 #### [facility] (DEFAULT) [address] [place] [address] GFR/1.73 sq M.predicted among non-blacks MDRD (S/P/Bld) [Vol rate/Area] 78 mL/min/{1.73_m2} Normal >=60 [facility] Comment on above: Result Comment: Repo rted eGFR is based on the CKD-EPI 2020 equation using creatinine, age, and sex. Performed By: #### C HM7 #### [facility] (DEFAULT) [address] [place] [address] Glucose [Mass/Vol] 111 mg/dL High 70-99 [facility] Comment on above: Performed By: #### C HM7 #### [facility] [facility] (DEFAULT) [address] [place] [id number] Osmolality [Osmolality] 297 mosm/kg Normal 278-305 [facility] Comment on above: Performed By: #### C HM7 #### U [facility] (DEFAULT) [address] [place] [address] Potassium [Moles/Vol] 4.4 mmol/L Normal 3.5-5.0 [facility] Comment on above: Performed By: #### C HM7 #### [facility] (DEFAULT) [address] [place] [address] Sodium [Moles/Vol] 140 mmol/L Normal 135-145 [facility] Comment on above: Performed By: #### C HM7 #### [facility] (DEFAULT) [address] [place] [address] Urea nitrogen [Mass/Vol] 21 mg/dL Normal 7-25 [facility] Comment on above: Performed By: #### C HM7 #### [facility] (DEFAULT) [address] [place] [address] Urea nitrogen/Creatinine [Mass ratio] 19 mg/mg Normal [facility] Comment on above: Performed By: #### C HM7 #### [facility] (DEFAULT) [address] [place] [address] Anion gap [Moles/Vol] 13 mmol/L 7 - 17 mmol/L [facility] Chloride [Moles/Vol] 111 mmol/L High 98 - 10 8 mmol/L [facility] CO2 [Moles/Vol] 20 mmol/L Low 21 - 31 mmol/L [facility] Creatinine [Mass/Vol] 1.08 mg/dL 0.70 - 1.30 mg/dL [facility] GFR/1.73 sq M.predicted CKD-EPI (S/P/Bld) [Vol rate/Area] 78 >=60 mL/min/1.7 3m2 [facility] Comment on above: Reported eGFR is bas ed on the CKD-EPI 2020 equation using creatinine, age, and sex. Glucose [Mass/Vol] 111 mg/dL High 70 - 99 mg/dL [facility] Interpretation and review of laboratory results Abnormal [facility] Osmolality Calc [Osmolality] 297 [facility] Potassium [Moles/Vol] 4.4 mmol/L 3.5 - 5.0 mmol/L [facility] Sodium [Moles/Vol] 140 mmol/L 135 - 145 mmol/L [facility] Urea nitrogen [Mass/Vol] 21 mg/dL 7 - 25 mg/dL [facility] Urea nitrogen/Creatinine [Mass ratio] 19 mg/mg [facility] ECHOCARDIOGRAM TRANSESOPHAGE AL (JONO)on 07-06-2021 ECHOCARDIOGRAM TRANSESOPHAGEAL (JONO) Exam aborted as patient was in sinus rhythm. Facility [facility] Patient Information Patient Name Edmond Lama Legal Sex Male Indication for Exam Priority: Routine Dx: PAF (paroxysmal atrial fibrillation) [I48.0 (ICD-10-CM)] Comments: Noel Gee or Mely Brumfield to schedule Same day as procedure Interpretation Summary Exam aborted as patient was in sinus rhythm. Findings Left Ventricle Diastolic function not assessed. Reading Providers Reading Role Read Date Justice Schmidt MD Test Research Contracts Supervisor, [employer] [place] 07/06/2021 Performing Staff Leah Cummings RN Study Details The risks and alternatives of the procedure and conscious sedation were explained to the patient/family member and/or their power of [place] attorney. Informed consent was obtained. All staff members involved in the procedure completed a timeout prior to the start of the procedure verifying correct patient identity and correct procedure to be performed. A transesophageal echocardiography study was performed. Total time physician provided [id number] service beginning with the administration of sedation medications until the patient was sufficiently recovered after the procedure was 0 minutes. There were no complications. Exam Details Performed Procedure Technologist Supporting Staff Performing Physician PROCEDURE ABORTED/NOT PERFORMED HAYDEN Finney MD Appointment Date/Status Modality Department 07/06/2021 Arrived JONO TESTING, [facility] ECHOCARDIOGRAPHY ROSS Begin Exam End Exam 07/06/2021 [...] no ABN associated with this order. Normal [facility] No Panel Informationon 07-06 ACT-LR, POC >400 High [facility] Interpretation and review of laboratory results Abnormal [facility] Test performed at ad dress of the patient encounter. [facility] PT,INR,PTTon 07-06-2021 aPTT Coag (Bld) [Time] 32.6 s Normal 24.0-34.3 [facility] Comment on above: Performed By: #### P TPTT #### [facility] (DEFAULT) [address] [address] INR Coag (PPP) [Relative time] 1.1 {INR} Normal 0.9-1.1 [facility] Comment on above: Performed By: #### P TPTT #### [facility] (DEFAULT) [address] [place] [address] PT Coag (PPP) [Time] 14.1 s Normal 11.9-14.2 [facility] Comment on above: Performed By: #### P TPTT #### [facility] (DEFAULT) [address] [place] [address] aPTT Coag (PPP) [Time] 32.6 s [facility] INR Coag (Bld) [Relative time] 1.1 {INR} [facility] Interpretation and review of laboratory results Normal [facility] PT Coag (PPP) [Time] 14.1 s [facility] Basophil percentageon 2021 Chloride [Moles/Vol] 111 mmol/L 98-107 [facility] Work Phone: [phone] Glucose [Mass/Vol] 90 mg/dL 74-106 [facility] Work Phone: Potassium [Moles/Vol] 4.1 mmol/L 3.5-5.1 [facility] Work Phone: Sodium [Moles/Vol] 140 mmol/L 136-145 [facility] Work Phone: [phone] WBC (Bld) [#/Vol] 7.0 10*3/uL 4.4-11.0 [facility] Work Phone: Blood erythrocytes count (nu mber/volume)on 06-22-2021 RBC (Bld) [#/Vol] 5.23 10*6/uL 4.6-6.2 [facility] Work Phone: Blood hemoglobin measurement (mass/volume)on 06-22-2021 Hemoglobin (Bld) [Mass/Vol] 15.2 g/dL 13.0-16.5 [facility] Work Phone: Blood platelet mean volumeon 06-22-2021 Platelet mean volume (Bld) [Entitic vol] 10.1 fL 6.2-12.0 [facility] Work Phone: Determination of erythrocyte mean corpuscular volume (MCV)on 06-22-2021 MCV (RBC) [Entitic vol] 89.9 fL 80-94 [facility] Work Phone: [phone] Hematocrit Auto (Bld) [Volum e fraction]on 06-22-2021 Hematocrit (Bld) [Volume fraction] 47.0 % 40-54 [facility] Work Phone: [phone] Laboratory - Chemistry and C hemistry - challengeon 06-22-2021 CO2 [Moles/Vol] 23.0 mmol/L 21.0-32.0 [facility] Work Phone: [phone] Laboratory - Hematology and Cell countson 06-22-2021 Erythrocyte distribution width (RBC) [Entitic vol] 40.7 fL 35.1-43.9 [facility] Work Phone: [phone] Erythrocyte distribution width (RBC) [Ratio] 12.4 % 11.6-14.6 [facility] Work Phone: [phone] MCH (RBC) [Entitic mass] 29.1 pg 27.0-32.0 [facility] Work Phone: [phone] MCHC Auto (RBC) [Mass/Vol]on 06-22-2021 MCHC (RBC) [Mass/Vol] 32.3 g/dL 32-36 [facility] Work Phone: No Panel Informationon 06-22 Estimated GFR (MDRD) Amer 86 mL/min >60 [facility] Work Phone: [phone] Comment on above: GFR Calc Estimated GFR (MDRD) Non-Af Amer 71 mL/min >60 [facility] Work Phone: [phone] Comment on above: Non- GFR Calc Tacrolimus (Prograf) Level 6.1 ng/mL 2.0-20.0 [facility] Work Phone: [phone] Comment on above: Trough (immediately following transplant) 15.0 Trough (steady state, 2 weeks or more after transplant): 3.0 - 8.0 Performed by LC-MS/MS technology.Performed at: [address], [place] [id number] Director: Neto Cullen MD, Phone: [phone] Platelets bldon 06-22-2021 Platelets (Bld) [#/Vol] 211 10*3/uL 150-450 [facility] Work Phone: [phone] Serum or plasma creatinine m easurement (mass/volume)on 06-22-2021 Creatinine [Mass/Vol] 1.12 mg/dL 0.70-1.30 [facility] Work Phone: [phone] Comment on above: The validity of the calculated GFR & GFRAA in patients over 70 years has not been determined. Clinical correlation is essential. Serum or plasma urea nitroge n measurement (mass/volume)on 06-22-2021 Urea nitrogen [Mass/Vol] 22 mg/dL 08-23 [facility] Work Phone: [phone] Thin prep Papanicolaou smear with manual screeningon 06-22-2021 Thin prep Papanicolaou smear with manual screening 6 5-15 [facility] Work Phone: Basophil percentageon 2021 Chloride [Moles/Vol] 107 mmol/L 98-107 [facility] Work Phone: [phone] Glucose [Mass/Vol] 89 mg/dL 74-106 [facility] Work Phone: [phone] Potassium [Moles/Vol] 4.0 mmol/L 3.5-5.1 [facility] Work Phone: [phone] Sodium [Moles/Vol] 139 mmol/L 136-145 [facility] Work Phone: [phone] WBC (Bld) [#/Vol] 7.6 10*3/uL 4.4-11.0 [facility] Work Phone: [phone] Blood erythrocytes count (nu mber/volume)on 05-24-2021 RBC (Bld) [#/Vol] 5.49 10*6/uL 4.6-6.2 [facility] Work Phone: [phone] Blood hemoglobin measurement (mass/volume)on 05-24-2021 Hemoglobin (Bld) [Mass/Vol] 16.0 g/dL 13.0-16.5 [facility] Work Phone: [phone] Blood platelet mean volumeon 05-24-2021 Platelet mean volume (Bld) [Entitic vol] 10.1 fL 6.2-12.0 [facility] Work Phone: [phone] Determination of erythrocyte mean corpuscular volume (MCV)on 05-24-2021 MCV (RBC) [Entitic vol] 88.9 fL 80-94 [facility] Work Phone: [phone] Hematocrit Auto (Bld) [Volum e fraction]on 05-24-2021 Hematocrit (Bld) [Volume fraction] 48.8 % 40-54 [facility] Work Phone: [phone] Laboratory - Chemistry and C hemistry - challengeon 05-24-2021 CO2 [Moles/Vol] 25.0 mmol/L 21.0-32.0 [facility] Work Phone: [phone] Laboratory - Hematology and Cell countson 05-24-2021 Erythrocyte distribution width (RBC) [Entitic vol] 40.9 fL 35.1-43.9 [facility] Work Phone: [phone] Erythrocyte distribution width (RBC) [Ratio] 12.5 % 11.6-14.6 [facility] Work Phone: [phone] MCH (RBC) [Entitic mass] 29.1 pg 27.0-32.0 [facility] Work Phone: [phone] MCHC Auto (RBC) [Mass/Vol]on 05-24-2021 MCHC (RBC) [Mass/Vol] 32.8 g/dL 32-36 [facility] Work Phone: [phone] No Panel Informationon 05-24 Estimated GFR (MDRD) Amer 85 mL/min >60 [facility] Work Phone: [phone] Comment on above: GFR Calc Estimated GFR (MDRD) Non-Af Amer 70 mL/min >60 [facility] Work Phone: [phone] Comment on above: Non- GFR Calc Tacrolimus (Prograf) Level 7.0 ng/mL [facility] Work Phone: Comment on above: Trough (immediately following transplant) 15.0 Trough (steady state, 2 weeks or more after transplant): 3.0 - 8.0 Performed by LC-MS/MS technology.Performed at: [address] [id number] Director: Neto Cullen MD, Phone: [phone] Platelets bldon 05-24-2021 Platelets (Bld) [#/Vol] 211 10*3/uL 150-450 [facility] Work Phone: Serum or plasma creatinine m easurement (mass/volume)on 05-24-2021 Creatinine [Mass/Vol] 1.13 mg/dL 0.70-1.30 [facility] Work Phone: Comment on above: The validity of the calculated GFR & GFRAA in patients over 70 years has not been determined. Clinical correlation is essential. Serum or plasma urea nitroge n measurement (mass/volume)on 05-24-2021 Urea nitrogen [Mass/Vol] 21 mg/dL 08-23 [facility] Work Phone: [phone] Thin prep Papanicolaou smear with manual screeningon 05-24-2021 Thin prep Papanicolaou smear with manual screening 7 -15 [facility] Work Phone: Absolute lymphocyte counton 04-27-2021 Lymphocytes Auto (Unsp spec) [#/Vol] 1.06 10*3/uL 0.83-4.51 [facility] Work Phone: [phone] Basophil percentageon 2021 Basophils/100 WBC (Bld) 0.5 % 0-1 [facility] Work Phone: Bilirubin [Mass/Vol] 0.50 mg/dL 0.20-1.00 [facility] Work Phone: Comment on above: For patients on eltr ombopag therapy, use of Dimension [place] TBIL is not recommended. Chloride [Moles/Vol] 111 mmol/L 98-107 [facility] Work Phone: Eosinophils/100 WBC (Bld) 2.0 % 0-5 [facility] Work Phone: Glucose [Mass/Vol] 85 mg/dL 74-106 [facility] Work Phone: Neutrophils (Bld) [#/Vol] 4.1 10*3/uL 2.0-7.7 [facility] Work Phone: Neutrophils/100 WBC (Bld) 67.1 % 47-70 [facility] Work Phone: Potassium [Moles/Vol] 4.2 mmol/L 3.5-5.1 [facility] Work Phone: Protein [Mass/Vol] 6.8 g/dL 6.4-8.2 [facility] Work Phone: Sodium [Moles/Vol] 140 mmol/L 136-145 [facility] Work Phone: WBC (Bld) [#/Vol] 6.1 10*3/uL 4.4-11.0 [facility] Work Phone: Blood erythrocytes count (nu mber/volume)on 04-27-2021 RBC (Bld) [#/Vol] 5.24 10*6/uL 4.6-6.2 [facility] Work Phone: Blood hemoglobin measurement (mass/volume)on 04-27-2021 Hemoglobin (Bld) [Mass/Vol] 15.4 g/dL 13.0-16.5 [facility] Work Phone: Blood lymphocytes/100 leukoc yteson 04-27-2021 Lymphocytes/100 WBC (Bld) 17.4 % 19-41 [facility] Work Phone: Blood monocytes/100 leukocyt eson 04-27-2021 Monocytes/100 WBC (Bld) 12.2 % 0-10 [facility] Work Phone: Blood platelet mean volumeon 04-27-2021 Platelet mean volume (Bld) [Entitic vol] 9.7 fL 6.2-12.0 [facility] Work Phone: [phone] Determination of erythrocyte mean corpuscular volume (MCV)on 04-27-2021 MCV (RBC) [Entitic vol] 88.5 fL 80-94 [facility] Work Phone: [phone] Hematocrit Auto (Bld) [Volum e fraction]on 04-27-2021 Hematocrit (Bld) [Volume fraction] 46.4 % 40-54 [facility] Work Phone: [phone] Laboratory - Chemistry and C hemistry - challengeon 04-27-2021 ALP [Catalytic activity/Vol] 91 U/L 45-117 [facility] Work Phone: [phone] ALT [Catalytic activity/Vol] 22 U/L 16-61 [facility] Work Phone: [phone] CO2 [Moles/Vol] 25.0 mmol/L 21.0-32.0 [facility] Work Phone: [phone] Globulin (S) [Mass/Vol] 3.1 g/dL 2.2-4.2 [facility] Work Phone: [phone] Magnesium [Mass/Vol] 1.9 mg/dL 1.6-2.6 [facility] Work Phone: [phone] Urea nitrogen/Creatinine [Mass ratio] 15.9 mg/mg 10-20 [facility] Work Phone: [phone] Laboratory - Hematology and Cell countson 04-27-2021 Erythrocyte distribution width (RBC) [Entitic vol] 40.7 fL 35.1-43.9 [facility] Work Phone: [phone] Erythrocyte distribution width (RBC) [Ratio] 12.5 % 11.6-14.6 [facility] Work Phone: [phone] Immature granulocytes/100 WBC (Bld) 0.800 % 0.0-0.9 [facility] Work Phone: [phone] Comment on above: IG% - Immature Granu locytes (promyelocytes, myelocytes and metamyelocytes) > 1% indicates that a LEFT SHIFT is Present. MCH (RBC) [Entitic mass] 29.4 pg 27.0-32.0 [facility] Work Phone: Nucleated RBC/100 WBC (Bld) [Ratio] 0 % 0-5 [facility] Work Phone: [phone] MCHC Auto (RBC) [Mass/Vol]on 04-27-2021 MCHC (RBC) [Mass/Vol] 33.2 g/dL 32-36 [facility] Work Phone: No Panel Informationon 04-27 Estimated GFR (MDRD) Amer 90 mL/min >60 [facility] Work Phone: Comment on above: GFR Calc Estimated GFR (MDRD) Non-Af Amer 75 mL/min >60 [facility] Work Phone: Comment on above: Non- GFR Calc Tacrolimus (Prograf) Level 6.5 ng/mL [facility] Work Phone: Comment on above: Trough (immediately following transplant) 15.0 Trough (steady state, 2 weeks or more after transplant): 3.0 - 8.0 Performed by LC-MS/MS technology.Performed at: [address] [id number] Director: Neto Cullen MD, Phone: [phone] Platelets bldon 04-27-2021 Platelets (Bld) [#/Vol] 205 10*3/uL 150-450 [facility] Work Phone: [phone] Serum or plasma albumin deya urement (mass/volume)on 04-27-2021 Albumin [Mass/Vol] 3.7 g/dL 3.2-5.0 [facility] Work Phone: [phone] Serum or plasma albumin/glob ulin mass ratioon 04-27-2021 Albumin/Globulin [Mass ratio] 1.2 {ratio} 0.9-2.4 [facility] Work Phone: [phone] Serum or plasma calcium deya urement (mass/volume)on 04-27-2021 Calcium [Mass/Vol] 9.4 mg/dL 8.5-10.1 [facility] Work Phone: Serum or plasma creatinine m easurement (mass/volume)on 04-27-2021 Creatinine [Mass/Vol] 1.07 mg/dL 0.70-1.30 [facility] Work Phone: Comment on above: The validity of the calculated GFR & GFRAA in patients over 70 years has not been determined. Clinical correlation is essential. Serum or plasma urea nitroge n measurement (mass/volume)on 04-27-2021 Urea nitrogen [Mass/Vol] 17 mg/dL 7-18 [facility] Work Phone: Thin prep Papanicolaou smear with manual screeningon 04-27-2021 Thin prep Papanicolaou smear with manual screening 15 U/L 15-37 [facility] Work Phone: Thin prep Papanicolaou smear with manual screening 4 5-15 [facility] Work Phone: Basophil percentageon 2021 Basophil percentage 0 SEEN /hpf [facility] Work Phone: Basophil percentage 2.6 mg/dL 2.5-4.9 [facility] Work Phone: Bilirubin [Mass/Vol] 0.70 mg/dL 0.20-1.00 [facility] Work Phone: Comment on above: For patients on eltr ombopag therapy, use of Dimension [place] TBIL is not recommended. Chloride [Moles/Vol] 109 mmol/L 98-107 [facility] Work Phone: Glucose [Mass/Vol] 87 mg/dL 74-106 [facility] Work Phone: Potassium [Moles/Vol] 4.2 mmol/L 3.5-5.1 [facility] Work Phone: Protein [Mass/Vol] 6.9 g/dL 6.4-8.2 [facility] Work Phone: Sodium [Moles/Vol] 140 mmol/L 136-145 [facility] Work Phone: WBC (Bld) [#/Vol] 6.6 10*3/uL 4.4-11.0 [facility] Work Phone: Bilirubin Test strip Ql (U)o n 03-24-2021 Bilirubin Ql (U) Negative Negative [facility] Work Phone: Blood erythrocytes count (nu mber/volume)on 03-24-2021 RBC (Bld) [#/Vol] 5.17 10*6/uL 4.6-6.2 [facility] Work Phone: Blood hemoglobin measurement (mass/volume)on 03-24-2021 Hemoglobin (Bld) [Mass/Vol] 15.4 g/dL 13.0-16.5 [facility] Work Phone: Blood platelet mean volumeon 03-24-2021 Platelet mean volume (Bld) [Entitic vol] 10.2 fL 6.2-12.0 [facility] Work Phone: Determination of erythrocyte mean corpuscular volume (MCV)on 03-24-2021 MCV (RBC) [Entitic vol] 89.7 fL 80-94 [facility] Work Phone: Hematocrit Auto (Bld) [Volum e fraction]on 03-24-2021 Hematocrit (Bld) [Volume fraction] 46.4 % 40-54 [facility] Work Phone: Ketones Test strip Ql (U)on 03-24-2021 Ketones Ql (U) Negative Negative [facility] Work Phone: Laboratory - Chemistry and C hemistry - challengeon 03-24-2021 ALP [Catalytic activity/Vol] 92 U/L 45-117 [facility] Work Phone: ALT [Catalytic activity/Vol] 25 U/L 16-61 [facility] Work Phone: CO2 [Moles/Vol] 24.0 mmol/L 21.0-32.0 [facility] Work Phone: Globulin (S) [Mass/Vol] 3.3 g/dL 2.2-4.2 [facility] Work Phone: [phone] Magnesium [Mass/Vol] 1.8 mg/dL 1.6-2.6 [facility] Work Phone: [phone] Urea nitrogen/Creatinine [Mass ratio] 17.4 mg/mg 10-20 [facility] Work Phone: [phone] Laboratory - Hematology and Cell countson 03-24-2021 Erythrocyte distribution width (RBC) [Entitic vol] 41.3 fL 35.1-43.9 [facility] Work Phone: [phone] Erythrocyte distribution width (RBC) [Ratio] 12.5 % 11.6-14.6 [facility] Work Phone: [phone] MCH (RBC) [Entitic mass] 29.8 pg 27.0-32.0 [facility] Work Phone: [phone] MCHC Auto (RBC) [Mass/Vol]on 03-24-2021 MCHC (RBC) [Mass/Vol] 33.2 g/dL 32-36 [facility] Work Phone: [phone] Mucus LM Ql (Urine sed)on Mucus Ql (Urine sed) 0 SEEN /hpf [facility] Work Phone: [phone] Nitrite Test strip Ql (U)on 03-24-2021 Nitrite Ql (U) Negative Negative [facility] Work Phone: [phone] No Panel Informationon 03-24 Estimated GFR (MDRD) Amer 83 mL/min >60 [facility] Work Phone: [phone] Comment on above: GFR Calc Estimated GFR (MDRD) Non-Af Amer 69 mL/min >60 [facility] Work Phone: [phone] Comment on above: Non- GFR Calc Parathyroid Hormone (Intact) 289.8 pg/mL 18.4-80.1 [facility] Work Phone: [phone] Tacrolimus (Prograf) Level 5.9 ng/mL [facility] Work Phone: [phone] Comment on above: Trough (immediately following transplant) 15.0 Trough (steady state, 2 weeks or more after transplant): 3.0 - 8.0 Performed by LC-MS/MS technology.Performed at: [address] [id number] Director: Neto Cullen MD, Phone: [phone] Urine Microalbumin/Creatini ne Ratio 6.9 mg/g CRE <30 [facility] Work Phone: [phone] Vitamin D 25-Hydroxy 26.5 ng/mL [facility] Work Phone: [phone] Comment on above: Vitamin D 25(OH) Sta tus Range Deficiency <20 ng/mL (50nmol/L) Insufficiency 20 - 30 ng/mL (50 - 75 nmol/L) Sufficiency 30 - 100 ng/mL (75 - 250 nmol/L) Toxicity >100 ng/mL (>250 nmol/L) Platelets bldon 03-24-2021 Platelets (Bld) [#/Vol] 223 10*3/uL 150-450 [facility] Work Phone: [phone] Protein Test strip Ql (U)on 03-24-2021 Protein Ql (U) 15 mg/dl Negative [facility] Work Phone: [phone] Serum or plasma albumin deya urement (mass/volume)on 03-24-2021 Albumin [Mass/Vol] 3.6 g/dL 3.2-5.0 [facility] Work Phone: [phone] Serum or plasma albumin/glob ulin mass ratioon 03-24-2021 Albumin/Globulin [Mass ratio] 1.1 {ratio} 0.9-2.4 [facility] Work Phone: [phone] Serum or plasma calcium deya urement (mass/volume)on 03-24-2021 Calcium [Mass/Vol] 9.2 mg/dL 8.5-10.1 [facility] Work Phone: [phone] Serum or plasma creatinine m easurement (mass/volume)on 03-24-2021 Creatinine [Mass/Vol] 1.15 mg/dL 0.70-1.30 [facility] Work Phone: Comment on above: The validity of the calculated GFR & GFRAA in patients over 70 years has not been determined. Clinical correlation is essential. Serum or plasma urea nitroge n measurement (mass/volume)on 03-24-2021 Urea nitrogen [Mass/Vol] 20 mg/dL 7-18 [facility] Work Phone: Squamous epithelial cells de tection in urine sediment by light microscopyon 03-24-2021 Epithelial cells.squamous LM Ql (Urine sed) 0 SEEN /hpf [facility] Work Phone: Thin prep Papanicolaou smear with manual screeningon 03-24-2021 Thin prep Papanicolaou smear with manual screening 18 U/L 15-37 [facility] Work Phone: Thin prep Papanicolaou smear with manual screening 7 5-15 [facility] Work Phone: Thin prep Papanicolaou smear with manual screening 10.1 mg/L NO RANGE EST. [facility] Work Phone: Urine blood detectionon 03-09 RBC Ql (U) Negative Negative [facility] Work Phone: RBC Ql (U) 0 SEEN /hpf [facility] Work Phone: Urine clarityon 03-24-2021 Clarity (U) Clear Clear [facility] Work Phone: Urine color determinationon 03-24-2021 Color (U) Yellow Yellow [facility] Work Phone: Urine creatinine measurement (mass/volume)on 03-24-2021 Creatinine (U) [Mass/Vol] 147.00 mg/dL NO RANGE EST. [facility] Work Phone: Urine glucose detectionon Glucose Ql (U) Normal mg/dl Normal [facility] Work Phone: Urine leukocyte esterase det ection by dipstickon 03-24-2021 Leukocyte esterase Test strip Ql (U) Negative Negative [facility] Work Phone: Urine pHon 03-24-2021 pH (U) 6.0 [pH] [facility] Work Phone: Urine sediment bacteria coun t by microscopy (number/high power field)on 03-24-2021 Bacteria LM.HPF (Urine sed) [#/Area] 0 /[HPF] None Seen [facility] Work Phone: Urine specific gravity measu rementon 03-24-2021 Specific gravity (U) [Rel density] 1.020 [facility] Work Phone: Urobilinogen Auto test strip Ql (U)on 03-24-2021 Urobilinogen Ql (U) Normal mg/dl Normal [facility] Work Phone: Absolute lymphocyte counton 02-22-2021 Lymphocytes Auto (Unsp spec) [#/Vol] 1.22 10*3/uL 0.83-4.51 [facility] Work Phone: Basophil percentageon 2021 Basophils/100 WBC (Bld) 0.8 % 0-1 [facility] Work Phone: Chloride [Moles/Vol] 107 mmol/L 98-107 [facility] Work Phone: Eosinophils/100 WBC (Bld) 1.7 % 0-5 [facility] Work Phone: Glucose [Mass/Vol] 94 mg/dL 74-106 [facility] Work Phone: Neutrophils (Bld) [#/Vol] 4.7 10*3/uL 2.0-7.7 [facility] Work Phone: Neutrophils/100 WBC (Bld) 66.3 % 47-70 [facility] Work Phone: Potassium [Moles/Vol] 4.0 mmol/L 3.5-5.1 [facility] Work Phone: Sodium [Moles/Vol] 139 mmol/L 136-145 [facility] Work Phone: WBC (Bld) [#/Vol] 7.1 10*3/uL 4.4-11.0 [facility] Work Phone: Blood erythrocytes count (nu mber/volume)on 02-22-2021 RBC (Bld) [#/Vol] 5.47 10*6/uL 4.6-6.2 [facility] Work Phone: Blood hemoglobin measurement (mass/volume)on 02-22-2021 Hemoglobin (Bld) [Mass/Vol] 15.7 g/dL 13.0-16.5 [facility] Work Phone: Blood lymphocytes/100 leukoc yteson 02-22-2021 Lymphocytes/100 WBC (Bld) 17.1 % 19-41 [facility] Work Phone: Blood monocytes/100 leukocyt eson 02-22-2021 Monocytes/100 WBC (Bld) 12.8 % 0-10 [facility] Work Phone: Blood platelet mean volumeon 02-22-2021 Platelet mean volume (Bld) [Entitic vol] 10.2 fL 6.2-12.0 [facility] Work Phone: Determination of erythrocyte mean corpuscular volume (MCV)on 02-22-2021 MCV (RBC) [Entitic vol] 88.8 fL 80-94 [facility] Work Phone: Hematocrit Auto (Bld) [Volum e fraction]on 02-22-2021 Hematocrit (Bld) [Volume fraction] 48.6 % 40-54 [facility] Work Phone: Laboratory - Chemistry and C hemistry - challengeon 02-22-2021 CO2 [Moles/Vol] 25.0 mmol/L 21.0-32.0 [facility] Work Phone: Laboratory - Hematology and Cell countson 02-22-2021 Erythrocyte distribution width (RBC) [Entitic vol] 41.0 fL 35.1-43.9 [facility] Work Phone: [phone] Erythrocyte distribution width (RBC) [Ratio] 12.5 % 11.6-14.6 [facility] Work Phone: [phone] Immature granulocytes/100 WBC (Bld) 1.300 % 0.0-0.9 [facility] Work Phone: Comment on above: IG% - Immature Granu locytes (promyelocytes, myelocytes and metamyelocytes) > 1% indicates that a LEFT SHIFT is Present. MCH (RBC) [Entitic mass] 28.7 pg 27.0-32.0 [facility] Work Phone: [phone] Nucleated RBC/100 WBC (Bld) [Ratio] 0 % 0-5 [facility] Work Phone: MCHC Auto (RBC) [Mass/Vol]on 02-22-2021 MCHC (RBC) [Mass/Vol] 32.3 g/dL 32-36 [facility] Work Phone: No Panel Informationon 02-22 Estimated GFR (MDRD) Amer 91 mL/min >60 [facility] Work Phone: Comment on above: GFR Calc Estimated GFR (MDRD) Non-Af Amer 76 mL/min >60 [facility] Work Phone: Comment on above: Non- GFR Calc Tacrolimus (Prograf) Level 7.9 ng/mL [facility] Work Phone: Comment on above: Trough (immediately following transplant) 15.0 Trough (steady state, 2 weeks or more after transplant): 3.0 - 8.0 Performed by LC-MS/MS technology.Performed at: [address] [id number] Director: Neto Cullen MD, Phone: [phone] Platelets bldon 02-22-2021 Platelets (Bld) [#/Vol] 222 10*3/uL 150-450 [facility] Work Phone: [phone] Serum or plasma creatinine m easurement (mass/volume)on 02-22-2021 Creatinine [Mass/Vol] 1.06 mg/dL 0.70-1.30 [facility] Work Phone: [phone] Comment on above: The validity of the calculated GFR & GFRAA in patients over 70 years has not been determined. Clinical correlation is essential. Serum or plasma urea nitroge n measurement (mass/volume)on 02-22-2021 Urea nitrogen [Mass/Vol] 26 mg/dL 7-18 [facility] Work Phone: Thin prep Papanicolaou smear with manual screeningon 02-22-2021 Thin prep Papanicolaou smear with manual screening 7 5-15 [facility] Work Phone: [phone] Absolute lymphocyte counton 01-22-2021 Lymphocytes Auto (Unsp spec) [#/Vol] 0.52 10*3/uL 0.83-4.51 [facility] Work Phone: Basophil percentageon 2020 Basophil percentage 2.7 mg/dL 2.5-4.9 [facility] Work Phone: [phone] Bilirubin [Mass/Vol] 0.90 mg/dL 0.20-1.00 [facility] Work Phone: Comment on above: For patients on eltr ombopag therapy, use of Dimension [place] TBIL is not recommended. Chloride [Moles/Vol] 113 mmol/L 98-107 [facility] Work Phone: Cholesterol [Mass/Vol] 189 mg/dL <200 [facility] Work Phone: Comment on above: <200 mg/dL Desirable 200-240 mg/dL Borderline >240 mg/dL High Risk Eosinophils/100 WBC (Bld) 0.8 % 0-5 [facility] Work Phone: Glucose [Mass/Vol] 102 mg/dL 74-106 [facility] Work Phone: Comment on above: Fasting Glucose resu lt from 100 to 125 mg/dL suggests IMPAIRED HOMEOSTASIS per A.D.A. criteria.Please note revised GLUCOSE reference range effective 2017. Neutrophils (Bld) [#/Vol] 5.8 10*3/uL 2.0-7.7 [facility] Work Phone: [phone] Potassium [Moles/Vol] 4.2 mmol/L 3.5-5.1 [facility] Work Phone: Protein [Mass/Vol] 7.2 g/dL 6.4-8.2 [facility] Work Phone: Sodium [Moles/Vol] 144 mmol/L 136-145 [facility] Work Phone: Triglyceride [Mass/Vol] 213 mg/dL [facility] Work Phone: Comment on above: The drugs N-Acetylcy steine and Metamizole may falsely depress this assay.Serum Triglycerides Reference Interval Normal <150 mg/dL Borderline high 150 - 199 mg/dL High 200 - 499 mg/dL Very High > or = 500 mg/dL WBC (Bld) [#/Vol] 7.1 10*3/uL 4.4-11.0 [facility] Work Phone: Blood erythrocytes count (nu mber/volume)on 01-22-2021 RBC (Bld) [#/Vol] 5.52 10*6/uL 4.6-6.2 [facility] Work Phone: Blood hemoglobin measurement (mass/volume)on 01-22-2021 Hemoglobin (Bld) [Mass/Vol] 15.9 g/dL 13.0-16.5 [facility] Work Phone: Blood lymphocytes/100 leukoc yteson 01-22-2021 Lymphocytes/100 WBC (Bld) 7.3 % 19-41 [facility] Work Phone: Blood monocytes/100 leukocyt eson 01-22-2021 Monocytes/100 WBC (Bld) 9.9 % 0-10 [facility] Work Phone: Blood platelet mean volumeon 01-22-2021 Platelet mean volume (Bld) [Entitic vol] 9.9 fL 6.2-12.0 [facility] Work Phone: Determination of erythrocyte mean corpuscular volume (MCV)on 01-22-2021 MCV (RBC) [Entitic vol] 90.4 fL 80-94 [facility] Work Phone: Hematocrit Auto (Bld) [Volum e fraction]on 01-22-2021 Hematocrit (Bld) [Volume fraction] 49.9 % 40-54 [facility] Work Phone: Iron measurement (mass/mass) on 01-22-2021 Iron (Unsp spec) [Mass/Mass] 77 ug/dL 65-175 [facility] Work Phone: Laboratory - Chemistry and C hemistry - challengeon 01-22-2021 ALP [Catalytic activity/Vol] 102 U/L 45-117 [facility] Work Phone: ALT [Catalytic activity/Vol] 28 U/L 16-61 [facility] Work Phone: [phone] CO2 [Moles/Vol] 27.0 mmol/L 21.0-32.0 [facility] Work Phone: Globulin (S) [Mass/Vol] 3.6 g/dL 2.2-4.2 [facility] Work Phone: Magnesium [Mass/Vol] 1.9 mg/dL 1.6-2.6 [facility] Work Phone: Urea nitrogen/Creatinine [Mass ratio] 18.8 mg/mg 10-20 [facility] Work Phone: Laboratory - Hematology and Cell countson 01-22-2021 Basophils/100 WBC (Unsp spec) 0.4 % 0-1 [facility] Work Phone: Erythrocyte distribution width (RBC) [Entitic vol] 41.5 fL 35.1-43.9 [facility] Work Phone: Erythrocyte distribution width (RBC) [Ratio] 12.5 % 11.6-14.6 [facility] Work Phone: Immature granulocytes/100 WBC (Bld) 0.600 % 0.0-0.9 [facility] Work Phone: Comment on above: IG% - Immature Granu locytes (promyelocytes, myelocytes and metamyelocytes) > 1% indicates that a LEFT SHIFT is Present. MCH (RBC) [Entitic mass] 28.8 pg 27.0-32.0 [facility] Work Phone: Neutrophils/100 WBC (Bld) 81.0 % 47-70 [facility] Work Phone: [phone] Nucleated RBC/100 WBC (Bld) [Ratio] 0 % 0-5 [facility] Work Phone: MCHC Auto (RBC) [Mass/Vol]on 01-22-2021 MCHC (RBC) [Mass/Vol] 31.9 g/dL 32-36 [facility] Work Phone: No Panel Informationon 01-22 Estimated GFR (MDRD) Amer 86 mL/min >60 [facility] Work Phone: Comment on above: GFR Calc Estimated GFR (MDRD) Non-Af Amer 71 mL/min >60 [facility] Work Phone: Comment on above: Non- GFR Calc Miscellaneous Test See comment [facility] Work Phone: Comment on above: TEST RESULT LIMITSBK Quantitation PCR Negative copies/mL Negative No BK DNA detected. The quantitative range of this assay is 200 to 10 million copies/mL.This test was developed and its performance characteristics determined by [employer]. It has not been cleared or approved by the Food and Drug Administration. The FDA has determined that such clearance or approval is not necessary.log10 BK Qn PCR Unable to calculate result since non-numeric result obtained for component test. TESTING PERFORMED AT [facility]. ORIGINAL REPORT ON FILE IN LAB CONTAINS ADDITIONAL TEST SITE INFORMATION. Tacrolimus (Prograf) Level 7.9 ng/mL [facility] Work Phone: Comment on above: Trough (immediately following transplant) 15.0 Trough (steady state, 2 weeks or more after transplant): 3.0 - 8.0 Performed by LC-MS/MS technology.Performed at: [address] [id number] Director: Neto Cullen MD, Phone: [phone] Total Iron Binding Capacity 231 ug/dL 250-450 [facility] Work Phone: Platelets bldon 01-22-2021 Platelets (Bld) [#/Vol] 188 10*3/uL 150-450 [facility] Work Phone: Serum or plasma albumin deya urement (mass/volume)on 01-22-2021 Albumin [Mass/Vol] 3.6 g/dL 3.2-5.0 [facility] Work Phone: Serum or plasma albumin/glob ulin mass ratioon 01-22-2021 Albumin/Globulin [Mass ratio] 1.0 {ratio} 0.9-2.4 [facility] Work Phone: Serum or plasma calcium deya urement (mass/volume)on 01-22-2021 Calcium [Mass/Vol] 10.0 mg/dL 8.5-10.1 [facility] Work Phone: Serum or plasma cholesterol in HDL measurement (mass/volume)on 01-22-2021 Cholesterol in HDL [Mass/Vol] 47 mg/dL [facility] Work Phone: Comment on above: The drugs N-Acetylcy steine and Metamizole may falsely depress this assay. Reference Range HDL <40 mg/dL Low HDL Cholesterol HDL >or= 60 mg/dL High HDL Cholesterol Serum or plasma cholesterol in VLDL measurement (mass/volume)on 01-22-2021 Cholesterol in VLDL [Mass/Vol] 43 mg/dL 5-40 [facility] Work Phone: [phone] Serum or plasma creatinine m easurement (mass/volume)on 01-22-2021 Creatinine [Mass/Vol] 1.12 mg/dL 0.70-1.30 [facility] Work Phone: Comment on above: The validity of the calculated GFR & GFRAA in patients over 70 years has not been determined. Clinical correlation is essential. Serum or plasma ferritin imani surement (mass/volume)on 01-22-2021 Ferritin [Mass/Vol] 907 ng/mL 26-388 [facility] Work Phone: [phone] Serum or plasma iron saturat ion measurement (mass fraction)on 01-22-2021 Iron saturation [Mass fraction] 33.3 % 15.0-55.0 [facility] Work Phone: Serum or plasma low density lipoprotein (LDL) cholesterol measurement (mass/volume)on 01-22-2021 Cholesterol in LDL [Mass/Vol] 99 mg/dL 0-130 [facility] Work Phone: Serum or plasma urea nitroge n measurement (mass/volume)on 01-22-2021 Urea nitrogen [Mass/Vol] 21 mg/dL 7-18 [facility] Work Phone: Serum or plasma uric acid me asurement (mass/volume)on 01-22-2021 Urate [Mass/Vol] 6.5 mg/dL 3.5-7.2 [facility] Work Phone: Comment on above: The drugs N-Acetylcy steine and Metamizole may falsely depress this assay. Thin prep Papanicolaou smear with manual screeningon 01-22-2021 Thin prep Papanicolaou smear with manual screening 15 U/L 15-37 [facility] Work Phone: [phone] Thin prep Papanicolaou smear with manual screening 4 5-15 [facility] Work Phone: Urine creatinine measurement (mass/volume)on 01-22-2021 Creatinine (U) [Mass/Vol] 112.00 mg/dL NO RANGE EST. [facility] Work Phone: Urine protein measurement (m ass/volume)on 01-22-2021 Protein (U) [Mass/Vol] 26.1 mg/dL 0.0-11.8 [facility] Work Phone: Urine protein/creatinine mas s ratioon 01-22-2021 Protein/Creatinine (U) [Mass ratio] 233 mg/g CRE 0-200 [facility] Work Phone: ECHO Complete 2D W Doppler W ColorOrdered By: Sarah Charles on 11-23-2020 TRANSTHORACIC ECHOCARDIOGRAM PATIENT: Edmond Lama STUDY DATE: 11/23/2020 : 1960 AGE: 60 HT/WT: 175.3 cm (69 106.1 kg in) (233.5 lb) GENDER: M BP: 123 / 73 LOCATION: [facility] PATIENT Outpatient [facility] STATUS: *ORDERING PHYSICIAN: * Sarah Charles *RN: * Cindy Segura *READING PHYSICIAN: * Nick *UTILITY WORKER [employer] [place]: * Aliza Sotelo RDCS, MD Leroy AE, [...] Value 09/25/2018 Reference (more content not included)... [employer] Work Phone: Pedro, Moog[facility] Incoming Cardiology Results From [employer] - 11/23/2020 4:54 PM EDT TRANSTHORACIC ECHOCARDIOGRAM PATIENT: Edmond Lama STUDY DATE: 11/23/2020 : 1960 AGE: 60 HT/WT: 175.3 cm (69 106.1 kg in) (233.5 lb) GENDER: M BP: 123 / 73 LOCATION: [facility] PATIENT Outpatient [facility] STATUS: *ORDERING PHYSICIAN: * Sarah Charles *RN: * Cindy Segura *READING PHYSICIAN: * Nick *UTILITY WORKER [employer] [place]: * Aliza Sotelo RDCS, MD Leroy AE, [...] cm 2.6 --------- (more content not included)... [facility] Work Phone: [facility] Work Phone: Echo Complete w/wo Contrasto n 11-23-2020 Echo Complete w/wo Contrast Patient Name: EDMOND LAMA Ultrasound ACCESSION EXAM DATE/TIME PROCEDURE ORDERING PROVIDER [id number] 11/23/2020 16:41 EDT Echo Complete w/wo MALINDA CHARLES JUDITH ANN Contrast Reason For Exam (Echo Complete w/wo Contrast) AI Report TRANSTHORACIC ECHOCARDIOGRAM PATIENT: Edmond Lama STUDY DATE: 11/23/2020 : 1960 AGE: 60 HT/WT: 175.3 cm (69 106.1 kg in) (233.5 lb) GENDER: M BP: 123 / 73 LOCATION: [facility] PATIENT Outpatient [facility] STATUS: *ORDERING PHYSICIAN: * Sarah Charles *RN: * Cindy Segura *READING PHYSICIAN: * Nick *UTILITY WORKER [employer]: * Aliza Sotelo RDCS, MD Leroy AE, [...] 09/25/2018 Referen (more content not included)... Normal [facility] No Panel Informationon 08-13 [email or web address] } [employer] [facility] Work Phone: [facility] Work Phone: [facility] Surgical Pathology Depar tmenton 08-13-2020 [facility] Surgical Pathology Department Name EDMOND LAMA Pathologist: MARINA GALLARDO MD Date of Procedure: 08/13/2020 Date Received: 08/13/2020 Date Reported 08/17/2020 Submitting Physician: HOSSEIN REIS DO Location: [facility] Copy To/Referring/Attending: MINOR BEASLEY DO Other External # FINAL DIAGNOSIS A. ASCENDING COLON, POLYPECTOMY: --TUBULAR ADENOMA. Electronically Signed Out By MARINA GALLARDO MD/[facility] By the signature on this report, the [...] in toto in one cassette. LMP lmp/08/14/2020 [facility] Department of Pathology [address] [place] [address] Normal [facility] Comment on above: Performed By: #### U [facility] #### [facility] Surgical Pathology Department [address] [place] [address] No Panel Informationon 08-06 [email or web address] } [employer] [facility] Work Phone: [facility] ([employer]) [facility] Work Phone: Clinical Summary: HMSPatient IDon 10-25-2019 VOP [facility] Work Phone: Clinical Lists Update: Prelo ad Extendedon 10-23-2019 Tobacco smoking status NHIS Tobacco smoking status NHIS [place]per[place] 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 Question 10 2 [facility] Work Phone: Adult DLA20 Question 11 3 [facility] Work Phone: Adult DLA20 Question 12 3 [facility] Work Phone: Adult DLA20 Question 13 3 [facility] Work Phone: Adult DLA20 Question 14 2 [facility] Work Phone: Adult DLA20 Question 15 1 [facility] Work Phone: Adult DLA20 Question 16 2 [facility] Work Phone: Adult DLA20 Question 17 2 [facility] Work Phone: Adult DLA20 Question 2 camping [facility] Work Phone: Adult DLA20 Question 3 Yes [facility] Work Phone: Adult DLA20 Question 4 Yes [facility] Work Phone: Adult DLA20 Question 5 No [facility] Work Phone: Adult DLA20 Question 6 2 [facility] Work Phone: Adult DLA20 Question 7 4 [facility] Work Phone: Adult DLA20 Question 8 2 [facility] Work Phone: Adult DLA20 Question 9 2 [facility] Work Phone: Adult DLA20 SUM 66.74 [facility] Work Phone: diagnostic criteria for SLE #1 3 [facility] Work Phone: diagnostic criteria for SLE #10 5 [facility] Work Phone: diagnostic criteria for SLE #11 10 [facility] Work Phone: diagnostic criteria for SLE #12 17 [facility] Work Phone: diagnostic criteria for SLE #13 34.9 [facility] Work Phone: diagnostic criteria for SLE #14 56.0 [facility] Work Phone: diagnostic criteria for SLE #15 [id number] [facility] Work Phone: diagnostic criteria for SLE #2 4 [facility] Work Phone: diagnostic criteria for SLE #3 2 [facility] Work Phone: diagnostic criteria for SLE #4 4 [facility] Work Phone: diagnostic criteria for SLE #5 4 [facility] Work Phone: diagnostic criteria for SLE #6 4 [facility] Work Phone: diagnostic criteria for SLE #7 5 [facility] Work Phone: diagnostic criteria for SLE #8 5 [facility] Work Phone: diagnostic criteria for SLE #9 3 [facility] Work Phone: Clinical Summary: Scanned Sd apt Navaon 10-23-2019 cause of , mother anuerism [facility] Work Phone: comments about allergies statins [facility] Work Phone: data entered by patient, alcohol (ethanol or ETOH) use No [facility] Work Phone: Data entered by patient, allergy list I don't have any Environmental AllergiesI don't have any Food Allergies [facility] Work Phone: data entered by patient, drug (of abuse) use No [facility] Work Phone: data entered by patient, Employer Name employed [facility] Work Phone: data entered by patient, exercise history No [facility] Work Phone: data entered by patient, father's medical history Diabetes - non-insulin dependentutH[facility] pressure [facility] Work Phone: Data entered by patient, history of past surgeries Gallbladder surgeryHernia repair [facility] Work Phone: data entered by patient, past medical history A-FibGoutHigh blood pressureKidney disease [facility] Work Phone: data entered by patient, 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, current smoker never smoker [facility] Work Phone: data entered by patient, 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, marital status [facility] Work Phone: data entered by patient, 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, 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 [facility] Work Phone: father of patient is alive or [facility] Work Phone: Housing Type: apartment, house, long term, trailer, none house [facility] Work Phone: housing unit size (asthma environmental history, housing) (from single family to don't know) 1 floor [facility] Work Phone: medical history of patient's brother(s) My brother's health history is unknown [facility] Work Phone: medical history of patient's sister My sister's health history is unknown [facility] Work Phone: mother of patient is alive or [facility] Work Phone: Number of dependent children No [facility] Work Phone: Sodium [Moles/Vol] mycophenolate sodium -360 mg-2-every 12 nixwvirkxejgkfv-[id number] morning 1at night-every 12 hourseliquis-5 mg-1-every 12 hoursfamotidine-20 mg-1-per daymagnesium oxide-243.1 mg-2-every 12 hoursmetoprolol succinate-25 mg-1-per daypregabalin-75 mg-1-per dayropinirole-.25 mg-2-every 12 hourssulfamethoxazole-trime zafzyfd-902-6-per day [facility] Work Phone: Web entered surgical history comments 2 kidney transplants [facility] Work Phone: cause of , mother anuerism [facility] Work Phone: comments about allergies statins [facility] Work Phone: data entered by patient, alcohol (ethanol or ETOH) use No [facility] Work Phone: data entered by patient, drug (of abuse) use No [facility] Work Phone: data entered by patient, Employer Name employed [facility] Work Phone: data entered by patient, exercise history No [facility] Work Phone: data entered by patient, father's medical history Diabetes - non-insulin dependentGoutHigh blood pressure [facility] Work Phone: Data entered by patient, history of past surgeries Cataract surgeryGallbladder surgeryHernia repairTonsillectomy [facility] Work Phone: data entered by patient, past medical history GoutHigh blood pressureKidney disease [facility] Work Phone: data entered by patient, 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, current smoker never smoker [facility] Work Phone: data entered by patient, 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, marital status [facility] Work Phone: father of patient is alive or [facility] Work Phone: Housing Type: apartment, house, long term, trailer, none house [facility] Work Phone: housing unit size (asthma environmental history, housing) (from single family to don't know) 1 floor [facility] Work Phone: medical history of patient's brother(s) My brother's health history is unknown [facility] Work Phone: medical history of patient's sister My sister's health history is unknown [facility] Work Phone: mother of patient is alive or [facility] Work Phone: Number of dependent children No [facility] Work Phone: Sodium [Moles/Vol] mycophenolate sodium-360/mg-2-every 12 hourstacrolimus-1 mg-2 morning 1at night-every 12 hourseliquis-5 mg-1-every 12 hoursfamotidine-20 mg-1-per daymagnesium oxide-243.1 mg-2-every 12 hoursmetoprolol succinate-25 mg-1-per daypregabalin-75 mg-1-per dayropinirole-.25 mg-2-every 12 [id number]-per day [facility] Work Phone: Web entered surgical history comments 2 kidney transplant [facility] Work Phone: Potassiumon 10-09-2018 Potassium [Moles/Vol] 4.2 mmol/L Normal 3.5-5.1 [facility] Comment on above: Performed By: #### H EMDF, LIPA4, CMP3 #### [facility] [address] [place] [address] Potassium [Moles/Vol] 4.2 mmol/L 3.5 - 5.1 mmol/L [facility], [place] Test Performed by [facility], [place] [address] [facility], [place] ECHO Complete 2D W Doppler W Coloron 09-25-2018 TRANSTHORACIC ECHOCARDIOGRAM PATIENT: Edmond Lama STUDY DATE: 09/25/2018 : 1960 AGE: 58 HT/WT: 175.3 cm (69 95.3 kg in) (209.6 lb) GENDER: M BP: 97 / 59 LOCATION: [facility] PATIENT Outpatient [facility] Medical STATUS: Center *ORDERING PHYSICIAN: * Fouzia Pool *READING PHYSICIAN: * Bobby Sánchez MD *UTILITY WORKER [employer]: * Amarilis VILLA INDICATIONS: Murmur. Hypertension. Aortic [...] signed by Bobby Sánchez MD 09/25/2018 15:40 [facility], [facility] Incoming Cardiology Results From [facility]/Alessandro - 09/25/2018 3:40 PM EDT TRANSTHORACIC ECHOCARDIOGRAM PATIENT: Edmond Lama STUDY DATE: 09/25/2018 : 1960 AGE: 58 HT/WT: 175.3 cm (69 95.3 kg in) (209.6 lb) GENDER: M BP: 97 / 59 LOCATION: [facility] PATIENT Outpatient [facility] Medical STATUS: Center *ORDERING PHYSICIAN: * Fouzia Pool *READING PHYSICIAN: * Bobby Sánchez MD *[employer]ILITY WORK[employer]: * Amarilis VILLA --- INDICATIONS: Murmur. Hypertension. [...] signed by Bobby Sánchez MD 09/25/2018 15:40 [facility], [place] CULTURE ANAEROBEon 9 CULTURE ANAEROBE CULTURE ANAEROBE --> Status: F No growth of anaerobes at 5 days. [facility] Comment on above: Order Comment: Speci men collected in O.R. Performed By: #### H NORRIS FINN CMP3 #### [facility] [address] [place] [address] CULT./ST. BACTERIAon 019 CULT./ST. BACTERIA STAIN GRAM --> Statu s: F No organisms seen. 1 Organism Pseudomonas aeruginosa Few -- 1 Organism -- Antibiotic Result Intrp -- Amikacin(KYLIE) <= 2 S Cefepime(KYLIE) = 2 S Ciprofloxacin(KYLIE) <= 0.25 S Gentamicin(KYLIE) <= 1 S Levofloxacin(KYLIE) = 1 S Meropenem(KYLIE) <= 0.25 S Pip/Tazobactam(KYLIE) = 8 S [facility] Comment on above: Order Comment: Speci men collected in O.R. Performed By: #### H NORRIS FINN CMP3 #### [facility] [address] [place] [address] CULTURE AND STAIN - FLUIDon 07-24-2018 CULTURE AND STAIN - FLUID 1 Organism Gram positive larisa Few Catalase positive, pigmented gram positive bacilli Unable to identify by mass spectrometry (MALDI-TOF); no further identification. [facility] Comment on above: Order Comment: Speci men Source Comment:Ascitic Fluid Performed By: #### S /GRM, CXFLD #### [facility] [address] [place], [place] Basic Metabolic Panelon 07-07 Anion gap [Moles/Vol] 11 Normal [facility] Comment on above: Performed By: #### H EMDF, LIPA4, CMP3 #### [place] [address] [place], [place] Calcium [Mass/Vol] 8.8 mg/dL Normal 8.4-10.4 [facility] Comment on above: Performed By: #### H EMDF, LIPA4, CMP3 #### [place] [address] [place], [place] CO2 [Moles/Vol] 24 mmol/L Normal 22-30 [facility] Comment on above: Performed By: #### H EMDF, LIPA4, CMP3 #### [place] [address] [place], [place] Creatinine [Mass/Vol] 4.18 mg/dL High 0.52-1.25 [facility] Comment on above: Performed By: #### H EMDF, LIPA4, CMP3 #### [place] [address] [place], [place] GFR/1.73 sq M predicted among blacks MDRD (S/P/Bld) [Vol rate/Area] 17.8 mL/min/{1.73_m2} Normal >60 [facility] Comment on above: Performed By: #### H EMDF, LIPA4, CMP3 #### [place] [address] [place], [place] GFR/1.73 sq M predicted among non-blacks MDRD (S/P/Bld) [Vol rate/Area] 14.7 mL/min/{1.73_m2} Normal >60 [facility] Comment on above: Result Comment: Sour ce- MDRD equation with creatinine calibration to IDMS(NKDEP) eGFR not recommended for drug dose adjustment Performed By: #### H EMDF, LIPA4, CMP3 #### [facility] [address] [place], [place] Glucose [Mass/Vol] 72 mg/dL Normal 70-100 [facility] Comment on above: Performed By: #### H EMDF, LIPA4, CMP3 #### [facility] [address] [place], [place] Urea nitrogen [Mass/Vol] 41 mg/dL High 7-20 [facility] Comment on above: Performed By: #### H EMDF, LIPA4, CMP3 #### [facility] [address] [place], [place] Chloride [Moles/Vol] 107 mmol/L Normal 98-107 [facility] Comment on above: Performed By: #### H EMDF, LIPA4, CMP3 #### [place] [address] [place], [place] Potassium [Moles/Vol] 4.0 mmol/L Normal 3.5-5.1 [facility] Comment on above: Performed By: #### H EMDF, LIPA4, CMP3 #### [place] [address] [place], [place] Sodium [Moles/Vol] 142 mmol/L Normal 135-145 [facility] Comment on above: Performed By: #### H EMDF, LIPA4, CMP3 #### [place] [address] [place], [place] Hemogramon 07-22-2018 Erythrocyte distribution width (RBC) [Ratio] 12.6 % Normal 11.5-14.5 [facility] Comment on above: Performed By: #### H EMDF, LIPA4, CMP3 #### [facility] [address] [place], [place] Hematocrit (Bld) [Volume fraction] 38.6 % Low 40.0-52.0 [facility] Comment on above: Performed By: #### H EMDF, LIPA4, CMP3 #### [facility] [address] [place] [address] Hemoglobin (Bld) [Mass/Vol] 13.2 g/dL Normal 13.0-18.0 [facility] Comment on above: Performed By: #### H EMDF, LIPA4, CMP3 #### [address] MCH (RBC) [Entitic mass] 30.4 pg Normal 26.0-34.0 [facility] Comment on above: Performed By: #### H EMDF, LIPA4, CMP3 #### [place] [address] [place], [place] MCHC (RBC) [Mass/Vol] 34.1 % Normal 32.0-36.0 [facility] Comment on above: Performed By: #### H EMDF, LIPA4, CMP3 #### [address] MCV (RBC) [Entitic vol] 89.3 fL Normal 80.0-98.0 [facility] Comment on above: Performed By: #### H EMDF, LIPA4, CMP3 #### [address] Platelet mean volume (Bld) [Entitic vol] 8.0 fL Normal 7.4-10.4 [facility] Comment on above: Performed By: #### H EMDF, LIPA4, CMP3 #### [address] Platelets (Bld) [#/Vol] 235 10*3/uL Normal 140-440 [facility] Comment on above: Performed By: #### H EMDF, LIPA4, CMP3 #### [address] RBC (Bld) [#/Vol] 4.32 10*6/uL Low 4.40-5.90 [facility] Comment on above: Performed By: #### H EMDF, LIPA4, CMP3 #### [address] WBC (Bld) [#/Vol] 5.0 10*3/uL Normal 3.6-10.7 [facility] Comment on above: Performed By: #### H EMDF, LIPA4, CMP3 #### [place] [address] [place], [place] Basic Metabolic Panelon 06-1 Calcium [Mass/Vol] 8.3 mg/dL Low 8.4-10.4 [facility] Comment on above: Performed By: #### H EMDF, LIPA4, CMP3 #### [place] [address] [place], [place] Anion gap [Moles/Vol] 10 Normal [facility] Comment on above: Performed By: #### H EMDF, LIPA4, CMP3 #### [address] CO2 [Moles/Vol] 23 mmol/L Normal 22-30 [facility] Comment on above: Performed By: #### H EMDF, LIPA4, CMP3 #### [place] [address] [place], [place] Creatinine [Mass/Vol] 6.80 mg/dL High 0.52-1.25 [facility] Comment on above: Performed By: #### H EMDF, LIPA4, CMP3 #### [place] [address] [place], [place] GFR/1.73 sq M predicted among blacks MDRD (S/P/Bld) [Vol rate/Area] 10.2 mL/min/{1.73_m2} Normal >60 [facility] Comment on above: Performed By: #### H EMDF, LIPA4, CMP3 #### [place] [address] [place], [place] GFR/1.73 sq M predicted among non-blacks MDRD (S/P/Bld) [Vol rate/Area] 8.4 mL/min/{1.73_m2} Normal >60 [facility] Comment on above: Result Comment: Sour ce- MDRD equation with creatinine calibration to IDMS(NKDEP) eGFR not recommended for drug dose adjustment Performed By: #### H EMDF, LIPA4, CMP3 #### [place] [address] [place], [place] Glucose [Mass/Vol] 91 mg/dL Normal 70-100 [facility] Comment on above: Performed By: #### H EMDLynn LIPA4, CMP3 #### [place] [address] [place], [place] Urea nitrogen [Mass/Vol] 94 mg/dL High 7-20 [facility] Comment on above: Performed By: #### H EMDF, LIPA4, CMP3 #### [place] [address] [place], [place] Chloride [Moles/Vol] 107 mmol/L Normal 98-107 [facility] Comment on above: Performed By: #### H EMDLynn LIPA4, CMP3 #### [place] [address] [place], [place] Potassium [Moles/Vol] 3.9 mmol/L Normal 3.5-5.1 [facility] Comment on above: Performed By: #### H EMDLynn LIPA4, CMP3 #### [place] [address] [place], [place] Sodium [Moles/Vol] 140 mmol/L Normal 135-145 [facility] Comment on above: Performed By: #### H EMDLynn LIPA4, CMP3 #### [place] [address] [place], [place] Hemogramon 07-21-2018 Erythrocyte distribution width (RBC) [Ratio] 12.7 % Normal 11.5-14.5 [facility] Comment on above: Performed By: #### H EMDF, LIPA4, CMP3 #### [place] [address] [place], [place] Hematocrit (Bld) [Volume fraction] 35.0 % Low 40.0-52.0 [facility] Comment on above: Performed By: #### H EMDF, LIPA4, CMP3 #### [place] [place], [place] Hemoglobin (Bld) [Mass/Vol] 11.9 g/dL Low 13.0-18.0 [facility] Comment on above: Performed By: #### H EMDF, LIPA4, CMP3 #### [place] [address] [place], [place] MCH (RBC) [Entitic mass] 30.5 pg Normal 26.0-34.0 [facility] Comment on above: Performed By: #### H EMDF, LIPA4, CMP3 #### [place] [address] [place], [place] MCHC (RBC) [Mass/Vol] 34.0 % Normal 32.0-36.0 [facility] Comment on above: Performed By: #### H EMDF, LIPA4, CMP3 #### [address] MCV (RBC) [Entitic vol] 89.6 fL Normal 80.0-98.0 [facility] Comment on above: Performed By: #### H EMDF, LIPA4, CMP3 #### [address] Platelet mean volume (Bld) [Entitic vol] 7.8 fL Normal 7.4-10.4 [facility] Comment on above: Performed By: #### H EMDF, LIPA4, CMP3 #### [place] [address] [place], [place] Platelets (Bld) [#/Vol] 235 10*3/uL Normal 140-440 [facility] Comment on above: Performed By: #### H EMDF, LIPA4, CMP3 #### [place] [address] [place], [place] RBC (Bld) [#/Vol] 3.90 10*6/uL Low 4.40-5.90 [facility] Comment on above: Performed By: #### H EMDF, LIPA4, CMP3 #### [address] WBC (Bld) [#/Vol] 6.0 10*3/uL Normal 3.6-10.7 [facility] Comment on above: Performed By: #### H EMDF, LIPA4, CMP3 #### [place] [address] [place], [place] TS GELon 07-21-2018 TS GEL ABO Group: O Rh, Gel: POS Antibody Screen Gel: NEG Normal [facility] Comment on above: Performed By: #### H EMDF, LIPA4, CMP3 #### [facility] [address] [place], [place] Acute Hepatitis Panelon 07-07 Hep B Core IgM NOT DETECTED Normal Not-Detect ed [facility] Comment on above: Performed By: #### H EMDF, LIPA4, CMP3 #### [facility] [address] [place], [place] Hep A Virus Ab,IgM NOT DETECTED Normal Not-Detec t [facility] Comment on above: Performed By: #### H EMDF, LIPA4, CMP3 #### [facility] [address] [place], [place] Hep C Antibody NOT DETECTED Normal Not-Detect ed [facility] Comment on above: Result Comment: Fide ents with DETECTED Hepatitis C Ab results should have a new specimen submitted for supplemental testing with a Hepatitis C Quantitative RNA assay (viral load), if clinically indicated. Performed By: #### H EMDF, LIPA4, CMP3 #### [facility] [address] [place], [place] Hep B Surface Ag NOT DETECTED Normal Not-Detect [facility] Comment on above: Performed By: #### H EMDF, LIPA4, CMP3 #### [facility] [address] [place], [place] CT Abdomen/Pelvis w/o Contra ston 07-20-2018 CT Abdomen/Pelvis w/o Contrast Patient Name: EDMOND LAMA CT Exam Date/Time 07/20/2018 13:57:[address] Abdomen/Pelvis (No PO, No IV) Ordering Physician ANDREEA HIDALGO MD Accession Number [id number] CPT4 Codes 07924 (CT Abdomen/Pelvis (No PO, No IV)) Reason [...] Time: 07/20/2018 2:36 Normal [facility] Cell Count,Body Fluidon 07-07 Nucleated Cells 3263 {cells}/uL Normal [facility] Comment on above: Result Comment: slid e sent for path review Performed By: #### C UA2, FLDCC, GLMS3, LDMS3, DIFBF #### [place] [place] [address] RBC Count Body Fld 463 {RBC}/uL Normal [facility] Comment on above: Performed By: #### C UA2, FLDCC, GLMS3, LDMS3, DIFBF #### [place] [address] [place], [place] Fluid Type Peritoneal Normal [facility] Comment on above: Performed By: #### C UA2, FLDCC, GLMS3, LDMS3, DIFBF #### [place] [address] [place], [place] Differential,Body Fluidson 0 07-20-2018 Other Cells 5 % Normal [facility] Comment on above: Result Comment: Reac tive mesothelial cells and mixed acute and chronic inflammatory cells. manager play Performed By: #### C UA2, FLDCC, GLMS3, LDMS3, DIFBF #### [place] [address] [place], [place] Lymphocytes/100 WBC (Bld) 15 % Normal [facility] Comment on above: Performed By: #### C UA2, FLDCC, GLMS3, LDMS3, DIFBF #### [place] [address] [place], [place] Macrophages 9 % Normal [facility] Comment on above: Performed By: #### C UA2, FLDCC, GLMS3, LDMS3, DIFBF #### [place] [address] [place], [place] Monocytes/100 WBC (Bld) 20 % Normal [facility] Comment on above: Performed By: #### C UA2, FLDCC, GLMS3, LDMS3, DIFBF #### [place] [place] [address] Neutrophils/100 WBC (Bld) 51 % Normal [facility] Comment on above: Performed By: #### C UA2, FLDCC, GLMS3, LDMS3, DIFBF #### [facility] [address] [place], [place] Cells Counted for Diff 100 Normal [facility] Comment on above: Performed By: #### C UA2, FLDCC, GLMS3, LDMS3, DIFBF #### [facility] [address] [place], [place] Glucose, Body Fluidon 2018 Glucose, Body Fluid 81 mg/dL Normal No Range [facility] Comment on above: Performed By: #### C UA2, FLDCC, GLMS3, LDMS3, DIFBF #### [facility] [address] [place], [place] Hep B Surface Abon 9 Hep B Surface Ab 20.3 m[IU]/mL Normal [facility] Comment on above: Result Comment: Inte rpretation: <8.0 Non-Reactive 8.0-11.9 Equivocal >= 12.0 Ab Detected Performed By: #### H EMDF, LIPA4, CMP3 #### [facility] [address] [place], [place] LDH, Body Fluidon 07-20-2018 Fluid Type Acites Normal [facility] Comment on above: Performed By: #### C UA2, FLDCC, GLMS3, LDMS3, DIFBF #### [facility] [address] [place], [place] LDH, Body Fluid 81 U/L Normal No Range [facility] Comment on above: Performed By: #### C UA2, FLDCC, GLMS3, LDMS3, DIFBF #### [facility] [address] [place], [place] Prothrombin Timeon 9 INR Coag (PPP) [Relative time] 1.0 Normal 0.9-1.1 [facility] Comment on above: Result Comment: Miles mmended [...] EMDF, LIPA4, CMP3 #### [facility] [address] [place] [address] PT Coag (PPP) [Time] 10.5 s Normal 9.0-12.0 [facility] Comment on above: Result Comment: . Performed By: #### H EMDF, LIPA4, CMP3 #### [facility] [address] [place] [address] STAIN GRAMon 07-20-2018 STAIN GRAM STAIN GRAM --> Statu s: F Cytocentrifugation performed. Many mononuclear cells/lpf Many polymorphonuclear cells/lpf. Few gram positive bacilli. Many mononuclear cells/lpf Many polymorphonuclear cells/lpf. Few gram positive bacilli. Normal [facility] Comment on above: Order Comment: Speci men Source Comment:Ascitic Fluid Performed By: #### S /GRM, CXFLD #### [facility] [address] [place] [address] XA Special Angiography Proce dureon 07-20-2018 XA Special Angiography Procedure Patient Name: EDMOND LAMA Special Procedures Exam Date/Time 07/20/2018 16:54:56 EDT Exam XA Special Angiography Procedure Ordering Physician NARESH JIMENEZ Accession Number [id number] Reason For Exam place tunnel dialysis cvc [...] microguidewire was placed, over which a 5 Trin[place] sheath was placed. A subcutaneous tunnel was [...] Time: 07/20/2018 4:55 Normal [facility] Comp Metabolic Panelon 07-19 Creatinine [Mass/Vol] 6.79 mg/dL High 0.52-1.25 [facility] Comment on above: Performed By: #### H EMDF, LIPA4, CMP3 #### [address] [address] GFR/1.73 sq M predicted among blacks MDRD (S/P/Bld) [Vol rate/Area] 10.2 mL/min/{1.73_m2} Normal >60 [facility] Comment on above: Performed By: #### H EMDF, LIPA4, CMP3 #### [facility] [address] [place], [place] GFR/1.73 sq M predicted among non-blacks MDRD (S/P/Bld) [Vol rate/Area] 8.4 mL/min/{1.73_m2} Normal >60 [facility] Comment on above: Result Comment: Sour ce- MDRD equation with creatinine calibration to IDMS(NKDEP) eGFR not recommended for drug dose adjustment Performed By: #### H EMDF, LIPA4, CMP3 #### [facility] [address], [place] ALP [Catalytic activity/Vol] 137 U/L High 38-126 [facility] Comment on above: Performed By: #### H EMDF, LIPA4, CMP3 #### [facility] [address], [place] ALT [Catalytic activity/Vol] 18 U/L Normal 13-69 [facility] Comment on above: Performed By: #### H EMDF, LIPA4, CMP3 #### [facility] [address] [place], [place] Anion gap [Moles/Vol] 14 Normal [facility] Comment on above: Performed By: #### H EMDF, LIPA4, CMP3 #### [facility] [address], [place] AST [Catalytic activity/Vol] 27 U/L Normal 15-46 [facility] Comment on above: Performed By: #### H EMDF, LIPA4, CMP3 #### [facility] [address], [place] Bilirubin [Mass/Vol] 0.4 mg/dL Normal 0.2-1.3 [facility] Comment on above: Performed By: #### H EMDF, LIPA4, CMP3 #### [facility] [address] [place], [place] Calcium [Mass/Vol] 8.1 mg/dL Low 8.4-10.4 [facility] Comment on above: Performed By: #### H EMDF, LIPA4, CMP3 #### [facility] [address] [place] [address] CO2 [Moles/Vol] 28 mmol/L Normal 22-30 [facility] Comment on above: Performed By: #### H EMDF, LIPA4, CMP3 #### [facility] [address] [place], [place] Glucose [Mass/Vol] 106 mg/dL High 70-100 [facility] Comment on above: Performed By: #### H EMDF, LIPA4, CMP3 #### [facility] [address] [place], [place] Protein [Mass/Vol] 6.0 g/dL Low 6.3-8.2 [facility] Comment on above: Performed By: #### H EMDF, LIPA4, CMP3 #### [facility] [address] [place], [place] Urea nitrogen [Mass/Vol] 94 mg/dL High 7-20 [facility] Comment on above: Performed By: #### H EMDF, LIPA4, CMP3 #### [facility] [address] [place], [place] Albumin [Mass/Vol] 3.1 g/dL Low 3.5-5.0 [facility] Comment on above: Performed By: #### H EMDF, LIPA4, CMP3 #### [facility] [address] [place], [place] Chloride [Moles/Vol] 97 mmol/L Low 98-107 [facility] Comment on above: Performed By: #### H EMDF, LIPA4, CMP3 #### [facility] [address] [place], [place] Potassium [Moles/Vol] 3.2 mmol/L Low 3.5-5.1 [facility] Comment on above: Performed By: #### H EMDF, LIPA4, CMP3 #### [facility] [address] [place], [place] Sodium [Moles/Vol] 139 mmol/L Normal 135-145 [facility] Comment on above: Performed By: #### H EMDF, LIPA4, CMP3 #### [place] [address] [place], [place] Complete Urinalysison 2018 Appearance (U) Clear Normal [facility] Comment on above: Result Comment: Refe rence Range: Clear Performed By: #### C UA2, FLDCC, GLMS3, LDMS3, DIFBF #### [place] [address] [place], [place] Bilirubin,Urine Negative Normal [facility] Comment on above: Result Comment: Refe rence Range: Negative Performed By: #### C UA2, FLDCC, GLMS3, LDMS3, DIFBF #### [place] [address] [place], [place] Color (U) Light-Yellow Normal [facility] Comment on above: Result Comment: Refe rence Range: Lt. Yellow Performed By: #### C UA2, FLDCC, GLMS3, LDMS3, DIFBF #### [address] [address] [place], [place] Glucose Ql (U) Normal Normal [facility] Comment on above: Result Comment: Refe rence Range: Normal (<70) Performed By: #### C UA2, FLDCC, GLMS3, LDMS3, DIFBF #### [address] [address] [place], [place] Ketone,Urine Negative Normal [facility] Comment on above: Result Comment: Refe rence Range: Negative Performed By: #### C UA2, FLDCC, GLMS3, LDMS3, DIFBF #### [address] [address] [place], [place] Leukocytes,Urine Negative Normal [facility] Comment on above: Result Comment: Refe rence Range: Negative Performed By: #### C UA2, FLDCC, GLMS3, LDMS3, DIFBF #### [address] [address] [place], [place] Nitrites,Urine Negative Normal [facility] Comment on above: Result Comment: Refe rence Range: Negative Performed By: #### C UA2, FLDCC, GLMS3, LDMS3, DIFBF #### [address] Occult Blood,Urine Negative Normal [facility] Comment on above: Result Comment: Refe rence Range: Negative Performed By: #### C UA2, FLDCC, GLMS3, LDMS3, DIFBF #### [address] pH (U) 6.5 Normal 5.0-8.0 [facility] Comment on above: Performed By: #### C UA2, FLDCC, GLMS3, LDMS3, DIFBF #### [address] Protein (U) [Mass/Vol] 10 mg/dL Normal [facility] Comment on above: Result Comment: Refe rence Range: Negative Performed By: #### C UA2, FLDCC, GLMS3, LDMS3, DIFBF #### [address] RBC LM.HPF (Urine sed) [#/Area] 0 - 2 Normal [facility] Comment on above: Result Comment: Refe rence Range: 0-2 Performed By: #### C UA2, FLDCC, GLMS3, LDMS3, DIFBF #### [address] Specific [place],Urine 1.007 Normal 1.005-1.03 0 [facility] Comment on above: Performed By: #### C UA2, FLDCC, GLMS3, LDMS3, DIFBF #### [address] Urobilinogen,Urine Normal Normal [facility] Comment on above: Result Comment: Refe rence Range: Normal (0-1) Performed By: #### C UA2, FLDCC, GLMS3, LDMS3, DIFBF #### [address] Hemogram w/ Autodiffon 07-19 Abs Baso Cnt 0.0 10*3/uL Normal 0.0-0.2 [facility] Comment on above: Performed By: #### H EMDF, LIPA4, CMP3 #### [facility] [address] [place], [place] Abs Neutrophile Cnt 4.4 10*3/uL Normal 1.8-7.0 [facility] Comment on above: Performed By: #### H EMDF, LIPA4, CMP3 #### [address] [address] [place], [place] Basophils/100 WBC (Bld) 0.6 % Normal 0.0-2.0 [facility] Comment on above: Performed By: #### H EMDF, LIPA4, CMP3 #### [address] [address] [place], [place] Eosinophils (Bld) [#/Vol] 0.2 10*3/uL Normal 0.0-0.5 [facility] Comment on above: Performed By: #### H EMDF, LIPA4, CMP3 #### [address] [address] [place], [place] Eosinophils/100 WBC (Bld) 2.7 % Normal 1.0-6.0 [facility] Comment on above: Performed By: #### H EMDF, LIPA4, CMP3 #### [address] [address] [place], [place] Erythrocyte distribution width (RBC) [Ratio] 12.7 % Normal 11.5-14.5 [facility] Comment on above: Performed By: #### H EMDF, LIPA4, CMP3 #### [address] [address] [place], [place] Granulocytes/100 WBC (Bld) 78.0 % Normal 40.0-80.0 [facility] Comment on above: Performed By: #### H EMDF, LIPA4, CMP3 #### [address] [address] [place], [place] Hematocrit (Bld) [Volume fraction] 35.4 % Low 40.0-52.0 [facility] Comment on above: Performed By: #### H EMDF, LIPA4, CMP3 #### [address] [address] [place], [place] Hemoglobin (Bld) [Mass/Vol] 12.4 g/dL Low 13.0-18.0 [facility] Comment on above: Performed By: #### H EMDF, LIPA4, CMP3 #### [address] [address] [place], [place] Lymphocytes (Bld) [#/Vol] 0.4 10*3/uL Low 1.0-4.3 [facility] Comment on above: Performed By: #### H EMDF, LIPA4, CMP3 #### [address] Lymphocytes/100 WBC (Bld) 7.7 % Low 20.0-40.0 [facility] Comment on above: Performed By: #### H EMDF, LIPA4, CMP3 #### [address] MCH (RBC) [Entitic mass] 30.8 pg Normal 26.0-34.0 [facility] Comment on above: Performed By: #### H EMDF, LIPA4, CMP3 #### [address] MCHC (RBC) [Mass/Vol] 35.0 % Normal 32.0-36.0 [facility] Comment on above: Performed By: #### H EMDF, LIPA4, CMP3 #### [address] [address] [place], [place] MCV (RBC) [Entitic vol] 88.0 fL Normal 80.0-98.0 [facility] Comment on above: Performed By: #### H EMDF, LIPA4, CMP3 #### [address] Monocytes (Bld) [#/Vol] 0.6 10*3/uL Normal 0.0-0.8 [facility] Comment on above: Performed By: #### H EMDF, LIPA4, CMP3 #### [address] [address] [place], [place] Monocytes/100 WBC (Bld) 11.0 % High 2.0-10.0 [facility] Comment on above: Performed By: #### H EMDF, LIPA4, CMP3 #### [address] [address] [place], [place] Platelet mean volume (Bld) [Entitic vol] 7.8 fL Normal 7.4-10.4 [facility] Comment on above: Performed By: #### H EMDF, LIPA4, CMP3 #### [address] [address] [place], [place] Platelets (Bld) [#/Vol] 228 10*3/uL Normal 140-440 [facility] Comment on above: Performed By: #### H EMDF, LIPA4, CMP3 #### [address] [address] [place], [place] RBC (Bld) [#/Vol] 4.03 10*6/uL Low 4.40-5.90 [facility] Comment on above: Performed By: #### H EMDF, LIPA4, CMP3 #### [address] [address] [place], [place] WBC (Bld) [#/Vol] 5.6 10*3/uL Normal 3.6-10.7 [facility] Comment on above: Performed By: #### H EMDF, LIPA4, CMP3 #### [address] [address] [place], [place] Lipaseon 07-19-2018 Lipase [Catalytic activity/Vol] 246 U/L Normal 23-300 [facility] Comment on above: Performed By: #### H EMDF, LIPA4, CMP3 #### [address] [address] [place], [place] Vital Signs Date Time Vital Sign Value Performing Clinician Facility 06-26-2024 14:14-0400 Body height 177.8 cm Ace Messina MD Work Phone: [facility] 06-26-2024 14:14-0400 Body mass index (BMI) [Ratio] 34.44 kg/m2 Ace Messina MD Work Phone: [facility] 06-26-2024 14:14-0400 Body weight 108.86 kg Ace Messina MD Work Phone: [facility] 06-26-2024 14:14-0400 Diastolic blood pressure 68 mm[Hg] Ace Messina MD Work Phone: [facility] 06-26-2024 14:14-0400 Heart rate 68 /min Ace Messina MD Work Phone: [facility] 06-26-2024 14:14-0400 Respiratory rate 15 /min Ace Messina MD Work Phone: [facility] 06-26-2024 14:14-0400 Systolic blood pressure 134 mm[Hg] Ace Messina MD Work Phone: [facility] 05-13-2024 09:29-0400 Diastolic blood pressure 72 mm[Hg] Minor Barbersotamir DO Work Phone: [facility] 05-13-2024 09:29-0400 Heart rate 60 /min Minor Barbersotamir DO Work Phone: [facility] 05-13-2024 09:29-0400 Systolic blood pressure 156 mm[Hg] Minor Barbersoa DO Work Phone: [facility] 05-13-2024 08:31-0400 Body height 177.8 cm Minor Barbersoa DO Work Phone: [facility] 05-13-2024 08:31-0400 Body mass index (BMI) [Ratio] 34.98 kg/m2 Minor Barbersoa DO Work Phone: [facility] 05-13-2024 08:31-0400 Body temperature 97.2 [degF] Minor Barberenma DO Work Phone: [facility] 05-13-2024 08:31-0400 Body weight 110.59 kg Minor Beasley DO Work Phone: [facility] 05-13-2024 08:31-0400 SaO2% (BldA) [Mass fraction] 98 % Minor Beasley DO Work Phone: [facility] 04-24-2024 14:24-0400 Body height 177.8 cm Regi Zhao EMPLOYEE SERVICE OFFICER - MAINTENANCE TRAINER Work Phone: [facility] 04-24-2024 14:24-0400 Body mass index (BMI) [Ratio] 35.15 kg/m2 Regi Zhao EMPLOYEE SERVICE OFFICER - MAINTENANCE TRAINER Work Phone: [facility] 04-24-2024 14:24-0400 Body weight 111.13 kg Regi Zhao EMPLOYEE SERVICE OFFICER - MAINTENANCE TRAINER Work Phone: [facility] 04-24-2024 14:24-0400 Diastolic blood pressure 72 mm[Hg] Regi Zhao EMPLOYEE SERVICE OFFICER - MAINTENANCE TRAINER Work Phone: [facility] 04-24-2024 14:24-0400 Heart rate 55 /min Regi Zhao EMPLOYEE SERVICE OFFICER - MAINTENANCE TRAINER Work Phone: [facility] 04-24-2024 14:24-0400 Systolic blood pressure 136 mm[Hg] Regi Zhao EMPLOYEE SERVICE OFFICER - MAINTENANCE TRAINER Work Phone: [facility] 04-16-2024 14:03-0400 Body height 177.8 cm Ace Messina MD Work Phone: [facility] 04-16-2024 14:03-0400 Body mass index (BMI) [Ratio] 34.44 kg/m2 Ace Messina MD Work Phone: [facility] 04-16-2024 14:03-0400 Body weight 108.86 kg Ace Messina MD Work Phone: [facility] 12-25-2023 13:22-0500 Body height 177.8 cm Ace Messina MD Work Phone: [facility] 12-25-2023 13:22-0500 Body mass index (BMI) [Ratio] 34.47 kg/m2 Ace Messina MD Work Phone: [facility] 12-25-2023 13:22-0500 Body weight 108.95 kg Ace Messina MD Work Phone: [facility] 12-25-2023 13:22-0500 Diastolic blood pressure 70 mm[Hg] Ace Messina MD Work Phone: [facility] 12-25-2023 13:22-0500 Heart rate 83 /min Ace Messina MD Work Phone: [facility] 12-25-2023 13:22-0500 SaO2% (BldA) [Mass fraction] 100 % Ace Messina MD Work Phone: [facility] 12-25-2023 13:22-0500 Systolic blood pressure 110 mm[Hg] Ace Messina MD Work Phone: [facility] 04-10-2023 09:45-0500 Body height 175.3 cm Ace Messina MD Work Phone: [facility] 04-10-2023 09:45-0500 Body mass index (BMI) [Ratio] 36.77 kg/m2 Ace Messina MD Work Phone: [facility] 04-10-2023 09:45-0500 Body weight 112.95 kg Ace Messina MD Work Phone: [facility] 04-06-2023 11:49-0500 Body height 175.3 cm Minor Beasley DO Work Phone: [facility] 04-06-2023 11:49-0500 Body mass index (BMI) [Ratio] 36.77 kg/m2 Minor Beasley DO Work Phone: [facility] 04-06-2023 11:49-0500 Body temperature 97.3 [degF] Minor Beasley DO Work Phone: [facility] 04-06-2023 11:49-0500 Body weight 112.95 kg Minor Beasley DO Work Phone: [facility] 04-06-2023 11:49-0500 Diastolic blood pressure 60 mm[Hg] Minor Beasley DO Work Phone: [facility] 04-06-2023 11:49-0500 Heart rate 59 /min Minor Yepeza DO Work Phone: [facility] 04-06-2023 11:49-0500 SaO2% (BldA) [Mass fraction] 98 % Minor Yepeza DO Work Phone: [facility] 04-06-2023 11:49-0500 Systolic blood pressure 118 mm[Hg] Minor Yepeza DO Work Phone: [facility] 09-26-2022 12:32-0400 Body height 175.3 cm Minor Beasley DO Work Phone: [facility] 09-26-2022 12:32-0400 Body mass index (BMI) [Ratio] 36.77 kg/m2 Minor Beasley DO Work Phone: [facility] 09-26-2022 12:32-0400 Body temperature 97.3 [degF] Minor Beasley DO Work Phone: [facility] 09-26-2022 12:32-0400 Body weight 112.95 kg Minor Beasley DO Work Phone: [facility] 09-26-2022 12:32-0400 Diastolic blood pressure 71 mm[Hg] Minor Yepeza DO Work Phone: [facility] 09-26-2022 12:32-0400 Heart rate 55 /min Minor Beasley DO Work Phone: [facility] 09-26-2022 12:32-0400 SaO2% (BldA) [Mass fraction] 98 % Minor Yepeza DO Work Phone: [facility] 09-26-2022 12:32-0400 Systolic blood pressure 126 mm[Hg] Minor Yepeza DO Work Phone: [facility] 03-22-2022 08:05-0500 Body height 175.3 cm Ace Messina MD Work Phone: [facility] 03-22-2022 08:05-0500 Body mass index (BMI) [Ratio] 36.33 kg/m2 Ace Messina MD Work Phone: [facility] 03-22-2022 08:05-0500 Body weight 111.58 kg Ace Messina MD Work Phone: [facility] 08-16-2021 14:17-0400 Body mass index (BMI) [Ratio] 35.18 kg/m2 Louie HERR Work Phone: [facility] 08-16-2021 14:17-0400 Body temperature 97.7 [degF] Louie HERR Work Phone: [facility] 08-16-2021 14:17-0400 Body weight 108.05 kg Louie HERR Work Phone: [facility] 08-16-2021 14:17-0400 Diastolic blood pressure 69 mm[Hg] Louie HERR Work Phone: [facility] 08-16-2021 14:17-0400 Heart rate 66 /min Louie HERR Work Phone: [facility] 08-16-2021 14:17-0400 Systolic blood pressure 107 mm[Hg] Louie HERR Work Phone: [facility] 07-07-2021 08:05-0400 Body height 175.3 cm Renee Calle EMPLOYEE SERVICE OFFICER-MAINTENANCE TRAINER Work Phone: [facility] 07-07-2021 08:05-0400 Body mass index (BMI) [Ratio] 35.44 kg/m2 Renee Calle EMPLOYEE SERVICE OFFICER-MAINTENANCE TRAINER Work Phone: [facility] 07-07-2021 08:05-0400 Body weight 108.86 kg Renee Calle EMPLOYEE SERVICE OFFICER-MAINTENANCE TRAINER Work Phone: [facility] 07-07-2021 08:05-0400 Diastolic blood pressure 85 mm[Hg] Renee Calle EMPLOYEE SERVICE OFFICER-MAINTENANCE TRAINER Work Phone: [facility] 07-07-2021 08:05-0400 Heart rate 55 /min Renee Clale EMPLOYEE SERVICE OFFICER-MAINTENANCE TRAINER Work Phone: [facility] 07-07-2021 08:05-0400 Systolic blood pressure 119 mm[Hg] Renee Calle EMPLOYEE SERVICE OFFICER-MAINTENANCE TRAINER Work Phone: [facility] 07-06-2021 19:27-0400 Body temperature 98.01 [degF] Azalea Leigh MD Work Phone: 1(637)835-018972 [place] [address] 07-06-2021 19:27-0400 Diastolic blood pressure 75 mm[Hg] Azalea Leigh MD Work Phone: 9(208)155-983372 [place] [address] 07-06-2021 19:27-0400 Systolic blood pressure 135 mm[Hg] Azalea Leigh MD Work Phone: 9(811)456-498972 [place] [address] 07-06-2021 19:00-0400 Heart rate 50 /min Azalea Leigh MD Work Phone: 7(086)271-385472 [place] [address] 07-06-2021 19:00-0400 Respiratory rate 20 /min Azalea Leigh MD Work Phone: 1(934)488-060472 [place] [address] 07-06-2021 19:00-0400 SaO2% (BldA) [Mass fraction] 96 % Azalea Leigh MD Work Phone: 1(107)690-950372 [place] [address] 07-06-2021 06:28-0400 Body height 175.3 cm Azalea Leigh MD Work Phone: 9(644)986-348472 [place] [address] 07-06-2021 06:28-0400 Body mass index (BMI) [Ratio] 35.44 kg/m2 Azalea Leigh MD Work Phone: [facility] 07-06-2021 06:28-0400 Body weight 108.86 kg Azalea Leigh MD Work Phone: [facility] 10-09-2018 13:30-0400 Body Temperature 97.5 [degF] Libby Spivey [employer] [place] [facility] [place] 10-09-2018 13:30-0400 BP Diastolic 83 mm[Hg] [facility] [place] 10-09-2018 13:30-0400 BP Systolic 159 mm[Hg] Libby [facility] Intelligence[facility] [place] 10-09-2018 13:30-0400 Pulse (Heart Rate) 55 /min [facility]by [facility] [place] 10-09-2018 13:30-0400 Pulse Oximetry 97 % Libby Spivey [facility] [place] 10-09-2018 13:30-0400 Respiratory Rate 16 /min [facility]ive[facility] [place] 10-09-2018 07:56-0400 BMI (Body Mass Index) 30.42 kg/m2 [facility] [place] 10-09-2018 07:56-0400 Body weight 93.44 kg [facility] [place] 10-09-2018 07:56-0400 Height 175.3 cm Libby Felix [facility] , [place] 09-20-2018 16:34-0400 BMI (Body Mass Index) 30.42 kg/m2 Libby [facility]oAn[facility] Intelligencequentin [facility] [place] 09-20-2018 16:34-0400 Body Temperature 98.71 [degF] Libby Tam[facility] Intelligencequentin [employer] [place] 09-20-2018 16:34-0400 Body weight 93.44 kg Libby Spivey [facility] [place] 09-20-2018 16:34-0400 BP Diastolic 68 mm[Hg] Libby TamayoAn[facility] Intelligencequentin [facility] [place] 09-20-2018 16:34-0400 BP Systolic 114 mm[Hg] Libby TamayoAn[facility] Healthcare Intelligencequentin [facility] [place] 09-20-2018 16:34-0400 Height 175.3 cm Libby Spivey [facility] , [place] 09-20-2018 16:34-0400 Pulse (Heart Rate) 54 /min [facility]2018 16:34-0400 Pulse Oximetry 96 % Libby Felix [facility] [place] 09-20-2018 16:34-0400 Respiratory Rate 16 /min Libby Felix [facility], [place] NEGATED: Highlighted [id number] 08:41-0400 BMI (Body Mass Index) 34.09 kg/m2 Paulina Jenniffer TODDLER CAREGIVER [facility] Work Phone: NEGATED: Highlighted [id number] 08:41-0400 Body weight 104.33 kg Paulina Jenniffer TODDLER CAREGIVER [facility] Work Phone: NEGATED: Highlighted [id number] 08:41-0400 Body weight 105 kg Paulina Jenniffer TODDLER CAREGIVER [facility] Work Phone: NEGATED: Highlighted [id number] 08:41-0400 Height 175.26 cm Paulina Jenniffer TODDLER CAREGIVER [facility] Work Phone: NEGATED: Highlighted [id number] 08:41-0400 Height 175 cm Paulina Jenniffer TODDLER CAREGIVER [facility] Work Phone: Encounters Encounter Date Encounter Type Care Provider Facility Start: 08-06-2024 End: 08-06-2024 Refill Ace Messina MD Work Phone: [facility] [place] Start: 07-12-2024 End: 07-12-2024 Refill Minor Beasley DO Work Phone: [facility] [place] Start: 06-26-2024 End: 06-26-2024 Office outpatient visit 40 minutes Ace Messina MD Work Phone: [facility] [place] Comment on above: Palpitations (Primar y Dx); Nonrheumatic aortic valve insufficiency Start: 06-26-2024 End: 06-26-2024 ambulatory [facility] Start: 06-07-2024 End: 06-07-2024 [facility] [place] Comment on above: Primary hypertension Start: 05-27-2024 End: 05-29-2024 Telephone encounter Minor Beasley DO Work Phone: [facility] [place] Comment on above: Reschedule Start: 05-13-2024 End: 05-13-2024 Office outpatient visit 25 minutes Minor Beasley DO Work Phone: [facility] [place] Comment on above: Primary hypertension (Primary Dx); Gout, unspecified cause, unspecified chronicity, unspecified site; Prostate cancer screening; Polycystic kidney disease; Viral URI; Aortic valve insufficiency, etiology of cardiac valve disease unspecified; PAF (paroxysmal atrial fibrillation) (HCC); Chronic anticoagulation; History of renal transplant Start: 05-13-2024 End: 05-13-[address] [facility] Start: 04-26-2024 End: 04-30-2024 Telephone encounter Ace Messina MD Work Phone: [facility] [place] Start: 04-24-2024 End: 04-24-2024 Office outpatient visit 25 minutes Regi Zhao APRN - MAINTENANCE TRAINER Work Phone: [facility] - [place] Comment on above: Chest pain, unspecif ied type Start: 04-24-2024 End: 04-24-2024 ambulatory [facility] Start: 04-16-2024 End: 04-16-2024 Subsequent hospital visit by physician Ace Messina MD Work Phone: [facility] Non-Invasive Cardiology Comment on above: PAF (paroxysmal atri al fibrillation) (HCC); Dilatation of aortic sinus of Valsalva; Aortic valve insufficiency, etiology of cardiac valve disease unspecified Start: 04-16-2024 End: 04-16-2024 ambulatory [facility] Start: 04-03-2024 End: 04-03-[address] Ramon Carrillo MD Work Phone: [facility] Work Phone: Start: 04-03-2024 End: 04-03-[address] Dilan Grayson MD -Laboratory, [place] Work Phone: Start: 04-03-2024 End: 04-03-2024 ambulatory Dilan Grayson Facility:[facility] Start: 02-14-2024 End: 02-14-2024 Refill Ace Messina MD Work Phone: [facility] Start: 01-31-2024 End: 02-01-2024 Refill Minor Beasley DO Work Phone: [facility] Start: 01-05-2024 End: 01-05-2024 Refill Minor Lynn Delfin DO Work Phone: [facility] Start: 12-25-2023 End: 12-25-2023 Office outpatient visit 40 minutes Ace Messina MD Work Phone: [facility] Comment on above: Dilatation of aortic sinus of Valsalva (Primary Dx); PAF (paroxysmal atrial fibrillation) (HCC); Aortic valve insufficiency, etiology of cardiac valve disease unspecified Start: 12-25-2023 End: 12-25-2023 ambulatory [facility] Start: 12-06-2023 End: 12-06-2023 Refill Minor Bailey Luchotamir DO Work Phone: [facility] Start: 11-27-2023 End: 11-27-2023 ambulatory [facility] Start: 09-26-2023 End: 09-26-2023 ambulatory Ramon Carrillo Facility:[facility] Start: 07-31-2023 End: 07-31-2023 Orders Only Minor Beasley DO Work Phone: [facility] Start: 06-28-2023 Refill Minor Barber lla DO Work Phone: [facility] Start: 05-30-2023 Refill iMnor Barber lla DO Work Phone: [facility] Start: 04-10-2023 End: 04-10-2023 Subsequent hospital visit by physician Ace Messina MD Work Phone: [facility] Non-Invasive Cardiology Comment on above: PAF (paroxysmal atri al fibrillation) (HCC); Dilatation of aortic sinus of Valsalva Start: 04-06-2023 End: 04-06-2023 Office outpatient visit 25 minutes Minor Barberlla DO Work Phone: [facility] Comment on above: Gastroesophageal ref lux disease without esophagitis (Primary Dx); Primary hypertension; PAF (paroxysmal atrial fibrillation) (HCC); Aortic valve insufficiency, etiology of cardiac valve disease unspecified; Polycystic kidney disease; History of renal transplant; Prostate cancer screening; Hyperlipidemia, unspecified hyperlipidemia type Start: 03-31-2023 End: 03-31-2023 ambulatory [facility] Work Phone: Start: 03-31-2023 End: 03-31-2023 Patient encounter procedure [facility] Work Phone: Start: 02-02-2023 Refill Minor Barber lla DO Work Phone: [facility] Start: 12-22-2022 Refill Minor Barber lla DO Work Phone: [facility] Clinical Communication Start: 10-14-2022 Patient encounter procedure [facility] Work Phone: Start: 10-11-2022 End: 10-11-2022 ambulatory [facility] Work Phone: Start: 10-11-2022 End: 10-11-2022 Patient encounter procedure [facility] Work Phone: Start: 09-26-2022 End: 09-26-2022 Office outpatient visit 15 minutes Minor F Delfin DO Work Phone: [facility] Comment on above: Primary hypertension (Primary Dx); History of renal transplant; Gastroesophageal reflux disease without esophagitis; Statin intolerance; PAF (paroxysmal atrial fibrillation) (CMS/HCC) (HCC) Start: 07-27-2022 Refill Sarah Charles PA-C Work Phone: [facility] Start: 06-10-2022 Refill Minor Bailey Amos rizzotamir DO Work Phone: [facility] Start: 05-26-2022 End: 06-05-2022 ambulatory [facility] Work Phone: Start: 05-26-2022 End: 06-05-2022 Discharged Recurring [facility] Start: 03-24-2022 End: 03-24-2022 Discharged Recurring [facility] Start: 03-22-2022 End: 03-22-2022 Subsequent hospital visit by physician Ace Messina MD Work Phone: [facility] Comment on above: Paroxysmal atrial fi brillation (CMS/HCC) (HCC); Dilated aortic root (CMS/HCC) (HCC) Start: 02-01-2022 End: 02-01-2022 ambulatory [facility] Work Phone: Start: 02-01-2022 End: 02-01-2022 Discharged Recurring [facility] Start: 12-07-2021 ambulatory MINOR BEASLEY [facility] Start: 11-22-2021 End: 11-22-2021 ambulatory [facility] Work Phone: Start: 11-22-2021 End: 11-22-2021 Discharged Recurring [facility] Start: 09-22-2021 End: 09-22-2021 ambulatory [facility] Work Phone: Start: 09-22-2021 End: 09-22-2021 Discharged Recurring [facility] Start: 08-16-2021 ambulatory MINOR BEASLEY Facilit y:[facility] Start: 08-16-2021 End: 08-16-2021 Office outpatient visit 40 minutes Louie HERR Work Phone: [facility] Comment on above: Kidney replaced by t ransplant (Primary Dx); Abnormal blood chemistry; Aftercare following organ transplant; Immunosuppressed status; High risk medication use Start: 07-22-2021 End: 08-05-2021 Discharged Recurring [facility] Start: 07-07-2021 End: 07-07-2021 Office outpatient visit 15 minutes Renee Calle EMPLOYEE SERVICE OFFICER-MAINTENANCE TRAINER Work Phone: Process Camera Operator [facility] Comment on above: Paroxysmal atrial fi brillation (Primary Dx); Hypertension, essential Start: 07-07-2021 ambulatory RENEE CALLE Facility :[facility] Start: 07-06-2021 End: 07-06-2021 ambulatory SELF SELF Facility:[facility] Start: 07-06-2021 End: 07-06-2021 Subsequent hospital visit by physician Azalea Leigh MD Work Phone: [facility] Comment on above: PAF (paroxysmal atri al fibrillation) Arrived Start: 06-22-2021 End: 06-22-2021 Discharged Recurring [facility] Start: 06-02-2021 ambulatory BHARATH MADERA Facility:[facility] Start: 05-24-2021 End: 05-24-2021 Discharged Recurring [facility] Start: 04-27-2021 End: 05-06-2021 Discharged Recurring [facility] Start: 03-24-2021 End: 03-24-2021 Discharged Recurring [facility] Start: 02-22-2021 End: 03-08-2021 Discharged Recurring [facility] Start: 02-15-2021 ambulatory HELDER BUSBY Facility:[facility] Start: 01-22-2021 End: 01-01-2022 Discharged Recurring [facility] Start: 11-23-2020 End: 11-23-2020 Subsequent hospital visit by physician Sarah Charles PA-C Work Phone: [facility] Comment on above: Nonrheumatic aortic (valve) insufficiency; Nonrheumatic aortic valve insufficiency Start: 08-18-2020 Chart Update Minor Bailey Amos rizzotamir Work Phone: [facility] Gastroenterology-Joan n Work Phone: Start: 05-14-2020 End: 05-15-2020 ambulatory NONE NONE Facility:[facility] Start: 04-23-2020 End: 04-24-[address] ELIZABETH STEVENS MD Facility:[facility] Start: 10-25-2019 End: 10-25-2019 Patient encounter procedure Marina Arita MD Work Phone: [facility] Work Phone: Start: 04-16-2019 End: 04-16-2019 Subsequent hospital visit by physician Markus Barclay Work Phone: [facility] Comment on above: Palpitations Start: 10-09-2018 End: 10-09-2018 Subsequent hospital visit by physician Libby Spivey Work Phone: [facility] General Surgery Comment on above: ESRD [...] visit by physician Libby Spivey Work Phone: [facility] Pre-Admit Testing Comment on above: Arrived Start: 01-12-2017 Ambulatory LIBBY MENENDEZ Facility: [facility] Procedures Date Procedure Procedure Detail Performing [...] 07-06-2021 CBC AND ELECTRONIC DIFF Trisha A [employer] EMPLOYEE SERVICE OFFICER-MAINTENANCE TRAINER Work Phone: Start: 07-06-2021 Complete blood count with white cell differential, automated Trisha A [employer] EMPLOYEE SERVICE OFFICER-MAINTENANCE TRAINER Work Phone: Start: 07-06-2021 Creatinine blood Trisha A [employer] EMPLOYEE SERVICE OFFICER-MAINTENANCE TRAINER Work Phone: Start: 11-23-2020 Echo tthrc r-t [...] w/ wom-mode compl spec&colr d Fouzia R [place] Work Phone: Start: 07-26-2018 Microscopic examinat ion of blood, culture Comment on above: Order Comment: Speci men Source Comment:Blood Performed By: #### H EMDF, LIPA4, CMP3 #### [employer] [facility] [address] [place] [address] Start: 07-25-2018 Microscopic examinat ion of blood, culture Comment on above: Order Comment: Speci men Source Comment:Blood Performed By: #### H EMDF, LIPA4, CMP3 #### [employer] [facility] [address] [place] [address] Start: 04-13-2015 History of renal transplant Hi [...] 08-13-2030 Screening for malignant neoplasm of colon [facility] Start: 05-03-2028 Lipid panel Lipid Panel [facility] Start: 08-24-2025 Colon cancer screen colonoscopy Colon cancer screen colonoscopy [place], [place] Start: 05-10-2025 Depression Screening Depression Screening [facility] Start: 11-26-2024 Depression Screening Depression Screening [facility] Start: 11-12-2024 End: 11-12-2024 Patient encounter procedure 11/12/2024 8:20 AM EDT Office Visit [facility] [address] [place] [address] Amosenma Minor BaileyDO [address] [place] [address] [facility] Start: 11-11-2024 End: 11-11-2024 Patient encounter procedure 11/11/2024 2:00 PM EDT Appointment [facility] Non-Invasive Cardiology [address] [facility] [place] [address] Ace Messina MD [address] [place], [place] [id number] [facility] Non-Invasive Cardiology Start: 10-16-2024 End: 06-26-2026 Heart Transthoracic Transthoracic echocardiogram (TTE) complete with contrast, bubble, strain, and 3D PRN CV Echocardiography Routine Nonrheumatic aortic valve insufficiency Expected: 10/16/2024 (Approximate), Expires: 06/26/2026 [facility] Comment on above: Expected: 10/16/2024 (Approximate), Expi res: 06/26/2026 Start: 10-07-2024 Influenza vaccination Influenza Vaccine (#1) [facility] Start: 08-11-2024 Fasting lipid profile LIPID SCREENING [facility] Start: 08-11-2024 Lipid panel Lipid Panel [facility] Start: 06-26-2024 End: 06-26-2024 Patient encounter procedure 06/26/2024 2:20 PM EDT [facility] [address] [place] [address] Ace Messina MD [address] [place] [address] [address] [place] [address] [facility] Start: 06-10-2024 End: 06-10-2024 Clinical Support 06/10/2024 2:00 PM EDT Clinical Support [facility] [place] [address] [place] [address] [facility] Start: 06-07-2024 End: 06-07-2024 Clinical Support 06/07/2024 9:00 AM EDT Clinical Support [facility] [address] [place] [address] [facility] Start: 05-13-2024 End: 05-13-2025 PSA Total (Screening) PSA Total (Screening) Lab Routine Prostate cancer screening Expected: 05/13/2024 (Approximate), Expires: 05/13/2025 [facility] Work Phone: Comment on above: Expected: 05/13/2024 (Approximate), Expi res: 05/13/2025 Start: 05-13-2024 End: 05-13-2024 Patient encounter procedure 05/13/2024 9:00 AM EDT Office Visit [facility] [place] [address] [place] [address] Minor Beasley DO [address] [place] [address] [facility] Start: 04-16-2024 End: 04-16-2024 Patient encounter procedure 04/16/2024 2:00 PM EDT Appointment [facility] Non-Invasive Cardiology [address] [place] [address] Ace Messina MD [address] [place] [address] [facility] Non-Invasive Cardiology Start: 04-16-2024 End: 12-24-2025 Heart Transthoracic Transthoracic echocardiogram (TTE) complete with contrast, bubble, strain, and 3D PRN CV Echocardiography Routine PAF (paroxysmal atrial fibrillation) (HCC) Dilatation of aortic sinus of Valsalva Aortic valve insufficiency, etiology of cardiac valve disease unspecified Expected: 04/16/2024 (Approximate), Expires: 12/24/2025 [facility] Work Phone: Comment on above: Expected: 04/16/2024 (Approximate), Expi res: 12/24/2025 Start: 04-03-2024 Vitamin D, 25-hydroxy measurement [facility] Start: 12-25-2023 End: 12-25-2023 Patient encounter procedure 12/25/2023 1:20 PM EST Office Visit [facility] [address] [place] [address] Ace Messina MD [address] [place], [place] [id number] [facility] Start: 11-29-2023 Pneumococcal 0-64 years Vaccine (2 of 4 - PPSV23) Pneumococcal 0-64 years Vaccine (2 of 4 - PPSV23) [facility] Work Phone: Start: 10-08-2023 COVID-19 Vaccine ( season) COVID-19 Vaccine ( season) [facility] Start: 10-08-2023 Influenza vaccination Influenza Vaccine (Season Ended) [facility] Start: 10-05-2023 End: 10-05-2023 Patient encounter procedure 10/05/2023 11:30 AM EDT Office Visit [facility] [address] [place] [address] Minor Beasley DO [address] [place] [address] [facility] Start: 04-10-2023 End: 04-10-2023 Patient encounter procedure 04/10/2023 10:00 AM EST Appointment [facility] Non-Invasive Cardiology [address] [place] [address] Ace Messina MD [address] [place] [address] [facility] Non-Invasive Cardiology Start: 04-06-2023 End: 04-05-2024 Lipid 1996 panel - Serum or Plasma Lipid panel Lab Routine Hyperlipidemia, unspecified hyperlipidemia type Expected: 04/06/2023 (Approximate), Expires: 04/05/2024 [facility] Comment on above: Expected: 04/06/2023 (Approximate), Expi res: 04/05/2024 Start: 04-06-2023 End: 04-05-2024 PSA Total (Screening) PSA Total (Screening) Lab Routine Prostate cancer screening Expected: 04/06/2023 (Approximate), Expires: 04/05/2024 [facility] Work Phone: Comment on above: Expected: 04/06/2023 (Approximate), Expi res: 04/05/2024 Start: 04-05-2023 End: 04-05-2023 Patient encounter procedure [facility] Start: 12-15-2022 End: 12-15-2022 Patient encounter procedure [facility] Start: 11-04-2022 End: 11-04-2022 Patient encounter procedure [facility] Start: 10-07-2022 COVID-19 Vaccine ( season) COVID-19 Vaccine ( season) [facility] Start: 10-07-2022 Influenza vaccination [facility] Start: 08-16-2022 End: 08-16-2022 Patient encounter procedure 08/16/2022 Office Visit Transplant Surgery Louie Plasencia MBBS [address] [place] [id number] [facility] Start: 01-03-2022 Zoster Vaccines (2 of 2) Zoster Vaccines (2 of 2) [facility] Start: 12-08-2021 End: 12-08-2021 Patient encounter procedure 12/08/2021 Office Visit Electrophysiology Azalea Leigh MD [address] [place] [address] Cardiovascular Testing Outpatient Care [facility] Start: 11-16-2021 End: 11-16-2021 Patient encounter procedure 11/16/2021 Office Visit Electrophysiology Renee Calle, EMPLOYEE SERVICE OFFICER-MAINTENANCE TRAINER [address] [place] [address] [facility] [place] Start: 10-07-2021 Influenza vaccination [facility] Start: 08-27-2021 Diabetes mellitus screening Diabetes Screening [facility] Start: 08-17-2021 End: 07-06-2022 Cardiac telemetry [employer] TELEMET[employer] ECG Routine PAF (paroxysmal atrial fibrillation) Expected: 08/17/2021, Expires: 07/06/2022 [facility] Comment on above: Expected: 08/17/2021, Expires: Start: 08-16-2021 End: 08-16-2021 Patient encounter procedure 08/16/2021 Office Visit Transplant Surgery Louie Plasencia MBBS [address] [place] [id number] [facility] Start: 08-13-2021 End: 08-13-2022 ALLOSCREEN RECIPIENT (POST TX PRA) ALLOSCREEN RECIPIENT (POST TX PRA) Lab Routine Kidney replaced by transplant Abnormal blood chemistry Aftercare following organ transplant Immunosuppressed status High risk medication use Expected: 08/13/2021, Expires: 08/13/2022 [facility] Comment on above: Expected: 08/13/2021, Expires: 3 Start: 08-13-2021 End: 08-13-2022 BK VIRUS DNA QN, PCR, PLASMA BK VIRUS DNA QN, PCR, PLASMA Lab Routine Kidney replaced by transplant Abnormal blood chemistry Aftercare following organ transplant Immunosuppressed status High risk medication use Expected: 08/13/2021, Expires: 08/13/2022 [facility] Comment on above: Expected: 08/13/2021, Expires: 3 Start: 08-13-2021 End: 08-13-2022 URINE PROTEIN/CREA RATIO, RANDOM URINE PROTEIN/CREA RATIO, RANDOM Fluids Routine Kidney replaced by transplant Abnormal blood chemistry Aftercare following organ transplant Immunosuppressed status High risk medication use Expected: 08/13/2021, Expires: 08/13/2022 [facility] Comment on above: Expected: 08/13/2021, Expires: 3 Start: 07-07-2021 End: 07-07-2021 Telemedicine consultation with patient 07/07/2021 Telemedicine Electrophysiology Renee Calle, EMPLOYEE SERVICE OFFICER-MAINTENANCE TRAINER [address] [place] [id number] Process Camera [facility] Start: 03-18-2021 COVID-19 Vaccine (4 - Booster) COVID-19 Vaccine (4 - Booster) [facility] Start: 03-18-2021 COVID-19 Vaccine (5 - Booster for Pfizer series) COVID-19 Vaccine (5 - Booster for Pfizer series) [facility] [employer] Start: 10-07-2020 Influenza vaccination Flu vaccine (#1) [employer] Work Phone: Start: 06-11-2020 COVID-19 Vaccine (3 - Pfizer risk 3-dose series) COVID-19 Vaccine (3 - Pfizer risk 3-dose series) [facility] Work Phone: Start: 06-11-2020 COVID-19 VACCINE (3 - Pfizer risk series) COVID-19 VACCINE (3 - Pfizer risk series) [facility] Start: 2020 RSV Immunization aged 60 or older (1 - 1-dose 60+ series) RSV Immunization aged 60 or older (1 - 1-dose 60+ series) [facility] Start: 2020 RSV Immunization for Adults (1 - Risk 60-74 years 1-dose series) RSV Immunization for Adults (1 - Risk 60-74 years 1-dose series) [facility] Start: 02-22-2020 Lipid panel Lipid screen [facility] Work Phone: Start: 02-22-2020 Lipid screen Lipid screen [facility] [place] Start: 10-28-2019 End: 10-28-2019 Appointment Appointment [facility] Work Phone: Start: 10-25-2019 End: 10-25-2019 Appointment Appointment [facility] Work Phone: Start: 10-25-2019 End: 10-25-2019 TSH Qn MRI right shoulder without contrast [facility] Work Phone: Start: 10-10-2019 Potassium monitoring Potassium monitoring [facility] Work Phone: Start: 07-23-2019 Creatinine measurement Creatinine monitoring [facility] Work Phone: Start: 07-23-2019 Creatinine monitoring Creatinine monitoring [facility] , [place] Start: 07-23-2019 Potassium monitoring Potassium monitoring [facility] [place] Start: 10-24-2018 End: 10-24-2018 Office Visit 10/24/2018 Office Visit Vascular Surgery Libby Spivey MD [address] [place] [address] [phone] [facility] Start: 10-10-2018 End: 10-10-2018 Office Visit 10/10/2018 Office Visit Vascular Surgery Libby Spivey MD [address] [place] [address] [phone] [facility] Start: 10-07-2018 Influenza vaccination Flu vaccine (#1) [place], [place] Start: 09-27-2018 End: 09-27-2018 Appointment 09/27/2018 Appointment General Surgery Libby Spivey MD [address] [place] [address] [phone] [facility] General Surgery Start: 09-18-2018 Annual Wellness Visit (AWV) Annual Wellness Visit (AWV) [place], [place] Start: 2010 Prostate specific antigen measurement PROSTATE CANCER SCREENING DISCUSSION [facility] Start: 2010 Shingles Vaccine (1 of 2) Shingles Vaccine (1 of 2) [place] Start: 2010 Zoster vaccine hzv live for subcutaneous use ZOSTER (SHINGLES) VACCINE (1 of 2) [facility] Start: 2005 Colonoscopy COLORECTAL CANCER SCREENING DISCUSSION [facility] Start: 1980 Hepatitis B Vaccines (1 of 3 - Risk Dialysis 4-dose series) Hepatitis B Vaccines (1 of 3 - Risk Dialysis 4-dose series) [facility] Start: 04-23-1979 DTaP/Tdap/Td vaccine (1 - Tdap) DTaP/Tdap/Td vaccine (1 - Tdap) [place] Start: 04-23-1979 DTaP/Tdap/Td Vaccines (1 - Tdap) DTaP/Tdap/Td Vaccines (1 - Tdap) [facility] Start: 04-23-1979 Hepatitis B Vaccine (1 of 3 - Risk Recombivax 3-dose series) Hepatitis B Vaccine (1 of 3 - Risk Recombivax 3-dose series) [place] Start: 04-23-1979 Third diphtheria, tetanus and acellular pertussis (DTaP) vaccination TDAP (ADULT) [facility] Start: 1978 Diabetes mellitus screening Diabetes Screening [facility] Start: 1978 Hepatitis C screening Hepatitis C Screening [facility] Start: 1978 Tetanus vaccination TETANUS [facility] Start: 04-23-1975 HIV screen HIV screen [place], [place] Start: 04-23-1975 HIV screening HIV screen [facility] Work Phone: Start: 1972 Depression Screening Depression Screening [facility] Start: 1966 Pneumococcal 0-64 years Vaccine (1 of 3 - PCV13) Pneumococcal 0-64 years Vaccine (1 of 3 - PCV13) [place] Start: 1966 PNEUMOCOCCAL VACCINE SERIES (1 - PCV) PNEUMOCOCCAL VACCINE SERIES (1 - PCV) [facility] Start: 1966 Pneumococcal Vaccine: Pediatrics (0 to 5 Years) and At-Risk Patients (6 to 64 Years) (1 - PCV) Pneumococcal Vaccine: Pediatrics (0 to 5 Years) and At-Risk Patients (6 to 64 Years) (1 - PCV) [facility] Start: 1961 MMR Vaccines (1 of 1 - Standard series) MMR Vaccines (1 of 1 - Standard series) [facility] Start: 1960 Hepatitis B Vaccines (1 of 3 - 3-dose series) Hepatitis B Vaccines (1 of 3 - 3-dose series) [facility] Start: 1960 HIV screening HIV Screening [facility] Start: 1960 Lipid panel Lipid Panel [facility] Start: 1960 Screening for malignant neoplasm of colon [facility] End: 10-09-2018 Blood glucose - POCT Blood glucose - POCT Point of Care Testing Routine One Time for 1 Occurrences starting 10/09/2018 until 10/09/2018 [facility] [place] Comment on above: One Time for 1 Occurrences starting 04/2018 until 10/09/2018 End: 10-09-2018 CBC CBC Lab STAT One Time for 1 Occurrences starting 10/09/2018 until 10/09/2018 [facility] [place] Comment on above: One Time for 1 Occurrences starting 04/2018 until 10/09/2018 End: 10-09-2018 Creatinine [Mass/Vol] Creatinine, serum Lab Routine One Time for 1 Occurrences starting 10/09/2018 until 10/09/2018 [facility] [place] Comment on above: One Time for 1 Occurrences starting 04/2018 until 10/09/2018 ECG 12 lead - CLINIC PERFORMED ECG 12 lead - CLINIC PERFORMED CV ECG Routine Palpitations Ordered: 06/26/2024 [facility] [employer] [facility] Work Phone: Comment on above: Ordered: 06/26/2024 Electrophysiology study EP PROCE DURE - EPS/ABLATION/DEVICE Electrophysiology Routine PAF (paroxysmal atrial fibrillation) 07/06/2021 4:31 PM EDT [facility] Incentive spirometry Incentive s pirometry Respiratory Care Routine Q1H PRN until discontinued starting 10/09/2018 [facility] [place] Comment on above: Q1H PRN until discontinued starting 04/2018 Initiate Oxygen Ther apy Protocol Initiate Oxygen Therapy Protocol Respiratory Care Routine Daily until discontinued starting 10/09/2018 [facility] Comment on above: Daily until discontinued starting 2018 Phase I & II - meter ed glucose Phase I & II - metered glucose Point of Care Testing Routine As Needed until discontinued starting 10/09/2018 [facility] [place] Comment on above: As Needed until discontinued starting End: 10-09-2018 , urine , urine Lab Routine One Time for 1 Occurrences starting 10/09/2018 until 10/09/2018 [facility] Comment on above: One Time for 1 Occurrences starting 04/2018 until 10/09/2018 End: 10-09-2018 Protime-INR Protime-INR Lab Routine One Time for 1 Occurrences starting 10/09/2018 until 10/09/2018 [facility] [place] Comment on above: One Time for 1 Occurrences starting 04/2018 until 10/09/2018 Tacrolimus [Mass/vol ume] in [facility] Tacrolimus [Mass/vol ume] in [facility] Tacrolimus [Mass/vol ume] in [facility] Immunizations Immunization Date Immunization Notes Care Provider [facility] 11-27-2023 Seasonal trivalent influenza vaccine, adjuvanted, preservative free Minor Beasley DO Work Phone: [facility] 11-27-2023 influenza virus vaccine, unspecified formulation Ace Messina MD Work Phone: [facility] 02-10-2023 influenza, injectabl e, quadrivalent, preservative free Minor Beasley DO Work Phone: [facility] [employer] 09-26-2022 Pneumococcal Conjuga te PCV20, Pf (Prevnar 20) Minor Beasley DO Work Phone: [facility] [employer] 01-26-2022 zoster vaccine recombinant Minor Beasley DO Work Phone: [facility] [employer] 11-08-2021 zoster vaccine recombinant Minor Beasley DO Work Phone: [facility] [employer] 05-24-2020 Covid (Pfizer) [facility] 05-14-2020 Pfizer-BioNTech COVID-19 Vacc 30 MCG/0.3ML Intramuscular Suspension Minor Beasley Work Phone: [facility] Comment on above: Series: 04-23-2020 Pfizer-BioNTech COVID-19 Vacc 30 MCG/0.3ML Intramuscular Suspension Minor Beasley Work Phone: [facility] Comment on above: Series: 10-31-2018 influenza virus vaccine, unspecified formulation Azalea Leigh MD Work Phone: [facility] Payers Date Payer Category Payer Self-pay [id number] 2022 Commercial Managed Care - [id number] [id number] 2022 Unknown [id number] 2021 Medicare [id number] 2018 Unknown BCBS BCBS OUT OF STATE xxxxxxxxxxxxxxx 2018-Present [address] [place] [address] xxxxxxxxxxxxxxx [id number] 2017 Medicare MEDICARE MEDICAR E PART A AND B xxxxxxxxxxx 2017-Present [phone] [place] [address] xxxxxxxxxxx [id number] 2017 Medicare MEDICARE MEDICAR E PART A AND B xxxxxxxxxx 2017-Present [phone] [address] [place] [address] xxxxxxxxxx [id number] 2017 Medicare [id number] 2017 Unknown 1960 Unknown [id number] 2.16.840.1.900460.3.579.2. 419 1960 Unknown [id number] 2.16.840.1.088561.3.579.2. 419 1960 Unknown [id number] 2.16.840.1.785151.3.579.2. 594 1960 Unknown [id number] 2.16.840.1.384553.3.579.2. 594 1960 Unknown [id number] 2.16.840.1.344741.3.579.2. 594 1960 Unknown [id number] 2.16.840.1.313527.3.579.2. 594 1960 Unknown [id number] 2.16.840.1.366749.3.579.2. 594 1960 Unknown [id number] 2.16.840.1.384698.3.579.2. 594 1960 Unknown [id number] 2.16.840.1.239433.3.579.2. 594 1959 Medicare [id number] 1959 Unknown [id number] Unknown [id number] Unknown [id number] 2.16.840.1.022241.3.579.2. 462 Unknown [id number]. 462 Social History Date Type Detail Facility Start: 10-09-2018 End: 12-02-2021 Tobacco smoking status NHIS Never smoker [facility] Start: 10-09-2018 End: 05-10-2024 Alcohol intake No [place], [place] Start: 1960 Sex Assigned At Not on file [place] Start: 04-09-2019 End: 08-23-2020 Alcohol intake Current non-drinker of alcohol (finding) [place], [place] Start: 11-25-2020 End: 11-25-2020 Assertion Unknown if ever smoked [facility] Work Phone: Start: 08-23-2020 End: 05-10-2024 Patient has living will Patient has living will [facility] Work Phone: Start: 08-23-2020 End: 12-02-2021 Tobacco use and exposure Never used [facility] Work Phone: Start: 08-01-2019 End: 10-28-2019 History SDOH Alcohol Frequency 1 [facility] Work Phone: Start: 10-28-2019 History SDOH Social Connections Phone 5 [facility] Work Phone: Start: 10-28-2019 History SDOH Social Connections Get Together 2 [facility] Work Phone: Start: 10-28-2019 History SDOH Social Connections Protestant 3 [facility] Work Phone: Start: 10-28-2019 History SDOH Physica l Activity DPW 0 [facility] Work Phone: Start: 1960 Sex Assigned At Male [facility] Start: 06-02-2021 End: 06-26-2024 Alcohol intake Lifetime non-drinker (finding) [facility] Start: 12-15-2021 End: 09-26-2022 Alcohol intake Ex-drinker (finding) [facility] Start: 03-07-2022 End: 09-26-2022 Exposure to SARS-CoV-2 (event) Not sure [facility] Start: 09-06-2021 End: 04-18-2024 Sex Male (finding) [facility] How often do you nee d to have someone help you when you read instructions, pamphlets, or other written material from your doctor or pharmacy [SILS] Never [facility] Has the [employer], [employer], or water [employer] threatened to shut off services in your home in past 12Mo No [facility] Do you belong to any clubs or organizations such as baptism groups, unions, fraternal or athletic groups, or school groups? Yes [facility] Are you now , , , , never or living with a partner? [facility] How often to you hav e a drink containing alcohol? Never [facility] Do you feel stress - tense, restless, nervous, or anxious, or unable to sleep at night because your mind is troubled all the time - these days [OSQ] Only a little [facility] (I/We) worried wheth er (my/our) food would run out before (I/we) got money to buy more. Never true [facility] Medical Equipment Procedure Code Equipment Code Equipment Origin al Text Equipment Identifier Dates Device Closure Proglide 6fr - [id number] FDA Start: 07-06-2021 Stent Ureteral D bl J 6 X 12 - [id number] Start: 08-01-2019 Clinical Notes 04-02-2020 to [...] prior to picking up the medication: n/a [facility] 08-06-2024 Miscellaneous Notes Medication name: [...] the medication: n/a documented in this encounter [facility] 08-06-2024 Telephone encounter Note Patient called, and requested refill of Xarelto to be sent to [facility]. [facility] 08-06-2024 Miscellaneous Notes Patient called, and requested refill of Xarelto to be sent to [facility]. documented in this encounter [facility] 07-12-2024 Telephone encounter Note Recent Visits Date Type Provider Dept 05/13/24 Office Visit Minor Lynn DO [facility] 11/27/23 Office Visit Minor Bailey DO [facility] Showing recent visits within past 365 days [...] recent labs completed in chart? N/A None [facility] 07-12-2024 Miscellaneous Notes Recent Visits Date Type Provider Dept 05/13/24 Office Visit Minor Bailey DO [facility] 11/27/23 Office Visit Minor Bailey DO [facility] Showing recent visits within past 365 days [...] chart? N/A None documented in this encounter [facility] 06-26-2024 History of Present illness Narrative [facility] Cardiology Note Visit type: New Chief Complaint: No chief complaint on file. History of Present Illness: Edmond Lama is a 64 y.o. 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 He has a history of aortic [...] HISTORY 07/22/2018 Removal peritoneal dialysis catheter at [facility] TONSILLECTOMY 1965 TRANSPLANT, KIDNEY, OPEN 1996 [facility] TRANSPLANT, KIDNEY, OPEN 07/2019 [facility] UPPER [...] had a PVI in June 2021 at [facility]. He is asymptomatic. -Continue metoprolol 50 mg [...] in 6 months documented in this encounter [facility] 06-07-2024 History of Present illness [...] Provider Department Center 06/07/2024 9:00 AM SCHEDULE, [facility] 06/26/2024 2:20 PM Ace Messina MD [facility] None 11/12/2024 8:20 AM Minor Beasley DO [facility] Cc'd provider blood pressure readings? Yes Blood pressure stable, no med changes necessary documented in this encounter [facility] 06-07-2024 History of Present illness [...] Provider Department Center 06/07/2024 9:00 AM SCHEDULE, [facility] 06/26/2024 2:20 PM Ace Messina MD [facility] None 11/12/2024 8:20 AM Minor Beasley DO [facility] Cc'd provider blood pressure readings? Yes Blood pressure stable, no med changes necessary Sent Track[employer] message documented in this encounter [facility] 05-27-2024 Telephone encounter Note Patient rescheduled for 06/07/24 at 9:00AM [facility] 05-27-2024 Miscellaneous Notes Patient rescheduled for 06/07/24 at 9:00AM Name of Caller: edmond Contact Reason for Appointment: Pt requesting to be rescheduled for the following week for his nurse visit on 06/10. Please advise. Office Name: shereenkirk corneliusmandi coronado Medication Refills need, if any: / Medication Name: / documented in this encounter [facility] 05-27-2024 Telephone encounter Note Name of Caller: edmond Contact Reason for Appointment: Pt requesting to be rescheduled for the following week for his nurse visit on 06/10. Please advise. Office Name: nicholas salazar mc Medication Refills need, if any: / Medication Name: / [facility] 05-13-2024 History of Present illness Narrative Images from the original note were not included. [facility] - [address] [facility] [id number] Visit type: Established Patient Reason [...] disease without esophagitis PAF (paroxysmal atrial fibrillation) ([facility]LY [facility]) Hypertension History of renal transplant Dilatation of [...] HISTORY 07/22/2018 Removal peritoneal dialysis catheter at [facility] TONSILLECTOMY 1965 TRANSPLANT, KIDNEY, OPEN 1996 [facility] TRANSPLANT, KIDNEY, OPEN 07/2019 [facility] UPPER [...] edema is evident. documented in this encounter [facility] 05-13-2024 Instructions Minor Beasley DO - 05/13/2024 9:00 AM EDT Rech BP 4 wks documented in this encounter [facility] 05-09-2024 Telephone encounter Note I called and spoke to Edmond checking to see how is doing-he tells me he is feeling great-no chest pressure. We will have him keep f/up with Dr Messina in June, if any symptoms, please call and we can plan to arrange testing sooner. He was thankful for the call. [facility] 05-09-2024 Miscellaneous Notes I called and spoke to Edmond checking [...] he was actually on a flight to [place] yesterday; he will be there through the [...] I called and spoke to Dr Grayson's secretary of state; [place] is busy right now, but they will have her call back to further discuss patietn's situation/what types of dye can be used for cardiac testing. ----- Message from MICHAEL Perez CNP sent at 04/26/2024 8:24 AM EDT ----- Please call artificial cherry maker and see if would be ok to do these studies with dye. ----- Message ----- From: Ace Messina MD Sent: 04/25/2024 9:26 AM EDT To: MICHAEL Delarosa CNP I am thinking in terms of CAD related heart burn? Coronary CTA would be an option.. Would have to reach out to his artificial cherry maker if its ok to use contrast for [...] order an MRI? documented in this encounter [facility] 05-08-2024 Telephone encounter Note I called and LMOM asking patient to give me a call back to discuss if any further symptoms. If so, we will order testing. If not, we will have him keep f/up with Dr Messina in June. Left number for PW office. [facility] 05-08-2024 Miscellaneous Notes I called and LMOM asking patient to give me a call back to discuss if any further symptoms. If so, we will order testing. If not, we will have him keep f/up with Dr Messina in June. Left number for PW office. I called and spoke to Edmond; he was actually on a flight to [place] yesterday; he will be there through the [...] I called and spoke to Dr Grayson's secretary of state; [place] is busy right now, but they will have her call back to further discuss patietn's situation/what types of dye can be used for cardiac testing. ----- Message from MICHAEL Perez CNP sent at 04/26/2024 8:24 AM EDT ----- Please call artificial cherry maker and see if would be ok to do these studies with dye. ----- Message ----- From: Ace Messina MD Sent: 04/25/2024 9:26 AM EDT To: MICHAEL Delarosa CNP I am thinking in terms of CAD related heart burn? Coronary CTA would be an option.. Would have to reach out to his artificial cherry maker if its ok to use contrast for [...] order an MRI? documented in this encounter [facility] 05-01-2024 Telephone encounter Note I called and spoke to Edmond; he was actually on a flight to [place] yesterday; he will be there through the [...] update. He was thankful for the call. [facility] 05-01-2024 Miscellaneous Notes I called and spoke to Edmond; he was actually on a flight to [place] yesterday; he will be there through the [...] I called and spoke to Dr Grayson's secretary of state; MORGAN is busy right now, but they will have her call back to further discuss patietn's situation/what types of dye can be used for cardiac testing. ----- Message from MICHAEL Perez CNP sent at 04/26/2024 8:24 AM EDT ----- Please call artificial cherry maker and see if would be ok to do these studies with dye. ----- Message ----- From: Ace Messina MD Sent: 04/25/2024 9:26 AM EDT To: MICHAEL Delarosa CNP I am thinking in terms of CAD related heart burn? Coronary CTA would be an option.. Would have to reach out to his artificial cherry maker if its ok to use contrast for [...] order an MRI? documented in this encounter [facility] 04-30-2024 Telephone encounter Note LM requesting a call back to discuss pt's symptoms and need for further testing. [facility] 04-26-[address] Armstrong secure chatted today and reports ok for MRI and if needing to use dye for CT recommends giving 1 liter of IVF prior to scan. [facility] Work Phone: 04-26-2024 Telephone encounter Note JUAN [...] callback number/best way to reach me today. [facility] 04-26-2024 Telephone encounter Note I called and spoke to Dr Grayson's secretary of state; [place] is busy right now, but they will have her call back to further discuss amy's situation/what types of dye can be used for cardiac testing. [facility] 04-26-2024 Telephone encounter Note ----- Message from MICHAEL Perez CNP sent at 04/26/2024 8:24 AM EDT ----- Please call artificial cherry maker and see if would be ok to do these studies with dye. ----- Message ----- From: Ace Messina MD Sent: 04/25/2024 9:26 AM EDT To: MICHAEL Delarosa CNP I am thinking in terms of CAD related heart burn? Coronary CTA would be an option.. Would have to reach out to his artificial cherry maker if its ok to use contrast for [...] you want me to order an MRI? [facility] 04-24-2024 History of Present illness Narrative [facility] Card[facility] Note Visit type: Established Chief Complaint: Chief Complaint Patient presents with Chest Pain History of Present Illness: Edmond Lama is a 64 y.o. 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 He has a history of aortic [...] Valsalva 11/06/2018 Diverticulosis 2014 ESRD on dialysis ([facility]) 08/01/2017 LUE shunt- stopped 07/26 with second transplant Gastroesophageal reflux disease without esophagitis 10/28/201908/26 EGD per Smiley Liu H/O colonoscopy with polypectomy 08/2020 Dr. Elizabeth- due 5-10 yrs History of renal transplant 07/2019 and 2000 Hyperlipidemia 08/01/2017 statin intolerance- defers rx Hypertension 05/04/2015 PAF (paroxysmal atrial fibrillation) ([facility]) 10/28/2019 s/p ablation 06/27 at [facility] Polycystic [...] HISTORY 07/22/2018 Removal peritoneal dialysis catheter at [facility] TONSILLECTOMY 1965 TRANSPLANT, KIDNEY, OPEN 1996 [facility] TRANSPLANT, KIDNEY, OPEN 07/2019 [facility] UPPER [...] had a PVI in June 2021 at [facility]. Currently in NSR. He is asymptomatic if [...] patient X2 and sees Dr. Armstrong at [facility]. Recent labs show his creatinine to be 1.2. Will discuss potential of MRI to reassess if his symptoms don't resolve with dietary changes. He has no exertional component to his symptoms. Only finding on physical examination is 2/6 murmur. Will return to clinic as planned in June with Dr. Messina. documented in this encounter [facility] 02-14-2024 Telephone encounter Note CBC and BMP at nephrology 09/26/23: Hematocrit (Bld) [Volume fraction] 49.8 % Normal 40-54 [facility] Comment on above: Performed By: #### L100.0500, L506.1000, L3380.1000, L500.3600, L509.1000, L3900.4000, L501.0900 #### [facility] [address] [place], [address] Hemoglobin (Bld) [Mass/Vol] 15.9 g/dL Normal 13.0-16.5 [facility] Comment on above: Performed By: #### L100.0500, L506.1000, L3380.1000, L500.3600, L509.1000, L3900.4000, L501.0900 #### [facility] [address] [place], [address] MCH (RBC) [Entitic mass] 28.4 pg Normal 27.0-32.0 [facility] Comment on above: Performed By: #### L100.0500, L506.1000, L3380.1000, L500.3600, L509.1000, L3900.4000, L501.0900 #### [facility] [address] [place], [address] MCHC (RBC) [Mass/Vol] 31.9 g/dL Low 32-36 [facility] Comment on above: Performed By: #### L100.0500, L506.1000, L3380.1000, L500.3600, L509.1000, L3900.4000, L501.0900 #### [facility] [address] [place], [address] MCV (RBC) [Entitic vol] 88.9 fL Normal 80-94 [facility] Comment on above: Performed By: #### L100.0500, L506.1000, L3380.1000, L500.3600, L509.1000, L3900.4000, L501.0900 #### [facility] [address] [place], [address] Platelet mean volume (Bld) [Entitic vol] 10.2 fL Normal 6.2-12.0 [facility] Comment on above: Performed By: #### L100.0500, L506.1000, L3380.1000, L500.3600, L509.1000, L3900.4000, L501.0900 #### [facility] [address] [place], [address] Platelets (Bld) [#/Vol] 200 10*3/uL Normal 150-450 [facility] Comment on above: Performed By: #### L100.0500, L506.1000, L3380.1000, L500.3600, L509.1000, L3900.4000, L501.0900 #### [facility] [address] [place], [address] RBC (Bld) [#/Vol] 5.60 10*6/uL Normal 4.6-6.2 [facility] Comment on above: Performed By: #### L100.0500, L506.1000, L3380.1000, L500.3600, L509.1000, L3900.4000, L501.0900 #### [facility] [address] [place], [address] RDW SD 40.1 fl Normal 35.1-43.9 [facility] Comment on above: Performed By: #### L100.0500, L506.1000, L3380.1000, L500.3600, L509.1000, L3900.4000, L501.0900 #### [facility] [address] [place], [address] WBC (Bld) [#/Vol] 6.6 10*3/uL Normal 4.4-11.0 [facility] Comment on above: Performed By: #### L100.0500, L506.1000, L3380.1000, L500.3600, L509.1000, L3900.4000, L501.0900 #### [facility] [address] [place], [address] PTHIN on 09-26-2023 PTH 214.1 pg/mL High 18.4-80.1 [facility] Comment on above: Performed By: #### L100.0500, L506.1000, L3380.1000, L500.3600, L509.1000, L3900.4000, L501.0900 #### [facility] [address] [place], [address] Protein+Creatinine Ratio,Urine on 09-26-2023 PROT:CRE RATIO 161 mg/g CRE Normal 0-200 [facility] Comment on above: Performed By: #### L100.0500, L506.1000, L3380.1000, L500.3600, L509.1000, L3900.4000, L501.0900 #### [facility] [address] [place], [address] Protein (U) [Mass/Vol] 17.9 mg/dL High <11.9 [facility] Comment on above: Performed By: #### L100.0500, L506.1000, L3380.1000, L500.3600, L509.1000, L3900.4000, L501.0900 #### [facility] [address] [place], [address] UR CREAT 111.00 mg/dL Normal NO RANGE EST. [facility] Comment on above: Performed By: #### L100.0500, L506.1000, L3380.1000, L500.3600, L509.1000, L3900.4000, L501.0900 #### [facility] [address] [place], [address] Renal Profile on 09-26-2023 Albumin [Mass/Vol] 3.5 g/dL Normal 3.2-5.0 [facility] Comment on above: Performed By: ## L100.0500, L506.1000, L3380.1000, L500.3600, L509.1000, L3900.4000, L501.0900 #### [facility] [address] [place], [address] BUN/CRE 17.3 RATIO Normal 10-20 [facility] Comment on above: Performed By: ## L100.0500, L506.1000, L3380.1000, L500.3600, L509.1000, L3900.4000, L501.0900 ## [facility] [address] [place], [address] CA,Total 10.0 mg/dL Normal 8.5-10.1 [facility] Comment on above: Performed By: ## L100.0500, L506.1000, L3380.1000, L500.3600, L509.1000, L3900.4000, L501.0900 ## [facility] [address] [place], [address] Chloride [Moles/Vol] 110 mmol/L High 98-107 [facility] Comment on above: Performed By: ## L100.0500, L506.1000, L3380.1000, L500.3600, L509.1000, L3900.4000, L501.0900 ## [facility] [address] [place], [address] CO2 [Moles/Vol] 26.0 mmol/L Normal 21.0-32.0 [facility] Comment on above: Performed By: ## L100.0500, L506.1000, L3380.1000, L500.3600, L509.1000, L3900.4000, L501.0900 ## [facility] [address] [place], [address] Creatinine [Mass/Vol] 1.10 mg/dL Normal 0.70-1.30 [facility] Comment on above: Result Comment: The validity of the calculated GFR GFRAA in patients over 70 years has not been determined. Clinical correlation is essential. Performed By:## L100.0500, L506.1000, L3380.1000, L500.3600, L509.1000, L3900.4000, L501.0900 ## [facility] [address] [place], [address] EST GFR - AA 87 mL/min Normal >60 [facility] Comment on above: Result Comment: GFR Calc Performed By: ## L100.0500, L506.1000, L3380.1000, L500.3600, L509.1000, L3900.4000, L501.0900 ## [facility] [address] [place], [address] GFR/1.73 sq M.predicted among non-blacks MDRD (S/P/Bld) [Vol rate/Area] Normal >60 [facility] Comment on above: Result Comment: Non- GFR Calc Performed By: ## L100.0500, L506.1000, L3380.1000, L500.3600, L509.1000, L3900.4000, L501.0900 ## [facility] [address] [place], [address] Glucose [Mass/Vol] 110 mg/dL High 74-106 [facility] Comment on above: Result Comment: Fasting Glucose result from 100 to 125 mg/dL suggests IMPAIRED HOMEOSTASIS per A.D.A. criteria. Performed By: #### L100.0500, L506.1000, L3380.1000, L500.3600, L509.1000, L3900.4000, L501.0900 #### [facility] [address] [place], [address] Phosphate [Mass/Vol] 2.4 mg/dL Low 2.5-4.9 [facility] Comment on above: Performed By: ## L100.0500, L506.1000, L3380.1000, L500.3600, L509.1000, L3900.4000, L501.0900 ## [facility] [address] [place], [address] Potassium [Moles/Vol] 4.1 mmol/L Normal 3.5-5.1 [facility] Comment on above: Performed By: ## L100.0500, L506.1000, L3380.1000, L500.3600, L509.1000, L3900.4000, L501.0900 ## [facility] [address] [place], [address] Sodium [Moles/Vol] 139 mmol/L Normal 136-145 [facility] Comment on above: Performed By: ## L100.0500, L506.1000, L3380.1000, L500.3600, L509.1000, L3900.4000, L501.0900## [facility] [address] [place], [address] Urea nitrogen [Mass/Vol] 19 mg/dL [facility] 02-14-2024 Miscellaneous Notes CBC and BMP at nephrology 09/26/23: Hematocrit (Bld) [Volume fraction] 49.8 % Normal 40-54 [facility] Comment on above: Performed By: #### L100.0500, L506.1000, L3380.1000, L500.3600, L509.1000, L3900.4000, L501.0900 #### [facility] [address] [place], [address] Hemoglobin (Bld) [Mass/Vol] 15.9 g/dL Normal 13.0-16.5 [facility] Comment on above: Performed By: #### L100.0500, L506.1000, L3380.1000, L500.3600, L509.1000, L3900.4000, L501.0900 #### [facility] [address] [place], [address] MCH (RBC) [Entitic mass] 28.4 pg Normal 27.0-32.0 [facility] Comment on above: Performed By: #### L100.0500, L506.1000, L3380.1000, L500.3600, L509.1000, L3900.4000, L501.0900 #### [facility] [address] [place], [address] MCHC (RBC) [Mass/Vol] 31.9 g/dL Low 32-36 [facility] Comment on above: Performed By: #### L100.0500, L506.1000, L3380.1000, L500.3600, L509.1000, L3900.4000, L501.0900 #### [facility] [address] [place], [address] MCV (RBC) [Entitic vol] 88.9 fL Normal 80-94 [facility] Comment on above: Performed By: #### L100.0500, L506.1000, L3380.1000, L500.3600, L509.1000, L3900.4000, L501.0900 #### [facility] [address] [place], [address] Platelet mean volume (Bld) [Entitic vol] 10.2 fL Normal 6.2-12.0 [facility] Comment on above: Performed By: #### L100.0500, L506.1000, L3380.1000, L500.3600, L509.1000, L3900.4000, L501.0900 #### [facility] [address] [place], [address] Platelets (Bld) [#/Vol] 200 10*3/uL Normal 150-450 [facility] Comment on above: Performed By: #### L100.0500, L506.1000, L3380.1000, L500.3600, L509.1000, L3900.4000, L501.0900 #### [facility] [address] [place], [address] RBC (Bld) [#/Vol] 5.60 10*6/uL Normal 4.6-6.2 [facility] Comment on above: Performed By: #### L100.0500, L506.1000, L3380.1000, L500.3600, L509.1000, L3900.4000, L501.0900 #### [facility] [address] [place], [address] RDW SD 40.1 fl Normal 35.1-43.9 [facility] Comment on above: Performed By: #### L100.0500, L506.1000, L3380.1000, L500.3600, L509.1000, L3900.4000, L501.0900 #### [facility] [address] [place], [address] WBC (Bld) [#/Vol] 6.6 10*3/uL Normal 4.4-11.0 [facility] Comment on above: Performed By: #### L100.0500, L506.1000, L3380.1000, L500.3600, L509.1000, L3900.4000, L501.0900 #### [facility] [address] [place], [address] PTHIN on 09-26-2023 PTH 214.1 pg/mL High 18.4-80.1 [facility] Comment on above: Performed By: #### L100.0500, L506.1000, L3380.1000, L500.3600, L509.1000, L3900.4000, L501.0900 #### [facility] [address] [place], [address] Protein+Creatinine Ratio,Urine on 09-26-2023 PROT:CRE RATIO 161 mg/g CRE Normal 0-200 [facility] Comment on above: Performed By: #### L100.0500, L506.1000, L3380.1000, L500.3600, L509.1000, L3900.4000, L501.0900 #### [facility] [address] [place], [address] Protein (U) [Mass/Vol] 17.9 mg/dL High <11.9 [facility] Comment on above: Performed By: #### L100.0500, L506.1000, L3380.1000, L500.3600, L509.1000, L3900.4000, L501.0900 #### [facility] [address] [place], [address] UR CREAT 111.00 mg/dL Normal NO RANGE EST. [facility] Comment on above: Performed By: #### L100.0500, L506.1000, L3380.1000, L500.3600, L509.1000, L3900.4000, L501.0900 #### [facility] [address] [place], [address] Renal Profile on 09-26-2023 Albumin [Mass/Vol] 3.5 g/dL Normal 3.2-5.0 [facility] Comment on above: Performed By: ## L100.0500, L506.1000, L3380.1000, L500.3600, L509.1000, L3900.4000, L501.0900 #### [facility] [address] [place], [address] BUN/CRE 17.3 RATIO Normal 10-20 [facility] Comment on above: Performed By: ## L100.0500, L506.1000, L3380.1000, L500.3600, L509.1000, L3900.4000, L501.0900 ## [facility] [address] [place], [address] CA,Total 10.0 mg/dL Normal 8.5-10.1 [facility] Comment on above: Performed By: ## L100.0500, L506.1000, L3380.1000, L500.3600, L509.1000, L3900.4000, L501.0900 ## [facility] [address] [place], [address] Chloride [Moles/Vol] 110 mmol/L High 98-107 [facility] Comment on above: Performed By: ## L100.0500, L506.1000, L3380.1000, L500.3600, L509.1000, L3900.4000, L501.0900 ## [facility] [address] [place], [address] CO2 [Moles/Vol] 26.0 mmol/L Normal 21.0-32.0 [facility] Comment on above: Performed By: ## L100.0500, L506.1000, L3380.1000, L500.3600, L509.1000, L3900.4000, L501.0900 ## [facility] [address] [place], [address] Creatinine [Mass/Vol] 1.10 mg/dL Normal 0.70-1.30 [facility] Comment on above: Result Comment: The validity of the calculated GFR GFRAA in patients over 70 years has not been determined. Clinical correlation is essential. Performed By:## L100.0500, L506.1000, L3380.1000, L500.3600, L509.1000, L3900.4000, L501.0900 ## [facility] [address] [place], [address] EST GFR - AA 87 mL/min Normal >60 [facility] Comment on above: Result Comment: GFR Calc Performed By: ## L100.0500, L506.1000, L3380.1000, L500.3600, L509.1000, L3900.4000, L501.0900 ## [facility] [address] [place], [address] GFR/1.73 sq M.predicted among non-blacks MDRD (S/P/Bld) [Vol rate/Area] Normal >60 [facility] Comment on above: Result Comment: Non- GFR Calc Performed By: ## L100.0500, L506.1000, L3380.1000, L500.3600, L509.1000, L3900.4000, L501.0900 ## [facility] [address] [place], [address] Glucose [Mass/Vol] 110 mg/dL High 74-106 [facility] Comment on above: Result Comment: Fasting Glucose result from 100 to 125 mg/dL suggests IMPAIRED HOMEOSTASIS per A.D.A. criteria. Performed By: #### L100.0500, L506.1000, L3380.1000, L500.3600, L509.1000, L3900.4000, L501.0900 #### [facility] [address] [place], [address] Phosphate [Mass/Vol] 2.4 mg/dL Low 2.5-4.9 [facility] Comment on above: Performed By: ## L100.0500, L506.1000, L3380.1000, L500.3600, L509.1000, L3900.4000, L501.0900 ## [facility] [address] [place], [address] Potassium [Moles/Vol] 4.1 mmol/L Normal 3.5-5.1 [facility] Comment on above: Performed By: ## L100.0500, L506.1000, L3380.1000, L500.3600, L509.1000, L3900.4000, L501.0900 ## [facility] [address] [place], [address] Sodium [Moles/Vol] 139 mmol/L Normal 136-145 [facility] Comment on above: Performed By: ## L100.0500, L506.1000, L3380.1000, L500.3600, L509.1000, L3900.4000, L501.0900## [facility] [address] [place], [address] Urea nitrogen [Mass/Vol] 19 mg/dL documented in this encounter [facility] 02-01-2024 Telephone encounter Note Recent Visits Date Type Provider Dept 11/27/23 Office Visit Minor Beasley DO [facility] 04/06/23 Office Visit Minor Beasley DO [facility] Showing recent visits within past 365 days [...] recent labs completed in chart? N/A None [facility] 02-01-2024 Miscellaneous Notes Recent Visits Date Type Provider Dept 11/27/23 Office Visit Minor Beasley DO [facility] 04/06/23 Office Visit Minor Beasley DO [facility] Showing recent visits within past 365 days [...] chart? N/A None documented in this encounter [facility] 01-05-2024 Telephone encounter Note Recent Visits Date Type Provider Dept 11/27/23 Office Visit Minor Beasley DO [facility] 04/06/23 Office Visit Minor Beasley DO [facility] Showing recent visits within past 365 days [...] recent labs completed in chart? No None [facility] 01-05-2024 Miscellaneous Notes Recent Visits Date Type Provider Dept 11/27/23 Office Visit Minor Beasley DO [facility] 04/06/23 Office Visit Minor Beasley DO [facility] Showing recent visits within past 365 days [...] chart? No None documented in this encounter [facility] 12-25-2023 History of Present illness Narrative [facility] Cardiology Note Visit type: New Chief Complaint: Chief Complaint Patient presents with 1 Year Follow-up Atrial Fibrillation History of Present Illness: Edmond Lama is a 63 y.o. 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 He has a history of aortic [...] HISTORY 07/22/2018 Removal peritoneal dialysis catheter at [facility] TONSILLECTOMY 1965 TRANSPLANT, KIDNEY, OPEN 1996 [...] had a PVI in June 2021 at [facility]. On EKG today it seems like he [...] in 6 months documented in this encounter [facility] 12-06-2023 Telephone encounter Note RX loaded Next ov 05/13/24 [facility] 12-06-2023 Miscellaneous Notes RX loaded Next ov 05/13/24 Medication name: enalapril (Vasotec) 5 MG tablet [[id number]] Medication dosage: 5 mg (Miligrams Monthly quantity [...] pharmacy: Yes [facility] - [address] [address] Patient instructed to contact the pharmacy prior to picking up the medication: N/A documented in this encounter [facility] 12-06-2023 Telephone encounter Note Medication name: enalapril (Vasotec) 5 MG tablet [[id number]] Medication dosage: 5 mg (Miligrams Monthly quantity [...] medication tab): 06.07.23 Updated/Validated preferred pharmacy: Yes [facility] - [address] [address] Patient instructed to contact the pharmacy prior to picking up the medication: N/A [facility] 07-14-2023 Telephone encounter Note Rx has been sent. [facility] 07-14-2023 Miscellaneous Notes Rx has been sent. Edmond called asking the status of the script being send to the pharm. Please send to the pharm [facility] - [address] Medication name: metoprolol tartrate (Lopressor) 50 [...] the medication: Yes documented in this encounter [facility] 07-14-2023 Telephone encounter Note Edmond called asking the status of the script being send to the pharm. Please send to the pharm [facility] 06-28-2023 Telephone encounter Note [facility] [address] Medication name: metoprolol tartrate (Lopressor) 50 [...] prior to picking up the medication: Yes [facility] 06-07-2023 Telephone encounter Note Name of caller: Edmond Contact phone number: [phone] Relationship to Patient: patient Provider: delfin Practice: [facility] Chief Complaint/Reason for Call: Edmond called stating the [facility] only gave him a 30 day supply and is he wants it to go to [email or web address]. Best time of day caller can be reached: any Patient advised that office/PCP has 24-48 business hours to return their call: no [facility] 05-30-2023 Telephone encounter Note Recent Visits Date Type Provider Dept 04/06/23 Office Visit Minor Beasley DO [facility] 09/26/22 Office Visit Minor Beasley DO [facility] [place] Showing recent visits within past 365 days [...] found for: NA, K, EGFR, BUN, CREATININE [facility] 05-30-2023 Telephone encounter Note Ordering provider: Date [...] of last refill (see medication tab): 04/06/23 [facility] 05-08-2023 Miscellaneous Notes Name of caller: Edmond Contact phone number: [phone] Relationship to Patient: patient Provider: delfin Practice: [...] Dept 04/06/23 Office Visit Minor Beasley DO [facility] 09/26/22 Office Visit Minor Beasley DO [facility] Showing recent visits within past 365 [...] medication tab): 04/06/23 documented in this encounter [facility] 04-06-2023 History of Present illness Narrative Images from the original note were not included. [facility] [address] [facility] [address] Visit type: Established Patient Reason [...] disease without esophagitis PAF (paroxysmal atrial fibrillation) ([facility]) Hypertension History of renal transplant Dilatation of aortic sinus of Valsalva CRF (chronic renal failure) Aortic insufficiency Hyperlipidemia ESRD on dialysis ([facility]) Class 1 obesity ADPKD (autosomal dominant polycystic kidney disease) Statin intolerance Diverticulosis Gout H/O colonoscopy with polypectomy BMI 36.0-36.9,adult Social History Tobacco Use Smoking status: Never Smokeless tobacco: Never Substance Use Topics Alcohol use: Never Past Surgical History: Procedure Laterality Date CARDIAC ABLATION P ROCEDURE (HISTORICAL) 06/2021 at [facility] for At [facility] CHOLECYSTECTOMY [address] Reis-small polyp COLONOSCOPY W/ POLYPECTOMY 08/2020 Dr Reis-small polyp-due 5-10 yrs HX AV GRAFT CREATION Left 10/09/2018 [facility] OTHER SURGICAL HISTORY Abdominal sx for lymphocele drainage OTHER SURGICAL HISTORY 10/08/2015 Laparoscopic peritoneal dialysis catheter placement-Dr Arshad OTHER SURGICAL HISTORY 07/22/2018 Removal peritoneal dialysis catheter at [facility] TONSILLECTOMY 1965 TRANSPLANT, KIDNEY, OPEN 1996 [facility] TRANSPLANT, KIDNEY, OPEN 07/2019 [facility] UPPER [...] Normal sphincter tone documented in this encounter [facility] 02-02-2023 Telephone encounter Note Medication name: metoprolol tartrate (Lopressor) 50 MG tablet [[id number]] Order Details Dose, Route, Frequency: As Directed [...] prior to picking up the medication: Yes [facility] 02-02-2023 Miscellaneous Notes Medication name: metoprolol tartrate (Lopressor) 50 MG tablet [[id number]] Order Details Dose, Route, Frequency: As Directed [...] the medication: Yes documented in this encounter [facility] 12-22-2022 Telephone encounter Note Pt [...] prior to picking up the medication: Yes [facility] 12-22-2022 Miscellaneous Notes Pt states [...] the medication: Yes documented in this encounter [facility] 09-26-2022 History of Present illness Narrative Images from the original note were not included. [facility] [address] [address] Visit type: Established Patient Reason for Visit: Follow-up (Med check) Assessment / Plan: Edmond was seen today for follow-up. Diagnoses and all orders for this visit: Primary hypertension (Primary) Comments: Stable, continue metoprolol and enalapril History of renal transplant Gastroesophageal reflux disease without esophagitis Comments: Stable, continue Pepcid Statin intolerance PAF (paroxysmal atrial fibrillation) (CMS/HCC) ([facility]) Comments: Stable, continue Xarelto Other orders - [...] disease without esophagitis PAF (paroxysmal atrial fibrillation) ([facility]/HCC) ([facility]) Hypertension History of renal transplant Dilatation of aortic sinus of Valsalva CRF (chronic renal failure) Aortic insufficiency Hyperlipidemia ESRD on dialysis ([facility]) Class 1 obesity ADPKD (autosomal dominant polycystic [...] HISTORY 07/22/2018 Removal peritoneal dialysis catheter at [facility] TONSILLECTOMY 1965 TRANSPLANT, KIDNEY, OPEN 1996 [facility] TRANSPLANT, KIDNEY, OPEN 07/2019 [facility] UPPER [...] pulses are adequate documented in this encounter [facility] 06-10-2022 Telephone encounter Note Last appointment 11/03/21, Next appointment is 11/04/22 Last filled 12/17/21 #180 with 1 refill [facility] 06-10-2022 Miscellaneous Notes Last appointment 11/03/21, Next appointment is 11/04/22 Last filled 12/17/21 #180 with 1 refill documented in this encounter [facility] 08-16-2021 History of Present illness Narrative Images from the original note were not included. [facility]P [facility]Y [facility]IN[facility] Patient Name: Edmond Lama Rn Oncology Research: Anjali Jaquez Date of Kidney Transplant: 08/01/2019 Primary Disease: Retransplant/Graft Failure Kidney Transplant Medicare Specialist: Louie Plasencia Primary Care physician: Minor Beasley [...] levels: No results found for: CYCLOSPORIN, CYCLOSPORIN2, [id number], CYCLORAND No components found for: CYCLOSPORINE, 2HR [...] and tacrolimus [facility] [address] [place] [address] Change in lab frequency / new order today: Annual lab letter- in letters 07/13/2021 Labs needed in clinic today? yes enter orders & screen shot [employer], UPC, BK COORDINATOR NOTES: Images from the original note were not included. Today we were happy to see Edmond Lama at [facility] [place] [facility] for evaluation and management of immunosuppression and associated conditions in the setting of solid organ transplantation. As you may be aware Mr. Lama is a 61 y.o. year-old male. He received an organ transplant from a Donation after [facility] on 08/01/2019 (Kidney), 11/04/1996 (Kidney). The patient is currently 747 days out from transplantation. His [place] kidney disease was noted to be ADPKD [...] to contact me. documented in this encounter [facility] 08-16-2021 Instructions Yeni Tapia RN - 08/16/2021 2:28 PM EDT Return to clinic in one year documented in this encounter [facility] 07-07-2021 Instructions NORTH Aguiar - 07/07/2021 8:36 AM EDT Follow up as scheduled with NORTH Aguiar on 11/16/2021. If you have any questions, please contact nurse Stout - for urgent questions: call [phone] option 3 - non urgent questions: send [employer] message documented in this encounter [facility] 07-07-2021 History of Present illness Narrative ESTABLISHED PATIENT VIDEO VISIT - CARDIAC ELECTROPHYSIOLOGY Primary care provider: Minor Beasley DO Electrophysiology physician: Azalea Leigh MD Local cardiology provider: yAden Barclay MD Provider for this encounter: NORTH [...] hematoma. He is anticoagulated with rivaroxaban for [id number] Score: 1 (for HTN). He is being [...] esophageal problems, then resume home famotidine. - licensed guide to evaluate for recurrence of atrial arrhythmias [...] hesitate to contact me. Sincerely, Renee Calle APRN-MAINTENANCE TRAINER Clinical Electrophysiology, Division of Cardiovascular Medicine, [facility] SUBJECTIVE Today the patient reports feeling [...] denoted below, which was conducted during the [facility] Emergency in an effort to [...] complexity was moderate. documented in this encounter [facility] 07-06-2021 History of Present illness Narrative Edmond [...] The next day telemedicine follow-up by EP LABORATORY ENGINEER has been scheduled. All questions were addressed. Edmond Lama is appropriate and ready for same day discharge. documented in this encounter [facility] 07-06-2021 Note Formatting of this n ote might be different from the original. Discharge instructions given to and patient, verbalized understanding [facility] Miscellaneous Notes Discharge instructions given to [...] monitor shows . documented in this encounter [facility] 07-06-2021 Note Formatting of this n ote might be different from the original. July 06, 2021 [facility] Bejarano [address] [place] [address] RE: EDMOND LAMA DATE OF SERVICE:07/06/21 Dear [...] to contact me. Sincerely, Azalea Leigh MD [facility] Work Phone: 07-06-2021 Miscellaneous Notes July 06, 2021 CARMENZA Bejarano [address] [place] [address] RE: EDMOND LAMA DATE OF SERVICE:07/06/21 Dear [...] doses of Xarelto. Russell Gonzalez MD PGY6 [employer] Pager: [phone] documented in this encounter [facility] 07-06-2021 Note Formatting of this n ote might be different from the original. Patient brought to [facility] lab and discovered to be in NSR. Per Dr. Leigh's last note and after discussing with him this morning, [facility] was canceled due to patient being in SR and and missing no doses of Xarelto. Russell Gonzalez MD PGY6 [employer] Pager: [phone] [facility] Work Phone: 07-06-2021 History and physical note [...] History: Procedure Laterality Date KIDNEY TRANSPLANT W/O KANATAK NEPHRECTOMY N/A 08/01/2019 Laterality: N/A; Surgeon: Kathy Mora MD, PhD; Location: [facility] MAIN OR HERNIA REPAIR 04/2013 CHOLECYSTECTOMY 2004 RENAL TRANSPLANT 11/04/1996 LR (brother) at [place] LYMPHOCELE DRAINAGE Medications Prior to Admission Medication [...] was the last dose taken. 07/05 AM [id number]- Vasc score: 1 ( HTN ) Previous [...] EP Staff Division of Cardiovascular Medicine Pager: [phone] [facility] 07-06-2021 History and physical note Images from [...] History: Procedure Laterality Date KIDNEY TRANSPLANT W/O KANATAK NEPHRECTOMY N/A 08/01/2019 Laterality: N/A; Surgeon: Kathy Mora MD, PhD; Location: [facility] MAIN OR HERNIA REPAIR 04/2013 CHOLECYSTECTOMY 2004 RENAL TRANSPLANT 11/04/1996 LR (brother) at [place] LYMPHOCELE DRAINAGE Medications Prior to Admission Medication [...] was the last dose taken. 07/05 AM [id number]- Vasc score: 1 ( HTN ) Previous [...] EP Staff Division of Cardiovascular Medicine Pager: [phone] documented in this encounter [facility] 07-06-2021 Note Formatting of this n ote [...] given to pt. Tele monitor shows . 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 MARKUS BARCLAY MD. OK TO SCHEDULE AT [facility] ENDOSCOPY.; Due:06Oct2020;Ordered; Stat; For:Chronic GERD, Dysphagia, Schatzki's ring; Ordered By:Lynda Vargas; Patient competent to provide consent? : Yes-pt mentally competent to provide consent Hemorrhoids, History of colon polyps, Loose stools, Rectal bleeding Colonoscopy Diagnostic; Status:Active; Requested for:08Jul2020; Perform:[facility]; Order Comments:OBTAIN CARDIAC CLEARANCE AND CLEARANCE TO HOLD ELIQUIS 3 DAYS PRIOR TO ENDOSCOPY FROM DR. MARKUS BARCLAY MD. OK TO SCHEDULE AT [facility].; Due:[id number];Ordered; Stat; For:Hemorrhoids, History of colon polyps, Loose [...] to be scheduled on separate dates at [facility] pending Cardiac Clearance from Dr. Markus [...] mixing and drinking quickly. This product is nujp-pic-lvuvaqg and will help maintain regular bowel habits. 9. Begin a trial of a probiotic such as Culturelle 1 capsule daily. This product is rdcs-osv-icolill and may help with occasional loose stools or symptoms of irritable bowel syndrome. Provider Impressions 1. Rectal bleeding 2. Hemorrhoids 3. Intermittent loose stools 4. Personal history of colon polyps 5. Chronic GERD 6. Intermittent dysphagia with history of Schatzki ring 7. Long-term/current anticoagulation therapy with Eliquis for atrial fibrillation. Bottom Finisher is Dr. Markus Barclay MD. Chief Complaint [...] COMPLAINT: Rectal bleeding, hemorrhoids History of Present [id number] - Year old male presents today via telephone encounter for evaluation of a 4 month history of intermittent bright red rectal bleeding following a bowel movement. Patient believes this may be secondary to hemorrhoids. He is not currently using any gqgc-czv-kmoqyhe treatments for hemorrhoids. Bowel movements are daily [...] in the ev (more content not included)... [facility] 04-02-2020 Note Patient Outreach (CO OCC3) EDMOND LAMA ([id number]) 1960 M [facility] Date Time Provider Department 04/02/20 LAKESHA SANCHEZ During your visit today, we recorded the following information about you: Allergies As of Date: 04/02/2020 Noted Allergy Reaction [id number] REDUCTASE INHIBIT*01/20/2015 10 - Anaphylaxis 14 - Other: See Comments Comments: Muscle weakness Date Reviewed: 12/13/2017 Reviewed by: Lashae Burns) MORGAN Nunez - Fully Assessed Order(s):SARS-COVID VACCINE 1ST DOSE APPT [26910DHB] Order #: [id number] FUTURE Prescriptions as of 04/02/2020 Sig: CINACALCET 60 MG TABLET Take 60 mg by mouth once ángel* VITAMIN B COMPLEX-VITAMIN C-F* Take 0.8 mg [...] Encounter Status:Closed by SHENA PRODUSER on 04/06/20 [facility] Evaluation note Diagnosis Nonrheumatic aortic (valve) insufficiency Nonrheumatic aortic valve insufficiency Aortic valve disorders documented in this encounter [facility] Work Phone: Evaluation noteNo assessment information available [facility] Work Phone: Evaluation note* Diagnosis PAF (paroxysmal atrial fibrillation) Atrial fibrillation PAF (paroxysmal atrial fibrillation) Atrial fibrillation [facility] Paroxysmal atrial fibrillation- Primary Atrial fibrillation Hypertension, essential Unspecified essential hypertension [facility] Kidney replaced by transplant- Primary Abnormal blood chemistry Other abnormal blood chemistry Aftercare following organ transplant Immunosuppressed status Unspecified disorder of immune mechanism High risk medication use Encounter for long-term (current) use of other medications [facility] Diagnosis Primary hypertension- Primary Unspecified essential hypertension History of renal transplant Gastroesophageal reflux disease without esophagitis Esophageal reflux Statin intolerance PAF (paroxysmal atrial fibrillation) (CMS/HCC) (HCC) Atrial fibrillation [facility] Diagnosis Gastroesophageal reflux disease without esophagitis- Primary Esophageal reflux Primary hypertension Unspecified essential hypertension PAF (paroxysmal atrial fibrillation) (HCC) Atrial fibrillation Aortic valve insufficiency, etiology of cardiac valve disease unspecified Polycystic kidney disease Congenital polycystic kidney, unspecified type History of renal transplant Prostate cancer screening Special screening for malignant neoplasm of prostate Hyperlipidemia, unspecified hyperlipidemia type [facility] this [facility] Diagnosis PAF (paroxysmal atrial fibrillation) (HCC) Atrial fibrillation Dilatation of aortic sinus of Valsalva [facility] Diagnosis Dilatation of aortic sinus [...] [facility] renal [facility] Primary hypertension Unspecified essential hypertension [facility] Primary hypertension Unspecified essential hypertension [facility] Diagnosis Palpitations- Primary Nonrheumatic aortic valve insufficiency [facility]ative)No reason for referral information [facility] Work Phone: Reason for visit Narrative* Auth/Cert Specialty Diagnoses / Procedures Referred By Brennen raymond Referred To Contact Diagnoses PAF (paroxysmal atrial fibrillation) PAF (paroxysmal atrial fibrillation) [I48.0] Procedures IA COMPRE EP EVAL ABLTJ ATR FIB PULM VEIN ISOLATION ABLATION SCHED INTERCARDIAC A-FIB TRANSEPTAL BY PULM VEIN ISOLATION W/EP EVAL ([id number]) Referral ID Status Reason Start Date Expiration Date Visits Re quested Visits Authorized [id number] 1 1 [facility]* Imaging (Routine) - Closed Specialty Diagnoses / Procedures Referred By Brennen raymond Referred To Contact Cardiology Diagnoses PAF (paroxysmal atrial fibrillation) (HCC) Dilatation of aortic sinus of Valsalva Aortic valve insufficiency, etiology of cardiac valve disease unspecified Procedures Transthoracic echocardiogram (TTE) complete with contrast, bubble, strain, and 3D PRN IA ECHO TTHRC R-T 2D W/WOM-MODE COMPL SPEC&COLR D IA TTE W OR WO FOL WCON,DOPPLER Ace Messina MD [address] [place] [address] [address] [place] [address] Phone: tel: fax: Referral ID Status Reason Start Date Expiration Date Visits Re quested Visits Authorized [id number] Closed 12/25/2023 12/24/2024 1 1 [facility] Summary Purpose Family History No Family History Records FoundUnknown Family Member Name Dates Details Denies Family history of mal ignant neoplasm of colon: Other(V16.0, Z80.0) Status: : Mother, Father Status:Active Relationship Condition Age at Onset Recorded Date/T carol Not Specified Polycystic kidney disease Unknown Advance Directives No Advanced Directives Records FoundDocuments on File Type Date Recorded Patient Building Drafting Officer Expl anation Advance Directives and Living Will Power of Communications Controller Latest Code Status on File Code Status Date Activated Date Inactivated Comments Full Code 10/09/2018 7:56 AM Full Code 07/20/2018 8:21 AM 07/22/2018 3:24 PM Documents on File Type Date Recorded Patient Building Drafting Officer Expl anation Advance Directives and Living Will Power of Communications Controller Latest Code Status on File Code Status [...] Documents on File Type Date Recorded Patient Building Drafting Officer Expl anation ACP-Advance Directive ACP-Power of Communications Controller Advance Directive Response Recorded Date/ Time Living Will Yes November 25 12:37pm Power of Communications Controller Yes November 25, 2020 12:37pm Latest Code [...] Will Yes November 25 11:37am Power of Communications Controller Yes November 25, 2020 11:37am Discharge Instructions [...] Cook RN - 09/20/2018 Please bring your [facility] Surgical Information folder on the [...] through Care Everywhere. * Hemodialysis Access: Pre-op (Colombian) documented in this encounter History of Present [...] Cardiac event monitor Markus Barclay MD [address] [place] [address] Status Reason Specialty Diagnoses / Procedures Referre d By Contact Referred To Contact Open Cardiology Diagnoses Grade 3 out of 6 intensity murmur Aortic dilatation (HCC) Chronic renal failure, stage 5 (HCC) Essential hypertension ESRD on dialysis (HCC) Procedures ECHO Complete 2D W Doppler W Color Fouzia Pool, EMPLOYEE SERVICE OFFICER - MAINTENANCE TRAINER [address] [place] [address] Status Reason Specialty Diagnoses / Procedures Referre d By Contact Referred To Contact Closed Cardiology Diagnoses Nonrheumatic aortic valve insufficiency Procedures ECHO Complete 2D W Doppler W Color Sarah Charles PA-C [address] [place] [address] Specialty Diagnoses / Procedures Referred By Contac t Referred To Contact Diagnoses PAF (paroxysmal atrial fibrillation) Procedures MOBILE CARDIAC TELEMETRY Amber Ryan, EMPLOYEE SERVICE OFFICER-MAINTENANCE TRAINER [address] [place] [address] Referral ID Status Reason Start Date Expiration Date V isits Requested Visits Authorized [id number] New Request 07/06/2021 07/31/2022 1 1 Specialty Diagnoses / Procedures Referred By Contac t Referred To Contact Cardiology Diagnoses PAF (paroxysmal atrial fibrillation) (HCC) Dilatation of aortic sinus of Valsalva Procedures Transthoracic echocardiogram (TTE) complete with contrast, bubble, strain, and 3D PRN IA ECHO TTHRC R-T 2D W/WOM-MODE COMPL SPEC&COLR D IA TTE W OR WO SHADI ESQUIVEL Fatima, MD [address] [place] [address] [address] [place] [address] Referral ID Status Reason Start Date Expiration Date Visits Re quested Visits Authorized [id number] Closed 12/15/2022 12/15/2023 1 1 Specialty Diagnoses / Procedures Referred By Contac t Referred To Contact Cardiology Diagnoses Paroxysmal atrial fibrillation (CMS/HCC) (HCC) Dilated aortic root (CMS/HCC) (HCC) Procedures Transthoracic echocardiogram (TTE) complete with contrast, bubble, strain, and 3D PRN IA ECHO TTHRC R-T 2D W/WOM-MODE COMPL SPEC&COLR D IA TTE W OR WO SHADI ESQUIVEL Fatima, MD [address] [facility] [address] [place] [address] [facility] Non-Invasive Cardiology [address] [place] [phone] Referral ID Status Reason Start Date Expiration Date V isits Requested Visits Authorized [id number] Closed Perform Procedure 03/08/2022 06/05/2022 1 1 [...] section and content) DATE CREATED AUTHOR 08/01/2017 [facility] [employer] DATE CREATED AUTHOR AUTHOR'S ORGANIZ ATION 10/10/2018 [facility] DATE CREATED AUTHOR AUTHOR'S ORGANIZ ATION 10/12/2018 [facility] DATE CREATED AUTHOR AUTHOR'S ORGANIZ ATION 05/27/2020 [facility] DATE CREATED AUTHOR AUTHOR'S ORGANIZ ATION 07/09/2020 [employer] DATE CREATED AUTHOR AUTHOR'S ORGANIZ ATION 08/17/2020 [facility] DATE CREATED AUTHOR AUTHOR'S ORGANIZ ATION 02/15/2021 [facility] DATE CREATED AUTHOR AUTHOR'S ORGANIZ ATION 03/12/2021 [facility] DATE CREATED AUTHOR AUTHOR'S ORGANIZ ATION 12/08/2021 [facility] DATE CREATED AUTHOR AUTHOR'S ORGANIZ ATION 04/20/2024 [facility] DATE CREATED AUTHOR AUTHOR'S ORGANIZ ATION 08/08/2024 [facility] Reason for Visit (unrecogniz ed section and [...] with contrast, bubble, strain, and 3D PRN IA ECHO TTHRC R-T 2D W/WOM-MODE COMPL SPEC&COLR D IA TTE W OR WO SHADI ESQUIVEL Fatima, MD [address] [facility] [address] [place] [address] Referral ID Status Reason Start Date Expiration Date Visits Re quested Visits Authorized [id number] Closed 12/15/2022 12/15/2023 1 1 Reason Onset [...] with contrast, bubble, strain, and 3D PRN IA ECHO TTHRC R-T 2D W/WOM-MODE COMPL SPEC&COLR D IA TTE W OR WO SHADI ESQUIVEL Fatima, MD [address] [facility] [address] [place] [id number] [facility] Non-Invasive Cardiology [address] [place] [phone] Referral ID Status Reason Start Date Expiration Date V isits Requested Visits Authorized [id number] Closed Perform Procedure 03/08/2022 06/05/2022 1 1 [...] 1652, Intra-op/Intra-Proc 1509 (Given - Provid er: zAalea Leigh MD) magnesium oxide (MAG-OX) tablet 800 [...] Care Teams (unrecognized sec tion and content) Social Media Marketing Manager Relationship Specialty Start Date End Date Minor Beasley, DO PCP - General Family Medicine 10/31/19 Azalea Leigh MD [address] [place] [address] PCP - Referring 1 Clinical Cardiac Electrophysiology 07/06/21 Bharath Madera MBBS [address] [place] [phone] PCP - Referring 2 Nephrology 07/06/21 Liane Grayson MD Internal Medicine 10/31/19 Social Media Marketing Manager Relationship Specialty Start Date End Date LuchoMinor garnett DO PCP - General Family Medicine 10/31/19 Azalea Leigh MD [address] [place] [address] PCP - Referring 1 Clinical Cardiac Electrophysiology 07/06/21 Bharath Madera MBBS [address] [place] [address] PCP - Referring 2 Nephrology 07/06/21 Liane Grayson MD Internal Medicine 10/31/19 Social Media Marketing Manager Relationship Specialty Start Date End Date DelfinMinor DO PCP - General Family Medicine 10/31/19 Azalea Leigh MD [address] [place] [address] PCP - Referring 1 Clinical Cardiac Electrophysiology 07/06/21 Bharath Madera MBBS [address] [place] [address] PCP - Referring 2 Nephrology 07/06/21 Liane Grayson MD Internal Medicine 10/31/19 Social Media Marketing Manager Relationship Specialty Start Date End Date Minor Beasley DO PCP - General Family Medicine 10/31/19 Azalea Leigh MD [address] [place] [address] PCP - Referring 1 Clinical Cardiac Electrophysiology 07/06/21 Bharath Madera MBBS [address] [place] [address] PCP - Referring 2 Nephrology 07/06/21 Liane [...] PLASENCIA Attending Provider, Referring Provid er Active Social Media Marketing Manager Relationship Specialty Start Date End Date Minor Beasley DO [address] [place] [phone] PCP - General 12/19/19 Social Media Marketing Manager Relationship Specialty Start Date End Date Minor Beasley DO [address] [place] [address] PCP - General 12/19/19 Social Media Marketing Manager Relationship Specialty Start Date End Date AmosMinor norwood, DO [address] [place] [address] PCP - General 12/19/19 Team Status: Active Member Role Status Dates Dr. Ramon Carrillo MD Primary Care Provider Active Dr. Kosta Leal MD Attending Provider, Referring Pr ovider Active Team Status: Inactive Member Role Status Dates Dr. Ramon Carrillo MD Primary Care Provider Active Dr. Kosta Leal MD Attending Provider, Referring Pr ovider Active Social Media Marketing Manager Relationship Specialty Start Date End Date Minor Beasley, DO [address] [place] [address] PCP - General 12/19/19 Social Media Marketing Manager Relationship Specialty Start Date End Date Minor Beasley, DO [address] [place] [address] PCP - General 12/19/19 Social Media Marketing Manager Relationship Specialty Start Date End Date Minor Beasley, DO [address] [place] [address] PCP - General 12/19/19 Social Media Marketing Manager Relationship Specialty Start Date End Date Minor Beasley, DO [address] [place] [phone] PCP - General 12/19/19 Social Media Marketing Manager Relationship Specialty Start Date End Date Minor Beasley, DO [address] [place] [phone] PCP - General 12/19/19 Social Media Marketing Manager Relationship Specialty Start Date End Date Minor Beasley, [address] [place] [address] PCP - General 12/19/19 Social Media Marketing Manager Relationship Specialty Start Date End Date Minor Beasley DO [address] [place] [address] PCP - General 12/19/19 Social Media Marketing Manager Relationship Specialty Start Date End Date Minor Beasley, [address] [place] [address] PCP - General 12/19/19 Social Media Marketing Manager Relationship Specialty Start Date End Date Minor Beasley, [address] [place] [address] PCP - General 12/19/19 Social Media Marketing Manager Relationship Specialty Start Date End Date Minor Beasley DO [address] [place] [phone] PCP - General 12/19/19 Social Media Marketing Manager Relationship Specialty Start Date End Date Minor Beasley, [address] [place] [address] PCP - General 12/19/19 Social Media Marketing Manager Relationship Specialty Start Date End Date Minor Beasley, [address] [place] [phone] PCP - General 12/19/19 Social Media Marketing Manager Relationship Specialty Start Date End Date Minor Beasley, [address] [place] [address] PCP - General 12/19/19 Team Status: Inactive Member Role Status Dates Dr. Ramon Carrillo MD Primary Care Provider Active Start: April 03, 2024 End: April 03, 2024 Dr. Dilan Grayson MD Attending Provider Active Start: April 03, 2024 End: April 03, 2024 Dr. Dilan Grayson MD Referring Provider Active Start: April 03, 2024 End: April 03, 2024 Social Media Marketing Manager Relationship Specialty Start Date End Date Minor Beasley, [address] [place] [address] PCP - General 12/19/19 Social Media Marketing Manager Relationship Specialty Start Date End Date Minor Beasley, [address] [place] [address] PCP - General 12/19/19 Social Media Marketing Manager Relationship Specialty Start Date End Date Minor Beasley, [address] [place] [address] PCP - General 12/19/19 Social Media Marketing Manager Relationship Specialty Start Date End Date Minor Beasley, [address] [place] [address] PCP - General 12/19/19 Social Media Marketing Manager Relationship Specialty Start Date End Date Minor Beasley, [address] [place] [address] PCP - General 12/19/19 Social Media Marketing Manager Relationship Specialty Start Date End Date Minor Beasley, [address] [facility] [address] [place] [phone] PCP - General 12/19/19 FOR RECORDS PERTAINING [...] BE BASED ON THE PRIMARY CLINICAL RECORDS. [facility]. provides no warranty or guarantee of the accuracy or completeness of information in this document.
[2024-10-29 10:25] LABS: Hematocrit 44.7 % (40-54); Hemoglobin 14.4 g/dL (13.0-16.5); Mean Corp Hgb Conc 32.2 g/dL (32-36); Mean Corpuscular Volume 89.0 fL (80-94); Mean Platelet Vol. 10.2 fl (6.2-12.0); Platelet Count 190 K/mm3 (150-450); RBC Distribution Width CV 12.5 % (11.6-14.6); RBC Distribution Width SD 40.8 fl (35.1-43.9); Red Blood Count 5.02 M/mm3 (4.6-6.2); White Blood Count 6.1 K/mm3 (4.4-11.0)
[2024-10-29 10:40] LABS: PTHIN 105 pg/mL (11-61)
[2024-10-29 10:50] LABS: Creatinine, Urine (random) 150.00 mg/dL (39.00-259.00); Protein, Urine (Random) 12.0 mg/dL (0.0-12.0); Protein:Creat Ratio 80 mg/g CRE (0-200)
[2024-10-29 10:59] LABS: Albumin, Serum 3.9 g/dL (3.4-4.8); Anion Gap 10 (5-15); BUN 15 mg/dL (4-19); BUN/Creat Ratio 13.2 RATIO (10-20); Calcium,Total 10.1 mg/dL (7.6-11.0); Carbon Dioxide 24.2 mmol/L (21.0-32.0); Chloride 109 mmol/L (98-108); Glucose 112 mg/dL (70-99); Potassium 4.0 mmol/L (3.3-5.1)
[2024-10-29 11:10] LABS: Vitamin D,25 Hydroxy 58.6 ng/mL (30-100)
== END | disposition home or self-care (01) ==
LOC: MTLAB 07:31
PROVIDERS: PCP Family Medicine; Referring Provider Internal Medicine Nephrology; Visit Provider Internal Medicine Nephrology
DX: D64.9 Anemia, unspecified (principal); Z94.0 Kidney transplant status
CPT/HCPCS: 36415; 80069; 80197; 82306; 82570; 83970; 84156; 85027